=== PATIENT | female | born 1935 | race Caucasian/White ===

== ENCOUNTER 2020-01-25 10:12 | Outpatient (REF) | payer MEDICARE, SELFPAY ==
[2020-01-25 11:16] LABS: MANUAL DIFF FLAG NO
[2020-01-25 11:28] LABS: Basophils Absolute Auto 0.1 X10*3/uL (0.0-0.2); Basophils Percent Auto 0.7 % (0-2); Eosinophils Absolute Auto 0.4 X10*3/uL (0.0-0.4); Eosinophils Percent Auto 4.9 % (0-4); Hematocrit 41.4 % (37-47); Hemoglobin 12.9 g/dl (12.0-16.0); Imm Gran Abs Auto 0.02 X10*3/uL (0.00-0.03); Imm Gran Pct Auto 0.2 % (0.0-0.4); Lymphocytes Absolute Auto 1.8 X10*3/uL (1.2-4.9); Lymphocytes Percent Auto 21.5 % (20-40); Mean Corpuscular HGB Conc 31.2 g/dl (31.0-35.0); Mean Corpuscular Hemoglobin 28.5 pg (27.0-33.0); Mean Corpuscular Volume 91.6 fL (80-98); Mean Platelet Volume 9.8 fL (9.4-12.3); Monocytes Absolute Auto 0.8 X10*3/uL (0.1-1.2); Monocytes Percent Auto 9.1 % (2-11); Neutrophils Absolute Auto 5.4 X10*3/uL (2.0-8.3); Neutrophils Percent Auto 63.6 % (45-73); Platelet Count 420 X10*3/uL (160-400); Red Blood Count 4.52 X10*6/uL (4.20-5.50); Red Cell Distribution Width 14.2 % (11.0-16.0); White Blood Count 8.6 X10*3/uL (4.8-10.8)
[2020-01-25 11:54] LABS: Alanine Aminotransferase 11 U/L (0-31); Albumin Level 4.1 g/dL (3.5-5.0); Alkaline Phosphatase 125 U/L (39-117); Anion Gap 12 (12-20); Aspartate Amino Transferase 24 U/L (5-31); Bilirubin Total 0.8 mg/dL (0.0-1.0); Blood Urea Nitrogen 26 mg/dL (9-16); Calcium 9.5 mg/dL (8.4-10.2); Carbon Dioxide 35 mmol/L (22-29); Chloride 97 mmol/L (96-108); Cholesterol 129 mg/dL; Estimated Glomerular Filt Rate 40; Glucose Fasting 102 mg/dL (60-99); HDL Cholesterol 43 mg/dL; LDL Cholesterol Calculated 57 mg/dl; Potassium 3.8 mmol/l (3.3-5.1); Sodium 140 mmol/L (135-145); Total Protein 7.4 g/dL (6.5-8.0); Triglycerides 145 mg/dL; Uric Acid 3.7 mg/dL (2.4-5.7)
[2020-01-25 12:18] LABS: Thyroid Stimulating Hormone 3.45 mIU/mL (0.32-4.0); Vitamin D 25-OH Total 78.1 ng/mL (>30)
[2020-01-25 12:23] LABS: Folate 5.4 ng/mL (> or = 4.0); Vitamin B12 233 pg/mL (200-900)
[2020-01-25 12:47] LABS: T4 Thyroxine 11.2 ug/dL (4.5-12.0)
== END 2020-01-25 10:13 | disposition home or self-care (01) ==
LOC: HO.HMGCLDS 10:12
PROVIDERS: PCP Internal Medicine; Visit Provider Internal Medicine
DX: Z00.00 Encounter for general adult medical examination without abnormal findings (principal); E78.00 Pure hypercholesterolemia, unspecified; K21.9 Gastro-esophageal reflux disease without esophagitis; I10 Essential (primary) hypertension; M10.9 Gout, unspecified; E66.01 Morbid (severe) obesity due to excess calories; H81.09 Meniere's disease, unspecified ear; K59.00 Constipation, unspecified; Z85.51 Personal history of malignant neoplasm of bladder
CPT/HCPCS: 36415; 80053; 80061; 82306; 82607; 82746; 84436; 84443; 84550; 85025

== ENCOUNTER → 2020-04-25 14:41 | Outpatient (BNVA) | payer MEDICARE, SELFPAY | PROVIDERS: PCP Internal Medicine; Visit Provider Urology | DX: C67.9 Malignant neoplasm of bladder, unspecified (principal) | CPT/HCPCS: Q3014 ==

== ENCOUNTER 2020-05-20 10:32 | Outpatient (REF) | payer MEDICARE, SELFPAY ==
[2020-05-20 10:43] VITALS: BMI 92.0
[2020-05-20 10:45] VITALS: BP 131/64; PULSE 77; RESP 16; TEMP 36.3; O2SAT 95
== END 2020-05-20 10:33 | disposition home or self-care (01) ==
LOC: HO.MS 10:32
PROVIDERS: PCP Internal Medicine; Visit Provider Ophthalmology
PROC: (CPT 66821; principal; 2020-05-20 12:40)
DX: H26.491 Other secondary cataract, right eye (principal); Z96.1 Presence of intraocular lens; I12.9 Hypertensive chronic kidney disease with stage 1 through stage 4 chronic kidney disease, or unspecified chronic kidney disease; N18.30 Chronic kidney disease, stage 3 unspecified; Z85.51 Personal history of malignant neoplasm of bladder; Z87.891 Personal history of nicotine dependence; Z95.0 Presence of cardiac pacemaker; Z79.899 Other long term (current) drug therapy
CPT/HCPCS: 66821

== ENCOUNTER 2020-06-07 13:42 | Outpatient (REF) | payer MEDICARE, SELFPAY | END 2020-06-07 13:43 | disposition home or self-care (01) | LOC: CF 13:42 | PROVIDERS: PCP Internal Medicine; Visit Provider Urology | DX: C67.9 Malignant neoplasm of bladder, unspecified (principal) | CPT/HCPCS: Q3014 ==

== ENCOUNTER 2020-06-07 15:42 | Outpatient (REF) | payer MEDICARE, SELFPAY ==
--- NOTE | ~2020-06-07 | XR_ITS ---
EXAMINATION: XR WRIST, LEFT CLINICAL INFORMATION: Pain COMPARISON: None TECHNIQUE: Three views of the left wrist. FINDINGS: Bone alignment is normal. No fracture or dislocation is seen. There is severe arthritis at the first HALF-WAY joint with joint space narrowing and osteophyte formation and some periarticular soft tissue ossification. There is faint soft tissue calcification in the region of the triangular fibrocartilage complex. XR/XR wrist LT min 3V IMPRESSION: Severe arthritis at the first HALF-WAY joint.
== END 2020-06-07 15:43 | disposition home or self-care (01) ==
LOC: HO.HMGCX 15:42
PROVIDERS: PCP Internal Medicine; Visit Provider Hospitalist
DX: M25.532 Pain in left wrist (principal)
CPT/HCPCS: 73110

== ENCOUNTER 2020-06-11 06:11 | Day surgery (SDC) | payer MEDICARE, SELFPAY ==
--- NOTE | 2020-06-10 10:32 | P.CONAN_ITS ---
Documented by User: Sade Verena 06/10/20 12:05 HPI - Anesthesia Eval Consult details Narrative: 85yo F for TURBT Pt has cardiology appt 06/10/20 at 1500 Last TURBT 12/2019 with [facility] Active Problems Active Problems: All Active Problems (Updated 06/07/20 @ 15:31 by Chencho Ortiz DO) Left wrist pain (Acute) Vitamin B 12 deficiency (Acute) Impaired fasting blood sugar (Acute) Rosacea (Acute) Urinary bladder cancer (Acute) Obesity (Acute) Gout (Acute) Hypertension (Acute) GERD (gastroesophageal reflux disease) (Acute) Hypercholesterolemia (Acute) Past Medical History Medical History Arthritis GERD (gastroesophageal reflux disease) Gout Hypercholesterolemia Hypertension Menieres disease Obesity On beta jake at home MARIELA (obstructive sleep apnea) Peripheral vascular disease Sick sinus syndrome Urinary bladder cancer Vertigo Family History Family History Father Stroke Mother Heart disease Surgical History Surgical History History of appendectomy History of cataract surgery History of cholecystectomy History of cystoscopy History of knee replacement History of tonsillectomy Hx of colonoscopy S/P cardiac pacemaker procedure S/P MARION-BSO (total abdominal hysterectomy and bilateral salpingo-oophorectomy) Social History Social History Smoking Status: Former smoker Use of substances other than those prescribed or required for medical reasons: No Have you been hit, kicked, punched, or otherwise hurt by someone within the past year? If so, by whom?: No Advance Directives: No Advance Directives Information Provided: Yes Meds Allergies Allergy/AdvReac Type Severity Reaction Status Date / Time No Known Allergies Allergy Verified 06/07/20 15:23 [No Known Allergies*] Home Medications Medication Instructions Recorded Confirmed Last Taken Type amlodipine 5 mg tablet 5 mg PO DAILY 03/11/20 06/07/20 Unknown History aspirin 81 mg tablet,delayed 81 mg PO DAILY 03/11/20 06/07/20 Unknown History release cholecalciferol (vitamin D3) 25 25 mcg PO DAILY 03/11/20 06/07/20 Unknown History mcg (1,000 unit) capsule coenzyme Q10 100 mg capsule 100 mg PO DAILY 03/11/20 06/07/20 Unknown History hydrochlorothiazide 25 mg tablet 25 mg PO DAILY 03/11/20 06/07/20 Unknown History meclizine 25 mg tablet 25 mg PO DAILY 03/11/20 06/07/20 Unknown History metoprolol succinate 50 mg 50 mg PO DAILY 03/11/20 06/07/20 Unknown History tablet,extended release 24 hr polyethylene glycol 3350 17 gram 17 g PO DAILY 03/11/20 06/07/20 Unknown History oral powder packet simvastatin 1 tab PO BEDTIME 06/05/20 06/07/20 Unknown History bacitracin 500 unit/gram eye OPHTHALMIC (EYE) 06/07/20 06/07/20 Unknown History ointment Exam Exam Date and Time: June 10, 2020 1032 Pertinent Lab Results Pertinent Lab Results: Laboratory Tests 01/25/20 01/25/20 10:23 10:23 WBC 8.6 Hgb 12.9 Hct 41.4 Plt Count 420 H Sodium 140 Potassium 3.8 Chloride 97 Carbon Dioxide 35 H BUN 26 H Creatinine 1.27 Narrative Narrative: EKG 11/2019 A-sensed, V-paced @ 82 Pacer Interr 11/2019 DDR-60, battery life 4.5years, TUGGER OPERATOR 100% Documented by User: Emely Morales 06/11/20 07:30 HPI - Anesthesia Eval Consult details Narrative: Seen by cardiology yesterday. Stable from cardiac view point. Pacemaker working well. [facility] Past Medical History Medical History Arthritis GERD (gastroesophageal reflux disease) Gout Hypercholesterolemia Hypertension Menieres disease Obesity On beta jake at home MARIELA (obstructive sleep apnea) Peripheral vascular disease Sick sinus syndrome Urinary bladder cancer Vertigo Family History Family History Father Stroke Mother Heart disease Family history of problems with anesthesia: No Surgical History Surgical History History of appendectomy History of cataract surgery History of cholecystectomy History of cystoscopy History of knee replacement History of tonsillectomy Hx of colonoscopy S/P cardiac pacemaker procedure S/P MARION-BSO (total abdominal hysterectomy and bilateral salpingo-oophorectomy) History of Problems with Anesthesia: No Social History Social History Smoking Status: Former smoker Use of substances other than those prescribed or required for medical reasons: No Have you been hit, kicked, punched, or otherwise hurt by someone within the past year? If so, by whom?: No Advance Directives: No Advance Directives Information Provided: Yes Meds Allergies Allergy/AdvReac Type Severity Reaction Status Date / Time No Known Allergies Allergy Verified 06/07/20 15:23 [No Known Allergies*] Home Medications Medication Instructions Recorded Confirmed Last Taken Type amlodipine 5 mg tablet 5 mg PO DAILY 03/11/20 06/07/20 Unknown History aspirin 81 mg tablet,delayed 81 mg PO DAILY 03/11/20 06/07/20 Unknown History release cholecalciferol (vitamin D3) 25 25 mcg PO DAILY 03/11/20 06/07/20 Unknown History mcg (1,000 unit) capsule coenzyme Q10 100 mg capsule 100 mg PO DAILY 03/11/20 06/07/20 Unknown History hydrochlorothiazide 25 mg tablet 25 mg PO DAILY 03/11/20 06/07/20 Unknown History meclizine 25 mg tablet 25 mg PO DAILY 03/11/20 06/07/20 Unknown History metoprolol succinate 50 mg 50 mg PO DAILY 03/11/20 06/07/20 Unknown History tablet,extended release 24 hr polyethylene glycol 3350 17 gram 17 g PO DAILY 03/11/20 06/07/20 Unknown History oral powder packet simvastatin 1 tab PO BEDTIME 06/05/20 06/07/20 Unknown History bacitracin 500 unit/gram eye OPHTHALMIC (EYE) 06/07/20 06/07/20 Unknown History ointment Exam Height,Weight and Vital Signs: Vital Signs Temp Pulse Resp BP Pulse Ox 06/11/20 06:18 95.9 F L 74 18 151/75 H 96 Airway Mallampati Class: II TM Dist: >3cm Neck ROM: Full Denture: Upper and Lower Heart: RRR Lungs: CTAB Assessment and Plan Assessment Anesthesia Assessment: Anesthesia Plan Discussed and Chart Reviewed Final Anesthetic Review NPO: Yes ASA Class: III Final Preanesthetic Review: No Changes in Pt Med Stat, Meds/Allgs Chart Reviewed, Consent Obtained/Reviewed and Anes Risks/Benef Reviewed Patient Risk: Intermediate Procedure Risk: Intermediate Assessment/Block/Sedation in SS: Assess/Block/Sedation-SS Anesthetic Plan Anesthetic Plan: MAC: Disposition: Standard PACU
[2020-06-11 06:18] VITALS: BP 151/75; PULSE 74; RESP 18; TEMP 35.5; O2SAT 96; BMI 40.8
[2020-06-11] MEDS: Lactated Ringers 1,000 ML 50 ML IV (06:51)
--- NOTE | 2020-06-11 07:24 | MHC.SHP ---
Pre-Procedural Eval Section A The patient is an INPATIENT: No Changes since office visit: No Cold of Flu in the past 2 weeks, No New Medical Problems, No Changes in Medication and No Patient answered all questions The History & Physical has been completed within 30 days and I have reviewed it.: Yes Section B Chief Complaint: malignant of bladder Allergies: Allergies Allergy/AdvReac Type Severity Reaction Status Date / Time No Known Allergies Allergy Verified 06/07/20 15:23 [No Known Allergies*] Plan Diagnosis/Plan: Unchanged I have reviewed the history and physical and performed a pertinent physical examination on my patient. No changes have occurred unless specified. TURBT
[2020-06-11] MEDS: levoFLOXacin 500 MG TABLET PO (07:32)
--- NOTE | 2020-06-11 08:04 | PM.OP ---
Brief Operative Note Date of Service: 06/11/20 Pre-op diagnosis: Recurrent Bladder cancer Post-op diagnosis: same Procedure: TURBT multiple approximately 16. Ranging in size from 3 mm to 7 mm Surgeon: Francisco Dowell MD Anesthesia: GLMA Estimated blood loss (mL): 0 Pathology: other (Bladder cancer) Condition: stable Disposition: same day
--- NOTE | 2020-06-11 08:05 | W.PM.OPN ---
Operative Note Operative Note Date of Service: 06/11/20 Narrative: PreOperative Diagnosis: Recurrent bladder tumor Post Operative Diagnosis: Recurrent bladder cancer Procedure: TURBT-16 lesions, total surface area approximately 5 cm Surgeon: Dr Francisco Dowell Anesthesia: General Indications for procedure: This is a pleasant 85-year-old female. Prior history of bladder cancer. Typically had low-grade lesions in the past. Last TURBT in December 2019 did have high-grade noninvasive bladder cancer. She was due for 3 month review and this was delayed secondary to COVID. She is aware of the risks and benefits. Procedure: After informed consent was verified the patient was brought to the operating room and placed in a supine position. anesthesia was administered per protocol. The patient was placed in modified dorsal lithotomy position and prepped and draped in a sterile fashion. Safety pause time-out was performed. Antibiotics have been given. Resectoscope was placed. There were a large number of small between 3 mm and 7 mm lesions scattered throughout her bladder. These were removed with either cutting dissection or fulguration. Approximately 16 in nature. They came close to both ureteric orifices and at the bladder neck. Otherwise well mostly concentrated towards the dome of the bladder. Specimens were taken sent for pathology. Since most of the Christal resection was superficial decision was made not to leave Rivera catheter Completion of procedure above [facility] and opiate suppository was used for pain management She will require intravesical therapy after 2-4 week healing time frame. Pathology: Bladder cancer Drains: None
[2020-06-11 08:12] VITALS: BP 97/47; PULSE 70; RESP 20; TEMP 36.7; O2SAT 100
[2020-06-11 08:27] VITALS: BP 103/49; PULSE 60; RESP 20; O2SAT 93
[2020-06-11 08:42] VITALS: BP 105/56; PULSE 60; RESP 20; TEMP 36.7; O2SAT 94
== END 2020-06-11 09:29 | disposition home or self-care (01) ==
PROVIDERS: PCP Internal Medicine; Visit Provider Urology
PROC: 0TBB8ZZ Excision of Bladder, Via Natural or Artificial Opening Endoscopic (ICD-10-PCS; CPT 52235; principal; 2020-06-11 07:30)
DX: C67.8 Malignant neoplasm of overlapping sites of bladder (principal); Z85.51 Personal history of malignant neoplasm of bladder; I10 Essential (primary) hypertension; G47.33 Obstructive sleep apnea (adult) (pediatric); I73.9 Peripheral vascular disease, unspecified; H81.09 Meniere's disease, unspecified ear; I49.5 Sick sinus syndrome; Z79.899 Other long term (current) drug therapy
CPT/HCPCS: 52235; 88307; J1100; J2370; J2405; J3010

== ENCOUNTER → 2020-06-25 15:06 | Outpatient (BNVA) | payer MEDICARE, SELFPAY | PROVIDERS: PCP Internal Medicine; Visit Provider Urology | DX: Z13.89 Encounter for screening for other disorder (principal) | CPT/HCPCS: Q3014 ==

== ENCOUNTER 2020-07-29 14:19 | Outpatient (REF) | payer MEDICARE, SELFPAY ==
[2020-07-29 14:35] LABS: Glucose Urine UA NEG (NEG); Leukocyte Esterase Urine TRACE (NEG); Nitrite Urine NEG (NEG); Specific Gravity - Urine <= 1.005 (1.005-1.025); Urine Blood NEG (NEG); Urine Ketones NEG (NEG); Urine Protein NEG (NEG-TRACE)
[2020-07-29 14:47] LABS: Appearance Urine CLEAR; Color Urine YELLOW
[2020-07-29 15:07] LABS: Bacteria Urine TRACE /LPF; RBC Urine 0 /HPF (0); Squamous Epithelial Cell Urine TRACE /LPF
== END 2020-07-29 14:20 | disposition home or self-care (01) ==
LOC: HO.LNP 14:19
PROVIDERS: Visit Provider Urology
DX: C67.9 Malignant neoplasm of bladder, unspecified (principal)
CPT/HCPCS: 81001

== ENCOUNTER 2020-09-05 09:10 | Outpatient (REF) | payer MEDICARE, SELFPAY ==
[2020-09-05 13:54] LABS: MANUAL DIFF FLAG NO
[2020-09-05 14:03] LABS: Basophils Absolute Auto 0.1 X10*3/uL (0.0-0.2); Basophils Percent Auto 0.8 % (0-2); Eosinophils Absolute Auto 0.3 X10*3/uL (0.0-0.4); Eosinophils Percent Auto 3.1 % (0-4); Hematocrit 37.5 % (37-47); Hemoglobin 11.8 g/dl (12.0-16.0); Imm Gran Abs Auto 0.04 X10*3/uL (0.00-0.03); Imm Gran Pct Auto 0.4 % (0.0-0.4); Immature Retic Fraction 26.1 % (3.0-15.9); Lymphocytes Percent Auto 21.9 % (20-40); Mean Corpuscular HGB Conc 31.5 g/dl (31.0-35.0); Mean Corpuscular Hemoglobin 27.8 pg (27.0-33.0); Mean Corpuscular Volume 88.4 fL (80-98); Mean Platelet Volume 9.7 fL (9.4-12.3); Monocytes Percent Auto 10.5 % (2-11); Neutrophils Absolute Auto 5.8 X10*3/uL (2.0-8.3); Neutrophils Percent Auto 63.3 % (45-73); Platelet Count 467 X10*3/uL (160-400); Red Blood Count 4.24 X10*6/uL (4.20-5.50); Red Cell Distribution Width 18.5 % (11.0-16.0); Retic HGB Equivalent 30.2 pg (30.0-35.0); Reticulocyte Percent 1.6 % (0.5-1.8); Reticulocytes Absolute 0.067 X10*6/uL (0.026-0.095); White Blood Count 9.2 X10*3/uL (4.8-10.8)
[2020-09-05 14:07] LABS: Estimated Average Glucose 123 mg/dL; Hemoglobin A1c % 5.9 %
[2020-09-05 14:32] LABS: Alanine Aminotransferase 8 U/L (0-31); Albumin Level 3.9 g/dL (3.5-5.0); Alkaline Phosphatase 123 U/L (39-117); Anion Gap 16 (12-20); Aspartate Amino Transferase 23 U/L (5-31); Bilirubin Total 0.7 mg/dL (0.0-1.0); Blood Urea Nitrogen 19 mg/dL (9-16); Calcium 9.5 mg/dL (8.4-10.2); Carbon Dioxide 29 mmol/L (22-29); Chloride 97 mmol/L (96-108); Cholesterol 118 mg/dL; Estimated Glomerular Filt Rate 50; Glucose Random 96 mg/dL (60-115); HDL Cholesterol 44 mg/dL; Iron 44 mcg/dL (30-160); LDL Cholesterol Calculated 56 mg/dl; Percent Iron Saturation 10 % (15-50); Sodium 138 mmol/L (135-145); Total Iron Binding Capacity 438 mcg/dL (228-428); Total Protein 7.3 g/dL (6.5-8.0); Triglycerides 90 mg/dL; Unsaturated Iron Binding 394 ug/dL; Uric Acid 3.7 mg/dL (2.4-5.7)
[2020-09-05 14:55] LABS: Ferritin 24 ng/mL (10-250); Free T4 (Free Thyroxine) 1.28 ng/dL (0.71-1.85); Thyroid Stimulating Hormone 1.91 uIU/mL (0.32-4.0)
[2020-09-05 15:00] LABS: Folate 4.3 ng/mL (> or = 4.0); Vitamin B12 204 pg/mL (200-900)
== END 2020-09-05 09:11 | disposition home or self-care (01) ==
LOC: HO.HMGCLDS 09:10
PROVIDERS: PCP Internal Medicine; Visit Provider Urology
DX: C67.9 Malignant neoplasm of bladder, unspecified (principal); E78.00 Pure hypercholesterolemia, unspecified; E53.8 Deficiency of other specified B group vitamins; R73.01 Impaired fasting glucose; M1A.9XX0 Chronic gout, unspecified, without tophus (tophi)
CPT/HCPCS: 36415; 80053; 80061; 82306; 82607; 82728; 82746; 83036; 83540; 84439; 84443; 84550; 85025; 85045; 99212

== ENCOUNTER 2020-10-07 08:38 | Day surgery (SDC) | payer MEDICARE, SELFPAY ==
[2020-10-01 10:19] VITALS: BMI 40.8
[2020-10-07 09:05] VITALS: BP 143/61; PULSE 70; RESP 18; TEMP 37.1; O2SAT 94
[2020-10-07] MEDS: levoFLOXacin 500 MG TABLET PO (09:11)
--- NOTE | 2020-10-07 09:31 | P.CONAN_ITS ---
[facility] Active Problems Active Problems: All Active Problems (Updated 10/01/20 @ 10:22 by Sakina guadarrama) Vitamin B 12 deficiency (Acute) Impaired fasting blood sugar (Acute) Rosacea (Acute) Left wrist pain (Acute) Tinea corporis (Acute) Peripheral vascular disease (Acute) Urinary bladder cancer (Acute) Obesity (Acute) Gout (Acute) Hypertension (Acute) GERD (gastroesophageal reflux disease) (Acute) Hypercholesterolemia (Acute) Past Medical History Medical History Arthritis COVID-19 vaccine administered GERD (gastroesophageal reflux disease) Gout Hypercholesterolemia Hypertension Menieres disease Obesity On beta jake at home MARIELA (obstructive sleep apnea) Peripheral vascular disease Sick sinus syndrome Urinary bladder cancer Vertigo Family History Family History Father Stroke Mother Heart disease Family history of problems with anesthesia: No Surgical History Surgical History History of appendectomy History of cataract surgery History of cholecystectomy History of cystoscopy History of knee replacement History of tonsillectomy Hx of colonoscopy S/P cardiac pacemaker procedure S/P MARION-BSO (total abdominal hysterectomy and bilateral salpingo-oophorectomy) History of Problems with Anesthesia: No Social History Social History Alcohol intake: current Alcohol intake frequency: holidays/special occasions only Patient Tobacco Use Status: Tobacco use Unknown Use of substances other than those prescribed or required for medical reasons: No Advance Directives Information Provided: No Meds Allergies Allergy/AdvReac Type Severity Reaction Status Date / Time No Known Allergies Allergy Verified 09/05/20 09:23 [No Known Allergies*] Home Medications Medication Instructions Recorded Confirmed Last Taken Type amlodipine 5 mg tablet 5 mg PO DAILY 03/11/20 10/01/20 10/07/20 History aspirin 81 mg tablet,delayed 81 mg PO DAILY 03/11/20 10/01/20 10/01/20 History release cholecalciferol (vitamin D3) 25 25 mcg PO DAILY 03/11/20 10/01/20 Unknown History mcg (1,000 unit) capsule coenzyme Q10 100 mg capsule 100 mg PO DAILY 03/11/20 09/03/20 Unknown History hydrochlorothiazide 25 mg tablet 25 mg PO DAILY 03/11/20 10/01/20 Unknown History meclizine 25 mg tablet 25 mg PO DAILY 03/11/20 10/01/20 Unknown History metoprolol succinate 50 mg 50 mg PO DAILY 03/11/20 10/01/20 10/07/20 History tablet,extended release 24 hr polyethylene glycol 3350 17 gram 17 g PO DAILY 03/11/20 10/01/20 Unknown History oral powder packet peg 400-propylene glycol [Systane drp OPHTHALMIC (EYE) 07/09/20 09/03/20 Unknown History Liquid Gel] cyclosporine 0.05 % eye drops in a 1 drp OPHTHALMIC (EYE) BID 09/05/20 Unknown History dropperette lifitegrast 5 % eye drops in a 1 drp OPHTHALMIC (EYE) BID 09/05/20 Unknown History dropperette metronidazole 0.75 % topical cream 1 appl TOPICAL BID 09/05/20 Unknown History Exam Exam Date and Time: October 07, 2020 0931 Height,Weight and Vital Signs: Height 5 ft 1 in Weight 97.976 kg Last Vital Signs Temp 98.7 F 10/07/20 09:05 Pulse 70 10/07/20 09:05 Resp 18 10/07/20 09:05 BP 143/61 H 10/07/20 09:05 Pulse Ox 94 10/07/20 09:05 Airway Mallampati Class: II TM Dist: >3cm Neck ROM: Full Assessment and Plan Assessment Anesthesia Assessment: Anesthesia Plan Discussed and Chart Reviewed Final Anesthetic Review NPO: Yes ASA Class: III Final Preanesthetic Review: No Changes in Pt Med Stat, Meds/Allgs Chart Reviewed, Consent Obtained/Reviewed and Anes Risks/Benef Reviewed Patient Risk: Intermediate Procedure Risk: Low Assessment/Block/Sedation in SS: Assess/Block/Sedation-SS Anesthetic Plan Anesthetic Plan: MAC: Disposition: Standard PACU
--- NOTE | 2020-10-07 10:08 | MHC.SHP ---
Pre-Procedural Eval Section A Date of Service: 10/07/20 The patient is an INPATIENT: No Changes since office visit: No Cold of Flu in the past 2 weeks, No New Medical Problems, No Changes in Medication and No Patient answered all questions The History & Physical has been completed within 30 days and I have reviewed it.: Yes Section B Chief Complaint: malignant neoplasm of bladder Allergies: Allergies Allergy/AdvReac Type Severity Reaction Status Date / Time No Known Allergies Allergy Verified 09/05/20 09:23 [No Known Allergies*] Plan Diagnosis/Plan: Unchanged ( cystoscopy, bladder biopsy, fulguration) I have reviewed the history and physical and performed a pertinent physical examination on my patient. No changes have occurred unless specified.
[2020-10-07] MEDS: Lactated Ringers 500 ML 20 ML IVCONT (10:15)
[2020-10-07 10:35] VITALS: BP 118/41; PULSE 60; RESP 16; TEMP 36.4; O2SAT 99
--- NOTE | 2020-10-07 10:35 | W.PM.OPN ---
Operative Note Operative Note Date of Service: 10/07/20 Narrative: PreOperative Diagnosis: bladder cancer Post Operative Diagnosis: bladder cancer Procedure: TURBT Surgeon: Dr Francisco Dowell Anesthesia: general Indications for procedure: Joya is a pleasant 85-year-old female. Had bladder cancer diagnosed late last year. Has undergone TURBT x2. Had induction gemcitabine. She is here for her 3 month check cystoscopy and biopsy is needed. Procedure: After informed consent was verified the patient was brought to the operating room and placed in a supine position. anesthesia was administered per protocol. the patient was placed in a modified dorsal lithotomy position and prepped and draped in a sterile fashion. Safety pause time-out was performed. Antibiotics were confirmed. A 26 Malay continuous flow resectoscope was inserted per urethra. The visual obturator was used in order to minimize potential for urethral damage. The bladder was examined in its entirety. There were 4 x 8 mm lesions. These lesions were on the dome of the bladder and on the right lateral sidewall of the bladder near the urethra. They were all carefully resected and fulgurated. There was an area of atypical change which was also fulgurated. At completion pathology was collected And will be sent for examination. The patient Tolerated the procedure well. They were extubated in the operating room and transferred in stable condition to the recovery area. plan for 3 weeks boost gemcitabine Pathology: bladder cancer Drains: none
[2020-10-07] MEDS: Phenazopyridine HCL 100 MG TABLET PO (10:45)
[2020-10-07 10:50] VITALS: BP 120/42; PULSE 60; RESP 16; TEMP 36.4; O2SAT 95
== END 2020-10-07 11:13 ==
LOC: HO.SSS 08:44
PROVIDERS: PCP Internal Medicine; Visit Provider Urology
PROC: 0TBB8ZZ Excision of Bladder, Via Natural or Artificial Opening Endoscopic (ICD-10-PCS; CPT 52235; principal; 2020-10-07 10:30)
DX: C67.8 Malignant neoplasm of overlapping sites of bladder (principal); I10 Essential (primary) hypertension; I49.5 Sick sinus syndrome; I44.1 Atrioventricular block, second degree; G47.33 Obstructive sleep apnea (adult) (pediatric); Z90.49 Acquired absence of other specified parts of digestive tract; Z95.0 Presence of cardiac pacemaker; Z79.82 Long term (current) use of aspirin; Z79.899 Other long term (current) drug therapy; Z87.891 Personal history of nicotine dependence
CPT/HCPCS: 52235; 88307; J1100; J2250; J2405; J3010

== ENCOUNTER 2021-01-09 10:07 | Outpatient (REF) | payer MEDICARE, SELFPAY ==
[2021-01-09 14:36] LABS: Alanine Aminotransferase 11 U/L (0-31); Albumin Level 3.8 g/dL (3.5-5.0); Alkaline Phosphatase 176 U/L (39-117); Anion Gap 14 (12-20); Aspartate Amino Transferase 25 U/L (5-31); Bilirubin Total 0.8 mg/dL (0.0-1.0); Blood Urea Nitrogen 21 mg/dL (9-16); Calcium 9.2 mg/dL (8.4-10.2); Carbon Dioxide 29 mmol/L (22-29); Chloride 100 mmol/L (96-108); Estimated Glomerular Filt Rate 51; Glucose Fasting 91 mg/dL (60-99); Potassium 3.8 mmol/L (3.3-5.1); Sodium 139 mmol/L (135-145); Total Protein 7.1 g/dL (6.5-8.0)
== END 2021-01-09 10:08 | disposition home or self-care (01) ==
LOC: HO.10HDL 10:07
PROVIDERS: Visit Provider Nurse Practitioner Family
DX: Z13.1 Encounter for screening for diabetes mellitus (principal)
CPT/HCPCS: 36415; 80053

== ENCOUNTER 2021-01-13 08:32 | Day surgery (SDC) | payer MEDICARE, SELFPAY ==
[2021-01-08 08:45] VITALS: BMI 43.2
[2021-01-13 08:50] VITALS: BMI 42.5
[2021-01-13 09:05] VITALS: BP 148/72; PULSE 81; RESP 16; TEMP 36.3; O2SAT 93
[2021-01-13] MEDS: Lactated Ringers 1,000 ML 100 ML IVCONT (09:13)
[2021-01-13] MEDS: levoFLOXacin/D5W 500 MG/100 ML PIGGYBACK 100 MG IV (09:18)
--- NOTE | 2021-01-13 10:12 | MHC.SHP ---
Pre-Procedural Eval Section A Date of Service: 01/13/21 Section B Chief Complaint: malignant neoplasm of bladder Details of Present Illness: Bladder tumor Relevant Social History: Tobacco Use Present Medications: see Short Stay Collaborative assessment Medical History: No relevant PMH History of Previous Operations: Relevant previous surgery/procedure and date(s) Allergies: Allergies Allergy/AdvReac Type Severity Reaction Status Date / Time No Known Allergies Allergy Verified 01/06/21 16:15 [No Known Allergies*] Review of Systems Sugical H&P ROS: Negative: Constitution, Cardiovascular, Respiratory, Neurological, Psychiatric, Hem-Onc, Allergic/Immunologic, Gastrointestinal, Genitourinary, Musculoskeletal, Integumentary, Endocrine and Eyes/Ears/Nose/Throat Exam Surgical H&P Exam: Normal: HEENT, Normal: Heart, Normal: Lungs, Normal: Extremities, Normal: Abdomen, Normal: Skin and Normal: Neurological Plan Diagnosis/Plan: Unchanged (restaging TURBT bladder biopsy) I have reviewed the history and physical and performed a pertinent physical examination on my patient. No changes have occurred unless specified.
--- NOTE | 2021-01-13 10:53 | W.PM.OPN ---
Operative Note Operative Note Date of Service: 01/13/21 Narrative: PreOperative Diagnosis: bladder cancer Post Operative Diagnosis: bladder cancer Procedure: Cystoscopy, Biopsy of lesion and fulguration of other lesions - 7 lesions total managed with fulguration or biopsy Surgeon: Dr Francisco Dowell Anesthesia: general Indications for procedure: Follow-up cystoscopy with biopsy and fulguration of lesions. Initial diagnosis September 2020 with high-grade superficial bladder cancer. Procedure: After informed consent was verified the patient was brought to the operating room and placed in a supine position. Anesthesia was administered per protocol. The patient was placed in a modified dorsal lithotomy position and prepped and draped in a sterile fashion. Safety pause time-out was performed. Antibiotics were confirmed. Twenty-two Korean cystoscope inserted per urethra. Multiple small lesions was seen. There were 2 lesions that were large enough to be biopsied and removed. One on the back wall of on the lower left sidewall. Other lesions were fulgurated. These 2 lesions were fulgurated plus for other lesions were fulgurated including a 1 cm lesion on the anterior wall and a lesion near the trigone. They all appeared to be noninvasive. The patient Tolerated the procedure well. They were extubated in the operating room and transferred in stable condition to the recovery area. Plan will be for gemcitabine outpatient management Pathology: Bladder tumors Drains: None
[2021-01-13 11:09] VITALS: BP 110/32; PULSE 67; RESP 12; TEMP 36.2; O2SAT 97
[2021-01-13 11:14] VITALS: BP 99/47; PULSE 50; RESP 18; O2SAT 93
[2021-01-13 11:19] VITALS: BP 107/51; PULSE 54; RESP 18; O2SAT 93
[2021-01-13 11:23] VITALS: BP 110/41; PULSE 50; RESP 18; TEMP 36.2; O2SAT 93
== END 2021-01-13 12:20 | disposition home or self-care (01) ==
PROVIDERS: PCP Internal Medicine; Visit Provider Urology
PROC: 0TJB8ZZ Inspection of Bladder, Via Natural or Artificial Opening Endoscopic (ICD-10-PCS; CPT 52000; principal; 2021-01-13 10:00)
DX: C67.9 Malignant neoplasm of bladder, unspecified (principal); I10 Essential (primary) hypertension
CPT/HCPCS: 52234; 88305; J1956; J3010

== ENCOUNTER → 2021-01-22 08:22 | Outpatient (BNVA) | payer MEDICARE, SELFPAY | DX: C67.9 Malignant neoplasm of bladder, unspecified (principal) | CPT/HCPCS: Q3014 ==

== ENCOUNTER → 2021-02-17 11:58 | Outpatient (BNVA) | payer MEDICARE, SELFPAY | PROVIDERS: PCP Internal Medicine; Referring Provider Internal Medicine; Visit Provider Internal Medicine | DX: Z45.018 Encounter for adjustment and management of other part of cardiac pacemaker (principal); I10 Essential (primary) hypertension; E78.5 Hyperlipidemia, unspecified; R60.0 Localized edema | CPT/HCPCS: 93005; 99202 ==

== ENCOUNTER → 2021-03-17 13:50 | Outpatient (BNVA) | payer MEDICARE, SELFPAY | PROVIDERS: PCP Internal Medicine | DX: C67.9 Malignant neoplasm of bladder, unspecified (principal) | CPT/HCPCS: 99212 ==

== ENCOUNTER → 2021-03-26 09:20 | Outpatient (REF) | payer MEDICARE, SELFPAY ==
--- NOTE | 2021-03-26 09:23 | CA_ITS ---
Transthoracic Echocardiogram Patient (Last, First, Middle): Gricelda Fischer M Gender: Female Date of : 1935 Age: 85 Procedure Date: 03/26/2021 Procedure Type: Transthoracic Echocardiogram Location: OP Height: 154.94 cm Weight: 95.26 kg BSA: 1.93 m2 Heart Rate: bpm BP: 116 / 60 mmHg Senior Marketing Manager: Referring MD: Efren Cavanaugh MD Manager Of Application Development: Facundo Solis MD Symptoms: I10 - Essential hypertension, R60.0 LOCALIZED EDEMA Study Quality: Fair ECG Rhythm: Ventriculary paced rhythm Conclusions: - 1. Normal LV systolic function with impaired relaxation filling pattern 2. Mild mitral regurgitation 3. [id number] tricuspid regurgitation with normal RV systolic pressure 4. No pericardial effusion Findings Left Ventricle Normal left ventricular size, thickness, and systolic function. The visually estimated ejection fraction is between 60-65%. There is paradoxical septal motion consistent with a right ventricular pacemaker. Spectral Doppler is indicative of an impaired relaxation filling pattern. E/E prime ratio is between 8 and 15 consistent with indeterminate filling pressures. Right Ventricle Normal right ventricular cavity size and systolic function. There is a pacemaker wire seen in the right ventricle. Atria The left atrium is likely dilated. Interatrial shunt cannot be excluded. The right atrium is mildly dilated. A pacemaker wire is identified in the right atrium. Aortic Valve Normal aortic valve structure and function. There is no aortic valve stenosis. There is no aortic valve regurgitation. Mitral Valve There is mild anterior and posterior mitral leaflet thickening. There is mild mitral valve regurgitation. There is no mitral valve stenosis. Pulmonic Valve The pulmonic valve was not well visualized. Tricuspid Valve Normal tricuspid valve structure. There is mild to moderate tricuspid valve regurgitation. The right ventricular systolic pressure is normal. The right ventricular systolic pressure is 31 mmHg. There is no evidence of pulmonary hypertension. Great Vessels All visible segments of the aorta are normal in size. The pulmonary artery was not well visualized. Venous The inferior vena cava is normal in size and collapses greater than 50% with inspiration. Pericardium/Pleural There is no evidence of pericardial effusion. Prior Study Comparison no previous study in the last 5 years for comparison Measurements 2D Linear Measurements IVSd: 0.92 0.6-0.9/0.6-1.0 cm LVIDd: 4.63 3.9-5.3/4.2-5.9 cm LVIDd Index: 2.40 2.4-3.2/2.2-3.1 cm/m2 LVIDs: 2.97 2.0-3.6 cm LVPWd: 0.95 0.7-1.1 cm Ao Root: 2.80 2.1-3.5 cm LA Diam: 3.70 2.7-3.8/3.0-4.0 cm LAIDs Index: 1.92 1.5-2.3 cm/m2 LV Mass: 181.73 67-162/88-224 g LV Mass Index: 94.16 43-95/49-115 g/m2 LVOT Diam: 2.00 3.0+(-)1.3 cm 2D Systolic Function EF 4C: 63.80 >55% EF 2C: 58.90 >55% EF BiP: 60.20 >55% Mitral Valve MV Pk E: 0.99 MV PK A: 1.16 MV Decel Time: 261.00 E/A: 0.80 E'Lateral: 7.72 E'Medial: 5.33 E/E' Med: 18.50 E/E' Lat: 12.80 PHT: 76.00 MVA PHT: 2.89 Decel Graham: 3.78 Aortic Valve AoV Pk Jaguar: 1.38 AoV Mn Jaguar: 0.89 AoV VTI: 0.35 AoV Pk Grad: 8.00 Aov Mn Grad: 4.00 JEANNETTE Cont.VTI: 1.99 LVOT LVOT Pk Jaguar: 0.95 LVOT Mn Jaguar: 0.59 LVOT VTI: 0.22 LVOT Pk Grad: 4.00 LVOT Mn Grad: 2.00 LVOT Diam: 2.00 LVOT Area: 3.14 Diastolic Function MV Pk E: 0.99 MV Pk A: 1.16 E/A: 0.80 E'Medial: 5.33 E/E' Med: 18.50 E' Laterial: 7.72 E/E' Lat: 12.80 Right Ventricle TAPSE (mm): 20.00 Tricuspid Valve TR Pk Jaguar: 2.65 TR Pk Grad: 28.00 RA Press: 3.00 RVSP: 31.00 Great Vessels Aorta Ao Root-2D: 2.80 2.0-3.7 cm Ao Asc: 3.30 2.1-3.4 cm Pulmonary Valve PV Pk Jaguar: 1.37 Peak PV Grad: 8.00 Updated in Other Vendor System with Status of Final Facundo Solis MD electronically signed on 03/27/2021 3:59:54 PM with status of Final
== END ==
LOC: HO.CARD 09:20
PROVIDERS: PCP Internal Medicine; Visit Provider Internal Medicine
DX: I10 Essential (primary) hypertension (principal); R60.0 Localized edema
CPT/HCPCS: 93306

== ENCOUNTER 2021-05-29 13:21 | Outpatient (REF) | payer MEDICARE, SELFPAY ==
--- NOTE | ~2021-05-29 | MM_ITS ---
EXAMINATION: BONE DENSITOMETRY CLINICAL INDICATION: Menopause. COMPARISON: Baseline BD dated 08/01/2010. TECHNIQUE: Using a [employer] DXA System (software version: 13.1) manufactured by [employer], dual-energy x-ray absorptiometry was performed of the lumbar spine and left hip. The images are of good technical quality. Summary results are attached. FINDINGS: AP SPINE L1-L3 (excluding L4): The data of L1-L4 has been changed to exclude the L4 vertebral body, because degenerative changes at this level may cause overestimation of lumbar spine density. Current: BMD 1.355 g/cm2, Z-score 2.3, T-score 1.5, normal, 4.0% decrease from baseline (<5% change is not significant). Baseline: BMD 1.411 g/cm2. LEFT FEMUR, NECK: Current: BMD 0.857 g/cm2, Z-score 0.3, T-score -1.3, osteopenia. Baseline: BMD 0.956 g/cm2. LEFT FEMUR, TOTAL: Current: BMD 1.005 g/cm2, Z-score 1.4, T-score 0.0, normal, 11.0% decrease from baseline (<5% change is not significant). Baseline: BMD 1.129 g/cm2. IDENTIFIED RISK FACTORS: Height loss, low calcium intake, renal, thiazide, menopause, hysterectomy, bilateral oophorectomy. HISTORY OF FRACTURE: None listed. MEDICATIONS: Vitamin D. MM/XR DEXA axial skeleton IMPRESSION: 1. DIAGNOSIS: Osteopenia based on the lowest T-score value of -1.3 in the femoral neck applying World Health Organization criteria. 2. 10-YEAR FRACTURE RISK PREDICTION, FRAX: Major osteoporotic fracture (clinical spine, forearm, hip or shoulder) 11.2%. Hip fracture 2.6%. 3. Treatment Recommendations: NOF guidelines recommend consideration for treatment in postmenopausal women and men age 50 and older presenting with the following: -A hip or vertebral (clinical or morphometric) fracture. -T-score less than or equal to -2.5 at the femoral neck or spine after appropriate evaluation to exclude secondary causes. -Low bone mass at the hip or spine and a 10-year fracture probability by FRAX of greater than or equal to 3% for hip fracture or greater than or equal to 20% for major osteoporotic fracture based on the [place] adapted WHO algorithm. 4. Other Recommendations: All treatment decisions require clinical judgment and consideration of individual patient factors, including patient preferences, comorbidities, previous drug use, risk factors not captured in the FRAX model (e.g. frailty, falls, vitamin D deficiency, increased bone turnover, interval significant decline in bone density) and possible under or overestimation of fracture risk by FRAX. Additional medical evaluation for secondary cause of low bone mineral density may be appropriate. FUTURE SCAN RECOMMENDATION: People with diagnosed cases of osteoporosis or at high risk for fracture should have regular bone mineral density tests. For patients eligible for Medicare, routine testing is allowed once every 2 years. The testing frequency can be increased to one year for patients who have rapidly progressing disease, those who are receiving or discontinuing medical therapy to restore bone mass, or have additional risk factors.
== END 2021-05-29 13:22 | disposition home or self-care (01) ==
LOC: HO.MAMMO 13:21
PROVIDERS: PCP Internal Medicine; Visit Provider Nurse Practitioner Family
DX: Z13.820 Encounter for screening for osteoporosis (principal); Z78.0 Asymptomatic menopausal state; M85.80 Other specified disorders of bone density and structure, unspecified site; Z79.899 Other long term (current) drug therapy
CPT/HCPCS: 77080

== ENCOUNTER 2021-06-13 10:48 | Outpatient (REF) | payer MEDICARE, SELFPAY ==
[2021-06-13 12:06] LABS: MANUAL DIFF FLAG NO
[2021-06-13 12:08] LABS: Basophils Absolute Auto 0.1 X10*3/uL (0.0-0.2); Basophils Percent Auto 0.8 % (0-2); Eosinophils Absolute Auto 0.3 X10*3/uL (0.0-0.4); Eosinophils Percent Auto 3.8 % (0-4); Hematocrit 37.4 % (37.0-47.0); Hemoglobin 11.5 g/dl (12.0-16.0); Imm Gran Abs Auto 0.02 X10*3/uL (0.00-0.03); Imm Gran Pct Auto 0.3 % (0.0-0.4); Lymphocytes Absolute Auto 1.9 X10*3/uL (1.2-4.9); Mean Corpuscular HGB Conc 30.7 g/dl (31.0-35.0); Mean Corpuscular Hemoglobin 27.2 pg (27.0-33.0); Mean Corpuscular Volume 88.4 fL (80.0-98.0); Mean Platelet Volume 9.6 fL (9.4-12.3); Monocytes Absolute Auto 0.7 X10*3/uL (0.1-1.2); Monocytes Percent Auto 10.8 % (2-11); Neutrophils Absolute Auto 3.7 x10*3/uL (2.0-8.3); Neutrophils Percent Auto 55.3 % (45-73); Platelet Count 409 X10*3/uL (160-400); Red Blood Count 4.23 X10*6/uL (4.20-5.50); Red Cell Distribution Width 16.3 % (11.0-16.0); White Blood Count 6.7 X10*3/uL (4.8-10.8)
[2021-06-13 12:20] LABS: Estimated Average Glucose 126 mg/dL
[2021-06-13 12:39] LABS: Alanine Aminotransferase 7 U/L (0-31); Albumin Level 3.8 g/dL (3.5-5.0); Alkaline Phosphatase 162 U/L (39-117); Anion Gap 13 (12-20); Aspartate Amino Transferase 25 U/L (5-31); Bilirubin Total 0.6 mg/dL (0.0-1.0); Blood Urea Nitrogen 21 mg/dL (9-16); Calcium 9.6 mg/dL (8.4-10.2); Carbon Dioxide 32 mmol/L (22-29); Chloride 98 mmol/L (96-108); Cholesterol 111 mg/dL; Estimated Glomerular Filt Rate 47; Glucose Random 89 mg/dL (60-115); HDL Cholesterol 38 mg/dL; LDL Cholesterol Calculated 57 mg/dl; Potassium 3.8 mmol/L (3.3-5.1); Sodium 139 mmol/L (135-145); Total Protein 7.4 g/dL (6.5-8.0); Triglycerides 80 mg/dL; Uric Acid 4.1 mg/dL (2.4-5.7)
[2021-06-13 13:01] LABS: Free T4 (Free Thyroxine) 1.08 ng/dL (0.71-1.85); Thyroid Stimulating Hormone 2.83 uIU/mL (0.32-4.0); Vitamin D 25-OH Total 78.3 ng/mL (>30)
[2021-06-13 13:36] LABS: Folate 5.1 ng/mL (> or = 4.0); Vitamin B12 1913 pg/mL (200-900)
== END 2021-06-13 10:49 | disposition home or self-care (01) ==
LOC: HO.10HDL 10:48
PROVIDERS: Visit Provider Internal Medicine
DX: I10 Essential (primary) hypertension (principal); E78.00 Pure hypercholesterolemia, unspecified
CPT/HCPCS: 36415; 80053; 80061; 82306; 82607; 82746; 83036; 84439; 84443; 84550; 85025

== ENCOUNTER → 2021-07-22 13:16 | Outpatient (BNVA) | payer MEDICARE, SELFPAY | PROVIDERS: PCP Internal Medicine; Visit Provider Urology | DX: C67.9 Malignant neoplasm of bladder, unspecified (principal); Z87.891 Personal history of nicotine dependence | CPT/HCPCS: Q3014 ==

== ENCOUNTER → 2021-08-15 10:01 | Outpatient (BNVA) | payer MEDICARE, SELFPAY | PROVIDERS: PCP Internal Medicine; Visit Provider Urology | DX: C67.9 Malignant neoplasm of bladder, unspecified (principal) | CPT/HCPCS: 52000; 99212 ==

== ENCOUNTER → 2021-08-19 13:43 | Outpatient (BNVA) | payer MEDICARE, SELFPAY | PROVIDERS: PCP Internal Medicine; Referring Provider Internal Medicine; Visit Provider Internal Medicine Cardiovascular Disease | DX: I89.0 Lymphedema, not elsewhere classified (principal); I10 Essential (primary) hypertension; Z95.0 Presence of cardiac pacemaker | CPT/HCPCS: 93280; 99212 ==

== ENCOUNTER 2021-09-15 09:24 | Day surgery (SDC) | payer MEDICARE, SELFPAY ==
--- NOTE | 2021-09-12 10:02 | HO.ANESPROP2 ---
Documented by User: Sade Albarado NP 09/12/21 10:06 HPI - Anesthesia Eval Consult details Narrative: 86yo F for TUR Bladder Tumor with gemcitabine s/p cysto 01/2021 with MAC pacer in situ (sinus node dysfunction) - 06/2021 interrogation on chart [facility] Active Problems Active Problems: All Active Problems (Updated 09/09/21 @ 14:29 by Fidelia Terry, RN) Vitamin B 12 deficiency (Acute) Impaired fasting blood sugar (Acute) Rosacea (Acute) Left wrist pain (Acute) Tinea corporis (Acute) Screening for diabetes mellitus (Acute) Post-menopausal (Acute) Pacemaker (Acute) Adult general medical exam (Acute) Normally functioning cardiac pacemaker present (Acute) Essential hypertension (Acute) Other and unspecified hyperlipidemia (Acute) Numbness of left hand (Acute) Lymphedema of both lower extremities (Acute) AV block (Acute) Leg edema (Acute) Peripheral vascular disease (Acute) Urinary bladder cancer (Acute) Obesity (Acute) Gout (Acute) GERD (gastroesophageal reflux disease) (Acute) Hypercholesterolemia (Acute) Past Medical History Medical History (Updated 09/09/21 @ 14:29 by Fidelia Terry, RN) Arthritis AV block COVID-19 vaccine administered GERD (gastroesophageal reflux disease) Gout Hypercholesterolemia Leg edema Menieres disease Obesity On beta jake at home MARIELA (obstructive sleep apnea) Pacemaker Peripheral vascular disease Sick sinus syndrome Urinary bladder cancer Vertigo Family History Family History Father Stroke Mother Heart disease Family history of problems with anesthesia: No Surgical History Surgical History (Updated 09/09/21 @ 14:27 by Fidelia Terry RN) History of appendectomy History of cataract surgery History of cholecystectomy History of cystoscopy History of knee replacement History of tonsillectomy Hx of colonoscopy S/P cardiac pacemaker procedure S/P MARION-BSO (total abdominal hysterectomy and bilateral salpingo-oophorectomy) History of Problems with Anesthesia: No Social History Social History Housing: House Alcohol intake: current Alcohol intake frequency: does not drink Patient Tobacco Use Status: Former Tobacco user Tobacco use type: Cigarette e-Cigarette/Vaping Use: Never Used Second Hand Smoke Exposure: No Are you DNR?: No Advance Directives: No Advance Directives Information Provided: Yes Current occupational status: retired Cognitive needs: No Hearing needs: No Vision needs: Yes Meds Allergies Allergy/AdvReac Type Severity Reaction Status Date / Time No Known Allergies Allergy Verified 08/15/21 10:06 [No Known Allergies*] Home Medications Medication Instructions Recorded Confirmed Last Taken Type aspirin 81 mg tablet,delayed 81 mg PO DAILY 03/11/20 09/09/21 09/08/21 History release (Adult Low Dose Aspirin) cholecalciferol (vitamin D3) 25 25 mcg PO DAILY 03/11/20 09/09/21 Unknown History mcg (1,000 unit) capsule coenzyme Q10 100 mg capsule (Co 100 mg PO DAILY 03/11/20 09/09/21 Unknown History Q-10) meclizine 25 mg tablet 25 mg PO DAILY 03/11/20 09/09/21 Unknown History polyethylene glycol 3350 17 gram 17 g PO DAILY 03/11/20 09/09/21 Unknown History oral powder packet (Miralax) Exam Exam Date and Time: September 12, 2021 1002 Pertinent Lab Results Pertinent Lab Results: Laboratory Tests 06/13/21 06/13/21 10:55 10:55 WBC 6.7 Hgb 11.5 L Hct 37.4 Plt Count 409 H Sodium 139 Potassium 3.8 Chloride 98 Carbon Dioxide 32 H BUN 21 H Creatinine 1.10 Narrative Narrative: Cardiac Device Check 08/2021 Details: ?cardiac pacemaker in-situ.? Programmed in MVP mode with rate response at 50 beats per minute.? Atrial pacing 31% of the time.? Ventricular pacing 100% of the time.? Few brief episodes of high atrial rate consistent with atrial fibrillation noted.? One episode of nonsustained VT noted.? Atrial sensing at 1 mV.? Ventricular sensing could not be checked.? Atrial? pacing thresholds are excellent and reprogrammed to enhance battery life.? Ventricular pacing thresholds are adequate and reprogrammed to provide adequate safety.? Pacing lead impedance is stable.? Battery life is at about 3 years EKG 02/2021 AV dual paced rhythm with prolonged AV conduction. Rate 71/min. Echo 03/2021 Conclusions: - 1. Normal LV systolic function with impaired relaxation filling pattern? 2.? Mild mitral regurgitation? 3. [id number] tricuspid regurgitation with normal RV ? ? ? systolic pressure? 4.? No pericardial effusion? Findings Left Ventricle Normal left ventricular size, thickness, and systolic function. The visually estimated ejection fraction is between 60-65%.? There is paradoxical septal motion consistent with a right ventricular pacemaker.? Spectral Doppler is indicative of an impaired relaxation filling pattern.? E/E prime ratio is between 8 and 15 consistent with indeterminate filling pressures. Assessment and Plan Assessment Anesthesia Assessment: Chart Reviewed Final Anesthetic Review Family History of Problems with Anesthesia: No History of Problems with Anesthesia: No Documented by User: Ynes López MD 09/15/21 10:34 [facility] Past Medical History Medical History (Updated 09/09/21 @ 14:29 by Fidelia Terry, RN) Arthritis AV block COVID-19 vaccine administered GERD (gastroesophageal reflux disease) Gout Hypercholesterolemia Leg edema Menieres disease Obesity On beta jake at home MARIELA (obstructive sleep apnea) Pacemaker Peripheral vascular disease Sick sinus syndrome Urinary bladder cancer Vertigo Family History Family History Father Stroke Mother Heart disease Surgical History Surgical History (Updated 09/09/21 @ 14:27 by Fidelia Terry, RN) History of appendectomy History of cataract surgery History of cholecystectomy History of cystoscopy History of knee replacement History of tonsillectomy Hx of colonoscopy S/P cardiac pacemaker procedure S/P MARION-BSO (total abdominal hysterectomy and bilateral salpingo-oophorectomy) Social History Social History Housing: House Alcohol intake: current Alcohol intake frequency: does not drink Patient Tobacco Use Status: Former Tobacco user Tobacco use type: Cigarette e-Cigarette/Vaping Use: Never Used Second Hand Smoke Exposure: No Are you DNR?: No Advance Directives: No Advance Directives Information Provided: Yes Current occupational status: retired Cognitive needs: No Hearing needs: No Vision needs: Yes Meds Allergies Allergy/AdvReac Type Severity Reaction Status Date / Time No Known Allergies Allergy Verified 08/15/21 10:06 [No Known Allergies*] Home Medications Medication Instructions Recorded Confirmed Last Taken Type aspirin 81 mg tablet,delayed 81 mg PO DAILY 03/11/20 09/09/21 09/08/21 History release (Adult Low Dose Aspirin) cholecalciferol (vitamin D3) 25 25 mcg PO DAILY 03/11/20 09/09/21 Unknown History mcg (1,000 unit) capsule coenzyme Q10 100 mg capsule (Co 100 mg PO DAILY 03/11/20 09/09/21 Unknown History Q-10) meclizine 25 mg tablet 25 mg PO DAILY 03/11/20 09/09/21 Unknown History polyethylene glycol 3350 17 gram 17 g PO DAILY 03/11/20 09/09/21 Unknown History oral powder packet (Miralax) Exam Airway Mallampati Class: II TM Dist: >3cm Neck ROM: Full Denture: Upper and Lower Heart: rrr Lungs: cta Assessment and Plan Assessment Anesthesia Assessment: Anesthesia Plan Discussed and Chart Reviewed Final Anesthetic Review NPO: Yes ASA Class: III Final Preanesthetic Review: No Changes in Pt Med Stat, Meds/Allgs Chart Reviewed and Consent Obtained/Reviewed Patient Risk: Intermediate Procedure Risk: Intermediate Anesthetic Plan Anesthetic Plan: GA Disposition: Standard PACU
[2021-09-15] VITALS (12 sets, daily range): BP systolic 112–145; BP diastolic 41–81; PULSE 53–83; RESP 16–17; TEMP 35.7–36.6; O2SAT 93–97; BMI 40.2
[2021-09-15] MEDS: Lactated Ringers 1,000 ML 50 ML IVCONT (10:00)
--- NOTE | 2021-09-15 10:30 | P.HPSUR_ITS ---
Pre-Procedural Eval Section A Date of Service: 09/15/21 The patient is an INPATIENT: No Changes since office visit: No Cold of Flu in the past 2 weeks, No New Medical Problems, No Changes in Medication and No Patient answered all questions The History & Physical has been completed within 30 days and I have reviewed it.: No Section B Chief Complaint: Malignant neoplasm of bladder, unspecified Details of Present Illness: recurrent lesions seen on cystoscopy Relevant Family History (Specify if Yes): No Relevant Social History: None Present Medications: see Short Stay Collaborative assessment Medical History: Significant History History of Previous Operations: Relevant previous surgery/procedure and date(s) Allergies: Allergies Allergy/AdvReac Type Severity Reaction Status Date / Time No Known Allergies Allergy Verified 08/15/21 10:06 [No Known Allergies*] Review of Systems Sugical H&P ROS: Negative: Constitution, Cardiovascular, Respiratory, Shen rological, Psychiatric, Hem-Onc, Allergic/Immunologic, Gastrointestinal, Genitourinary, Musculoskeletal, Integumentary, Endocrine and Eyes/Ears/Nose/Throat Exam Surgical H&P Exam: Normal: HEENT, Normal: Heart, Normal: Lungs, Normal: Extremities, Normal: Abdomen, Normal: Skin and Normal: Neurological Plan Diagnosis/Plan: Unchanged ( TURBT of 3 lesions plus gemcitabine) I have reviewed the history and physical and performed a pertinent physical examination on my patient. No changes have occurred unless specified.
--- NOTE | 2021-09-15 10:30 | PC.NURSE ---
chronic leg edema noted
[2021-09-15] MEDS: levoFLOXacin 500 MG TABLET PO (10:38)
--- NOTE | 2021-09-15 12:02 | W.PM.OPN ---
Operative Note Operative Note Date of Service: 09/15/21 Narrative: PreOperative Diagnosis: bladder cancer Post Operative Diagnosis: bladder cancer Procedure: TURBT and Gemcitabine installation Surgeon: Dr Francisco Dowell Anesthesia: general Indications for procedure: Numerous small and superficial recurrences Procedure: After informed consent was verified the patient was brought to the operating room and placed in a supine position. anesthesia was administered per protocol. the patient was placed in a modified dorsal lithotomy position and prepped and draped in a sterile fashion. Safety pause time-out was performed. Antibiotics were confirmed. A 26 [place]raini continuous flow resectoscope was inserted per urethra. The visual obturator was used in order to minimize potential for urethral damage. Numerous small and superficial recurrences were either resected or fulgerated . Approximately 12 different locations in bladder ranging in size from 5mm to 10 mm At the completion of the procedure the bladder was irrigated. The cystoscope was removed. A [address] Rivera catheter was inserted into the bladder. 10 cc was placed in the balloon. 2 g of gemcitabine in 100 cc of normal saline was instilled into the bladder. the flow from the catheter was left clamped. The inflow to the catheter was attached to a 3 L normal saline bag. The patient Tolerated the procedure well. They were extubated in the operating room and transferred in stable condition to the recovery area. Gemcitabine will remain in the bladder for 1 hour. At the completion of 1 hour the clamp will be removed. The gemcitabine will be allowed to egress to the urine collection bag. The 3 L bag of normal saline will be run at maximum rate through the bladder in order to dilute any residual gemcitabine. The Rivera catheter will then be removed. Pathology: lesions Drains: catheter
== END 2021-09-15 14:49 | disposition home or self-care (01) ==
PROVIDERS: PCP Internal Medicine; Visit Provider Urology
PROC: 0TBB8ZZ Excision of Bladder, Via Natural or Artificial Opening Endoscopic (ICD-10-PCS; CPT 52234; principal; 2021-09-15 11:50)
DX: C67.8 Malignant neoplasm of overlapping sites of bladder (principal); I49.5 Sick sinus syndrome; Z95.0 Presence of cardiac pacemaker; G47.33 Obstructive sleep apnea (adult) (pediatric); I73.9 Peripheral vascular disease, unspecified; M10.9 Gout, unspecified; H81.09 Meniere's disease, unspecified ear; Z79.899 Other long term (current) drug therapy; Z96.653 Presence of artificial knee joint, bilateral; Z90.49 Acquired absence of other specified parts of digestive tract; Z87.891 Personal history of nicotine dependence
CPT/HCPCS: 52234; 51720; 88307; J1100; J2405; J3010; J9201

== ENCOUNTER → 2021-09-24 13:29 | Outpatient (BNVA) | payer MEDICARE, SELFPAY | PROVIDERS: PCP Internal Medicine; Visit Provider Urology | DX: C67.9 Malignant neoplasm of bladder, unspecified (principal) | CPT/HCPCS: 99212 ==

== ENCOUNTER 2021-12-30 15:08 | Outpatient (REF) | payer MEDICARE, SELFPAY ==
[2021-12-30 16:04] LABS: Urine Cytology See Pathology rpt
== END 2021-12-30 15:09 | disposition home or self-care (01) ==
LOC: HO.LAB 15:08
PROVIDERS: Visit Provider Urology
DX: C67.9 Malignant neoplasm of bladder, unspecified (principal)
CPT/HCPCS: 52000; 88112

== ENCOUNTER → 2022-02-19 11:01 | Outpatient (BNVA) | payer MEDICARE, SELFPAY | PROVIDERS: PCP Internal Medicine; Referring Provider Internal Medicine; Visit Provider Internal Medicine Cardiovascular Disease | DX: Z45.018 Encounter for adjustment and management of other part of cardiac pacemaker (principal); I10 Essential (primary) hypertension | CPT/HCPCS: 93280; 99212 ==

== ENCOUNTER 2022-04-15 13:53 | Outpatient (REF) | payer MEDICARE, SELFPAY ==
[2022-04-15 17:48] LABS: Urine Cytology See Pathology rpt
== END 2022-04-15 13:54 | disposition home or self-care (01) ==
LOC: HO.LAB 13:53
PROVIDERS: PCP Internal Medicine; Visit Provider Urology
DX: C67.9 Malignant neoplasm of bladder, unspecified (principal)
CPT/HCPCS: 52000; 88112; 99212; Q3014

== ENCOUNTER 2022-05-12 11:20 | Outpatient (REF) | payer MEDICARE, SELFPAY ==
[2022-05-12 14:17] LABS: Anion Gap 14 (12-20); Blood Urea Nitrogen 17 mg/dL (9-16); Calcium 8.9 mg/dL (8.4-10.2); Carbon Dioxide 32 mmol/L (22-29); Chloride 97 mmol/L (96-108); Estimated Glomerular Filt Rate 50; Glucose Fasting 84 mg/dL (60-99); Potassium 3.5 mmol/L (3.3-5.1); Sodium 139 mmol/L (135-145)
== END 2022-05-12 11:21 | disposition home or self-care (01) ==
LOC: HO.10HDL 11:20
PROVIDERS: Visit Provider Nurse Practitioner Family
DX: R73.01 Impaired fasting glucose (principal)
CPT/HCPCS: 36415; 80048

== ENCOUNTER → 2022-08-07 09:02 | Outpatient (BNVA) | payer MEDICARE, SELFPAY | PROVIDERS: PCP Internal Medicine; Visit Provider Urology | DX: C67.9 Malignant neoplasm of bladder, unspecified (principal) | CPT/HCPCS: 52000 ==

== ENCOUNTER 2022-08-18 14:30 | Outpatient (REF) | payer MEDICARE, SELFPAY ==
[2022-08-18 16:46] LABS: MANUAL DIFF FLAG NO
[2022-08-18 16:48] LABS: Basophils Absolute Auto 0.1 X10*3/uL (0.0-0.2); Basophils Percent Auto 0.7 % (0-2); Eosinophils Absolute Auto 0.4 X10*3/uL (0.0-0.4); Eosinophils Percent Auto 4.1 % (0-4); Hematocrit 39.4 % (37.0-47.0); Hemoglobin 12.5 g/dl (12.0-16.0); Imm Gran Abs Auto 0.03 X10*3/uL (0.00-0.03); Imm Gran Pct Auto 0.3 % (0.0-0.4); Lymphocytes Absolute Auto 2.4 X10*3/uL (1.2-4.9); Lymphocytes Percent Auto 27.9 % (20-40); Mean Corpuscular HGB Conc 31.7 g/dl (31.0-35.0); Mean Corpuscular Hemoglobin 28.2 pg (27.0-33.0); Mean Corpuscular Volume 88.7 fL (80.0-98.0); Monocytes Absolute Auto 0.8 X10*3/uL (0.1-1.2); Monocytes Percent Auto 8.9 % (2-11); Neutrophils Absolute Auto 5.1 x10*3/uL (2.0-8.3); Neutrophils Percent Auto 58.1 % (45-73); Platelet Count 394 X10*3/uL (160-400); Red Blood Count 4.44 X10*6/uL (4.20-5.50); Red Cell Distribution Width 16.7 % (11.0-16.0); White Blood Count 8.7 X10*3/uL (4.8-10.8)
[2022-08-18 17:53] LABS: Alanine Aminotransferase 8 U/L (0-31); Alkaline Phosphatase 115 U/L (39-117); Anion Gap 15 (12-20); Aspartate Amino Transferase 23 U/L (5-31); Blood Urea Nitrogen 24 mg/dL (9-16); Calcium 9.5 mg/dL (8.4-10.2); Carbon Dioxide 32 mmol/L (22-29); Chloride 98 mmol/L (96-108); Cholesterol 136 mg/dL; Estimated Glomerular Filt Rate 35; Glucose Random 99 mg/dL (60-115); HDL Cholesterol 44 mg/dL; LDL Cholesterol Calculated 68 mg/dl; Potassium 4.1 mmol/L (3.3-5.1); Sodium 141 mmol/L (135-145); Total Protein 7.8 g/dL (6.5-8.0); Triglycerides 121 mg/dL; Uric Acid 4.1 mg/dL (2.4-5.7)
[2022-08-18 18:42] LABS: Folate 5.6 ng/mL (> or = 4.0); Free T4 (Free Thyroxine) 1.13 ng/dL (0.71-1.85); Thyroid Stimulating Hormone 2.08 uIU/mL (0.32-4.0); Vitamin B12 > 2000 pg/mL (200-900); Vitamin D 25-OH Total 86.9 ng/mL (>30)
== END 2022-08-18 14:31 | disposition home or self-care (01) ==
LOC: HO.HMGCLDS 14:30
PROVIDERS: PCP Internal Medicine; Visit Provider Internal Medicine
DX: E78.00 Pure hypercholesterolemia, unspecified (principal); E55.9 Vitamin D deficiency, unspecified
CPT/HCPCS: 36415; 80053; 80061; 82306; 82607; 82746; 84439; 84443; 84550; 85025

== ENCOUNTER → 2022-10-05 15:29 | Outpatient (BNVA) | payer MEDICARE, SELFPAY | PROVIDERS: Visit Provider Internal Medicine Cardiovascular Disease | DX: I10 Essential (primary) hypertension (principal); Z45.018 Encounter for adjustment and management of other part of cardiac pacemaker | CPT/HCPCS: 93280; 99212 ==

== ENCOUNTER 2022-10-28 14:26 | Outpatient (AMB) | payer MEDICARE, SELFPAY ==
--- NOTE | 2022-10-28 15:11 | A.OFFVIS_ITS ---
Intake Intake Visit Reasons: 3m/cysto Intake Note: Patient is present for Cystoscopy Urology Med: None Antibiotic Allergy: None Blood Thinner:Aspirin Disposable Cystoscope LOT: [id number] LOT: 08/31/2024 Allergies No Known Allergies [No Known Allergies*] Allergy (Verified 10/28/22 15:13) HPI HPI Comments History of Present Illness Details Gricelda is a pleasant female. She is a patient of Dr. Naik. She seen for the following urologic conditions - bladder cancer high-grade superficial Cystoscopy appears clear today Three month follow-up cysto Three week boost gemcitabine, 3 month follow-up cystoscopy Bladder cancer initial diagnosis February 2019 - last TURBT September 2021 high-grade Bladder cancer diagnosed TURBT December 2019 - high-grade noninvasive Further follow-up was postponed secondary to COVID Bladder procedures - December 2019 TURBT - June 2020 TURBT high-grade noninvasive, January 2021 TURBT high-grade noninvasive, 10/01 TURBT high-grade noninvasive Cystoscopy - 08/02 Adjuvant therapy - June 2020 - induction gemcitabine, February 2021 repeat induction gemcitabine - Boost 01/01 gemcitabine, 05/04 gemcitabine Cytology - 01/01 NAD, 05/04 NAD PFSH Medical History Arthritis AV block Cardiac pacemaker in situ GERD (gastroesophageal reflux disease) Gout Hypercholesterolemia Leg edema Menieres disease Obesity On beta jake at home MARIELA (obstructive sleep apnea) Peripheral vascular disease Screening for diabetes mellitus Sick sinus syndrome Urinary bladder cancer Vertigo Surgical History History of appendectomy History of cataract surgery History of cholecystectomy History of cystoscopy History of knee replacement History of tonsillectomy Hx of colonoscopy S/P cardiac pacemaker procedure S/P MARION-BSO (total abdominal hysterectomy and bilateral salpingo-oophorectomy) Family History Father Stroke Mother Heart disease Social History Housing: House Alcohol intake: current Alcohol intake frequency: does not drink Patient Tobacco Use Status: Former Tobacco user Tobacco use type: Cigarette e-Cigarette/Vaping Use: Never Used Second Hand Smoke Exposure: No Current occupational status: retired Cognitive needs: No Hearing needs: Yes Vision needs: Yes Review of Systems Const Denies chills and Denies fever(s) Card Reports no additional complaints and Denies syncope Resp Denies cough GI Denies abdominal pain and Denies heartburn Reports as per HPI and Denies change in libido Neuro Denies syncope Psych Denies change in libido Endo Denies change in libido Physical Exam Const General: cooperative, healthy appearing, comfortable and no acute distress Orientation/consciousness: patient oriented x3 HEENT Face and sinus: Yes normal facial exam Mouth: moist mucous membranes Neck Neck: Yes normal visual inspection, Yes full ROM and Yes trachea midline Chest Chest palpation & inspection: normal inspection of the chest Resp Effort & Inspection: normal respiratory effort, able to speak in complete sentences and no respiratory distress GI Inspection: Yes normal to inspection Back/Spine/Pelvis Cervical Spine: normal cervical lordosis Thoracic/Lumbar Spine: thoracic and lumbar spine normal to inspection Skin General skin exam: no rashes or lesions noted Neuro General: patient oriented x3, gait normal, tone normal and moves all extremities Extrem General: Yes normal to inspection and Yes capillary refill normal Office Procedures Cystoscopy Consent Discussed risk and benefit or proposed procedure with the patient. Information consent for procedure given to the patient. Discussed technical aspects, risks, benefits and alternatives in full. Addressed all of the patient's questions and concerns regarding the procedure. The patient demonstrated knowledge and understanding. They wish to proceed with this procedure. Preparation The patient was prepped in the usual manner. A per diem was present and in the room. Genitalia was prepped with betadine solution in a sterile manner. Lidocaine Jelly 2% was placed into the urethra and 16Fr flexible Olympus cystoscope was inserted into the meatus after adequate lubrication. Procedure Meatus normal position Urethra normal Bladder examination with retroflexion of cystoscope Bladder Orifices normal shape and position Trigone metaplasia Bladder Capacity medium Trabeculations mild Cellule Formation Yes None Diverticulum Formation - Mucosal Erythema - Bladder Tumor - [id number] Procedure code (CPT) selection complete Office Meds lidocaine HCl Performing Provider: Francisco Dowell MD Administered by: APARNA Mai on 10/28/22 15:45 Dose Route Admin Location Lot Number Expiration Date NDC [employer] Mechan[employer] 10 mL intra-urethral nitrofurantoin monohyd/m-cryst 100 mg Performing Provider: Francisco Dowell MD Administered by: APARNA Mai on 10/28/22 15:45 Dose Route Admin Location Lot Number Expiration Date NDC [employer] Mechanic 100 mg PO Results AMB Urinalysis, Automated UA Leukoctes 125 Stephanie/uL Last Edit by Alvina Almonte A on 10/28/22 15:46 UA Nitrite Negative Last Edit by Alvina Almonte A on 10/28/22 15:46 UA Urobilinogen 0.2 mg/dL Last Edit by Alvina Almonte A on 10/28/22 15:4 6 UA Protein 30 mg/dL Last Edit by Alvina Almonte A on 10/28/22 15:46 UA pH 5.5 Last Edit by Alvina Almonte [facility] on 10/28/22 15:46 UA Blood 0 Dc/uL Last Edit by Alvina Almonte A on 10/28/22 15:46 UA Specific [place] 1.025 Last Edit by Alvina Almonte [facility] on 10/28/22 15: 46 UA Ketone Negative Last Edit by Alvina Almonte A on 10/28/22 15:46 UA Bilirubin 1 mg/dL Last Edit by Alvina Almonte A on 10/28/22 15:46 UA Glucose 0 mg/dL Last Edit by Alvina Almonte [facility] on 10/28/22 15:46 Results Reviewed Results Reviewed: Laboratory Last Values Urine pH (Auto) 5.5 10/28/22 15:14 Specific [place] (Auto) 1.025 10/28/22 15:14 Urine Protein (Auto) 30 mg/dL 10/28/22 15:14 Glucose (UA)(Auto) 0 mg/dL 10/28/22 15:14 Urine Ketones (Auto) Negative 10/28/22 15:14 Urine Blood (Auto) 0 Dc/uL 10/28/22 15:14 Urine Nitrite (Auto) Negative 10/28/22 15:14 Urine Bilirubin (Auto) 1 mg/dL 10/28/22 15:14 Urine Urobilinogen (Auto) 0.2 mg/dL 10/28/22 15:14 Leukocyte Esterase (Auto) 125 Stephanie/uL 10/28/22 15:14 Assessment & Plan Assessment & Plan (1) Urinary bladder cancer: Comment: TURBT superficial high-grade Dr. Meza TURBT Dr. 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, 06/30 HG Superficial September 2021 TURBT and gemcitabine installation Code(s): C67.9 - Malignant neoplasm of bladder, unspecified Qualifiers: Bladder location: unspecified site Qualified Code(s): C67.9 - Malignant neoplasm of bladder, unspecified Plan No cancer seen Three week follow-up gemcitabine installation Orders: Orders Urine Cytology Today C67.9 - Malignant neoplasm of bladder, unspecified AMB Cystoscopy Today C67.9 - Malignant neoplasm of bladder, unspecified AMB Urinalysis Automated Today Z13.9 - Encounter for screening, unspecified Patient Instructions: Imaging studies, laboratory and physical exam results were discussed and reviewed in detail. No major barriers to patient understanding were identified. An opportunity to ask questions regarding the treatment plan was provided. All questions were answered. The patient expressed understanding and agreement with the above treatment plan. The patient is aware they should contact our office by phone for worsening of their current condition or the appearance of new urologic symptoms. Compliance is encouraged with any medications and followup testing that is ordered. It is a privilege to participate in the urologic care of your patient. If you have any questions or concerns regarding treatment for the above conditions, or other urologic issues, please do not hesitate to contact me. The office telephone contact is [phone]. This note is constructed using voice recognition software. While every effort has been made to ensure accuracy residential framing carpenter errors may have been included. Yours sincerely, Dr Francisco Dowell MD, [facility] - Urology Providers of Expert, Compassionate Care for the Genitourinary System Coding Level of Care Code Est Pt Level 3 (02370) Diagnoses Urinary bladder cancer C67.9 Bladder location: unspecified site CPT Codes Cystoscopy - CPT: 35857-[id number] ([id number])
== END 2022-10-28 16:22 | disposition home or self-care (01) ==
PROVIDERS: Visit Provider Urology
DX: C67.0 Malignant neoplasm of trigone of bladder (principal)
CPT/HCPCS: 52000

== ENCOUNTER 2022-10-28 14:26 | Outpatient (REF) | payer MEDICARE, SELFPAY ==
[2022-10-28 16:56] LABS: Urine Cytology See Pathology rpt
== END 2022-10-28 14:27 | disposition home or self-care (01) ==
LOC: HO.LAB 14:26
PROVIDERS: Visit Provider Urology
DX: C67.9 Malignant neoplasm of bladder, unspecified (principal)
CPT/HCPCS: 52000; 88112

== ENCOUNTER 2022-11-03 14:39 | Outpatient (AMB) | payer MEDICARE, SELFPAY ==
[2022-11-03 14:48] VITALS: BP 130/78; PULSE 72; O2SAT 96; BMI 34.2
--- NOTE | 2022-11-03 14:48 | A.OFFPC_ITS ---
Vital Signs 11/03/22 14:48 Height 5 ft 1 in Weight 181 lb BMI 34.2 BP 130/78 Blood Pressure Location Lt brachial Position Sitting Pulse 72 Pulse Source Pulse Oximeter Pulse Oximetry (%) 96 Oxygen Delivery Method Room Air Intake Visit Reasons: Leg swelling, hypertension, esophageal dysmotility Allergies No Known Allergies [No Known Allergies*] Allergy (Verified 11/03/22 14:49) Tobacco use date assessed: 09/21/22 Fall risk assessment: No Falls in past year Last assessed Fall Risk: 11/03/22 Dental Screening Dental Screen Date: 11/03/22 Did you have a dental visit in the last 12 months?: No Did you have a dental problem in the last 6 months where you did not have access to dental care?: No Was dental information given to patient?: No HPI Leg swelling, hypertension, esophageal dysmotility HPI Details 87-year-old obese female with lymphedema of bilateral lower extremity hypertension, esophageal dysmotility , bladder cancer and renal insufficiency last seen in September 2022. Patient was referred to Gastroenterology and placed on hydrochlorothiazide. Patient is here for follow-up. Patient has been follow-up with Urology bladder cancer diagnosis 2019 patient had a cystoscopy October 2022 no cancer seen gemcitabine instillation patient follows up with Cardiology also pacemaker hypertension currently doing good goal of 130/84. Patient has been complain of lower extremity swelling and was on amlodipine before this was discontinued and placed back on the hydrochlorothiazide [facility] Medical History Arthritis AV block Cardiac pacemaker in situ GERD (gastroesophageal reflux disease) Gout Hypercholesterolemia Leg edema Menieres disease Obesity On beta jake at home MARIELA (obstructive sleep apnea) Peripheral vascular disease Screening for diabetes mellitus Sick sinus syndrome Urinary bladder cancer Vertigo Surgical History History of appendectomy History of cataract surgery History of cholecystectomy History of cystoscopy History of knee replacement History of tonsillectomy Hx of colonoscopy S/P cardiac pacemaker procedure S/P MARION-BSO (total abdominal hysterectomy and bilateral salpingo-oophorectomy) Family History (Updated 11/03/22 @ 14:51 by Keyla Palacios CMA) Father Stroke Mother Heart disease Social History (Reviewed 10/28/22 @ 15:13 by FORD Mai Housing: House Alcohol intake: current Alcohol intake frequency: does not drink Patient Tobacco Use Status: Former Tobacco user Tobacco use type: Cigarette e-Cigarette/Vaping Use: Never Used Second Hand Smoke Exposure: No Current occupational status: retired Cognitive needs: No Hearing needs: Yes Vision needs: Yes Questionnaire PHQ-9 Over the last 2 weeks, how often have you been bothered by any of the following problems? 1. Little interest or pleasure in doing things: not at all 2. Feeling down, depressed, or hopeless: not at all 3. Trouble falling or staying asleep, or sleeping too much: not at all 4. Feeling tired or having little energy: not at all 5. Poor appetite or overeating: not at all 6. Feeling bad about yourself - or that you are a failure or have let yourself or your family down: not at all 7. Trouble concentrating on things, such as reading the newspaper or watching television: not at all 8. Moving or speaking so slowly that other people could have noticed. Or the opposite - being so fidgety or restless that you have been moving around a lot more than usual: not at all 9. Thoughts that you would be better off or of hurting yourself in some way: not at all Total score: 0 Depression Screening Interpretation: Negative Source: Developed by Drs. Wilver Hightower, Thomas Valadez and colleagues, with an educational mike from [employer]. Thrive Questionnaire Date Thrive assessed: 05/20/22 AUDIT C Alcohol Use Questionnaire (AUDIT-C) 1. How often do you have a drink containing alcohol?: Never 3. How often do you have six or more drinks on one occasion?: Never Total Score: 0 DESI-7 AMB Questionnaire DESI-7 Date DESI - 7 assessed: 05/20/22 Source: Developed by Drs. Wilver Hightower, Thomas Valadez and colleagues, with an educational mike from [employer]. Physical exam (Primary Care) Vital Signs: Last Vital Signs Pulse 72 11/03/22 14:48 BP 130/78 11/03/22 14:48 Pulse Ox 96 11/03/22 14:48 Oxygen Delivery Method Room Air 11/03/22 14:48 BMI result Body Mass Index 34.2 Tobacco/Smoking Status: Tobacco use Status Tobacco use date assessed 09/21/22 11/03/22 14:55 Patient Tobacco Use Status Former Tobacco user 11/03/22 14:55 Tobacco use type Cigarette 11/03/22 14:55 e-Cigarette/Vaping Use Never Used 11/03/22 14:55 PHQ-9: PHQ-9 Score PHQ-9: Total score 0 11/03/22 14:55 Depression Screening Interpretation: Negative Thrive Assessment: Date of Thrive Assessment Date Thrive assessed 05/20/22 11/03/22 14:55 Const General: alert; No acute distress Eyes Conjunctivae: conjunctivae normal Resp Auscultation: clear to auscultation bilaterally Cardio Rate: regular rate Rhythm: regular rhythm GI Inspection: Yes normal to inspection Extrem General: Yes normal to inspection and No edema Assessment and Plan Assessment & Plan (1) Essential hypertension: Code(s): I10 - Essential (primary) hypertension Plan: Continue with blood pressure medication. Decrease salt intake and exercise patient on hydrochlorothiazide 25 mg once a day metoprolol 50 mg once a day (2) Urinary bladder cancer: Comment: TURBT superficial high-grade Dr. Meza TURBT Dr. 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, 06/30 HG Superficial September 2021 TURBT and gemcitabine installation Code(s): C67.9 - Malignant neoplasm of bladder, unspecified Qualifiers: Bladder location: unspecified site Qualified Code(s): C67.9 - Malignant neoplasm of bladder, unspecified Plan: Patient follows up with urology (3) Obesity: Code(s): E66.9 - Obesity, unspecified Qualifiers: Obesity type: due to excess calories Obesity classification: adult class 3 (BMI >= 40) Serious obesity comorbidity presence: with serious comorbidity Body mass index: BMI 40.0-44.9 Qualified Code(s): E66.01 - Morbid (severe) obesity due to excess calories; Z68.41 - Body mass index [BMI]40.0- 44.9, adult Plan: Diet and exercise (4) GERD (gastroesophageal reflux disease): Code(s): K21.9 - Gastro-esophageal reflux disease without esophagitis Qualifiers: Esophagitis presence: without esophagitis Qualified Code(s): K21.9 - Gastro-esophageal reflux disease without esophagitis Plan: Avoid the foods that causes that usually spicy foods, tomato products, juices, coffee, soda and foods that your sensitive to. After eating do not lie down, allow 3-4 hours before in lie down. And keep the head of bed above 30 degrees to avoid the acid from going up. (5) Hypercholesterolemia: Code(s): E78.00 - Pure hypercholesterolemia, unspecified Plan: Avoid fried foods, chicken skin, eggs, butter margarine, pastries and meat. Be it pork or beef they have a lot of cholesterol LDL goal of less than 100 and triglyceride of less than 150 Orders: Orders Comprehensive Met. Panel Today I10 - Essential (primary) hypertension Complete Blood Count Auto Diff Today I10 - Essential (primary) hypertension Medications: Refilled metoprolol succinate ER 50 mg PO DAILY 90 days 90 tabs 2RF I10 - Essential (primary) hypertension simvastatin 20 mg PO BEDTIME 90 tabs 3RF I10 - Essential (primary) hypertension Coding Level of Care Code Est Pt Level 4 (25042) Diagnoses Essential hypertension I10 Urinary bladder cancer C67.9 Bladder location: unspecified site Obesity E66.01; Z68.41 Obesity type: due to excess calories Obesity classification: adult class 3 (BMI >= 40) Serious obesity comorbidity presence: with serious comorbidity Body mass index: BMI 40.0-44.9 GERD (gastroesophageal reflux disease) K21.9 Esophagitis presence: without esophagitis Hypercholesterolemia E78.00 Additional Codes PHQ-9 - 87984 - PHQ-9 Billing: Y ([id number])
== END 2022-11-03 15:22 | disposition home or self-care (01) ==
PROVIDERS: PCP Internal Medicine; Visit Provider Internal Medicine
DX: I10 Essential (primary) hypertension (principal); C67.9 Malignant neoplasm of bladder, unspecified; E66.01 Morbid (severe) obesity due to excess calories; Z68.41 Body mass index [BMI] 40.0-44.9, adult; K21.9 Gastro-esophageal reflux disease without esophagitis; E78.00 Pure hypercholesterolemia, unspecified
CPT/HCPCS: 99214

== ENCOUNTER 2022-11-19 12:19 | Outpatient (REF) | payer MEDICARE, SELFPAY ==
[2022-11-19 13:04] LABS: MANUAL DIFF FLAG NO
[2022-11-19 14:02] LABS: Basophils Absolute Auto 0.1 X10*3/uL (0.0-0.2); Basophils Percent Auto 1.1 % (0-2); Eosinophils Absolute Auto 0.3 X10*3/uL (0.0-0.4); Hematocrit 41.9 % (37.0-47.0); Hemoglobin 13.2 g/dl (12.0-16.0); Imm Gran Abs Auto 0.03 X10*3/uL (0.00-0.03); Imm Gran Pct Auto 0.4 % (0.0-0.4); Lymphocytes Absolute Auto 2.4 X10*3/uL (1.2-4.9); Lymphocytes Percent Auto 28.4 % (20-40); Mean Corpuscular HGB Conc 31.5 g/dl (31.0-35.0); Mean Corpuscular Hemoglobin 27.7 pg (27.0-33.0); Mean Corpuscular Volume 87.8 fL (80.0-98.0); Mean Platelet Volume 10.3 fL (9.4-12.3); Monocytes Absolute Auto 0.8 X10*3/uL (0.1-1.2); Monocytes Percent Auto 9.2 % (2-11); Neutrophils Absolute Auto 4.9 x10*3/uL (2.0-8.3); Neutrophils Percent Auto 57.9 % (45-73); Platelet Count 411 X10*3/uL (160-400); Red Blood Count 4.77 X10*6/uL (4.20-5.50); Red Cell Distribution Width 15.4 % (11.0-16.0); White Blood Count 8.4 X10*3/uL (4.8-10.8)
[2022-11-19 14:50] LABS: Alanine Aminotransferase 9 U/L (0-31); Albumin Level 3.8 g/dL (3.5-5.0); Alkaline Phosphatase 114 U/L (39-117); Anion Gap 15 (12-20); Aspartate Amino Transferase 27 U/L (5-31); Bilirubin Total 0.8 mg/dL (0.0-1.0); Blood Urea Nitrogen 29 mg/dL (9-16); Calcium 9.9 mg/dL (8.4-10.2); Carbon Dioxide 30 mmol/L (22-29); Chloride 99 mmol/L (96-108); Estimated Glomerular Filt Rate 31; Glucose Random 97 mg/dL (60-115); Potassium 3.5 mmol/L (3.3-5.1); Sodium 140 mmol/L (135-145)
== END 2022-11-19 12:20 | disposition home or self-care (01) ==
LOC: HO.LAB 12:19
PROVIDERS: PCP Internal Medicine; Visit Provider Internal Medicine
DX: I10 Essential (primary) hypertension (principal)
CPT/HCPCS: 36415; 80053; 85025

== ENCOUNTER 2022-12-07 13:53 | Outpatient (AMB) | payer MEDICARE, SELFPAY ==
--- NOTE | 2022-12-07 14:03 | A.OFFVIS_ITS ---
Intake Vital Signs 12/07/22 14:21 Height 5 ft 1 in Weight 178 lb 9.191 oz BMI 33.7 Blood Pressure Location Lt brachial Position Sitting Intake Visit Reasons: Dyskinesa of esophigus Intake Note: Gricelda presents in the office as a new patient for dyskinesa of esophagus. CC: She states that she always has constipation and issues with her swallowing. There are nerves in her esophagus. Allergies No Known Allergies [No Known Allergies*] Allergy (Verified 12/07/22 14:24) HPI HPI Comments History of Present Illness Details This is an 87 y.o F with PMH of bladder ca on gemcitabine and TURBT (Dr Dowell), CHB s/p dual chamber pacemaker, HTN, known esophageal dysmotility who is here to establish care for dysphagia. Hx was obtained from the pt who states that around 2018 she started noticing difficulty swallowing food. Greg solid foods seems to get stuck in upper esophagus. Has frequent regurgi with liquids. Had a barium swallow at [facility] which showed severe dysmotility. However she never actually followed up with the gastroenterology. Has a remote hx of upper endoscopy which was likely done before this issue started. Most of the foods that bother her are broccoli, chicken, bread. Has had weight loss of almost 50 lbs in the past one year but unsure if due to bladder ca as does not have the appetite to eat. Last colonoscopy was almost 11 years ago in [place]. No fam hx of CRC. PFSH Medical History (Updated 12/07/22 @ 15:00 by Emani Clifton MD) Arthritis AV block Cardiac pacemaker in situ GERD (gastroesophageal reflux disease) Gout Hypercholesterolemia Leg edema Menieres disease Obesity On beta jake at home MARIELA (obstructive sleep apnea) Peripheral vascular disease Screening for diabetes mellitus Sick sinus syndrome Urinary bladder cancer Vertigo Surgical History (Updated 12/07/22 @ 14:24 by APARNA Christian) History of appendectomy History of cataract surgery History of cholecystectomy History of cystoscopy History of esophagogastroduodenoscopy (EGD) History of knee replacement History of tonsillectomy Hx of colonoscopy S/P cardiac pacemaker procedure S/P MARION-BSO (total abdominal hysterectomy and bilateral salpingo-oophorectomy) Family History Father Stroke Mother Heart disease Social History Housing: House Alcohol intake: current Alcohol intake frequency: does not drink Patient Tobacco Use Status: Former Tobacco user Tobacco use type: Cigarette e-Cigarette/Vaping Use: Never Used Second Hand Smoke Exposure: No Current occupational status: retired Cognitive needs: No Hearing needs: Yes Vision needs: Yes Review of Systems Const All systems reviewed & are unremarkable except as noted in HPI and below Physical Exam Vital Signs: BMI result Body Mass Index 33.7 Gen appear: NAD HEENT: nonicteric, no cervical lymphadenopathy Chest: CTA CVS: Regular S1/S2 Abd: soft, nontender, nondistended, bowel sounds + Ext: no peripheral edema Neuro: A/Ox3, noted to move all extremities spontaneously Psych: interacting appropriately Assessment & Plan Assessment & Plan (1) Esophageal dysmotility: Comment: 2018 Code(s): K22.4 - Dyskinesia of esophagus (2) Dysphagia: Code(s): R13.10 - Dysphagia, unspecified (3) Unintentional weight loss: Code(s): R63.4 - Abnormal weight loss Plan Ddx include esophageal dysmotility, oropharyngeal dysphagia, ring/stricture, mediastinal mass etc. Work up ordered. Will likely need an EGD as well with empiric dilation, will await results of imaging below to set it up. Orders: Orders [place] barium swallow modified Today K22.4 - Dyskinesia of esophagus CT chest w IV con Today C67.9 - Malignant neoplasm of bladder, unspecified, R13.10 - Dysphagia, unspecified Coding Level of Care Code New Pt Level 4 (43253) Diagnoses Esophageal dysmotility K22.4 Dysphagia R13.10 Unintentional weight loss R63.4
[2022-12-07 14:21] VITALS: BMI 33.7
== END 2022-12-07 15:12 | disposition home or self-care (01) ==
PROVIDERS: PCP Internal Medicine; Visit Provider Internal Medicine
DX: K22.4 Dyskinesia of esophagus (principal); R13.10 Dysphagia, unspecified; R63.4 Abnormal weight loss
CPT/HCPCS: 99204

== ENCOUNTER → 2022-12-07 13:53 | Outpatient (BNVA) | payer MEDICARE, SELFPAY | PROVIDERS: PCP Internal Medicine; Visit Provider Internal Medicine | DX: K22.4 Dyskinesia of esophagus (principal); R13.10 Dysphagia, unspecified; R63.4 Abnormal weight loss | CPT/HCPCS: 99202 ==

== ENCOUNTER 2023-01-05 11:43 | Outpatient (REF) | payer MEDICARE, SELFPAY ==
[2023-01-05 14:10] LABS: Alanine Aminotransferase 9 U/L (0-31); Albumin Level 3.8 g/dL (3.5-5.0); Alkaline Phosphatase 107 U/L (39-117); Anion Gap 14 (12-20); Aspartate Amino Transferase 27 U/L (5-31); Bilirubin Total 0.7 mg/dL (0.0-1.0); Blood Urea Nitrogen 33 mg/dL (9-16); Carbon Dioxide 31 mmol/L (22-29); Chloride 99 mmol/L (96-108); Estimated Glomerular Filt Rate 30; Glucose Random 86 mg/dL (60-115); Potassium 3.4 mmol/L (3.3-5.1); Sodium 141 mmol/L (135-145); Total Protein 7.4 g/dL (6.5-8.0)
== END 2023-01-05 11:44 | disposition home or self-care (01) ==
LOC: HO.LAB 11:43
PROVIDERS: PCP Internal Medicine; Visit Provider Internal Medicine
DX: N28.9 Disorder of kidney and ureter, unspecified (principal)
CPT/HCPCS: 36415; 80053

== ENCOUNTER 2023-01-08 15:00 | Outpatient (AMB) | payer MEDICARE, SELFPAY ==
[2023-01-08 15:03] VITALS: BP 122/70; PULSE 76; O2SAT 97; BMI 34.2
--- NOTE | 2023-01-08 15:03 | A.OFFVIS_ITS ---
Intake Vital Signs 01/08/23 15:03 Height 5 ft 1 in Weight 181 lb BMI 34.2 BP 122/70 Blood Pressure Location Lt brachial Position Sitting Pulse 76 Pulse Source Pulse Oximeter Temp Source Skin Pulse Oximetry (%) 97 Oxygen Delivery Method Room Air Intake Visit Reasons: SAWV Allergies No Known Allergies [No Known Allergies*] Allergy (Verified 01/08/23 15:20) Medication List - Last Reconciled 01/08/23 by CHRISTOPHER West allopurinol 300 mg PO DAILY amlodipine 5 mg PO DAILY aspirin (Adult Low Dose Aspirin) 81 mg PO DAILY cholecalciferol (vitamin D3) 25 mcg PO DAILY coenzyme Q10 (Co Q-10) 100 mg PO DAILY cyanocobalamin (vitamin B-12) 1,000 mcg PO DAILY gabapentin 300 mg PO DAILY meclizine 25 mg PO DAILY metoprolol succinate ER 50 mg PO DAILY 90 days metronidazole 0.75% (MetroCream) 1 appl topical BID 30 days nystatin 1 appl topical QID 90 days omeprazole 20 mg PO DAILY polyethylene glycol 3350 (Miralax) 17 grams PO DAILY simvastatin 20 mg PO BEDTIME HPI SAWV HPI Details Patient is an 87-year-old female who presents today for subsequent wellness visit. Patient of Dr. Naik. Today we discussed patient's need for mammogram and tetanus vaccine. Patient reports history of pneumonia vaccine after age 66. Patient did have bone density screen 05/2021 which showed osteopenia. [place] of care was reviewed with the patient and she was provided with a screening schedule. Patient has a healthcare proxy on file and she was provided with a MOLST form. [facility] Medical History Cardiac pacemaker in situ AV block Leg edema Screening for diabetes mellitus On beta jake at home Arthritis Vertigo MARIELA (obstructive sleep apnea) Sick sinus syndrome Peripheral vascular disease Menieres disease Urinary bladder cancer Obesity Gout GERD (gastroesophageal reflux disease) Hypercholesterolemia Surgical History History of esophagogastroduodenoscopy (EGD) S/P cardiac pacemaker procedure Hx of colonoscopy History of cystoscopy S/P MARION-BSO (total abdominal hysterectomy and bilateral salpingo-oophorectomy) History of cataract surgery History of knee replacement History of tonsillectomy History of appendectomy History of cholecystectomy Family History Father Stroke Mother Heart disease Social History Housing: House Alcohol intake: current Alcohol intake frequency: does not drink Patient Tobacco Use Status: Former Tobacco user Tobacco use type: Cigarette e-Cigarette/Vaping Use: Never Used Second Hand Smoke Exposure: No Current occupational status: retired Cognitive needs: No Hearing needs: Yes Vision needs: Yes Questionnaire Medicare Wellness Checkup What is your age?: 80 or older What gender do you identify with?: female During the past 4 weeks, how much have you been bothered by emotional problems such as feeling anxious, depressed, irritable, sad or downhearted, and blue?: not at all During the past 4 weeks, has your physical & emotional health limited your social activities with family, friends, neighbors, or groups?: not at all During the past 4 weeks, how much bodily pain have you generally had?: mild pain (legs ) During the past 4 weeks, was someone available to help you if you needed & wanted help?: yes, some During the past 4 weeks, what was the hardest physical activity you could do for at least 2 minutes?: light Can you get to places out of walking distance without help? (For eg., can you travel alone on buses, taxis or drive your car?): Yes Can you go shopping for groceries or clothes without someone's help?: Yes Can you prepare your own meals?: Yes Can you do your housework without help?: Yes Because of any health problems, do you need the help of another person with your personal care needs such as eating, bathing, dressing or getting around the house?: No Can you handle your own money without help?: Yes During the past 4 weeks, how would you rate your health in general?: very good During the past 4 weeks how have things been going for you?: pretty well Are you having difficulties driving your car?: no Do you always fasten your seat belt when you are in a car?: yes, usually During past 4 weeks, have you been bothered by the following: never: Falling or dizzy when standing up, Sexual problems?, Trouble eating well?, Teeth or denture problems?, Problems using the telephone? and Tiredness or fatigue? Have you fallen 2 or more times in the past year?: No Are you afraid of falling?: Yes Are you a smoker?: no During the past 4 weeks, how many drinks of wine, beer, or other alcoholic beverages did you have?: no alcohol at all Do you exercise for about 20 minutes 3 or more times a week?: no, I usually do not exercise this much Have you been given information to help with the following?: no: Hazards in your house that might hurt you? and no: Keeping track of your medications? How often do you have trouble taking medicines the way you have been told to take them?: I always take medicine as prescribed How confident are you that you can control & manage most of your health problems?: very confident What is your race?: White Mini Mental State Exam (MMSE) Orientation What is the (year) (season) (date) (day) (month)?: year, season, date, day and month Score Score: 5 Activity of Daily Living Bathing - sponge bath, tub bath or shower: receives no assistance (gets in/out by self, if usual bathing means Dressing - getting clothes from closets & drawers, including inner/outer garments & fasteners.: gets clothes & gets completely dressed without help Toileting - going to the 'toilet room' for urine/bowel elimination & cleaning self/arranging clothes: goes to toilet room, cleans self, arranges clothes without help Transfer: moves in & out of bed and chair without help (may use support object) Continence: controls urination/bowel movements completely by self Feeding: feeds self without help Total Score: 0 Information obtained from: patient Using telephone: independent Traveling: independent Shopping: independent Preparing meals: independent Housework: independent Taking medicine: independent Managing money: independent PHQ-9 Over the last 2 weeks, how often have you been bothered by any of the following problems? 1. Little interest or pleasure in doing things: not at all 2. Feeling down, depressed, or hopeless: not at all 3. Trouble falling or staying asleep, or sleeping too much: not at all 4. Feeling tired or having little energy: not at all 5. Poor appetite or overeating: not at all 6. Feeling bad about yourself - or that you are a failure or have let yourself or your family down: not at all 7. Trouble concentrating on things, such as reading the newspaper or watching te levision: not at all 8. Moving or speaking so slowly that other people could have noticed. Or the opposite - being so fidgety or restless that you have been moving around a lot more than usual: not at all 9. Thoughts that you would be better off or of hurting yourself in some way: not at all Total score: 0 Depression Screening Interpretation: Negative [id number] - PHQ-9 Billing: Yes Source: Developed by Drs. Wilver Hightower, Tanya Bardales, Thomas Perry and colleagues, with an educational mike from [employer]. Physical Exam Vital Signs: Last Vital Signs Pulse 76 01/08/23 15:03 BP 122/70 01/08/23 15:03 Pulse Ox 97 01/08/23 15:03 Oxygen Delivery Method Room Air 01/08/23 15:03 BMI result Body Mass Index 34.2 Const General: cooperative and no acute distress Orientation/consciousness: patient oriented x3 HEENT Other: Whisper test: pass Neuro Other: Balance: Normal - patient ambulates with a cane Get up and walk: unable to Romberg: negative Tandem gait: unable to General: patient oriented x3 Immunizations tetanus-diphtheria toxoids-Td 2 Lf unit-2 Lf unit/0.5 mL IM suspension Performing Provider: CHRISTOPHER West [facility] Administered by: APARNA Jones on 01/08/23 15:38 Dose Route Admin Location Dispensed Lot Number Expiration Date [facility] [employer] Maintenance 0.5 mL IM Left Deltoid 0.5 mL [id number] 08/16/23 [address]-6 [employer] VIS Given Date VIS Provided VIS Publication Date 01/08/23 Single Vaccine 20 Eligibility Eligibility Date Funding Source Not VFC Eligible 01/08/23 State funds Assessment & Plan Assessment & Plan (1) Adult general medical exam: Code(s): Z00.00 - Encounter for general adult medical examination without abnormal findings (2) Impaired fasting blood sugar: Code(s): R73.01 - Impaired fasting glucose Plan: Random glucose 86 12/2022 (3) Pacemaker: Code(s): Z95.0 - Presence of cardiac pacemaker Plan: Continue to follow-up with cardiology Dr. Solis (4) Urinary bladder cancer: Comment: TURBT superficial high-grade Dr. Meza TURBT Dr. 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 Dowell. (5) Obesity: Code(s): E66.9 - Obesity, unspecified Qualifiers: Body mass index: BMI 40.0-44.9 Obesity classification: adult class 3 (BMI >= 40) Obesity type: due to excess calories Serious obesity comorbidity presence: with serious comorbidity Qualified Code(s): E66.01 - Morbid (severe) obesity due to excess calories; Z68.41 - Body mass index [BMI]40.0-44.9, adult Plan: Encouraged healthy food choices and exercise as tolerated. (6) Gout: Code(s): M10.9 - Gout, unspecified Qualifiers: Chronicity: chronic Gout etiology: unspecified cause Gout site: unspecified site Presence of tophus: without tophus Qualified Code(s): M1A.9XX0 - Chronic gout, unspecified, without tophus (tophi) Plan: Stable. Continue current treatment. (7) Hypertension: Code(s): I10 - Essential (primary) hypertension Qualifiers: Hypertension type: essential hypertension Qualified Code(s): I10 - Essential (primary) hypertension Plan: Continue current treatment. Reinforced low-sodium diet. (8) GERD (gastroesophageal reflux disease): Code(s): K21.9 - Gastro-esophageal reflux disease without esophagitis Qualifiers: Esophagitis presence: without esophagitis Qualified Code(s): K21.9 - Gastro-esophageal reflux disease without esophagitis Plan: Continue current treatment. Encouraged to avoid GERD trigger foods. (9) Hypercholesterolemia: Code(s): E78.00 - Pure hypercholesterolemia, unspecified Plan: Continue current treatment. Encouraged low-cholesterol diet. (10) Esophageal dysmotility: Comment: 2017 Code(s): K22.4 - Dyskinesia of esophagus Plan: Continue to follow-up with GI Dr. Clifton (11) Screening for breast cancer: Code(s): Z12.39 - Encounter for other screening for malignant neoplasm of breast Orders: Orders Td State Immunization Today Z23 - Encounter for immunization MM tomosynthesis screening BI Today Z12.31 - Encounter for screening mammogram for malignant neoplasm of breast Quality Reporting (2019) Depression/Bipolar (159/160/161/177) PHQ-9: Total score: 0 Coding Level of Care Code Medicare Subsequent (G0439) Diagnoses Adult general medical exam Z00.00 Impaired fasting blood sugar R73.01 Pacemaker Z95.0 Malignant neoplasm of urinary bladder, unspecified site C67.9 Bladder location: unspecified site Class 3 severe obesity due to excess calories with serious comorbidity and body mass index (BMI) of 40.0 to 44.9 in adult E66.01; Z68.41 Body mass index: BMI 40.0-44.9 Obesity classification: adult class 3 (BMI >= 40) Obesity type: due to excess calories Serious obesity comorbidity presence: with serious comorbidity Chronic gout without tophus, unspecified cause, unspecified site M1A.9XX0 Chronicity: chronic Gout etiology: unspecified cause Gout site: unspecified site Presence of tophus: without tophus Essential hypertension I10 Hypertension type: essential hypertension Gastroesophageal reflux disease without esophagitis K21.9 Esophagitis presence: without esophagitis Hypercholesterolemia E78.00 Esophageal dysmotility K22.4 Screening for breast cancer Z12.39 CPT Codes Advance Care Planning - Advance Care Planning discussion: On file, no changes ([id number]) Advance Care Planning - Time spent: 1-15 minutes, on File ([id number]) Advance Care Planning Advance Care Planning discussion: On file, no changes Date of discussion: 01/08/23 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
== END 2023-01-08 15:41 | disposition home or self-care (01) ==
PROVIDERS: Visit Provider Nurse Practitioner Family
DX: Z23 Encounter for immunization (principal)
CPT/HCPCS: 1123F; 90471; 90714; G0439

== ENCOUNTER 2023-01-19 16:01 | Outpatient (REF) | payer MEDICARE, SELFPAY | END 2023-01-19 16:02 | disposition home or self-care (01) | LOC: HO.MAMMO 16:01 | PROVIDERS: PCP Internal Medicine; Visit Provider Nurse Practitioner Family | DX: Z12.31 Encounter for screening mammogram for malignant neoplasm of breast (principal) | CPT/HCPCS: 77063; 77067 ==

== ENCOUNTER → 2023-01-19 16:15 | Outpatient (BNV) | payer MEDICARE, SELFPAY | PROVIDERS: PCP Internal Medicine; Visit Provider Radiology Diagnostic Radiology | DX: Z12.31 Encounter for screening mammogram for malignant neoplasm of breast (principal) | CPT/HCPCS: 77063; 77067 ==

== ENCOUNTER 2023-02-01 11:09 | Outpatient (REF) | payer MEDICARE, SELFPAY ==
--- NOTE | ~2023-02-01 | US_ITS ---
EXAMINATION: MM DIAGNOSTIC DIGITAL BREAST TOMOSYNTHESIS, LEFT US BREAST LIMITED, LEFT MAMMOGRAPHY: CLINICAL INFORMATION: Patient presents for further evaluation of a focal asymmetry of the upper outer quadrant of the left breast noted on screening mammography from 01/19/2023. COMPARISON: Mammography: This study is compared with prior mammograms dating back to 2017. TECHNIQUE: Digital breast tomosynthesis is performed in both the craniocaudal and mediolateral oblique views along with computer-aided detection (CAD). Synthesized 2D images are generated from the tomosynthesis. A full lateral view of the left breast and CC and MLO spot-. FINDINGS: The breasts are almost entirely fatty (ACR BI-RADS breast composition Category a). There is an irregular focal asymmetry in the upper outer quadrant of the left breast which warrants further evaluation with ultrasound. This was performed on the same day as these mammographic images. ULTRASOUND: CLINICAL INFORMATION: Patient called back from screening mammography for focal asymmetry of the upper outer quadrant of the left breast. COMPARISON: The ultrasound is correlated with the mammogram from today. TECHNIQUE: Targeted sonographic evaluation of the upper outer quadrant of the left breast was performed using a high frequency linear transducer. Selected archived documentation. FINDINGS: LEFT BREAST: Targeted sonography of the upper outer quadrant of the left breast was performed. There is a 14 mm x 11 mm x 9 mm irregular hypoechoic mass in the 2:00 region of the left breast 7 cm from the nipple. This is highly suggestive of malignancy and biopsy is indicated. There is no left axillary adenopathy. US/US breast LT limited mamm only IMPRESSION: Suspicious 14 mm mammographic and sonographic mass in the 2:00 region, 7 cm from the nipple. Ultrasound-guided biopsy is advised. No left axillary adenopathy. OVERALL ASSESSMENT: Mammography: BI-RADS 5 - Highly suggestive of malignancy Ultrasound: BI-RADS 5 - Highly suggestive of malignancy RECOMMENDATION: Biopsy recommended Results were provided to the patient at time of visit by the technologist. This patient's information was entered into a reminder system with a target due date for their next mammogram.
== END 2023-02-01 11:10 | disposition home or self-care (01) ==
LOC: HO.MAMMO 11:09
PROVIDERS: PCP Internal Medicine; Visit Provider Nurse Practitioner Family
DX: N64.89 Other specified disorders of breast (principal)
CPT/HCPCS: 76642; 77061; 77065

== ENCOUNTER → 2023-02-01 11:30 | Outpatient (BNV) | payer MEDICARE, SELFPAY | PROVIDERS: PCP Internal Medicine; Visit Provider Radiology Diagnostic Radiology | DX: N63.21 Unspecified lump in the left breast, upper outer quadrant (principal) | CPT/HCPCS: 76642; 77061; 77065; G0279 ==

== ENCOUNTER 2023-02-02 08:13 | Outpatient (REF) | payer MEDICARE, SELFPAY ==
--- NOTE | ~2023-02-02 | CT_ITS ---
EXAMINATION: CT CHEST WITHOUT CONTRAST CLINICAL INFORMATION: Dysphasia COMPARISON: None available. TECHNIQUE: Multidetector volumetric CT imaging of the chest was done. Axial MIP volume rendering provided. Sagittal and coronal reformatted images were obtained. This CT examination was performed using dose optimization techniques as appropriate, variously including the following: *Automated exposure control *Adjustment of mA and/or kV according to patient size (this includes techniques or standardized protocols for targeted exams where dose is matched to indication/reason for exam; i.e. 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 LUNGS: There are no lung nodules. There is linear atelectasis or scarring in the right lower lobe parallel to the major fissure. Central airways are patent. MEDIASTINUM: Thyroid gland is nodular within nodularity more prominent in the right thyroid lobe, correlate with thyroid gland ultrasound. There is no mediastinal or hilar lymphadenopathy. Thoracic aorta and pulmonary arteries are not dilated. CORONARY ARTERY CALCIFICATION: Coronary artery calcifications present. PLEURA: There is trace of pleural effusion on the left. Follow-up pleural thickening AXILLA: No lymphadenopathy. UPPER ABDOMEN: Gallbladder is surgically absent. Calcifications seen in the spleen. OSSEOUS STRUCTURES: There are degenerative spondylosis changes in thoracic spine CT/CT chest wo IV con IMPRESSION: 1. No explanation for patient's symptoms. 2. Most likely thyroid goiter correlate with ultrasound. 3. Coronary artery calcifications. 4. Scarring in the right lower lobe and trace pleural effusion on the left. Fleischner guidelines were followed.
== END 2023-02-02 08:14 | disposition home or self-care (01) ==
LOC: HO.CT 08:13
PROVIDERS: PCP Internal Medicine; Visit Provider Internal Medicine
DX: R13.10 Dysphagia, unspecified (principal); C67.9 Malignant neoplasm of bladder, unspecified
CPT/HCPCS: 71250

== ENCOUNTER 2023-02-03 15:00 | Outpatient (REF) | payer MEDICARE, SELFPAY ==
--- NOTE | ~2023-02-03 | FL_ITS ---
EXAMINATION: FL BARIUM SWALLOW CLINICAL INFORMATION: Dyskinesis of the esophagus. COMPARISON: None available. TECHNIQUE: Modified barium swallow with speech pathology. FINDINGS: Patient swallowed multiple consistencies from thin liquid to barium-coated cookie. There is noted to be laryngeal penetration without tracheal aspiration with all consistencies. No cough reflex was elicited. With the barium-coated cookie there is a large amount of residua within the oropharynx and vallecula which cleared with drinking thin liquid. Limited evaluation of the thoracic esophagus did not demonstrate an obvious abnormality. FLUOROSCOPY TIME: 2 minutes and 29 seconds. DOSE AREA PRODUCT: 191.2 dGy-cm2. FL/FL barium swallow modified IMPRESSION: Modified barium swallow demonstrating laryngeal penetration without tracheal aspiration. Please refer to speech pathology report for details.
--- NOTE | 2023-02-05 16:38 | MHC.SL.IMP ---
Date of Plan of Treatment: 02/03/23 Onset of Symptoms/Illness: 02/03/18 Date Treatment Started: 02/03/23 Admitting Diagnosis: Dysphagia Primary Speech & Language Diagnosis: R13.12 Oropharyngeal Phase Dysphagia Reason for Today's Visit: 85574 Modified Barium Swallow Study Pre-evaluation Dietary Consistencies: Regular Pre-evaluation Liquid Consistency: Thin Pre-evaluation Medication Administration: Whole with Liquid Medical History: Modified Barium Swallow Study Fluoroscopic Evaluation of Swallowing Function CPT Code 86025 Evaluation Year: 2022 Reason for Study: Pt reporting difficulty swallowing. Referring Physician: Emani Clifton MD Evaluating Clinician: Cara Lo MA, CCC-SR. PAYROLL PROCESSOR Study Number: 1 Patient Name: Gricelda Fischer Status: Outpatient, Ambulatory/Assisted Age: 87 Gender: Female Medical History Medical History (Updated 12/07/22 @ 15:00 by Emani Clifton MD) Arthritis AV block Cardiac pacemaker in situ GERD (gastroesophageal reflux disease) Gout Hypercholesterolemia Leg edema Menieres disease Obesity On beta jake at home MARIELA (obstructive sleep apnea) Peripheral vascular disease Screening for diabetes mellitus Sick sinus syndrome Urinary bladder cancer Vertigo Surgical History (Updated 12/07/22 @ 14:24 by APARNA Christian) History of appendectomy History of cataract surgery History of cholecystectomy History of cystoscopy History of esophagogastroduodenoscopy (EGD) History of knee replacement History of tonsillectomy Hx of colonoscopy S/P cardiac pacemaker procedure S/P MARION-BSO (total abdominal hysterectomy and bilateral salpingo-oophorectomy) Current (pre-evaluation) Intake/Diet: Route: PO Diet Grade: Regular Liquid Consistencies: Thin Pre-Study Functional Oral Intake Scale (FOIS): 7- Total oral intake with no restrictions Pain: None reported at time of study SUBJECTIVE: Pt is an 87 year old female with history of AV block, cardiac pacemaker, GERD, Meniere?s disease, MARIELA, peripheral vascular disease, and bladder cancer. She is referred for a modified barium swallow study by Dr. Emani Clifton from Gastroenterology. She was seen at the [facility] office for dyskinesia. Pt has known history of esophageal dysmotility, with ? nerves in her esophagus,? per Dr. Clifton. She also complained of issues with her swallowing. Pt reported that in 2018, she started noticing having difficulty especially with solid foods. She reported that foods seem to get stuck in her upper esophagus, with frequent regurgitation as well. Pt reportedly had a barium swallow x-ray done at [facility] which showed severe dysmotility. However, pt had never previously followed up with [facility]. Pt reports the foods that bother her are broccoli, chicken, and bread. She endorses a 50lb weight loss in the past year. She is not sure if this is due to her bladder cancer as she does not have an appetite to eat. Food and Liquid Trials: Oral Impairment: Lip Closure: Did not test Oral Impairment: Tongue Control During Bolus Hold: Did not test Oral Impairment: Bolus Preparation/Mastication: 2=Disorganized chewing/mashing with solid pieces of bolus Oral Impairment: Bolus Transport/Lingual Motion: 2=Slowed tongue motion Oral Impairment: Oral Residue: 3=Majority of bolus remaining Oral Impairment:Initiation of Pharyngeal Swallow: 3=Bolus head in pyriforms Pharyngeal Impairment: Soft Palate Elevation: 0=No bolus between soft palate (SP)/pharyngeal wall (PW) Pharyngeal Impairment: Laryngeal Elevation: 1=Partial thyroid cartilage/arytenoids to epiglottic petiole movement Pharyngeal Impairment: Anterior Hyoid Excursion: 1=Partial anterior movement Pharyngeal Impairment: Epiglottic Movement: 1=Partial inversion Pharyngeal Impairment: Laryngeal Vestibular Closure:: 1=Incomplete: narrow column air/contrast in laryngeal vestibule Pharyngeal Impairment: Pharyngeal Stripping Wave: 1=Present: diminished Pharyngeal Impairment: Pharyngeal Contraction: Did not test Pharyngeal Impairment: Pharyngoesophageal Segment Openin=Partial distention/partial duration: partial obstruction of flow Pharyngeal Impairment: Tongue Base (TB) Retraction: 1=Trace column of contrast/air between TB and posterior PW Pharyngeal Impairment: Pharyngeal Residue: 3=Majority of contrast within or on pharyngeal structures Pharyngeal Impairment: Esophageal Clearance Upright Position: Did not test Impressions and Recommendations Clinical Observations: OBJECTIVE: Time-out: performed at 15:30 Evaluation Start: 15:00; Stop: 15:05 Patient Positioning: Standing Viewing Planes: LATERAL ONLY Contrast: MBSImP? Standardized Protocol using commercially prepared, standardized Barium viscosities, including: Varibar? THIN LIQUID (40% w/v, <15 cps) , 1/2 Shortbread Cookie (1 x1 x.25 ) MBSImP ID: [id number] MBSImP Results: Lip closure for intraoral bolus containment could not be assessed due to logistical reasons not related to physiologic impairment. Tongue control during bolus hold could not be assessed due to logistical reasons not related to physiologic impairment. Bolus preparation and mastication demonstrated disorganized chewing/mashing with solid pieces of the bolus unchewed. Bolus transport/lingual motion was with slowed tongue motion. Oral residue was the majority of the bolus. Initiation of the pharyngeal swallow occurred when the bolus head was in the pyriform sinuses. Soft palate elevation resulted in no bolus between the soft palate and the pharyngeal wall. Laryngeal elevation was decreased, with partial superior movement of the thyroid cartilage/partial approximation of the arytenoids to the epiglottic petiole. Anterior hyoid excursion demonstrated partial anterior movement. Epiglottic movement resulted in partial inversion. Laryngeal vestibular closure was incomplete, with a narrow column of air/contrast noted within the laryngeal vestibule at the height of the swallow. Pharyngeal stripping wave was present, but diminished. Pharyngeal contraction could not be determined due to logistical reasons not related to physiologic impairment. Pharyngoesophageal segment opening demonstrated partial distension/partial duration, with partial obstruction of bolus flow. Tongue base retraction allowed a trace column of contrast or air between the retracted tongue base and the posterior pharyngeal wall. Pharyngeal residue was the majority of contrast within or on pharyngeal structures. Esophageal clearance in the upright position could not be assessed due to logistical reasons not related to physiologic impairment. Oral Impairment Score: 10 (absence of score, component 1component 2) Pharyngeal Impairment Score: 9 (absence of score, component 13) Esophageal Impairment Score: --- (absence of score, component 17) Laryngeal Penetration and Aspiration: Penetration was observed in today's study. Thin Contrast entered the airway, remained above the vocal folds, and was ejected from the airway. ASSESSMENT: The patient's performance in today's study indicated impairment in swallowing as outlined below: -partial laryngeal elevation contributed to penetration, pharyngeal residue -incomplete epiglottic inversion contributed to penetration -incomplete laryngeal vestibular closure contributed to penetration. Clinician Assessment: This exam was conducted by a multidisciplinary team, which included a speech pathologist, radiologist, and perinatal technician. Pt was standing for lateral view only. Pt trialed the following liquid and solid consistencies: thin liquid barium (5 mL, individual cup sip), pureed solid (applesauce mixed with barium paste), and regular solid ([employer] cookie coated with barium paste). Unable to visualize labial seal with imaging. Clinically, pt did not appear to have any anterior loss of bolus. Posterior lingual motion was delayed and slow. Mastication pattern was slowed and disorganized, characterized by piece meal deglutition. There was significant residue coating on the tongue with trials of regular texture solid. Pt was able to reduce some residual with multiple dry swallows. After taking a sips of liquid, pt was able to clear most remaining residual. Pharyngeal swallow trigger was delayed, initiated as the bolus head reached the pyrifoms. There was no nasopharyngeal reflux. Incomplete laryngeal elevation. Incomplete epiglottic inversion and incomplete laryngeal vestibular closure with resultant flash penetration on thin liquids. Thin liquid entered the airway above the vocal folds and immediately and spontaneously ejected from the airway during the swallow. No evidence of aspiration with intake of liquids and solids. There was significant pharyngeal retention after the initial swallow with intake of regular texture solid. >50% of bolus collected on the tongue base, in the valleculae and on the posterior pharyngeal wall. At this point, pt indicated that she was experiencing globus pharyngeus and pointed to her throat when localizing the sensation. Pt was cued for a dry swallow, which reduced some residuals. Sips of liquid effectively cleared most residuals in the pharynx. Liquid Intake Recommendation: Thin Liquid Intake Strategies: Small Sips, No Straws Dietary Recommendations: Chopped/Advanced (NDD3) Medication Administration: Crushed with Puree Please contact the pharmacy regarding appropriate crushable or liquid drug formulations that are available whenever modified delivery is recommended. Compensatory Strategies Recommended: Double Swallow No Straw Small Bites and Sips Alternate Liquids/Solids Rate of Ingestion Change Avoid Specific Foods Supervision during eating and or drinking: None Needed Recommendation for Speech Therapy: Text Comment: PLAN: Intake Recommendations: Route: PO Diet Grade: Chopped- National Dysphagia Diet Level 3 (NDD3) Liquid Consistencies: Thin Post-Study Functional Oral Intake Scale (FOIS): 5- Total oral intake of multiple consistencies requiring special preparation This exam revealed flash penetration with thin liquid. No evidence of aspiration on intake of liquids and solids. There was notable retention in the oral cavity and in the pharynx, with pt experiencing globus pharyngeus. Pt was able to clear most residuals with multiple dry swallows and sips of liquid. Pt is recommended a CHOPPED/ADVANCED (NDD3) diet for ease of mastication. She is recommended the following strategies to minimize the risk of aspiration and to promote oral and pharyngeal clearance: -Food to be soft/tender and chopped into small, bite size pieces -Moisten food with sauces/gravies as needed -Take small bites of food, chew food well -Clear oral cavity before taking more bites -Follow each bite with 1-2 dry swallows and sips of liquid to promote pharyngeal clearance -Maintain upright 90 degree position while eating and drinking and for at least 60 minutes afterwards -Liquid by spoon or cup -Avoid the use of straws -Take small, individual sips of liquid -Avoid chain sipping -Avoid tough to chew solids; dry or overly sticky foods; and mixed textures These strategies were discussed with the pt after the exam. Pt verbalized understanding of recommended strategies. She says she ?cuts her food into fine little pieces? and cuts up her pills. At this point, further ST intervention is not warranted. Recommend pt to continue monitoring her dysphagia. If there are any changes or worsening of symptoms, consult with MD, at which point a re-evaluation may be indicated. Suggested Referrals: The patient might benefit from a referral to: Gastroenterology Indication for Referral: Continue workup Therapy Recommendations: Therapy will be discontinued The following compensatory strategies and/or therapeutic exercises will be part of the upcoming therapy/management plan: Liquid Wash Additional Swallow(s) per Bolus Clinician - Supplemental, Miscellaneous Communication: It is important to note MBSS objective studies are snapshots in time and Patient function might vary with factors such as time of day or concomitant medical conditions. For this reason, the final treatment plan for this patient should rest with their medical care team. Additional recommendations should be considered with the totality of the Patient in mind. Thank for the opportunity to participate in the care of this patient. If you have any questions about the content of this report, please contact the [facility] at [facility]. Education: Education regarding findings from today's study and plans for therapy were provided to Patient only through Verbal Instruction. Understanding was expressed by the Patient only. Electrical Contractor Clinician/Clinical Fellow: No Supervisory Statement: N/A Speech Language Pathologist: Cara Lo M.A., CCC-SR. PAYROLL PROCESSOR
== END 2023-02-03 15:01 | disposition home or self-care (01) ==
LOC: HO.XRAY 15:00
PROVIDERS: PCP Internal Medicine; Visit Provider Internal Medicine
DX: K22.4 Dyskinesia of esophagus (principal)
CPT/HCPCS: 74230; 92611

== ENCOUNTER → 2023-02-03 15:03 | Outpatient (BNV) | payer MEDICARE, SELFPAY | PROVIDERS: PCP Internal Medicine; Visit Provider Radiology Diagnostic Radiology | DX: K22.4 Dyskinesia of esophagus (principal) | CPT/HCPCS: 74230 ==

== ENCOUNTER 2023-02-10 14:41 | Outpatient (AMB) | payer MEDICARE, SELFPAY ==
--- NOTE | 2023-02-10 14:50 | A.OFFVIS_ITS ---
Intake Intake Visit Reasons: 3m/cysto(Bladder Ca) Intake Note: Patient is Present for Cystoscopy Urology Med: None Antibiotic Allergy: None Blood Thinner: Aspirin Pharmacy: [facility] Disposable Cystoscope lot: [id number] exp:08/23/2024 Allergies No Known Allergies [No Known Allergies*] Allergy (Verified 03/25/23 03:24) HPI HPI Comments History of Present Illness Details Gricelda is a pleasant female. She is a patient of Dr. Naik. She seen for the following urologic conditions - bladder cancer high-grade superficial Cystoscopy today Clear Continue surveillance Bladder cancer initial diagnosis February 2019 - last TURBT September 2021 high-grade Bladder cancer diagnosed TURBT December 2019 - high-grade noninvasive Further follow-up was postponed secondary to COVID Bladder procedures - December 2019 TURBT - June 2020 TURBT high-grade noninvasive, January 2021 TURBT high-grade noninvasive, 10/01 TURBT high-grade noninvasive Cystoscopy - 08/02 Adjuvant therapy - June 2020 - induction gemcitabine, February 2021 repeat induction gemcitabine - Boost 01/01 gemcitabine, 05/04 gemcitabi ne, 10/02 gemcitabine Cytology - 01/01 NAD, 05/04 NAD PFSH Medical History Chronic renal insufficiency HTN (hypertension) Cardiac pacemaker in situ AV block Leg edema Screening for diabetes mellitus On beta jake at home Arthritis Vertigo MARIELA (obstructive sleep apnea) Sick sinus syndrome Peripheral vascular disease Menieres disease Urinary bladder cancer Obesity Gout GERD (gastroesophageal reflux disease) Hypercholesterolemia Surgical History History of lumpectomy of left breast (03/10/23) History of esophagogastroduodenoscopy (EGD) S/P cardiac pacemaker procedure Hx of colonoscopy History of cystoscopy S/P MARION-BSO (total abdominal hysterectomy and bilateral salpingo-oophorectomy) History of cataract surgery History of knee replacement History of tonsillectomy History of appendectomy History of cholecystectomy Family History Father Stroke Mother Heart disease Social History Household Members: None Housing: Apartment Are you a primary acute care nursing assistant to a significant other at home: No Do you presently have visiting nurse or other home services: No Alcohol intake: current Alcohol intake frequency: does not drink Patient Tobacco Use Status: Former Tobacco user Quit Date: age 57 Tobacco use type: Cigarette e-Cigarette/Vaping Use: Never Used Second Hand Smoke Exposure: No service: No Current occupational status: retired Cognitive needs: No Hearing needs: Yes Vision needs: Yes Review of Systems Const Denies chills and Denies fever(s) Card Reports no additional complaints and Denies syncope Resp Denies cough GI Denies abdominal pain and Denies heartburn Reports as per HPI and Denies change in libido Neuro Denies syncope Psych Denies change in libido Endo Denies change in libido Physical Exam Const General: cooperative, healthy appearing, comfortable and no acute distress Orientation/consciousness: patient oriented x3 HEENT Face and sinus: Yes normal facial exam Mouth: moist mucous membranes Neck Neck: Yes normal visual inspection, Yes full ROM and Yes trachea midline Chest Chest palpation & inspection: normal inspection of the chest Resp Effort & Inspection: normal respiratory effort, able to speak in complete sentences and no respiratory distress GI Inspection: Yes normal to inspection Back/Spine/Pelvis Cervical Spine: normal cervical lordosis Thoracic/Lumbar Spine: thoracic and lumbar spine normal to inspection Skin General skin exam: no rashes or lesions noted Neuro General: patient oriented x3, gait normal, tone normal and moves all extremities Extrem General: Yes normal to inspection and Yes capillary refill normal Office Procedures Cystoscopy Consent Discussed risk and benefit or proposed procedure with the patient. Information consent for procedure given to the patient. Discussed technical aspects, risks, benefits and alternatives in full. Addressed all of the patient's questions and concerns regarding the procedure. The patient demonstrated knowledge and understanding. They wish to proceed with this procedure. Preparation The patient was prepped in the usual manner. A payroll and benefits manager was present and in the room. Genitalia was prepped with betadine solution in a sterile manner. Lidocaine Jelly 2% was placed into the urethra and 16Fr flexible Olympus cystoscope was inserted into the meatus after adequate lubrication. Procedure Meatus normal position Urethra normal Bladder examination with retroflexion of cystoscope Bladder Orifices normal shape and position Trigone normal Bladder Capacity medium Trabeculations - Cellule Formation - Diverticulum Formation - Mucosal Erythema - Bladder Tumor - [id number] DISPOSABLE SCOPE URO-G FLEXIBLE SCOPE Procedure code (CPT) selection complete Office Meds lidocaine HCl 2 % mucosal jelly in applicator Performing Provider: Francisco Dowell MD Performing Location: [facility] Administered by: Korey Pedro LPN on 02/10/23 15:12 Dose Route Admin Location Dispensed Lot Number Expiration Date ND Tanning Wheel Filler 10 mL intra-urethral 10 mL nitrofurantoin monohydrate/macrocrystals 100 mg capsule Performing Provider: Francisco Dowell MD Performing Location: [facility] Administered by: Korey Pedro LPN on 02/10/23 15:12 Dose Route Admin Location Dispensed Lot Number Expiration Date ND Tanning Wheel Filler 100 mg PO 1 cap naproxen 500 mg tablet Performing Provider: Frnacisco Dowell MD Performing Location: [facility] Administered by: Korey Pedro LPN on 02/10/23 15:12 Dose Route Admin Location Dispensed Lot Number Expiration Date ND Tanning Wheel Filler 500 mg PO 1 tab Results AMB Urinalysis, Automated UA Leukoctes 0 Stephanie/uL Last Edit by Alvina Almonte [facility] on 02/10/23 14:56 UA Nitrite Negative Last Edit by Alvina Almonte [facility] on 02/10/23 14:56 UA Urobilinogen 1 mg/dL Last Edit by Alvina Almonte [facility] on 02/10/23 14:56 UA Protein 30 mg/dL Last Edit by Alvina Almonte [facility] on 02/10/23 14:56 UA pH 6.0 Last Edit by Alvina Almonte [facility] on 02/10/23 14:56 UA Blood 0 Dc/uL Last Edit by Alvina Almonte [facility] on 02/10/23 14:56 UA Specific Rebuck 1.015 Last Edit by Alvina Almonte [facility] on 02/10/23 14: 56 UA Ketone Negative Last Edit by Alvina Almonte [facility] on 02/10/23 14:56 UA Bilirubin 0 mg/dL Last Edit by Alvina Almonte [facility] on 02/10/23 14:56 UA Glucose 0 mg/dL Last Edit by Alvina Almonte [facility] on 02/10/23 14:56 Results Reviewed Results Reviewed: Laboratory Last Values Urine pH (Auto) 6.0 02/10/23 14:54 Specific Rebuck (Auto) 1.015 02/10/23 14:54 Urine Protein (Auto) 30 mg/dL 02/10/23 14:54 Glucose (UA)(Auto) 0 mg/dL 02/10/23 14:54 Urine Ketones (Auto) Negative 02/10/23 14:54 Urine Blood (Auto) 0 Dc/uL 02/10/23 14:54 Urine Nitrite (Auto) Negative 02/10/23 14:54 Urine Bilirubin (Auto) 0 mg/dL 02/10/23 14:54 Urine Urobilinogen (Auto) 1 mg/dL 02/10/23 14:54 Leukocyte Esterase (Auto) 0 Stephanie/uL 02/10/23 14:54 Assessment & Plan Assessment & Plan (1) Urinary bladder cancer: Comment: TURBT superficial high-grade Dr. Meza TURBT Dr. 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, 06/30 HG Superficial September 2021 TURBT and gemcitabine installation Code(s): C67.9 - Malignant neoplasm of bladder, unspecified Qualifiers: Bladder location: unspecified site Qualified Code(s): C67.9 - Malignant neoplasm of bladder, unspecified Plan Continue follow-up Cytology examination Orders: Orders AMB Urinalysis Automated 02/10/23 Z13.9 - Encounter for screening, unspecified AMB Cystoscopy 02/10/23 C67.9 - Malignant neoplasm of bladder, unspecified FISH Bladder Cancer 02/10/23 C67.9 - Malignant neoplasm of bladder, unspecified Patient Instructions: Imaging studies, laboratory and physical exam results were discussed and reviewed in detail. No major barriers to patient understanding were identified. An opportunity to ask questions regarding the treatment plan was provided. All questions were answered. The patient expressed understanding and agreement with the above treatment plan. The patient is aware they should contact our office by phone for worsening of their current condition or the appearance of new urologic symptoms. Compliance is encouraged with any medications and followup testing that is ordered. It is a privilege to participate in the urologic care of your patient. If you have any questions or concerns regarding treatment for the above conditions, or other urologic issues, please do not hesitate to contact me. The office telephone contact is [phone]. This note is constructed using voice recognition software. While every effort has been made to ensure accuracy customs collector errors may have been included. Yours sincerely, Dr Francisco Dowell MD, [facility] - Urology Providers of Expert, Compassionate Care for the Genitourinary System Coding Level of Care Code Procedure Only Diagnoses Malignant neoplasm of urinary bladder, unspecified site C67.9 Bladder location: unspecified site CPT Codes Cystoscopy - CPT: 07980-[id number] ([id number])
== END 2023-02-10 15:29 | disposition home or self-care (01) ==
PROVIDERS: PCP Internal Medicine; Visit Provider Urology
DX: C67.9 Malignant neoplasm of bladder, unspecified (principal)
CPT/HCPCS: 52000

== ENCOUNTER 2023-02-10 14:41 | Outpatient (REF) | payer MEDICARE, SELFPAY | END 2023-02-10 14:42 | disposition home or self-care (01) | LOC: HO.LAB 14:41 | PROVIDERS: PCP Internal Medicine; Visit Provider Urology | DX: C67.9 Malignant neoplasm of bladder, unspecified (principal) | CPT/HCPCS: 52000; 81003; 88121 ==

== ENCOUNTER 2023-02-11 08:32 | Outpatient (AMB) | payer MEDICARE, SELFPAY ==
--- NOTE | 2023-02-11 08:34 | A.OFFVIS_ITS ---
Intake Vital Signs 3 02/11/23 08:44 Height 5 ft 1 in Weight 182 lb BMI 34.4 BP 135/62 Blood Pressure Location Lt brachial Position Sitting Pulse 87 Intake Visit Reasons: left brst u/s bx for mass 2 o'clock Intake Note: Patient is seen in office for biopsy consult, following left breast 2 o'clock mass. Patient c/o: denies any concerns regarding the breast, no prior surgeries, lumps or infections Fashion Photographer Required: No Accompanied by: Self / Same As Patient Allergies No Known Allergies [No Known Allergies*] Allergy (Verified 02/11/23 08:40) Medication List - Last Reconciled 02/11/23 by Lalo Correia MD allopurinol 300 mg PO DAILY amlodipine 5 mg PO DAILY aspirin (Adult Low Dose Aspirin) 81 mg PO DAILY cholecalciferol (vitamin D3) 25 mcg PO DAILY coenzyme Q10 (Co Q-10) 100 mg PO DAILY cyanocobalamin (vitamin B-12) 1,000 mcg PO DAILY gabapentin 300 mg PO DAILY meclizine 25 mg PO DAILY metoprolol succinate ER 50 mg PO DAILY 90 days nystatin 1 appl topical QID 90 days omeprazole 20 mg PO DAILY polyethylene glycol 3350 (Miralax) 17 grams PO DAILY simvastatin 20 mg PO BEDTIME HPI HPI Comments 2 History of Present Illness0 Details 87-year-old female patient presenting wi th a recent mammogram dated 01/19/2023 with follow-up images obtained 02/01/2023 which revealed a suspicious density in the left breast at the upper outer quadrant. Subsequent workup with ultrasound at the upper outer quadrant of left breast revealed a 14 x 11 x 9 mm irregular hypoechoic mass in the 02:00 o'clock region of the left breast, 7 cm from the nipple. This was highly suggestive of malignancy and ultrasound-guided biopsy recommended (BI-RADS 5). She denies a prior history of breast problems or breast surgery. She denies any ongoing breast symptoms at this time. Her family history is negative for breast cancer. She is G0. She is scheduled for an ultrasound-guided core biopsy on 10/12/2022 at the [facility]. [facility] Medical History Cardiac pacemaker in situ AV block Leg edema Screening for diabetes mellitus On beta jake at home Arthritis Vertigo MARIELA (obstructive sleep apnea) Sick sinus syndrome Peripheral vascular disease Menieres disease Urinary bladder cancer Obesity Gout GERD (gastroesophageal reflux disease) Hypercholesterolemia Surgical History History of abdominal hysterectomy History of esophagogastroduodenoscopy (EGD) S/P cardiac pacemaker procedure Hx of colonoscopy History of cystoscopy S/P MARION-BSO (total abdominal hysterectomy and bilateral salpingo-oophorectomy) History of cataract surgery History of knee replacement History of tonsillectomy History of appendectomy History of cholecystectomy Family History Father Stroke Mother Heart disease Social History Housing: House Alcohol intake: current Alcohol intake frequency: does not drink Patient Tobacco Use Status: Former Tobacco user Tobacco use type: Cigarette e-Cigarette/Vaping Use: Never Used Second Hand Smoke Exposure: No Current occupational status: retired Cognitive needs: No Hearing needs: Yes Vision needs: Yes Female Reproductive History Menstrual Total pregnancies: 0 Review of Systems Const All systems reviewed & are unremarkable except as noted in HPI and below Denies chills, Denies fever(s), Denies headache(s), Denies poor appetite and Denies weakness ENT Denies headache(s) Card Denies chest pain, Denies irregular heart rhythm, Denies palpitations and Denies dyspnea Resp Denies cough, Denies excessive phlegm production and Denies dyspnea GI Denies abdominal pain, Denies bloating, Denies change in bowel habits, Denies constipation, Denies heartburn, Denies diarrhea, Denies nausea and Denies vomiting Details: History of bladder CA Denies urinary frequency and Denies nipple discharge Musc Denies back pain, Denies muscle weakness and Denies numbness Skin/Breast Denies breast swelling, Denies breast skin changes, Denies breast pain, Denies breast mass, Denies changing lesions, Denies nipple discharge and Denies unusual bruising Neuro Denies headache(s), Denies numbness, Denies paresthesias and Denies weakness Psych Denies anxiety and Denies depression Endo Denies palpitations Arsenio/Lymph Denies lymphadenopathy Physical Exam Vital Signs: Last Vital Signs Pulse 87 02/11/23 08:44 BP 135/62 02/11/23 08:44 BMI result Body Mass Index 34.4 Const General: cooperative and no acute distress Nutritional Appearance: well nourished Orientation/consciousness: patient oriented x3 Limitations: no limitations and ambulation with walker HEENT Head: Yes normocephalic and Yes atraumatic Ears: hearing grossly normal bilaterally Chest Other: Left breast: Palpable mass approximately 1.5 cm in diameter min noted within the breast tissue, 2 o'clock position, 7 cm from the nipple with no overlying skin change fixation to chest wall, corresponding to mammogram findings. No other palpable mass, skin change, nipple discharge or palpable lymphadenopathy. Right breast: No skin change, nipple discharge, nipple retraction, palpable mass or enlarged lymph nodes appreciated. Chest/axillae images: 2 1. Left breast: 1.5 cm mass, 7 cm from the nipple, 2 o'clock position Resp Effort & Inspection: normal respiratory effort, no audible wheezes, no cough and no respiratory distress Cardio Jugular venous distension: no JVD GI Inspection: Yes normal to inspection Skin Other: Warm, dry, no rash Neuro General: patient oriented x3 Extrem General: Yes no clubbing, cyanosis or edema Assessment & Plan Assessment & Plan (1) Abnormal mammogram of left breast: Code(s): R92.8 - Other abnormal and inconclusive findings on diagnostic imaging of breast (2) Abnormal ultrasound of breast: Code(s): R92.8 - Other abnormal and inconclusive findings on diagnostic imaging of breast Plan 87-year-old female patient presenting with a recent mammogram and ultrasound which revealed a suspicious mass in the left breast 2 o'clock position 7 cm from the nipple 1.4 cm maximal diameter (BI-RADS 5). On examination there is indeed a palpable mass located in this location measuring approximately 1.5 cm with no fixation to skin or chest wall. No enlarged lymph nodes are appreciated (clinical [id number]). She is scheduled for an ultrasound-guided core biopsy at the [facility] on 02/12/2023. I reviewed the procedure and images in detail with the patient and she expressed understanding. She will return approximately 1 week review the pathology results and discuss treatment options as necessary. She is welcome to call sooner for any new concerns. Orders: Orders 2 US breast ndl core biopsy LT Today R92.8 - Other abnormal and inconclusive findings on diagnostic imaging of breast Coding Level of Care Code New Pt Level 4 (03506) Diagnoses Abnormal mammogram of left breast R92.8 Abnormal ultrasound of breast R92.8
[2023-02-11 08:44] VITALS: BP 135/62; PULSE 87; BMI 34.4
== END 2023-02-11 09:06 | disposition home or self-care (01) ==
PROVIDERS: PCP Internal Medicine; Visit Provider Surgery
DX: R92.8 Other abnormal and inconclusive findings on diagnostic imaging of breast (principal)
CPT/HCPCS: 99204

== ENCOUNTER → 2023-02-11 08:32 | Outpatient (BNVA) | payer MEDICARE, SELFPAY | PROVIDERS: PCP Internal Medicine; Visit Provider Surgery | DX: R92.8 Other abnormal and inconclusive findings on diagnostic imaging of breast (principal) | CPT/HCPCS: 99202 ==

== ENCOUNTER 2023-02-12 07:50 | Outpatient (REF) | payer MEDICARE, SELFPAY ==
--- NOTE | ~2023-02-12 | MM_ITS ---
PROCEDURE: US GUIDED BREAST BIOPSY, LEFT CLINICAL INFORMATION: Irregular mass upper outer quadrant left breast seen on screening mammography and ultrasound 02/01/2023, recommended for biopsy. COMPARISON: 02/01/2023 ultrasound and mammography, 01/19/2023 mammography, 06/26/2019, and dating back to 2011. PROCEDURAL DETAILS: The details of the procedure, as well as the risks, benefits, and alternatives to the procedure were explained to the patient in detail and all of her questions were answered, after which written informed consent was obtained. Site and side were confirmed. Prior to the procedure, sonography revealed a left breast irregular mass at the 2:00 axis, 7 cm from the nipple, hypoechoic, measuring 0.9 x 1.4 x 1.1 cm. A time-out was performed, the lesion intended for biopsy was targeted, and the skin of the overlying left breast was then prepped and draped in the usual sterile fashion. Using sonographic guidance, sterile technique, and 1% lidocaine without epinephrine for local anesthesia, 3 adequate core biopsies were obtained through the targeted area with a 14G spring loaded Achieve core biopsy device. There was real-time confirmation of appropriate needle passage. Sampling was documented. At the completion of tissue sampling, a single open coil-shaped metallic clip was deposited at the biopsy site. There was no evidence of immediate complication. SPECIMEN: An appropriate sample was obtained. DIGITAL POST-PROCEDURE MAMMOGRAPHY: Breast density: The tissue is almost entirely fatty. BI-RADS version 5, category a. There are no new mammographic findings demonstrated. The postprocedure 2-view direct digital mammogram reveals satisfactory and accurate positioning of the biopsy clip. No evidence of hematoma or complication. The patient tolerated the procedure well and, after assuring adequate hemostasis, was discharged in good condition after reviewing postbiopsy breast care instructions. Final pathology results are pending. MM/MM diagnostic mammo unilat LT IMPRESSION: 1. No immediate complication from ultrasound-guided percutaneous biopsy left breast. 2. Ultrasound was used to localize and guide marker clip placement. 3. The 2-view direct digital postprocedure mammogram reveals satisfactory and accurate positioning of the biopsy clip. 4. Final pathology results are pending. A separate report with final recommendations will be issued once these results are made available.
[2023-02-12] MEDS: Lidocaine HCl 1 % 20 ML VIAL 9 ML SUBCUT (09:19)
[2023-02-12] MEDS: Sodium Bicarbonate 8.4% 50 MEQ/50 ML VIAL SUBCUT (09:21)
== END 2023-02-12 07:51 | disposition home or self-care (01) ==
LOC: HO.MAMMO 07:50
PROVIDERS: PCP Internal Medicine; Visit Provider Surgery
DX: R92.8 Other abnormal and inconclusive findings on diagnostic imaging of breast (principal)
CPT/HCPCS: 19083; 77062; 77065; 88305; 88341; 88342; 88360; A4648

== ENCOUNTER → 2023-02-12 08:00 | Outpatient (BNV) | payer MEDICARE, SELFPAY | PROVIDERS: PCP Internal Medicine; Visit Provider Radiology Diagnostic Radiology | DX: R92.8 Other abnormal and inconclusive findings on diagnostic imaging of breast (principal) | CPT/HCPCS: 19083; 77065 ==

== ENCOUNTER 2023-02-15 13:23 | Outpatient (AMB) | payer MEDICARE, SELFPAY ==
[2023-02-15 13:28] VITALS: BP 120/62; PULSE 83; O2SAT 96; BMI 35.0
--- NOTE | 2023-02-15 13:28 | MHC.PC.OV ---
Vital Signs 02/15/23 13:28 Height 5 ft 1 in Weight 185 lb BMI 35.0 BP 120/62 Blood Pressure Location Lt brachial Position Sitting Pulse 83 Pulse Source Pulse Oximeter Pulse Oximetry (%) 96 Oxygen Delivery Method Room Air Intake Visit Reasons: Hypertension Allergies No Known Allergies [No Known Allergies*] Allergy (Verified 02/15/23 13:28) Tobacco use date assessed: 09/21/22 Fall risk assessment: No Falls in past year Last assessed Fall Risk: 02/15/23 Dental Screening Dental Screen Date: 02/15/23 Did you have a dental visit in the last 12 months?: No Did you have a dental problem in the last 6 months where you did not have access to dental care?: No Was dental information given to patient?: No HPI Hypertension HPI Details 87-year-old obese female with hypertension urinary bladder cancer GERD hypercholesterolemia last seen in October 2022 patient is here for follow-up patient has a left breast mass at o'clock patient had a an ultrasound-guided biopsy done 02/12/2023 results pending. Patient also has a history of bladder cancer February 2019 had TURBT September 2021 had gemcitabine injection. Patient was sent by Gastroenterology for barium swallow demonstrating laryngeal penetration without tracheal aspiration patient has been referred to speech pathology. Patient was seen by the nurse practitioner for annual well visit in December 2022. HCTZ taken out before due to dehydration but now complaining of Leg swelling- wants the HCTZ in. [facility] Medical History Cardiac pacemaker in situ AV block Leg edema Screening for diabetes mellitus On beta jake at home Arthritis Vertigo MARIELA (obstructive sleep apnea) Sick sinus syndrome Peripheral vascular disease Menieres disease Urinary bladder cancer Obesity Gout GERD (gastroesophageal reflux disease) Hypercholesterolemia Surgical History History of abdominal hysterectomy History of esophagogastroduodenoscopy (EGD) S/P cardiac pacemaker procedure Hx of colonoscopy History of cystoscopy S/P MARION-BSO (total abdominal hysterectomy and bilateral salpingo-oophorectomy) History of cataract surgery History of knee replacement History of tonsillectomy History of appendectomy History of cholecystectomy Family History Father Stroke Mother Heart disease Social History Housing: House Alcohol intake: current Alcohol intake frequency: does not drink Patient Tobacco Use Status: Former Tobacco user Tobacco use type: Cigarette e-Cigarette/Vaping Use: Never Used Second Hand Smoke Exposure: No Current occupational status: retired Cognitive needs: No Hearing needs: Yes Vision needs: Yes Questionnaire PHQ-9 Over the last 2 weeks, how often have you been bothered by any of the following problems? 1. Little interest or pleasure in doing things: not at all 2. Feeling down, depressed, or hopeless: not at all 3. Trouble falling or staying asleep, or sleeping too much: not at all 4. Feeling tired or having little energy: not at all 5. Poor appetite or overeating: not at all 6. Feeling bad about yourself - or that you are a failure or have let yourself or your family down: not at all 7. Trouble concentrating on things, such as reading the newspaper or watching television: not at all 8. Moving or speaking so slowly that other people could have noticed. Or the opposite - being so fidgety or restless that you have been moving around a lot more than usual: not at all 9. Thoughts that you would be better off or of hurting yourself in some way: not at all Total score: 0 Depression Screening Interpretation: Negative Depression Screening Done: Yes 77632 - PHQ-9 Billing: Yes Source: Developed by Drs. Wilver Hightower, Tanya Bardales, Thomas Perry and colleagues, with an educational mike from [employer]. Thrive Questionnaire Date Thrive assessed: 05/20/22 AUDIT C Alcohol Use Questionnaire (AUDIT-C) 1. How often do you have a drink containing alcohol?: Never 3. How often do you have six or more drinks on one occasion?: Never Total Score: 0 DESI-7 AMB Questionnaire DESI-7 Date DESI - 7 assessed: 05/20/22 Source: Developed by Drs. Wilver Hightower, Tanya Bardales, Thomas Perry and colleagues, with an educational mike from [employer]. Physical exam (Primary Care) Vital Signs: Last Vital Signs Pulse 83 02/15/23 13:28 BP 120/62 02/15/23 13:28 Pulse Ox 96 02/15/23 13:28 Oxygen Delivery Method Room Air 02/15/23 13:28 BMI result Body Mass Index 35.0 Tobacco/Smoking Status: Tobacco use Status Tobacco use date assessed 09/21/22 02/15/23 13:34 Patient Tobacco Use Status Former Tobacco user 02/15/23 13:34 Tobacco use type Cigarette 02/15/23 13:34 e-Cigarette/Vaping Use Never Used 02/15/23 13:34 PHQ-9: PHQ-9 Score PHQ-9: Total score 0 02/15/23 13:34 Depression Screening Interpretation: Negative Thrive Assessment: Date of Thrive Assessment Date Thrive assessed 05/20/22 02/15/23 13:34 Const General: alert; No acute distress Eyes Conjunctivae: conjunctivae normal Resp Auscultation: clear to auscultation bilaterally Cardio Rate: regular rate Rhythm: regular rhythm GI Inspection: Yes normal to inspection Extrem General: Yes normal to inspection and No edema Assessment and Plan Assessment & Plan (1) Dysphagia: Code(s): R13.10 - Dysphagia, unspecified Plan: Patient has been referred to speech pathology for swallow evaluation (2) Urinary bladder cancer: Comment: TURBT superficial high-grade Dr. Meza TURBT Dr. 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, 06/30 HG Superficial September 2021 TURBT and gemcitabine installation Code(s): C67.9 - Malignant neoplasm of bladder, unspecified Qualifiers: Bladder location: unspecified site Qualified Code(s): C67.9 - Malignant neoplasm of bladder, unspecified Plan: Continue to follow-up with urology and hematology oncology (3) Abnormal mammogram of left breast: Code(s): R92.8 - Other abnormal and inconclusive findings on diagnostic imaging of breast Plan: Breast biopsy is pending results done 02/12/2023 (4) Essential hypertension: Code(s): I10 - Essential (primary) hypertension Plan: Continue with blood pressure medication. Decrease salt intake and exercise on amlodipine 5 mg once a day metoprolol 50 mg once a day. Hydrochlorothiazide was taken off because of dehydration but now patient's legs swelling started and would like that hydrochlorothiazide back. Advised to make sure patient is well hydrated (5) GERD (gastroesophageal reflux disease): Code(s): K21.9 - Gastro-esophageal reflux disease without esophagitis Qualifiers: Esophagitis presence: without esophagitis Qualified Code(s): K21.9 - Gastro-esophageal reflux disease without esophagitis Plan: Avoid the foods that causes that usually spicy foods, tomato products, juices, coffee, soda and foods that your sensitive to. After eating do not lie down, allow 3-4 hours before in lie down. And keep the head of bed above 30 degrees to avoid the acid from going up. Medications: Refilled hydrochlorothiazide 25 mg PO DAILY 90 tabs 3RF Coding Level of Care Code Est Pt Level 4 (88625) Diagnoses Dysphagia R13.10 Malignant neoplasm of urinary bladder, unspecified site C67.9 Bladder location: unspecified site Abnormal mammogram of left breast R92.8 Essential hypertension I10 Gastroesophageal reflux disease without esophagitis K21.9 Esophagitis presence: without esophagitis
== END 2023-02-15 14:08 | disposition home or self-care (01) ==
PROVIDERS: PCP Internal Medicine; Visit Provider Internal Medicine
DX: R13.10 Dysphagia, unspecified (principal); C67.9 Malignant neoplasm of bladder, unspecified; R92.8 Other abnormal and inconclusive findings on diagnostic imaging of breast; I10 Essential (primary) hypertension; K21.9 Gastro-esophageal reflux disease without esophagitis; Z23 Encounter for immunization
CPT/HCPCS: 90471; 90677; 99214

== ENCOUNTER 2023-02-18 15:16 | Outpatient (AMB) | payer MEDICARE, SELFPAY ==
--- NOTE | 2023-02-18 15:18 | MHC.OFFVIS ---
Intake Vital Signs 02/18/23 15:24 Height 5 ft 1 in Weight 182 lb 15.739 oz BMI 34.6 BP 130/82 Blood Pressure Location Lt brachial Position Sitting Intake Visit Reasons: S/P left brst u/s bx for mass 2 o'clock Intake Note: Patient is seen in office for biopsy results, following left breast 2 o'clock mass. Patient c/o: denies any concerns after biopsy area healing well, here for results Relief Charge Nurse Required: No Accompanied by: Sister Allergies No Known Allergies [No Known Allergies*] Allergy (Verified 02/18/23 15:25) Medication List - Last Reconciled 02/18/23 by Lalo Correia MD allopurinol 300 mg PO DAILY amlodipine 5 mg PO DAILY aspirin (Adult Low Dose Aspirin) 81 mg PO DAILY cholecalciferol (vitamin D3) 25 mcg PO DAILY coenzyme Q10 (Co Q-10) 100 mg PO DAILY cyanocobalamin (vitamin B-12) 1,000 mcg PO DAILY gabapentin 300 mg PO DAILY hydrochlorothiazide 25 mg PO DAILY meclizine 25 mg PO DAILY metoprolol succinate ER 50 mg PO DAILY 90 days nystatin 1 appl topical QID 90 days omeprazole 20 mg PO DAILY polyethylene glycol 3350 (Miralax) 17 grams PO DAILY simvastatin 20 mg PO BEDTIME HPI HPI Comments History of Present Illness Details 87-year-old female patient presenting with a recent mammogram dated 01/19/2023 with follow-up images obtained 02/01/2023 which revealed a suspicious density in the left breast at the upper outer quadrant. Subsequent workup with ultrasound at the upper outer quadrant of left breast revealed a 14 x 11 x 9 mm irregular hypoechoic mass in the 02:00 o'clock region of the left breast, 7 cm from the nipple. This was highly suggestive of malignancy and ultrasound-guided biopsy recommended (BI-RADS 5). She denies a prior history of breast problems or breast surgery. She denies any ongoing breast symptoms at this time. Her family history is positive for a sister having breast cancer. She is G0. She underwent an ultrasound-guided core biopsy at the [facility] on 10/12/2022. She returns today to review the pathology results. Pathology did reveal an invasive ductal carcinoma with lobular features. Hormone receptor status is pending at the time of this dictation. A copy of the report was provided to the patient. She tolerated the procedure well and denies any ongoing breast symptoms. [facility] Medical History Cardiac pacemaker in situ AV block Leg edema Screening for diabetes mellitus On beta jake at home Arthritis Vertigo MARIELA (obstructive sleep apnea) Sick sinus syndrome Peripheral vascular disease Menieres disease Urinary bladder cancer Obesity Gout GERD (gastroesophageal reflux disease) Hypercholesterolemia Surgical History History of abdominal hysterectomy History of esophagogastroduodenoscopy (EGD) S/P cardiac pacemaker procedure Hx of colonoscopy History of cystoscopy S/P MARION-BSO (total abdominal hysterectomy and bilateral salpingo-oophorectomy) History of cataract surgery History of knee replacement History of tonsillectomy History of appendectomy History of cholecystectomy Family History Father Stroke Mother Heart disease Social History Housing: House Alcohol intake: current Alcohol intake frequency: does not drink Patient Tobacco Use Status: Former Tobacco user Tobacco use type: Cigarette e-Cigarette/Vaping Use: Never Used Second Hand Smoke Exposure: No Current occupational status: retired Cognitive needs: No Hearing needs: Yes Vision needs: Yes Female Reproductive History Menstrual Total pregnancies: 0 Review of Systems Const All systems reviewed & are unremarkable except as noted in HPI and below Denies chills, Denies fever(s), Denies headache(s), Denies poor appetite and Denies weakness ENT Denies headache(s) Card Denies chest pain, Denies irregular heart rhythm, Denies palpitations and Denies dyspnea Resp Denies cough, Denies excessive phlegm production and Denies dyspnea GI Denies abdominal pain, Denies bloating, Denies change in bowel habits, Denies constipation, Denies heartburn, Denies diarrhea, Denies nausea and Denies vomiting Details: History of bladder CA Denies urinary frequency and Denies nipple discharge Musc Denies back pain, Denies muscle weakness and Denies numbness Skin/Breast Denies breast swelling, Denies breast skin changes, Denies breast pain, Denies breast mass, Denies changing lesions, Denies nipple discharge and Denies unusual bruising Neuro Denies headache(s), Denies numbness, Denies paresthesias and Denies weakness Psych Denies anxiety and Denies depression Endo Denies palpitations Arsenio/Lymph Denies lymphadenopathy Physical Exam Vital Signs: Last Vital Signs BP 130/82 02/18/23 15:24 BMI result Body Mass Index 34.6 Const General: cooperative and no acute distress Nutritional Appearance: well nourished Orientation/consciousness: patient oriented x3 Limitations: no limitations and ambulation with walker HEENT Head: Yes normocephalic and Yes atraumatic Ears: hearing grossly normal bilaterally Chest Other: Left breast: Palpable mass approximately 1.5 cm in diameter min noted within the breast tissue, 2 o'clock position, 7 cm from the nipple with no overlying skin change fixation to chest wall, corresponding to mammogram findings. No other palpable mass, skin change, nipple discharge or palpable lymphadenopathy. Right breast: No skin change, nipple discharge, nipple retraction, palpable mass or enlarged lymph nodes appreciated. Resp Effort & Inspection: normal respiratory effort, no audible wheezes, no cough and no respiratory distress Cardio Jugular venous distension: no JVD GI Inspection: Yes normal to inspection Skin Other: Warm, dry, no rash Neuro General: patient oriented x3 Extrem General: Yes no clubbing, cyanosis or edema Assessment & Plan Assessment & Plan (1) Breast cancer, left: Comment: 02/2023 Invasive with lobular and ductal features Code(s): C50.912 - Malignant neoplasm of unspecified site of left female breast Qualifiers: Breast location: upper outer quadrant of breast Estrogen receptor status: unspecified Patient sex: female Qualified Code(s): C50.412 - Malignant neoplasm of upper-outer quadrant of left female breast Plan 87-year-old female patient presenting with a 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 I reviewed the preliminary pathology results with the patient and discussed treatment options including left breast lumpectomy with localizer, and left axillary sentinel node biopsy. After a discussion of the procedure, risks, and alternatives, she consents to the surgery. This will be scheduled at her earliest convenience. Coding Level of Care Code Est Pt Level 4 (45391) Diagnoses Malignant neoplasm of upper-outer quadrant of left female breast, unspecified estrogen receptor status C50.412 Breast location: upper outer quadrant of breast Estrogen receptor status: unspecified Patient sex: female
[2023-02-18 15:24] VITALS: BP 130/82; BMI 34.6
== END 2023-02-18 15:38 | disposition home or self-care (01) ==
PROVIDERS: PCP Internal Medicine; Visit Provider Surgery
DX: C50.412 Malignant neoplasm of upper-outer quadrant of left female breast (principal)
CPT/HCPCS: 99214

== ENCOUNTER → 2023-02-18 15:16 | Outpatient (BNVA) | payer MEDICARE, SELFPAY | PROVIDERS: PCP Internal Medicine; Visit Provider Surgery | DX: C50.412 Malignant neoplasm of upper-outer quadrant of left female breast (principal) | CPT/HCPCS: 99212 ==

== ENCOUNTER 2023-02-24 13:25 | Outpatient (AMB) | payer MEDICARE, SELFPAY ==
[2023-02-24 13:43] VITALS: BP 121/68; PULSE 75; BMI 34.4
--- NOTE | 2023-02-24 13:43 | A.OFFVIS_ITS ---
Intake Vital Signs 02/24/23 13:43 Height 5 ft 1 in Weight 182 lb BMI 34.4 BP 121/68 Blood Pressure Location Lt brachial Position Sitting Pulse 75 Intake Visit Reasons: Discuss test results Intake Note: Gricelda presents in the office as a follow up for test results. CC: She states that she is not having any concerns at this time. Allergies No Known Allergies [No Known Allergies*] Allergy (Verified 02/18/23 15:25) HPI HPI Comments History of Present Illness Details This is an 87 y.o F with PMH of bladder ca on gemcitabine and TURBT (Dr Dowell), CHB s/p dual chamber pacemaker, HTN, known esophageal dysmotility who is here for dysphagia. 12/07/22: Hx was obtained from the pt who states that around 2018 she started noticing difficulty swallowing food. Greg solid foods seems to get stuck in upper esophagus. Has frequent regurgi with liquids. Had a barium swallow at [facility] which showed severe dysmotility. However she never actually followed up with the gastroenterology. Has a remote hx of upper endoscopy which was likely done before this issue started. Most of the foods that bother her are broccoli, chicken, bread. Has had weight loss of almost 50 lbs in the past one year but unsure if due to bladder ca as does not have the appetite to eat. Last colonoscopy was almost 11 years ago in [place]. No fam hx of CRC. 02/24/23: Patient is here for follow-up after completing modified barium swallow as well as a CT chest. Possible goiter noted on CT chest but otherwise no abnormal findings to explain dysphagia. She was noted to have laryngeal penetration on modified barium swallow and speech therapy recommended dysphagia level 3 diet. Of note patient has recently been diagnosed with left-sided breast cancer and scheduled to under lumpectomy later this month. Otherwise, does not report any changes in her swallowing since the last time. Previously had reported remarkable weight loss when she was initially seen, however compared to November, weight curve has remained stable. FORMERLY [facility], [facility]1983 Medical History Cardiac pacemaker in situ AV block Leg edema Screening for diabetes mellitus On beta jake at home Arthritis Vertigo MARIELA (obstructive sleep apnea) Sick sinus syndrome Peripheral vascular disease Menieres disease Urinary bladder cancer Obesity Gout GERD (gastroesophageal reflux disease) Hypercholesterolemia Surgical History History of abdominal hysterectomy History of esophagogastroduodenoscopy (EGD) S/P cardiac pacemaker procedure Hx of colonoscopy History of cystoscopy S/P MARION-BSO (total abdominal hysterectomy and bilateral salpingo-oophorectomy) History of cataract surgery History of knee replacement History of tonsillectomy History of appendectomy History of cholecystectomy Family History Father Stroke Mother Heart disease Social History Housing: House Alcohol intake: current Alcohol intake frequency: does not drink Patient Tobacco Use Status: Former Tobacco user Tobacco use type: Cigarette e-Cigarette/Vaping Use: Never Used Second Hand Smoke Exposure: No Current occupational status: retired Cognitive needs: No Hearing needs: Yes Vision needs: Yes Review of Systems Const All systems reviewed & are unremarkable except as noted in HPI and below Physical Exam Vital Signs: Last Vital Signs Pulse 75 02/24/23 13:43 BP 121/68 02/24/23 13:43 BMI result Body Mass Index 34.4 Gen appear: NAD HEENT: nonicteric, no cervical lymphadenopathy Chest: CTA CVS: Regular S1/S2 Abd: soft, nontender, nondistended, bowel sounds + Ext: no peripheral edema Neuro: A/Ox3, noted to move all extremities spontaneously Psych: interacting appropriately Assessment & Plan Assessment & Plan (1) Esophageal dysmotility: Comment: 2018 Code(s): K22.4 - Dyskinesia of esophagus (2) Dysphagia: Code(s): R13.10 - Dysphagia, unspecified Plan Based on workup so far, dysphagia appears to be pharyngoesphageal dysphagia with some degree of incoordination noted on ST eval as well and recommendation was made to do multiple swallows with liquid wash to avoid the globus sensation pt complains of. Likely also has presbyesophagus or dysmotiltiy as previously documented in barium swallow done at [facility] in 2018. Will book her for an EGD for luminal evaluation to r/o web/ring/stricture, diverticulum, esophagitis. Pt requests this to be booked after her breast surgery which is reasonable. Will be going for cardiac clearance for her breast surgery. Cont omeprazole in the meantime. Coding Level of Care Code Est Pt Level 4 (28849) Diagnoses Esophageal dysmotility K22.4 Dysphagia R13.10
== END 2023-02-24 16:36 | disposition home or self-care (01) ==
PROVIDERS: PCP Internal Medicine; Visit Provider Internal Medicine
DX: K22.4 Dyskinesia of esophagus (principal); R13.10 Dysphagia, unspecified
CPT/HCPCS: 99214

== ENCOUNTER → 2023-02-24 13:25 | Outpatient (BNVA) | payer MEDICARE, SELFPAY | PROVIDERS: PCP Internal Medicine; Visit Provider Internal Medicine | DX: K22.4 Dyskinesia of esophagus (principal); R13.10 Dysphagia, unspecified | CPT/HCPCS: 99212 ==

== ENCOUNTER 2023-02-25 08:59 | Outpatient (AMB) | payer MEDICARE, SELFPAY ==
[2023-02-25 09:02] VITALS: BP 120/64; PULSE 70; BMI 34.3
--- NOTE | 2023-02-25 09:02 | A.OFFVIS_ITS ---
Intake Vital Signs 02/25/23 09:02 Height 5 ft 1 in Weight 181 lb 10.574 oz BMI 34.3 BP 120/64 Blood Pressure Location Rt brachial Position Sitting Pulse 70 Intake Visit Reasons: Pre-op visit (general surgery) Allergies No Known Allergies [No Known Allergies*] Allergy (Verified 02/25/23 09:06) Medication List - Last Reconciled 02/25/23 by Anel Aburto, [employer] allopurinol 300 mg PO DAILY aspirin (Adult Low Dose Aspirin) 81 mg PO DAILY cholecalciferol (vitamin D3) 25 mcg PO DAILY coenzyme Q10 (Co Q-10) 100 mg PO DAILY cyanocobalamin (vitamin B-12) 1,000 mcg PO DAILY gabapentin 300 mg PO DAILY hydrochlorothiazide 25 mg PO DAILY meclizine 25 mg PO DAILY metoprolol succinate ER 50 mg PO DAILY 90 days nystatin 1 appl topical QID 90 days omeprazole 20 mg PO DAILY polyethylene glycol 3350 (Miralax) 17 grams PO DAILY PRN propylene glycol 0.6% (Systane Balance) 1 drp ophthalmic (eye) DAILY PRN simvastatin 20 mg PO BEDTIME HPI Pre-op visit (general surgery) HPI Details Gricelda is an 87-year-old female past medical history of hypertension, hyperlipidemia, obstructive sleep apnea, dual-chamber pacemaker who presents for preop evaluation. Today she reports that she has a new diagnosis of breast cancer and will need to have a lumpectomy. She feels well overall. No chest discomfort at rest or with activity. No shortness of breath, palpitations, PND, orthopnea or edema. No lightheadedness, presyncope, syncope, falls. She uses a wheeling walker with ambulation. Takes all her meds as directed. Does not have a monitor at her bedside for her pacemaker. [facility] Medical History Cardiac pacemaker in situ AV block Leg edema Screening for diabetes mellitus On beta jake at home Arthritis Vertigo MARIELA (obstructive sleep apnea) Sick sinus syndrome Peripheral vascular disease Menieres disease Urinary bladder cancer Obesity Gout GERD (gastroesophageal reflux disease) Hypercholesterolemia Surgical History History of abdominal hysterectomy History of esophagogastroduodenoscopy (EGD) S/P cardiac pacemaker procedure Hx of colonoscopy History of cystoscopy S/P MARION-BSO (total abdominal hysterectomy and bilateral salpingo-oophorectomy) History of cataract surgery History of knee replacement History of tonsillectomy History of appendectomy History of cholecystectomy Family History Father Stroke Mother Heart disease Social History Housing: House Alcohol intake: current Alcohol intake frequency: does not drink Patient Tobacco Use Status: Former Tobacco user Tobacco use type: Cigarette e-Cigarette/Vaping Use: Never Used Second Hand Smoke Exposure: No Current occupational status: retired Cognitive needs: No Hearing needs: Yes Vision needs: Yes Review of Systems Const All systems reviewed & are unremarkable except as noted in HPI and below ENT Reports dizziness Card Denies chest pain, Denies chest pain at rest, Denies chest pain with activity, Denies rapid heart rate, Denies pedal edema, Denies edema, Denies leg edema, Denies lightheadedness, Denies palpitations, Denies dyspnea, Denies dyspnea on exertion and Denies orthopnea Resp Denies cough, Denies dyspnea and Denies dyspnea on exertion GI Denies hematochezia and Denies change in stool character Musc Details: ambulates with wheeling walker Denies abnormal gait, Denies limited range of motion, Denies muscle cramps, Denies muscle weakness, Denies numbness, Denies radiating pain into limb, Denies stiffness and Denies tingling Neuro Denies abnormal gait, Reports dizziness, Denies numbness and Denies tingling Endo Denies palpitations Physical Exam Vital Signs: Last Vital Signs Pulse 70 02/25/23 09:02 BP 120/64 02/25/23 09:02 BMI result Body Mass Index 34.3 Const General: cooperative, healthy appearing, comfortable and no acute distress Orientation/consciousness: patient oriented x3 Neck Neck: Yes normal visual inspection Resp Effort & Inspection: normal respiratory effort Auscultation: clear to auscultation bilaterally, no crackles, no rales, no rhonchi and no wheezes Cardio Jugular venous distension: no JVD Rate: regular rate Rhythm: regular rhythm Heart sounds: S1 normal heart sound present, S2 normal heart sound present, no murmurs and no rubs Neuro General: patient oriented x3 Extrem General: Yes normal to inspection, No no pedal edema and No calf tenderness Psych Appearance: grossly normal Mental Status: mental status grossly normal Speech and movement: Normal speech and movement present Office Procedures EKG Details: Today, read by me, A/ V paced rhythm, prolonged AV conduction which is not new, rate 70 [id number], Complete Assessment & Plan Assessment & Plan (1) Preop cardiovascular exam: Code(s): Z01.810 - Encounter for preprocedural cardiovascular examination Plan: Preop for lumpectomy with Dr. Correia on 03/10/2023. No known history of coronary artery disease. No reports of anginal sounding symptoms. Ambulates with a walker, unclear if she can achieve [address] Will check with Dr. Correia regarding type of anesthesia being used. If it is general anesthesia the nuclear stress test will be warranted. Last echocardiogram 03/26/2021 showed EF 60-65%, mild MR, [id number] TR. No signs of heart failure on examination. She does have a pacemaker. Last interrogation in September showed device is functioning normally, battery 2 years. Will do addendum to this note once anesthesia information is known. Aspirin can be held as needed for her surgery. Cardiology follow-up in April with pacemaker interrogation as previously planned (2) Cardiac pacemaker in situ: Comment: Medtronic dual-chamber pacemaker in place Code(s): Z95.0 - Presence of cardiac pacemaker Plan: Dual-chamber Medtronic pacemaker in place. Interrogation done in September. Next office interrogation scheduled for April. She tells me she does not have remote monitoring in use. Will have a new home monitor sent to her home through the [employer] system. (3) Essential hypertension: Code(s): I10 - Essential (primary) hypertension Plan: Well controlled at this time. No medication changes made. Recent labs reviewed noted to have elevation in creatinine. Will enter orders for an updated BMP. (4) Other and unspecified hyperlipidemia: Code(s): E78.5 - Hyperlipidemia, unspecified Plan: [place] LDL goal less than 100. Labs done 08/18/2022 showed LDL 68. Continue simvastatin. Orders: Orders Basic Metabolic Panel Today I10 - Essential (primary) hypertension Coding Level of Care Code Est Pt Level 3 (71221) Diagnoses Preop cardiovascular exam Z01.810 Cardiac pacemaker in situ Z95.0 Essential hypertension I10 Other and unspecified hyperlipidemia E78.5 CPT Codes EKG - CPT: [id number], Complete ([id number]) Time Spent (min) 24
== END 2023-02-25 09:44 | disposition home or self-care (01) ==
PROVIDERS: PCP Internal Medicine; Visit Provider Nurse Practitioner Family
DX: Z01.810 Encounter for preprocedural cardiovascular examination (principal); Z95.0 Presence of cardiac pacemaker; I10 Essential (primary) hypertension; E78.5 Hyperlipidemia, unspecified
CPT/HCPCS: 93010; 99213

== ENCOUNTER → 2023-02-25 08:59 | Outpatient (BNVA) | payer MEDICARE, SELFPAY | PROVIDERS: PCP Internal Medicine; Visit Provider Nurse Practitioner Family | DX: Z01.810 Encounter for preprocedural cardiovascular examination (principal); I10 Essential (primary) hypertension; E78.5 Hyperlipidemia, unspecified; Z95.0 Presence of cardiac pacemaker | CPT/HCPCS: 93005; 99212 ==

== ENCOUNTER 2023-02-26 07:58 | Outpatient (REF) | payer MEDICARE, SELFPAY ==
--- NOTE | ~2023-02-26 | MM_ITS ---
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 COMPARISON: 02/12/2023, 02/01/2023, 01/19/2023. TECHNIQUE NEEDLE LOC: Proper informed consent is obtained from the patient after discussion of the procedure, potential risks and complications, and alternatives including declining the procedure today. Patient was given an opportunity for questions. The patient appeared to understand. The patient consented to the procedure and signed the consent form. GUIDANCE: Digital mammography. APPROACH: Cranio-caudal. TARGET: Open coil clip/mass. ANESTHESIA: carbonated lidocaine 1%: 5 mL. LOCALIZATION SYSTEM: -Live[employer] Tax LOCallizer Wire-Free Guidance System with 12g needle applicator. -Length: 10 cm. -RADIOFREQUENCY TAG: ID # [id number] DERMATOTOMY: Not needed. RF Tag ID confirmed with LOCalizer Guidance System prior to placement. The skin is prepped and local anesthesia administered. The needle is positioned and RFID tag deployed. Final images demonstrate the LOCalizer RF tag to reside immediately superior to the biopsied mass, and immediately abutting the lateral margin. The open coil clip is noted to reside 3 mm superior to the RF ID clip. Please refer to the tagged and labeled images for confirmation. The patient tolerated the procedure well and had no immediate complications. Dressing placed and home instructions reviewed. MM/MM needle loc LT IMPRESSION: -Status post left breast RFID localization.
[2023-02-26] MEDS: Lidocaine HCl 1 % 20 ML VIAL 5 ML SUBCUT (09:17)
[2023-02-26] MEDS: Sodium Bicarbonate 8.4% 50 MEQ/50 ML VIAL SUBCUT (09:18)
== END 2023-02-26 07:59 | disposition home or self-care (01) ==
LOC: HO.MAMMO 07:58
PROVIDERS: PCP Internal Medicine; Visit Provider Surgery
DX: C50.412 Malignant neoplasm of upper-outer quadrant of left female breast (principal)
CPT/HCPCS: 19281; C1819

== ENCOUNTER → 2023-03-01 08:25 | Outpatient (REF) | payer MEDICARE, SELFPAY ==
--- NOTE | ~2023-03-01 | NM_ITS ---
Lexiscan Myocardial perfusion study Indication: Preoperative cardiac evaluation Technique: The patient was brought in for a Lexiscan perfusion study on 03/01/2023 and was injected 0.4 mg of Lexiscan intravenously. Within a minute of this injection 30 mCi of sestamibi was given intravenously. Images were obtained using the SPECT gamma camera interlaced with the gating device. Images were obtained in supine position. Resting perfusion study was performed on 03/03/2023. Patient was administered 30 mCi of sestamibi intravenously at rest. Images were then obtained in supine position. Images were processed with the software and compared side to side in short axis, horizontal long axis and vertical long axis views. Total DLP 83mGy-cm. Findings: Raw acquisition reviewed. The stress perfusion study showed no significant perfusion defects. Images were reprocessed multiple times due to scaling artifact from a bright spot from subdiaphragmatic uptake.. The gated study shows normal LV systolic function with calculated LVEF of 71%. LV cavity is normal in size. The gated study shows normal wall thickening and contraction of segments. Resting study shows no significant perfusion defects. Gating at rest reveals normal wall motion with ejection fraction at 74%. The findings are consistent with no clear reversible or fixed perfusion defects. NM/NM cardiolite stress test Impression: 1. Myocardial perfusion imaging study shows probably normal myocardial perfusion. 2. Gated LVEF is 74% rest at 71% during stress and 74% during rest. 3. Transient ischemic dilatation not present. EKG component of the test reported separately.
--- NOTE | 2023-03-01 08:31 | CA_ITS ---
Acquisition Time: 2023-03-01 08:46:04 Total Exercise Time: 00:02:00 Test Indications: Pre-Op Evaluation Medications: SEE H Protocol: LEXISCAN Max HR: 063 BPM 47% of Pred: 134 BPM Max BP: 120/058 mmHG Max Work Load: 1.0 METS Pharmacological stress test with Lexiscan injection while sitting, without anginal symptoms, without arrhythmias, with normotensive response to injection, with nondiagnsoitic EKGs. Nuclear images pending. Test reviewed with Dr. Youssef Referred By: Anel Aburto Overread By: Tran Wick
== END ==
LOC: HO.CARD 08:25
PROVIDERS: PCP Internal Medicine; Visit Provider Nurse Practitioner Family
DX: Z01.810 Encounter for preprocedural cardiovascular examination (principal); R68.89 Other general symptoms and signs
CPT/HCPCS: 78452; 93017; A9500; J0280; J2785

== ENCOUNTER → 2023-03-01 08:31 | Outpatient (BNV) | payer MEDICARE, SELFPAY | PROVIDERS: PCP Internal Medicine; Visit Provider Nurse Practitioner | DX: Z01.810 Encounter for preprocedural cardiovascular examination (principal); R68.89 Other general symptoms and signs | CPT/HCPCS: 78452; 93016; 93018 ==

== ENCOUNTER 2023-03-10 06:51 | Day surgery (SDC) | payer MEDICARE, SELFPAY ==
[2023-03-08 12:03] VITALS: BMI 33.6
--- NOTE | 2023-03-09 09:11 | P.CONAN_ITS ---
Documented by User: Sade Albarado NP 03/09/23 09:14 HPI - Anesthesia Eval Consult details Narrative: 87yo F for Left Breast Lumpectomy w/LOCalizer with [place] Node Biopsy Pacer in situ. Medtronic rep scheduled. Cardiac cleared [facility] Active Problems Active Problems: All Active Problems (Updated 03/08/23 @ 12:01 by Sakina Gann RN) Preop cardiovascular exam (Acute) Breast cancer, left (Acute) Abnormal mammogram of left breast (Acute) Abnormal ultrasound of breast (Acute) Screening for breast cancer (Acute) Unintentional weight loss (Acute) Dysphagia (Acute) Esophageal dysmotility (Acute) Renal insufficiency (Acute) Complicated urinary tract infection (Acute) Eczema (Acute) Constipation (Acute) Lymphedema of both lower extremities (Acute) Numbness of left hand (Acute) Other and unspecified hyperlipidemia (Acute) Essential hypertension (Acute) Normally functioning cardiac pacemaker present (Acute) Adult general medical exam (Acute) Post-menopausal (Acute) Tinea corporis (Acute) Left wrist pain (Acute) Rosacea (Acute) Impaired fasting blood sugar (Acute) Vitamin B 12 deficiency (Acute) Cardiac pacemaker in situ (Acute) AV block (Acute) Peripheral vascular disease (Acute) Urinary bladder cancer (Acute) Obesity (Acute) Gout (Acute) GERD (gastroesophageal reflux disease) (Acute) Hypercholesterolemia (Acute) Past Medical History Medical History Chronic renal insufficiency HTN (hypertension) Cardiac pacemaker in situ AV block Leg edema Screening for diabetes mellitus On beta jake at home Arthritis Vertigo MARIELA (obstructive sleep apnea) Sick sinus syndrome Peripheral vascular disease Menieres disease Urinary bladder cancer Obesity Gout GERD (gastroesophageal reflux disease) Hypercholesterolemia Family History Family History Father Stroke Mother Heart disease Family history of problems with anesthesia: No Surgical History Surgical History History of esophagogastroduodenoscopy (EGD) S/P cardiac pacemaker procedure Hx of colonoscopy History of cystoscopy S/P MARION-BSO (total abdominal hysterectomy and bilateral salpingo-oophorectomy) History of cataract surgery History of knee replacement History of tonsillectomy History of appendectomy History of cholecystectomy History of Problems with Anesthesia: No Social History Social History Housing: House Are you a primary intensive care medicine specialist to a significant other at home: No Do you presently have visiting nurse or other home services: No Alcohol intake: current Alcohol intake frequency: does not drink Patient Tobacco Use Status: Former Tobacco user Quit Date: age 57 Tobacco use type: Cigarette e-Cigarette/Vaping Use: Never Used Second Hand Smoke Exposure: No Use of substances other than those prescribed or required for medical reasons: No Have you been hit, kicked, punched, or otherwise hurt by someone within the past year? If so, by whom?: No Are you DNR?: Yes Advance Directives Information Provided: Yes (as above noted) Recently lost weight without trying: No Eating poorly because of decreased appetite: No Nutrition Risks: Surgical patient >75years Poor oral hygiene: No (upper & lower full denture) Current occupational status: retired Cognitive needs: No Hearing needs: Yes Vision needs: Yes Meds Allergies Allergy/AdvReac Type Severity Reaction Status Date / Time No Known Allergies Allergy Verified 03/10/23 07:27 [No Known Allergies*] Home Medications Medication Instructions Recorded Confirmed Last Taken Type aspirin 81 mg tablet,delayed 81 mg PO DAILY 03/11/20 03/10/23 03/09/23 History release (Adult Low Dose Aspirin) cholecalciferol (vitamin D3) 25 25 mcg PO DAILY 03/11/20 03/08/23 Unknown History mcg (1,000 unit) capsule coenzyme Q10 100 mg capsule (Co 100 mg PO DAILY 03/11/20 03/08/23 Unknown History Q-10) meclizine 25 mg tablet 25 mg PO DAILY 03/11/20 03/08/23 Unknown History polyethylene glycol 3350 17 gram 17 g PO DAILY PRN Constipation 02/24/23 03/08/23 Unknown History oral powder packet (Miralax) propylene glycol 0.6 % eye drops 1 drp ophthalmic (eye) DAILY PRN 02/24/23 03/08/23 Unknown History (Systane Balance) Dry Eyes amlodipine 5 mg tablet 5 mg PO DAILY 03/08/23 03/10/23 03/10/23 History gabapentin 300 mg capsule 300 mg PO BEDTIME 03/08/23 03/08/23 Unknown History Exam Height,Weight and Vital Signs: Height 5 ft 1 in Weight 80.739 kg Pertinent Lab Results Pertinent Lab Results: Laboratory Tests 11/19/22 01/05/23 12:35 12:03 WBC 8.4 Hgb 13.2 Hct 41.9 Plt Count 411 H Sodium 141 Potassium 3.4 Chloride 99 Carbon Dioxide 31 H BUN 33 H Creatinine 1.63 H Narrative Narrative: EKG 02/2023 A/ V paced rhythm, prolonged AV conduction which is not new, rate 70 NM cardiolite stress test 02/2023 Impression: 1. Myocardial perfusion imaging study shows probably normal myocardial perfusion. 2. Gated LVEF is 74% rest at 71% during stress and 74% during rest. 3. Transient ischemic dilatation not present. EKG component of the test reported separately. Assessment and Plan Assessment Anesthesia Assessment: Chart Reviewed Final Anesthetic Review Family History of Problems with Anesthesia: No History of Problems with Anesthesia: No Documented by User: Candice Denis MD 03/10/23 07:50 [facility] Past Medical History Medical History Chronic renal insufficiency HTN (hypertension) Cardiac pacemaker in situ AV block Leg edema Screening for diabetes mellitus On beta jake at home Arthritis Vertigo MARIELA (obstructive sleep apnea) Sick sinus syndrome Peripheral vascular disease Menieres disease Urinary bladder cancer Obesity Gout GERD (gastroesophageal reflux disease) Hypercholesterolemia Family History Family History Father Stroke Mother Heart disease Surgical History Surgical History History of esophagogastroduodenoscopy (EGD) S/P cardiac pacemaker procedure Hx of colonoscopy History of cystoscopy S/P MARION-BSO (total abdominal hysterectomy and bilateral salpingo-oophorectomy) History of cataract surgery History of knee replacement History of tonsillectomy History of appendectomy History of cholecystectomy Social History Social History Housing: House Are you a primary intensive care medicine specialist to a significant other at home: No Do you presently have visiting nurse or other home services: No Alcohol intake: current Alcohol intake frequency: does not drink Patient Tobacco Use Status: Former Tobacco user Quit Date: age 57 Tobacco use type: Cigarette e-Cigarette/Vaping Use: Never Used Second Hand Smoke Exposure: No Use of substances other than those prescribed or required for medical reasons: No Have you been hit, kicked, punched, or otherwise hurt by someone within the past year? If so, by whom?: No Are you DNR?: Yes Advance Directives Information Provided: Yes (as above noted) Recently lost weight without trying: No Eating poorly because of decreased appetite: No Nutrition Risks: Surgical patient >75years Poor oral hygiene: No (upper & lower full denture) Current occupational status: retired Cognitive needs: No Hearing needs: Yes Vision needs: Yes Meds Allergies Allergy/AdvReac Type Severity Reaction Status Date / Time No Known Allergies Allergy Verified 03/10/23 07:27 [No Known Allergies*] Home Medications Medication Instructions Recorded Confirmed Last Taken Type aspirin 81 mg tablet,delayed 81 mg PO DAILY 03/11/20 03/10/23 03/09/23 History release (Adult Low Dose Aspirin) cholecalciferol (vitamin D3) 25 25 mcg PO DAILY 03/11/20 03/08/23 Unknown History mcg (1,000 unit) capsule coenzyme Q10 100 mg capsule (Co 100 mg PO DAILY 03/11/20 03/08/23 Unknown History Q-10) meclizine 25 mg tablet 25 mg PO DAILY 03/11/20 03/08/23 Unknown History polyethylene glycol 3350 17 gram 17 g PO DAILY PRN Constipation 02/24/23 03/08/23 Unknown History oral powder packet (Miralax) propylene glycol 0.6 % eye drops 1 drp ophthalmic (eye) DAILY PRN 02/24/23 1 05/08/22 Unknown History (Systane Balance) Dry Eyes amlodipine 5 mg tablet 5 mg PO DAILY 03/08/23 03/10/23 03/10/23 History gabapentin 300 mg capsule 300 mg PO BEDTIME 03/08/23 03/08/23 Unknown History Exam Airway Mallampati Class: II TM Dist: >3cm Neck ROM: Limited Denture: Upper and Lower Loose/Missing/Broken Teeth: Yes, Upper and Lower Heart: RRR Lungs: CTA Assessment and Plan Assessment Anesthesia Assessment: Anesthesia Plan Discussed and Chart Reviewed Final Anesthetic Review NPO: Yes ASA Class: III Final Preanesthetic Review: Meds/Allgs Chart Reviewed, Consent Obtained/Reviewed and Anes Risks/Benef Reviewed Patient Risk: Intermediate Procedure Risk: Low Anesthetic Plan Anesthetic Plan: GA Disposition: Standard PACU
[2023-03-10] VITALS (9 sets, daily range): BP systolic 97–140; BP diastolic 42–65; PULSE 50–76; RESP 14–18; TEMP 36.1–36.2; O2SAT 94–100
--- NOTE | ~2023-03-10 | MM_ITS ---
EXAMINATION: NEEDLE LOCALIZATION SPECIMEN FROM THE LEFT BREAST CLINICAL INFORMATION: Left breast invasive carcinoma grade 3 COMPARISON: RFID placement 02/26/2023 TECHNIQUE: Single view of the surgical specimen was obtained. FINDINGS: Solitary radiograph of the surgical specimen demonstrates the presence of the RF ID clip, open coil biopsy clip, and irregular mass contained within the left aspect of the specimen. MM/MM surgical specimen IMPRESSION: Satisfactory excision of the RFID clip, biopsy clip, and mass lesion. These findings were communicated to the surgeon in the OR at the time of specimen radiography.
[2023-03-10] MEDS: Lactated Ringers 1,000 ML 100 ML IVCONT (07:27)
--- NOTE | 2023-03-10 09:04 | MHC.SHP ---
Pre-Procedural Eval Section A Date of Service: 03/10/23 The patient is an INPATIENT: No Changes since office visit: Yes Patient answered all questions; No Cold of Flu in the past 2 weeks, No New Medical Problems and No Changes in Medication The History & Physical has been completed within 30 days and I have reviewed it.: Yes Section B Chief Complaint: Malignant neoplasm of upper-outer quadrant of left Allergies: Allergies Allergy/AdvReac Type Severity Reaction Status Date / Time No Known Allergies Allergy Verified 03/10/23 07:27 [No Known Allergies*] Plan Diagnosis/Plan: Unchanged I have reviewed the history and physical and performed a pertinent physical examination on my patient. No changes have occurred unless specified. Time Spent With Patient Time: Total time managing care of this patient today ____ minutes.
--- NOTE | 2023-03-10 10:47 | P.OP_ITS ---
Operative Note Operative Note Date of Service: 03/10/23 Narrative: Preoperative diagnosis: Invasive ductal carcinoma left breast Postoperative diagnosis:same Procedure: Left breast lumpectomy with LOCalizer, left axillary sentinel node biopsy Surgeon: Lalo Correia MD Steam Roller Operator: Pratima Carpio PA-C Anesthesia:general LMA Indications for procedure: 87-year-old female patient presenting with a palpable mass in the left breast at the upper outer quadrant measuring approximately 2 cm in diameter. Subsequent needle core biopsy revealed invasive ductal carcinoma with lobular features, ER / KY positive, HER2 Shen negative, Ki-67 high. She presents today for left breast lumpectomy with sentinel node biopsy. She previously underwent radiofrequency tag placement at the [facility]. Operative findings: Specimen x-ray confirmed the marking clip and RF tag within the specimen. Gross pathology confirmed tumor within the specimen with negative margins. [place] node revealed 2 areas of magnetic activity using the Mag trace marker. Specimen: Left breast lumpectomy, sentinel node 1, sentinel node 2. Estimated blood loss: 10 mL Complications: none Procedure details: patient was brought to the OR placed in a supine position. . 2 mL of Mag trace was infiltrated below the nipple areola and the left breast massaged for approximately 5 minutes. After administering general anesthesia patient's left breast was prepped with ChloraPrep and draped in a sterile fashion. A surgical time-out was called the consent confirmed. Patient received preoperative antibiotics and Venodyne boots were in place . Local anesthesia was then infiltrated in the upper outer quadrant over the palpable mass. The [employer] RF reader was then used to identify the site of the clip. Curvilinear incision was made in the upper outer quadrant carried out through subcutaneous tissue. Superior and inferior skin flaps were then created with electrocautery. A core of tissue around the palpable mass and RF tag was then created extending down to chest wall. Lesion was then dissected off the chest wall. Specimen was marked with a long suture in the left lateral margin. Short suture was placed in the superior margin and a loop suture placed in the deep margin. A specimen x-ray was performed in the OR and confirmed the marking clip and RF tag within the specimen. This was then sent to pathology for gross pathology. Attention was then directed to the axilla. The Mag reader was then used to examine the axilla. Area of activity was noted in the low axilla. This was then dissected and a small node determined to be the site of activity. This was grasped with a plastic Allis clamp. Electrocautery was then used to dissect the specimen. Magnetic activity was determined to be within the specimen. This was sent as sentinel node 1. Additional activity was also noted in the low axilla and once again this was grasped with an Allis clamp. This was then dissected free and once again checked for Magnetic activity. Once this was confirmed this was sent as sentinel node 2. No further activity could be identified in the axilla. No palpable nodes were appreciated within the axilla. No dark color nodes could be identified within the axilla. Wounds were checked for hemostasis. Free ties of 3-0 Polysorb was used for hemostasis. Wounds were then thoroughly irrigated with saline solution and suctioned dry. The clavipectoral fascia was closed using interrupted 3-0 Polysorb sutures. deep breast tissue was then reapproximated using interrupted 3-0 Polysorb sutures. Dermis was reapproximated using interrupted 3-0 Polysorb sutures. Skin was closed using 4-0 Polysorb suture. Wounds were dressed with Steri-Strips, 2 x 2 gauze and Tegaderm. Patient tolerated the procedure well was transferred to PACU in stable condition. Sponge, instrument, needle counts reported as correct. Breast [place] Node Biopsy Substrate(s) used for sentinel node biopsy in the non-neoadjuvant setting: Dye Substrate(s) used for sentinel node biopsy in the neoadjuvant setting: N/A All colored nodes or non-colored nodes present at the end of a dye filled lymphatic channel were removed, if dye was used as the substrate for localization: Yes All significantly radioactive nodes were removed, if radionuclide was used as the substrate for localization: N/A All palpably suspicious nodes were removed, if present: Yes If clips were placed in pathology-involved nodes, those nodes were identified and removed: N/A General Surg. - Synoptic Notes Breast [place] Node Biopsy Substrate(s) used for sentinel node biopsy in the non-neoadjuvant setting: Dye Substrate(s) used for sentinel node biopsy in the neoadjuvant setting: N/A All colored nodes or non-colored nodes present at the end of a dye filled lymphatic channel were removed, if dye was used as the substrate for localization: Yes All significantly radioactive nodes were removed, if radionuclide was used as the substrate for localization: N/A All palpably suspicious nodes were removed, if present: Yes If clips were placed in pathology-involved nodes, those nodes were identified and removed: N/A
== END 2023-03-10 12:30 | disposition home or self-care (01) ==
PROVIDERS: PCP Internal Medicine; Visit Provider Surgery
PROC: (CPT 19301; principal; 2023-03-10 08:40)
DX: C50.412 Malignant neoplasm of upper-outer quadrant of left female breast (principal); Z17.0 Estrogen receptor positive status [ER+]; Z80.3 Family history of malignant neoplasm of breast; Z85.51 Personal history of malignant neoplasm of bladder; I49.5 Sick sinus syndrome; I44.30 Unspecified atrioventricular block; Z95.0 Presence of cardiac pacemaker; E78.00 Pure hypercholesterolemia, unspecified; I73.9 Peripheral vascular disease, unspecified; G47.33 Obstructive sleep apnea (adult) (pediatric); Z79.82 Long term (current) use of aspirin; Z79.899 Other long term (current) drug therapy; Z98.890 Other specified postprocedural states; Z87.891 Personal history of nicotine dependence
CPT/HCPCS: 19301; 38525; 38900; 88305; 88307; 88329; 88342; J0131; J0690; J1100; J2371; J2405; J2704; J2795; J3010

== ENCOUNTER → 2023-03-10 06:51 | Outpatient (BNV) | payer MEDICARE, SELFPAY | PROVIDERS: PCP Internal Medicine; Visit Provider Surgery | DX: C50.412 Malignant neoplasm of upper-outer quadrant of left female breast (principal) | CPT/HCPCS: 19301; 38525; 38900 ==

== ENCOUNTER 2023-03-18 10:28 | Outpatient (AMB) | payer MEDICARE, SELFPAY ==
--- NOTE | 2023-03-18 10:30 | MHC.OFFVIS ---
Intake Vital Signs 03/18/23 10:42 Height 5 ft 1 in Weight 177 lb 11.081 oz BMI 33.6 BP 112/62 Blood Pressure Location Lt brachial Position Sitting Intake Visit Reasons: S/P Lt breast lumpectomy w/seed and SN bx Intake Note: Patient is seen in office for post op assessment post left breast lumpectomy. Pt c/o: denies any concerns post surgery Medical Coding Instructor Required: No Accompanied by: Other Relationship Allergies No Known Allergies [No Known Allergies*] Allergy (Verified 03/18/23 10:42) Medication List - Last Reconciled 03/18/23 by Lalo Correia MD amlodipine 5 mg PO DAILY aspirin (Adult Low Dose Aspirin) 81 mg PO DAILY cholecalciferol (vitamin D3) 25 mcg PO DAILY coenzyme Q10 (Co Q-10) 100 mg PO DAILY cyanocobalamin (vitamin B-12) 1,000 mcg PO DAILY gabapentin 300 mg PO BEDTIME hydrochlorothiazide 25 mg PO DAILY meclizine 25 mg PO DAILY metoprolol succinate ER 50 mg PO DAILY 90 days nystatin 1 appl topical QID 90 days omeprazole 20 mg PO DAILY oxycodone 5 mg PO Q6H PRN polyethylene glycol 3350 (Miralax) 17 grams PO DAILY PRN propylene glycol 0.6% (Systane Balance) 1 drp ophthalmic (eye) DAILY PRN simvastatin 20 mg PO BEDTIME HPI HPI Comments History of Present Illness Details 87-year-old female patient presenting with a recent mammogram dated 01/19/2023 with follow-up images obtained 02/01/2023 which revealed a suspicious density in the left breast at the upper outer quadrant. Subsequent workup with ultrasound at the upper outer quadrant of left breast revealed a 14 x 11 x 9 mm irregular hypoechoic mass in the 02:00 o'clock region of the left breast, 7 cm from the nipple. This was highly suggestive of malignancy and ultrasound-guided biopsy recommended (BI-RADS 5). She denies a prior history of breast problems or breast surgery. She denies any ongoing breast symptoms at this time. Her family history is positive for a sister having breast cancer. She is G0. She underwent an ultrasound-guided core biopsy at the [facility] on 10/12/2022. 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 she returns today 1 week following left breast lumpectomy with localizer, sentinel node biopsy using Magtrace. She tolerated the procedure well and denies any ongoing breast symptoms. [facility] Medical History Chronic renal insufficiency HTN (hypertension) Cardiac pacemaker in situ AV block Leg edema Screening for diabetes mellitus On beta jake at home Arthritis Vertigo MARIELA (obstructive sleep apnea) Sick sinus syndrome Peripheral vascular disease Menieres disease Urinary bladder cancer Obesity Gout GERD (gastroesophageal reflux disease) Hypercholesterolemia Surgical History History of lumpectomy of left breast (03/10/23) History of esophagogastroduodenoscopy (EGD) S/P cardiac pacemaker procedure Hx of colonoscopy History of cystoscopy S/P MARION-BSO (total abdominal hysterectomy and bilateral salpingo-oophorectomy) History of cataract surgery History of knee replacement History of tonsillectomy History of appendectomy History of cholecystectomy Family History Father Stroke Mother Heart disease Social History Housing: House Are you a primary housekeeper caregiver to a significant other at home: No Do you presently have visiting nurse or other home services: No Alcohol intake: current Alcohol intake frequency: does not drink Patient Tobacco Use Status: Former Tobacco user Quit Date: age 57 Tobacco use type: Cigarette e-Cigarette/Vaping Use: Never Used Second Hand Smoke Exposure: No Current occupational status: retired Cognitive needs: No Hearing needs: Yes Vision needs: Yes Physical Exam Vital Signs: Last Vital Signs BP 112/62 03/18/23 10:42 BMI result Body Mass Index 33.6 Const General: no acute distress Nutritional Appearance: well nourished Orientation/consciousness: patient oriented x3 Chest Other: Left breast with a well-healed incision in the upper outer quadrant with intact Steri-Strips. No hematoma or seroma identified. Resp Effort & Inspection: normal respiratory effort, no audible wheezes, no cough and no respiratory distress Neuro General: patient oriented x3 Extrem General: No edema Assessment & Plan Assessment & Plan (1) Breast cancer, left: Comment: 02/2023 Invasive with lobular and ductal features, 03/10/2023 L breast lumpectomy Code(s): C50.912 - Malignant neoplasm of unspecified site of left female breast Qualifiers: Breast location: upper outer quadrant of breast Estrogen receptor status: unspecified Patient sex: female Qualified Code(s): C50.412 - Malignant neoplasm of upper-outer quadrant of left female breast Plan 87-year-old female patient returning 1 week after left breast lumpectomy with sentinel node biopsy. Pathology confirmed invasive ductal carcinoma with lobular features, ER IA positive, HER2 Shen negative. One sentinel node was negative for breast cancer. I recommended further evaluation by Oncology. She will return in 1 month follow-up examination. She should call sooner for any new concerns. Orders: Referrals Hematology & Oncology Referral C50.912 - Malignant neoplasm of unspecified site of left female breast Coding Level of Care Code Global (98523) Diagnoses Malignant neoplasm of upper-outer quadrant of left female breast, unspecified estrogen receptor status C50.412 Breast location: upper outer quadrant of breast Estrogen receptor status: unspecified Patient sex: female
[2023-03-18 10:42] VITALS: BP 112/62; BMI 33.6
== END 2023-03-18 10:54 | disposition home or self-care (01) ==
PROVIDERS: PCP Internal Medicine; Visit Provider Surgery
DX: C50.412 Malignant neoplasm of upper-outer quadrant of left female breast (principal)
CPT/HCPCS: 99024

== ENCOUNTER → 2023-03-18 10:28 | Outpatient (BNVA) | payer MEDICARE, SELFPAY | PROVIDERS: PCP Internal Medicine; Visit Provider Surgery | DX: C50.412 Malignant neoplasm of upper-outer quadrant of left female breast (principal) | CPT/HCPCS: 99212 ==

== ENCOUNTER 2023-03-25 03:13 | Inpatient (IN) | payer MEDICARE, SELFPAY ==
[2023-03-25] VITALS (8 sets, daily range): BP systolic 108–128; BP diastolic 44–72; PULSE 60–82; RESP 12–18; TEMP 36.3–37.2; O2SAT 95–98; BMI 34.7; BMI 33.4
--- NOTE | 2023-03-25 | ECG_ITS ---
Test Reason : FALL Blood Pressure : / mmHG Vent. Rate : 063 BPM Atrial Rate : 063 BPM P-R Int : 400 ms QRS Dur : 168 ms QT Int : 472 ms P-R-T Axes : 000 214 030 degrees QTc Int : 483 ms Atrial-sensed ventricular-paced rhythm with prolonged AV conduction Abnormal ECG When compared with ECG of 11-DEC-2015 15:27, No significant changes seen Referred By: Generic ED Physician Electronically Signed By:Jamil Youssef
--- NOTE | ~2023-03-25 | XR_ITS ---
EXAMINATION: XR CHEST CLINICAL INFORMATION: Fall. Weakness. COMPARISON: CT chest dated 02/02/2023 TECHNIQUE: Frontal view of the chest was obtained. FINDINGS: Stably positioned dual-lead pacemaker. Normal symmetric lung volumes. No parenchymal consolidation. No pleural effusion. No pneumothorax. Cardiomediastinal silhouette and pulmonary vascularity are within normal limits. No acute osseous abnormalities. XR/XR chest 1V IMPRESSION: No acute findings.
--- NOTE | ~2023-03-25 | CT_ITS ---
EXAMINATION: CT HEAD WITHOUT CONTRAST CLINICAL INFORMATION: Fall. Head injury. COMPARISON: None available. TECHNIQUE: Contiguous axial imaging was performed from the skull base to vertex without intravenous administration of contrast. This CT examination was performed using dose optimization techniques as appropriate, variously including the following: *Automated exposure control *Adjustment of mA and/or kV according to patient size (this includes techniques or standardized protocols for targeted exams where dose is matched to indication/reason for exam; i.e. extremities or head) *Use of iterative reconstruction technique DLP: 626 mGy-cm FINDINGS: There is no evidence of acute intracranial hemorrhage or territorial infarction. No abnormal mass effect or midline shift is seen. [place] to white matter differentiation is well preserved. No extra-axial fluid collections are identified. No hydrocephalus. Proportional prominence of the ventricles and sulcal spaces is consistent with mild volume loss. Small chronic right cerebellar infarct. No acute osseous or soft tissue abnormality. Scattered secretions throughout the paranasal sinuses. Mastoid air cells are clear. CT/CT head/brain wo IV con IMPRESSION: No acute intracranial pathology.
--- NOTE | ~2023-03-25 | XR_ITS ---
EXAMINATION: XR BILATERAL HIPS WITH AP PELVIS CLINICAL INFORMATION: Fall with left hip pain COMPARISON: None available. TECHNIQUE: AP view of the pelvis and single views of each hip were obtained. FINDINGS: No fracture. Hip joint spaces are maintained. Alignment is anatomic. Sacroiliac joints and pubic symphysis are normal. No abnormal soft tissue calcifications. A staple is noted projecting over the left pelvis. Degenerative changes are noted in the lower lumbosacral spine. XR/XR hip BI w PEL1V IMPRESSION: No evidence of acute traumatic injury to the pelvis or hips.
--- NOTE | ~2023-03-25 | XR_ITS ---
EXAMINATION: XR FEMUR, LEFT CLINICAL INFORMATION: Fall. Concern for fracture. COMPARISON: None available. TECHNIQUE: AP and lateral views of the left femur were obtained. FINDINGS: The bone mineralization is within normal limits. 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 There is no acute fracture. Arteriovascular calcification is noted. The soft tissues are otherwise grossly unremarkable. XR/XR femur LT 2V IMPRESSION: No acute osseous abnormality.
--- NOTE | 2023-03-25 03:36 | PC.NURSE ---
pt biba from home reporting 2 falls yesterday. pt reports falling out of bed and then tripping and falling after that. pt denies head strike and LOC. pt reports today she ambulated to bathroom with unsteady weak gait and reports being stuck on toilet for one hour before calling for help. pt reporting bilateral 6/10 lower extremity pain. pt reports hx of breast surgery recently, steri strips in place on left breast. when changing pt over pt noted to have bruise to left hip and large scratch to the left side abdomen that pt reports is from previous fall.
--- NOTE | 2023-03-25 04:10 | MHC.EDTECH ---
Patient was biba by ems from home ,vitals taken ,Patient was hooked up to awake overnight monitor ,pt was change into hospital gown ,ekg taken and was read by Provider ,blood drawn and sent to lab ,Call arita within Pt reach .
[2023-03-25 04:11] LABS: MANUAL DIFF FLAG NO
[2023-03-25 04:13] LABS: Basophils Absolute Auto 0.1 X10*3/uL (0.0-0.2); Basophils Percent Auto 0.8 % (0-2); Eosinophils Absolute Auto 0.2 X10*3/uL (0.0-0.4); Eosinophils Percent Auto 1.7 % (0-4); Hematocrit 37.5 % (37.0-47.0); Hemoglobin 12.4 g/dl (12.0-16.0); Imm Gran Abs Auto 0.03 X10*3/uL (0.00-0.03); Imm Gran Pct Auto 0.3 % (0.0-0.4); Lymphocytes Absolute Auto 0.8 X10*3/uL (1.2-4.9); Lymphocytes Percent Auto 9.3 % (20-40); Mean Corpuscular HGB Conc 33.1 g/dl (31.0-35.0); Mean Corpuscular Hemoglobin 28.8 pg (27.0-33.0); Mean Platelet Volume 9.2 fL (9.4-12.3); Monocytes Absolute Auto 1.2 X10*3/uL (0.1-1.2); Neutrophils Absolute Auto 6.5 x10*3/uL (2.0-8.3); Neutrophils Percent Auto 73.9 % (45-73); Platelet Count 289 X10*3/uL (160-400); Red Blood Count 4.31 X10*6/uL (4.20-5.50); Red Cell Distribution Width 13.5 % (11.0-16.0); White Blood Count 8.8 X10*3/uL (4.8-10.8)
[2023-03-25 04:27] LABS: Alanine Aminotransferase 27 U/L (0-31); Albumin Level 3.5 g/dL (3.5-5.0); Alkaline Phosphatase 116 U/L (39-117); Anion Gap 14 (12-20); Aspartate Amino Transferase 127 U/L (5-31); Bilirubin Total 0.4 mg/dL (0.0-1.0); Blood Urea Nitrogen 31 mg/dL (9-16); Calcium 8.7 mg/dL (8.4-10.2); Carbon Dioxide 28 mmol/L (22-29); Chloride 95 mmol/L (96-108); Estimated Glomerular Filt Rate 29; Glucose Random 119 mg/dL (60-115); Potassium 3.1 mmol/L (3.3-5.1); Sodium 134 mmol/L (135-145); Total Protein 7.1 g/dL (6.5-8.0)
[2023-03-25 04:34] LABS: Troponin-I High Sensitivity 22.4 ng/L (<3.5-17.0)
--- NOTE | 2023-03-25 05:18 | ED_ITS ---
HPI - Fall General Chief Complaint: Fall Stated Complaint: difficulty ambulating Time Seen by Provider: 03/25/23 05:04 Source: patient Mode of arrival: EMS Limitations: no limitations History of Present Illness HPI Narrative: 87-year-old female history of chronic renal insufficiency, hypertension, pacemaker, leg edema, vertigo, MARIELA, peripheral vascular disease, bladder cancer, obesity, GERD, hypercholesterolemia who presents emergency department for evaluation of weakness and multiple falls over the past 2 days. Patient states that yesterday morning she got up at 02:00 hours to go to the bathroom. She states that when she stood up from the bed her legs felt wobbly and she fell in the bedroom. She did hit her head but does not believe that she lost consciousness. She was able to activate her lifeline and EMS responded. She states that they were able to help her up, her legs felt wobbly but she did not want to be transported to the hospital. She states that yesterday morning she may was walking into her living room to get to her recliner when again she felt weak and fell. Again she called EMS and refuse transport. This morning, prior to coming to the emergency department the patient got up to go to the bathroom. She states that she was sitting on the toilet and was unable to get up secondary to weakness. She activated her lifeline was brought to emergency department for evaluation. The patient states since the fall she has been having pain in her lower back and legs. She states she has also been very weak. She denied fever, chills, sore throat, cough, chest pain, shortness of breath, nausea, vomiting, diarrhea. She has not noticed any black stools or tarry stools. She denied frequency, urgency, dysuria abdominal pain. Related Data Home Medications Medication Instructions Recorded Confirmed aspirin 81 mg tablet,delayed 81 mg PO DAILY 03/11/20 03/18/23 release (Adult Low Dose Aspirin) cholecalciferol (vitamin D3) 25 25 mcg PO DAILY 03/11/20 03/18/23 mcg (1,000 unit) capsule coenzyme Q10 100 mg capsule (Co 100 mg PO DAILY 03/11/20 03/18/23 Q-10) meclizine 25 mg tablet 25 mg PO DAILY 03/11/20 03/18/23 polyethylene glycol 3350 17 gram 17 g PO DAILY PRN Constipation 02/24/23 03/18/23 oral powder packet (Miralax) propylene glycol 0.6 % eye drops 1 drp ophthalmic (eye) DAILY PRN 02/24/23 03/18/23 (Systane Balance) Dry Eyes amlodipine 5 mg tablet 5 mg PO DAILY 03/08/23 03/18/23 gabapentin 300 mg capsule 300 mg PO BEDTIME 03/08/23 03/18/23 Previous Rx's Medication Instructions Recorded omeprazole 20 mg capsule,delayed 20 mg PO DAILY #90 caps 06/01/22 release metoprolol succinate 50 mg 50 mg PO DAILY 90 days #90 tabs 11/03/22 tablet,extended release 24 hr simvastatin 20 mg tablet 20 mg PO BEDTIME #90 tabs 11/03/22 cyanocobalamin (vitamin B-12) 1,000 mcg PO DAILY #90 caps 01/27/23 1,000 mcg capsule nystatin 100,000 unit/gram topical 1 appl topical QID 90 days #3 grams 01/27/23 powder hydrochlorothiazide 25 mg tablet 25 mg PO DAILY #90 tabs 02/15/23 oxycodone 5 mg tablet 5 mg PO Q6H PRN pain (scale score 03/10/23 7-10) #15 tabs Allergies Allergy/AdvReac Type Severity Reaction Status Date / Time No Known Allergies Allergy Verified 03/25/23 03:24 [No Known Allergies*] Review of Systems 2 Review of Systems: Yes all other systems are reviewed and are negative [facility] Past Medical History [facility] Narrative: Social history: The patient lives alone. She denies tobacco, alcohol and drug use. Medical History Chronic renal insufficiency HTN (hypertension) Cardiac pacemaker in situ AV block Leg edema Screening for diabetes mellitus On beta jake at home Arthritis Vertigo MARIELA (obstructive sleep apnea) Sick sinus syndrome Peripheral vascular disease Menieres disease Urinary bladder cancer Obesity Gout GERD (gastroesophageal reflux disease) Hypercholesterolemia Surgical History History of lumpectomy of left breast (03/10/23) History of esophagogastroduodenoscopy (EGD) S/P cardiac pacemaker procedure Hx of colonoscopy History of cystoscopy S/P MARION-BSO (total abdominal hysterectomy and bilateral salpingo-oophorectomy) History of cataract surgery History of knee replacement History of tonsillectomy History of appendectomy History of cholecystectomy Family History Family History Father Stroke Mother Heart disease Social History Social History Housing: House Are you a primary resident care spec to a significant other at home: No Do you presently have visiting nurse or other home services: No Alcohol intake: current Alcohol intake frequency: does not drink Patient Tobacco Use Status: Former Tobacco user Quit Date: age 57 Tobacco use type: Cigarette Smoked in Last 30 Days: No e-Cigarette/Vaping Use: Never Used Second Hand Smoke Exposure: No Use of substances other than those prescribed or required for medical reasons: No Advance Directives: No Advance Directives Information Provided: No Current occupational status: retired Cognitive needs: No Hearing needs: Yes Vision needs: Yes Physical Exam 2 Vital Signs: Vital Signs: Last Vital Signs Temp 97.6 F 03/25/23 07:17 Pulse 70 03/25/23 07:17 Resp 12 03/25/23 07:17 BP 119/44 L 03/25/23 07:17 Pulse Ox 96 03/25/23 07:17 O2 Del Method Room Air 03/25/23 07:17 BMI result Body Mass Index 34.7 Vital signs were normal Exam: General: Awake, alert in no distress, answers questions appropriate Head: Normocephalic, atraumatic EENT: PERRL, Lids normal, sclera normal, conjunctiva normal, nose normal , ears normal, throat without erythema or exudates Neck: Supple, no adenopathy, no trachea midline or C-spine tenderness Lung: breath sounds symmetric, no wheezing, rales or rhonchi Chest: symmetric movement, nontender Heart: regular rate and rhythm, normal S1, S2 no murmurs or rubs Abdomen: soft, non-tender, nondistended, normal bowel sounds Back: no vertebral tenderness, no CVAT Extremities: no deformities, moves all extremities symmetrically, bilateral knee replacements, Neuro: Awake, alert, oriented in place, answers all questions appropriately Normal l speech cranial nerves intact Extremities: Patient is only minimally able to lift her lower extremities up against gravity, she is able to lift her upper extremities against gravity with normal strength Psych: Pleasant, cooperative Medications Administered Generic Name Dose Route Start Last Admin Trade Name Dale PRN Reason Stop Dose Admin Sodium Chloride 1,000 mls @ 125 mls/hr 03/25/23 05:30 03/25/23 07:17 Ns IVCONT 0 mls/hr .Q8H ABEBE Infusion Lactated Ringer's 1,000 mls @ 999 mls/hr 03/25/23 07:15 03/25/23 07:17 Lr IV 03/25/23 08:15 999 mls/hr .Q1H1M ABEBE Administration Medical Decision Making Medical Decision Making [facility] Narrative: 87-year-old female history of chronic renal insufficiency, hypertension, pacemaker, leg edema, vertigo, MARIELA, peripheral vascular disease, bladder cancer, obesity, GERD, hypercholesterolemia who presents emergency department for evaluation of weakness with 2 fall past 2 days and unable to get off the toilet this morning secondary to weakness. Patient is complaining of weakness and states that her legs feel wobbly whenever she stands up. Review of systems was negative. Following evaluation was ordered: CBC, CMP, troponin, CK, urinalysis, COVID-19, flu, RSV, EKG, CT scan of the head, chest x-ray one view Patient was treated with normal saline 125 cc/hours 06:54 Patient's laboratory evaluation was significant for an elevated CK of 4640. This is consistent with the patient's recent falls and this may explain her weakness. Patient will be given normal saline as a bolus. Patient also has elevated troponin of 22.4 which will need to be repeated at 07:00 hours. I will discuss admission with the covering hospitalist. 08:15 I did discuss the patient's presentation over tiger text with the covering hospitalist, Dr. Otero and the patient will be admitted to the hospital service for further treatment Differential Diagnosis Differential Diagnoses: The differential diagnosis associated with the presentation includes Differential diagnosis includes was not limited to skull fracture, cerebral bleed, stroke, electrolyte abnormality, anemia, urinary tract infection, pneumonia, viral infection, COVID-19, influenza, RSV Admission/Observation Consideration of admission/observation: Escalation of care including admission/observation considered Lab Data [facility] Lab Attestation statement: I reviewed the patient's lab results. My interpretation patient's laboratory evaluation is as follows: CBC was normal. Sodium, potassium chloride were low 134, 3.1 and 95. BUN and creatinine are elevated 311.65-t this is secondary to her chronic kidney disease. Urinalysis revealed 2+ blood the. Microscopic revealed 0-2 RBCs, 0 of 5 WBCs, no bacteria-no evidence for infection. CK was elevated 4640. Troponin was elevated 22.4 with repeat due at 07:00 hours. 03/25/23 04:06 03/25/23 04:06 Labs: Lab Results 03/25/23 03/25/23 03/25/23 Range/Units 04:06 05:57 07:27 WBC 8.8 (4.8-10.8) X10*3/uL RBC 4.31 (4.20-5.50) X10*6/uL Hgb 12.4 (12.0-16.0) g/dl Hct 37.5 (37.0-47.0) % MCV 87.0 (80.0-98.0) fL MCH 28.8 (27.0-33.0) pg MCHC 33.1 (31.0-35.0) g/dl RDW 13.5 (11.0-16.0) % Plt Count 289 D (160-400) X10*3/uL MPV 9.2 L (9.4-12.3) fL Immature Gran % (Auto) 0.3 (0.0-0.4) % Neut % (Auto) 73.9 H (45-73) % Lymph % (Auto) 9.3 L (20-40) % [place] % (Auto) 14.0 H (2-11) % Eos % (Auto) 1.7 (0-4) % Baso % (Auto) 0.8 (0-2) % Lymph # (Auto) 0.8 L (1.2-4.9) X10*3/uL [place] # (Auto) 1.2 (0.1-1.2) X10*3/uL Eos # (Auto) 0.2 (0.0-0.4) X10*3/uL Baso # (Auto) 0.1 (0.0-0.2) X10*3/uL Abs Immat Gran (auto) 0.03 (0.00-0.03) X10*3/uL Absolute Neuts (auto) 6.5 (2.0-8.3) x10*3/uL Absolute Nucleated RBC 0.000 (0.0-0.012) X10*3/uL Nucleated RBC % (auto) 0.0 (0.0-0.2) /100WBC Sodium 134 L (135-145) mmol/L Potassium 3.1 L (3.3-5.1) mmol/L Chloride 95 L (96-108) mmol/L Carbon Dioxide 28 (22-29) mmol/L Anion Gap 14 (12-20) BUN 31 H (9-16) mg/dL Creatinine 1.65 H (0.5-1.4) mg/dL Estim Creat Clear Calc 24.0 Estimated GFR 29 Random Glucose 119 H (60-115) mg/dL Calcium 8.7 (8.4-10.2) mg/dL Total Bilirubin 0.4 (0.0-1.0) mg/dL AST 127 H (5-31) U/L ALT 27 (0-31) U/L Alkaline Phosphatase 116 (39-117) U/L Total Creatine Kinase 4640 H (26-140) U/L Troponin I High Sens 22.4 H 19.3 H (<3.5-17.0) ng/L Total Protein 7.1 (6.5-8.0) g/dL Albumin 3.5 (3.5-5.0) g/dL Urine Color Yellow Urine Appearance Clear Urine pH 5.5 (5.0-9.0) Ur Specific [place] 1.010 (1.005-1.025) Urine Protein Trace (Neg-Trace) mg/dL Urine Glucose (UA) Negative (Negative) mg/dL Urine Ketones Negative (Negative) mg/dL Urine Blood Moderate (2+) H (Negative) Urine Nitrite Negative (Negative) Ur Leukocyte Esterase Negative (Negative) Urine RBC 0-2 (0-2) /HPF Urine WBC 0-5 (0-5) /HPF Ur Squamous Epith Cells 0-2 (0-2) /HPF Urine Bacteria None Seen (None Seen) Hyaline Casts 0-2 (0-2) /LPF Influenza Type A (PCR) NEGATIVE (Negative) Influenza Type B (PCR) NEGATIVE (Negative) RSV RNA Qual (PCR) NEGATIVE (Negative) SARS-CoV-2 RNA (RT-PCR) POSITIVE A (Negative) Independent Interpretation I performed an independent interpretation of an: EKG and Plain X-Ray Interpretation: My interpretation patient's chest x-ray is as follows: No acute disease My independent interpretation patient's 12 EKG is as follows: Paced rhythm with a rate of 63 Radiology Impression Discussion of test interpretation with radiology: I have reviewed the radiologist's reading. Radiologist Impression: CT head/brain wo IV con IMPRESSION: No acute intracranial pathology. Dictated By: Gagan Somers MD XR chest 1V IMPRESSION: No acute findings. Dictated By: Gagan Somers MD Discharge Plan Discharge Clinical Impression: Weakness, Multiple falls, Elevated troponin I level Rhabdomyolysis Qualifiers: Rhabdomyolysis type: traumatic Encounter type: initial encounter Qualified Code(s): T79.6XXA - Traumatic ischemia of muscle, initial encounter Patient Disposition: Admitted As Inpatient
[2023-03-25] MEDS: 0.9 % Sodium Chloride 1,000 ML 125 ML IVCONT ×2 (05:41→16:59)
--- NOTE | 2023-03-25 06:04 | PC.NURSE ---
this rn and aristeo daly straight cath pt. pt voided 200ml of yellow urine. pt tolerated well.
[2023-03-25 06:05] LABS: Appearance Urine Clear; Color Urine Yellow; Glucose Urine UA Negative (Negative); Leukocyte Esterase Urine Negative (Negative); Nitrite Urine Negative (Negative); PH 5.5 (5.0-9.0); UMIC TRIGGER UACC YES; Urine Blood Moderate (2+) (Negative); Urine Ketones Negative (Negative); Urine Protein Trace mg/dL (Neg-Trace)
[2023-03-25 06:13] LABS: Bacteria Urine None Seen (None Seen); Hyaline Casts Urine 0-2 /LPF (0-2); RBC Urine 0-2 /HPF (0-2); Squamous Epithelial Cell Urine 0-2 /HPF (0-2); WBC Urine 0-5 /HPF (0-5)
--- NOTE | 2023-03-25 06:47 | MHC.EDTECH ---
Rounding done ,vitals taken ,pt was reposition and boosted up in bed ,Patient call arita within Pt reach .
--- NOTE | 2023-03-25 06:58 | PC.NURSE ---
pt repositioned in bed at this time.
[2023-03-25 07:14] LABS: Influenza A PCR NEGATIVE (Negative); Influenza B PCR NEGATIVE (Negative); Resp Syncy Virus RNA Qual PCR NEGATIVE (Negative); SARS COV2 PCR INHOUSE POSITIVE (Negative)
[2023-03-25] MEDS: Lactated Ringers 1,000 ML 999 ML IV (07:17)
--- NOTE | 2023-03-25 07:18 | PC.NURSE ---
patient resting quietly in bed, arousable to verbal stimuli. patient repsirations equal and unlabored, fluids switched from maintenance NS to bolus of LR ordered by MD, given as indicated in MAR. patient skin PWD, VSS.
[2023-03-25 07:54] LABS: Troponin-I High Sensitivity 19.3 ng/L (<3.5-17.0)
--- NOTE | 2023-03-25 09:02 | MHC.EDTECH ---
Pt assisted onto bedpan. Able to turn positions on own. Pt washed up and resting in bed watching tv. Call arita within reach.
--- NOTE | 2023-03-25 10:11 | PHA.MEDREC ---
Pharmacy Consult ? Medication Reconciliation Pharmacy has completed the medication reconciliation. Spoke to patient and confirmed medication list.
[2023-03-25] MEDS: Enoxaparin Sodium 30 MG/0.3 ML SYRINGE SUBCUT (10:17)
--- NOTE | 2023-03-25 12:48 | PC.NURSE ---
PER PT'S NEICE PT S/P FALL X 2 YESTERDAY. HITTING HEAD WHEN PT S/P FALL ON THE 2ND FALL. PT IS A/O X 4 NO SOB/THUAN NOTED SPEAKS IN FULL SENTENCES. PT IS COVID +. PT IS C/O L HIP/LEG PAIN 12/20. AWARE.
--- NOTE | 2023-03-25 13:02 | P.HPHOSP_ITS ---
History of Present Illness Date of Service: 03/25/23 Chief Complaint: fall, weakness An 87 year old lady with PMH of CKD4, HTN, MARIELA, PAD, on PPM among others who presents after having multiple falls. She reports waking up in morning to go to the bathroom but when she stood up felt weak in her legs and fell to the floor without hitting her head or losing her consciousness. she activated the Lifeline after failing to stand up on her own. EMS helped her back to recliner but she felt weak again and fell next to recliner. refused to come to ED with EMS twice. this morning similar incident when she fell happened and she was transferred to hospital. reporting left hip pain. denies No chest pain, palpitations, SOB, nausea, vomiting, diarrhea or urinary symptoms. admitted for further evaluation and management. Review of Systems 2 Review of Systems: No fever, chills but reports weakness No chest pain, palpitation No shortness of breath or coughing No abdominal pain, nausea or vomiting left hip pain No any rash or wounds PMFSH Medical History Chronic renal insufficiency HTN (hypertension) Cardiac pacemaker in situ AV block Leg edema Screening for diabetes mellitus On beta jake at home Arthritis Vertigo MARIELA (obstructive sleep apnea) Sick sinus syndrome Peripheral vascular disease Menieres disease Urinary bladder cancer Obesity Gout GERD (gastroesophageal reflux disease) Hypercholesterolemia Family History Father Stroke Mother Heart disease Surgical History History of lumpectomy of left breast (03/10/23) History of esophagogastroduodenoscopy (EGD) S/P cardiac pacemaker procedure Hx of colonoscopy History of cystoscopy S/P MARION-BSO (total abdominal hysterectomy and bilateral salpingo-oophorectomy) History of cataract surgery History of knee replacement History of tonsillectomy History of appendectomy History of cholecystectomy Social History Housing: House Are you a primary nursing care attendant to a significant other at home: No Do you presently have visiting nurse or other home services: No Alcohol intake: current Alcohol intake frequency: does not drink Patient Tobacco Use Status: Former Tobacco user Quit Date: age 57 Tobacco use type: Cigarette Smoked in Last 30 Days: No e-Cigarette/Vaping Use: Never Used Second Hand Smoke Exposure: No Use of substances other than those prescribed or required for medical reasons: No Advance Directives: No Advance Directives Information Provided: No Current occupational status: retired Cognitive needs: No Hearing needs: Yes Vision needs: Yes Meds Allergies Allergy/AdvReac Type Severity Reaction Status Date / Time No Known Allergies Allergy Verified 03/25/23 03:24 [No Known Allergies*] Active Medications: Current Medications Acetaminophen (Acetaminophen 325 Mg Tablet) 650 mg PO Q6H PRN PRN Reason: Pain, Mild (Pain Scale 1-3) Enoxaparin Sodium (Enoxaparin Sodium 30 Mg/0.3 Ml Syringe) 30 mg SUBCUT Q24H [facility] Last Admin: 03/25/23 10:17 Dose: 30 mg Sodium Chloride (Ns) 1,000 mls @ 125 mls/hr IVCONT .Q8H [facility] Last Infusion: 03/25/23 08:20 Dose: 125 mls/hr Ondansetron HCl (Ondansetron Hcl 4 Mg/2 Ml Vial) 4 mg IVPUSH Q8H PRN PRN Reason: Nausea and Vomiting Sodium Chloride (0.9 % Sodium Chloride Flush 3 Ml Syringe) 3 ml IVFLUSH QSHIFT [facility] Home Medications Medication Instructions Recorded Confirmed Last Taken Type aspirin 81 mg tablet,delayed 81 mg PO DAILY 03/11/20 03/25/23 03/24/23 History release (Adult Low Dose Aspirin) cholecalciferol (vitamin D3) 25 25 mcg PO DAILY 03/11/20 03/25/23 03/24/23 History mcg (1,000 unit) capsule coenzyme Q10 100 mg capsule (Co 100 mg PO DAILY 03/11/20 03/25/23 03/24/23 History Q-10) meclizine 25 mg tablet 25 mg PO DAILY 03/11/20 03/25/23 03/24/23 History polyethylene glycol 3350 17 gram 17 g PO DAILY PRN Constipation 02/24/23 03/25/23 Unknown History oral powder packet (Miralax) propylene glycol 0.6 % eye drops 1 drp ophthalmic (eye) DAILY PRN 02/24/23 03/25/23 Unknown History (Systane Balance) Dry Eyes amlodipine 5 mg tablet 5 mg PO DAILY 03/08/23 03/25/23 03/24/23 History gabapentin 300 mg capsule 300 mg PO BEDTIME 03/08/23 03/25/23 03/24/23 History nystatin 100,000 unit/gram topical 1 appl topical QID PRN Rash 03/25/23 03/25/23 Unknown History powder Physical Exam 2 Vital Signs and Narrative: Vital Signs: Last Vital Signs Temp 97.4 F 03/25/23 11:45 Pulse 61 03/25/23 11:45 Resp 18 03/25/23 11:45 BP 119/71 03/25/23 11:45 Pulse Ox 95 03/25/23 11:45 O2 Del Method Room Air 03/25/23 11:45 BMI result Body Mass Index 34.7 Const: Other: Constitutional : Awake, interactive, not in distress Neck : Normal inspection, Supple Cardiovascular : RRR, no JVP, no lower extremity edema Respiratory : good bilateral air entry, no crackles, wheezes or rhonchi Gastrointestinal: soft, lax, Normal bowel sounds, Non tender Skin : Warm, Dry Neurological : Alert & oriented x3, No focal deficit Results Labs 03/25/23 04:06 03/25/23 04:06 Labs: Laboratory Results - last 24 hr 03/25/23 03/25/23 04:06 05:57 MCV 87.0 MCH 28.8 MCHC 33.1 RDW 13.5 Plt Count 289 D MPV 9.2 L Immature Gran % (Auto) 0.3 Neut % (Auto) 73.9 H Lymph % (Auto) 9.3 L [place] % (Auto) 14.0 H Eos % (Auto) 1.7 Baso % (Auto) 0.8 Lymph # (Auto) 0.8 L [place] # (Auto) 1.2 Eos # (Auto) 0.2 Baso # (Auto) 0.1 Abs Immat Gran (auto) 0.03 Absolute Neuts (auto) 6.5 Absolute Nucleated RBC 0.000 Nucleated RBC % (auto) 0.0 Anion Gap 14 Estim Creat Clear Calc 24.0 Estimated GFR 29 Random Glucose 119 H Calcium 8.7 Total Bilirubin 0.4 AST 127 H ALT 27 Alkaline Phosphatase 116 Total Creatine Kinase 4640 H Total Protein 7.1 Albumin 3.5 Urine Color Yellow Urine Appearance Clear Urine pH 5.5 Ur Specific [place] 1.010 Urine Protein Trace Urine Glucose (UA) Negative Urine Ketones Negative Urine Blood Moderate (2+) H Urine Nitrite Negative Ur Leukocyte Esterase Negative Urine RBC 0-2 Urine WBC 0-5 Ur Squamous Epith Cells 0-2 Urine Bacteria None Seen Hyaline Casts 0-2 Influenza Type A (PCR) NEGATIVE Influenza Type B (PCR) NEGATIVE RSV RNA Qual (PCR) NEGATIVE SARS-CoV-2 RNA (RT-PCR) POSITIVE A Imaging Radiologist's Impressions: Impressions Chest X-Ray 03/25/23 05:30 IMPRESSION: No acute findings. Head CT 03/25/23 05:30 IMPRESSION: No acute intracranial pathology. Assessment and Plan (1) Rhabdomyolysis: Qualifiers: Encounter type: initial encounter Rhabdomyolysis type: traumatic Qualified Code(s): T79.6XXA - Traumatic ischemia of muscle, initial encounter Status: Acute (2) Multiple falls: Status: Acute (3) Acute hypokalemia: Status: Acute (4) Physical deconditioning: Status: Acute Plan An 87 year old lady with PMH of CKD4, HTN, MARIELA, PAD, on PPM among others who presents after having multiple falls. Falls 2/[address] head negative for any acute findings PT evaluation might need placement Acute Hypokalemia K of 3.1, to give replacement Rhabdomyolysis Elevated CK start IVF monitor response and repeat CK Left hip pain check XR HTN Amlodipine, HCT, Metoprolol GERD Omeprazole DVT PPx Lovenox The patient will need 2 overnight hospital stay for rhabdomyolysis requiring IV fluids and repeat labs pending PT eval and safe discharge plan Quality Stroke Does the patient have a stroke diagnosis?: No VTE Prior VTE?: No VTE Risk Level:: Medical - moderate - high VTE Device Contraindication: Treatment Not Indicated VTE Drug Contraindication: N/A - Med Ordered
--- NOTE | 2023-03-25 14:04 | PC.NURSE ---
PT'S PHUONG HAS LEFT THE BEDSIDE, BUT HER SISTER REMAINS AT BEDSIDE. PT AWARE OF PLAN OF CARE.
--- NOTE | 2023-03-25 14:49 | PC.NURSE ---
PT WENT TO X-RAY VIA BED.
--- NOTE | 2023-03-25 15:05 | PC.NURSE ---
PT RETURNED FROM XRAY VIA STRETCHER.
[2023-03-25] MEDS: 0.9 % Sodium Chloride Flush 3 ML SYRINGE IVFLUSH (15:26)
--- NOTE | 2023-03-25 15:28 | PC.NURSE ---
PT laying in bed, resp even and unlabored, in no apparent distress. Requested and given warm blanket for comfort. Sister at bedside. Plan of care ongoing.
--- NOTE | 2023-03-25 16:37 | MHC.EDTECH ---
THIS PCT ASSUMED CARE OF PT AT 1500 ,VITALS TAKEN ,PT COMFORTABLE RESTING IN BED .
--- NOTE | 2023-03-25 17:16 | PC.NURSE ---
PT sitting up in bed eating dinner. Ambulated with assistance to commode and urinated large amount. PT reporting 8/10 L hip pain while ambulating, acetaminophen given with effect pending. Call arita within reach.
[2023-03-25] MEDS: Acetaminophen 325 MG TABLET 650 MG PO (17:31)
[2023-03-25] MEDS: Gabapentin 300 MG CAPSULE PO (19:58)
[2023-03-25] MEDS: Atorvastatin Calcium 10 MG TABLET PO (19:58)
[2023-03-26 03:43] VITALS: BP 120/58; PULSE 59; RESP 15; TEMP 36.9; O2SAT 98
[2023-03-26] MEDS: 0.9 % Sodium Chloride 1,000 ML 125 ML IVCONT ×2 (06:13→14:26)
[2023-03-26] MEDS: Omeprazole 20 MG CAPSULE.DR PO (06:14)
[2023-03-26 07:17] LABS: MANUAL DIFF FLAG NO
[2023-03-26 07:25] LABS: Basophils Percent Auto 0.6 % (0-2); Eosinophils Absolute Auto 0.4 X10*3/uL (0.0-0.4); Eosinophils Percent Auto 5.4 % (0-4); Hematocrit 34.9 % (37.0-47.0); Hemoglobin 11.4 g/dl (12.0-16.0); Imm Gran Abs Auto 0.03 X10*3/uL (0.00-0.03); Imm Gran Pct Auto 0.5 % (0.0-0.4); Lymphocytes Absolute Auto 1.1 X10*3/uL (1.2-4.9); Lymphocytes Percent Auto 17.5 % (20-40); Mean Corpuscular HGB Conc 32.7 g/dl (31.0-35.0); Mean Corpuscular Hemoglobin 28.9 pg (27.0-33.0); Mean Corpuscular Volume 88.4 fL (80.0-98.0); Mean Platelet Volume 9.6 fL (9.4-12.3); Monocytes Absolute Auto 0.7 X10*3/uL (0.1-1.2); Monocytes Percent Auto 10.3 % (2-11); Neutrophils Absolute Auto 4.3 x10*3/uL (2.0-8.3); Neutrophils Percent Auto 65.7 % (45-73); Platelet Count 250 X10*3/uL (160-400); Red Blood Count 3.95 X10*6/uL (4.20-5.50); Red Cell Distribution Width 13.8 % (11.0-16.0); White Blood Count 6.5 X10*3/uL (4.8-10.8)
[2023-03-26 07:27] VITALS: BP 139/76; PULSE 70; RESP 18; TEMP 36.4; O2SAT 94
[2023-03-26 07:46] LABS: Anion Gap 11 (12-20); Blood Urea Nitrogen 20 mg/dL (9-16); Calcium 8.1 mg/dL (8.4-10.2); Carbon Dioxide 29 mmol/L (22-29); Chloride 102 mmol/L (96-108); Creatinine Clr Calc Pharmacy 35.5; Estimated Glomerular Filt Rate 48; Glucose Random 82 mg/dL (60-115); Potassium 2.9 mmol/L (3.3-5.1); Sodium 139 mmol/L (135-145)
[2023-03-26] MEDS: Aspirin Enteric Coated 81 MG TABLET.DR PO (09:34)
[2023-03-26] MEDS: Metoprolol Succinate ER 50 MG TAB.ER.24H PO (09:34)
[2023-03-26] MEDS: Cyanocobalamin (Vitamin B-12) 1,000 MCG TABLET 1000 MCG PO (09:34)
[2023-03-26] MEDS: Enoxaparin Sodium 30 MG/0.3 ML SYRINGE SUBCUT (09:34)
[2023-03-26] MEDS: Meclizine HCl 25 MG TABLET PO (09:34)
[2023-03-26] MEDS: Cholecalciferol (Vitamin D3) 25 MCG TABLET PO (09:34)
[2023-03-26] MEDS: amLODIPine Besylate 5 MG TABLET PO (09:34)
[2023-03-26] MEDS: hydroCHLOROthiazide 25 MG TABLET PO (09:34)
[2023-03-26] MEDS: Potassium Chloride Packet 20 MEQ PACKET 40 MEQ PO ×2 (09:34→11:55)
--- NOTE | 2023-03-26 10:19 | MHC.CM.PN ---
IMM 03/26/23 pt lives alone and does not have home health services, nor has she used [facility] or been to STR. HCP is on file and confirmed, it is Yadi Irwin. PT has rec STR. PCP confirmed, Anival Shirley CM to follow and assist with DC planning.
--- NOTE | 2023-03-26 12:29 | P.PNIM_ITS ---
Subjective Subjective Date of Service: 03/26/23 Interval History: Seen and evaluated this morning feels weak overall denies any fever or chills reporting left femur pain No reported overnight events Review of Systems Review of Systems: Yes all other systems are reviewed and are negative Physical Exam 2 Vital Signs: Vital Signs: Last Vital Signs Temp 97.5 F 03/26/23 07:27 Pulse 70 03/26/23 07:27 Resp 18 03/26/23 07:27 BP 139/76 03/26/23 07:27 Pulse Ox 94 03/26/23 07:27 O2 Del Method Room Air 03/26/23 07:27 BMI result Body Mass Index 33.4 Const: Other: Constitutional : Awake, interactive, not in distress Neck : Normal inspection, Supple Cardiovascular : RRR, no JVP, no lower extremity edema Respiratory : good bilateral air entry, no crackles, wheezes or rhonchi Gastrointestinal: soft, lax, Normal bowel sounds, Non tender Skin : Warm, Dry Skeletal: mild tenderness mid left femur Neurological : Alert & oriented x3, No focal deficit Objective Data Active Medications Acetaminophen (Acetaminophen 325 Mg Tablet) 650 mg PO Q6H PRN PRN Reason: Pain, Mild (Pain Scale 1-3) Last Admin: 03/25/23 17:31 Dose: 650 mg Documented By: JADE Amlodipine Besylate (Amlodipine Besylate 5 Mg Tablet) 5 mg PO DAILY [facility]; Protocol Last Admin: 03/26/23 09:34 Dose: 5 mg Documented By: SHIKHA Artificial Tears (Artificial Tears 15 Ml Drops) 1 drop EYE-BOTH DAILY PRN PRN Reason: Dry Eyes Aspirin (Aspirin Enteric Coated 81 Mg Mallika.) 81 mg PO DAILY [facility] Last Admin: 03/26/23 09:34 Dose: 81 mg Documented By: SHIKHA Atorvastatin Calcium (Atorvastatin Calcium 10 Mg Tablet) 10 mg PO BEDTIME [facility] Last Admin: 03/25/23 19:58 Dose: 10 mg Documented By: JENNY Cyanocobalamin (Cyanocobalamin (Vitamin B-12) 1,000 Mcg Tablet) 1,000 mcg PO DAILY [facility] Last Admin: 03/26/23 09:34 Dose: 1,000 mcg Documented By: SHIKHA Enoxaparin Sodium (Enoxaparin Sodium 40 Mg/0.4 Ml Syringe) 40 mg SUBCUT Q24H [facility] Gabapentin (Gabapentin 300 Mg Capsule) 300 mg PO BEDTIME [facility] Last Admin: 03/25/23 19:58 Dose: 300 mg Documented By: JENNY Hydrochlorothiazide (Hydrochlorothiazide 25 Mg Tablet) 25 mg PO DAILY [facility]; Protocol Last Admin: 03/26/23 09:34 Dose: 25 mg Documented By: SHIKHA Sodium Chloride (Ns) 1,000 mls @ 125 mls/hr IVCONT .Q8H [facility] Last Admin: 03/26/23 06:13 Dose: 125 mls/hr Documented By: JENNY Meclizine HCl (Meclizine Hcl 25 Mg Tablet) 25 mg PO DAILY [facility] Last Admin: 03/26/23 09:34 Dose: 25 mg Documented By: SHIKHA Metoprolol Succinate (Metoprolol Succinate Er 50 Mg Tab.Er.24h) 50 mg PO DAILY [facility]; Protocol Last Admin: 03/26/23 09:34 Dose: 50 mg Documented By: SHIKHA Nystatin (Nystatin Powder 15 Gm Bottle) 1 appl TOPICAL QID PRN; Protocol PRN Reason: Rash Omeprazole (Omeprazole 20 Mg Capsule.Dr) 20 mg PO DAILY@0630 [facility] Last Admin: 03/26/23 06:14 Dose: 20 mg Documented By: JENNY Ondansetron HCl (Ondansetron Hcl 4 Mg/2 Ml Vial) 4 mg IVPUSH Q8H PRN PRN Reason: Nausea and Vomiting Polyethylene Glycol (Polyethylene Glycol 3350 17 Gm Powd.Pack) 17 gm PO DAILY PRN PRN Reason: Constipation Sodium Chloride (0.9 % Sodium Chloride Flush 3 Ml Syringe) 3 ml IVFLUSH QSHIFT [facility] Last Admin: 03/26/23 09:35 Dose: Not Given Documented By: SHIKHA Non-Admin Reason: IV Running Vitamin D (Cholecalciferol (Vitamin D3) 25 Mcg Tablet) 25 mcg PO DAILY [facility] Last Admin: 03/26/23 09:34 Dose: 25 mcg Documented By: SHIKHA Labs 03/26/23 06:54 03/26/23 06:54 Labs: Laboratory Results - last 24 hr 03/26/23 06:54 MCV 88.4 MCH 28.9 MCHC 32.7 RDW 13.8 Plt Count 250 MPV 9.6 Immature Gran % (Auto) 0.5 H Neut % (Auto) 65.7 Lymph % (Auto) 17.5 L Perry % (Auto) 10.3 Eos % (Auto) 5.4 H Baso % (Auto) 0.6 Lymph # (Auto) 1.1 L Perry # (Auto) 0.7 Eos # (Auto) 0.4 Baso # (Auto) 0.0 Abs Immat Gran (auto) 0.03 Absolute Neuts (auto) 4.3 Absolute Nucleated RBC 0.000 Nucleated RBC % (auto) 0.0 Anion Gap 11 L Estim Creat Clear Calc 35.5 Estimated GFR 48 Random Glucose 82 Calcium 8.1 L D Total Creatine Kinase 1891 H Assessment and Plan (1) Physical deconditioning: Status: Acute (2) Acute hypokalemia: Status: Acute (3) Rhabdomyolysis: Status: Acute (4) Multiple falls: Status: Acute (5) COVID-19 virus infection: Status: Acute Plan An 87 year old lady with PMH of CKD4, HTN, MARIELA, PAD, on PPM among others who presents after having multiple falls. # Covid 19 infection # Falls 2/2 physical deconditioning related to Covid19 [address] head negative for any acute findings PT evaluation might need placement # Acute Hypokalemia K to 2.9 to give replacement follow BMP # Rhabdomyolysis Trending down CK xontinue IVF monitor response and repeat CK # Left hip pain Negative XR for any fracture # CKD3 Cr improved to 1.1 monitor BMP HTN Amlodipine, HCT, Metoprolol GERD Omeprazole DVT PPx Lovenox The patient will need overnight hospital stay for rhabdomyolysis requiring IV fluids and repeat labs pending PT eval and safe discharge plan Quality Stroke Does the patient have a stroke diagnosis?: No VTE Prior VTE?: No VTE Risk Level:: Medical - moderate - high VTE Device Contraindication: Treatment Not Indicated VTE Drug Contraindication: N/A - Med Ordered
--- NOTE | 2023-03-26 14:34 | MHC.CM.PN ---
ROSY met with pt to discuss her STR choices, she lives in [facility] and wants to be near there. She said she does not want to go to STR because she has things to do, ROSY discussed with her that she was very weak and will benefit from the rehab so that when goes home, she will stay well. She agreed.
[2023-03-26 15:44] VITALS: BP 130/59; PULSE 60; RESP 18; TEMP 36.6; O2SAT 95
[2023-03-26 19:11] VITALS: BP 110/60; PULSE 58; RESP 20; TEMP 36.1; O2SAT 93
[2023-03-26] MEDS: Atorvastatin Calcium 10 MG TABLET PO (21:48)
[2023-03-26] MEDS: Gabapentin 300 MG CAPSULE PO (21:48)
[2023-03-26 23:52] VITALS: BP 110/54; PULSE 63; RESP 18; TEMP 36.8; O2SAT 96
[2023-03-27 03:40] VITALS: BP 118/58; PULSE 73; RESP 18; TEMP 36.2; O2SAT 95
[2023-03-27] MEDS: 0.9 % Sodium Chloride 1,000 ML 125 ML IVCONT ×3 (05:55→19:58)
[2023-03-27] MEDS: Omeprazole 20 MG CAPSULE.DR PO (05:55)
[2023-03-27 07:38] VITALS: BP 119/63; PULSE 55; RESP 20; TEMP 36.8; O2SAT 95
[2023-03-27 07:53] LABS: Anion Gap 11 (12-20); Blood Urea Nitrogen 16 mg/dL (9-16); Calcium 7.8 mg/dL (8.4-10.2); Carbon Dioxide 28 mmol/L (22-29); Chloride 105 mmol/L (96-108); Creatinine Clr Calc Pharmacy 41.7; Estimated Glomerular Filt Rate 57; Glucose Random 84 mg/dL (60-115); Potassium 3.1 mmol/L (3.3-5.1); Sodium 141 mmol/L (135-145)
[2023-03-27] MEDS: hydroCHLOROthiazide 25 MG TABLET PO (09:20)
[2023-03-27] MEDS: Enoxaparin Sodium 40 MG/0.4 ML SYRINGE SUBCUT (09:20)
[2023-03-27] MEDS: Meclizine HCl 25 MG TABLET PO (09:20)
[2023-03-27] MEDS: Cyanocobalamin (Vitamin B-12) 1,000 MCG TABLET 1000 MCG PO (09:20)
[2023-03-27] MEDS: amLODIPine Besylate 5 MG TABLET PO (09:20)
[2023-03-27] MEDS: Aspirin Enteric Coated 81 MG TABLET.DR PO (09:20)
[2023-03-27] MEDS: Cholecalciferol (Vitamin D3) 25 MCG TABLET PO (09:20)
[2023-03-27] MEDS: 0.9 % Sodium Chloride Flush 3 ML SYRINGE IVFLUSH (09:21)
[2023-03-27] MEDS: Potassium Chloride Packet 20 MEQ PACKET 40 MEQ PO ×2 (09:21→12:38)
--- NOTE | 2023-03-27 09:21 | P.PNIM_ITS ---
Subjective Subjective Date of Service: 03/27/23 Interval History: Seen and evaluated this morning feels weak overall Improved left femur pain No reported overnight events Review of Systems Review of Systems: Yes all other systems are reviewed and are negative Physical Exam 2 Vital Signs: Vital Signs: Last Vital Signs Temp 98.2 F 03/27/23 07:38 Pulse 55 03/27/23 07:38 Resp 20 03/27/23 07:38 BP 119/63 03/27/23 07:38 Pulse Ox 95 03/27/23 07:38 O2 Del Method Room Air 03/27/23 07:38 BMI result Body Mass Index 33.4 Const: Other: Constitutional : Awake, interactive, not in distress Neck : Normal inspection, Supple Cardiovascular : RRR, no JVP, no lower extremity edema Respiratory : good bilateral air entry, no crackles, wheezes or rhonchi Gastrointestinal: soft, lax, Normal bowel sounds, Non tender Skin : Warm, Dry Skeletal: mild tenderness mid left femur Neurological : Alert & oriented x3, No focal deficit Objective Data Active Medications Acetaminophen (Acetaminophen 325 Mg Tablet) 650 mg PO Q6H PRN PRN Reason: Pain, Mild (Pain Scale 1-3) Last Admin: 03/25/23 17:31 Dose: 650 mg Documented By: JADE Amlodipine Besylate (Amlodipine Besylate 5 Mg Tablet) 5 mg PO DAILY [facility]; Protocol Last Admin: 03/26/23 09:34 Dose: 5 mg Documented By: SHIKHA Artificial Tears (Artificial Tears 15 Ml Drops) 1 drop EYE-BOTH DAILY PRN PRN Reason: Dry Eyes Aspirin (Aspirin Enteric Coated 81 Mg Mallika.) 81 mg PO DAILY [facility] Last Admin: 03/26/23 09:34 Dose: 81 mg Documented By: SHIKHA Atorvastatin Calcium (Atorvastatin Calcium 10 Mg Tablet) 10 mg PO BEDTIME [facility] Last Admin: 03/26/23 21:48 Dose: 10 mg Documented By: JUDSON Cyanocobalamin (Cyanocobalamin (Vitamin B-12) 1,000 Mcg Tablet) 1,000 mcg PO DAILY [facility] Last Admin: 03/26/23 09:34 Dose: 1,000 mcg Documented By: SHIKHA Enoxaparin Sodium (Enoxaparin Sodium 40 Mg/0.4 Ml Syringe) 40 mg SUBCUT Q24H [facility] Gabapentin (Gabapentin 300 Mg Capsule) 300 mg PO BEDTIME [facility] Last Admin: 03/26/23 21:48 Dose: 300 mg Documented By: JUDSON Hydrochlorothiazide (Hydrochlorothiazide 25 Mg Tablet) 25 mg PO DAILY [facility]; Protocol Last Admin: 03/26/23 09:34 Dose: 25 mg Documented By: SHIKHA Sodium Chloride (Ns) 1,000 mls @ 125 mls/hr IVCONT .Q8H [facility] Last Admin: 03/27/23 06:35 Dose: Not Given Documented By: JUDSON Non-Admin Reason: IV Running Meclizine HCl (Meclizine Hcl 25 Mg Tablet) 25 mg PO DAILY [facility] Last Admin: 03/26/23 09:34 Dose: 25 mg Documented By: SHIKHA Metoprolol Succinate (Metoprolol Succinate Er 50 Mg Tab.Er.24h) 50 mg PO DAILY [facility]; Protocol Last Admin: 03/26/23 09:34 Dose: 50 mg Documented By: SHIKHA Nystatin (Nystatin Powder 15 Gm Bottle) 1 appl TOPICAL QID PRN; Protocol PRN Reason: Rash Omeprazole (Omeprazole 20 Mg Capsule.Dr) 20 mg PO DAILY@0630 [facility] Last Admin: 03/27/23 05:55 Dose: 20 mg Documented By: JUDSON Ondansetron HCl (Ondansetron Hcl 4 Mg/2 Ml Vial) 4 mg IVPUSH Q8H PRN PRN Reason: Nausea and Vomiting Polyethylene Glycol (Polyethylene Glycol 3350 17 Gm Powd.Pack) 17 gm PO DAILY PRN PRN Reason: Constipation Potassium Chloride (Potassium Chloride Packet 20 Meq Packet) 40 meq PO Q2H [facility] Stop: 03/27/23 10:01 Sodium Chloride (0.9 % Sodium Chloride Flush 3 Ml Syringe) 3 ml IVFLUSH QSHIFT [facility] Last Admin: 03/27/23 01:30 Dose: Not Given Documented By: JUDSON Non-Admin Reason: IV Running Vitamin D (Cholecalciferol (Vitamin D3) 25 Mcg Tablet) 25 mcg PO DAILY [facility] Last Admin: 03/26/23 09:34 Dose: 25 mcg Documented By: SHIKHA Labs 03/26/23 06:54 03/27/23 07:05 Labs: Laboratory Results - last 24 hr 12/16/23 07:05 Hold Purple Top SEE NOTE Anion Gap 11 L Estim Creat Clear Calc 41.7 Estimated GFR 57 Random Glucose 84 Calcium 7.8 L Total Creatine Kinase 1147 H Assessment and Plan (1) COVID-19 virus infection: Status: Acute (2) Physical deconditioning: Status: Acute (3) Acute hypokalemia: Status: Acute (4) Rhabdomyolysis: Status: Acute Plan An 87 year old lady with PMH of CKD4, HTN, MARIELA, PAD, on PPM among others who presents after having multiple falls. # Covid 19 infection # Falls 2/2 physical deconditioning related to Covid[address] head negative for any acute findings PT rec STR Supportive therapy # Acute Hypokalemia K to 3.1 to give replacement follow BMP # Rhabdomyolysis Trending down CK to 1100 continue IVF monitor response and repeat CK # Left hip pain Negative XR for any fracture # CKD3 Cr improved to 1.1 monitor BMP HTN Amlodipine, HCT, Metoprolol GERD Omeprazole DVT PPx Lovenox The patient will need overnight hospital stay for rhabdomyolysis requiring IV fluids and repeat labs pending PT eval and safe discharge plan Quality Stroke Does the patient have a stroke diagnosis?: No VTE Prior VTE?: No VTE Risk Level:: Medical - moderate - high VTE Device Contraindication: Treatment Not Indicated VTE Drug Contraindication: N/A - Med Ordered
[2023-03-27 16:00] VITALS: BP 114/60; PULSE 56; RESP 16; TEMP 36; O2SAT 95
[2023-03-27 19:06] VITALS: BP 119/49; PULSE 55; RESP 16; TEMP 36.1; O2SAT 96
[2023-03-27] MEDS: Atorvastatin Calcium 10 MG TABLET PO (20:06)
[2023-03-27] MEDS: Gabapentin 300 MG CAPSULE PO (20:06)
[2023-03-28 03:30] VITALS: BP 116/54; PULSE 55; RESP 18; TEMP 37.1; O2SAT 97
[2023-03-28] MEDS: Omeprazole 20 MG CAPSULE.DR PO (05:47)
[2023-03-28] MEDS: 0.9 % Sodium Chloride 1,000 ML 125 ML IVCONT ×3 (05:47→21:41)
[2023-03-28 07:44] VITALS: BP 144/76; PULSE 62; RESP 20; TEMP 36.3; O2SAT 95
[2023-03-28 07:53] LABS: Anion Gap 12 (12-20); Blood Urea Nitrogen 13 mg/dL (9-16); Calcium 7.6 mg/dL (8.4-10.2); Carbon Dioxide 26 mmol/L (22-29); Chloride 108 mmol/L (96-108); Creatinine Clr Calc Pharmacy 43.9; Estimated Glomerular Filt Rate > 60; Glucose Random 83 mg/dL (60-115); Potassium 3.5 mmol/L (3.3-5.1); Sodium 142 mmol/L (135-145)
[2023-03-28] MEDS: Aspirin Enteric Coated 81 MG TABLET.DR PO (10:02)
[2023-03-28] MEDS: Metoprolol Succinate ER 50 MG TAB.ER.24H PO (10:02)
[2023-03-28] MEDS: Cyanocobalamin (Vitamin B-12) 1,000 MCG TABLET 1000 MCG PO (10:03)
[2023-03-28] MEDS: Cholecalciferol (Vitamin D3) 25 MCG TABLET PO (10:03)
[2023-03-28] MEDS: Meclizine HCl 25 MG TABLET PO (10:03)
[2023-03-28] MEDS: 0.9 % Sodium Chloride Flush 3 ML SYRINGE IVFLUSH (10:03)
[2023-03-28] MEDS: amLODIPine Besylate 5 MG TABLET PO (10:03)
[2023-03-28] MEDS: Enoxaparin Sodium 40 MG/0.4 ML SYRINGE SUBCUT (10:03)
[2023-03-28] MEDS: hydroCHLOROthiazide 25 MG TABLET PO (10:03)
--- NOTE | 2023-03-28 10:13 | HO.PM.IMPN ---
Subjective Subjective Date of Service: 03/28/23 Interval History: Seen and evaluated this morning feels better and little stronger overall Improved left femur pain No reported overnight events Review of Systems Review of Systems: Yes all other systems are reviewed and are negative Physical Exam Vital Signs: Vital Signs: Last Vital Signs Temp 97.3 F 03/28/23 07:44 Pulse 62 03/28/23 07:44 Resp 20 03/28/23 07:44 BP 144/76 H 03/28/23 07:44 Pulse Ox 95 03/28/23 07:44 O2 Del Method Room Air 03/28/23 07:44 BMI result Body Mass Index 33.4 Const: Other: Constitutional : Awake, interactive, not in distress Neck : Normal inspection, Supple Cardiovascular : RRR, no JVP, no lower extremity edema Respiratory : good bilateral air entry, no crackles, wheezes or rhonchi Gastrointestinal: soft, lax, Normal bowel sounds, Non tender Skin : Warm, Dry Skeletal: mild tenderness mid left femur Neurological : Alert & oriented x3, No focal deficit Objective Data Active Medications Acetaminophen (Acetaminophen 325 Mg Tablet) 650 mg PO Q6H PRN PRN Reason: Pain, Mild (Pain Scale 1-3) Last Admin: 03/25/23 17:31 Dose: 650 mg Documented By: JADE Amlodipine Besylate (Amlodipine Besylate 5 Mg Tablet) 5 mg PO DAILY [facility]; Protocol Last Admin: 03/28/23 10:03 Dose: 5 mg Documented By: KATHI Artificial Tears (Artificial Tears 15 Ml Drops) 1 drop EYE-BOTH DAILY PRN PRN Reason: Dry Eyes Aspirin (Aspirin Enteric Coated 81 Mg Mallika.) 81 mg PO DAILY [facility] Last Admin: 03/28/23 10:02 Dose: 81 mg Documented By: KATHI Atorvastatin Calcium (Atorvastatin Calcium 10 Mg Tablet) 10 mg PO BEDTIME [facility] Last Admin: 03/27/23 20:06 Dose: 10 mg Documented By: MAXIMILIANO Cyanocobalamin (Cyanocobalamin (Vitamin B-12) 1,000 Mcg Tablet) 1,000 mcg PO DAILY [facility] Last Admin: 03/28/23 10:03 Dose: 1,000 mcg Documented By: KATHI Enoxaparin Sodium (Enoxaparin Sodium 40 Mg/0.4 Ml Syringe) 40 mg SUBCUT Q24H [facility] Last Admin: 03/28/23 10:03 Dose: 40 mg Documented By: KATHI Gabapentin (Gabapentin 300 Mg Capsule) 300 mg PO BEDTIME [facility] Last Admin: 03/27/23 20:06 Dose: 300 mg Documented By: MAXIMILIANO Hydrochlorothiazide (Hydrochlorothiazide 25 Mg Tablet) 25 mg PO DAILY [facility]; Protocol Last Admin: 03/28/23 10:03 Dose: 25 mg Documented By: KATHI Sodium Chloride (Ns) 1,000 mls @ 125 mls/hr IVCONT .Q8H [facility] Last Admin: 03/28/23 05:47 Dose: 125 mls/hr Documented By: GARY Meclizine HCl (Meclizine Hcl 25 Mg Tablet) 25 mg PO DAILY [facility] Last Admin: 03/28/23 10:03 Dose: 25 mg Documented By: KATHI Metoprolol Succinate (Metoprolol Succinate Er 50 Mg Tab.Er.24h) 50 mg PO DAILY [facility]; Protocol Last Admin: 03/28/23 10:02 Dose: 50 mg Documented By: KATHI Nystatin (Nystatin Powder 15 Gm Bottle) 1 appl TOPICAL QID PRN; Protocol PRN Reason: Rash Omeprazole (Omeprazole 20 Mg Capsule.Dr) 20 mg PO DAILY@0630 [facility] Last Admin: 03/28/23 05:47 Dose: 20 mg Documented By: GARY Ondansetron HCl (Ondansetron Hcl 4 Mg/2 Ml Vial) 4 mg IVPUSH Q8H PRN PRN Reason: Nausea and Vomiting Polyethylene Glycol (Polyethylene Glycol 3350 17 Gm Powd.Pack) 17 gm PO DAILY PRN PRN Reason: Constipation Sodium Chloride (0.9 % Sodium Chloride Flush 3 Ml Syringe) 3 ml IVFLUSH QSHIFT [facility] Last Admin: 03/28/23 10:03 Dose: 3 ml Documented By: KATHI Vitamin D (Cholecalciferol (Vitamin D3) 25 Mcg Tablet) 25 mcg PO DAILY [facility] Last Admin: 03/28/23 10:03 Dose: 25 mcg Documented By: KATHI Labs 03/26/23 06:54 03/28/23 07:03 Labs: Laboratory Results - last 24 hr 03/28/23 07:03 Hold Purple Top SEE NOTE Anion Gap 12 Estim Creat Clear Calc 43.9 Estimated GFR > 60 Random Glucose 83 Calcium 7.6 L Total Creatine Kinase 718 H Assessment and Plan (1) COVID-19 virus infection: Status: Acute (2) Physical deconditioning: Status: Acute (3) Acute hypokalemia: Status: Acute Plan An 87 year old lady with PMH of CKD4, HTN, MARIELA, PAD, on PPM among others who presents after having multiple falls. # Covid 19 infection # Falls 2/2 physical deconditioning related to Covid19 [address] head negative for any acute findings PT rec STR , to reeval tomorrow Supportive therapy # Acute Hypokalemia resolved post replacement follow BMP # Rhabdomyolysis Trending down CK to 700 continue IVF monitor response and repeat CK # Left hip pain Negative XR for any fracture # CKD3 Cr improved to 1.1 monitor BMP HTN Amlodipine, HCT, Metoprolol GERD Omeprazole DVT PPx Lovenox The patient will need overnight hospital stay for rhabdomyolysis requiring IV fluids and repeat labs pending PT eval and safe discharge plan Quality Stroke Does the patient have a stroke diagnosis?: No VTE Prior VTE?: No VTE Risk Level:: Medical - moderate - high VTE Device Contraindication: Treatment Not Indicated VTE Drug Contraindication: N/A - Med Ordered
[2023-03-28 15:34] VITALS: BP 124/59; PULSE 68; RESP 20; TEMP 36.3; O2SAT 99
[2023-03-28 19:27] VITALS: BP 144/65; PULSE 55; RESP 20; TEMP 36.3; O2SAT 96
[2023-03-28] MEDS: Atorvastatin Calcium 10 MG TABLET PO (20:40)
[2023-03-28] MEDS: Gabapentin 300 MG CAPSULE PO (20:40)
[2023-03-29 03:59] VITALS: BP 119/56; PULSE 59; RESP 18; TEMP 37.2; O2SAT 94
[2023-03-29] MEDS: Omeprazole 20 MG CAPSULE.DR PO (06:17)
[2023-03-29] MEDS: 0.9 % Sodium Chloride 1,000 ML 125 ML IVCONT (06:17)
[2023-03-29 08:00] VITALS: BP 133/86; PULSE 80; RESP 18; TEMP 36.9; O2SAT 94
[2023-03-29 08:41] LABS: COVID-19 Test Positive (Negative); IDNOW Serial# BCCEAD1C
[2023-03-29 09:00] VITALS: BP 132/69; PULSE 72
[2023-03-29] MEDS: hydroCHLOROthiazide 25 MG TABLET PO (09:04)
[2023-03-29] MEDS: Metoprolol Succinate ER 50 MG TAB.ER.24H PO (09:04)
[2023-03-29] MEDS: Cholecalciferol (Vitamin D3) 25 MCG TABLET PO (09:04)
[2023-03-29] MEDS: Enoxaparin Sodium 40 MG/0.4 ML SYRINGE SUBCUT (09:04)
[2023-03-29] MEDS: amLODIPine Besylate 5 MG TABLET PO (09:04)
[2023-03-29] MEDS: Aspirin Enteric Coated 81 MG TABLET.DR PO (09:04)
[2023-03-29] MEDS: Cyanocobalamin (Vitamin B-12) 1,000 MCG TABLET 1000 MCG PO (09:04)
[2023-03-29] MEDS: Meclizine HCl 25 MG TABLET PO (09:04)
[2023-03-29] MEDS: 0.9 % Sodium Chloride Flush 3 ML SYRINGE IVFLUSH (09:04)
--- NOTE | 2023-03-29 12:37 | P.DS_ITS ---
DS: Providers Provider Date of Service: 03/29/23 Date of admission: 03/25/23 09:23 Primary care physician: Román Naik MD DS: Diagnosis Discharge Diagnosis (1) COVID-19 virus infection: Status: Acute (2) Physical deconditioning: Status: Acute (3) Acute hypokalemia: Status: Acute DS: Summary Hospital Course Hospital Course: Admission note HPI An 87 year old lady with PMH of CKD4, HTN, MAREILA, PAD, on PPM among others who presents after having multiple falls. She reports waking up in morning to go to the bathroom but when she stood up felt weak in her legs and fell to the floor without hitting her head or losing her consciousness. she activated the [facility] after failing to stand up on her own. EMS helped her back to recliner but she felt weak again and fell next to recliner. refused to come to ED with EMS twice. this morning similar incident when she fell happened and she was transferred to hospital. reporting left hip pain. denies No chest pain, palpitations, SOB, nausea, vomiting, diarrhea or urinary symptoms. admitted for further evaluation and management. Hospital course Admitted for evidence of Covid 19 infection and Falls at home secondary to physical deconditioning related to Covid19 infection. [address] head negative for any acute findings. PT rec STR. she was treated with Supportive therapy. Found to have Acute Hypokalemia which resolved post replacement. Acute Rhabdomyolysis with CK level of 4600 on admission. responded well to IV fluids as CK Trended down with no kidney injury. Left hip and femur pain likely from fall. Negative XR for any fracture. Time Attestation Discharge coordination time: Greater than 30 minutes Quality: Safe Use of Opioids Does Pt have an Active Cancer Diagnosis on the Problem List?: No Quality: Stroke Does the patient have a stroke diagnosis?: No Physical Exam Vital Signs: Vital Signs: Last Vital Signs Temp 98.4 F 03/29/23 08:00 Pulse 72 03/29/23 09:00 Resp 18 03/29/23 08:00 BP 132/69 03/29/23 09:00 Pulse Ox 94 03/29/23 08:00 O2 Del Method Room Air 03/29/23 08:00 BMI result Body Mass Index 33.4 Const: Other: Constitutional : Awake, interactive, not in distress Neck : Normal inspection, Supple Cardiovascular : RRR, no JVP, no lower extremity edema Respiratory : good bilateral air entry, no crackles, wheezes or rhonchi Gastrointestinal: soft, lax, Normal bowel sounds, Non tender Skin : Warm, Dry Skeletal: mild tenderness mid left femur Neurological : Alert & oriented x3, No focal deficit DS: Data Data Completed and Pending Labs on day of discharge: Laboratory Results - last 24 hr 03/29/23 08:20 COVID-19 ([facility]) Positive A COVID-19 Clin Com See Note Imaging Chest x-ray: Radiologist's impression: ITS Impressions Chest X-Ray 03/25/23 05:30 IMPRESSION: No acute findings. Head CT 03/25/23 05:30 IMPRESSION: No acute intracranial pathology. Hip/Pelvis X-Ray 03/25/23 14:50 IMPRESSION: No evidence of acute traumatic injury to the pelvis or hips. Femur X-Ray 03/26/23 14:59 IMPRESSION: No acute osseous abnormality. Discharge Plan Discharge Anticipated Discharge Date/Time: 03/29/23 12:19 Patient Disposition: [facility] Discharge Diagnosis: Covid 19 infection physical deconditioning Referrals: Po,Román Leslie MD [Primary Care Provider] - 1 Week Discharge Medications: Continued omeprazole 20 mg capsule,delayed release(DR/EC) 20 mg PO DAILY Qty: 90 3RF cyanocobalamin (vitamin B-12) 1,000 mcg capsule 1,000 mcg PO DAILY Qty: 90 3RF amlodipine 5 mg tablet 5 mg PO DAILY gabapentin 300 mg capsule 300 mg PO BEDTIME nystatin 100,000 unit/gram powder 1 appl topical QID PRN (Reason: Rash) meclizine 25 mg tablet 25 mg PO DAILY aspirin [Adult Low Dose Aspirin] 81 mg tablet,delayed release (DR/EC) 81 mg PO DAILY cholecalciferol (vitamin D3) 25 mcg (1,000 unit) capsule 25 mcg PO DAILY coenzyme Q10 [Co Q-10] 100 mg capsule 100 mg PO DAILY metoprolol succinate 50 mg tablet extended release 24 hr 50 mg PO DAILY 90 Days Qty: 90 2RF simvastatin 20 mg tablet 20 mg PO BEDTIME Qty: 90 3RF hydrochlorothiazide 25 mg tablet 25 mg PO DAILY Qty: 90 3RF polyethylene glycol 3350 [Miralax] 17 gram powder in packet 17 g PO DAILY PRN (Reason: Constipation) Systane Balance 0.6 % drops 1 drp ophthalmic (eye) DAILY PRN (Reason: Dry Eyes) Discharge Orders: Discharge Order (Routine); Ordered 03/29/23 Ordered By: Justina Calle Diet: Advance to usual diet Activity on Discharge: As tolerated Stand Alone Forms: Patient Portal Discharge page Care Plan Goals: Read below Health Concerns: Read below Plan of Treatment: Read below Assessment: You were admitted for evaluation of fall at home. found to have Covid19 infection and muscle break down treated with IV fluids with good response.
--- NOTE | 2023-03-29 13:14 | MHC.CM.PN ---
Second IMM 03/29/23, pt has been medically cleared for DC, she will transfer via ambulance to [facility], with the eventual goal of returning to her home.
== END 2023-03-29 14:05 | disposition skilled nursing facility (03) | DRG 564 ==
LOC: HO.ED 07:03 → HO.EDOVER 09:23 → HO.S3 13:58 → HO.EDOVER 14:32 → HO.IMC 18:00
PROVIDERS: Admitting Provider Student in an Organized Health Care Education/Training Program; Emergency Provider Emergency Medicine Emergency Medical Services; PCP Internal Medicine; Visit Provider Student in an Organized Health Care Education/Training Program
DX: T79.6XXA Traumatic ischemia of muscle, initial encounter (principal); U07.1 COVID-19; W19.XXXA Unspecified fall, initial encounter; M25.552 Pain in left hip; E87.6 Hypokalemia; K21.9 Gastro-esophageal reflux disease without esophagitis; I49.5 Sick sinus syndrome; I12.9 Hypertensive chronic kidney disease with stage 1 through stage 4 chronic kidney disease, or unspecified chronic kidney disease; G47.33 Obstructive sleep apnea (adult) (pediatric); Z95.0 Presence of cardiac pacemaker; Z87.891 Personal history of nicotine dependence; Z79.82 Long term (current) use of aspirin; Z79.899 Other long term (current) drug therapy
CPT/HCPCS: 0241U; 36415; 70450; 71045; 73521; 73552; 80048; 80053; 81001; 82550; 84484; 85025; 87635; 93005; 97162; 99285; J1650; J7120

== ENCOUNTER → 2023-03-25 03:38 | Outpatient (BNV) | payer MEDICARE, SELFPAY | PROVIDERS: Admitting Provider Student in an Organized Health Care Education/Training Program; Emergency Provider Emergency Medicine Emergency Medical Services; PCP Internal Medicine; Visit Provider Internal Medicine Cardiovascular Disease | DX: R94.31 Abnormal electrocardiogram [ECG] [EKG] (principal) | CPT/HCPCS: 93010 ==

== ENCOUNTER → 2023-03-25 09:23 | Outpatient (BNV) | payer MEDICARE, SELFPAY | PROVIDERS: Admitting Provider Student in an Organized Health Care Education/Training Program; Emergency Provider Emergency Medicine Emergency Medical Services; PCP Internal Medicine; Visit Provider Student in an Organized Health Care Education/Training Program | DX: U07.1 COVID-19 (principal); R53.81 Other malaise; E87.6 Hypokalemia | CPT/HCPCS: 99223; 99232; 99233; 99239 ==

== ENCOUNTER → 2023-04-13 13:40 | Outpatient (BNV) | payer MEDICARE, SELFPAY | PROVIDERS: Visit Provider Internal Medicine | DX: C50.412 Malignant neoplasm of upper-outer quadrant of left female breast (principal); Z85.51 Personal history of malignant neoplasm of bladder; Z92.21 Personal history of antineoplastic chemotherapy | CPT/HCPCS: 99205; 99213; 99214 ==

== ENCOUNTER 2023-04-14 15:10 | Outpatient (AMB) | payer MEDICARE, SELFPAY ==
[2023-04-14 15:14] VITALS: BP 122/61; PULSE 73; O2SAT 97; BMI 34.0
--- NOTE | 2023-04-14 15:14 | MHC.PC.OV ---
Vital Signs 04/14/23 15:14 Height 5 ft 1 in Weight 180 lb BMI 34.0 BP 122/61 Blood Pressure Location Lt brachial Position Sitting Pulse 73 Pulse Source Pulse Oximeter Pulse Oximetry (%) 97 Oxygen Delivery Method Room Air Intake Visit Reasons: had 2 falls/ COVID Allergies No Known Allergies [No Known Allergies*] Allergy (Verified 04/14/23 15:19) Medication List - Last Reconciled 04/14/23 by Román Naik MD amlodipine 5 mg PO DAILY aspirin (Adult Low Dose Aspirin) 81 mg PO DAILY cholecalciferol (vitamin D3) 25 mcg PO DAILY coenzyme Q10 (Co Q-10) 100 mg PO DAILY cyanocobalamin (vitamin B-12) 1,000 mcg PO DAILY gabapentin 300 mg PO BEDTIME hydrochlorothiazide 25 mg PO DAILY meclizine 25 mg PO DAILY metoprolol succinate ER 50 mg PO DAILY 90 days nystatin 1 appl topical QID PRN omeprazole 20 mg PO DAILY polyethylene glycol 3350 (Miralax) 17 grams PO DAILY PRN propylene glycol 0.6% (Systane Balance) 1 drp ophthalmic (eye) DAILY PRN simvastatin 20 mg PO BEDTIME Tobacco use date assessed: 04/14/23 Fall risk assessment: 2 + Falls in past year Last assessed Fall Risk: 04/14/23 Dental Screening Dental Screen Date: 04/14/23 HPI had 2 falls/ COVID HPI Details 87-year-old obese female with a history of urinary bladder cancer hypertension GERD last seen in February 2023. Patient is here for follow-up. 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 Patient also was in the hospital March 29 due to multiple falls COVID-19 infection had hypokalemia and rhabdomyolysis IV fluids given and responded. Negative x-ray for fracture. Patient was seen by Gastroenterology also due to dysphagia pharyngo esophageal dysphagia with some degree of incoordination patient was advised EGD [facility] Medical History Chronic renal insufficiency HTN (hypertension) Cardiac pacemaker in situ AV block Leg edema Screening for diabetes mellitus On beta jake at home Arthritis Vertigo MARIELA (obstructive sleep apnea) Sick sinus syndrome Peripheral vascular disease Menieres disease Urinary bladder cancer Obesity Gout GERD (gastroesophageal reflux disease) Hypercholesterolemia Surgical History History of lumpectomy of left breast (03/10/23) History of esophagogastroduodenoscopy (EGD) S/P cardiac pacemaker procedure Hx of colonoscopy History of cystoscopy S/P MARION-BSO (total abdominal hysterectomy and bilateral salpingo-oophorectomy) History of cataract surgery History of knee replacement History of tonsillectomy History of appendectomy History of cholecystectomy Family History Father Stroke Mother Heart disease Social History (Updated 04/13/23 @ 13:47 by Breanna Love) Household Members: None Housing: Apartment Are you a primary rn patient care to a significant other at home: No Do you presently have visiting nurse or other home services: No Alcohol intake: current Alcohol intake frequency: does not drink Patient Tobacco Use Status: Former Tobacco user Quit Date: age 57 Tobacco use type: Cigarette e-Cigarette/Vaping Use: Never Used Second Hand Smoke Exposure: No service: No Current occupational status: retired Cognitive needs: No Hearing needs: Yes Vision needs: Yes Questionnaire Thrive Questionnaire Date Thrive assessed: 03/26/23 AUDIT C Alcohol Use Questionnaire (AUDIT-C) 1. How often do you have a drink containing alcohol?: Never 3. How often do you have six or more drinks on one occasion?: Never Total Score: 0 DESI-7 AMB Questionnaire DESI-7 Date DESI - 7 assessed: 05/20/22 Source: Developed by Drs. Wilver Hightower, Tanya Bardales, Thomas Perry and colleagues, with an educational mike from [employer]. Physical exam (Primary Care) Vital Signs: Last Vital Signs Pulse 73 04/14/23 15:14 BP 122/61 04/14/23 15:14 Pulse Ox 97 04/14/23 15:14 Oxygen Delivery Method Room Air 04/14/23 15:14 BMI result Body Mass Index 34.0 Tobacco/Smoking Status: Tobacco use Status Tobacco use date assessed 04/14/23 04/14/23 15:15 Patient Tobacco Use Status Former Tobacco user 04/14/23 15:15 Tobacco use type Cigarette 04/14/23 15:15 e-Cigarette/Vaping Use Never Used 04/14/23 15:15 Thrive Assessment: Date of Thrive Assessment Date Thrive assessed 03/26/23 04/14/23 15:15 Const General: alert; No acute distress Eyes Conjunctivae: conjunctivae normal Resp Auscultation: clear to auscultation bilaterally Cardio Rate: regular rate Rhythm: regular rhythm GI Inspection: Yes normal to inspection Extrem General: Yes normal to inspection and No edema Assessment and Plan Assessment & Plan (1) Breast cancer, left: Comment: 02/2023 Invasive with lobular and ductal features, 03/10/2023 L breast lumpectomy Code(s): C50.912 - Malignant neoplasm of unspecified site of left female breast Qualifiers: Breast location: upper outer quadrant of breast Estrogen receptor status: unspecified Patient sex: female Qualified Code(s): C50.412 - Malignant neoplasm of upper-outer quadrant of left female breast Plan: Patient has been follow-up with hematology oncology and planned hormonal therapy (2) COVID-19 virus infection: Comment: March 2023 Code(s): U07.1 - COVID-19 Plan: Resolved (3) Esophageal dysmotility: Comment: 2017 Code(s): K22.4 - Dyskinesia of esophagus Plan: Planned EGD by Gastroenterology (4) Essential hypertension: Code(s): I10 - Essential (primary) hypertension Plan: Continue with blood pressure medication. Decrease salt intake and exercise on amlodipine 5 mg once a day hydrochlorothiazide 25 mg once a day metoprolol 50 mg once a day (5) Obesity: Code(s): E66.9 - Obesity, unspecified Qualifiers: Obesity type: due to excess calories Obesity classification: adult class 3 (BMI >= 40) Serious obesity comorbidity presence: with serious comorbidity Body mass index: BMI 40.0-44.9 Qualified Code(s): E66.01 - Morbid (severe) obesity due to excess calories; Z68.41 - Body mass index [BMI]40.0-44.9, adult Plan: Keep well hydrated (6) Cardiac pacemaker in situ: Comment: Medtronic dual-chamber pacemaker in place Code(s): Z95.0 - Presence of cardiac pacemaker Plan: Stable (7) GERD (gastroesophageal reflux disease): Code(s): K21.9 - Gastro-esophageal reflux disease without esophagitis Qualifiers: Esophagitis presence: without esophagitis Qualified Code(s): K21.9 - Gastro-esophageal reflux disease without esophagitis Plan: Avoid the foods that causes that usually spicy foods, tomato products, juices, coffee, soda and foods that your sensitive to. After eating do not lie down, allow 3-4 hours before in lie down. And keep the head of bed above 30 degrees to avoid the acid from going up. (8) Hypercholesterolemia: Code(s): E78.00 - Pure hypercholesterolemia, unspecified Plan: Avoid fried foods, chicken skin, eggs, butter margarine, pastries and meat. Be it pork or beef they have a lot of cholesterol on simvastatin 20 mg once a day Medications: New amlodipine 5 mg PO DAILY 90 tabs 0RF gabapentin 300 mg PO BEDTIME 90 caps 0RF Refilled simvastatin 20 mg PO BEDTIME 90 tabs 3RF I10 - Essential (primary) hypertension omeprazole 20 mg PO DAILY 90 caps 3RF metoprolol succinate ER 50 mg PO DAILY 90 days 90 tabs 2RF I10 - Essential (primary) hypertension hydrochlorothiazide 25 mg PO DAILY 90 tabs 3RF Coding Level of Care Code Est Pt Level 4 (58206) Diagnoses Malignant neoplasm of upper-outer quadrant of left female breast, unspecified estrogen receptor status C50.412 Breast location: upper outer quadrant of breast Estrogen receptor status: unspecified Patient sex: female COVID-19 virus infection U07.1 Esophageal dysmotility K22.4 Essential hypertension I10 Class 3 severe obesity due to excess calories with serious comorbidity and body mass index (BMI) of 40.0 to 44.9 in adult E66.01; Z68.41 Obesity type: due to excess calories Obesity classification: adult class 3 (BMI >= 40) Serious obesity comorbidity presence: with serious comorbidity Body mass index: BMI 40.0-44.9 Cardiac pacemaker in situ Z95.0 Gastroesophageal reflux disease without esophagitis K21.9 Esophagitis presence: without esophagitis Hypercholesterolemia E78.00
== END 2023-04-14 16:05 | disposition home or self-care (01) ==
PROVIDERS: PCP Internal Medicine; Visit Provider Internal Medicine
DX: C50.412 Malignant neoplasm of upper-outer quadrant of left female breast (principal); E66.01 Morbid (severe) obesity due to excess calories; Z68.41 Body mass index [BMI] 40.0-44.9, adult; C67.9 Malignant neoplasm of bladder, unspecified; U07.1 COVID-19; K22.4 Dyskinesia of esophagus; Z95.0 Presence of cardiac pacemaker; I10 Essential (primary) hypertension; K21.9 Gastro-esophageal reflux disease without esophagitis; E78.00 Pure hypercholesterolemia, unspecified
CPT/HCPCS: 99214

== ENCOUNTER 2023-04-20 15:00 | Outpatient (AMB) | payer MEDICARE, SELFPAY ==
--- NOTE | 2023-04-20 15:17 | MHC.OFFVIS ---
Intake Vital Signs 04/20/23 15:21 Height 5 ft 1 in Weight 176 lb 5.917 oz BMI 33.3 BP 134/72 Blood Pressure Location Rt brachial Position Sitting Pulse 66 Intake Visit Reasons: 6 months followup w/medtronic check Intake Note: 6 month follow-up wtih Medtronic check hearts feeling good Electrician Radio Required: No Allergies No Known Allergies [No Known Allergies*] Allergy (Verified 04/14/23 15:19) Medication List - Last Reconciled 04/20/23 by Facundo Solis MD amlodipine 5 mg PO DAILY aspirin (Adult Low Dose Aspirin) 81 mg PO DAILY cholecalciferol (vitamin D3) 25 mcg PO DAILY coenzyme Q10 (Co Q-10) 100 mg PO DAILY cyanocobalamin (vitamin B-12) 1,000 mcg PO DAILY gabapentin 300 mg PO BEDTIME hydrochlorothiazide 25 mg PO DAILY meclizine 25 mg PO DAILY metoprolol succinate ER 50 mg PO DAILY 90 days nystatin 1 appl topical QID PRN omeprazole 20 mg PO DAILY polyethylene glycol 3350 (Miralax) 17 grams PO DAILY PRN propylene glycol 0.6% (Systane Balance) 1 drp ophthalmic (eye) DAILY PRN simvastatin 20 mg PO BEDTIME HPI HPI Comments History of Present Illness Details September comes for follow-up. She underwent breast cancer surgery recently and is doing well. No cardiac symptoms to report. Denies any significant chest pain. No shortness of breath, orthopnea, PND. No lightheadedness, syncope. Comes for pacemaker evaluation. Takes all her medications regularly. ON LICENSE OF [facility] Medical History (Updated 04/20/23 @ 17:48 by Facundo Solis MD) Chronic renal insufficiency HTN (hypertension) Cardiac pacemaker in situ AV block Leg edema Screening for diabetes mellitus On beta jake at home Arthritis Vertigo MARIELA (obstructive sleep apnea) Sick sinus syndrome Peripheral vascular disease Menieres disease Urinary bladder cancer Obesity Gout GERD (gastroesophageal reflux disease) Hypercholesterolemia Surgical History History of lumpectomy of left breast (03/10/23) History of esophagogastroduodenoscopy (EGD) S/P cardiac pacemaker procedure Hx of colonoscopy History of cystoscopy S/P MARION-BSO (total abdominal hysterectomy and bilateral salpingo-oophorectomy) History of cataract surgery History of knee replacement History of tonsillectomy History of appendectomy History of cholecystectomy Family History Father Stroke Mother Heart disease Social History Household Members: None Housing: Apartment Are you a primary primary care nurse practitioner to a significant other at home: No Do you presently have visiting nurse or other home services: No Alcohol intake: current Alcohol intake frequency: does not drink Patient Tobacco Use Status: Former Tobacco user Quit Date: age 57 Tobacco use type: Cigarette e-Cigarette/Vaping Use: Never Used Second Hand Smoke Exposure: No service: No Current occupational status: retired Cognitive needs: No Hearing needs: Yes Vision needs: Yes Review of Systems Const Denies chills, Denies fatigue, Denies fever(s), Denies frequent falls, Denies weakness, Denies weight gain and Denies weight loss ENT Denies dizziness Card Denies chest pain, Denies leg edema, Denies lightheadedness, Denies palpitations, Denies dyspnea, Denies dyspnea on exertion, Denies orthopnea and Denies other (loss of consciousness) Resp Denies cough, Denies dyspnea and Denies dyspnea on exertion GI Denies hematochezia and Denies change in stool character Musc Denies abnormal gait, Denies muscle weakness, Denies numbness, Denies radiating pain into limb and Denies tingling Neuro Denies Abnormal speech present, Denies abnormal gait, Denies dizziness, Denies frequent falls, Denies numbness, Denies tingling and Denies weakness Endo Denies fatigue and Denies palpitations Physical Exam Vital Signs: Last Vital Signs Pulse 66 04/20/23 15:21 BP 134/72 04/20/23 15:21 BMI result Body Mass Index 33.3 Const General: cooperative and no acute distress HEENT Other: Unremarkable Neck Neck: Yes normal visual inspection Chest Chest palpation & inspection: normal inspection of the chest Resp Auscultation: clear to auscultation bilaterally, no crackles and no wheezes Cardio Jugular venous distension: no JVD Palpation: normal PMI Heart sounds: S1 normal heart sound present, S2 normal heart sound present, no gallops, no murmurs and no rubs GI Palpation (GI): Soft to palpation Back/Spine/Pelvis Other: unremarkable Skin General skin exam: no rashes or lesions noted Neuro Cranial nerves: Yes Other cranial nerve findings present Speech: No Abnormal speech present Extrem General: No clubbing, No cyanosis and Yes edema ( Bilateral lymphedema, right greater than left) Psych Mental Status: other Office Procedures Cardiac Device Check Cardiac Device Check Details: Dual-chamber Medtronic pacemaker in place. Programmed in MVP mode with rate response at 50 beats per minute. Ventricular pacing 100% of the time. Atrial pacing 37% of time. No significant episodes of atrial fibrillation noted. Atrial pacing thresholds excellent and reprogrammed to enhance battery life. Ventricular pacing thresholds are stable. Atrial ventricular pacing lead impedance is stable. Ventricular sensing could not be checked. Battery life is at about 1 and half years [id number] Cardiac Device Check, pacemaker dual lead Procedure code (CPT) selection complete Assessment & Plan Assessment & Plan (1) Cardiac pacemaker in situ: Comment: Medtronic dual-chamber pacemaker in place Code(s): Z95.0 - Presence of cardiac pacemaker Plan: Cardiac pacemaker in-situ for complete heart block. Pacemaker is working well. Reprogrammed for adequate function. Will follow remotely every 3 months and follow up in the clinic in 6 months. Patient's pacer dependent in the ventricle. (2) Essential hypertension: Code(s): I10 - Essential (primary) hypertension Plan: Hypertension which is currently well controlled. Continue current therapy. Importance of good blood pressure control was discussed. Low-salt diet was discussed advised to monitor blood pressure at home maintain a log. Goal blood pressure less than 130/84. Follow up in the clinic in 6 months. Thank you for allowing me to partake in the care Coding Level of Care Code Est Pt Level 4 (84096) Diagnoses Cardiac pacemaker in situ Z95.0 Essential hypertension I10 CPT Codes Cardiac Device Check - Cardiac Device 2: [id number] Cardiac Device Check, pacemaker dual lead ([id number])
[2023-04-20 15:21] VITALS: BP 134/72; PULSE 66; BMI 33.3
== END 2023-04-20 15:45 | disposition home or self-care (01) ==
PROVIDERS: PCP Internal Medicine; Visit Provider Internal Medicine Cardiovascular Disease
DX: I10 Essential (primary) hypertension (principal); I44.30 Unspecified atrioventricular block; Z95.0 Presence of cardiac pacemaker
CPT/HCPCS: 93280; 99213

== ENCOUNTER → 2023-04-20 15:00 | Outpatient (BNVA) | payer MEDICARE, SELFPAY | PROVIDERS: PCP Internal Medicine; Visit Provider Internal Medicine Cardiovascular Disease | DX: Z45.018 Encounter for adjustment and management of other part of cardiac pacemaker (principal); I10 Essential (primary) hypertension | CPT/HCPCS: 93280; 99212 ==

== ENCOUNTER 2023-04-22 13:58 | Outpatient (AMB) | payer MEDICARE, SELFPAY ==
[2023-04-22 14:16] VITALS: BP 133/63; PULSE 87; BMI 33.3
--- NOTE | 2023-04-22 14:16 | MHC.OFFVIS ---
Intake Vital Signs 04/22/23 14:16 Height 5 ft 1 in Weight 176 lb 8 oz BMI 33.3 BP 133/63 Blood Pressure Location Lt brachial Position Sitting Pulse 87 Intake Visit Reasons: 1 mth follow up Lt breast lumpectomy w/seed,SN bx Intake Note: Patient is seen in office for one month follow up visit, post left breast lumpectomy. Pt c/o: area still feels sore, denies any other concerns Senior Qc Technician Required: No Product Development Technician: Product Development Technician Present Accompanied by: Self / Same As Patient Allergies No Known Allergies [No Known Allergies*] Allergy (Verified 04/14/23 15:19) HPI HPI Comments History of Present Illness Details 87-year-old female patient presenting with a recent mammogram dated 01/19/2023 with follow-up images obtained 02/01/2023 which revealed a suspicious density in the left breast at the upper outer quadrant. Subsequent workup with ultrasound at the upper outer quadrant of left breast revealed a 14 x 11 x 9 mm irregular hypoechoic mass in the 02:00 o'clock region of the left breast, 7 cm from the nipple. This was highly suggestive of malignancy and ultrasound-guided biopsy recommended (BI-RADS 5). She denies a prior history of breast problems or breast surgery. She denies any ongoing breast symptoms at this time. Her family history is positive for a sister having breast cancer. She is G0. She underwent an ultrasound-guided core biopsy at the [facility] on 10/12/2022. 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 she returns today 1 week following left breast lumpectomy with localizer, sentinel node biopsy using Magtrace. She tolerated the procedure well and denies any ongoing breast symptoms. Oncotype DX recurrence score is 14 with a 4% 9 year distant recurrence risk and absolute benefit of chemotherapy at less than 1%. She is due to follow up with Dr. Smith later this month to discuss treatment options. She does know swelling in the left breast which feels much heavier than the right side. [facility] Medical History Chronic renal insufficiency HTN (hypertension) Cardiac pacemaker in situ AV block Leg edema Screening for diabetes mellitus On beta jake at home Arthritis Vertigo MARIELA (obstructive sleep apnea) Sick sinus syndrome Peripheral vascular disease Menieres disease Urinary bladder cancer Obesity Gout GERD (gastroesophageal reflux disease) Hypercholesterolemia Surgical History History of lumpectomy of left breast (03/10/23) History of esophagogastroduodenoscopy (EGD) S/P cardiac pacemaker procedure Hx of colonoscopy History of cystoscopy S/P MARION-BSO (total abdominal hysterectomy and bilateral salpingo-oophorectomy) History of cataract surgery History of knee replacement History of tonsillectomy History of appendectomy History of cholecystectomy Family History Father Stroke Mother Heart disease Social History Household Members: None Housing: Apartment Are you a primary acute care clinical nurse specialist to a significant other at home: No Do you presently have visiting nurse or other home services: No Alcohol intake: current Alcohol intake frequency: does not drink Patient Tobacco Use Status: Former Tobacco user Quit Date: age 57 Tobacco use type: Cigarette e-Cigarette/Vaping Use: Never Used Second Hand Smoke Exposure: No service: No Current occupational status: retired Cognitive needs: No Hearing needs: Yes Vision needs: Yes Physical Exam Vital Signs: Last Vital Signs Pulse 87 04/22/23 14:16 BP 133/63 04/22/23 14:16 BMI result Body Mass Index 33.3 Const General: comfortable Nutritional Appearance: well nourished Orientation/consciousness: patient oriented x3 Chest Other: Left breast incisions are clean, dry, and intact. There is a large seroma located in the left breast. Needle aspiration was performed with a proximally 240 mL of clear serous fluid. She tolerated the aspiration well. Chest/axillae images: 1. Seroma left breast Resp Effort & Inspection: normal respiratory effort Skin General skin exam: no rashes or lesions noted Neuro General: patient oriented x3 Assessment & Plan Assessment & Plan (1) Invasive ductal carcinoma of left breast: Code(s): C50.912 - Malignant neoplasm of unspecified site of left female breast Plan 87-year-old female patient presenting with a large seroma of the left breast. Aspiration today produced 240 mL of clear serous fluid. She will return in 1 week for follow-up examination and possible repeat aspiration. Coding Level of Care Code Global (36410) Diagnoses Invasive ductal carcinoma of left breast C50.912
== END 2023-04-22 14:36 | disposition home or self-care (01) ==
PROVIDERS: PCP Internal Medicine; Visit Provider Surgery
DX: C50.912 Malignant neoplasm of unspecified site of left female breast (principal)
CPT/HCPCS: 99024

== ENCOUNTER → 2023-04-22 13:58 | Outpatient (BNVA) | payer MEDICARE, SELFPAY | PROVIDERS: PCP Internal Medicine; Visit Provider Surgery | DX: C50.912 Malignant neoplasm of unspecified site of left female breast (principal) | CPT/HCPCS: 99212 ==

== ENCOUNTER 2023-04-29 14:25 | Outpatient (AMB) | payer MEDICARE, SELFPAY ==
--- NOTE | 2023-04-29 14:27 | MHC.OFFVIS ---
Intake Vital Signs 04/29/23 14:38 Height 5 ft 1 in Weight 175 lb BMI 33.1 BP 120/80 Blood Pressure Location Lt brachial Position Sitting Intake Visit Reasons: one week post Lt breast lumpectomy Intake Note: Patient is seen in office for one week follow up visit, following needle aspiration post left breast lumpectomy. 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 Required: No Accompanied by: Self / Same As Patient Allergies No Known Allergies [No Known Allergies*] Allergy (Verified 04/29/23 14:37) Medication List - Last Reconciled 04/29/23 by Lalo Correia MD amlodipine 5 mg PO DAILY aspirin (Adult Low Dose Aspirin) 81 mg PO DAILY cholecalciferol (vitamin D3) 25 mcg PO DAILY coenzyme Q10 (Co Q-10) 100 mg PO DAILY cyanocobalamin (vitamin B-12) 1,000 mcg PO DAILY gabapentin 300 mg PO BEDTIME hydrochlorothiazide 25 mg PO DAILY meclizine 25 mg PO DAILY metoprolol succinate ER 50 mg PO DAILY 90 days nystatin 1 appl topical QID PRN omeprazole 20 mg PO DAILY polyethylene glycol 3350 (Miralax) 17 grams PO DAILY PRN propylene glycol 0.6% (Systane Balance) 1 drp ophthalmic (eye) DAILY PRN simvastatin 20 mg PO BEDTIME HPI HPI Comments History of Present Illness Details 87-year-old female patient presenting with a mammogram dated 01/19/2023 with follow-up images obtained 02/01/2023 which revealed a suspicious density in the left breast at the upper outer quadrant. Subsequent workup with ultrasound at the upper outer quadrant of left breast revealed a 14 x 11 x 9 mm irregular hypoechoic mass in the 02:00 o'clock region of the left breast, 7 cm from the nipple. This was highly suggestive of malignancy and ultrasound-guided biopsy recommended (BI-RADS 5). She denies a prior history of breast problems or breast surgery. She denies any ongoing breast symptoms at this time. Her family history is positive for a sister having breast cancer. She is G0. She underwent an ultrasound-guided core biopsy at the [facility] on 10/12/2022. 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 She underwent a left breast lumpectomy with localizer, sentinel node biopsy using Magtrace on 03/10/2023. Pathology revealed: Invasive ductal carcinoma, MSBR grade 3, 2.5 cm in size; negative margins (1.5 mm to anterior). - Biopsy site changes. - pT2 N0(sn)(i-) AJCC Stage 8th ed. B. Soft tissue, axillary contents: Fibrovascular and adipose tissue within normal limits; no lymph nodes identified. C. Lymph node, sentinel #1, excision: One lymph node negative for metastatic carcinoma. D. Lymph node, sentinel #2, excision: Fibrovascular and adipose tissue within normal limits; no lymph nodes identified. Ancillary studies: ER positive, IA positive, HER2 negative, high proliferation Oncotype DX recurrence score is 14 with a 4% 9 year distant recurrence risk and absolute benefit of chemotherapy at less than 1%. She is due to follow up with Dr. Smith later this month to discuss treatment options. She underwent a needle aspiration of a seroma last week but reports feeling improved this week. She denies any new breast symptoms. [facility] Medical History Chronic renal insufficiency HTN (hypertension) Cardiac pacemaker in situ AV block Leg edema Screening for diabetes mellitus On beta jake at home Arthritis Vertigo MARIELA (obstructive sleep apnea) Sick sinus syndrome Peripheral vascular disease Menieres disease Urinary bladder cancer Obesity Gout GERD (gastroesophageal reflux disease) Hypercholesterolemia Surgical History History of lumpectomy of left breast (03/10/23) History of esophagogastroduodenoscopy (EGD) S/P cardiac pacemaker procedure Hx of colonoscopy History of cystoscopy S/P MARION-BSO (total abdominal hysterectomy and bilateral salpingo-oophorectomy) History of cataract surgery History of knee replacement History of tonsillectomy History of appendectomy History of cholecystectomy Family History Father Stroke Mother Heart disease Social History Household Members: None Housing: Apartment Are you a primary congregational care pastor to a significant other at home: No Do you presently have visiting nurse or other home services: No Alcohol intake: current Alcohol intake frequency: does not drink Patient Tobacco Use Status: Former Tobacco user Quit Date: age 57 Tobacco use type: Cigarette e-Cigarette/Vaping Use: Never Used Second Hand Smoke Exposure: No service: No Current occupational status: retired Cognitive needs: No Hearing needs: Yes Vision needs: Yes Physical Exam Vital Signs: Last Vital Signs BP 120/80 04/29/23 14:38 BMI result Body Mass Index 33.1 Const General: comfortable Nutritional Appearance: well nourished Orientation/consciousness: patient oriented x3 Chest Other: Left breast incisions are clean, dry, and intact. A small residual seroma is noted in both the breast and axilla but no skin redness or discharge appreciated. No aspiration was performed today. Resp Effort & Inspection: normal respiratory effort Skin General skin exam: no rashes or lesions noted Neuro General: patient oriented x3 Assessment & Plan Assessment & Plan (1) Invasive ductal carcinoma of left breast: Code(s): C50.912 - Malignant neoplasm of unspecified site of left female breast Plan 87-year-old female presenting with a left breast carcinoma status post lumpectomy LOCalizer and sentinel node biopsy. She is being evaluated by Medical Oncology (Luis) for possible adjuvant antiestrogen therapy. Her wounds are clean and intact today with a small seroma which will be observed. I have asked her to return approximately 3 months, sooner p.r.n.. Coding Level of Care Code Global (15816) Diagnoses Invasive ductal carcinoma of left breast C50.912
[2023-04-29 14:38] VITALS: BP 120/80; BMI 33.1
== END 2023-04-29 14:46 | disposition home or self-care (01) ==
PROVIDERS: PCP Internal Medicine; Visit Provider Surgery
DX: C50.912 Malignant neoplasm of unspecified site of left female breast (principal)
CPT/HCPCS: 99024

== ENCOUNTER → 2023-04-29 14:25 | Outpatient (BNVA) | payer MEDICARE, SELFPAY | PROVIDERS: PCP Internal Medicine; Visit Provider Surgery | DX: C50.412 Malignant neoplasm of upper-outer quadrant of left female breast (principal) | CPT/HCPCS: 99212 ==

== ENCOUNTER 2023-05-06 08:09 | Day surgery (SDC) | payer MEDICARE, SELFPAY ==
--- NOTE | 2023-05-05 12:12 | HO.ANESPROP2 ---
Documented by User: Sade Albarado NP 05/05/23 12:16 HPI - Anesthesia Eval Consult details Narrative: 87yo F for Upper Endoscopy with dialation s/p L breast 02/2023 with GA-LMA 4 Follows [facility] cardiology. Cleared prior to breast surgery. Last office visit 04/2023. Stable and ok for 6 month f/u. Pacer in situ. Interrogation below. [facility] Active Problems Active Problems: All Active Problems (Updated 04/22/23 @ 14:34 by Lalo Correia MD) Invasive ductal carcinoma of left breast (Acute) COVID-19 virus infection (Acute) Physical deconditioning (Acute) Multiple falls (Acute) Breast cancer, left (Acute) Abnormal mammogram of left breast (Acute) Abnormal ultrasound of breast (Acute) Screening for breast cancer (Acute) Unintentional weight loss (Acute) Dysphagia (Acute) Esophageal dysmotility (Acute) Renal insufficiency (Acute) Complicated urinary tract infection (Acute) Eczema (Acute) Constipation (Acute) Lymphedema of both lower extremities (Acute) Numbness of left hand (Acute) Other and unspecified hyperlipidemia (Acute) Essential hypertension (Acute) Normally functioning cardiac pacemaker present (Acute) Adult general medical exam (Acute) Post-menopausal (Acute) Tinea corporis (Acute) Left wrist pain (Acute) Rosacea (Acute) Impaired fasting blood sugar (Acute) Vitamin B 12 deficiency (Acute) Cardiac pacemaker in situ (Acute) AV block (Acute) Peripheral vascular disease (Acute) Urinary bladder cancer (Acute) Obesity (Acute) Gout (Acute) GERD (gastroesophageal reflux disease) (Acute) Hypercholesterolemia (Acute) Past Medical History Medical History Chronic renal insufficiency HTN (hypertension) Cardiac pacemaker in situ AV block Leg edema Screening for diabetes mellitus On beta jake at home Arthritis Vertigo MARIELA (obstructive sleep apnea) Sick sinus syndrome Peripheral vascular disease Menieres disease Urinary bladder cancer Obesity Gout GERD (gastroesophageal reflux disease) Hypercholesterolemia Family History Family History Father Stroke Mother Heart disease Family history of problems with anesthesia: No Surgical History Surgical History History of lumpectomy of left breast (03/10/23) History of esophagogastroduodenoscopy (EGD) S/P cardiac pacemaker procedure Hx of colonoscopy History of cystoscopy S/P MARION-BSO (total abdominal hysterectomy and bilateral salpingo-oophorectomy) History of cataract surgery History of knee replacement History of tonsillectomy History of appendectomy History of cholecystectomy History of Problems with Anesthesia: No Social History Social History Household Members: None Housing: Apartment Are you a primary lawn caretaker to a significant other at home: No Do you presently have visiting nurse or other home services: No Alcohol intake: current Alcohol intake frequency: does not drink Patient Tobacco Use Status: Former Tobacco user Quit Date: age 57 Tobacco use type: Cigarette e-Cigarette/Vaping Use: Never Used Second Hand Smoke Exposure: No Advance Directives: No Advance Directives Information Provided: Yes service: No Current occupational status: retired Cognitive needs: No Hearing needs: Yes Vision needs: Yes Meds Allergies Allergy/AdvReac Type Severity Reaction Status Date / Time No Known Allergies Allergy Verified 05/06/23 08:20 [No Known Allergies*] Home Medications Medication Instructions Recorded Confirmed Last Taken Type aspirin 81 mg tablet,delayed 81 mg PO DAILY 03/11/20 05/06/23 05/05/23 History release (Adult Low Dose Aspirin) cholecalciferol (vitamin D3) 25 25 mcg PO DAILY 03/11/20 05/06/23 03/24/23 History mcg (1,000 unit) capsule coenzyme Q10 100 mg capsule (Co 100 mg PO DAILY 03/11/20 05/06/23 03/24/23 History Q-10) polyethylene glycol 3350 17 gram 17 g PO DAILY PRN Constipation 02/24/23 05/06/23 Unknown History oral powder packet (Miralax) propylene glycol 0.6 % eye drops 1 drp ophthalmic (eye) DAILY PRN 02/24/23 05/06/23 Unknown History (Systane Balance) Dry Eyes nystatin 100,000 unit/gram topical 1 appl topical QID PRN Rash 03/25/23 05/06/23 Unknown History powder Exam Pertinent Lab Results Pertinent Lab Results: Laboratory Tests 04/13/23 14:29 WBC 8.2 Hgb 12.7 Hct 38.6 Plt Count 438 H D Sodium 141 Potassium 3.7 Chloride 100 Carbon Dioxide 31 H BUN 21 H Creatinine 1.21 Narrative Narrative: Cardiac Device Check 04/2023 Details: Dual-chamber Medtronic pacemaker in place. Programmed in MVP mode with rate response at 50 beats per minute. Ventricular pacing 100% of the time. Atrial pacing 37% of time. No significant episodes of atrial fibrillation noted. Atrial pacing thresholds excellent and reprogrammed to enhance battery life. Ventricular pacing thresholds are stable. Atrial ventricular pacing lead impedance is stable. Ventricular sensing could not be checked. Battery life is at about 1 and half years EKG 03/2023 Vent. Rate : 063 BPM Atrial Rate : 063 BPM P-R Int : 400 ms QRS Dur : 168 ms QT Int : 472 ms P-R-T Axes : 000 214 030 degrees QTc Int : 483 ms Atrial-sensed ventricular-paced rhythm with prolonged AV conduction Abnormal ECG When compared with ECG of 11-DEC-2015 15:27, No significant changes seen NM cardiolite stress test 02/2023 Impression: 1. Myocardial perfusion imaging study shows probably normal myocardial perfusion. 2. Gated LVEF is 74% rest at 71% during stress and 74% during rest. 3. Transient ischemic dilatation not present. EKG component of the test reported separately. Assessment and Plan Assessment Anesthesia Assessment: Chart Reviewed Final Anesthetic Review Family History of Problems with Anesthesia: No History of Problems with Anesthesia: No Documented by User: Rafaela Morrison MD 05/06/23 08:30 [facility] Past Medical History Medical History Chronic renal insufficiency HTN (hypertension) Cardiac pacemaker in situ AV block Leg edema Screening for diabetes mellitus On beta jake at home Arthritis Vertigo MARIELA (obstructive sleep apnea) Sick sinus syndrome Peripheral vascular disease Menieres disease Urinary bladder cancer Obesity Gout GERD (gastroesophageal reflux disease) Hypercholesterolemia Family History Family History Father Stroke Mother Heart disease Surgical History Surgical History History of lumpectomy of left breast (03/10/23) History of esophagogastroduodenoscopy (EGD) S/P cardiac pacemaker procedure Hx of colonoscopy History of cystoscopy S/P MARION-BSO (total abdominal hysterectomy and bilateral salpingo-oophorectomy) History of cataract surgery History of knee replacement History of tonsillectomy History of appendectomy History of cholecystectomy Social History Social History Household Members: None Housing: Apartment Are you a primary lawn caretaker to a significant other at home: No Do you presently have visiting nurse or other home services: No Alcohol intake: current Alcohol intake frequency: does not drink Patient Tobacco Use Status: Former Tobacco user Quit Date: age 57 Tobacco use type: Cigarette e-Cigarette/Vaping Use: Never Used Second Hand Smoke Exposure: No Advance Directives: No Advance Directives Information Provided: Yes service: No Current occupational status: retired Cognitive needs: No Hearing needs: Yes Vision needs: Yes Meds Allergies Allergy/AdvReac Type Severity Reaction Status Date / Time No Known Allergies Allergy Verified 05/06/23 08:20 [No Known Allergies*] Home Medications Medication Instructions Recorded Confirmed Last Taken Type aspirin 81 mg tablet,delayed 81 mg PO DAILY 03/11/20 05/06/23 05/05/23 History release (Adult Low Dose Aspirin) cholecalciferol (vitamin D3) 25 25 mcg PO DAILY 03/11/20 05/06/23 03/24/23 History mcg (1,000 unit) capsule coenzyme Q10 100 mg capsule (Co 100 mg PO DAILY 03/11/20 05/06/23 03/24/23 History Q-10) polyethylene glycol 3350 17 gram 17 g PO DAILY PRN Constipation 02/24/23 05/06/23 Unknown History oral powder packet (Miralax) propylene glycol 0.6 % eye drops 1 drp ophthalmic (eye) DAILY PRN 02/24/23 05/06/23 Unknown History (Systane Balance) Dry Eyes nystatin 100,000 unit/gram topical 1 appl topical QID PRN Rash 12/14/23 01/25/24 Unknown History powder Exam Airway Mallampati Class: II TM Dist: >3cm Neck ROM: Limited Denture: Upper and Lower Heart: paced rythm Lungs: cta Assessment and Plan Assessment Anesthesia Assessment: Anesthesia Plan Discussed Final Anesthetic Review NPO: Yes ASA Class: III Final Preanesthetic Review: No Changes in Pt Med Stat, Meds/Allgs Chart Reviewed, Consent Obtained/Reviewed and Anes Risks/Benef Reviewed Patient Risk: High Procedure Risk: Low Anesthetic Plan Anesthetic Plan: MAC: Disposition: Standard PACU
[2023-05-06 08:24] VITALS: BMI 32.8
--- NOTE | 2023-05-06 08:30 | MHC.SHP ---
Pre-Procedural Eval Section A Date of Service: 05/06/23 Section B Chief Complaint: Dysphagia, unspecified Relevant Family History (Specify if Yes): No Relevant Social History: None Present Medications: see Short Stay Collaborative assessment Medical History: Significant History ( Chronic renal insufficiency HTN (hypertension) Cardiac pacemaker in situ AV block Leg edema Screening for diabetes mellitus On beta jake at home Arthritis Vertigo MARIELA (obstructive sleep apnea) Sick sinus syndrome Peripheral vascular disease Menieres disease Urinary bladder cancer Obesity Gout GE) History of Previous Operations: Relevant previous surgery/procedure and date(s) (History of lumpectomy of left breast (03/10/23) History of esophagogastroduodenoscopy (EGD) S/P cardiac pacemaker procedure Hx of colonoscopy History of cystoscopy S/P MARION-BSO (total abdominal hysterectomy and bilateral salpingo-oophorectomy) History of cataract surgery History of knee replacement H) Allergies: Allergies Allergy/AdvReac Type Severity Reaction Status Date / Time No Known Allergies Allergy Verified 05/06/23 08:20 [No Known Allergies*] Review of Systems Sugical H&P ROS: Negative: Constitution, Cardiovascular, Respiratory, Neurological, Psychiatric, Hem-Onc, Allergic/Immunologic, Gastrointestinal, Genitourinary, Musculoskeletal, Integumentary, Endocrine and Eyes/Ears/Nose/Throat Exam Surgical H&P Exam: Normal: HEENT, Normal: Heart, Normal: Lungs, Normal: Extremities, Normal: Abdomen, Normal: Skin and Normal: Neurological Exam Comment: pacemaker noted, frail, uses komal frame Plan Diagnosis/Plan: Unchanged I have reviewed the history and physical and performed a pertinent physical examination on my patient. No changes have occurred unless specified. Time Spent With Patient Time: Total time managing care of this patient today ____ minutes.
[2023-05-06 08:33] VITALS: RESP 16
[2023-05-06] MEDS: Lactated Ringers 1,000 ML 100 ML IVCONT (08:45)
--- NOTE | 2023-05-06 09:14 | W.PM.OPN ---
Operative Note Operative Note Date of Service: 05/06/23 Narrative: Procedure Description: EGD Indication: dysphagia Anesthesia: MAC FLEXIBLE TRANSORAL UPPER GASTROINTESTINAL ENDOSCOPY UPPER ENDOSCOPY Consent: Indications for the procedure and potential complications of bleeding, perforation, reaction to medications and missed diagnosis were discussed with the patient and informed consent was obtained. Instrument: Olympus GIF H 190 J mid size upper endoscope Monitoring: Vital signs and clinical assessment, continuous EKG monitoring, Pulse oximetry, Carbon Dioxide monitoring and blood pressure monitoring were done throughout the procedure. Procedure: The patient was placed in the left lateral decubitis position and pre-procedure medications were administered and a bite block was placed. The endoscope was inserted into the mouth and advanced under direct vision to the third part of duodenum. A careful inspection was made as the upper endoscope was withdrawn including a retroflexed examination of the proximal stomach; Findings and interventions are described below. 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 Grade 2 flap valve on retroflexed examination of the cardia. random stomach bx taken as well Duodenum: Normal bulb and descending duodenum, Intervention: Biopsies as noted above, cold snare polypectomy, balloon dilation Impression/Findings: gastric polyps GAVE - gastric antral vascualr ectasia PLAN: await bx, can bring back for further dilation depending on response
[2023-05-06 09:29] VITALS: BP 105/48; PULSE 56; RESP 16; TEMP 36.1; O2SAT 100
[2023-05-06 09:44] VITALS: BP 98/43; PULSE 58; RESP 16; TEMP 36.6; O2SAT 96
== END 2023-05-06 10:25 | disposition home or self-care (01) ==
PROVIDERS: PCP Internal Medicine; Visit Provider Internal Medicine Gastroenterology
PROC: 0DJ08ZZ Inspection of Upper Intestinal Tract, Via Natural or Artificial Opening Endoscopic (ICD-10-PCS; CPT 43235; principal; 2023-05-06 10:20)
DX: R13.10 Dysphagia, unspecified (principal); K31.819 Angiodysplasia of stomach and duodenum without bleeding; K31.7 Polyp of stomach and duodenum; K44.9 Diaphragmatic hernia without obstruction or gangrene; I12.9 Hypertensive chronic kidney disease with stage 1 through stage 4 chronic kidney disease, or unspecified chronic kidney disease; N18.9 Chronic kidney disease, unspecified; C67.9 Malignant neoplasm of bladder, unspecified; I44.30 Unspecified atrioventricular block; I49.5 Sick sinus syndrome; Z95.0 Presence of cardiac pacemaker; I73.9 Peripheral vascular disease, unspecified; G47.33 Obstructive sleep apnea (adult) (pediatric); Z79.630 Long term (current) use of alkylating agent; Z79.899 Other long term (current) drug therapy; Z87.891 Personal history of nicotine dependence; Z98.890 Other specified postprocedural states; Z66 Do not resuscitate
CPT/HCPCS: 43249; 43251; 43239; 88305; 88313; 88342; C1726; J1596; J2704

== ENCOUNTER → 2023-05-06 08:09 | Outpatient (BNV) | payer MEDICARE, SELFPAY | PROVIDERS: PCP Internal Medicine; Visit Provider Internal Medicine Gastroenterology | DX: R13.10 Dysphagia, unspecified (principal); K31.7 Polyp of stomach and duodenum; K31.819 Angiodysplasia of stomach and duodenum without bleeding | CPT/HCPCS: 43239; 43249; 43251 ==

== ENCOUNTER 2023-05-12 13:08 | Outpatient (AMB) | payer MEDICARE, SELFPAY ==
[2023-05-12 13:09] VITALS: BP 98/66; PULSE 57; O2SAT 98; BMI 32.7
--- NOTE | 2023-05-12 13:09 | MHC.PC.OV ---
Vital Signs 05/12/23 13:09 05/12/23 13:53 Height 5 ft 1 in Weight 173 lb 0.4 oz BMI 32.7 BP 98/66 120/80 Blood Pressure Location Lt brachial Lt brachial Position Sitting Sitting Pulse 57 Pulse Source Pulse Oximeter Pulse Oximetry (%) 98 Oxygen Delivery Method Room Air Intake Visit Reasons: f/u for recent Upper Endoscopy procedure Intake Note: Patient is here to follow up on recent upper endoscopy procedure. Weight Caller Required: No Allergies No Known Allergies [No Known Allergies*] Allergy (Verified 05/12/23 13:18) Tobacco use date assessed: 05/12/23 Fall risk assessment: No Falls in past year Last assessed Fall Risk: 05/12/23 Dental Screening Dental Screen Date: 05/12/23 Did you have a dental visit in the last 12 months?: No Did you have a dental problem in the last 6 months where you did not have access to dental care?: No HPI f/u for recent Upper Endoscopy procedure HPI Details 87-year-old obese female with left breast cancer, esophageal dysmotility hypertension GERD hypercholesterolemia coming in for follow-up. Last seen in 04/14/2023. 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 February 2023 underwent left breast lumpectomy with sentinel node biopsy revealing invasive ductal carcinoma declined adjuvant radiation therapy advised letrozole 2.5 mg once a day for 5 years. Patient had some dysphagia and was referred to Gastroenterology EGD done showing gastric polyps balloon dilatation done biopsy results showing mild chronic inactive inflammation no H pylori. Patient also follows up with Cardiology [facility] Medical History Chronic renal insufficiency HTN (hypertension) Cardiac pacemaker in situ AV block Leg edema Screening for diabetes mellitus On beta jake at home Arthritis Vertigo MARIELA (obstructive sleep apnea) Sick sinus syndrome Peripheral vascular disease Menieres disease Urinary bladder cancer Obesity Gout GERD (gastroesophageal reflux disease) Hypercholesterolemia Surgical History History of lumpectomy of left breast (03/10/23) History of esophagogastroduodenoscopy (EGD) S/P cardiac pacemaker procedure Hx of colonoscopy History of cystoscopy S/P MARION-BSO (total abdominal hysterectomy and bilateral salpingo-oophorectomy) History of cataract surgery History of knee replacement History of tonsillectomy History of appendectomy History of cholecystectomy Family History Father Stroke Mother Heart disease Social History Household Members: None Housing: Apartment Are you a primary coronary care unit nurse to a significant other at home: No Do you presently have visiting nurse or other home services: No Alcohol intake: current Alcohol intake frequency: does not drink Patient Tobacco Use Status: Former Tobacco user Quit Date: 50 yrs ago Tobacco use type: Cigarette e-Cigarette/Vaping Use: Never Used Second Hand Smoke Exposure: No service: No Current occupational status: retired Cognitive needs: No Hearing needs: Yes Vision needs: Yes Questionnaire Thrive Questionnaire Date Thrive assessed: 05/12/23 AUDIT C Alcohol Use Questionnaire (AUDIT-C) 1. How often do you have a drink containing alcohol?: Never 3. How often do you have six or more drinks on one occasion?: Never Total Score: 0 DESI-7 AMB Questionnaire DESI-7 Date DESI - 7 assessed: 05/12/23 Source: Developed by Drs. Wilver Hightower, Tanya Bardales, Thomas Perry and colleagues, with an educational mike from [employer]. Physical exam (Primary Care) Vital Signs: Last Vital Signs Pulse 57 05/12/23 13:09 BP 98/66 05/12/23 13:09 Pulse Ox 98 05/12/23 13:09 Oxygen Delivery Method Room Air 05/12/23 13:09 BMI result Body Mass Index 32.7 Tobacco/Smoking Status: Tobacco use Status Tobacco use date assessed 05/12/23 05/12/23 13:11 Patient Tobacco Use Status Former Tobacco user 05/12/23 13:11 Tobacco use type Cigarette 05/12/23 13:11 e-Cigarette/Vaping Use Never Used 05/12/23 13:11 Thrive Assessment: Date of Thrive Assessment Date Thrive assessed 05/12/23 05/12/23 13:11 Const General: alert; No acute distress Eyes Conjunctivae: conjunctivae normal Resp Auscultation: clear to auscultation bilaterally Cardio Rate: regular rate Rhythm: regular rhythm GI Inspection: Yes normal to inspection Extrem General: Yes normal to inspection and No edema Assessment and Plan Assessment & Plan (1) Invasive ductal carcinoma of left breast: Comment: Left breast lumpectomy February 2023 Code(s): C50.912 - Malignant neoplasm of unspecified site of left female breast Plan: Patient follows up with Hematology-Oncology and the surgeon placed on letrozole (2) Dysphagia: Code(s): R13.10 - Dysphagia, unspecified Plan: Omeprazole and had EGD done with dilatation. Chronic inactive gastritis (3) GERD (gastroesophageal reflux disease): Code(s): K21.9 - Gastro-esophageal reflux disease without esophagitis Qualifiers: Esophagitis presence: without esophagitis Qualified Code(s): K21.9 - Gastro-esophageal reflux disease without esophagitis Plan: Avoid the foods that causes that usually spicy foods, tomato products, juices, coffee, soda and foods that your sensitive to. After eating do not lie down, allow 3-4 hours before in lie down. And keep the head of bed above 30 degrees to avoid the acid from going up. On omeprazole (4) Hypercholesterolemia: Code(s): E78.00 - Pure hypercholesterolemia, unspecified Plan: Avoid fried foods, chicken skin, eggs, butter margarine, pastries and meat. Be it pork or beef they have a lot of cholesterol LDL goal of less than 70 and triglyceride of less than 150 on simvastatin 20 mg once a day (5) Essential hypertension: Code(s): I10 - Essential (primary) hypertension Plan: conc bradley on Blood pressure - advised to monitor for now and record and if getting low BP will decreased Medications: Refilled cyanocobalamin (vitamin B-12) 1,000 mcg PO DAILY 90 caps 3RF E53.8 - Deficiency of other specified B group vitamins, [id number] - Chronic gout, unspecified, without tophus (tophi) Coding Level of Care Code Est Pt Level 4 (09790) Diagnoses Invasive ductal carcinoma of left breast C50.912 Dysphagia R13.10 Gastroesophageal reflux disease without esophagitis K21.9 Esophagitis presence: without esophagitis Hypercholesterolemia E78.00 Essential hypertension I10
[2023-05-12 13:53] VITALS: BP 120/80
== END 2023-05-12 14:06 | disposition home or self-care (01) ==
PROVIDERS: PCP Internal Medicine; Visit Provider Internal Medicine
DX: C50.912 Malignant neoplasm of unspecified site of left female breast (principal); R13.10 Dysphagia, unspecified; K21.9 Gastro-esophageal reflux disease without esophagitis; E78.00 Pure hypercholesterolemia, unspecified; I10 Essential (primary) hypertension
CPT/HCPCS: 99214

== ENCOUNTER 2023-05-19 14:07 | Outpatient (AMB) | payer MEDICARE, SELFPAY ==
--- NOTE | 2023-05-19 14:09 | A.OFFVIS_ITS ---
Intake Vital Signs 05/19/23 14:12 Height 5 ft 1 in Weight 173 lb 11.588 oz BMI 32.8 BP 119/69 Blood Pressure Location Lt brachial Position Sitting Pulse 86 Intake Visit Reasons: S/P [place]; Dr. Jack Intake Note: Patient here s/p Upper endoscopy with Dr. Jack on 05-06-23. Patient reports no problems after procedure. Train Director Required: No Accompanied by: Self / Same As Patient Allergies No Known Allergies [No Known Allergies*] Allergy (Verified 05/19/23 14:15) HPI HPI Comments History of Present Illness Details This is an 87 y.o F with PMH of bladder ca on gemcitabine and TURBT (Dr Dowell), CHB s/p dual chamber pacemaker, HTN, known esophageal dysmotility who is here for dysphagia. 12/07/22: Hx was obtained from the pt who states that around 2018 she started noticing difficulty swallowing food. Greg solid foods seems to get stuck in upper esophagus. Has frequent regurgi with liquids. Had a barium swallow at [facility] which showed severe dysmotility. However she never actually followed up with the gastroenterology. Has a remote hx of upper endoscopy which was likely done before this issue started. Most of the foods that bother her are broccoli, chicken, bread. Has had weight loss of almost 50 lbs in the past one year but unsure if due to bladder ca as does not have the appetite to eat. Last colonoscopy was almost 11 years ago in [place]. No fam hx of CRC. 02/24/23: Patient is here for follow-up after completing modified barium swallow as well as a CT chest. Possible goiter noted on CT chest but otherwise no abnormal findings to explain dysphagia. She was noted to have laryngeal penetration on modified barium swallow and speech therapy recommended dysphagia level 3 diet. Of note patient has recently been diagnosed with left-sided breast cancer and scheduled to under lumpectomy later this month. Otherwise, does not report any changes in her swallowing since the last time. Previously had reported remarkable weight loss when she was initially seen, however compared to November, weight curve has remained stable. 05/06/23: EGD with balloon dilation (Dr. Jack): No EoE on biopsies. Lower and upper esophagus dilated to 16 mm, no tears. GAVE. Hyperplastic polyps. 05/19/23: Seen in office for follow-up today. Also established with Dr. Correia and Dr. Smith for breast cancer. Does not report any significant difference since endoscopy with dilation. However, continues to modulate her diet on her own. Avoids any hard vegetables. Likes broccoli, but makes sure to remove all stems and consumes small floor it is only. Weight down by 3 lb since January. [facility] Medical History Chronic renal insufficiency HTN (hypertension) Cardiac pacemaker in situ AV block Leg edema Screening for diabetes mellitus On beta jake at home Arthritis Vertigo MARIELA (obstructive sleep apnea) Sick sinus syndrome Peripheral vascular disease Menieres disease Urinary bladder cancer Obesity Gout GERD (gastroesophageal reflux disease) Hypercholesterolemia Surgical History History of lumpectomy of left breast (03/10/23) History of esophagogastroduodenoscopy (EGD) S/P cardiac pacemaker procedure Hx of colonoscopy History of cystoscopy S/P MARION-BSO (total abdominal hysterectomy and bilateral salpingo-oophorectomy) History of cataract surgery History of knee replacement History of tonsillectomy History of appendectomy History of cholecystectomy Family History Father Stroke Mother Heart disease Social History Household Members: None Housing: Apartment Are you a primary director of healthcare systems to a significant other at home: No Do you presently have visiting nurse or other home services: No Alcohol intake: current Alcohol intake frequency: does not drink Patient Tobacco Use Status: Former Tobacco user Quit Date: 50 yrs ago Tobacco use type: Cigarette e-Cigarette/Vaping Use: Never Used Second Hand Smoke Exposure: No service: No Current occupational status: retired Cognitive needs: No Hearing needs: Yes Vision needs: Yes Review of Systems Const All systems reviewed & are unremarkable except as noted in HPI and below Physical Exam Vital Signs: Last Vital Signs Pulse 86 05/19/23 14:12 BP 119/69 05/19/23 14:12 BMI result Body Mass Index 32.8 Elderly, well-appearing Speaking in full sentences Normal respiratory effort Ambulates with the assistance Assessment & Plan Assessment & Plan (1) Esophageal dysmotility: Comment: 2018 Code(s): K22.4 - Dyskinesia of esophagus (2) Dysphagia: Code(s): R13.10 - Dysphagia, unspecified Plan Based on workup so far, dysphagia appears to be pharyngoesphageal dysphagia with some degree of incoordination noted on ST eval as well and recommendation was made to do multiple swallows with liquid wash to avoid the globus sensation pt complains of. Likely also has presbyesophagus or dysmotiltiy as previously documented in barium swallow done at [facility] in 2018. Empiric dilation during EGD did not help her much, however was only able to go to 16 mm. Offered patient repeat endoscopy with goal dilation to 19-20 mm, however patient prefers to defer for now. She will continue to cut up her food very small and chew thoroughly. We also discussed the possibility of alternative feeding methods, especially as most of her dysphagia is driven by dysmotility, which she declines. She was advised to increase her caloric intake by taking calorie dense food. Protein shakes also be prescribed. Follow-up in 3 months to review repeat EGD with dilation if symptoms worsen over time. Medications: New food supplemt, lactose-reduced (Boost High Protein) 1 ea PO BID 30 days 14,220 mL 2RF Coding Level of Care Code Est Pt Level 4 (07512) Diagnoses Esophageal dysmotility K22.4 Dysphagia R13.10
[2023-05-19 14:12] VITALS: BP 119/69; PULSE 86; BMI 32.8
== END 2023-05-19 14:35 | disposition home or self-care (01) ==
PROVIDERS: PCP Internal Medicine; Visit Provider Internal Medicine
DX: K22.4 Dyskinesia of esophagus (principal); R13.10 Dysphagia, unspecified
CPT/HCPCS: 99214

== ENCOUNTER → 2023-05-19 14:07 | Outpatient (BNVA) | payer MEDICARE, SELFPAY | PROVIDERS: PCP Internal Medicine; Visit Provider Internal Medicine | DX: K22.4 Dyskinesia of esophagus (principal); R13.10 Dysphagia, unspecified | CPT/HCPCS: 99212 ==

== ENCOUNTER 2023-06-04 08:46 | Outpatient (AMB) | payer MEDICARE, SELFPAY ==
--- NOTE | 2023-06-04 09:03 | MHC.OFFVIS ---
Intake Intake Visit Reasons: cysto(Bladder CA) Intake Note: Patient is Present for Cystoscopy Urology Med:none Antibiotic Allergy: None Blood Thinner: Aspirin Confirmed [facility] Cystoscope lot:[id number] exp: 08/23/2024 Allergies No Known Allergies [No Known Allergies*] Allergy (Verified 06/04/23 09:04) HPI HPI Comments History of Present Illness Details Gricelda is a pleasant female. She is a patient of Dr. Naik. She seen for the following urologic conditions - bladder cancer high-grade superficial Cystoscopy today Right upper sidewall lesion Less than 2 cm Plan TURBT with mitomycin-C and cytarabine Bladder cancer initial diagnosis February 2019 - last TURBT September 2021 high-grade Bladder cancer diagnosed TURBT December 2019 - high-grade noninvasive Further follow-up was postponed secondary to COVID Bladder procedures - December 2019 TURBT - June 2020 TURBT high-grade noninvasive, January 2021 TURBT high-grade noninvasive, 10/01 TURBT high-grade noninvasive Cystoscopy - 08/02 NAD, 03/04 NAD Adjuvant therapy - June 2020 - induction gemcitabine, February 2021 repeat induction gemcitabine - Boost 01/01 gemcitabine, 05/04 gemcitabine, 10/02 gemcitabine Cytology - 01/01 NAD, 05/04 NAD PFSH Medical History Chronic renal insufficiency HTN (hypertension) Cardiac pacemaker in situ AV block Leg edema Screening for diabetes mellitus On beta jake at home Arthritis Vertigo MARIELA (obstructive sleep apnea) Sick sinus syndrome Peripheral vascular disease Menieres disease Urinary bladder cancer Obesity Gout GERD (gastroesophageal reflux disease) Hypercholesterolemia Surgical History History of lumpectomy of left breast (03/10/23) History of esophagogastroduodenoscopy (EGD) S/P cardiac pacemaker procedure Hx of colonoscopy History of cystoscopy S/P MARION-BSO (total abdominal hysterectomy and bilateral salpingo-oophorectomy) History of cataract surgery History of knee replacement History of tonsillectomy History of appendectomy History of cholecystectomy Family History Father Stroke Mother Heart disease Social History Household Members: None Housing: Apartment Are you a primary pet care attendant to a significant other at home: No Do you presently have visiting nurse or other home services: No Alcohol intake: current Alcohol intake frequency: does not drink Patient Tobacco Use Status: Former Tobacco user Quit Date: 50 yrs ago Tobacco use type: Cigarette e-Cigarette/Vaping Use: Never Used Second Hand Smoke Exposure: No service: No Current occupational status: retired Cognitive needs: No Hearing needs: Yes Vision needs: Yes Review of Systems Const Denies chills and Denies fever(s) Card Reports no additional complaints and Denies syncope Resp Denies cough GI Denies abdominal pain and Denies heartburn Reports as per HPI and Denies change in libido Neuro Denies syncope Psych Denies change in libido Endo Denies change in libido Physical Exam Const General: cooperative, healthy appearing, comfortable and no acute distress Orientation/consciousness: patient oriented x3 HEENT Face and sinus: Yes normal facial exam Mouth: moist mucous membranes Neck Neck: Yes normal visual inspection, Yes full ROM and Yes trachea midline Chest Chest palpation & inspection: normal inspection of the chest Resp Effort & Inspection: normal respiratory effort, able to speak in complete sentences and no respiratory distress GI Inspection: Yes normal to inspection Back/Spine/Pelvis Cervical Spine: normal cervical lordosis Thoracic/Lumbar Spine: thoracic and lumbar spine normal to inspection Skin General skin exam: no rashes or lesions noted Neuro General: patient oriented x3, gait normal, tone normal and moves all extremities Extrem General: Yes normal to inspection and Yes capillary refill normal Office Procedures Cystoscopy Consent Discussed risk and benefit or proposed procedure with the patient. Information consent for procedure given to the patient. Discussed technical aspects, risks, benefits and alternatives in full. Addressed all of the patient's questions and concerns regarding the procedure. The patient demonstrated knowledge and understanding. They wish to proceed with this procedure. Preparation The patient was prepped in the usual manner. A sample supervisor was present and in the room. Genitalia was prepped with betadine solution in a sterile manner. Lidocaine Jelly 2% was placed into the urethra and 16Fr flexible Olympus cystoscope was inserted into the meatus after adequate lubrication. Procedure Meatus normal position Urethra normal Bladder examination with retroflexion of cystoscope Bladder Orifices normal shape and position Trigone normal Bladder Capacity medium Trabeculations grade 2 Cellule Formation ES Diverticulum Formation - Mucosal Erythema - Bladder Tumor scarring throughout bladder, right sidewall upper 2 cm lesion [id number] DISPOSABLE SCOPE URO-G FLEXIBLE SCOPE Procedure code (CPT) selection complete Office Meds lidocaine HCl 2 % mucosal jelly in applicator Performing Provider: Francisco Dowell MD Performing Location: [facility] Administered by: Korey Pedro LPN on 06/04/23 09:14 Dose Route Admin Location Dispensed Lot Number Expiration Date [facility] [place] 10 mL intra-urethral 10 mL nitrofurantoin monohydrate/macrocrystals 100 mg capsule Performing Provider: Francisco Dowell MD Performing Location: [facility] Administered by: Korey Pedro LPN on 06/04/23 09:14 Dose Route Admin Location Dispensed Lot Number Expiration Date [place] 100 mg PO 1 cap naproxen 500 mg tablet Performing Provider: Francisco Dowell MD Performing Location: [facility] Administered by: Korey Pedro LPN on 06/04/23 09:14 Dose Route Admin Location Dispensed Lot Number Expiration Date [place] 500 mg PO 1 tab Results AMB Urinalysis, Automated UA Leukoctes 70 Stephanie/uL Last Edit by APARNA Mai on 06/04/23 09:13 UA Nitrite Negative Last Edit by APARNA Mai on 06/04/23 09:13 UA Urobilinogen 1 mg/dL Last Edit by APARNA aMi on 06/04/23 09:13 UA Protein 30 mg/dL Last Edit by APARNA Mai on 06/04/23 09:13 UA pH 6.0 Last Edit by APARNA Mai on 06/04/23 09:13 UA Blood 25 Dc/uL Last Edit by APARNA Mai on 06/04/23 09:13 UA Specific [place] 1.020 Last Edit by APARNA Mai on 06/04/23 09:13 UA Ketone Negative Last Edit by APARNA Mai on 06/04/23 09:13 UA Bilirubin 1 mg/dL Last Edit by APARNA Mai on 06/04/23 09:13 UA Glucose 0 mg/dL Last Edit by APARNA Mai on 06/04/23 09:13 Results Reviewed Results Reviewed: Laboratory Last Values Urine pH (Auto) 6.0 06/04/23 09:04 Specific [place] (Auto) 1.020 06/04/23 09:04 Urine Protein (Auto) 30 mg/dL 06/04/23 09:04 Glucose (UA)(Auto) 0 mg/dL 06/04/23 09:04 Urine Ketones (Auto) Negative 06/04/23 09:04 Urine Blood (Auto) 25 Dc/uL 06/04/23 09:04 Urine Nitrite (Auto) Negative 06/04/23 09:04 Urine Bilirubin (Auto) 1 mg/dL 06/04/23 09:04 Urine Urobilinogen (Auto) 1 mg/dL 06/04/23 09:04 Leukocyte Esterase (Auto) 70 Stephanie/uL 06/04/23 09:04 Assessment & Plan Assessment & Plan (1) Urinary bladder cancer: Comment: TURBT superficial high-grade Dr. Meza TURBT Dr. 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, 06/30 HG Superficial September 2021 TURBT and gemcitabine installation Code(s): C67.9 - Malignant neoplasm of bladder, unspecified Qualifiers: Bladder location: unspecified site Qualified Code(s): C67.9 - Malignant neoplasm of bladder, unspecified Plan Risks, benefits and alternatives to therapy were discussed. These include but are not limited to infection, bleeding, damage to local organs and tissues, need for further interventions. Anesthetic risks regarding cardiac arrhythmia, blood clots, and potential mortality were discussed. The patient understands the typical recovery time and the outpatient nature of the procedure. After consideration of these risks the patient gives full informed consent and they wish to move ahead with the procedure. TURBT with immunotherapy installation Orders: Orders AMB Cystoscopy Today C67.9 - Malignant neoplasm of bladder, unspecified AMB Urinalysis Automated Today Z13.9 - Encounter for screening, unspecified Patient Instructions: Imaging studies, laboratory and physical exam results were discussed and reviewed in detail. No major barriers to patient understanding were identified. An opportunity to ask questions regarding the treatment plan was provided. All questions were answered. The patient expressed understanding and agreement with the above treatment plan. The patient is aware they should contact our office by phone for worsening of their current condition or the appearance of new urologic symptoms. Compliance is encouraged with any medications and followup testing that is ordered. It is a privilege to participate in the urologic care of your patient. If you have any questions or concerns regarding treatment for the above conditions, or other urologic issues, please do not hesitate to contact me. The office telephone contact is [phone]. This note is constructed using voice recognition software. While every effort has been made to ensure accuracy director of product development errors may have been included. Yours sincerely, Dr Francisco Dowell MD, [facility] - Urology Providers of Expert, Compassionate Care for the Genitourinary System Coding Level of Care Code Est Pt Level 4 (47972) Diagnoses Malignant neoplasm of urinary bladder, unspecified site C67.9 Bladder location: unspecified site CPT Codes Cystoscopy - CPT: 40572-[id number] ([id number])
== END 2023-06-04 09:39 | disposition home or self-care (01) ==
PROVIDERS: PCP Internal Medicine; Visit Provider Urology
DX: C67.2 Malignant neoplasm of lateral wall of bladder (principal); Z13.9 Encounter for screening, unspecified
CPT/HCPCS: 52000; 99214

== ENCOUNTER → 2023-06-04 08:46 | Outpatient (BNVA) | payer MEDICARE, SELFPAY | PROVIDERS: PCP Internal Medicine; Visit Provider Urology | DX: C67.9 Malignant neoplasm of bladder, unspecified (principal) | CPT/HCPCS: 52000; 81003; 99212 ==

== ENCOUNTER 2023-07-12 12:01 | Day surgery (SDC) | payer MEDICARE, SELFPAY ==
[2023-07-08 10:49] VITALS: BMI 32.7
--- NOTE | 2023-07-09 10:07 | HO.ANESPROP2 ---
Documented by User: Sade Albarado NP 07/09/23 10:08 HPI - Anesthesia Eval Consult details Narrative: 88yo F for TUR Bladder Tumor mytomyicin,and Cytarabine s/p EGD 04/2023 with MAC s/p L breast 02/2023 with GA-LMA [address] [facility] cardiology. Cleared prior to breast surgery. Last office visit 04/2023. Stable and ok for 6 month f/u. Pacer in situ. Interrogation below. PMFSH Active Problems Active Problems: All Active Problems (Updated 07/08/23 @ 10:51 by Sakina Gann RN) Invasive ductal carcinoma of left breast (Acute) COVID-19 virus infection (Acute) Physical deconditioning (Acute) Multiple falls (Acute) Breast cancer, left (Acute) Abnormal mammogram of left breast (Acute) Abnormal ultrasound of breast (Acute) Screening for breast cancer (Acute) Unintentional weight loss (Acute) Dysphagia (Acute) Esophageal dysmotility (Acute) Renal insufficiency (Acute) Complicated urinary tract infection (Acute) Eczema (Acute) Constipation (Acute) Lymphedema of both lower extremities (Acute) Numbness of left hand (Acute) Other and unspecified hyperlipidemia (Acute) Essential hypertension (Acute) Normally functioning cardiac pacemaker present (Acute) Adult general medical exam (Acute) Post-menopausal (Acute) Tinea corporis (Acute) Left wrist pain (Acute) Rosacea (Acute) Impaired fasting blood sugar (Acute) Vitamin B 12 deficiency (Acute) Cardiac pacemaker in situ (Acute) AV block (Acute) Peripheral vascular disease (Acute) Urinary bladder cancer (Acute) Obesity (Acute) Gout (Acute) GERD (gastroesophageal reflux disease) (Acute) Hypercholesterolemia (Acute) Past Medical History Medical History Breast cancer Chronic renal insufficiency HTN (hypertension) Cardiac pacemaker in situ AV block Leg edema Screening for diabetes mellitus On beta jake at home Arthritis Vertigo MARIELA (obstructive sleep apnea) Sick sinus syndrome Peripheral vascular disease Menieres disease Urinary bladder cancer Obesity Gout GERD (gastroesophageal reflux disease) Hypercholesterolemia Family History Family History Father Stroke Mother Heart disease Family history of problems with anesthesia: No Surgical History Surgical History History of lumpectomy of left breast (03/10/23) History of esophagogastroduodenoscopy (EGD) S/P cardiac pacemaker procedure Hx of colonoscopy History of cystoscopy S/P MARION-BSO (total abdominal hysterectomy and bilateral salpingo-oophorectomy) History of cataract surgery History of knee replacement History of tonsillectomy History of appendectomy History of cholecystectomy History of Problems with Anesthesia: No Social History Social History Household Members: None Housing: Apartment Are you a primary landcare facilitator to a significant other at home: No Do you presently have visiting nurse or other home services: No Alcohol intake: current Alcohol intake frequency: does not drink Patient Tobacco Use Status: Former Tobacco user Quit Date: 50 yrs ago Tobacco use type: Cigarette e-Cigarette/Vaping Use: Never Used Second Hand Smoke Exposure: No Are you DNR?: No Advance Directives: No Advance Directives Information Provided: Yes Nutrition Risks: No Nutritional Risk service: No Current occupational status: retired Cognitive needs: No Hearing needs: Yes Vision needs: Yes Meds Allergies Allergy/AdvReac Type Severity Reaction Status Date / Time No Known Allergies Allergy Verified 07/12/23 12:16 [No Known Allergies*] Home Medications Medication Instructions Recorded Confirmed Last Taken Type aspirin 81 mg tablet,delayed 81 mg PO DAILY 03/11/20 07/08/23 07/02/23 History release (Adult Low Dose Aspirin) cholecalciferol (vitamin D3) 25 25 mcg PO DAILY 03/11/20 07/08/23 03/24/23 History mcg (1,000 unit) capsule coenzyme Q10 100 mg capsule (Co 100 mg PO DAILY 03/11/20 07/08/23 03/24/23 History Q-10) polyethylene glycol 3350 17 gram 17 g PO DAILY PRN Constipation 02/24/23 07/08/23 Unknown History oral powder packet (Miralax) propylene glycol 0.6 % eye drops 1 drp ophthalmic (eye) DAILY PRN 02/24/23 07/08/23 Unknown History (Systane Balance) Dry Eyes nystatin 100,000 unit/gram topical 1 appl topical QID PRN Rash 03/25/23 07/08/23 Unknown History powder Exam Height,Weight and Vital Signs: Height 5 ft 1 in Weight 78.471 kg Pertinent Lab Results Pertinent Lab Results: Laboratory Tests 04/13/23 14:29 WBC 8.2 Hgb 12.7 Hct 38.6 Plt Count 438 H D Sodium 141 Potassium 3.7 Chloride 100 Carbon Dioxide 31 H BUN 21 H Creatinine 1.21 Narrative Narrative: Cardiac Device Check 04/2023 Details: Dual-chamber Medtronic pacemaker in place. Programmed in MVP mode with rate response at 50 beats per minute. Ventricular pacing 100% of the time. Atrial pacing 37% of time. No significant episodes of atrial fibrillation noted. Atrial pacing thresholds excellent and reprogrammed to enhance battery life. Ventricular pacing thresholds are stable. Atrial ventricular pacing lead impedance is stable. Ventricular sensing could not be checked. Battery life is at about 1 and half years EKG 03/2023 Vent. Rate : 063 BPM Atrial Rate : 063 BPM P-R Int : 400 ms QRS Dur : 168 ms QT Int : 472 ms P-R-T Axes : 000 214 030 degrees QTc Int : 483 ms Atrial-sensed ventricular-paced rhythm with prolonged AV conduction Abnormal ECG When compared with ECG of 11-DEC-2015 15:27, No significant changes seen NM cardiolite stress test 02/2023 Impression: 1. Myocardial perfusion imaging study shows probably normal myocardial perfusion. 2. Gated LVEF is 74% rest at 71% during stress and 74% during rest. 3. Transient ischemic dilatation not present. EKG component of the test reported separately. Assessment and Plan Assessment Anesthesia Assessment: Chart Reviewed Final Anesthetic Review Family History of Problems with Anesthesia: No History of Problems with Anesthesia: No Documented by User: Joshua Allison MD 07/12/23 12:50 [facility] Past Medical History Medical History Breast cancer Chronic renal insufficiency HTN (hypertension) Cardiac pacemaker in situ AV block Leg edema Screening for diabetes mellitus On beta jake at home Arthritis Vertigo MARIELA (obstructive sleep apnea) Sick sinus syndrome Peripheral vascular disease Menieres disease Urinary bladder cancer Obesity Gout GERD (gastroesophageal reflux disease) Hypercholesterolemia Family History Family History Father Stroke Mother Heart disease Surgical History Surgical History History of lumpectomy of left breast (03/10/23) History of esophagogastroduodenoscopy (EGD) S/P cardiac pacemaker procedure Hx of colonoscopy History of cystoscopy S/P MARION-BSO (total abdominal hysterectomy and bilateral salpingo-oophorectomy) History of cataract surgery History of knee replacement History of tonsillectomy History of appendectomy History of cholecystectomy Social History Social History Household Members: None Housing: Apartment Are you a primary landcare facilitator to a significant other at home: No Do you presently have visiting nurse or other home services: No Alcohol intake: current Alcohol intake frequency: does not drink Patient Tobacco Use Status: Former Tobacco user Quit Date: 50 yrs ago Tobacco use type: Cigarette e-Cigarette/Vaping Use: Never Used Second Hand Smoke Exposure: No Are you DNR?: No Advance Directives: No Advance Directives Information Provided: Yes Nutrition Risks: No Nutritional Risk service: No Current occupational status: retired Cognitive needs: No Hearing needs: Yes Vision needs: Yes Meds Allergies Allergy/AdvReac Type Severity Reaction Status Date / Time No Known Allergies Allergy Verified 07/12/23 12:16 [No Known Allergies*] Home Medications Medication Instructions Recorded Confirmed Last Taken Type aspirin 81 mg tablet,delayed 81 mg PO DAILY 03/11/20 07/08/23 07/02/23 History release (Adult Low Dose Aspirin) cholecalciferol (vitamin D3) 25 25 mcg PO DAILY 03/11/20 07/08/23 03/24/23 History mcg (1,000 unit) capsule coenzyme Q10 100 mg capsule (Co 100 mg PO DAILY 03/11/20 07/08/23 03/24/23 History Q-10) polyethylene glycol 3350 17 gram 17 g PO DAILY PRN Constipation 02/24/23 07/08/23 Unknown History oral powder packet (Miralax) propylene glycol 0.6 % eye drops 1 drp ophthalmic (eye) DAILY PRN 02/24/23 07/08/23 Unknown History (Systane Balance) Dry Eyes nystatin 100,000 unit/gram topical 1 appl topical QID PRN Rash 03/25/23 07/08/23 Unknown History powder Exam Airway Mallampati Class: II TM Dist: >3cm Neck ROM: Full Denture: Upper and Lower Heart: ok Lungs: ok Assessment and Plan Assessment Anesthesia Assessment: Anesthesia Plan Discussed Final Anesthetic Review NPO: Yes ASA Class: III Final Preanesthetic Review: No Changes in Pt Med Stat, Meds/Allgs Chart Reviewed, Consent Obtained/Reviewed and Anes Risks/Benef Reviewed Patient Risk: High Procedure Risk: Low Anesthetic Plan Anesthetic Plan: GA and Agree w/ Assess. and Plan Disposition: Standard PACU
[2023-07-12] VITALS (12 sets, daily range): BP systolic 95–140; BP diastolic 44–69; PULSE 49–72; RESP 16–18; TEMP 36.2–36.6; O2SAT 96–99; BMI 31.9
--- NOTE | 2023-07-12 10:54 | MHC.SHP ---
Pre-Procedural Eval Section A - 24 Hr Update-Section A only Date of Service: 07/12/23 The patient is an INPATIENT: No Changes since office visit: No Cold of Flu in the past 2 weeks, No New Medical Problems, No Changes in Medication and No Patient answered all questions The patient has been examined within 24 hours of the surgical procedure. The History & Physical has been completed within 30 days and I have reviewed it.: Yes Section B - Complete if H&P > 30 days Chief Complaint: Malignant neoplasm of bladder, unspecified Allergies: Allergies Allergy/AdvReac Type Severity Reaction Status Date / Time No Known Allergies Allergy Verified 06/04/23 09:04 [No Known Allergies*] Review of Systems Sugical H&P ROS: Negative: Constitution, Cardiovascular, Respiratory, Neurological, Psychiatric, Hem-Onc, Allergic/Immunologic, Gastrointestinal, Genitourinary, Musculoskeletal, Integumentary, Endocrine and Eyes/Ears/Nose/Throat Exam Surgical H&P Exam: Normal: HEENT, Normal: Heart, Normal: Lungs, Normal: Extremities, Normal: Abdomen, Normal: Skin and Normal: Neurological Plan Diagnosis/Plan: Unchanged (TURBT with [facility] and cytarabine) I have reviewed the history and physical and performed a pertinent physical examination on my patient. No changes have occurred unless specified. Time Spent With Patient Time: Total time managing care of this patient today ____ minutes.
[2023-07-12] MEDS: Lactated Ringers 1,000 ML 50 ML IVCONT (12:25)
--- NOTE | 2023-07-16 16:38 | P.OP_ITS ---
Operative Note Operative Note Date of Service: 07/12/23 Narrative: PreOperative Diagnosis: bladder cancer Post Operative Diagnosis: bladder cancer - multiple lesions. Four lesions seen. Each lesion 2 cm flat Procedure: TURBT and mitomycin-C with cytarabine Surgeon: Dr Francisco Dowell Anesthesia: general Indications for procedure: Recurrent superficial bladder cancer Procedure: After informed consent was verified the patient was brought to the operating room and placed in a supine position. Anesthesia was administered per protocol. The patient was placed in a modified dorsal lithotomy position and prepped and draped in a sterile fashion. Safety pause time-out was performed. Antibiotics were confirmed. A 26 Micronesian continuous flow resectoscope was inserted per urethra. The visual obturator was used in order to minimize potential for urethral damage. 4 lesions found within bladder. Posterior wall and dome of bladder. These were resected and cauterized as necessary. At the completion of the procedure the bladder was irrigated. The cystoscope was removed. A [address] Rivera catheter was inserted into the bladder. 10 cc was placed in the balloon. Mitomycin-C with cytarabine was instilled into the bladder. The flow from the catheter was left clamped. The inflow to the catheter was attached to a 3 L normal saline bag. The patient tolerated the procedure well. They were extubated in the operating room and transferred in stable condition to the recovery area. Mitomycin-C will remain in the bladder for 1 hour. At the completion of 1 hour the clamp will be removed. The mitomycin-C will be allowed to egress to the urine collection bag. The 3 L bag of normal saline will be run at maximum rate through the bladder in order to dilute any residual mitomycin-C. The Rivera catheter will then be removed. Pathology: Fragments of bladder tumor Drains: Rivera catheter
== END 2023-07-12 16:18 | disposition home or self-care (01) ==
PROVIDERS: PCP Internal Medicine; Visit Provider Urology
PROC: 0TBB8ZZ Excision of Bladder, Via Natural or Artificial Opening Endoscopic (ICD-10-PCS; CPT 52240; principal; 2023-07-12 15:50)
DX: C67.9 Malignant neoplasm of bladder, unspecified (principal); C50.912 Malignant neoplasm of unspecified site of left female breast; Z79.811 Long term (current) use of aromatase inhibitors; E78.00 Pure hypercholesterolemia, unspecified; I12.9 Hypertensive chronic kidney disease with stage 1 through stage 4 chronic kidney disease, or unspecified chronic kidney disease; N18.30 Chronic kidney disease, stage 3 unspecified; R73.01 Impaired fasting glucose; M10.9 Gout, unspecified; I73.9 Peripheral vascular disease, unspecified; I44.30 Unspecified atrioventricular block; Z95.0 Presence of cardiac pacemaker; G47.33 Obstructive sleep apnea (adult) (pediatric); Z79.82 Long term (current) use of aspirin; Z79.899 Other long term (current) drug therapy; Z98.890 Other specified postprocedural states; Z87.891 Personal history of nicotine dependence
CPT/HCPCS: 52240; 51720; J1956; J2704; J3010; J9100; J9280

== ENCOUNTER → 2023-07-12 12:01 | Outpatient (BNV) | payer MEDICARE, SELFPAY | PROVIDERS: PCP Internal Medicine; Visit Provider Urology | DX: C67.8 Malignant neoplasm of overlapping sites of bladder (principal) | CPT/HCPCS: 52235 ==

== ENCOUNTER 2023-07-23 10:38 | Outpatient (AMB) | payer MEDICARE, SELFPAY ==
[2023-07-23 10:39] VITALS: BP 108/62; PULSE 77; O2SAT 94; BMI 31.6
--- NOTE | 2023-07-23 10:39 | MHC.PC.OV ---
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 Required: No Allergies No Known Allergies [No Known Allergies*] Allergy (Verified 07/23/23 10:40) Medication List - Last Reconciled 07/23/23 by Román Naik MD amlodipine 5 mg PO DAILY aspirin (Adult Low Dose Aspirin) 81 mg PO DAILY cholecalciferol (vitamin D3) 25 mcg PO DAILY coenzyme Q10 (Co Q-10) 100 mg PO DAILY cyanocobalamin (vitamin B-12) 1,000 mcg PO DAILY gabapentin 300 mg PO BEDTIME hydrochlorothiazide 25 mg PO DAILY letrozole 2.5 mg PO DAILY meclizine 25 mg PO DAILY metoprolol succinate ER 50 mg PO DAILY 90 days nystatin 1 appl topical QID PRN omeprazole 20 mg PO DAILY polyethylene glycol 3350 (Miralax) 17 grams PO DAILY PRN propylene glycol 0.6% (Systane Balance) 1 drp ophthalmic (eye) DAILY PRN simvastatin 20 mg PO BEDTIME Tobacco use date assessed: 07/23/23 Fall risk assessment: No Falls in past year Last assessed Fall Risk: 07/23/23 Dental Screening Dental Screen Date: 07/23/23 Did you have a dental visit in the last 12 months?: No Did you have a dental problem in the last 6 months where you did not have access to dental care?: No Was dental information given to patient?: Patient has dentist HPI L breast cancer HPI Details 88-year-old female with a history of left breast cancer February 2023 , chronic inactive gastritis GERD hypercholesterolemia hypertension last seen in April 2023 and concerns about the blood pressure. Review of the notes has followed up with the Hematology Oncology. Patient also has a urinary bladder cancer patient underwent left breast lumpectomy with sentinel node biopsy revealing the Intensive ductal carcinoma negative margins , declined adjuvant radiation therapy patient declined any other treatment next mammography is February 2024. Patient also underwent cystoscopy July 2023 under urology had a TURBT and mitomycin C and cytarabine. As for GI patient had an EGD with balloon dilatation in April 2023 the lower and upper esophagus done [facility] Medical History (Updated 07/23/23 @ 11:09 by Román Naik MD) Complicated urinary tract infection Dysphagia Screening for breast cancer Abnormal ultrasound of breast Abnormal mammogram of left breast Multiple falls Physical deconditioning Breast cancer, left Breast cancer Chronic renal insufficiency HTN (hypertension) Cardiac pacemaker in situ AV block Leg edema Screening for diabetes mellitus On beta jake at home Arthritis Vertigo MARIELA (obstructive sleep apnea) Sick sinus syndrome Peripheral vascular disease Menieres disease Urinary bladder cancer Obesity Gout GERD (gastroesophageal reflux disease) Hypercholesterolemia Surgical History History of lumpectomy of left breast (03/10/23) History of esophagogastroduodenoscopy (EGD) S/P cardiac pacemaker procedure Hx of colonoscopy History of cystoscopy S/P MARION-BSO (total abdominal hysterectomy and bilateral salpingo-oophorectomy) History of cataract surgery History of knee replacement History of tonsillectomy History of appendectomy History of cholecystectomy Family History Father Stroke Mother Heart disease Social History Household Members: None Housing: Apartment Are you a primary child care attendant school to a significant other at home: No Do you presently have visiting nurse or other home services: No Alcohol intake: current Alcohol intake frequency: does not drink Patient Tobacco Use Status: Former Tobacco user Quit Date: 50 yrs ago Tobacco use type: Cigarette e-Cigarette/Vaping Use: Never Used Second Hand Smoke Exposure: No service: No Current occupational status: retired Cognitive needs: No Hearing needs: Yes Vision needs: Yes Questionnaire Thrive Questionnaire Date Thrive assessed: 07/23/23 I am a: Patient What is your living situation today?: I have a steady place to live Within the past 12 months, did the food you bought not last and you didn't have the money to get more?: Never true Within the past 12 months, did you worry whether your food would run out before you got money to buy more?: Never true Do you have trouble paying for medicines?: No Do you have trouble getting transportation to medical appointments?: No Do you have trouble paying your heating and electricity bill?: No Do you have trouble taking care of your child, family member or friend?: No Do you have trouble with day-to-day activities such as bathing, preparing meals, shopping, managing finances, etc.?: No Are you currently unemployed and looking for a job?: No Are you interested in more education?: No Please select the resources that you would like help with: None Currently or been in a relationship where the following occur: no concerns reported THRIVE Score: 0 AUDIT C Alcohol Use Questionnaire (AUDIT-C) 1. How often do you have a drink containing alcohol?: Never 3. How often do you have six or more drinks on one occasion?: Never Total Score: 0 DESI-7 AMB Questionnaire DESI-7 Date DESI - 7 assessed: 05/12/23 Source: Developed by Drs. Wilver Hightower, Tanya Bardales, Thomas Perry and colleagues, with an educational mike from [employer]. Physical exam (Primary Care) Vital Signs: Last Vital Signs Pulse 77 07/23/23 10:39 BP 108/62 07/23/23 10:39 Pulse Ox 94 07/23/23 10:39 Oxygen Delivery Method Room Air 07/23/23 10:39 BMI result Body Mass Index 31.6 Tobacco/Smoking Status: Tobacco use Status Tobacco use date assessed 07/23/23 07/23/23 10:42 Patient Tobacco Use Status Former Tobacco user 07/23/23 10:42 Tobacco use type Cigarette 07/23/23 10:42 e-Cigarette/Vaping Use Never Used 07/23/23 10:42 Thrive Assessment: Date of Thrive Assessment Date Thrive assessed 07/23/23 07/23/23 10:42 Currently or been in a relationship where the following occur: no concerns reported Const General: alert; No acute distress Eyes Conjunctivae: conjunctivae normal Resp Auscultation: clear to auscultation bilaterally Cardio Rate: regular rate Rhythm: regular rhythm GI Inspection: Yes normal to inspection Extrem General: Yes normal to inspection and No edema Assessment and Plan Assessment & Plan (1) Invasive ductal carcinoma of left breast: Comment: Left breast lumpectomy February 2023 Code(s): C50.912 - Malignant neoplasm of unspecified site of left female breast Plan: Continue to follow-up date psychology, patient on the notes declined chemotherapy and radiation therapy (2) Esophageal dysmotility: Comment: 2017 Code(s): K22.4 - Dyskinesia of esophagus Plan: Patient follows up with Gastroenterology and slow chewing and eating (3) Essential hypertension: Code(s): I10 - Essential (primary) hypertension Plan: Continue with blood pressure medication. Decrease salt intake and exercise presently on amlodipine 5 mg once a day hydrochlorothiazide 25 mg once a day metoprolol 50 mg once a day blood pressure is better (4) Urinary bladder cancer: Comment: TURBT superficial high-grade Dr. Meza TURBT Dr. 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, 06/30 HG Superficial September 2021 TURBT and gemcitabine installation Code(s): C67.9 - Malignant neoplasm of bladder, unspecified Qualifiers: Bladder location: unspecified site Qualified Code(s): C67.9 - Malignant neoplasm of bladder, unspecified Plan: Patient continue to follow-up with urology status post TURBT (5) Hypercholesterolemia: Code(s): E78.00 - Pure hypercholesterolemia, unspecified Plan: Avoid fried foods, chicken skin, eggs, butter margarine, pastries and meat. Be it pork or beef they have a lot of cholesterol on simvastatin 20 mg once a day (6) Weakness of both shoulders: Code(s): R29.898 - Other symptoms and signs involving the musculoskeletal system Orders: Orders Complete Blood Count Auto Diff Today E78.00 - Pure hypercholesterolemia, unspecified Comprehensive Met. Panel Today E78.00 - Pure hypercholesterolemia, unspecified Thyroid Stimulating Hormone Today E78.00 - Pure hypercholesterolemia, unspecified Vitamin B12 and Folate Today E78.00 - Pure hypercholesterolemia, unspecified Lipid Panel Today E78.00 - Pure hypercholesterolemia, unspecified Free T4 (Free Thyroxine) Today E78.00 - Pure hypercholesterolemia, unspecified Hemoglobin A1c Today R73.01 - Impaired fasting glucose PT Evaluation and Treatment Today R29.898 - Other symptoms and signs involving the musculoskeletal system Medications: Refilled amlodipine 5 mg PO DAILY 90 tabs 0RF Coding Level of Care Code Est Pt Level 4 (32195) Diagnoses Invasive ductal carcinoma of left breast C50.912 Esophageal dysmotility K22.4 Essential hypertension I10 Malignant neoplasm of urinary bladder, unspecified site C67.9 Bladder location: unspecified site Hypercholesterolemia E78.00 Weakness of both shoulders R29.898
[2023-07-23 11:01] VITALS: BP 120/68
== END 2023-07-23 11:22 | disposition home or self-care (01) ==
PROVIDERS: PCP Internal Medicine; Visit Provider Internal Medicine
DX: C50.912 Malignant neoplasm of unspecified site of left female breast (principal); K22.4 Dyskinesia of esophagus; I10 Essential (primary) hypertension; C67.9 Malignant neoplasm of bladder, unspecified; E78.00 Pure hypercholesterolemia, unspecified; R29.898 Other symptoms and signs involving the musculoskeletal system
CPT/HCPCS: 99214

== ENCOUNTER 2023-07-28 13:15 | Outpatient (AMB) | payer MEDICARE, SELFPAY ==
--- NOTE | 2023-07-28 13:18 | MHC.OFFVIS ---
Intake Intake Visit Reasons: TURBT follow up(Confirmed) Intake Note: Patient is Present for TURBT follow up Urology Med:none Antibiotic Allergy: None Blood Thinner: Aspirin Confirmed [facility]: [facility] Allergies No Known Allergies [No Known Allergies*] Allergy (Verified 07/28/23 13:36) Medication List - Last Reconciled 07/28/23 by Francisco Dowell MD amlodipine 5 mg PO DAILY aspirin (Adult Low Dose Aspirin) 81 mg PO DAILY cholecalciferol (vitamin D3) 25 mcg PO DAILY coenzyme Q10 (Co Q-10) 100 mg PO DAILY cyanocobalamin (vitamin B-12) 1,000 mcg PO DAILY gabapentin 300 mg PO BEDTIME hydrochlorothiazide 25 mg PO DAILY letrozole 2.5 mg PO DAILY meclizine 25 mg PO DAILY metoprolol succinate ER 50 mg PO DAILY 90 days nystatin 1 appl topical QID PRN nystatin 1 appl topical BID omeprazole 20 mg PO DAILY polyethylene glycol 3350 (Miralax) 17 grams PO DAILY PRN propylene glycol 0.6% (Systane Balance) 1 drp ophthalmic (eye) DAILY PRN simvastatin 20 mg PO BEDTIME HPI HPI Comments History of Present Illness Details Gricelda is a pleasant female. She is a patient of Dr. Naik. She seen for the following urologic conditions - bladder cancer high-grade superficial Completed TURBT low-grade multifocal Would complete 2 more mitomycin-C with cytarabine immunotherapy dosages Office cystoscopy 3 months Bladder cancer initial diagnosis February 2019 - last TURBT September 2021 high-grade Bladder cancer diagnosed TURBT December 2019 - high-grade noninvasive Further follow-up was postponed secondary to COVID Bladder procedures - December 2019 TURBT - June 2020 TURBT high-grade noninvasive - January 2021 TURBT high-grade noninvasive - 10/01 TURBT high-grade noninvasive - 08/03 TURBT low-grade multifocal Cystoscopy - 08/02 NAD, 03/04 NAD Adjuvant therapy - June 2020 - induction gemcitabine, February 2021 repeat induction gemcitabine - Boost 01/01 gemcitabine, 05/04 gemcitabine, 10/02 gemcitabine Cytology - 01/01 NAD, 05/04 NAD PFSH Medical History (Updated 07/28/23 @ 13:51 by Francisco Dowell MD) Complicated urinary tract infection Dysphagia Screening for breast cancer Abnormal ultrasound of breast Abnormal mammogram of left breast Multiple falls Physical deconditioning Breast cancer, left Breast cancer Chronic renal insufficiency HTN (hypertension) Cardiac pacemaker in situ AV block Leg edema Screening for diabetes mellitus On beta jake at home Arthritis Vertigo MARIELA (obstructive sleep apnea) Sick sinus syndrome Peripheral vascular disease Menieres disease Urinary bladder cancer Obesity Gout GERD (gastroesophageal reflux disease) Hypercholesterolemia Surgical History History of lumpectomy of left breast (03/10/23) History of esophagogastroduodenoscopy (EGD) S/P cardiac pacemaker procedure Hx of colonoscopy History of cystoscopy S/P MARION-BSO (total abdominal hysterectomy and bilateral salpingo-oophorectomy) History of cataract surgery History of knee replacement History of tonsillectomy History of appendectomy History of cholecystectomy Family History Father Stroke Mother Heart disease Social History Household Members: None Housing: Apartment Are you a primary child care cook to a significant other at home: No Do you presently have visiting nurse or other home services: No Alcohol intake: current Alcohol intake frequency: does not drink Patient Tobacco Use Status: Former Tobacco user Quit Date: 50 yrs ago Tobacco use type: Cigarette e-Cigarette/Vaping Use: Never Used Second Hand Smoke Exposure: No service: No Current occupational status: retired Cognitive needs: No Hearing needs: Yes Vision needs: Yes Review of Systems Const Denies chills and Denies fever(s) Card Reports no additional complaints and Denies syncope Resp Denies cough GI Denies abdominal pain and Denies heartburn Reports as per HPI and Denies change in libido Neuro Denies syncope Psych Denies change in libido Endo Denies change in libido Physical Exam Const General: cooperative, healthy appearing, comfortable and no acute distress Orientation/consciousness: patient oriented x3 HEENT Face and sinus: Yes normal facial exam Mouth: moist mucous membranes Neck Neck: Yes normal visual inspection, Yes full ROM and Yes trachea midline Chest Chest palpation & inspection: normal inspection of the chest Resp Effort & Inspection: normal respiratory effort, able to speak in complete sentences and no respiratory distress GI Inspection: Yes normal to inspection Back/Spine/Pelvis Cervical Spine: normal cervical lordosis Thoracic/Lumbar Spine: thoracic and lumbar spine normal to inspection Skin General skin exam: no rashes or lesions noted Neuro General: patient oriented x3, gait normal, tone normal and moves all extremities Extrem General: Yes normal to inspection and Yes capillary refill normal Assessment & Plan Assessment & Plan (1) Urinary bladder cancer: Comment: TURBT superficial high-grade Dr. Meza TURBT Dr. 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, 06/30 HG Superficial September 2021 TURBT and gemcitabine installation Code(s): C67.9 - Malignant neoplasm of bladder, unspecified Qualifiers: Bladder location: unspecified site Qualified Code(s): C67.9 - Malignant neoplasm of bladder, unspecified (2) Fungal infection: Code(s): B49 - Unspecified mycosis Plan Plan to immunotherapy 2 sessions mitomycin-C with cytarabine Three-month follow-up cysto office Nystatin powder for superficial fungal infection Orders: Orders AMB Post Void Residual by ultrasound Today N39.8 - Other specified disorders of urinary system Medications: New nystatin Apply 2 times per day thin coat of topical powder to affected area 1 appl topical BID 30 grams 0RF B49 - Unspecified mycosis Patient Instructions: Imaging studies, laboratory and physical exam results were discussed and reviewed in detail. No major barriers to patient understanding were identified. An opportunity to ask questions regarding the treatment plan was provided. All questions were answered. The patient expressed understanding and agreement with the above treatment plan. The patient is aware they should contact our office by phone for worsening of their current condition or the appearance of new urologic symptoms. Compliance is encouraged with any medications and followup testing that is ordered. It is a privilege to participate in the urologic care of your patient. If you have any questions or concerns regarding treatment for the above conditions, or other urologic issues, please do not hesitate to contact me. The office telephone contact is [phone]. This note is constructed using voice recognition software. While every effort has been made to ensure accuracy cooker casing errors may have been included. Yours sincerely, Dr Francisco Dowell MD, [facility] - Urology Providers of Expert, Compassionate Care for the Genitourinary System Coding Level of Care Code Est Pt Level 3 (14358) Diagnoses Malignant neoplasm of urinary bladder, unspecified site C67.9 Bladder location: unspecified site Fungal infection B49
== END 2023-07-28 13:52 | disposition home or self-care (01) ==
PROVIDERS: PCP Internal Medicine; Visit Provider Urology
DX: C67.9 Malignant neoplasm of bladder, unspecified (principal); B49 Unspecified mycosis
CPT/HCPCS: 99213

== ENCOUNTER → 2023-07-28 13:15 | Outpatient (BNVA) | payer MEDICARE, SELFPAY | PROVIDERS: PCP Internal Medicine; Visit Provider Urology | DX: C67.9 Malignant neoplasm of bladder, unspecified (principal); B49 Unspecified mycosis | CPT/HCPCS: 99212 ==

== ENCOUNTER 2023-08-10 11:20 | Outpatient (AMB) | payer MEDICARE, SELFPAY ==
--- NOTE | 2023-08-10 11:25 | MHC.OFFVIS ---
Vital Signs 08/10/23 11:34 Height 5 ft 1 in Weight 165 lb 5.547 oz BMI 31.2 BP 137/63 Blood Pressure Location Lt brachial Position Sitting Pulse 84 Intake Visit Reasons: 3 month breast exam Intake Note: Patient is seen in office for 3 month follow up visit, breast exam. Pt c/o: denies any concerns at the time, was given meds by oncologist but pt declined to take them Spreader Operator Automatic Required: No It Trainer: It Trainer Present Accompanied by: Self / Same As Patient Allergies No Known Allergies [No Known Allergies*] Allergy (Verified 08/10/23 11:33) HPI Comments Details: 88-year-old female patient returning for follow-up breast examination. She was found to have a suspicious density in the left breast at the upper outer quadrant subsequently underwent ultrasound-guided biopsy at the [facility] on 10/12/2022. Pathology revealed an invasive ductal carcinoma with lobular features, ER/TN positive, HER2 Shen negative. She underwent a left breast lumpectomy with localizer, sentinel node biopsy using Mag trace on 03/10/2023. Pathology revealed: Invasive ductal carcinoma, MSBR grade 3, 2.5 cm in size; negative margins (1.5 mm to anterior). - Biopsy site changes. - pT2 N0(sn)(i-) AJCC Stage 8th ed. B. Soft tissue, axillary contents: Fibrovascular and adipose tissue within normal limits; no lymph nodes identified. C. Lymph node, sentinel #1, excision: One lymph node negative for metastatic carcinoma. D. Lymph node, sentinel #2, excision: Fibrovascular and adipose tissue within normal limits; no lymph nodes identified. Ancillary studies: ER positive, TN positive, HER2 negative, high proliferation Oncotype DX recurrence score is 14 with a 4% 9 year distant recurrence risk and absolute benefit of chemotherapy at less than 1%. She denies a prior history of breast problems or breast surgery. She denies any ongoing breast symptoms at this time. Her family history is positive for a sister having breast cancer. She is G0. She was evaluated by Medical Oncology and letrozole offered but declined by the patient. In addition radiation therapy was declined. She continues to be followed by Dr. Smith. [facility] Medical History Complicated urinary tract infection Dysphagia Screening for breast cancer Abnormal ultrasound of breast Abnormal mammogram of left breast Multiple falls Physical deconditioning Breast cancer, left Breast cancer Chronic renal insufficiency HTN (hypertension) Cardiac pacemaker in situ AV block Leg edema Screening for diabetes mellitus On beta jake at home Arthritis Vertigo MARIELA (obstructive sleep apnea) Sick sinus syndrome Peripheral vascular disease Menieres disease Urinary bladder cancer Obesity Gout GERD (gastroesophageal reflux disease) Hypercholesterolemia Surgical History History of lumpectomy of left breast (03/10/23) History of esophagogastroduodenoscopy (EGD) S/P cardiac pacemaker procedure Hx of colonoscopy History of cystoscopy S/P MARION-BSO (total abdominal hysterectomy and bilateral salpingo-oophorectomy) History of cataract surgery History of knee replacement History of tonsillectomy History of appendectomy History of cholecystectomy Family History Father Stroke Mother Heart disease Social History Household Members: None Housing: Apartment Are you a primary restorative care technician to a significant other at home: No Do you presently have visiting nurse or other home services: No Alcohol intake: current Alcohol intake frequency: does not drink Patient Tobacco Use Status: Former Tobacco user Quit Date: 50 yrs ago Tobacco use type: Cigarette e-Cigarette/Vaping Use: Never Used Second Hand Smoke Exposure: No service: No Current occupational status: retired Cognitive needs: No Hearing needs: Yes Vision needs: Yes Review of Systems Const All systems reviewed & are unremarkable except as noted in HPI and below Denies chills, Denies fever(s), Denies headache(s), Denies poor appetite and Denies weakness ENT Denies headache(s) Card Denies chest pain, Denies irregular heart rhythm, Denies palpitations and Denies dyspnea Resp Denies cough, Denies excessive phlegm production and Denies dyspnea GI Denies abdominal pain, Denies bloating, Denies change in bowel habits, Denies constipation, Denies heartburn, Denies diarrhea, Denies nausea and Denies vomiting Details: History of bladder CA Denies urinary frequency and Denies nipple discharge Musc Denies back pain, Denies muscle weakness and Denies numbness Skin/Breast Denies breast swelling, Denies breast skin changes, Denies breast pain, Denies breast mass, Denies changing lesions, Denies nipple discharge and Denies unusual bruising Neuro Denies headache(s), Denies numbness, Denies paresthesias and Denies weakness Psych Denies anxiety and Denies depression Endo Denies palpitations Arsenio/Lymph Denies lymphadenopathy Physical Exam Vital Signs: Last Vital Signs Pulse 84 08/10/23 11:34 BP 137/63 08/10/23 11:34 BMI result Body Mass Index 31.2 Const General: comfortable Nutritional Appearance: well nourished Orientation/consciousness: patient oriented x3 Chest Other: Well-healed incision in the left axilla and left breast. There is residual seroma in the left axilla which has not changed significantly since last examination and in fact may be slightly smaller. No other new palpable masses appreciated in the left breast. Right breast reveals no new skin change, nipple discharge, palpable mass or enlarged lymph nodes. Chest/axillae images: 1. Seroma left axilla. Resp Effort & Inspection: normal respiratory effort Skin General skin exam: no rashes or lesions noted Neuro General: patient oriented x3 Assessment & Plan Assessment & Plan (1) Invasive ductal carcinoma of left breast: Comment: Left breast lumpectomy February 2023 Code(s): C50.912 - Malignant neoplasm of unspecified site of left female breast Category: Medical Plan 88-year-old female presenting with a left breast carcinoma status post lumpectomy LOCalizer and sentinel node biopsy. She is being evaluated by Medical Oncology (Luis) for possible adjuvant antiestrogen therapy but has subsequently declined any further therapy including ready to be. She continues to have a small seroma but I have elected to observe it as this will probably. Her wounds are clean, dry and intact. There is a small seroma residual in the left axilla. This will be observed with no further aspiration. She will follow-up in 6 months for follow-up examination. Coding Level of Care Code Est Pt Level 3 (83415) Diagnoses Invasive ductal carcinoma of left breast C50.912
[2023-08-10 11:34] VITALS: BP 137/63; PULSE 84; BMI 31.2
== END 2023-08-10 11:45 | disposition home or self-care (01) ==
PROVIDERS: PCP Internal Medicine; Visit Provider Surgery
DX: C50.912 Malignant neoplasm of unspecified site of left female breast (principal)
CPT/HCPCS: 99213

== ENCOUNTER → 2023-08-10 11:20 | Outpatient (BNVA) | payer MEDICARE, SELFPAY | PROVIDERS: PCP Internal Medicine; Visit Provider Surgery | DX: C50.912 Malignant neoplasm of unspecified site of left female breast (principal) | CPT/HCPCS: 99212 ==

== ENCOUNTER 2023-08-18 13:44 | Outpatient (AMB) | payer MEDICARE, SELFPAY ==
--- NOTE | 2023-08-18 13:49 | A.OFFVIS_ITS ---
Vital Signs 08/18/23 13:55 Height 5 ft 1 in Weight 165 lb BMI 31.2 BP 132/66 Blood Pressure Location Lt brachial Position Sitting Pulse 81 Intake Visit Reasons: 3 month follow up Intake Note: Gricelda presents in the office as a 3 month follow up. CC: She states that she is feeling okay - just here for a follow up. Fractionation Plant Supervisor Required: No Allergies No Known Allergies [No Known Allergies*] Allergy (Verified 08/18/23 13:58) HPI Comments Details: This is an 87 y.o F with PMH of bladder ca on gemcitabine and TURBT (Dr Dowell), CHB s/p dual chamber pacemaker, HTN, known esophageal dysmotility who is here for dysphagia. 12/07/22: Hx was obtained from the pt who states that around 2018 she started noticing difficulty swallowing food. Greg solid foods seems to get stuck in upper esophagus. Has frequent regurgi with liquids. Had a barium swallow at [facility] which showed severe dysmotility. However she never actually followed up with the gastroenterology. Has a remote hx of upper endoscopy which was likely done before this issue started. Most of the foods that bother her are broccoli, chicken, bread. Has had weight loss of almost 50 lbs in the past one year but unsure if due to bladder ca as does not have the appetite to eat. Last colonoscopy was almost 11 years ago in [place]. No fam hx of CRC. 02/24/23: Patient is here for follow-up after completing modified barium swallow as well as a CT chest. Possible goiter noted on CT chest but otherwise no abnormal findings to explain dysphagia. She was noted to have laryngeal penetration on modified barium swallow and speech therapy recommended dysphagia level 3 diet. Of note patient has recently been diagnosed with left-sided breast cancer and scheduled to under lumpectomy later this month. Otherwise, does not report any changes in her swallowing since the last time. Previously had reported remarkable weight loss when she was initially seen, however compared to November, weight curve has remained stable. 05/06/23: EGD with balloon dilation (Dr. Jack): No EoE on biopsies. Lower and upper esophagus dilated to 16 mm, no tears. GAVE. Hyperplastic polyps. 05/19/23: Seen in office for follow-up today. Also established with Dr. Correia and Dr. Smith for breast cancer. Does not report any significant difference since endoscopy with dilation. However, continues to modulate her diet on her own. Avoids any hard vegetables. Likes broccoli, but makes sure to remove all stems and consumes small floor it is only. Weight down by 3 lb since January. 08/18/23: Seen in follow up. s/p lumpectomy. Oncotype Dx with low score so not on chemo. Declined radiation and hormonal therapy. Currently from GI standpoint, maintaining a status quo. Some foods feel like they are going down slowly but no issues with foods getting stuck. She is used to cutting them into very small pieces before eating. [facility] Medical History Complicated urinary tract infection Dysphagia Screening for breast cancer Abnormal ultrasound of breast Abnormal mammogram of left breast Multiple falls Physical deconditioning Breast cancer, left Breast cancer Chronic renal insufficiency HTN (hypertension) Cardiac pacemaker in situ AV block Leg edema Screening for diabetes mellitus On beta jake at home Arthritis Vertigo MARIELA (obstructive sleep apnea) Sick sinus syndrome Peripheral vascular disease Menieres disease Urinary bladder cancer Obesity Gout GERD (gastroesophageal reflux disease) Hypercholesterolemia Surgical History History of lumpectomy of left breast (03/10/23) History of esophagogastroduodenoscopy (EGD) S/P cardiac pacemaker procedure Hx of colonoscopy History of cystoscopy S/P MARION-BSO (total abdominal hysterectomy and bilateral salpingo-oophorectomy) History of cataract surgery History of knee replacement History of tonsillectomy History of appendectomy History of cholecystectomy Family History Father Stroke Mother Heart disease Social History Household Members: None Housing: Apartment Are you a primary career coordinator to a significant other at home: No Do you presently have visiting nurse or other home services: No Alcohol intake: current Alcohol intake frequency: does not drink Patient Tobacco Use Status: Former Tobacco user Quit Date: 50 yrs ago Tobacco use type: Cigarette e-Cigarette/Vaping Use: Never Used Second Hand Smoke Exposure: No service: No Current occupational status: retired Cognitive needs: No Hearing needs: Yes Vision needs: Yes Review of Systems Const All systems reviewed & are unremarkable except as noted in HPI and below Physical Exam Vital Signs: Last Vital Signs Pulse 81 08/18/23 13:55 BP 132/66 08/18/23 13:55 BMI result Body Mass Index 31.2 NAD Nonicteric abd soft nondistended A/OX3, normal gait Assessment & Plan Assessment & Plan (1) Esophageal dysmotility: Comment: 2018 Code(s): K22.4 - Dyskinesia of esophagus Category: Medical (2) Dysphagia: Code(s): R13.10 - Dysphagia, unspecified Category: Medical Plan Pt would like to maintain the status quo with feeding and would like to hold off a repeat EGD at this time. We did review that dysphagia is also being contributed by abnormal motility and will likely not resolve fully even if dilation repeated. Will call us if swallowing gets worse, otherwise follow up in 6 months Coding Level of Care Code Est Pt Level 3 (91699) Diagnoses Esophageal dysmotility K22.4 Dysphagia R13.10
[2023-08-18 13:55] VITALS: BP 132/66; PULSE 81; BMI 31.2
== END 2023-08-18 14:20 | disposition home or self-care (01) ==
PROVIDERS: PCP Internal Medicine; Visit Provider Internal Medicine
DX: K22.4 Dyskinesia of esophagus (principal); R13.10 Dysphagia, unspecified
CPT/HCPCS: 99213

== ENCOUNTER → 2023-08-18 13:44 | Outpatient (BNVA) | payer MEDICARE, SELFPAY | PROVIDERS: PCP Internal Medicine; Visit Provider Internal Medicine | DX: K22.4 Dyskinesia of esophagus (principal); R13.10 Dysphagia, unspecified | CPT/HCPCS: 99212 ==

== ENCOUNTER 2023-10-21 14:02 | Outpatient (AMB) | payer MEDICARE, SELFPAY ==
[2023-10-21 14:15] VITALS: BP 110/70; PULSE 70; BMI 30.4
--- NOTE | 2023-10-21 14:15 | A.OFFVIS_ITS ---
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 Required: No Parts Back Counter Man: Parts Back Counter Man Present Accompanied by: Friend Allergies No Known Allergies [No Known Allergies*] Allergy (Verified 08/18/23 13:58) Medication List - Last Reconciled 10/21/23 by Facundo Solis MD amlodipine 5 mg PO DAILY aspirin (Adult Low Dose Aspirin) 81 mg PO DAILY cholecalciferol (vitamin D3) 25 mcg PO DAILY coenzyme Q10 (Co Q-10) 100 mg PO DAILY cyanocobalamin (vitamin B-12) 1,000 mcg PO DAILY gabapentin 300 mg PO BEDTIME hydrochlorothiazide 25 mg PO DAILY meclizine 25 mg PO DAILY metoprolol succinate ER 50 mg PO DAILY 90 days nystatin 1 appl topical QID PRN nystatin 1 appl topical BID omeprazole 20 mg PO DAILY polyethylene glycol 3350 (Miralax) 17 grams PO DAILY PRN propylene glycol 0.6% (Systane Balance) 1 drp ophthalmic (eye) DAILY PRN simvastatin 20 mg PO BEDTIME HPI Comments Details: Gricelda comes for follow-up. She recently has declined chemotherapy for breast cancer due to perceived side effects. She denies any cardiac symptoms. No lightheadedness, syncope. Takes all her medications. Denies any heart failure symptoms. Denies any prolonged irregular heartbeat or palpitations. No exertional chest pain. [facility] Medical History Complicated urinary tract infection Dysphagia Screening for breast cancer Abnormal ultrasound of breast Abnormal mammogram of left breast Multiple falls Physical deconditioning Breast cancer, left Breast cancer Chronic renal insufficiency HTN (hypertension) Cardiac pacemaker in situ AV block Leg edema Screening for diabetes mellitus On beta jake at home Arthritis Vertigo MARIELA (obstructive sleep apnea) Sick sinus syndrome Peripheral vascular disease Menieres disease Urinary bladder cancer Obesity Gout GERD (gastroesophageal reflux disease) Hypercholesterolemia Surgical History History of lumpectomy of left breast (03/10/23) History of esophagogastroduodenoscopy (EGD) S/P cardiac pacemaker procedure Hx of colonoscopy History of cystoscopy S/P MARION-BSO (total abdominal hysterectomy and bilateral salpingo-oophorectomy) History of cataract surgery History of knee replacement History of tonsillectomy History of appendectomy History of cholecystectomy Family History Father Stroke Mother Heart disease Social History Household Members: None Housing: Apartment Are you a primary home care liaison to a significant other at home: No Do you presently have visiting nurse or other home services: No Alcohol intake: current Alcohol intake frequency: does not drink Patient Tobacco Use Status: Former Tobacco user Tobacco use type: Cigarette e-Cigarette/Vaping Use: Never Used Second Hand Smoke Exposure: No service: No Current occupational status: retired Cognitive needs: No Hearing needs: Yes Vision needs: Yes Review of Systems Const Denies chills, Denies fatigue, Denies fever(s), Denies frequent falls, Denies weakness, Denies weight gain and Denies weight loss ENT Denies dizziness Card Denies chest pain, Denies leg edema, Denies lightheadedness, Denies palpitations, Denies dyspnea, Denies dyspnea on exertion, Denies orthopnea and Denies other (loss of consciousness) Resp Denies cough, Denies dyspnea and Denies dyspnea on exertion GI Denies hematochezia and Denies change in stool character Musc Denies abnormal gait, Denies muscle weakness, Denies numbness, Denies radiating pain into limb and Denies tingling Neuro Denies Abnormal speech present, Denies abnormal gait, Denies dizziness, Denies frequent falls, Denies numbness, Denies tingling and Denies weakness Endo Denies fatigue and Denies palpitations Physical Exam Vital Signs: Last Vital Signs Pulse 70 10/21/23 14:15 BP 110/70 10/21/23 14:15 BMI result Body Mass Index 30.4 Const General: cooperative and no acute distress HEENT Other: Unremarkable Neck Neck: Yes normal visual inspection Chest Chest palpation & inspection: normal inspection of the chest Resp Auscultation: clear to auscultation bilaterally, no crackles and no wheezes Cardio Jugular venous distension: no JVD Palpation: normal PMI Heart sounds: S1 normal heart sound present, S2 normal heart sound present, no gallops, no murmurs and no rubs GI Palpation (GI): Soft to palpation Back/Spine/Pelvis Other: unremarkable Skin General skin exam: no rashes or lesions noted Neuro Cranial nerves: Yes Other cranial nerve findings present Speech: No Abnormal speech present Extrem General: No clubbing, No cyanosis and Yes edema ( Bilateral lymphedema, right greater than left) Psych Mental Status: other Office Procedures Cardiac Device Check Cardiac Device Check Details: Dual-chamber Medtronic pacemaker in place. Programmed in MVP mode with rate response at 60 beats per minute. Ventricularly pacer dependent. Few episodes of atrial fibrillation noted overall burden less than 10 minutes. Atrial sensing is adequate. Atrial ventricular pacing thresholds adequate and reprogrammed to enhance safety. Pacing lead impedance is stable. Battery life is about 14 months [id number] Cardiac Device Check, pacemaker dual lead Procedure code (CPT) selection complete Assessment & Plan Assessment & Plan (1) Cardiac pacemaker in situ: Comment: Medtronic dual-chamber pacemaker in place Code(s): Z95.0 - Presence of cardiac pacemaker Category: Medical Plan: Cardiac pacemaker in-situ for heart block with patient ventricularly pacer dependent. Pacemaker is working well. She wants to continue follow in the clinic every 6 months rather than remote monitoring. Will provide with the same. (2) Essential hypertension: Code(s): I10 - Essential (primary) hypertension Category: Medical Plan: Hypertension which is currently well optimized advised to monitor blood pressure at home maintain a log. Goal blood pressure less than 130/84. Advised to continue current therapy. Importance of low-salt diet was discussed. (3) Paroxysmal atrial fibrillation: Code(s): I48.0 - Paroxysmal atrial fibrillation Category: Medical Plan: Paroxysmal atrial fibrillation noted incidentally on pacer telemetry. She has no symptoms related to it. No further therapy required. Overall burden is small and does not require long-term oral anticoagulation therapy at this time. Will follow up in the clinic in 6 months' time on her request Coding Level of Care Code Est Pt Level 4 (91776) Diagnoses Cardiac pacemaker in situ Z95.0 Essential hypertension I10 Paroxysmal atrial fibrillation I48.0 CPT Codes Cardiac Device Check - Cardiac Device 2: [id number] Cardiac Device Check, pacemaker dual lead ([id number])
== END 2023-10-21 14:44 | disposition home or self-care (01) ==
PROVIDERS: PCP Internal Medicine; Visit Provider Internal Medicine Cardiovascular Disease
DX: I10 Essential (primary) hypertension (principal); I48.0 Paroxysmal atrial fibrillation; Z95.0 Presence of cardiac pacemaker
CPT/HCPCS: 93280; 99214

== ENCOUNTER → 2023-10-21 14:02 | Outpatient (BNVA) | payer MEDICARE, SELFPAY | PROVIDERS: PCP Internal Medicine; Visit Provider Internal Medicine Cardiovascular Disease | DX: Z45.018 Encounter for adjustment and management of other part of cardiac pacemaker (principal); I10 Essential (primary) hypertension; I48.0 Paroxysmal atrial fibrillation | CPT/HCPCS: 93280; 99212 ==

== ENCOUNTER 2023-10-27 12:38 | Outpatient (AMB) | payer MEDICARE, SELFPAY ==
--- NOTE | 2023-10-27 13:05 | MHC.OFFVIS ---
Intake Visit Reasons: 4M Cysto(Bladder Ca) Intake Note: Patient is Present for Cystoscopy Urology Med: None Antibiotic Allergy: None Blood Thinner: Aspirin URO- G Disposable Cystoscope lot:[id number] exp: 05/27/2026 Allergies No Known Allergies [No Known Allergies*] Allergy (Verified 10/27/23 13:20) HPI Comments Details: 10/27/23--here for surveillance office cystoscopy, patient of Dr Dowell followed for - bladder cancer high-grade superficial She states she is doing well. No complaints. Office cystoscopy- mild inflammatory changes, no suspicious lesions, voided urine not sufficient to send for cytology. Review of chart: 07/28/23--Completed TURBT low-grade multifocal Would complete 2 more mitomycin-C with cytarabine immunotherapy dosages Office cystoscopy 3 months Bladder cancer initial diagnosis February 2019 - last TURBT September 2021 high-grade Bladder cancer diagnosed TURBT December 2019 - high-grade noninvasive Further follow-up was postponed secondary to COVID Bladder procedures - December 2019 TURBT - June 2020 TURBT high-grade noninvasive - January 2021 TURBT high-grade noninvasive - 10/01 TURBT high-grade noninvasive - 08/03 TURBT low-grade multifocal Cystoscopy - 08/02 NAD, 03/04 NAD Adjuvant therapy - June 2020 - induction gemcitabine, February 2021 repeat induction gemcitabine - Boost 01/01 gemcitabine, 05/04 gemcitabine, 10/02 gemcitabine Cytology - 01/01 NAD, 05/04 NAD PFSH Medical History Complicated urinary tract infection Dysphagia Screening for breast cancer Abnormal ultrasound of breast Abnormal mammogram of left breast Multiple falls Physical deconditioning Breast cancer, left Breast cancer Chronic renal insufficiency HTN (hypertension) Cardiac pacemaker in situ AV block Leg edema Screening for diabetes mellitus On beta jake at home Arthritis Vertigo MARIELA (obstructive sleep apnea) Sick sinus syndrome Peripheral vascular disease Menieres disease Urinary bladder cancer Obesity Gout GERD (gastroesophageal reflux disease) Hypercholesterolemia Surgical History History of lumpectomy of left breast (03/10/23) History of esophagogastroduodenoscopy (EGD) S/P cardiac pacemaker procedure Hx of colonoscopy History of cystoscopy S/P MARION-BSO (total abdominal hysterectomy and bilateral salpingo-oophorectomy) History of cataract surgery History of knee replacement History of tonsillectomy History of appendectomy History of cholecystectomy Family History Father Stroke Mother Heart disease Social History Household Members: None Housing: Apartment Are you a primary plant care worker to a significant other at home: No Do you presently have visiting nurse or other home services: No Alcohol intake: current Alcohol intake frequency: does not drink Patient Tobacco Use Status: Former Tobacco user Tobacco use type: Cigarette e-Cigarette/Vaping Use: Never Used Second Hand Smoke Exposure: No service: No Current occupational status: retired Cognitive needs: No Hearing needs: Yes Vision needs: Yes Review of Systems Const All systems reviewed & are unremarkable except as noted in HPI and below Reports no additional complaints Eyes Reports no additional complaints ENT Reports no additional complaints Card Reports no additional complaints Resp Reports no additional complaints GI Reports no additional complaints Reports as per HPI Musc Reports no additional complaints Skin/Breast Reports system reviewed and no additional complaints, except as documented Neuro Reports no additional complaints Psych Reports no additional complaints Endo Reports no additional complaints Arsenio/Lymph Reports no additional complaints Aller/Immun Reports no additional complaints Office Procedures Cystoscopy Consent Discussed risk and benefit or proposed procedure with the patient. Information consent for procedure given to the patient. Discussed technical aspects, risks, benefits and alternatives in full. Addressed all of the patient's questions and concerns regarding the procedure. The patient demonstrated knowledge and understanding. They wish to proceed with this procedure. Preparation The patient was prepped in the usual manner. A collection analyst was present and in the room. Genitalia was prepped with betadine solution in a sterile manner. Lidocaine Jelly 2% was placed into the urethra and 16Fr flexible Olympus cystoscope was inserted into the meatus after adequate lubrication. Time out per protocol performed. Bladder Inspection Bladder Inspection: The bladder was inspected in its entirety with utilization retroflexion displaying: Tumor(s): no suspicious lesions visualized Trabeculation: mild-mod Mucosal Erthema: mild Orifices: normal shape and position Urethra: normal Cystoscopy findings: no suspicious bladder lesions visualized [id number] DISPOSABLE SCOPE URO-G FLEXIBLE SCOPE Procedure code (CPT) selection complete Office Meds lidocaine HCl 2 % mucosal jelly in applicator Performing Provider: Francisco Dowell MD [place] [facility] Administered by: Korey Pedro LPN on 10/27/23 13:33 Dose Route Admin Location Dispensed Lot Number Expiration Date ND Storage Management Consultant 10 mL intra-urethral 10 mL nitrofurantoin monohydrate/macrocrystals 100 mg capsule Performing Provider: Francisco Dowell MD [place] [facility] Administered by: Korey Pedro LPN on 10/27/23 13:33 Dose Route Admin Location Dispensed Lot Number Expiration Date NDC Storage Management Consultant 100 mg PO 1 cap naproxen 500 mg tablet Performing Provider: Francisco Dowell MD [place] [facility] Administered by: Korey Pedro LPN on 10/27/23 13:33 Dose Route Admin Location Dispensed Lot Number Expiration Date NDC Storage Management Consultant 500 mg PO 1 tab Results AMB Urinalysis, Automated UA Leukoctes 70 Stephanie/uL Last Edit by APARNA Mai on 10/27/23 13:35 UA Nitrite Negative Last Edit by Alvina Almonte [facility] on 10/27/23 13:35 UA Urobilinogen 0.2 mg/dL Last Edit by Alvina Almonte Keyla on 10/27/23 13:35 UA Protein 30 mg/dL Last Edit by Alvina Almonte [facility] on 10/27/23 13:35 UA pH 5.0 Last Edit by Alvina Almonte [facility] on 10/27/23 13:35 UA Blood 0 Dc/uL Last Edit by Alvina Almonte [facility] on 10/27/23 13:35 UA Specific [place] 1.020 Last Edit by Alvina Almonte [facility] on 10/27/23 13:35 UA Ketone Positive Last Edit by Alvina Almonte Keyla on 10/27/23 13:35 UA Bilirubin 2 mg/dL Last Edit by Alvina Almonte [facility] on 10/27/23 13:35 UA Glucose 0 mg/dL Last Edit by Alvnia Almonte [facility] on 10/27/23 13:35 Results Reviewed Results Reviewed: Laboratory Last Values Urine pH (Auto) 5.0 10/27/23 13:21 Specific [place] (Auto) 1.020 10/27/23 13:21 Urine Protein (Auto) 30 mg/dL 10/27/23 13:21 Glucose (UA)(Auto) 0 mg/dL 10/27/23 13:21 Urine Ketones (Auto) Positive 10/27/23 13:21 Urine Blood (Auto) 0 Dc/uL 10/27/23 13:21 Urine Nitrite (Auto) Negative 10/27/23 13:21 Urine Bilirubin (Auto) 2 mg/dL 10/27/23 13:21 Urine Urobilinogen (Auto) 0.2 mg/dL 10/27/23 13:21 Leukocyte Esterase (Auto) 70 Stephanie/uL 10/27/23 13:21 Assessment & Plan Assessment & Plan (1) Urinary bladder cancer: Comment: TURBT superficial high-grade Dr. Meza TURBT Dr. 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, 06/30 HG Superficial September 2021 TURBT and gemcitabine installation Code(s): C67.9 - Malignant neoplasm of bladder, unspecified Category: Medical Qualifiers: Bladder location: unspecified site Qualified Code(s): C67.9 - Malignant neoplasm of bladder, unspecified Plan Fu cystoscopy surveillance in 3 months Orders: Orders AMB Cystoscopy Today C67.9 - Malignant neoplasm of bladder, unspecified AMB Urinalysis Automated Today Z13.9 - Encounter for screening, unspecified Patient Instructions: The patient had an opportunity to ask questions regarding treatment plan. The patient expressed understanding and agreement with the above treatment plan. The patient is aware they should contact our office by phone for worsening of their current condition or the appearance of new symptoms. Compliance is encouraged with any medications and followup testing that is ordered. It is a privilege to be allowed the opportunity to participate in the urologic care of your patient. If you have any questions or concerns regarding treatment for the above conditions please do not hesitate to contact me. The office telephone contact is [phone]. This note is constructed in part using voice recognition software. While every effort has been made to ensure accuracy lump roller errors may have been included. Yours sincerely, Josephine Sheehan MD Coding Level of Care Code Procedure Only Diagnoses Malignant neoplasm of urinary bladder, unspecified site C67.9 Bladder location: unspecified site CPT Codes Cystoscopy - CPT: 96972-Ignezqpitr ([id number])
== END 2023-10-27 14:10 | disposition home or self-care (01) ==
PROVIDERS: PCP Internal Medicine; Visit Provider Urology
DX: C67.9 Malignant neoplasm of bladder, unspecified (principal); Z13.9 Encounter for screening, unspecified
CPT/HCPCS: 52000

== ENCOUNTER → 2023-10-27 12:38 | Outpatient (BNVA) | payer MEDICARE, SELFPAY | PROVIDERS: PCP Internal Medicine; Visit Provider Urology | DX: C67.9 Malignant neoplasm of bladder, unspecified (principal) | CPT/HCPCS: 52000; 81003 ==

== ENCOUNTER 2023-12-02 14:40 | Outpatient (AMB) | payer MEDICARE, SELFPAY ==
[2023-12-02 14:44] VITALS: BP 122/78; PULSE 77; O2SAT 95; BMI 31.4
--- NOTE | 2023-12-02 14:44 | A.OFFPC_ITS ---
Vital Signs 12/02/23 14:44 Height 5 ft 1 in Weight 166 lb BMI 31.4 BP 122/78 Blood Pressure Location Lt brachial Position Sitting Pulse 77 Pulse Source Pulse Oximeter Pulse Oximetry (%) 95 Oxygen Delivery Method Room Air Intake Visit Reasons: cholesterol, L breast cancer Allergies No Known Allergies [No Known Allergies*] Allergy (Verified 12/02/23 14:48) Tobacco use date assessed: 07/23/23 Fall risk assessment: No Falls in past year Last assessed Fall Risk: 12/02/23 Dental Screening Dental Screen Date: 07/23/23 HPI cholesterol, L breast cancer HPI Details 88-year-old obese female with left breas t cancer hypertension urinary bladder cancer hypercholesterolemia coming in for follow-up. Last seen in 07/31/2023. Review of the notes has seen Urology for the bladder cancer surveillance had a cystoscopy with no suspicious lesions receiving mitomycin and gemcitabine. Patient also follows up with Cardiology has declined chemotherapy for breast cancer patient is pacemaker dependent blood pressure is good as for the atrial fibrillation continue to monitor. Patient has also met with the accounting instructor in August esophageal dysmotility continuing to monitor [facility] Medical History Complicated urinary tract infection Dysphagia Screening for breast cancer Abnormal ultrasound of breast Abnormal mammogram of left breast Multiple falls Physical deconditioning Breast cancer, left Breast cancer Chronic renal insufficiency HTN (hypertension) Cardiac pacemaker in situ AV block Leg edema Screening for diabetes mellitus On beta jake at home Arthritis Vertigo MARIELA (obstructive sleep apnea) Sick sinus syndrome Peripheral vascular disease Menieres disease Urinary bladder cancer Obesity Gout GERD (gastroesophageal reflux disease) Hypercholesterolemia Surgical History History of lumpectomy of left breast (03/10/23) History of esophagogastroduodenoscopy (EGD) S/P cardiac pacemaker procedure Hx of colonoscopy History of cystoscopy S/P MARION-BSO (total abdominal hysterectomy and bilateral salpingo-oophorectomy) History of cataract surgery History of knee replacement History of tonsillectomy History of appendectomy History of cholecystectomy Family History Father Stroke Mother Heart disease Social History Household Members: None Housing: Apartment Are you a primary healthcare or medical to a significant other at home: No Do you presently have visiting nurse or other home services: No Alcohol intake: current Alcohol intake frequency: does not drink Patient Tobacco Use Status: Former Tobacco user Tobacco use type: Cigarette e-Cigarette/Vaping Use: Never Used Second Hand Smoke Exposure: No service: No Current occupational status: retired Cognitive needs: No Hearing needs: Yes Vision needs: Yes Questionnaire PHQ-9 Over the last 2 weeks, how often have you been bothered by any of the following problems? 1. Little interest or pleasure in doing things: not at all 2. Feeling down, depressed, or hopeless: not at all 3. Trouble falling or staying asleep, or sleeping too much: not at all 4. Feeling tired or having little energy: not at all 5. Poor appetite or overeating: not at all 6. Feeling bad about yourself - or that you are a failure or have let yourself or your family down: not at all 7. Trouble concentrating on things, such as reading the newspaper or watching television: not at all 8. Moving or speaking so slowly that other people could have noticed. Or the opposite - being so fidgety or restless that you have been moving around a lot more than usual: not at all 9. Thoughts that you would be better off or of hurting yourself in some way: not at all Total score: 0 Depression Screening Interpretation: Negative Depression Screening Done: Yes 26195 - PHQ-9 Billing: Yes Source: Developed by Drs. Wilver Hightower, Tanya Bardales, Thomas Perry and colleagues, with an educational mike from [employer]. Thrive Questionnaire Date Thrive assessed: 07/23/23 AUDIT C Alcohol Use Questionnaire (AUDIT-C) 1. How often do you have a drink containing alcohol?: Never 3. How often do you have six or more drinks on one occasion?: Never Total Score: 0 DESI-7 AMB Questionnaire DESI-7 Date DESI - 7 assessed: 05/12/23 Source: Developed by Drs. Wilver Hightower, Tanya Bardales, Thomas Perry and colleagues, with an educational mike from [employer]. Physical exam (Primary Care) Vital Signs: Last Vital Signs Pulse 77 12/02/23 14:44 BP 122/78 12/02/23 14:44 Pulse Ox 95 12/02/23 14:44 Oxygen Delivery Method Room Air 12/02/23 14:44 BMI result Body Mass Index 31.4 Tobacco/Smoking Status: Tobacco use Status Tobacco use date assessed 07/23/23 12/02/23 14:51 Patient Tobacco Use Status Former Tobacco user 12/02/23 14:51 Tobacco use type Cigarette 12/02/23 14:51 e-Cigarette/Vaping Use Never Used 12/02/23 14:51 PHQ-9: PHQ-9 Score PHQ-9: Total score 0 12/02/23 14:51 Depression Screening Interpretation: Negative Thrive Assessment: Date of Thrive Assessment Date Thrive assessed 07/23/23 12/02/23 14:51 Const General: alert; No acute distress Eyes Conjunctivae: conjunctivae normal Resp Auscultation: clear to auscultation bilaterally Cardio Rate: regular rate Rhythm: regular rhythm GI Inspection: Yes normal to inspection Extrem General: Yes normal to inspection and No edema Assessment and Plan Assessment & Plan (1) Paroxysmal atrial fibrillation: Code(s): I48.0 - Paroxysmal atrial fibrillation Plan: Continuing to be followed up by Cardiology (2) Invasive ductal carcinoma of left breast: Comment: Left breast lumpectomy February 2023 Code(s): C50.912 - Malignant neoplasm of unspecified site of left female breast Plan: seeing Hematolology and oncology (3) Esophageal dysmotility: Comment: 2017 Code(s): K22.4 - Dyskinesia of esophagus Plan: Follows up with GI and doing good. (4) Urinary bladder cancer: Comment: TURBT superficial high-grade Dr. Meaz TURBT Dr. 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, 06/30 HG Superficial September 2021 TURBT and gemcitabine installation Code(s): C67.9 - Malignant neoplasm of bladder, unspecified Qualifiers: Bladder location: unspecified site Qualified Code(s): C67.9 - Malignant neoplasm of bladder, unspecified Plan: continue to ff up with Urology (5) GERD (gastroesophageal reflux disease): Code(s): K21.9 - Gastro-esophageal reflux disease without esophagitis Qualifiers: Esophagitis presence: without esophagitis Qualified Code(s): K21.9 - Gastro-esophageal reflux disease without esophagitis Plan: Avoid the foods that causes that usually spicy foods, tomato products, juices, coffee, soda and foods that your sensitive to. After eating do not lie down, allow 3-4 hours before in lie down. And keep the head of bed above 30 degrees to avoid the acid from going up. (6) Leg swelling: Code(s): M79.89 - Other specified soft tissue disorders Plan: elevate legs and keep active , support stockings (7) Nasal congestion: Code(s): R09.81 - Nasal congestion Plan: allergy med (8) Cognitive change: Code(s): R41.89 - Other symptoms and signs involving cognitive functions and awareness Plan: work up advised Orders: Orders UA and rflx microscopic Today C67.9 - Malignant neoplasm of bladder, unspecified CT head/brain wo IV con Today R41.89 - Other symptoms and signs involving cognitive functions and awareness Coding Level of Care Code Est Pt Level 4 (24808) Diagnoses Paroxysmal atrial fibrillation I48.0 Invasive ductal carcinoma of left breast C50.912 Esophageal dysmotility K22.4 Malignant neoplasm of urinary bladder, unspecified site C67.9 Bladder location: unspecified site Gastroesophageal reflux disease without esophagitis K21.9 Esophagitis presence: without esophagitis Leg swelling M79.89 Nasal congestion R09.81 Cognitive change R41.89
== END 2023-12-02 15:52 | disposition home or self-care (01) ==
PROVIDERS: PCP Internal Medicine; Visit Provider Internal Medicine
DX: I48.0 Paroxysmal atrial fibrillation (principal); C50.912 Malignant neoplasm of unspecified site of left female breast; K22.4 Dyskinesia of esophagus; C67.9 Malignant neoplasm of bladder, unspecified; K21.9 Gastro-esophageal reflux disease without esophagitis; M79.89 Other specified soft tissue disorders; R09.81 Nasal congestion; R41.89 Other symptoms and signs involving cognitive functions and awareness
CPT/HCPCS: 99214

== ENCOUNTER 2023-12-21 10:18 | Outpatient (REF) | payer MEDICARE, SELFPAY ==
[2023-12-21 10:41] LABS: MANUAL DIFF FLAG NO
[2023-12-21 10:54] LABS: Basophils Absolute Auto 0.1 X10*3/uL (0.0-0.2); Basophils Percent Auto 1.1 % (0-2); Eosinophils Absolute Auto 0.2 X10*3/uL (0.0-0.4); Eosinophils Percent Auto 3.2 % (0-4); Hemoglobin 12.5 g/dl (12.0-16.0); Imm Gran Abs Auto 0.02 X10*3/uL (0.00-0.03); Imm Gran Pct Auto 0.3 % (0.0-0.4); Lymphocytes Absolute Auto 1.6 X10*3/uL (1.2-4.9); Lymphocytes Percent Auto 24.3 % (20-40); Mean Corpuscular HGB Conc 32.9 g/dl (31.0-35.0); Mean Corpuscular Hemoglobin 29.8 pg (27.0-33.0); Mean Corpuscular Volume 90.5 fL (80.0-98.0); Mean Platelet Volume 9.7 fL (9.4-12.3); Monocytes Absolute Auto 0.8 X10*3/uL (0.1-1.2); Monocytes Percent Auto 12.2 % (2-11); Neutrophils Absolute Auto 3.8 x10*3/uL (2.0-8.3); Neutrophils Percent Auto 58.9 % (45-73); Platelet Count 369 X10*3/uL (160-400); Red Cell Distribution Width 13.7 % (11.0-16.0); White Blood Count 6.5 X10*3/uL (4.8-10.8)
[2023-12-21 11:26] LABS: Estimated Average Glucose 108 mg/dL; Hemoglobin A1c % 5.4 % (<6.0)
[2023-12-21 12:01] LABS: Alanine Aminotransferase 8 U/L (0-31); Albumin Level 3.7 g/dL (3.5-5.0); Alkaline Phosphatase 112 U/L (39-117); Anion Gap 12 (12-20); Aspartate Amino Transferase 22 U/L (5-31); Bilirubin Total 0.5 mg/dL (0.0-1.0); Blood Urea Nitrogen 33 mg/dL (9-16); Calcium 9.4 mg/dL (8.4-10.2); Carbon Dioxide 29 mmol/L (22-29); Chloride 102 mmol/L (96-108); Cholesterol 121 mg/dL (<200); Estimated Glomerular Filt Rate 45; Glucose Random 93 mg/dL (60-115); HDL Cholesterol 49 mg/dL (>40); LDL Cholesterol Calculated 60 mg/dL (<100); Potassium 3.4 mmol/L (3.3-5.1); Sodium 140 mmol/L (135-145); Total Protein 7.3 g/dL (6.5-8.0); Triglycerides 64 mg/dL (<150)
[2023-12-21 12:15] LABS: Folate 7.4 ng/mL (> or = 4.0); Vitamin B12 > 2000 pg/mL (200-900)
[2023-12-21 12:17] LABS: Free T4 (Free Thyroxine) 1.02 ng/dL (0.71-1.85); Thyroid Stimulating Hormone 2.28 uIU/mL (0.32-4.0)
== END 2023-12-21 10:19 | disposition home or self-care (01) ==
LOC: HO.LAB 10:18
PROVIDERS: PCP Internal Medicine; Visit Provider Internal Medicine
DX: E78.00 Pure hypercholesterolemia, unspecified (principal); R73.01 Impaired fasting glucose
CPT/HCPCS: 36415; 80053; 80061; 82607; 82746; 83036; 84439; 84443; 85025

== ENCOUNTER 2023-12-24 16:50 | Outpatient (REF) | payer MEDICARE, SELFPAY ==
--- NOTE | ~2023-12-24 | CT_ITS ---
EXAMINATION CT HEAD WITHOUT CONTRAST CLINICAL INFORMATION: Cognitive changes COMPARISON: CT head March 25, 2023 TECHNIQUE: CT of the head was performed without intravenous contrast. Reformatted axial, coronal, and sagittal images were reviewed. This CT examination was performed using dose optimization techniques as appropriate, variously including the following: *Automated exposure control *Adjustment of mA and/or kV according to patient size (this includes techniques or standardized protocols for targeted exams where dose is matched to indication/reason for exam; i.e. extremities or head) *Use of iterative reconstruction technique DLP: 664 mGy-cm FINDINGS: No intracranial hemorrhage, extra-axial fluid collection, or midline shift is identified. Kwon-white matter differentiation is preserved. Prominence of the cerebral sulci with commensurate ventricular megaly consistent with age-related cerebral volume loss. Periventricular white matter hypoattenuation consistent with chronic small vessel ischemic disease. Chronic right cerebellar infarct. Basal cisterns are within normal limits. Paranasal sinuses are clear. Mastoid air cells and middle ear cavities are clear. No acute calvarial fractures. CT/CT head/brain wo IV con IMPRESSION: 1. No acute intracranial abnormality. 2. Chronic small vessels disease and age-related cerebral volume loss. Electronically signed by: Jose Gibson DO 01/02/2024 11:15 AM EDT
== END 2023-12-24 16:51 | disposition home or self-care (01) ==
LOC: HO.CT 16:50
PROVIDERS: PCP Internal Medicine; Visit Provider Internal Medicine
DX: R41.89 Other symptoms and signs involving cognitive functions and awareness (principal)
CPT/HCPCS: 70450

== ENCOUNTER 2024-01-11 10:01 | Outpatient (AMB) | payer MEDICARE, SELFPAY ==
--- NOTE | 2024-01-11 10:09 | AM.OFFVISMDC ---
Intake Vital Signs 01/11/24 10:10 Height 5 ft 1 in Weight 163 lb 0.8 oz BMI 30.8 BP 112/64 Blood Pressure Location Lt brachial Position Sitting Pulse 77 Pulse Source Pulse Oximeter Pulse Oximetry (%) 95 Oxygen Delivery Method Room Air Intake Visit Reasons: SAWV Intake Note: Patient is here for an Annual Wellness Visit. 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: No Allergies No Known Allergies [No Known Allergies*] Allergy (Verified 01/11/24 10:10) Medication List - Last Reconciled 01/11/24 by Román Naik MD amlodipine 5 mg PO DAILY aspirin (Adult Low Dose Aspirin) 81 mg PO DAILY cholecalciferol (vitamin D3) 25 mcg PO DAILY coenzyme Q10 (Co Q-10) 100 mg PO DAILY cyanocobalamin (vitamin B-12) 1,000 mcg PO DAILY gabapentin 300 mg PO BEDTIME meclizine 25 mg PO DAILY metoprolol succinate ER 50 mg PO DAILY 90 days nystatin 1 appl topical BID omeprazole 20 mg PO DAILY polyethylene glycol 3350 (Miralax) 17 grams PO DAILY PRN propylene glycol 0.6% (Systane Balance) 1 drp ophthalmic (eye) DAILY PRN simvastatin 20 mg PO BEDTIME HPI SAWV HPI Details 88-year-old obese female with atrial fibrillation left breast cancer urinary bladder cancer GERD last seen in 11/30/2023. Patient had some confusion and a CT scan of the head was done in January 01 showing no acute abnormality does show some chronic small-vessel disease and age related so labral volume loss.. BP low so d/c HCTZ PFSH Medical History Complicated urinary tract infection Dysphagia Screening for breast cancer Abnormal ultrasound of breast Abnormal mammogram of left breast Multiple falls Physical deconditioning Breast cancer, left Breast cancer Chronic renal insufficiency HTN (hypertension) Cardiac pacemaker in situ AV block Leg edema Screening for diabetes mellitus On beta jake at home Arthritis Vertigo MARIELA (obstructive sleep apnea) Sick sinus syndrome Peripheral vascular disease Menieres disease Urinary bladder cancer Obesity Gout GERD (gastroesophageal reflux disease) Hypercholesterolemia Surgical History History of lumpectomy of left breast (03/10/23) History of esophagogastroduodenoscopy (EGD) S/P cardiac pacemaker procedure Hx of colonoscopy History of cystoscopy S/P MARION-BSO (total abdominal hysterectomy and bilateral salpingo-oophorectomy) History of cataract surgery History of knee replacement History of tonsillectomy History of appendectomy History of cholecystectomy Family History Father Stroke Mother Heart disease Social History Household Members: None Housing: Apartment Are you a primary hearing care professional to a significant other at home: No Do you presently have visiting nurse or other home services: No Alcohol intake: current Alcohol intake frequency: does not drink Patient Tobacco Use Status: Former Tobacco user Tobacco use type: Cigarette e-Cigarette/Vaping Use: Never Used Second Hand Smoke Exposure: No service: No Current occupational status: retired Cognitive needs: No Hearing needs: Yes Vision needs: Yes Questionnaire Medicare Wellness Checkup What is your age?: 80 or older What gender do you identify with?: female During the past 4 weeks, how much have you been bothered by emotional problems such as feeling anxious, depressed, irritable, sad or downhearted, and blue?: slightly During the past 4 weeks, has your physical & emotional health limited your social activities with family, friends, neighbors, or groups?: not at all During the past 4 weeks, how much bodily pain have you generally had?: no pain (legs ) During the past 4 weeks, was someone available to help you if you needed & wanted help?: yes, some During the past 4 weeks, what was the hardest physical activity you could do for at least 2 minutes?: heavy Can you get to places out of walking distance without help? (For eg., can you travel alone on buses, taxis or drive your car?): Yes Can you go shopping for groceries or clothes without someone's help?: Yes Can you prepare your own meals?: Yes Can you do your housework without help?: Yes Because of any health problems, do you need the help of another person with your personal care needs such as eating, bathing, dressing or getting around the house?: No Can you handle your own money without help?: Yes During the past 4 weeks, how would you rate your health in general?: excellent During the past 4 weeks how have things been going for you?: pretty well Are you having difficulties driving your car?: no Do you always fasten your seat belt when you are in a car?: yes, usually During past 4 weeks, have you been bothered by the following: never: Sexual problems?, Trouble eating well?, Teeth or denture problems?, Problems using the telephone? and Tiredness or fatigue? and sometimes: Falling or dizzy when standing up Have you fallen 2 or more times in the past year?: No Are you afraid of falling?: Yes Are you a smoker?: no During the past 4 weeks, how many drinks of wine, beer, or other alcoholic beverages did you have?: no alcohol at all Do you exercise for about 20 minutes 3 or more times a week?: no, I usually do not exercise this much Have you been given information to help with the following?: no: Hazards in your house that might hurt you? and no: Keeping track of your medications? How often do you have trouble taking medicines the way you have been told to take them?: I always take medicine as prescribed How confident are you that you can control & manage most of your health problems?: very confident What is your race?: White PHQ-9 Over the last 2 weeks, how often have you been bothered by any of the following problems? 1. Little interest or pleasure in doing things: not at all 2. Feeling down, depressed, or hopeless: not at all 3. Trouble falling or staying asleep, or sleeping too much: not at all 4. Feeling tired or having little energy: several days 5. Poor appetite or overeating: not at all 6. Feeling bad about yourself - or that you are a failure or have let yourself or your family down: not at all 7. Trouble concentrating on things, such as reading the newspaper or watching television: not at all 8. Moving or speaking so slowly that other people could have noticed. Or the opposite - being so fidgety or restless that you have been moving around a lot more than usual: not at all 9. Thoughts that you would be better off or of hurting yourself in some way: not at all Total score: 1 Depression Screening Interpretation: Negative Depression Screening Done: Yes 91979 - PHQ-9 Billing: Yes Source: Developed by Drs. Wilver Hightower, Tanya Bardales, Thomas Perry and colleagues, with an educational mike from [employer]. Review of Systems Const Denies poor appetite and Denies weakness Eyes Denies no additional complaints ENT Reports Normal hearing present, Denies dizziness, Denies nasal congestion, Denies tinnitus and Denies sore throat Card Denies chest pain, Denies syncope, Denies rapid heart rate and Denies dyspnea Resp Denies cough and Denies dyspnea GI Denies change in stool character, Reports constipation, Denies diarrhea, Denies nausea and Denies vomiting Denies urinary frequency, Denies difficulty voiding and Denies dysuria Neuro Reports Normal hearing present, Denies confusion, Denies dizziness, Denies syncope and Denies weakness Psych Denies confusion Physical Exam Vital Signs: Last Vital Signs Pulse 77 01/11/24 10:10 BP 112/64 01/11/24 10:10 Pulse Ox 95 01/11/24 10:10 Oxygen Delivery Method Room Air 01/11/24 10:10 BMI result Body Mass Index 30.8 Const General: No confusion Orientation/consciousness: No confusion HEENT Other: impacted cerument bilateral but L ear cannot hear, has the hearing aid on the R ear Head: Yes normocephalic Ears: external ears normal Face and sinus: Yes normal facial exam Mouth: moist mucous membranes Throat: Yes tonsils normal Eyes Conjunctivae: conjunctivae normal Pupils: Equal, round and reactive pupils present and Pupil accommodation reflex normal Direct Ophthalmoscopy: normal light reflex Neck Neck: No lymphadenopathy Thyroid: Thyroid normal Chest Chest palpation & inspection: normal inspection of the chest Resp Effort & Inspection: normal respiratory effort and no audible wheezes Auscultation: clear to auscultation bilaterally, no crackles, no wheezes and lung sounds not diminished Cardio Rate: regular rate Rhythm: regular rhythm Peripheral pulses: radial pulses present and dorsalis pedis present GI Palpation (GI): no masses Auscultation: normal bowel sounds and normoactive bowel sounds Rectal Exam - Female: deferred Skin General skin exam: no rashes or lesions noted Rashes: no rashes Neuro General: No confusion Cranial nerves: Yes Equal, round and reactive pupils present and Yes Normal hearing present Cognition (Neuro): normal cognition Gait exam (Neuro): Normal gait present Motor exam (neuro): 5/5 motor strength present throughout Deep tendon reflexes (DTR's): Right brachioradialis reflex intensity grade: 2+, Left brachioradialis reflex intensity grade: 2+, Right patellar reflex intensity grade: 2+ and Left patellar reflex intensity grade: 2+ Extrem General: No edema Office Procedures Cerumen Removal From which ear canal was the cerumen removed: right Removal: otoscope w/curette and cerumen loop/spoon Notes: patient tolerated procedure well, no complications and ear canal clear [id number] Wax Removal by Spoon/Curette Assessment & Plan Assessment & Plan (1) Medicare annual wellness visit, subsequent: Code(s): Z00.00 - Encounter for general adult medical examination without abnormal findings Plan: Patient is advised to eat healthy, keep well hydrated, keep active and have adequate sleep. (2) Paroxysmal atrial fibrillation: Comment: Incidentally found on pacer therapy no treatment(patient has seen Cardiology) Code(s): I48.0 - Paroxysmal atrial fibrillation Plan: Continue with monitoring. (3) Invasive ductal carcinoma of left breast: Comment: Left breast lumpectomy February 2023 Code(s): C50.912 - Malignant neoplasm of unspecified site of left female breast Plan: Patient has declined treatment. Continuing to monitor (4) Essential hypertension: Code(s): I10 - Essential (primary) hypertension Plan: Continue with blood pressure medication. Decrease salt intake and exercise patient on amlodipine 5 mg once a day hydrochlorothiazide 25 mg once a day metoprolol 50 mg once a day. noted BP low will d/c hctz (5) Urinary bladder cancer: Comment: TURBT superficial high-grade Dr. Meza TURBT Dr. 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, 06/30 HG Superficial September 2021 TURBT and gemcitabine installation Code(s): C67.9 - Malignant neoplasm of bladder, unspecified Qualifiers: Bladder location: unspecified site Qualified Code(s): C67.9 - Malignant neoplasm of bladder, unspecified Plan: Continue to follow-up with urology (6) Obesity: Code(s): E66.9 - Obesity, unspecified Qualifiers: Obesity type: due to excess calories Obesity classification: adult class 3 (BMI >= 40) Serious obesity comorbidity presence: with serious comorbidity Body mass index: BMI 40.0-44.9 Qualified Code(s): E66.01 - Morbid (severe) obesity due to excess calories; Z68.41 - Body mass index [BMI]40.0-44.9, adult Plan: Diet and exercise (7) GERD (gastroesophageal reflux disease): Code(s): K21.9 - Gastro-esophageal reflux disease without esophagitis Qualifiers: Esophagitis presence: without esophagitis Qualified Code(s): K21.9 - Gastro-esophageal reflux disease without esophagitis Plan: Avoid the foods that causes that usually spicy foods, tomato products, juices, coffee, soda and foods that your sensitive to. After eating do not lie down, allow 3-4 hours before in lie down. And keep the head of bed above 30 degrees to avoid the acid from going up. (8) Hypercholesterolemia: Code(s): E78.00 - Pure hypercholesterolemia, unspecified Plan: Avoid fried foods, chicken skin, eggs, butter margarine, pastries and meat. Be it pork or beef they have a lot of cholesterol on simvastatin 20 mg at bedtime. LDL goal of less than 100 and triglyceride of less than 150. (9) Impacted cerumen of right ear: Code(s): H61.21 - Impacted cerumen, right ear Plan: scoop used TM intact , no irrigation Quality Reporting (2019) Depression/Bipolar (159/160/161/177) PHQ-9: Total score: 1 Coding Level of Care Code Medicare Subsequent (G0439) Diagnoses Medicare annual wellness visit, subsequent Z00.00 Paroxysmal atrial fibrillation I48.0 Invasive ductal carcinoma of left breast C50.912 Essential hypertension I10 Malignant neoplasm of urinary bladder, unspecified site C67.9 Bladder location: unspecified site Class 3 severe obesity due to excess calories with serious comorbidity and body mass index (BMI) of 40.0 to 44.9 in adult E66.01; Z68.41 Obesity type: due to excess calories Obesity classification: adult class 3 (BMI >= 40) Serious obesity comorbidity presence: with serious comorbidity Body mass index: BMI 40.0-44.9 Gastroesophageal reflux disease without esophagitis K21.9 Esophagitis presence: without esophagitis Hypercholesterolemia E78.00 Impacted cerumen of right ear H61.21 CPT Codes Office Procedure - CPT: 09187-Std Wax Removal by Spoon/Curette ([id number])
[2024-01-11 10:10] VITALS: BP 112/64; PULSE 77; O2SAT 95; BMI 30.8
== END 2024-01-11 11:29 | disposition home or self-care (01) ==
PROVIDERS: PCP Internal Medicine; Visit Provider Internal Medicine
DX: Z00.00 Encounter for general adult medical examination without abnormal findings (principal); I48.0 Paroxysmal atrial fibrillation; C50.912 Malignant neoplasm of unspecified site of left female breast; C67.9 Malignant neoplasm of bladder, unspecified; E66.01 Morbid (severe) obesity due to excess calories; Z68.41 Body mass index [BMI] 40.0-44.9, adult; H61.21 Impacted cerumen, right ear; I10 Essential (primary) hypertension; K21.9 Gastro-esophageal reflux disease without esophagitis; E78.00 Pure hypercholesterolemia, unspecified

== ENCOUNTER → 2024-01-11 10:01 | Outpatient (BNVA) | payer MEDICARE, SELFPAY | PROVIDERS: PCP Internal Medicine; Visit Provider Internal Medicine | DX: Z00.01 Encounter for general adult medical examination with abnormal findings (principal); H61.21 Impacted cerumen, right ear; I48.0 Paroxysmal atrial fibrillation; I10 Essential (primary) hypertension; C67.9 Malignant neoplasm of bladder, unspecified; E66.01 Morbid (severe) obesity due to excess calories; Z68.41 Body mass index [BMI] 40.0-44.9, adult; K21.9 Gastro-esophageal reflux disease without esophagitis; E78.00 Pure hypercholesterolemia, unspecified | CPT/HCPCS: 69210 ==

== ENCOUNTER 2024-01-26 12:51 | Outpatient (AMB) | payer MEDICARE, SELFPAY ==
--- NOTE | 2024-01-26 12:55 | A.OFFVIS_ITS ---
Intake Visit Reasons: Cystoscopy(Bladder Ca) Intake Note: Patient is Present for Cystoscopy Urology Med: None Antibiotic Allergy: None Blood Thinner: Aspirin Last Urine Cytology 10/2022 Unable to provide urine sample today patient denies any burning upon urination URO- G Disposable Cystoscope lot: [id number] exp:07/21/2026 Brazing Machine Tender Required: No Facilities Specialist: Facilities Specialist Present (Beth) Accompanied by: Sister Allergies No Known Allergies [No Known Allergies*] Allergy (Verified 01/26/24 13:01) HPI Comments Details: Gricelda is a pleasant female. She is a patient of Dr. Naik. She seen for the following urologic conditions - bladder cancer high-grade superficial Six-month cystoscopy from treatment Accompanied by sister for cystoscopy today Treatment effect No new lesions Interval surveillance Bladder cancer initial diagnosis February 2019 - last TURBT September 2021 high-grade Bladder cancer diagnosed TURBT December 2019 - high-grade noninvasive Further follow-up was postponed secondary to COVID Bladder procedures - December 2019 TURBT - June 2020 TURBT high-grade noninvasive - January 2021 TURBT high-grade noninvasive - 10/01 TURBT high-grade noninvasive - 08/03 TURBT low-grade multifocal Cystoscopy - 08/02 NAD, 03/04 NAD Adjuvant therapy - June 2020 - induction gemcitabine, February 2021 repeat induction gemcitabine - Boost 01/01 gemcitabine, 05/04 gemcitabine, 10/02 gemcitabine , 08/03 induction with mitomycin-C and cytarabine Cytology - 01/01 NAD, 05/04 NAD PFSH Medical History Complicated urinary tract infection Dysphagia Screening for breast cancer Abnormal ultrasound of breast Abnormal mammogram of left breast Multiple falls Physical deconditioning Breast cancer, left Breast cancer Chronic renal insufficiency HTN (hypertension) Cardiac pacemaker in situ AV block Leg edema Screening for diabetes mellitus On beta jake at home Arthritis Vertigo MARIELA (obstructive sleep apnea) Sick sinus syndrome Peripheral vascular disease Menieres disease Urinary bladder cancer Obesity Gout GERD (gastroesophageal reflux disease) Hypercholesterolemia Surgical History History of lumpectomy of left breast (03/10/23) History of esophagogastroduodenoscopy (EGD) S/P cardiac pacemaker procedure Hx of colonoscopy History of cystoscopy S/P MARION-BSO (total abdominal hysterectomy and bilateral salpingo-oophorectomy) History of cataract surgery History of knee replacement History of tonsillectomy History of appendectomy History of cholecystectomy Family History Father Stroke Mother Heart disease Social History Household Members: None Housing: Apartment Are you a primary career development counselor to a significant other at home: No Do you presently have visiting nurse or other home services: No Alcohol intake: current Alcohol intake frequency: does not drink Patient Tobacco Use Status: Former Tobacco user Tobacco use type: Cigarette e-Cigarette/Vaping Use: Never Used Second Hand Smoke Exposure: No service: No Current occupational status: retired Cognitive needs: No Hearing needs: Yes Vision needs: Yes Review of Systems Const Denies chills and Denies fever(s) Card Reports no additional complaints and Denies syncope Resp Denies cough GI Denies abdominal pain and Denies heartburn Reports as per HPI and Denies change in libido Neuro Denies syncope Psych Denies change in libido Endo Denies change in libido Physical Exam Const General: cooperative, healthy appearing, comfortable and no acute distress Orientation/consciousness: patient oriented x3 HEENT Face and sinus: Yes normal facial exam Mouth: moist mucous membranes Neck Neck: Yes normal visual inspection, Yes full ROM and Yes trachea midline Chest Chest palpation & inspection: normal inspection of the chest Resp Effort & Inspection: normal respiratory effort, able to speak in complete sentences and no respiratory distress GI Inspection: Yes normal to inspection Back/Spine/Pelvis Cervical Spine: normal cervical lordosis Thoracic/Lumbar Spine: thoracic and lumbar spine normal to inspection Skin General skin exam: no rashes or lesions noted Neuro General: patient oriented x3, gait normal, tone normal and moves all extremities Extrem General: Yes normal to inspection and Yes capillary refill normal Office Procedures Cystoscopy Consent Discussed risk and benefit or proposed procedure with the patient. Information consent for procedure given to the patient. Discussed technical aspects, risks, benefits and alternatives in full. Addressed all of the patient's questions and concerns regarding the procedure. The patient demonstrated knowledge and understanding. They wish to proceed with this procedure. Preparation The patient was prepped in the usual manner. A senior graphic designer was present and in the room. Genitalia was prepped with betadine solution in a sterile manner. Lidocaine Jelly 2% was placed into the urethra and 16Fr flexible Olympus cystoscope was inserted into the meatus after adequate lubrication. Procedure Meatus normal position Urethra normal Bladder examination with retroflexion of cystoscope Bladder Orifices normal shape and position Trigone normal Bladder Capacity normal Trabeculations grade 1 Cellule Formation none Diverticulum Formation none Mucosal Erythema treatment effect with prior tumor scarring Bladder Tumor none [id number] DISPOSABLE SCOPE URO-G FLEXIBLE SCOPE Procedure code (CPT) selection complete Office Meds lidocaine HCl 2 % mucosal jelly in applicator Performing Provider: Francisco Dowell MD Performing Location: [facility] [place] [facility] Administered by: Francisco Dowell MD on 01/26/24 13:29 Dose Route Admin Location Dispensed Lot Number Expiration Date NDC Field Machinist 10 mL intra-urethral 10 mL nitrofurantoin monohydrate/macrocrystals 100 mg capsule Performing Provider: Francisco Dowell MD Performing Location: [facility] [place] [facility] Administered by: Francisco Dowell MD on 01/26/24 13:29 Dose Route Admin Location Dispensed Lot Number Expiration Date NDC Field Machinist 100 mg PO 1 cap naproxen 500 mg tablet Performing Provider: Francisco Dowell MD Performing Location: [facility] [place] [facility] Administered by: Francisco Dowell MD on 01/26/24 13:29 Dose Route Admin Location Dispensed Lot Number Expiration Date NDC Field Machinist 500 mg PO 1 tab Assessment & Plan Assessment & Plan (1) Urinary bladder cancer: Comment: TURBT superficial high-grade Dr. Meza TURBT Dr. 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, 06/30 HG Superficial September 2021 TURBT and gemcitabine installation Code(s): C67.9 - Malignant neoplasm of bladder, unspecified Category: Medical Qualifiers: Bladder location: unspecified site Qualified Code(s): C67.9 - Malignant neoplasm of bladder, unspecified Plan Three-month follow-up check cystoscopy Orders: Orders AMB Cystoscopy Today C67.9 - Malignant neoplasm of bladder, unspecified AMB Urinalysis Automated Today Z13.9 - Encounter for screening, unspecified Patient Instructions: Imaging studies, laboratory and physical exam results were discussed and reviewed in detail. No major barriers to patient understanding were identified. An opportunity to ask questions regarding the treatment plan was provided. All questions were answered. The patient expressed understanding and agreement with the above treatment plan. The patient is aware they should contact our office by phone for worsening of their current condition or the appearance of new urologic symptoms. Compliance is encouraged with any medications and followup testing that is ordered. It is a privilege to participate in the urologic care of your patient. If you h ave any questions or concerns regarding treatment for the above conditions, or other urologic issues, please do not hesitate to contact me. The office telephone contact is [phone]. This note is constructed using voice recognition software. While every effort has been made to ensure accuracy manager activities errors may have been included. Yours sincerely, Dr Francisco Dowell MD, [facility] - Urology Providers of Expert, Compassionate Care for the Genitourinary System Coding Level of Care Code Est Pt Level 3 (61692) Diagnoses Malignant neoplasm of urinary bladder, unspecified site C67.9 Bladder location: unspecified site CPT Codes Cystoscopy - CPT: 85186-[id number] ([id number])
== END 2024-01-26 14:10 | disposition home or self-care (01) ==
LOC: HO.HUSH 12:51
PROVIDERS: PCP Internal Medicine; Visit Provider Urology
DX: C67.9 Malignant neoplasm of bladder, unspecified (principal)
CPT/HCPCS: 52000; 99213

== ENCOUNTER → 2024-01-26 12:51 | Outpatient (BNVA) | payer MEDICARE, SELFPAY | PROVIDERS: PCP Internal Medicine; Visit Provider Urology | DX: C67.9 Malignant neoplasm of bladder, unspecified (principal) | CPT/HCPCS: 52000; 99212 ==

== ENCOUNTER 2024-02-08 12:52 | Outpatient (AMB) | payer MEDICARE, SELFPAY ==
--- NOTE | 2024-02-08 13:15 | MHC.OFFVIS ---
Vital Signs 02/08/24 13:16 Height 5 ft 1 in Weight 164 lb 6 oz BMI 31.1 BP 135/69 Blood Pressure Location Lt brachial Position Sitting Pulse 86 Intake Visit Reasons: 6 month breast exam Intake Note: Patient is seen in office for 6 month follow up visit, breast exam. Pt c/o: left side aches, denies any other concerns or changes, has upcoming mm sched for 03/16/24 mm: 02/13/24 DUE Underwriting Technician Required: No Distributor Sales Manager: Distributor Sales Manager Present Accompanied by: Family/Other Allergies No Known Allergies [No Known Allergies*] Allergy (Verified 02/08/24 13:17) Medication List - Last Reconciled 02/08/24 by Lalo Correia MD amlodipine 5 mg PO DAILY aspirin (Adult Low Dose Aspirin) 81 mg PO DAILY cholecalciferol (vitamin D3) 25 mcg PO DAILY coenzyme Q10 (Co Q-10) 100 mg PO DAILY cyanocobalamin (vitamin B-12) 1,000 mcg PO DAILY gabapentin 300 mg PO BEDTIME meclizine 25 mg PO DAILY metoprolol succinate ER 50 mg PO DAILY 90 days nystatin 1 appl topical BID omeprazole 20 mg PO DAILY polyethylene glycol 3350 (Miralax) 17 grams PO DAILY PRN propylene glycol 0.6% (Systane Balance) 1 drp ophthalmic (eye) DAILY PRN simvastatin 20 mg PO BEDTIME HPI Comments Details: 88-year-old female patient returning for follow-up breast examination. She was found to have a suspicious density in the left breast at the upper outer quadrant subsequently underwent ultrasound-guided biopsy at the [facility] on 10/12/2022. 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 She underwent a left breast lumpectomy with localizer, sentinel node biopsy using Mag trace on 03/10/2023. Pathology revealed: Invasive ductal carcinoma, MSBR grade 3, 2.5 cm in size; negative margins (1.5 mm to anterior). - Biopsy site changes. - pT2 N0(sn)(i-) AJCC Stage 8th ed. B. Soft tissue, axillary contents: Fibrovascular and adipose tissue within normal limits; no lymph nodes identified. C. Lymph node, sentinel #1, excision: One lymph node negative for metastatic carcinoma. D. Lymph node, sentinel #2, excision: Fibrovascular and adipose tissue within normal limits; no lymph nodes identified. Ancillary studies: ER positive, OR positive, HER2 negative, high proliferation Oncotype DX recurrence score is 14 with a 4% 9 year distant recurrence risk and absolute benefit of chemotherapy at less than 1%. She denies a prior history of breast problems or breast surgery. She denies any ongoing breast symptoms at this time. Her family history is positive for a sister having breast cancer. She is G0. She was evaluated by Medical Oncology and letrozole offered but declined by the patient. In addition radiation therapy was declined. She continues to be followed by Dr. Smith. [facility] Medical History Complicated urinary tract infection Dysphagia Screening for breast cancer Abnormal ultrasound of breast Abnormal mammogram of left breast Multiple falls Physical deconditioning Breast cancer, left Breast cancer Chronic renal insufficiency HTN (hypertension) Cardiac pacemaker in situ AV block Leg edema Screening for diabetes mellitus On beta jake at home Arthritis Vertigo MARIELA (obstructive sleep apnea) Sick sinus syndrome Peripheral vascular disease Menieres disease Urinary bladder cancer Obesity Gout GERD (gastroesophageal reflux disease) Hypercholesterolemia Surgical History History of lumpectomy of left breast (03/10/23) History of esophagogastroduodenoscopy (EGD) S/P cardiac pacemaker procedure Hx of colonoscopy History of cystoscopy S/P MARION-BSO (total abdominal hysterectomy and bilateral salpingo-oophorectomy) History of cataract surgery History of knee replacement History of tonsillectomy History of appendectomy History of cholecystectomy Family History Father Stroke Mother Heart disease Social History Household Members: None Housing: Apartment Are you a primary health care recruiter to a significant other at home: No Do you presently have visiting nurse or other home services: No Alcohol intake: current Alcohol intake frequency: does not drink Patient Tobacco Use Status: Former Tobacco user Tobacco use type: Cigarette e-Cigarette/Vaping Use: Never Used Second Hand Smoke Exposure: No service: No Current occupational status: retired Cognitive needs: No Hearing needs: Yes Vision needs: Yes Review of Systems Const All systems reviewed & are unremarkable except as noted in HPI and below Denies chills, Denies fever(s), Denies headache(s), Denies poor appetite and Denies weakness ENT Denies headache(s) Card Denies chest pain, Denies irregular heart rhythm, Denies palpitations and Denies dyspnea Resp Denies cough, Denies excessive phlegm production and Denies dyspnea GI Denies abdominal pain, Denies bloating, Denies change in bowel habits, Denies constipation, Denies heartburn, Denies diarrhea, Denies nausea and Denies vomiting Details: History of bladder CA Denies urinary frequency and Denies nipple discharge Musc Denies back pain, Denies muscle weakness and Denies numbness Skin/Breast Denies breast swelling, Denies breast skin changes, Denies breast pain, Denies breast mass, Denies changing lesions, Denies nipple discharge and Denies unusual bruising Neuro Denies headache(s), Denies numbness, Denies paresthesias and Denies weakness Psych Denies anxiety and Denies depression Endo Denies palpitations Arsenio/Lymph Denies lymphadenopathy Physical Exam Const General: comfortable Nutritional Appearance: well nourished Orientation/consciousness: patient oriented x3 Chest Other: Well-healed incision in the left axilla and left breast. There is residual seroma in the left axilla which has not changed significantly since last examination and in fact may be slightly smaller. No other new palpable masses appreciated in the left breast. Right breast reveals no new skin change, nipple discharge, palpable mass or enlarged lymph nodes. Resp Effort & Inspection: normal respiratory effort Skin General skin exam: no rashes or lesions noted Neuro Other: Mobility Assessment: 1. 3 meter assessment time (seconds) 8 2. Gait observations: slow tentative pace General: patient oriented x3 Assessment & Plan Assessment & Plan (1) Invasive ductal carcinoma of left breast: Comment: Left breast lumpectomy February 2023 Code(s): C50.912 - Malignant neoplasm of unspecified site of left female breast Category: Medical Plan 88-year-old female presenting with a left breast carcinoma status post lumpectomy LOCalizer and sentinel node biopsy. She is being evaluated by Medical Oncology (Luis) for possible adjuvant antiestrogen therapy but has subsequently declined any further therapy including ready to be. She continues to have a small seroma but I have elected to observe it as this will probably. Her wounds are clean, dry and intact. There is a small seroma residual in the left axilla. This will continue to be observed with no further aspiration. She will follow-up in 6 months for follow-up examination. She is now due for a follow-up yearly mammogram which has been scheduled for March 2024. Orders: Orders MM diagnostic mammo BI 02/15/24 C50.912 - Malignant neoplasm of unspecified site of left female breast Coding Level of Care Code Est Pt Level 3 (40295) Complex EM visit Add On G2211 Diagnoses Invasive ductal carcinoma of left breast C50.912
[2024-02-08 13:16] VITALS: BP 135/69; PULSE 86; BMI 31.1
== END 2024-02-08 13:18 | disposition home or self-care (01) ==
LOC: HO.HGS 12:52
PROVIDERS: PCP Internal Medicine; Visit Provider Surgery
DX: C50.912 Malignant neoplasm of unspecified site of left female breast (principal)
CPT/HCPCS: 99213; G2211

== ENCOUNTER → 2024-02-08 12:52 | Outpatient (BNVA) | payer MEDICARE, SELFPAY | PROVIDERS: PCP Internal Medicine; Visit Provider Surgery | DX: C50.912 Malignant neoplasm of unspecified site of left female breast (principal) | CPT/HCPCS: 99212 ==

== ENCOUNTER 2024-03-06 13:40 | Outpatient (REF) | payer MEDICARE, SELFPAY ==
--- NOTE | ~2024-03-06 | MM_ITS ---
EXAMINATION: MM DIAGNOSTIC DIGITAL BREAST TOMOSYNTHESIS, BILATERAL US BREAST LIMITED, LEFT MAMMOGRAPHY: CLINICAL INFORMATION: -Postop year 1 left breast upper outer lumpectomy for grade 3 IDC 03/10/2023. Due for yearly. COMPARISON: Surgical specimen 03/10/2023. Ultrasound-guided core biopsy left breast 02/12/2023. 02/01/2023 ultrasound and mammography, 01/19/2023 mammography, 06/26/2019, and dating back to 2011. TECHNIQUE: Digital breast tomosynthesis is performed in both the craniocaudal and mediolateral oblique views along with computer-aided detection (CAD). Synthesized 2D images are generated from the tomosynthesis. FINDINGS: There are scattered areas of fibroglandular density (ACR BI-RADS breast composition Category b). In the left breast, immediately subjacent to the pacemaker generator, there is a large oval dense circumscribed mass in the left axillary region measuring an estimated 4.8 x 3.4 cm. This will be evaluated with ultrasound. Otherwise, there are expected post therapeutic changes in the left breast upper outer quadrant, with generalized trabecular skin thickening from radiation as well as postoperative scarring in the upper outer quadrant. There is no clear evidence of recurrent disease at the operative site. There are no suspicious abnormalities in the right breast. ULTRASOUND: CLINICAL INFORMATION: As above. COMPARISON: None relevant. TECHNIQUE: Targeted sonographic evaluation left axilla was performed using a high frequency linear transducer. Selected archived documentation. FINDINGS: LEFT AXILLA: There are 2 prominent seromas in the left axillary region, the larger is closer to the nipple, 1-2 o'clock axis, 10 cm from the nipple, measuring approximately 4.5 x 2.7 x 2.9 cm . The second is slightly more posterior, away from the nipple, measuring approximately 3.3 x 2.4 x 3.1 cm. These findings are benign and represent postoperative seromas. There are no suspicious findings. MM/MM tomosynthesis diagnostic BI IMPRESSION: 1. No findings suspicious for malignancy in either breast. 2. Expected post treatment-related changes left breast. 3. 2 oval circumscribed fluid collections in the left axilla, consistent with seromas, the larger measuring up to 4.5 cm. These are benign. Clinical management follow-up recommended. 4. Otherwise recommend continued one-year follow-up postop protocol for year 2. OVERALL ASSESSMENT: Mammography: BI-RADS 2 - Benign Findings Ultrasound: BI-RADS 2 - Benign Findings RECOMMENDATION: 1 year F/U This patient's information was entered into a reminder system with a target due date for their next mammogram. Electronically signed by: Allan Wick MD 03/06/2024 03:41 PM KENY PURI Workstation: [id number]
== END 2024-03-06 13:41 | disposition home or self-care (01) ==
LOC: HO.MAMMO 13:40
PROVIDERS: PCP Internal Medicine; Visit Provider Surgery
DX: N63.21 Unspecified lump in the left breast, upper outer quadrant (principal); Z85.3 Personal history of malignant neoplasm of breast
CPT/HCPCS: 76642; 77062; 77066

== ENCOUNTER → 2024-03-06 14:00 | Outpatient (BNV) | payer MEDICARE, SELFPAY | PROVIDERS: PCP Internal Medicine; Visit Provider Radiology Diagnostic Radiology | DX: R92.8 Other abnormal and inconclusive findings on diagnostic imaging of breast (principal) | CPT/HCPCS: 76642; 77066; G0279 ==

== ENCOUNTER 2024-03-17 15:45 | Emergency (ER) | payer MEDICARE, SELFPAY ==
--- NOTE | ~2024-03-17 | CT_ITS ---
EXAMINATION: HEAD CT WITHOUT CONTRAST MAXILLOFACIAL CT WITHOUT CONTRAST CERVICAL SPINE CT WITHOUT CONTRAST CLINICAL INFORMATION: Fall, head strike COMPARISON: CT head 12/24/2023 TECHNIQUE: Contiguous axial imaging of the head was performed without the administration of IV contrast. Axial multidetector volumetric images were also performed through the facial bones without contrast from the frontal sinuses through the mandible. Multiplanar reconstructed images in coronal and sagittal orientations were submitted. DOSE: 1099 mGy-cm FINDINGS: HEAD: There is no evidence of acute intracranial hemorrhage or edematous large vessel territorial infarction. No abnormal mass effect or midline shift is seen. Kwon to white matter differentiation is well preserved. No abnormal extra-axial fluid collections are identified. Commensurate prominence of the ventricles and sulci is compatible with generalized parenchymal volume loss. There is patchy periventricular and subcortical white matter hypoattenuation, most likely representing microangiopathic disease. Soft tissue swelling and scalp hematoma in the frontal region. No acute calvarial fracture.. Paranasal sinuses and mastoid air cells are well-aerated. MAXILLOFACIAL: The mandible, maxilla, pterygoid plates, nasal bones, zygomatic arches, paranasal sinus holder, and bony orbits are intact. No acute osseous abnormality within the maxillofacial region. The paranasal sinuses and mastoid air cells remain well-aerated. Cervical Spine: The atlantooccipital and atlantoaxial articulations are maintained. No evidence of acute fracture or acute subluxation. Vertebral body heights are maintained. Mild anterolisthesis of C4 on C5 and C7 on T1. Multilevel moderate-severe cervical spondylosis. Multilevel facet degeneration. Posterior osteophytes at C5-6 protruding into the central canal. No prevertebral soft tissue swelling. 3 cm hypodense lesion in the right thyroid lobe. Lung apices are clear. CT/CT head/brain wo IV con IMPRESSION: 1. No CT evidence of acute intracranial hemorrhage or edematous territorial infarction.. 2. No CT evidence of acute maxillofacial fracture. 3. No CT evidence of acute cervical spine fracture or malalignment. 4. Moderate-severe cervical spondylosis. 5. Hypodense right thyroid lesion measuring 3 cm. Clinically correlate, correlate with prior imaging. If this has not been previously evaluated, recommend ultrasound evaluation. Electronically signed by: Roberto Ponce MD 03/17/2024 06:36 PM EST [facility]
--- NOTE | 2024-03-17 15:54 | ED_ITS ---
HPI - Fall General Chief Complaint: Skin/Abscess/Foreign Body Stated Complaint: FALL W/LACERATIONS, SWOLLEN EYE PER EMS Time Seen by Provider: 03/17/24 15:53 Source: patient and EMS Mode of arrival: EMS Limitations: no limitations History of Present Illness ED Provider: PRIYA WHITE PA-C HPI Narrative: 88-year-old female with pmhx significant for chronic renal insufficiency, hypertension, paroxysmal atrial fibrillation, pacemaker, leg edema, vertigo, MARIELA, peripheral vascular disease, bladder cancer, obesity, GERD, hypercholesterolemia, GOUT presents to the ED today via EMS from home for evaluation following a 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 She states that she was walking along the side of her house when her foot stepped onto an uneven surface of the walkway, causing her to fall forward and strike her head on an outdoor gas meter. She denies LOC. She is not anticoagulated however does take an 81 mg aspirin daily. She states she was unable to stand after the fall due to bilateral artificial knees. Her sister and nephew were both home who then called EMS. She states she was not on the ground long before they arrived. At present she endorses a slight headache. She has two scalp lacerations that were dressed by EMS 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 She denies any symptoms preceding the fall (headache, dizziness, chest pain, palpitations). She is unsure of her last tetanus vaccination however states she thinks her PCP recently updated this. Related Data Home Medications ?Medication ?Instructions ?Recorded ?Confirmed aspirin 81 mg tablet,delayed 81 mg PO DAILY 03/11/20 02/08/24 release (Adult Low Dose Aspirin) cholecalciferol (vitamin D3) 25 25 mcg PO DAILY 03/11/20 02/08/24 mcg (1,000 unit) capsule coenzyme Q10 100 mg capsule (Co 100 mg PO DAILY 03/11/20 02/08/24 Q-10) polyethylene glycol 3350 17 gram 17 g PO DAILY PRN Constipation 02/24/23 02/08/24 oral powder packet (Miralax) propylene glycol 0.6 % eye drops 1 drp ophthalmic (eye) DAILY PRN 02/24/23 02/08/24 (Systane Balance) Dry Eyes Previous Rx's ?Medication ?Instructions ?Recorded gabapentin 300 mg capsule 300 mg PO BEDTIME #90 caps 04/14/23 meclizine 25 mg tablet 25 mg PO DAILY #30 tabs 05/05/23 cyanocobalamin (vitamin B-12) 1,000 mcg PO DAILY #90 caps 05/12/23 1,000 mcg capsule omeprazole 20 mg capsule,delayed 20 mg PO DAILY #90 caps 07/22/23 release amlodipine 5 mg tablet 5 mg PO DAILY #90 tabs 07/23/23 nystatin 100,000 unit/gram topical 1 appl topical BID #30 grams 07/28/23 powder metoprolol succinate 50 mg 50 mg PO DAILY 90 days #90 tabs 10/06/23 tablet,extended release 24 hr simvastatin 20 mg tablet 20 mg PO BEDTIME #90 tabs 10/15/23 Allergies Allergy/AdvReac Type Severity Reaction Status Date / Time No Known Allergies Allergy Verified 03/17/24 15:58 [No Known Allergies*] Review of Systems Review of Systems: Constitutional: No fever, chills, fatigue, night sweats, weight changes ENT/Mouth: No ear pain, hearing loss, nasal congestion, sinus pain, rhinorrhea, sore throat Eyes: No eye pain, swelling, redness, vision changes, discharge Cardio: No chest pain, palpitations, ROB, orthopnea, peripheral edema Pulm: No SOB, cough, sputum, wheezing, dyspnea, hemoptysis GI: No nausea, vomiting, hematemesis, abdominal pain, diarrhea, constipation, hematochezia, melena : No irregular bleeding, dysuria, frequency, urgency, hesitancy, hematuria, flank pain, urinary flow changes, urinary incontinence or retention MSK: No back pain, neck pain, joint pain, myalgias Skin: No lesions, rashes, +scalp lacerations Neuro: No weakness, numbness, paresthesias, LOC, dizziness, +headache Psych: No anxiety/panic, depression, SI/HI, AH/VH All other systems reviewed and are negative. [facility] Past Medical History Attestation statement: The following information was validated with the patient. Source: old records reviewed and nursing notes reviewed Medical History Complicated urinary tract infection Dysphagia Screening for breast cancer Abnormal ultrasound of breast Abnormal mammogram of left breast Multiple falls Physical deconditioning Breast cancer, left Breast cancer Chronic renal insufficiency HTN (hypertension) Cardiac pacemaker in situ AV block Leg edema Screening for diabetes mellitus On beta jake at home Arthritis Vertigo MARIELA (obstructive sleep apnea) Sick sinus syndrome Peripheral vascular disease Menieres disease Urinary bladder cancer Obesity Gout GERD (gastroesophageal reflux disease) Hypercholesterolemia Surgical History History of lumpectomy of left breast (03/10/23) History of esophagogastroduodenoscopy (EGD) S/P cardiac pacemaker procedure Hx of colonoscopy History of cystoscopy S/P MARION-BSO (total abdominal hysterectomy and bilateral salpingo-oophorectomy) History of cataract surgery History of knee replacement History of tonsillectomy History of appendectomy History of cholecystectomy Family History Family History Father Stroke Mother Heart disease Social History Social History Household Members: None Housing: Apartment Are you a primary progressive care unit registered nurse to a significant other at home: No Do you presently have visiting nurse or other home services: No Alcohol intake: current Alcohol intake frequency: does not drink Patient Tobacco Use Status: Former Tobacco user Tobacco use type: Cigarette e-Cigarette/Vaping Use: Never Used Second Hand Smoke Exposure: No Use of substances other than those prescribed or required for medical reasons: No Advance Directives: Yes Advance Directives on File: Yes Advance Directives Date on File: 09/15/21 service: No Current occupational status: retired Cognitive needs: No Hearing needs: Yes Vision needs: Yes Physical Exam Vital Signs: Vital Signs: Last Vital Signs Temp 97.4 F 03/17/24 17:57 Pulse 61 03/17/24 17:57 Resp 4 L 03/17/24 17:57 BP 122/52 L 03/17/24 17:57 Pulse Ox 95 03/17/24 17:57 O2 Del Method Room Air 03/17/24 17:57 BMI result Body Mass Index 30.4 vital signs stable General: Well appearing, in no acute distress. Skin: Warm, dry, intact. No rashes or lesions. Head: +small scalp hematoma noted to left forehead with overlying 1 cm linear superficial laceration. Bleeding controlled. No palpable skull fracture. There is also a 2cm linear scalp laceration noted to left parietal region just behind her left ear. Bleeding controlled. No palpable skull fracture or hematoma. EENT: Hearing is intact b/l. Conjunctiva clear. PERRLA. Left periorbital ecchymoses noted. EOMs intact without entrapment or pain. Moist mucous membranes.? Neck: Full ROM intact to C-spine Cardiac: Chest wall symmetric. RRR Lungs: Normal respiratory effort without accessory muscle use. CTA bilaterally? Abdomen: Soft, non-tender, non-distended. No rebound tenderness or guarding. Positive BS x4. Back: No midline spinous or paraspinal tenderness. No step off deformity. Ext: Upper and lower extremities atraumatic, without tenderness, deformity, swelling or erythema Neuro: AOx3. Normal speech. NIH 0. Strength 5/5 intact throughout. Normal [id number], [id number].Ambulating with steady gait. Psych: Appropriate mood and affect. Responds appropriately to questions. NIH Stroke Scale Internal: Initial- Upon Arrival Time: 16:05 Level of Consciousness: Alert Level of Consciousness Questions: Answers both questions correctly Level of Consciousness Commands: Performs both tasks correctly Best Gaze: Normal Visual: No visual loss Facial Palsy: Normal Motor Arm (Right): No drift Motor Arm (Left): No drift Motor Leg (Right): No drift Motor Leg (Left): No drift Limb Ataxia: Absent Sensory: Normal Best Language: No aphasia Dysarthia: Normal Extinction and Inattention: No abnormality Score: 0 Course Course Course Narrative: 1605 -- NIH 0. > imaging ordered of head/ c spine/ facial bones. patient does not have midline cervical spinous tenderness, denies neck pain, and continues to decline c collar. > tylenol ordered for mild headache. will continue to monitor. > on chart review, tdap updated by PCP in august -- forehead laceration and scalp lacerations repaired, see procedure note. patient tolerated procedure well. pressure dressing placed to forehead hematoma. > CT scans pending. anticipate discharge home. 1846 -- CT head/ brain/ c spine/ facial bones without acute fracture or bleed. There is a small frontal hematoma consistent with exam findings. there is also an incidental finding of lesion to right thyroid lobe. > I discussed all work up results with patient. will discharge her home with concussion precautions. advised to return to ED or PCP in 3-5 days for suture and staple removal. advised that she follow up with pcp for dedicated thyroid ultrasound. Patient has remained stable throughout ED visit today. Discussed worrisome signs and symptoms and when to return to the ED. All questions answered at this time. Patient is agreeable with disposition and stable for discharge. Her nephew and sister will be driving her home. Medications Administered Discontinued Medications Generic Name Dose Route Start Last Admin Trade Name Dale PRN Reason Stop Dose Admin Acetaminophen 650 mg 03/17/24 16:07 03/17/24 16:20 Acetaminophen 325 Mg Tablet PO 03/17/24 16:08 650 mg ONCE ONE Administration Lidocaine HCl 5 ml 03/17/24 16:10 03/17/24 16:21 Lidocaine Hcl 1 % Mpf 5 Ml Vial INFILTRATI 03/17/24 16:11 5 ml ONCE ONE Administration Lidocaine HCl 5 ml 03/17/24 16:11 03/17/24 16:21 Lidocaine Hcl 1 % Mpf 5 Ml Vial INFILTRATI 03/17/24 16:12 5 ml ONCE ONE Administration Procedures Laceration Laceration 1: Site: face Side (If applicable): left Size (cm): 1 Description: linear Depth: simple, single layer Local Anesthetic: lidocaine 1% Amount of anesthesia used (mL): 5 Pre-repair: wound explored and irrigated extensively Skin layer closed with: nylon Size (cm): 5-0 Number of sutures: 3 Technique: simple, interrupted Laceration 2: Site: scalp Side (If applicable): left Size (cm): 1 Description: linear Depth: simple, single layer Local Anesthetic: lidocaine 1% Amount of anesthesia used (mL): 5 Pre-repair: wound explored and irrigated extensively Skin layer closed with: other (lucie) Number of sutures: 2 Medical Decision Making Medical Decision Making MDM Narrative: 88-year-old female with past medical history significant for chronic renal insufficiency, hypertension, paroxysmal atrial fibrillation, pacemaker, leg edema, vertigo, MARIELA, peripheral vascular disease, bladder cancer, obesity, GERD, hypercholesterolemia, GOUT presents to the ED today via EMS from home for evaluation following a 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 NIH 0. Exam nonfocal. Cerebellum intact. there is a small scalp hematoma noted to left forehead with overlying 1 cm linear superficial laceration. Bleeding controlled. There is also a 2cm linear scalp laceration noted to left parietal region just behind her left ear. Bleeding controlled. No palpable skull fracture. eom's intact. Differential diagnosis includes scalp hematoma, superficial laceration, abrasion, skull fracture, ICH, CVA/TIA Plan for imaging, pain control, laceration repair, re-evaluation. Differential Diagnosis Differential Diagnoses: The differential diagnosis associated with the presentation includes as above. Admission/Observation Consideration of admission/observation: Escalation of care including admission/observation considered Admission considered on presentation Independent Interpretation I performed an independent interpretation of an: CT Scan Interpretation: CT head/ brain without brain bleed or skull fracture CT cervical spine without fracture or subluxation CT facial bones without fracture Radiology Impression Discussion of test interpretation with radiology: I have reviewed the radiologist's reading. Radiologist Impression: EXAMINATION: HEAD CT WITHOUT CONTRAST MAXILLOFACIAL CT WITHOUT CONTRAST CERVICAL SPINE CT WITHOUT CONTRAST CLINICAL INFORMATION: Fall, head strike COMPARISON: CT head 12/24/2023 TECHNIQUE: Contiguous axial imaging of the head was performed without the administration of IV contrast. Axial multidetector volumetric images were also performed through the facial bones without contrast from the frontal sinuses through the mandible. Multiplanar reconstructed images in coronal and sagittal orientations were submitted. DOSE: 1099 mGy-cm FINDINGS: HEAD: There is no evidence of acute intracranial hemorrhage or edematous large vessel territorial infarction. No abnormal mass effect or midline shift is seen. Kwon to white matter differentiation is well preserved. No abnormal extra-axial fluid collections are identified. Commensurate prominence of the ventricles and sulci is compatible with generalized parenchymal volume loss. There is patchy periventricular and subcortical white matter hypoattenuation, most likely representing microangiopathic disease. Soft tissue swelling and scalp hematoma in the frontal region. No acute calvarial fracture.. Paranasal sinuses and mastoid air cells are well-aerated. MAXILLOFACIAL: The mandible, maxilla, pterygoid plates, nasal bones, zygomatic arches, paranasal sinus holder, and bony orbits are intact. No acute osseous abnormality within the maxillofacial region. The paranasal sinuses and mastoid air cells remain well-aerated. Cervical Spine: The atlantooccipital and atlantoaxial articulations are maintained. No evidence of acute fracture or acute subluxation. Vertebral body heights are maintained. Mild anterolisthesis of C4 on C5 and C7 on T1. Multilevel moderate-severe cervical spondylosis. Multilevel facet degeneration. Posterior osteophytes at C5-6 protruding into the central canal. No prevertebral soft tissue swelling. 3 cm hypodense lesion in the right thyroid lobe. Lung apices are clear. CT/CT cervical spine wo IV con IMPRESSION: 1. No CT evidence of acute intracranial hemorrhage or edematous territorial infarction.. 2. No CT evidence of acute maxillofacial fracture. 3. No CT evidence of acute cervical spine fracture or malalignment. 4. Moderate-severe cervical spondylosis. 5. Hypodense right thyroid lesion measuring 3 cm. Clinically correlate, correlate with prior imaging. If this has not been previously evaluated, recommend ultrasound evaluation. Electronically signed by: Roberto Ponce MD 03/17/2024 06:36 PM [facility] [place] Independent Historian Clinical information obtained from an independent historian. History obtained from or confirmed by: EMS and Other (sister, nephew) External Record Review External record reviewed: Inpatient record, Office record, Outpatient record, Prior outpatient labs, Prior outpatient radiology, Primary care record and Outside ED record Prescription Management I considered prescription management with: Pain Medication Social Determinants Patient?s care significantly limited by Social Determinants of Health including: Other Social Determinant of Health Critical Care Time Critical Care Time Critical Care Time: No Discharge Plan Discharge Clinical Impression: Hematoma of frontal scalp Qualifiers: Encounter type: initial encounter Qualified Code(s): S00.03XA - Contusion of scalp, initial encounter Laceration of forehead Qualifiers: Encounter type: initial encounter Qualified Code(s): S01.81XA - Laceration without foreign body of other part of head, initial encounter Laceration of scalp Qualifiers: Encounter type: initial encounter Qualified Code(s): S01.01XA - Laceration without foreign body of scalp, initial encounter Patient Disposition: Home, Self-Care Instructions: Laceration (ED) Additional Instructions: You have been evaluated in the Emergency Department today for a laceration to your forehead and left scalp. Your forehead laceration was repaired with 3 stitches today. The laceration to the left side of your head was repaired with 2 lucie.? Please keep the area surrounding the laceration clean and dry. Please keep the area out of the sunlight for the next 6 months to help prevent scarring.? If you develop redness or swelling at the site of your laceration please come back to the ER for a wound check. The CT scans of your head/ brain/ neck/ and facial bones do not show fracture or bleed. There is an incidental finding of lesion to your right thyroid. We recommend following up with your PCP for this outpatient for dedicated thyroid ultrasound. I recommend you take 600mg ibuprofen every 6 hours or Tylenol 650mg every 6 hours as needed for pain. If needed, you can alternate these medications so that you take one medication every 3 hours. For example, at noon take ibuprofen, then at 3pm take Tylenol, then at 6pm take ibuprofen. Please follow up with your primary care physician in 3-5 days for suture/ staple removal. You can also return to the ER or another urgent care facility for this service. You may have a concussion. Treatment for this is brain rest. Please limit screen time (i.e phone, tv, etc.) Make sure you are staying hydrated. Lay down to relax in a dark quiet room. Return to the ED if you feel you are more confused, lethargic or have intractable vomiting. Return to the Emergency Department if you experience discharge from your laceration, redness around your laceration, warmth around your laceration, fever, vomiting, numbness, tingling, or any other concerning symptoms. In the case of an emergency call 911. Prescriptions: No Action meclizine 25 mg tablet 25 mg PO DAILY Qty: 30 0RF omeprazole 20 mg capsule,delayed release(DR/EC) 20 mg PO DAILY Qty: 90 3RF metoprolol succinate 50 mg tablet extended release 24 hr 50 mg PO DAILY 90 Days Qty: 90 2RF simvastatin 20 mg tablet 20 mg PO BEDTIME Qty: 90 3RF aspirin [Adult Low Dose Aspirin] 81 mg tablet,delayed release (DR/EC) 81 mg PO DAILY cholecalciferol (vitamin D3) 25 mcg (1,000 unit) capsule 25 mcg PO DAILY coenzyme Q10 [Co Q-10] 100 mg capsule 100 mg PO DAILY gabapentin 300 mg capsule 300 mg PO BEDTIME Qty: 90 0RF cyanocobalamin (vitamin B-12) 1,000 mcg capsule 1,000 mcg PO DAILY Qty: 90 3RF amlodipine 5 mg tablet 5 mg PO DAILY Qty: 90 0RF nystatin 100,000 unit/gram powder 1 appl topical BID Qty: 30 0RF Rx Instructions: Apply 2 times per day thin coat of topical powder to affected area polyethylene glycol 3350 [Miralax] 17 gram powder in packet 17 g PO DAILY PRN (Reason: Constipation) Systane Balance 0.6 % drops 1 drp ophthalmic (eye) DAILY PRN (Reason: Dry Eyes) Print Language: Belarusian
[2024-03-17 15:56] VITALS: BP 134/82; BP 136/85; PULSE 68; PULSE 77; RESP 20; TEMP 36.2; O2SAT 97; O2SAT 98; BMI 30.4
[2024-03-17] MEDS: Acetaminophen 325 MG TABLET 650 MG PO (16:20)
[2024-03-17] MEDS: Lidocaine HCl 1 % MPF 5 ML VIAL INFILTRATI ×2 (16:21)
[2024-03-17 17:57] VITALS: BP 122/52; PULSE 61; RESP 4; TEMP 36.3; O2SAT 95
[2024-03-17 18:56] VITALS: BP 122/52; PULSE 61; RESP 16; TEMP 36.3; O2SAT 95
--- OUTSIDE RECORDS SUMMARY | 2024-03-22 11:22 | XMS_ITS | Clinical Summary ---
Author Organization Unknown Care Team Providers Care Master Pilot Name Role Phone PO INTERSTATE, LORENVER Unavailable Unavaila thao AGUILAR RN, AZUL Unavailable Unavailable PENDRISS STONECUTTER ASSISTANT, MG Unavailable Unavailable MARTINEZ PT, TERESA Unavailable Unavailable MARJ COSTUMING SUPERVISOR, RUTH ANN Unavailable Unavailable AMENA OT, KENN Unavailable Unavailandrei KHAN RN, MILLY Unavailable Unavailable Payers Payer Name Policy Type Policy Number Effective Date Expira tion Date MEDICARE.NGS.PDGM [id number] Problems Condition Name Condition Details Condition Category Status Onset Date Resolution Date Last Treatment Date Treating Clinician Comments COVID-19 Active 2022-04 00:00: 00 HYPERTENSIVE CHRONIC KIDNEY DISEASE W STG 1-4/UNSP CHR KDNY Active 2022-04 00:00: 00 CHRONIC KIDNEY DISEASE, STAGE 4 (SEVERE) Active 2022-04 00:00: 00 PERIPHERAL VASCULAR DISEASE, UNSPECIFIED Active 2022-04 00:00: 00 OBSTRUCTIVE SLEEP APNEA (ADULT) (PEDIATRIC) Active 2022-04 00:00: 00 SICK SINUS SYNDROME Active 2022-04 00:00: 00 REPEATED FALLS Active 2022-04 00:00: 00 RHABDOMYOLYS IS Active 2022-04 00:00: 00 TRAUMATIC ISCHEMIA OF MUSCLE, SUBSEQUENT ENCOUNTER Active 2022-04 00:00: 00 HYPOKALEMIA Active 2022-04 00:00: 00 MENIERE'S DISEASE, UNSPECIFIED EAR Active 2022-04 00:00: 00 MALIGNANT NEOPLASM OF BLADDER, UNSPECIFIED Active 04-12 00:00: 00 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 Active 04-12 00:00: 00 GASTRO-ESOPH AGEAL REFLUX DISEASE WITHOUT ESOPHAGITIS Active 04-12 00:00: 00 HYPERLIPIDEM IA, UNSPECIFIED Active 04-12 00:00: 00 DRY EYE SYNDROME OF BILATERAL LACRIMAL GLANDS Active 2022-04 00:00: 00 [facility] (CURRENT) USE OF ASPIRIN Active 2022-04 00:00: 00 PERSONAL HISTORY OF NICOTINE DEPENDENCE Active 04-12 00:00: 00 PRESENCE OF CARDIAC PACEMAKER Active 04-12 00:00: 00 Allergies, Adverse Reactions, Alerts Allergy Name Allergy Type Status Severity Reaction(s) Onset Date Inactive Date Treating Clinician Comments NO KNOWN ALLERGIES Propensity to adverse reactions Active 2022-04 09:28: 18 Medications Ordered Medication Name Filled Medication Name Start Date Stop Date Current Medication? Ordering Clinician Indication Dosage Frequency Signature (SIG) Comments Components omeprazole 20 mg capsule,del ayed release 2022-04 00:00: 00 Yes [id number] GERD 1 capsule DAILY 1 capsule DAILY (route: oral) Med Classific ation: Gastroint estinal Therapy Agents oxycodone 5 mg tablet 2022-04 00:00: 00 04-02 23:59 :00 No [id number] PAIN 1 tablet DAILY 1 tablet DAILY (route: oral) Med Classific ation: Analgesic , Anti-infl ammatory or Antipyret ic acetaminoph en 500 mg tablet 2022-04 00:00: 00 Yes [id number] PAIN 2 tablet 3 TIMES DAILY 2 tablet 3 TIMES DAILY (route: oral) Med Classific ation: Analgesic , Anti-infl ammatory or Antipyret ic amlodipine 5 mg tablet 2022-04 00:00: 00 Yes [id number] HTN 1 tablet DAILY 1 tablet DAILY (route: oral) Med Classific ation: Cardiovas cular Therapy Agents aspirin 81 mg tablet,etelvina yed release 2022-04 00:00: 00 Yes [id number] HEART HEALTH 1 tablet DAILY 1 tablet DAILY (route: oral) Med Classific ation: Hematolog ical Agents coenzyme Q10 10 mg capsule 2022-04 00:00: 00 Yes [id number] SUPPLEMENT 1 capsule DAILY 1 capsule DAILY (route: oral) Med Classific ation: Alternati ve Therapy gabapentin 300 mg capsule 2022-04 00:00: 00 Yes [id number] NERVE PAIN 1 capsule DAILY 1 capsule DAILY (route: oral) Med Classific ation: Central Nervous System Agents hydrochloro thiazide 25 mg tablet 2022-04 00:00: 00 Yes [id number] DIURETIC 1 tablet DAILY 1 tablet DAILY (route: oral) Med Classific ation: Cardiovas cular Therapy Agents meclizine 12.5 mg tablet 2022-04 00:00: 00 Yes [id number] VERTIGO 1 tablet 2 TIMES DAILY 1 tablet 2 TIMES DAILY (route: oral) Med Classific ation: Gastroint estinal Therapy Agents metoprolol succinate ER 50 mg tablet,exte nded release 24 hr 2022-04 00:00: 00 Yes [id number] HTH 1 tablet DAILY 1 tablet DAILY (route: oral) Med Classific ation: Cardiovas cular Therapy Agents Polytrim 10,000 unit-1 mg/mL eye drops 2022-04 00:00: 00 Yes [id number] INFECTION 1 drops 4 TIMES DAILY 1 drops 4 TIMES DAILY (route: ophthalmic (eye)) Med Classific ation: Ophthalmi c Agents simvastatin 20 mg tablet 2022-04 00:00: 00 Yes [id number] CHOLESTEROL 1 tablet DAILY 1 tablet DAILY (route: oral) Med Classific ation: Cardiovas cular Therapy Agents Vitamin B-12 1,000 mcg tablet 2022-04 00:00: 00 Yes [id number] SUPPLEMENT 1 tablet DAILY 1 tablet DAILY (route: oral) Med Classific ation: Electroly te Balance-N utritiona l Products Vitamin D3 25 mcg (1,000 unit) capsule 2022-04 00:00: 00 Yes [id number] SUPPLEMENT 1 capsule DAILY 1 capsule DAILY (route: oral) Med Classific ation: Electroly te Balance-N utritiona l Products Vital Signs Vital Name Observation Time Observation Value Commen ts Temperature 2023-05-28 11:54:00.000 97.9 [degF] Temperature 2023-05-12 09:17:00.000 97.7 [degF] Temperature 2023-04-28 09:45:00.000 97.2 [degF] Temperature 2023-04-21 10:42:00.000 98.2 [degF] Temperature 2023-04-20 13:39:00.000 97.1 [degF] Temperature 2023-04-15 14:40:00.000 98.8 [degF] Temperature 2023-04-13 10:37:00.000 97.5 [degF] Temperature 2023-04-07 12:30:00.000 97.6 [degF] Temperature 2023-04-03 10:35:00.000 97.5 [degF] BMI (%) 2023-04-03 11:19:55.000 34 kg/m2 Height 2023-04-03 11:19:41.000 61 [in_us] Pulse 2023-05-28 11:54:00.000 72 /min Pulse 2023-05-12 09:17:00.000 83 /min Pulse 2023-04-28 09:45:00.000 68 /min Pulse 2023-04-21 10:42:00.000 63 /min Pulse 2023-04-20 13:39:00.000 72 /min Pulse 2023-04-15 14:40:00.000 71 /min Pulse 2023-04-13 10:37:00.000 60 /min Pulse 2023-04-07 12:30:00.000 68 /min Pulse 2023-04-03 10:35:00.000 64 /min O2 Saturation (%) 2023-05-12 09:17:00.000 94 % O2 Saturation (%) 2023-04-28 09:45:00.000 98 % O2 Saturation (%) 2023-04-21 10:42:00.000 96 % O2 Saturation (%) 2023-04-20 13:39:00.000 98 % O2 Saturation (%) 2023-04-15 14:40:00.000 96 % O2 Saturation (%) 2023-04-07 12:30:00.000 96 % Respirations 2023-05-28 11:54:00.000 18 /min Respirations 2023-05-12 09:17:00.000 18 /min Respirations 2023-04-28 09:45:00.000 18 /min Respirations 2023-04-21 10:42:00.000 18 /min Respirations 2023-04-20 13:39:00.000 18 /min Respirations 2023-04-15 14:40:00.000 18 /min Respirations 2023-04-13 10:37:00.000 18 /min Respirations 2023-04-07 12:30:00.000 17 /min Respirations 2023-04-03 10:35:00.000 18 /min Weight (lbs) 2023-04-03 11:19:55.000 181 [lb_av] Systolic Blood Pressure 2023-05-28 11:54:00.000 126 mm [Hg] Systolic Blood Pressure 2023-05-12 09:17:00.000 110 mm [Hg] Systolic Blood Pressure 2023-04-28 09:45:00.000 122 mm [Hg] Systolic Blood Pressure 2023-04-21 10:42:00.000 130 mm [Hg] Systolic Blood Pressure 2023-04-20 13:39:00.000 132 mm [Hg] Systolic Blood Pressure 2023-04-15 14:40:00.000 130 mm [Hg] Systolic Blood Pressure 2023-04-13 10:37:00.000 118 mm [Hg] Systolic Blood Pressure 2023-04-07 12:30:00.000 124 mm [Hg] Systolic Blood Pressure 2023-04-03 10:35:00.000 118 mm [Hg] Diastolic Blood Pressure 2023-05-28 11:54:00.000 70 mm [Hg] Diastolic Blood Pressure 2023-05-12 09:17:00.000 60 mm [Hg] Diastolic Blood Pressure 2023-04-28 09:45:00.000 68 mm [Hg] Diastolic Blood Pressure 2023-04-21 10:42:00.000 70 mm [Hg] Diastolic Blood Pressure 2023-04-20 13:39:00.000 72 mm [Hg] Diastolic Blood Pressure 2023-04-15 14:40:00.000 70 mm [Hg] Diastolic Blood Pressure 2023-04-13 10:37:00.000 64 mm [Hg] Diastolic Blood Pressure 2023-04-07 12:30:00.000 76 mm [Hg] Diastolic Blood Pressure 2023-04-03 10:35:00.000 64 mm [Hg] Plan of Treatment Planned Activity Planned Date Details Comments Future Scheduled Test RN TO OBSE RVE, ASSESS, EVALUATE, AND DEVELOP AN INDIVIDUALIZED PLAN OF CARE. AGENCY MAY ACCEPT ORDERS FROM CONSULTING PHYSICIANS REGISTERED NURSETO OBSERVE AND ASSESS/LICENSED PRACTICAL NURSE TO OBSERVE FOR RISK FOR FALLS AND INSTRUCT IN FALL PREVENTION, HOME SAFETY, MEDICATION MANAGEMENT, INFECTION PREVENTION, AND NUTRITION MANAGEMENT. REGISTERED NURSE/LICENSED PRACTICAL NURSE MAY PERFORM O2 SATURATION LEVEL ON ADMISSION AND PRN FOR RESP STATUS CHANGES TO ASSESS PATIENT, WITH NOTIFICATION TO THE PHYSICIAN IF SATURATION IS 90% IN THE ABSENCE OF MORE SPECIFIC PARAMETERS FROM THE PHYSICIAN. AGENCY MAY PERFORM A RESUMPTION OF CARE VISIT FOLLOWING ANY HOSPITAL ADMISSION. REGISTERED NURSE/LICENSED PRACTICAL NURSE TO MONITOR CO-MORBID CONDITIONS LISTED ON THE PLAN OF CARE AND ANY NEW CONDITIONS THAT PRESENT THEMSELVES DURING THIS EPISODE TO IDENTIFY CHANGES AND INTERVENE TO MINIMIZE COMPLICATIONS. [code = RN TO OBSERVE, ASSESS, EVALUATE, AND DEVELOP AN INDIVIDUALIZED PLAN OF CARE. AGENCY MAY ACCEPT ORDERS FROM CONSULTING PHYSICIANS REGISTERED NURSETO OBSERVE AND ASSESS/LICENSED PRACTICAL NURSE TO OBSERVE FOR RISK FOR FALLS AND INSTRUCT IN FALL PREVENTION, HOME SAFETY, MEDICATION MANAGEMENT, INFECTION PREVENTION, AND NUTRITION MANAGEMENT. REGISTERED NURSE/LICENSED PRACTICAL NURSE MAY PERFORM O2 SATURATION LEVEL ON ADMISSION AND PRN FOR RESP STATUS CHANGES TO ASSESS PATIENT, WITH NOTIFICATION TO THE PHYSICIAN IF SATURATION IS 90% IN THE ABSENCE OF MORE SPECIFIC PARAMETERS FROM THE PHYSICIAN. AGENCY MAY PERFORM A RESUMPTION OF CARE VISIT FOLLOWING ANY HOSPITAL ADMISSION. REGISTERED NURSE/LICENSED PRACTICAL NURSE TO MONITOR CO-MORBID CONDITIONS LISTED ON THE PLAN OF CARE AND ANY NEW CONDITIONS THAT PRESENT THEMSELVES DURING THIS EPISODE TO IDENTIFY CHANGES AND INTERVENE TO MINIMIZE COMPLICATIONS.] Future Scheduled Test MEDICATION MANAGEMENT; REGISTERED NURSE/LICENSED PRACTICAL NURSE TO REVIEW MEDICATIONS FOR INTERACTIONS, EFFECTIVENESS OF DRUG THERAPY, AND SIGNS/SYMPTOMS OF ADVERSE REACTIONS. MAY INSTRUCT AND REINFORCE MEDICATION TEACHING RELATED TO THE USE OF MEDICATIONS, DOSAGE, FREQUENCY, PURPOSE, SIDE EFFECTS, AND TO REPORT COMPLICATIONS. [code = MEDICATION MANAGEMENT; REGISTERED NURSE/LICENSED PRACTICAL NURSE TO REVIEW MEDICATIONS FOR INTERACTIONS, EFFECTIVENESS OF DRUG THERAPY, AND SIGNS/SYMPTOMS OF ADVERSE REACTIONS. MAY INSTRUCT AND REINFORCE MEDICATION TEACHING RELATED TO THE USE OF MEDICATIONS, DOSAGE, FREQUENCY, PURPOSE, SIDE EFFECTS, AND TO REPORT COMPLICATIONS.] Future Scheduled Test RISK FOR H OSPITALIZATION; REGISTERED NURSE TO ASSESS /TEACH, LICENSED PRACTICAL NURSE TO OBSERVE/TEACH PATIENT/CAREGIVER ON RISK FOR HOSPITALIZATION/EMERGENCY ROOM VISITS, TEACH SIGNS AND SYMPTOMS THAT PUT PATIENT AT RISK, WHEN TO NOTIFY NURSE/PHYSICIAN OF COMPLICATIONS/DECLINE, AND WHEN TO CALL 911. [code = RISK FOR HOSPITALIZATION; REGISTERED NURSE TO ASSESS /TEACH, LICENSED PRACTICAL NURSE TO OBSERVE/TEACH PATIENT/CAREGIVER ON RISK FOR HOSPITALIZATION/EMERGENCY ROOM VISITS, TEACH SIGNS AND SYMPTOMS THAT PUT PATIENT AT RISK, WHEN TO NOTIFY NURSE/PHYSICIAN OF COMPLICATIONS/DECLINE, AND WHEN TO CALL 911.] Future Scheduled Test PAIN MANAG EMENT; REGISTERED NURSE TO ASSESS AND TEACH/LICENSED PRACTICAL NURSE TO OBSERVE AND TEACH AND PROVIDE EDUCATION ON PAIN MANAGEMENT TECHNIQUES. [code = PAIN MANAGEMENT; REGISTERED NURSE TO ASSESS AND TEACH/LICENSED PRACTICAL NURSE TO OBSERVE AND TEACH AND PROVIDE EDUCATION ON PAIN MANAGEMENT TECHNIQUES.] Future Scheduled Test FALL REDUC TION MANAGEMENT; REGISTERED NURSE TO ASSESS AND TEACH/LICENSED PRACTICAL NURSE TO OBSERVE AND TEACH ON EDUCATION AND INTERVENTION TO IDENTIFY FALL RISK FACTORS SUCH MEDICATIONS THAT MAY CAUSE DIZZINESS, CHRONIC DISEASES, PSYCHOLOGICAL FACTORS, AND EMPOWER/EDUCATE PATIENT/CAREGIVER TO MINIMIZE FALL RISK. [code = FALL REDUCTION MANAGEMENT; REGISTERED NURSE TO ASSESS AND TEACH/LICENSED PRACTICAL NURSE TO OBSERVE AND TEACH ON EDUCATION AND INTERVENTION TO IDENTIFY FALL RISK FACTORS SUCH MEDICATIONS THAT MAY CAUSE DIZZINESS, CHRONIC DISEASES, PSYCHOLOGICAL FACTORS, AND EMPOWER/EDUCATE PATIENT/CAREGIVER TO MINIMIZE FALL RISK.] Future Scheduled Test RESPIRATOR Y SYSTEM MANAGEMENT; REGISTERED NURSE TO ASSESS AND TEACH/LICENSED PRACTICAL NURSE TO OBSERVE AND TEACH RELATED TO ALTERED RESPIRATORY STATUS TO MINIMIZE COMPLICATIONS AND REDUCE HOSPITALIZATION. [code = RESPIRATORY SYSTEM MANAGEMENT; REGISTERED NURSE TO ASSESS AND TEACH/LICENSED PRACTICAL NURSE TO OBSERVE AND TEACH RELATED TO ALTERED RESPIRATORY STATUS TO MINIMIZE COMPLICATIONS AND REDUCE HOSPITALIZATION.] Future Scheduled Test PNEUMONIA MANAGEMENT; REGISTERED NURSE TO ASSESS AND TEACH/LICENSED PRACTICAL NURSE TO OBSERVE AND TEACH SIGNS OF PNEUMONIA EXACERBATION AND PROVIDE EARLY INTERVENTIONS TO MINIMIZE RISK OF HOSPITALIZATION. [code = PNEUMONIA MANAGEMENT; REGISTERED NURSE TO ASSESS AND TEACH/LICENSED PRACTICAL NURSE TO OBSERVE AND TEACH SIGNS OF PNEUMONIA EXACERBATION AND PROVIDE EARLY INTERVENTIONS TO MINIMIZE RISK OF HOSPITALIZATION.] Goal 2023-05-28 Patient Goal - TO GET STRONG ER Goal Provider Goal - A PLAN OF CARE WILL BE ESTABLISHED THAT MEETS THE PATIENTS NEEDS. PATIENT WILL DEMONSTRATE OXYGEN SATURATION WITHIN NORMAL LIMITS OR PATIENTS OPTIMAL LEVEL ESTABLISHED BY THE PHYSICIAN THROUGHOUT CARE. CHANGES TO CO-MORBID CONDITIONS AND ANY NEW CONDITIONS WILL BE IDENTIFIED AND REPORTED TO THE PHYSICIAN. Goal Provider Goal - PATIENT/CAREGIVER TO VERBALIZE, AND CONSISTENTLY DEMONSTRATE EFFECTIVE, SAFE MANAGEMENT OF MEDICATION INCLUDING KNOWLEDGE OF EFFECTIVENESS, POTENTIAL SIDE EFFECTS AND DRUG REACTIONS AND WHEN TO CONTACT THE APPROPRIATE CARE PROVIDER. PATIENT/CAREGIVER WILL BE ABLE TO VERBALIZE UNDERSTANDING OF MEDICATION REGIMEN AND ACCURATELY TAKE MEDICATIONS PRESCRIBED WITHOUT ADVERSE EFFECTS BY 06/01/23 Goal Provider Goal - PATIENT/CAREGIVER WILL VERBALIZE UNDERSTANDING OF SIGNS AND SYMPTOMS THAT PUT THE PATIENT AT RISK FOR HOSPITALIZATION /EMERGENCY ROOM VISITS, WHEN TO NOTIFY NURSE/PHYSICIAN OF COMPLICATIONS/DECLINE AND WHEN TO CALL 911. Goal Provider Goal - PATIENT / CAREGIVER WILL VERBALIZE / DEMONSTRATE UNDERSTANDING OF PAIN CONTROL MEASURES BY 06/01/23 Goal Provider Goal - PATIENT/CAREGIVER ABLE TO IDENTIFY FALL RISK FACTORS AND IMPLEMENT STRATEGIES TO MINIMIZE FALL RISK. PATIENT/CAREGIVER WILL VERBALIZE/DEMONSTRATE AN ABILITY TO ADHERE TO FALL REDUCTION SELF MANAGEMENT AND LIFE-STYLE CHANGES AT DISCHARGE. PERSONAL GOAL(S) STATED BY PATIENT/CAREGIVER WILL BE MET BY 06/01/23 Goal Provider Goal - PATIENT / CAREGIVER WILL VERBALIZE/DEMONSTRATE UNDERSTANDING OF MEASURES TO MANAGE ALTERED RESPIRATORY STATUS BY END OF EPISODE. Goal Provider Goal - PATIENT / CAREGIVER WILL VERBALIZE/DEMONSTRATE AN ABILITY TO ADHERE TO PNEUMONIA SELF-MANAGEMENT TO MINIMIZE COMPLICATIONS AND AVOID HOSPITALIZATION BY END OF EPISODE. Reason for Visit INDEPENDENT IN THE HOME Encounters Start Date/Time End Date/Time Encounter Type Admission Type Attending [facility] Department Encounter ID Discharge Date Discharge Status Discharge Condition Discharge Reason Percent Goals Met 2023-04-03 00:00:00 2023-05-28 00:00:00 Outpatient NEW ADMISSION M[facility]Y [facility] [id number] 2023-05-28 00:00:00 DISCHARGE TO HOME OR SELF CARE INDEPENDEN T IN THE HOME HH OR PAL- GOALS MET 100.00
== END 2024-03-17 18:56 | disposition home or self-care (01) ==
PROVIDERS: Emergency Provider Emergency Medicine; PCP Internal Medicine
DX: S00.03XA Contusion of scalp, initial encounter (principal); S01.81XA Laceration without foreign body of other part of head, initial encounter; S01.01XA Laceration without foreign body of scalp, initial encounter; W01.198A Fall on same level from slipping, tripping and stumbling with subsequent striking against other object, initial encounter; R29.700 NIHSS score 0; Z91.81 History of falling; Y93.01 Activity, walking, marching and hiking; Y92.038 Other place in apartment as the place of occurrence of the external cause; Y99.9 Unspecified external cause status
CPT/HCPCS: 12001; 12011; 70450; 70486; 72125; 99284; J2003

== ENCOUNTER 2024-03-23 14:31 | Outpatient (AMB) | payer MEDICARE, SELFPAY ==
--- OUTSIDE RECORDS SUMMARY | 2024-03-23 14:32 | XMS_ITS | Clinical Summary ---
Author Organization Unknown Care Team Providers Care Outsole Scheduler Name Role Phone PO INTERSTATE, LORENVER Unavailable Unavaila thao AGUILAR RN, AZUL Unavailable Unavailable PENDRISS PLANT SAFETY ENGINEER, MG Unavailable Unavailable MARTINEZ PT, TERESA Unavailable Unavailable MARJ NIGHT CLERK AUDITOR, RUTH ANN Unavailable Unavailable AMENA OT, KENN Unavailable Unavailandrei KHAN RN, MILLY Unavailable Unavailable Payers Payer Name Policy Type Policy Number Effective Date Expira tion Date MEDICARE.NGS.PDGM [id number] Problems Condition Name Condition Details Condition Category [...] BILATERAL LACRIMAL GLANDS Active 2022-04 00:00: 00 [facility] (CURRENT) USE OF ASPIRIN Active 2022-04 00:00: [...] capsule,del ayed release 2022-04 00:00: 00 Yes [id number] GERD 1 capsule DAILY 1 capsule DAILY (route: oral) Med Classific ation: Gastroint estinal Therapy Agents oxycodone 5 mg tablet 2022-04 00:00: 00 04-02 23:59 :00 No [id number] PAIN 1 tablet DAILY 1 tablet DAILY (route: oral) Med Classific ation: Analgesic , Anti-infl ammatory or Antipyret ic acetaminoph en 500 mg tablet 2022-04 00:00: 00 Yes [id number] PAIN 2 tablet 3 TIMES DAILY 2 tablet 3 TIMES DAILY (route: oral) Med Classific ation: Analgesic , Anti-infl ammatory or Antipyret ic amlodipine 5 mg tablet 2022-04 00:00: 00 Yes [id number] HTN 1 tablet DAILY 1 tablet DAILY (route: oral) Med Classific ation: Cardiovas cular Therapy Agents aspirin 81 mg tablet,etelvina yed release 2022-04 00:00: 00 Yes [id number] HEART HEALTH 1 tablet DAILY 1 tablet DAILY (route: oral) Med Classific ation: Hematolog ical Agents coenzyme Q10 10 mg capsule 2022-04 00:00: 00 Yes [id number] SUPPLEMENT 1 capsule DAILY 1 capsule DAILY (route: oral) Med Classific ation: Alternati ve Therapy gabapentin 300 mg capsule 2022-04 00:00: 00 Yes [id number] NERVE PAIN 1 capsule DAILY 1 capsule DAILY (route: oral) Med Classific ation: Central Nervous System Agents hydrochloro thiazide 25 mg tablet 2022-04 00:00: 00 Yes [id number] DIURETIC 1 tablet DAILY 1 tablet DAILY (route: oral) Med Classific ation: Cardiovas cular Therapy Agents meclizine 12.5 mg tablet 2022-04 00:00: 00 Yes [id number] VERTIGO 1 tablet 2 TIMES DAILY 1 tablet 2 TIMES DAILY (route: oral) Med Classific ation: Gastroint estinal Therapy Agents metoprolol succinate ER 50 mg tablet,exte nded release 24 hr 2022-04 00:00: 00 Yes [id number] HTH 1 tablet DAILY 1 tablet DAILY (route: oral) Med Classific ation: Cardiovas cular Therapy Agents Polytrim 10,000 unit-1 mg/mL eye drops 2022-04 00:00: 00 Yes [id number] INFECTION 1 drops 4 TIMES DAILY 1 drops 4 TIMES DAILY (route: ophthalmic (eye)) Med Classific ation: Ophthalmi c Agents simvastatin 20 mg tablet 2022-04 00:00: 00 Yes [id number] CHOLESTEROL 1 tablet DAILY 1 tablet DAILY (route: oral) Med Classific ation: Cardiovas cular Therapy Agents Vitamin B-12 1,000 mcg tablet 2022-04 00:00: 00 Yes [id number] SUPPLEMENT 1 tablet DAILY 1 tablet DAILY (route: oral) Med Classific ation: Electroly te Balance-N utritiona l Products Vitamin D3 25 mcg (1,000 unit) capsule 2022-04 00:00: 00 Yes [id number] SUPPLEMENT 1 capsule DAILY 1 capsule DAILY [...] End Date/Time Encounter Type Admission Type Attending [facility] Department Encounter ID Discharge Date Discharge Status Discharge Condition Discharge Reason Percent Goals Met 2023-04-03 00:00:00 2023-05-28 00:00:00 Outpatient NEW ADMISSION MILLY KHAN [facility] [id number] 2023-05-28 00:00:00 DISCHARGE TO HOME OR SELF CARE INDEPENDEN T IN THE HOME HH OR PAL- GOALS MET 100.00
--- OUTSIDE RECORDS SUMMARY | 2024-03-23 14:32 | XMS_ITS | Clinical Summary ---
Author Organization Unknown Care Team Providers Care Abrasive Wheel Molder Name Role Phone PO INTERSTATE, LORENVER Unavailable Unavaila thao AGUILAR RN, AZUL Unavailable Unavailable PENDRISS DEPUTY DIRECTOR, MG Unavailable Unavailable MARTINEZ PT, TERESA Unavailable Unavailable MARJ LAWN SERVICE SUPERVISOR, RUTH ANN Unavailable Unavailable AMENA OT, KENN Unavailable Unavailandrei KHAN RN, MILLY Unavailable Unavailable Payers Payer Name Policy Type Policy Number Effective Date Expira tion Date MEDICARE.NGS.PDGM [id number] Problems Condition Name Condition Details Condition Category [...] BILATERAL LACRIMAL GLANDS Active 2022-04 00:00: 00 [facility] (CURRENT) USE OF ASPIRIN Active 2022-04 00:00: [...] capsule,del ayed release 2022-04 00:00: 00 Yes [id number] GERD 1 capsule DAILY 1 capsule DAILY (route: oral) Med Classific ation: Gastroint estinal Therapy Agents oxycodone 5 mg tablet 2022-04 00:00: 00 04-02 23:59 :00 No [id number] PAIN 1 tablet DAILY 1 tablet DAILY (route: oral) Med Classific ation: Analgesic , Anti-infl ammatory or Antipyret ic acetaminoph en 500 mg tablet 2022-04 00:00: 00 Yes [id number] PAIN 2 tablet 3 TIMES DAILY 2 tablet 3 TIMES DAILY (route: oral) Med Classific ation: Analgesic , Anti-infl ammatory or Antipyret ic amlodipine 5 mg tablet 2022-04 00:00: 00 Yes [id number] HTN 1 tablet DAILY 1 tablet DAILY (route: oral) Med Classific ation: Cardiovas cular Therapy Agents aspirin 81 mg tablet,etelvina yed release 2022-04 00:00: 00 Yes [id number] HEART HEALTH 1 tablet DAILY 1 tablet DAILY (route: oral) Med Classific ation: Hematolog ical Agents coenzyme Q10 10 mg capsule 2022-04 00:00: 00 Yes [id number] SUPPLEMENT 1 capsule DAILY 1 capsule DAILY (route: oral) Med Classific ation: Alternati ve Therapy gabapentin 300 mg capsule 2022-04 00:00: 00 Yes [id number] NERVE PAIN 1 capsule DAILY 1 capsule DAILY (route: oral) Med Classific ation: Central Nervous System Agents hydrochloro thiazide 25 mg tablet 2022-04 00:00: 00 Yes [id number] DIURETIC 1 tablet DAILY 1 tablet DAILY (route: oral) Med Classific ation: Cardiovas cular Therapy Agents meclizine 12.5 mg tablet 2022-04 00:00: 00 Yes [id number] VERTIGO 1 tablet 2 TIMES DAILY 1 tablet 2 TIMES DAILY (route: oral) Med Classific ation: Gastroint estinal Therapy Agents metoprolol succinate ER 50 mg tablet,exte nded release 24 hr 2022-04 00:00: 00 Yes [id number] HTH 1 tablet DAILY 1 tablet DAILY (route: oral) Med Classific ation: Cardiovas cular Therapy Agents Polytrim 10,000 unit-1 mg/mL eye drops 2022-04 00:00: 00 Yes [id number] INFECTION 1 drops 4 TIMES DAILY 1 drops 4 TIMES DAILY (route: ophthalmic (eye)) Med Classific ation: Ophthalmi c Agents simvastatin 20 mg tablet 2022-04 00:00: 00 Yes [id number] CHOLESTEROL 1 tablet DAILY 1 tablet DAILY (route: oral) Med Classific ation: Cardiovas cular Therapy Agents Vitamin B-12 1,000 mcg tablet 2022-04 00:00: 00 Yes [id number] SUPPLEMENT 1 tablet DAILY 1 tablet DAILY (route: oral) Med Classific ation: Electroly te Balance-N utritiona l Products Vitamin D3 25 mcg (1,000 unit) capsule 2022-04 00:00: 00 Yes [id number] SUPPLEMENT 1 capsule DAILY 1 capsule DAILY [...] End Date/Time Encounter Type Admission Type Attending [facility] Department Encounter ID Discharge Date Discharge Status Discharge Condition Discharge Reason Percent Goals Met 2023-04-03 00:00:00 2023-05-28 00:00:00 Outpatient NEW ADMISSION [facility] [id number] 2023-05-28 00:00:00 DISCHARGE TO HOME OR SELF CARE INDEPENDEN T IN THE HOME HH OR PAL- GOALS MET 100.00
--- NOTE | 2024-03-23 14:43 | A.OFFPC_ITS ---
Vital Signs 03/23/24 14:44 Height 5 ft 1 in Weight 168 lb 2 oz BMI 31.8 BP 120/68 Blood Pressure Location Lt brachial Position Sitting Pulse 72 Pulse Source Pulse Oximeter Pulse Oximetry (%) 94 Oxygen Delivery Method Room Air Intake Visit Reasons: [facility] [place] 03/17 3 stich 2 lucie lt side head removal Intake Note: Patient is here to follow-up after a visit the emergency department at [facility] [place] on 03/17/24 Party Plan Demonstrator Required: No Bargain Table Clerk: Present Accompanied by: Sister Allergies No Known Allergies [No Known Allergies*] Allergy (Verified 03/23/24 15:06) Medication List - Last Reconciled 03/23/24 by Teagan Kitchen PA-C amlodipine 5 mg PO DAILY aspirin (Adult Low Dose Aspirin) 81 mg PO DAILY cholecalciferol (vitamin D3) 25 mcg PO DAILY coenzyme Q10 (Co Q-10) 100 mg PO DAILY cyanocobalamin (vitamin B-12) 1,000 mcg PO DAILY gabapentin 300 mg PO BEDTIME meclizine 25 mg PO DAILY metoprolol succinate ER 50 mg PO DAILY 90 days nystatin 1 appl topical BID omeprazole 20 mg PO DAILY polyethylene glycol 3350 (Miralax) 17 grams PO DAILY PRN propylene glycol 0.6% (Systane Balance) 1 drp ophthalmic (eye) DAILY PRN simvastatin 20 mg PO BEDTIME Tobacco use date assessed: 03/23/24 Fall risk assessment: 1 Fall in past year Last assessed Fall Risk: 03/23/24 Dental Screening Dental Screen Date: 07/23/23 HPI HPI Comments History of Present Illness Details 88-year-old female with a past medical h istory of hypertension presenting to the clinic for stitches and staple removal to her face and scalp. She had these placed in the ER on 03/17/2024. She had a fall and had imaging of her head which were negative for any acute processes. She reports she has mild pain to the wounds although improving. She denies any continue his headaches, dizziness, change in vision, fevers, purulent drainage, spreading erythema to the wounds. Patient also would like to discuss her blood pressure medication hydrochlorothiazide. She reports Dr. Naik discontinued her hydrochlorothiazide 25 mg at her last visit due to hypotension. She is unsure what her blood pressure was at that time. Although over the past 2-3 weeks she has had significant leg swelling and is requesting to be restarted on hydrochlorothiazide. She denies any chest pain, shortness of breath, dyspnea on exertion orthopnea at this time She denies any other symptoms complaints or concerns at this time. [facility] Medical History (Updated 03/23/24 @ 15:14 by Teagan Kitchen PA-C) Pedal edema Removal of staple Visit for suture removal Complicated urinary tract infection Dysphagia Screening for breast cancer Abnormal ultrasound of breast Abnormal mammogram of left breast Multiple falls Physical deconditioning Breast cancer, left Breast cancer Chronic renal insufficiency HTN (hypertension) Cardiac pacemaker in situ AV block Leg edema Screening for diabetes mellitus On beta jake at home Arthritis Vertigo MARIELA (obstructive sleep apnea) Sick sinus syndrome Peripheral vascular disease Menieres disease Urinary bladder cancer Obesity Gout GERD (gastroesophageal reflux disease) Hypercholesterolemia Surgical History History of lumpectomy of left breast (03/10/23) History of esophagogastroduodenoscopy (EGD) S/P cardiac pacemaker procedure Hx of colonoscopy History of cystoscopy S/P MARION-BSO (total abdominal hysterectomy and bilateral salpingo-oophorectomy) History of cataract surgery History of knee replacement History of tonsillectomy History of appendectomy History of cholecystectomy Family History Father Stroke Mother Heart disease Social History Household Members: None Housing: Apartment Are you a primary cattle care worker to a significant other at home: No Do you presently have visiting nurse or other home services: No Alcohol intake: current Alcohol intake frequency: does not drink Patient Tobacco Use Status: Former Tobacco user Tobacco use type: Cigarette e-Cigarette/Vaping Use: Never Used Second Hand Smoke Exposure: No Advance Directives Date on File: 09/15/21 service: No Current occupational status: retired Cognitive needs: No Hearing needs: Yes Vision needs: Yes Questionnaire Thrive Questionnaire Date Thrive assessed: 07/23/23 Are you currently unemployed and looking for a job?: No DESI-7 AMB Questionnaire DESI-7 Date DESI - 7 assessed: 05/12/23 Source: Developed by Drs. Wilver L. KatjaTanya logan, Thomas Perry and colleagues, with an educational mike from [employer]. Review of Systems Const All systems reviewed & are unremarkable except as noted in HPI and below Physical exam (Primary Care) Vital Signs: Last Vital Signs Pulse 72 03/23/24 14:44 BP 120/68 03/23/24 14:44 Pulse Ox 94 03/23/24 14:44 Oxygen Delivery Method Room Air 03/23/24 14:44 BMI result Body Mass Index 31.8 Tobacco/Smoking Status: Tobacco use Status Tobacco use date assessed 03/23/24 03/23/24 14:51 Patient Tobacco Use Status Former Tobacco user 03/23/24 14:51 Tobacco use type Cigarette 03/23/24 14:51 e-Cigarette/Vaping Use Never Used 03/23/24 14:51 Thrive Assessment: Date of Thrive Assessment Date Thrive assessed 07/23/23 03/23/24 14:51 Const Other: Appearance: Alert. Oriented. No acute distress. ? Head: To the left parietal scalp there are [address] with well healing scab. There is no advancing erythema, streaking, induration, fluctuance, purulent drainage or signs of active infection. To the left side of the patient's forehead patient has [address] with well-healing scab. There is no advancing erythema, streaking, induration, fluctuance, purulent drainage or signs of active infection at this time. old Ecchymosis noted to the left periorbital and left forehead area. Eyes: PERRLA. EOMI. Conjunctiva and sclera normal. Eyelids normal. ? ENT: Pharynx normal. Uvula midline. Neck: Normal inspection. Neck supple. FROM. CVS: Normal heart rate and rhythm. Heart sound normal. No murmurs noted. Pulses normal throughout. Respiratory: No respiratory distress. Painless inspiration. Breath sounds normal. No wheezes/rales/rhonchi noted. Chest nontender. ? No accessory muscle usage noted or decreased air movement noted. Back: Full range of motion noted. Skin: Skin warm and dry.? Normal skin color.? Normal skin turgor. No rashes/lesions/lacerations noted. Extremities: + 3 pitting lower extremity edema. ?No calf tenderness is noted. Extremities exhibit normal range of motion.? Neuro: Oriented X 3.? No motor deficit.? No sensory deficit.? Reflexes normal. Coding Level of Care Code Est Pt Level 4 (11392) Complex EM visit Add On G2211 Diagnoses Visit for suture removal Z48.02 Removal of staple Z48.02 HTN (hypertension) I10 Pedal edema R60.0 Assessment & Plan Assessment & Plan (1) Visit for suture removal: Code(s): Z48.02 - Encounter for removal of sutures Category: Medical Plan: Three sutures removed from left forehead. No signs of infection. No complications. Patient tolerated procedure well. (2) Removal of staple: Code(s): Z48.02 - Encounter for removal of sutures Category: Medical Plan: 2 lucie removed from left parietal scalp. No signs of infection. No complications. Patient tolerated procedure well (3) HTN (hypertension): Code(s): I10 - Essential (primary) hypertension Category: Medical Plan: Patient will be restarted on 12.5 mg HCTZ. (4) Pedal edema: Code(s): R60.0 - Localized edema Category: Medical Plan: will restart on HCTZ 12.5mg Plan [place] and sutures removed without any complications. Patient will restarted on hydrochlorothiazide although at reduced dose at 12.5 mg. Patient to follow- up with PCP within the next month.
[2024-03-23 14:44] VITALS: BP 120/68; PULSE 72; O2SAT 94; BMI 31.8
== END 2024-03-23 15:08 | disposition home or self-care (01) ==
PROVIDERS: PCP Internal Medicine; Visit Provider Physician Assistant Medical
DX: Z48.02 Encounter for removal of sutures (principal); I10 Essential (primary) hypertension; R60.0 Localized edema

== ENCOUNTER → 2024-03-23 14:31 | Outpatient (BNVA) | payer MEDICARE, SELFPAY | PROVIDERS: PCP Internal Medicine; Visit Provider Physician Assistant Medical | DX: Z48.02 Encounter for removal of sutures (principal); R60.0 Localized edema; I10 Essential (primary) hypertension | CPT/HCPCS: 99212 ==

== ENCOUNTER 2024-04-19 14:26 | Outpatient (REF) | payer MEDICARE, SELFPAY ==
[2024-04-19 15:42] LABS: Hematocrit 38.8 % (37.0-47.0); Hemoglobin 12.4 g/dl (12.0-16.0); Mean Corpuscular Volume 90.7 fL (80.0-98.0); Mean Platelet Volume 9.2 fL (9.4-12.3); Platelet Count 342 X10*3/uL (160-400); Red Blood Count 4.28 X10*6/uL (4.20-5.50); White Blood Count 6.4 X10*3/uL (4.8-10.8)
[2024-04-19 16:05] LABS: Anion Gap 9 (12-20); Blood Urea Nitrogen 24 mg/dL (9-16); Calcium 9.3 mg/dL (8.4-10.2); Carbon Dioxide 31 mmol/L (22-29); Chloride 105 mmol/L (96-108); Estimated Glomerular Filt Rate 46; Glucose Random 118 mg/dL (60-115); Potassium 4.2 mmol/L (3.3-5.1); Sodium 141 mmol/L (135-145)
== END 2024-04-19 14:27 | disposition home or self-care (01) ==
LOC: HO.LAB 14:26
PROVIDERS: PCP Internal Medicine; Visit Provider Internal Medicine Cardiovascular Disease
DX: Z45.018 Encounter for adjustment and management of other part of cardiac pacemaker (principal); I48.19 Other persistent atrial fibrillation; I10 Essential (primary) hypertension
CPT/HCPCS: 36415; 80048; 85027; 93280; 99212

== ENCOUNTER 2024-04-19 14:26 | Outpatient (AMB) | payer MEDICARE, SELFPAY ==
--- NOTE | 2024-04-19 14:27 | A.OFFVIS_ITS ---
Vital Signs 04/19/24 14:28 Height 5 ft 1 in Weight 163 lb 2.273 oz BMI 30.8 BP 128/82 Blood Pressure Location Lt brachial Position Sitting Pulse 65 Intake Visit Reasons: 6m pacer ck Intake Note: 6 month follow-up with [employer] check feeling good Legal Secretary Required: No Clinical Admissions Manager: Clinical Admissions Manager Present Accompanied by: Sister Allergies No Known Allergies [No Known Allergies*] Allergy (Verified 03/23/24 15:06) Medication List - Last Reconciled 04/19/24 by Facundo Solis MD amlodipine 5 mg PO DAILY aspirin (Adult Low Dose Aspirin) 81 mg PO DAILY cholecalciferol (vitamin D3) 25 mcg PO DAILY coenzyme Q10 (Co Q-10) 100 mg PO DAILY cyanocobalamin (vitamin B-12) 1,000 mcg PO DAILY gabapentin 300 mg PO BEDTIME hydrochlorothiazide 6.25 mg PO DAILY meclizine 25 mg PO DAILY metoprolol succinate ER 50 mg PO DAILY 90 days nystatin 1 appl topical BID omeprazole 20 mg PO DAILY polyethylene glycol 3350 (Miralax) 17 grams PO DAILY PRN propylene glycol 0.6% (Systane Balance) 1 drp ophthalmic (eye) DAILY PRN simvastatin 20 mg PO BEDTIME HPI Comments Details: Gricelda comes for follow-up. Noted on pacer telemetry to be in atrial fibrillation for last 28 days. She denies any significant symptoms of palpitations. Denies any worsening functional capacity. Denies any worsening shortness of breath, fatigue. No orthopnea, PND, leg edema. Denies any chest pain. No lightheadedness, syncope. No new bleeding issues or neurologic events. [facility] Medical History Paroxysmal atrial fibrillation Pedal edema Removal of staple Visit for suture removal Complicated urinary tract infection Dysphagia Screening for breast cancer Abnormal ultrasound of breast Abnormal mammogram of left breast Multiple falls Physical deconditioning Breast cancer, left Breast cancer Chronic renal insufficiency HTN (hypertension) Cardiac pacemaker in situ AV block Leg edema Screening for diabetes mellitus On beta jake at home Arthritis Vertigo MARIELA (obstructive sleep apnea) Sick sinus syndrome Peripheral vascular disease Menieres disease Urinary bladder cancer Obesity Gout GERD (gastroesophageal reflux disease) Hypercholesterolemia Surgical History History of lumpectomy of left breast (03/10/23) History of esophagogastroduodenoscopy (EGD) S/P cardiac pacemaker procedure Hx of colonoscopy History of cystoscopy S/P MARION-BSO (total abdominal hysterectomy and bilateral salpingo-oophorectomy) History of cataract surgery History of knee replacement History of tonsillectomy History of appendectomy History of cholecystectomy Family History Father Stroke Mother Heart disease Social History Household Members: None Housing: Apartment Are you a primary skin care instructor to a significant other at home: No Do you presently have visiting nurse or other home services: No Alcohol intake: current Alcohol intake frequency: does not drink Patient Tobacco Use Status: Former Tobacco user Tobacco use type: Cigarette e-Cigarette/Vaping Use: Never Used Second Hand Smoke Exposure: No Advance Directives Date on File: 09/15/21 service: No Current occupational status: retired Cognitive needs: No Hearing needs: Yes Vision needs: Yes Review of Systems Const Denies chills, Denies fatigue, Denies fever(s), Denies frequent falls, Denies weakness, Denies weight gain and Denies weight loss ENT Denies dizziness Card Denies chest pain, Denies leg edema, Denies lightheadedness, Denies palpitations, Denies dyspnea, Denies dyspnea on exertion, Denies orthopnea and Denies other (loss of consciousness) Resp Denies cough, Denies dyspnea and Denies dyspnea on exertion GI Denies hematochezia and Denies change in stool character Musc Denies abnormal gait, Denies muscle weakness, Denies numbness, Denies radiating pain into limb and Denies tingling Neuro Denies Abnormal speech present, Denies abnormal gait, Denies dizziness, Denies frequent falls, Denies numbness, Denies tingling and Denies weakness Endo Denies fatigue and Denies palpitations Physical Exam Vital Signs: Last Vital Signs Pulse 65 04/19/24 14:28 BP 128/82 04/19/24 14:28 BMI result Body Mass Index 30.8 Const General: cooperative and no acute distress HEENT Other: Unremarkable Neck Neck: Yes normal visual inspection Chest Chest palpation & inspection: normal inspection of the chest Resp Auscultation: clear to auscultation bilaterally, no crackles and no wheezes Cardio Jugular venous distension: no JVD Palpation: normal PMI Rate: regular rate Rhythm: regular rhythm Heart sounds: S1 normal heart sound present, S2 normal heart sound present, no gallops, no murmurs and no rubs GI Palpation (GI): Soft to palpation Back/Spine/Pelvis Other: unremarkable Skin General skin exam: no rashes or lesions noted Neuro Cranial nerves: Yes Other cranial nerve findings present Speech: No Abnormal speech present Extrem General: No clubbing, No cyanosis and Yes edema ( Bilateral lymphedema, right greater than left) Psych Mental Status: other Office Procedures Cardiac Device Check Cardiac Device Check Details: Dual-chamber Medtronic pacemaker which is programmed in MVP mode was reprogrammed to VVIR due to persistent atrial fibrillation since 03/24/2024. Ventricular pacing thresholds are adequate. Ventricular lead impedance is stable. Battery life is 7 months 08390-HL Cardiac Device Check, pacemaker dual lead Procedure code (CPT) selection complete Assessment & Plan Assessment & Plan (1) Persistent atrial fibrillation: Code(s): I48.19 - Other persistent atrial fibrillation Category: Medical Plan: Persistent atrial fibrillation this elderly woman without any obvious symptoms at this point time. Will pursue rate control approach at this point time given lack of symptoms. We discussed potential symptoms associated with persistent atrial fibrillation. Will check renal function and CBC. If creatinine is below 1.5, will start Eliquis 5 mg b.i.d.. This was discussed with her. Stop aspirin therapy. This was discussed with her as well. She understands agrees. (2) Cardiac pacemaker in situ: Comment: Medtronic dual-chamber pacemaker in place Code(s): Z95.0 - Presence of cardiac pacemaker Category: Medical Plan: Cardiac pacemaker in-situ, working well. Patient pacer dependent in the ventricle. No other changes need to be made. Follow remotely in 3 months time. (3) HTN (hypertension): Code(s): I10 - Essential (primary) hypertension Category: Medical Plan: Hypertension which is currently well optimized advised to monitor blood pressure at home maintain a log. Goal blood pressure less than 130/84. Low-salt diet was discussed. Continue current therapy. Follow up in the clinic in 6 months time, sooner p.r.n.. Thank you for allowing me to partake in her care Orders: Orders Basic Metabolic Panel Today Facundo Will, MD I48.19 - Other persistent atrial fibrillation Complete Blood Count no Diff Today Facundo Solis MD I48.19 - Other persistent atrial fibrillation Medications: Changed From hydrochlorothiazide 12.5 mg PO DAILY 90 tabs 1RF To hydrochlorothiazide 6.25 mg PO DAILY Teagan Kitchen PA-C Coding Level of Care Code Est Pt Level 4 (60747) Complex EM visit Add On G2211 Diagnoses Persistent atrial fibrillation I48.19 Cardiac pacemaker in situ Z95.0 HTN (hypertension) I10 CPT Codes Cardiac Device Check - Cardiac Device 2: [id number] Cardiac Device Check, pacemaker dual lead ([id number])
[2024-04-19 14:28] VITALS: BP 128/82; PULSE 65; BMI 30.8
--- OUTSIDE RECORDS SUMMARY | 2024-04-19 14:29 | XMS_ITS | Clinical Summary ---
Author Organization Unknown Care Team Providers Care Taproom Attendant Name Role Phone PO INTERSTATE, LORENVER Unavailable Unavaila thao AGUILAR RN, AZUL Unavailable Unavailable PENDRISS HISTOPATH TECH, MG Unavailable Unavailable MARTINEZ PT, TERESA Unavailable Unavailable MARJ DIRECTOR OF CUSTOMER ACQUISITION, RUTH ANN Unavailable Unavailable AMENA OT, KENN Unavailable Unavailandrei KHAN RN, MILLY Unavailable Unavailable Payers Payer Name Policy Type Policy Number Effective Date Expira tion Date MEDICARE.NGS.PDGM [id number] Problems Condition Name Condition Details Condition Category [...] BILATERAL LACRIMAL GLANDS Active 2022-04 00:00: 00 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 Active 2022-04 00:00: [...] capsule,del ayed release 2022-04 00:00: 00 Yes [id number] GERD 1 capsule DAILY 1 capsule DAILY (route: oral) Med Classific ation: Gastroint estinal Therapy Agents oxycodone 5 mg tablet 2022-04 00:00: 00 04-02 23:59 :00 No [id number] PAIN 1 tablet DAILY 1 tablet DAILY (route: oral) Med Classific ation: Analgesic , Anti-infl ammatory or Antipyret ic acetaminoph en 500 mg tablet 2022-04 00:00: 00 Yes [id number] PAIN 2 tablet 3 TIMES DAILY 2 tablet 3 TIMES DAILY (route: oral) Med Classific ation: Analgesic , Anti-infl ammatory or Antipyret ic amlodipine 5 mg tablet 2022-04 00:00: 00 Yes [id number] HTN 1 tablet DAILY 1 tablet DAILY (route: oral) Med Classific ation: Cardiovas cular Therapy Agents aspirin 81 mg tablet,etelvina yed release 2022-04 00:00: 00 Yes [id number] HEART HEALTH 1 tablet DAILY 1 tablet DAILY (route: oral) Med Classific ation: Hematolog ical Agents coenzyme Q10 10 mg capsule 2022-04 00:00: 00 Yes [id number] SUPPLEMENT 1 capsule DAILY 1 capsule DAILY (route: oral) Med Classific ation: Alternati ve Therapy gabapentin 300 mg capsule 2022-04 00:00: 00 Yes [id number] NERVE PAIN 1 capsule DAILY 1 capsule DAILY (route: oral) Med Classific ation: Central Nervous System Agents hydrochloro thiazide 25 mg tablet 2022-04 00:00: 00 Yes [id number] DIURETIC 1 tablet DAILY 1 tablet DAILY (route: oral) Med Classific ation: Cardiovas cular Therapy Agents meclizine 12.5 mg tablet 2022-04 00:00: 00 Yes [id number] VERTIGO 1 tablet 2 TIMES DAILY 1 tablet 2 TIMES DAILY (route: oral) Med Classific ation: Gastroint estinal Therapy Agents metoprolol succinate ER 50 mg tablet,exte nded release 24 hr 2022-04 00:00: 00 Yes [id number] HTH 1 tablet DAILY 1 tablet DAILY (route: oral) Med Classific ation: Cardiovas cular Therapy Agents Polytrim 10,000 unit-1 mg/mL eye drops 2022-04 00:00: 00 Yes [id number] INFECTION 1 drops 4 TIMES DAILY 1 drops 4 TIMES DAILY (route: ophthalmic (eye)) Med Classific ation: Ophthalmi c Agents simvastatin 20 mg tablet 2022-04 00:00: 00 Yes [id number] CHOLESTEROL 1 tablet DAILY 1 tablet DAILY (route: oral) Med Classific ation: Cardiovas cular Therapy Agents Vitamin B-12 1,000 mcg tablet 2022-04 00:00: 00 Yes [id number] SUPPLEMENT 1 tablet DAILY 1 tablet DAILY (route: oral) Med Classific ation: Electroly te Balance-N utritiona l Products Vitamin D3 25 mcg (1,000 unit) capsule 2022-04 00:00: 00 Yes [id number] SUPPLEMENT 1 capsule DAILY 1 capsule DAILY [...] End Date/Time Encounter Type Admission Type Attending [facility] Department Encounter ID Discharge Date Discharge Status Discharge Condition Discharge Reason Percent Goals Met 2023-04-03 00:00:00 2023-05-28 00:00:00 Outpatient NEW ADMISSION MILLY KHAN [facility] [id number] 2023-05-28 00:00:00 DISCHARGE TO HOME OR SELF CARE INDEPENDEN T IN THE HOME HH OR PAL- GOALS MET 100.00
--- OUTSIDE RECORDS SUMMARY | 2024-04-19 14:29 | XMS_ITS | Clinical Summary ---
Author Organization Unknown Care Team Providers Care Cena Name Role Phone PO INTERSTATE, LORENVER Unavailable Unavaila thao AGUILAR RN, AZUL Unavailable Unavailable PENDRISS ANALYSIS ENGINEER, MG Unavailable Unavailable MARTINEZ PT, TERESA Unavailable Unavailable MARJ MORTGAGE FUNDER, RUTH ANN Unavailable Unavailable AMENA OT, KENN Unavailable Unavailandrei KHAN RN, MILLY Unavailable Unavailable Payers Payer Name Policy Type Policy Number Effective Date Expira tion Date MEDICARE.NGS.PDGM [id number] Problems Condition Name Condition Details Condition Category [...] BILATERAL LACRIMAL GLANDS Active 2022-04 00:00: 00 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 Active 2022-04 00:00: [...] capsule,del ayed release 2022-04 00:00: 00 Yes [id number] GERD 1 capsule DAILY 1 capsule DAILY (route: oral) Med Classific ation: Gastroint estinal Therapy Agents oxycodone 5 mg tablet 2022-04 00:00: 00 04-02 23:59 :00 No [id number] PAIN 1 tablet DAILY 1 tablet DAILY (route: oral) Med Classific ation: Analgesic , Anti-infl ammatory or Antipyret ic acetaminoph en 500 mg tablet 2022-04 00:00: 00 Yes [id number] PAIN 2 tablet 3 TIMES DAILY 2 tablet 3 TIMES DAILY (route: oral) Med Classific ation: Analgesic , Anti-infl ammatory or Antipyret ic amlodipine 5 mg tablet 2022-04 00:00: 00 Yes [id number] HTN 1 tablet DAILY 1 tablet DAILY (route: oral) Med Classific ation: Cardiovas cular Therapy Agents aspirin 81 mg tablet,etelvina yed release 2022-04 00:00: 00 Yes [id number] HEART HEALTH 1 tablet DAILY 1 tablet DAILY (route: oral) Med Classific ation: Hematolog ical Agents coenzyme Q10 10 mg capsule 2022-04 00:00: 00 Yes [id number] SUPPLEMENT 1 capsule DAILY 1 capsule DAILY (route: oral) Med Classific ation: Alternati ve Therapy gabapentin 300 mg capsule 2022-04 00:00: 00 Yes [id number] NERVE PAIN 1 capsule DAILY 1 capsule DAILY (route: oral) Med Classific ation: Central Nervous System Agents hydrochloro thiazide 25 mg tablet 2022-04 00:00: 00 Yes [id number] DIURETIC 1 tablet DAILY 1 tablet DAILY (route: oral) Med Classific ation: Cardiovas cular Therapy Agents meclizine 12.5 mg tablet 2022-04 00:00: 00 Yes [id number] VERTIGO 1 tablet 2 TIMES DAILY 1 tablet 2 TIMES DAILY (route: oral) Med Classific ation: Gastroint estinal Therapy Agents metoprolol succinate ER 50 mg tablet,exte nded release 24 hr 2022-04 00:00: 00 Yes [id number] HTH 1 tablet DAILY 1 tablet DAILY (route: oral) Med Classific ation: Cardiovas cular Therapy Agents Polytrim 10,000 unit-1 mg/mL eye drops 2022-04 00:00: 00 Yes [id number] INFECTION 1 drops 4 TIMES DAILY 1 drops 4 TIMES DAILY (route: ophthalmic (eye)) Med Classific ation: Ophthalmi c Agents simvastatin 20 mg tablet 2022-04 00:00: 00 Yes [id number] CHOLESTEROL 1 tablet DAILY 1 tablet DAILY (route: oral) Med Classific ation: Cardiovas cular Therapy Agents Vitamin B-12 1,000 mcg tablet 2022-04 00:00: 00 Yes [id number] SUPPLEMENT 1 tablet DAILY 1 tablet DAILY (route: oral) Med Classific ation: Electroly te Balance-N utritiona l Products Vitamin D3 25 mcg (1,000 unit) capsule 2022-04 00:00: 00 Yes [id number] SUPPLEMENT 1 capsule DAILY 1 capsule DAILY [...] 2023-05-28 00:00:00 Outpatient NEW ADMISSION MILLY KHAN [facility] [id number] 2023-05-28 00:00:00 DISCHARGE TO HOME OR SELF CARE INDEPENDEN T IN THE HOME HH OR PAL- GOALS MET 100.00
== END 2024-04-19 14:51 | disposition home or self-care (01) ==
PROVIDERS: PCP Internal Medicine; Visit Provider Internal Medicine Cardiovascular Disease
DX: I48.19 Other persistent atrial fibrillation (principal); Z95.0 Presence of cardiac pacemaker; I10 Essential (primary) hypertension
CPT/HCPCS: 93280; 99214; G2211

== ENCOUNTER 2024-05-02 12:50 | Outpatient (REF) | payer MEDICARE, SELFPAY ==
[2024-05-02 17:48] LABS: Urine Cytology See Pathology rpt
== END 2024-05-02 12:51 | disposition home or self-care (01) ==
LOC: HO.LAB 12:50
PROVIDERS: PCP Internal Medicine; Visit Provider Urology
DX: N39.0 Urinary tract infection, site not specified (principal); Z13.9 Encounter for screening, unspecified
CPT/HCPCS: 88112

== ENCOUNTER 2024-05-02 12:50 | Outpatient (AMB) | payer MEDICARE, SELFPAY ==
--- NOTE | 2024-05-02 13:02 | A.OFFVIS_ITS ---
Intake Visit Reasons: cysto(Bladder Ca) Intake Note: Patient is present for Cystoscopy Urology Medication:VITAMIN B12 Antibiotic Allergy:NONE Blood Thinner:APIXABAN Lot:[id number] Exp:02/13/27 Order Manager Required: No Allergies No Known Allergies [No Known Allergies*] Allergy (Verified 05/04/24 14:26) HPI Comments Details: Gricelda is a pleasant female. She is a patient of Dr. Naik. She seen for the following urologic conditions - bladder cancer high-grade superficial Here for interval surveillance Bladder appears stable Last upper tract imaging 2019 Will consider Bladder cancer initial diagnosis February 2019 - last TURBT September 2021 high-grade Bladder cancer diagnosed TURBT December 2019 - high-grade noninvasive Further follow-up was postponed secondary to COVID Bladder procedures - December 2019 TURBT - June 2020 TURBT high-grade noninvasive - January 2021 TURBT high-grade noninvasive - 10/01 TURBT high-grade noninvasive - 08/03 TURBT low-grade multifocal Cystoscopy - 08/02 NAD, 03/04 NAD Adjuvant therapy - June 2020 - induction gemcitabine, February 2021 repeat induction gemcitabine - Boost 01/01 gemcitabine, 05/04 gemcitabine, 10/02 gemcitabine , 08/03 induction with mitomycin-C and cytarabine Cytology - 01/01 NAD, 05/04 NAD PFSH Medical History Paroxysmal atrial fibrillation Pedal edema Removal of staple Visit for suture removal Complicated urinary tract infection Dysphagia Screening for breast cancer Abnormal ultrasound of breast Abnormal mammogram of left breast Multiple falls Physical deconditioning Breast cancer, left Breast cancer Chronic renal insufficiency HTN (hypertension) Cardiac pacemaker in situ AV block Leg edema Screening for diabetes mellitus On beta jake at home Arthritis Vertigo MARIELA (obstructive sleep apnea) Sick sinus syndrome Peripheral vascular disease Menieres disease Urinary bladder cancer Obesity Gout GERD (gastroesophageal reflux disease) Hypercholesterolemia Surgical History History of lumpectomy of left breast (03/10/23) History of esophagogastroduodenoscopy (EGD) S/P cardiac pacemaker procedure Hx of colonoscopy History of cystoscopy S/P MARION-BSO (total abdominal hysterectomy and bilateral salpingo-oophorectomy) History of cataract surgery History of knee replacement History of tonsillectomy History of appendectomy History of cholecystectomy Family History Father Stroke Mother Heart disease Social History Household Members: None Housing: Apartment Are you a primary children's zoo caretaker to a significant other at home: No Do you presently have visiting nurse or other home services: No Alcohol intake: current Alcohol intake frequency: does not drink Patient Tobacco Use Status: Former Tobacco user Tobacco use type: Cigarette e-Cigarette/Vaping Use: Never Used Second Hand Smoke Exposure: No Advance Directives Date on File: 09/15/21 service: No Current occupational status: retired Cognitive needs: No Hearing needs: Yes Vision needs: Yes Office Procedures Cystoscopy Consent Discussed risk and benefit or proposed procedure with the patient. Information consent for procedure given to the patient. Discussed technical aspects, risks, benefits and alternatives in full. Addressed all of the patient's questions and concerns regarding the procedure. The patient demonstrated knowledge and understanding. They wish to proceed with this procedure. Preparation The patient was prepped in the usual manner. A paste up copy camera operator was present and in the room. Genitalia was prepped with betadine solution in a sterile manner. Lidocaine Jelly 2% was placed into the urethra and 16Fr flexible Olympus cystoscope was inserted into the meatus after adequate lubrication. Procedure Meatus normal position Urethra normal Bladder examination with retroflexion of cystoscope Bladder Orifices normal shape and position Trigone normal Bladder Capacity normal Trabeculations mild Cellule Formation - Diverticulum Formation - Mucosal Erythema - Bladder Tumor - [id number] DISPOSABLE SCOPE URO-G FLEXIBLE SCOPE Procedure code (CPT) selection complete Office Meds lidocaine HCl 2 % mucosal jelly in applicator Performing Provider: Francisco Dowell MD Performing Location: [facility] Administered by: Korey Pedro LPN on 05/02/24 13:20 Dose Route Admin Location Dispensed Lot Number Expiration Date [facility] [employer] Manager 10 mL intra-urethral 10 mL nitrofurantoin monohydrate/macrocrystals 100 mg capsule Performing Provider: Francisco Dowell MD Performing Location: [facility] Administered by: Korey Pedro LPN on 05/02/24 13:20 Dose Route Admin Location Dispensed Lot Number Expiration Date [facility] [employer] Manager 100 mg PO 1 cap Results AMB Urinalysis, Automated UA Leukoctes 125 Stephanie/uL Last Edit by KIKI Carias on 05/02/24 13:18 UA Nitrite Negative Last Edit by Morro Callahan [facility] on 05/02/24 13:18 UA Urobilinogen 0.2 mg/dL Last Edit by Morro Callahan [facility] on 05/02/24 13:1 8 UA Protein 30 mg/dL Last Edit by Morro Callahan [facility] on 05/02/24 13:18 UA pH 5.5 Last Edit by Morro Callahan [facility] on 05/02/24 13:18 UA Blood 200 Dc/uL Last Edit by Morro Callahan [facility] on 05/02/24 13:18 UA Specific [place] 1.025 Last Edit by Morro Callahan [facility] on 05/02/24 13: 18 UA Ketone Negative Last Edit by Morro Callahan [facility] on 05/02/24 13:18 UA Bilirubin 1 mg/dL Last Edit by Morro Callahan [facility] on 05/02/24 13:18 UA Glucose 0 mg/dL Last Edit by Morro Callahan [facility] on 05/02/24 13:18 Results Reviewed Results Reviewed: Laboratory Last Values Urine pH (Auto) 5.5 05/02/24 13:18 Specific [place] (Auto) 1.025 05/02/24 13:18 Urine Protein (Auto) 30 mg/dL 05/02/24 13:18 Glucose (UA)(Auto) 0 mg/dL 05/02/24 13:18 Urine Ketones (Auto) Negative 05/02/24 13:18 Urine Blood (Auto) 200 Dc/uL 05/02/24 13:18 Urine Nitrite (Auto) Negative 05/02/24 13:18 Urine Bilirubin (Auto) 1 mg/dL 05/02/24 13:18 Urine Urobilinogen (Auto) 0.2 mg/dL 05/02/24 13:18 Leukocyte Esterase (Auto) 125 Stephanie/uL 05/02/24 13:18 Assessment & Plan Assessment & Plan (1) Urinary bladder cancer: Comment: TURBT superficial high-grade Dr. Mzea TURBT Dr. 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, 06/30 HG Superficial September 2021 TURBT and gemcitabine installation Code(s): C67.9 - Malignant neoplasm of bladder, unspecified Category: Medical Qualifiers: Bladder location: unspecified site Qualified Code(s): C67.9 - Malignant neoplasm of bladder, unspecified Plan Bladder stable Orders: Orders AMB Urinalysis Automated 05/02/24 Z13.9 - Encounter for screening, unspecified AMB Cystoscopy 05/02/24 C67.9 - Malignant neoplasm of bladder, unspecified Urine Cytology 05/02/24 N39.0 - Urinary tract infection, site not specified Medications: New methenamine hippurate 1 g PO DAILY 90 tabs 1RF inflammed bladder 90 days C67.9 - Malignant neoplasm of bladder, unspecified Patient Instructions: This note is constructed using voice recognition software. While every effort has been made to ensure accuracy core filer errors may have been included. Imaging studies, laboratory and physical exam results were discussed and reviewed in detail. No major barriers to patient understanding were identified. An opportunity to ask questions regarding the treatment plan was provided. All questions were answered. The patient expressed understanding and agreement with the above treatment plan. The patient is aware they should contact our office by phone for worsening of their current condition or the appearance of new urologic symptoms. Compliance is encouraged with any medications and followup testing that is ordered. It is a privilege to participate in the urologic care of your patient. If you have any questions or concerns regarding treatment for the above conditions, or other urologic issues, please do not hesitate to contact me. The office telephone contact is [phone]. Sincerely, Dr Francisco Dowell MD, [facility] - Urology Compassionate Specialist Care for the Genitourinary System Coding Level of Care Code Est Pt Level 3 (88995) Diagnoses Malignant neoplasm of urinary bladder, unspecified site C67.9 Bladder location: unspecified site CPT Codes Cystoscopy - CPT: 59517-[id number] ([id number])
--- OUTSIDE RECORDS SUMMARY | 2024-05-02 14:27 | XMS_ITS ---
Author Organization [facility] Address Unknown Problems Problem Status Start Date End Date MUSCLE WASTING AND ATROPHY, NOT ELSEWHERE CLASSIFIED, MULTIPLE SITES (Primary) (M62.59 - ICD-10-CM) ACTIVE 03/29/2023 TRAUMATIC ISCHEMIA OF MUSCLE , SUBSEQUENT ENCOUNTER (T79.6XXD - ICD-10-CM) ACTIVE 03/29/2023 COVID-19 (U07.1 - ICD-10-CM) ACTIVE 03/31/2023 RHABDOMYOLYSIS (M62.82 - ICD-10-CM) ACTIVE 03/29 CHRONIC KIDNEY DISEASE, STAG E 4 (SEVERE) (N18.4 - ICD-10-CM) ACTIVE 03/29/2023 ESSENTIAL (PRIMARY) HYPERTENSION (I10 - ICD-10-CM) ACT ANNY 03/29/2023 HYPOKALEMIA (E87.6 - ICD-10-CM) ACTIVE 3 UNSPECIFIED ABNORMALITIES OF GAIT AND MOBILITY (R26.9 - ICD-10-CM) ACTIVE 03/29/2023 OTHER LACK OF COORDINATION (R27.8 - ICD-10-CM) ACTIVE 03/29/2023 UNSPECIFIED LACK OF COORDINATION (R27.9 - ICD-10-CM) A CTIVE 03/29/2023 UNSPECIFIED FALL, SUBSEQUENT ENCOUNTER (W19.XXXD - ICD-10-CM) ACTIVE 03/29/2023 REPEATED FALLS (R29.6 - ICD-10-CM) ACTIVE 2022 OBSTRUCTIVE SLEEP APNEA (LINDSEY LT) (PEDIATRIC) (G47.33 - ICD-10-CM) ACTIVE 03/29/2023 PERIPHERAL VASCULAR DISEASE, UNSPECIFIED (I73.9 - ICD-10-CM) ACTIVE 03/29/2023 PRESENCE OF CARDIAC PACEMAKER (Z95.0 - ICD-10-CM) ACTI VE 03/29/2023 VERTIGO OF CENTRAL ORIGIN (H81.4 - ICD-10-CM) ACTIVE 03/29/2023 SICK SINUS SYNDROME (I49.5 - ICD-10-CM) ACTIVE 1 05/30/2022 MENIERE'S DISEASE, UNSPECIFIED EAR (H81.09 - ICD-10-CM ) ACTIVE 03/29/2023 GASTRO-ESOPHAGEAL REFLUX DIS EASE WITHOUT ESOPHAGITIS (K21.9 - ICD-10-CM) ACTIVE 03/29/2023 Encounters Encounter Performer Performer Role Encounter Diagnoses Location Date Discharge - Discharged / Transferred to home under care of organized home health service organization - [facility] - Private home/apt. with home health services [facility] 3 03:10 pm EST - 3 11:26 am EST Immunizations Vaccine Date Influenza 01/12/2023 12:00 am EDT (COVID-19) Pfizer Original Primary Dose Vaccine 2 of 2 05/22/2020 12:00 am EST (COVID-19) Pfizer Original Primary Dose Vaccine 1 of 2 05/01/2020 12:00 am EST (COVID-19) Pfizer Original Booster Vacci ne 07/30/2021 12:00 am EDT (COVID-19) Pfizer Original Booster Vacci ne 02/04/2021 12:00 am EDT (COVID-19) Pfizer Bivalent Vaccine 09/25 12:00 am EDT (Tetanus, Diphtheria, and Acellular Pert ussis) Tdap 01/08/2023 12:00 am EDT (Pneumococcal) PCV20- Conjugate 20-melida t Vaccine 02/15/2023 12:00 am EST Social History
== END 2024-05-02 13:41 | disposition home or self-care (01) ==
PROVIDERS: PCP Internal Medicine; Visit Provider Urology
DX: C67.9 Malignant neoplasm of bladder, unspecified (principal); Z13.9 Encounter for screening, unspecified
CPT/HCPCS: 52000; 99213

== ENCOUNTER 2024-05-04 14:17 | Outpatient (AMB) | payer MEDICARE, SELFPAY ==
--- NOTE | 2024-05-04 14:19 | A.OFFPC_ITS ---
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 Required: No Accompanied by: Friend-Beth Allergies No Known Allergies [No Known Allergies*] Allergy (Verified 05/04/24 14:26) Tobacco use date assessed: 05/04/24 Fall risk assessment: No Falls in past year Last assessed Fall Risk: 05/04/24 Dental Screening Dental Screen Date: 05/04/24 Did you have a dental visit in the last 12 months?: Yes Did you have a dental problem in the last 6 months where you did not have access to dental care?: No Was dental information given to patient?: Patient has dentist HPI 3 Month F/U HPI Details The patient is an 88-year-old female presenting with a request for medication management and a discussion regarding the use of blood thinners in the context of recent atrial fibrillation. The patient has been in atrial fibrillation for approximately one month, diagnosed by her provider network mgr following a pacemaker reading, and was subsequently started on Eliquis. She has a pacemaker in situ. The use of Eliquis has been complicated by blood in the urine and episodes of epistaxis following initiation of the medication, which thins the blood and predisposes to bleeding easily from minor trauma. The patient has a history of a head laceration resulting from a fall. During the fall, there was substantial bleeding at the time when she was not on Eliquis. The patient reports using a walker due to unsteadiness, and she notes a concern about the increased risk of severe bleeding upon falls while on blood thinners versus the risk of stroke from atrial fibrillation. She has noted swelling in the feet, which may be a side effect of her amlodipine as suggested during the visit. She does not regularly check her blood pressure but reports a previous good reading taken by a caregiver. She is on diuretics but experiences swelling despite medication. The patient mentioned a sore toe causing discomfort while wearing shoes, and she noted she wears open shoes at home to mitigate this. Recently, a thyroid nodule was identified incidentally on imaging; she has a thyroid ultrasound pending to evaluate this. The patient has a history of spinal spondylosis contributing to her negligence of neck posture, leading to neck cracking and occasional pain. [facility] Medical History Paroxysmal atrial fibrillation Pedal edema Removal of staple Visit for suture removal Complicated urinary tract infection Dysphagia Screening for breast cancer Abnormal ultrasound of breast Abnormal mammogram of left breast Multiple falls Physical deconditioning Breast cancer, left Breast cancer Chronic renal insufficiency HTN (hypertension) Cardiac pacemaker in situ AV block Leg edema Screening for diabetes mellitus On beta jake at home Arthritis Vertigo MARIELA (obstructive sleep apnea) Sick sinus syndrome Peripheral vascular disease Menieres disease Urinary bladder cancer Obesity Gout GERD (gastroesophageal reflux disease) Hypercholesterolemia Surgical History History of lumpectomy of left breast (03/10/23) History of esophagogastroduodenoscopy (EGD) S/P cardiac pacemaker procedure Hx of colonoscopy History of cystoscopy S/P MARION-BSO (total abdominal hysterectomy and bilateral salpingo-oophorectomy) History of cataract surgery History of knee replacement History of tonsillectomy History of appendectomy History of cholecystectomy Family History Father Stroke Mother Heart disease Social History Household Members: None Housing: Apartment Are you a primary healthcare social worker to a significant other at home: No Do you presently have visiting nurse or other home services: No Alcohol intake: current Alcohol intake frequency: does not drink Patient Tobacco Use Status: Former Tobacco user Tobacco use type: Cigarette e-Cigarette/Vaping Use: Never Used Second Hand Smoke Exposure: No Advance Directives Date on File: 09/15/21 service: No Current occupational status: retired Cognitive needs: No Hearing needs: Yes Vision needs: Yes Questionnaire PHQ-9 Over the last 2 weeks, how often have you been bothered by any of the following problems? 1. Little interest or pleasure in doing things: not at all 2. Feeling down, depressed, or hopeless: not at all 3. Trouble falling or staying asleep, or sleeping too much: not at all 4. Feeling tired or having little energy: not at all 5. Poor appetite or overeating: not at all 6. Feeling bad about yourself - or that you are a failure or have let yourself or your family down: not at all 7. Trouble concentrating on things, such as reading the newspaper or watching television: not at all 8. Moving or speaking so slowly that other people could have noticed. Or the opposite - being so fidgety or restless that you have been moving around a lot more than usual: not at all 9. Thoughts that you would be better off or of hurting yourself in some way: not at all Total score: 0 Depression Screening Interpretation: Negative Depression Screening Done: Yes 63292 - PHQ-9 Billing: Yes Source: Developed by Drs. Wilver Hightower, Tanya Bardales, Thomas Perry and colleagues, with an educational mike from [employer] Thrive Questionnaire Date Thrive assessed: 05/04/24 I am a: Patient What is your living situation today?: I have a steady place to live Within the past 12 months, did the food you bought not last and you didn't have the money to get more?: Never true Within the past 12 months, did you worry whether your food would run out before you got money to buy more?: Never true Do you have trouble paying for medicines?: No Do you have trouble getting transportation to medical appointments?: No Do you have trouble paying your heating and electricity bill?: No Do you have trouble taking care of your child, family member or friend?: No Do you have trouble with day-to-day activities such as bathing, preparing meals, shopping, managing finances, etc.?: No Are you currently unemployed and looking for a job?: No Are you interested in more education?: No Please select the resources that you would like help with: None Currently or been in a relationship where the following occur: No concerns reported THRIVE Score: 0 AUDIT C Alcohol Use Questionnaire (AUDIT-C) 1. How often do you have a drink containing alcohol?: Monthly or less 2. How many drinks containing alcohol do you have on a typical day when you are drinking?: 1 or 2 3. How often do you have six or more drinks on one occasion?: Never Total Score: 1 DESI-7 AMB Questionnaire DESI-7 Date DESI - 7 assessed: 05/04/24 Feeling nervous, anxious, or on edge: 0 = Not at all Not being able to stop or control worryin = Not at all Worrying too much about different things: 0 = Not at all Trouble relaxin = Not at all Being so restless that it is hard to sit still: 0 = Not at all Becoming easily annoyed or irritable: 0 = Not at all Feeling afraid as if something awful might happen: 0 = Not at all Total DESI-7 score (0-4 normal; 5-9 mild; 10-14 moderate; 15-21 severe): 0 Source: Developed by Drs. Wilver Hightower, Tanya Bardales, Thomas Perry and colleagues, with an educational mike from [employer] DESI-7 Assessment Billing DESI-7 Assessment Tool: DESI-7 Assessment 02889 Physical exam (Primary Care) Vital Signs: Last Vital Signs Temp 97.1 F 05/04/24 14:20 Pulse 89 05/04/24 14:20 BP 130/60 05/04/24 14:20 Pulse Ox 98 05/04/24 14:20 Oxygen Delivery Method Room Air 05/04/24 14:20 BMI result Body Mass Index 31.3 Tobacco/Smoking Status: Tobacco use Status Tobacco use date assessed 05/04/24 05/04/24 14:27 Patient Tobacco Use Status Former Tobacco user 05/04/24 14:27 Tobacco use type Cigarette 05/04/24 14:27 e-Cigarette/Vaping Use Never Used 05/04/24 14:27 PHQ-9: PHQ-9 Score PHQ-9: Total score 0 05/04/24 14:45 Depression Screening Interpretation: Negative Thrive Assessment: Date of Thrive Assessment Date Thrive assessed 05/04/24 05/04/24 14:27 Currently or been in a relationship where the following occur: No concerns reported Const General: alert; No acute distress Eyes Conjunctivae: conjunctivae normal Resp Auscultation: clear to auscultation bilaterally Cardio Rate: regular rate Rhythm: regular rhythm GI Inspection: Yes normal to inspection Extrem General: Yes normal to inspection and No edema Coding Level of Care Code Est Pt Level 4 (88583) Complex EM visit Add On G2211 Diagnoses Persistent atrial fibrillation I48.19 HTN (hypertension) I10 Invasive ductal carcinoma of left breast C50.912 Essential hypertension I10 Gastroesophageal reflux disease without esophagitis K21.9 Esophagitis presence: without esophagitis Hypercholesterolemia E78.00 Malignant neoplasm of urinary bladder, unspecified site C67.9 Bladder location: unspecified site Thyroid nodule E04.1 Additional Codes DESI-7 Assessment Billing - DESI-7 Assessment Tool: DESI-7 Assessment 88612 ([id number]) PHQ-9 - 70390 - PHQ-9 Billing: Yes ([id number]) Assessment & Plan Assessment & Plan (1) Persistent atrial fibrillation: Code(s): I48.19 - Other persistent atrial fibrillation Category: Medical (2) HTN (hypertension): Code(s): I10 - Essential (primary) hypertension Category: Medical (3) Invasive ductal carcinoma of left breast: Comment: Left breast lumpectomy February 2023 Code(s): C50.912 - Malignant neoplasm of unspecified site of left female breast Category: Medical (4) Essential hypertension: Code(s): I10 - Essential (primary) hypertension Category: Medical (5) GERD (gastroesophageal reflux disease): Code(s): K21.9 - Gastro-esophageal reflux disease without esophagitis Category: Medical Qualifiers: Esophagitis presence: without esophagitis Qualified Code(s): K21.9 - Gastro-esophageal reflux disease without esophagitis (6) Hypercholesterolemia: Code(s): E78.00 - Pure hypercholesterolemia, unspecified Category: Medical (7) Urinary bladder cancer: Comment: TURBT superficial high-grade Dr. Meza TURBT Dr. 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, 06/30 HG Superficial September 2021 TURBT and gemcitabine installation Code(s): C67.9 - Malignant neoplasm of bladder, unspecified Category: Medical Qualifiers: Bladder location: unspecified site Qualified Code(s): C67.9 - Malignant neoplasm of bladder, unspecified (8) Thyroid nodule: Code(s): E04.1 - Nontoxic single thyroid nodule Category: Medical Plan - Continue monitoring for adverse effects of Eliquis, especially in terms of bleeding risk. Consider balance of benefit versus risk, discussing long-term management with cardiology. - Manage atrial fibrillation under anticoagulation, given the risk of stroke. - Advise wearing compression stockings daily to manage edema and prevent exacerbation. - Recommend elevating legs during rest to reduce edema. - Discontinue hydrochlorothiazide due to minimal effect and current dose. - Suggest patient increases oral hydration to counteract potential dehydration effects from diuretics. - Soreness and swelling of toes assessed; continue to wear open footwear at home and avoid trauma. - Evaluate further on long-term management for hypertension with regular blood pressure monitoring if pressures are consistently low. - Discuss the need for removal or diminution of amlodipine if edema worsens or blood pressure remains low. - Thyroid nodule: Proceed with planned thyroid ultrasound and follow up on the need for further investigations based on results. - Elementary Principal on safe practices to minimize risk of falls and remind on seasonal infection control. - Coordination with cardiology and among primary care providers to ensure the continued appropriateness of current medication regimen. Orders: Orders US thyroid Today E04.1 - Nontoxic single thyroid nodule Medications: Refilled gabapentin 300 mg PO BEDTIME 90 caps 3RF amlodipine 5 mg PO DAILY 90 tabs 3RF nystatin Apply 2 times per day thin coat of topical powder to affected area 1 appl topical BID 60 grams 0RF B49 - Unspecified mycosis metoprolol succinate ER 50 mg PO DAILY 90 tabs 2RF 90 days I10 - Essential (primary) hypertension
[2024-05-04 14:20] VITALS: BP 130/60; PULSE 89; TEMP 36.2; O2SAT 98; BMI 31.3
== END 2024-05-04 15:09 | disposition home or self-care (01) ==
PROVIDERS: PCP Internal Medicine; Visit Provider Internal Medicine
DX: I48.19 Other persistent atrial fibrillation (principal); C50.912 Malignant neoplasm of unspecified site of left female breast; C67.9 Malignant neoplasm of bladder, unspecified; I10 Essential (primary) hypertension; K21.9 Gastro-esophageal reflux disease without esophagitis; E78.00 Pure hypercholesterolemia, unspecified; E04.1 Nontoxic single thyroid nodule

== ENCOUNTER → 2024-05-04 14:17 | Outpatient (BNVA) | payer MEDICARE, SELFPAY | PROVIDERS: PCP Internal Medicine; Visit Provider Internal Medicine | DX: I48.19 Other persistent atrial fibrillation (principal); I10 Essential (primary) hypertension; C50.912 Malignant neoplasm of unspecified site of left female breast; K21.9 Gastro-esophageal reflux disease without esophagitis; E78.00 Pure hypercholesterolemia, unspecified; C67.9 Malignant neoplasm of bladder, unspecified; E04.1 Nontoxic single thyroid nodule | CPT/HCPCS: 96127; 99212 ==

== ENCOUNTER 2024-05-22 13:55 | Outpatient (REF) | payer MEDICARE, SELFPAY | END 2024-05-22 13:56 | disposition home or self-care (01) | LOC: HO.US 13:55 | PROVIDERS: PCP Internal Medicine; Visit Provider Internal Medicine | DX: E04.1 Nontoxic single thyroid nodule (principal) | CPT/HCPCS: 76536 ==

== ENCOUNTER → 2024-05-22 13:57 | Outpatient (BNV) | payer MEDICARE, SELFPAY | PROVIDERS: PCP Internal Medicine; Visit Provider Radiology Diagnostic Radiology | DX: E04.1 Nontoxic single thyroid nodule (principal) | CPT/HCPCS: 76536 ==

== ENCOUNTER 2024-06-26 04:00 | Emergency (ER) | payer MEDICARE, SELFPAY ==
--- NOTE | ~2024-06-26 | CT_ITS ---
CLINICAL HISTORY: fall on Eliquis CT cervical spine without contrast Comparison: CT/SR - CT CERVICAL SPINE WO IV CON - 03/17/24 16:52 EST Findings: Normal vertebral body alignment. Multilevel disc height loss with reactive endplate changes and osteophyte formation multilevel facet hypertrophy. No acute fractures or dislocations. Visualized intracranial contents are unremarkable. Unchanged 3.3 cm right thyroid nodule. No consolidation or effusion at the lung apices. IMPRESSION: Multilevel degenerative change without evidence acute fracture or alignment abnormality. Unchanged large right thyroid nodule. Thyroid ultrasound on a nonemergent basis is recommended. This document has been electronically signed by: Teressa Tsai MD on 06/26/2024 05:31:58
--- NOTE | ~2024-06-26 | CT_ITS ---
CLINICAL HISTORY: fall on ROKT CT head without contrast Comparison: CT/SR - CT HEAD/BRAIN WO IV CON - 03/17/24 16:[address]/SR - CT HEAD/BRAIN WO IV CON - 12/24/23 17:07 EDT Findings: No intra-axial mass, midline shift, hydrocephalus, or acute hemorrhage. Mild global volume loss. There is no sinus or mastoid fluid. The orbits are unremarkable. No skull fracture. IMPRESSION: 1. No acute intracranial hemorrhage or skull fracture. 2. Mild global volume loss. This document has been electronically signed by: Teressa Tsai MD on 06/26/2024 05:31:34
[2024-06-26 04:06] VITALS: BP 115/60; PULSE 80; O2SAT 97
[2024-06-26 04:11] VITALS: BP 106/52; PULSE 69; RESP 16; TEMP 36.6; O2SAT 96; BMI 33.4
--- NOTE | 2024-06-26 04:19 | PC.NURSE ---
MD Holly made aware of fall +HS and thinners. labs ordered per verbal order. states will order ct scan of head and neck.
--- NOTE | 2024-06-26 05:02 | ED_ITS ---
HPI - Fall General Chief Complaint: Fall Stated Complaint: FALL Time Seen by Provider: 06/26/24 05:10 Source: patient and EMS Mode of arrival: EMS Limitations: no limitations History of Present Illness ED Provider: DR. Holly HPI Narrative: 89-year-old female came in by ambulance for evaluation after had a mechanical fall. 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 Patient is on Eliquis for paroxysmal AFib. Related Data Home Medications ?Medication ?Instructions ?Recorded ?Confirmed cholecalciferol (vitamin D3) 25 25 mcg PO DAILY 03/11/20 04/19/24 mcg (1,000 unit) capsule coenzyme Q10 100 mg capsule (Co 100 mg PO DAILY 03/11/20 04/19/24 Q-10) polyethylene glycol 3350 17 gram 17 g PO DAILY PRN Constipation 02/24/23 04/19/24 oral powder packet (Miralax) propylene glycol 0.6 % eye drops 1 drp ophthalmic (eye) DAILY PRN 02/24/23 04/19/24 (Systane Balance) Dry Eyes Previous Rx's ?Medication ?Instructions ?Recorded meclizine 25 mg tablet 25 mg PO DAILY #30 tabs 05/05/23 omeprazole 20 mg capsule,delayed 20 mg PO DAILY #90 caps 07/22/23 release simvastatin 20 mg tablet 20 mg PO BEDTIME #90 tabs 10/15/23 apixaban 5 mg tablet (Eliquis) 5 mg PO BID #60 tabs 04/19/24 cyanocobalamin (vitamin B-12) 1,000 mcg PO DAILY #90 caps 04/19/24 1,000 mcg capsule methenamine hippurate 1 gram tablet 1 g PO DAILY inflammed bladder 90 05/02/24 days #90 tabs amlodipine 5 mg tablet 5 mg PO DAILY #90 tabs 05/04/24 gabapentin 300 mg capsule 300 mg PO BEDTIME #90 caps 05/04/24 metoprolol succinate 50 mg 50 mg PO DAILY 90 days #90 tabs 05/04/24 tablet,extended release 24 hr nystatin 100,000 unit/gram topical 1 appl topical BID #60 grams 05/04/24 powder Allergies Allergy/AdvReac Type Severity Reaction Status Date / Time No Known Allergies Allergy Verified 06/26/24 04:13 [No Known Allergies*] Review of Systems 2 Review of Systems: All other systems are reviewed and are negative Constitutional: Reports as per HPI and Reports no additional constitutional complaints Eyes: Reports as per HPI and Reports no additional eye complaints Reports system reviewed and no additional complaints, except as documented Cardiovascular: Reports as per HPI and Reports no additional cardiovascular complaints Respiratory: Reports as per HPI and Reports no additional respiratory complaints Gastrointestinal: Reports as per HPI and Reports no additional gastrointestinal complaints Genitourinary: Reports no additional female genitourinary complaints Musculoskeletal: Reports no additional musculoskeletal complaints Skin/Breast: Reports system reviewed and no additional complaints, except as docu Psychiatric: Reports no additional psychiatric complaints Endocrine: Reports no additional endocrine complaints Hematologic/Lymphatic: Reports no additional hematologic/lymphatic complaints Allergic/Immunologic: Reports no additional allergic/immunologic complaints Reports system reviewed and no additional complaints, except as documented and Reports Abnormal speech present [facility] Past Medical History Medical History Paroxysmal atrial fibrillation Pedal edema Removal of staple Visit for suture removal Complicated urinary tract infection Dysphagia Screening for breast cancer Abnormal ultrasound of breast Abnormal mammogram of left breast Multiple falls Physical deconditioning Breast cancer, left Breast cancer Chronic renal insufficiency HTN (hypertension) Cardiac pacemaker in situ AV block Leg edema Screening for diabetes mellitus On beta jake at home Arthritis Vertigo MARIELA (obstructive sleep apnea) Sick sinus syndrome Peripheral vascular disease Menieres disease Urinary bladder cancer Obesity Gout GERD (gastroesophageal reflux disease) Hypercholesterolemia Surgical History History of lumpectomy of left breast (03/10/23) History of esophagogastroduodenoscopy (EGD) S/P cardiac pacemaker procedure Hx of colonoscopy History of cystoscopy S/P MARION-BSO (total abdominal hysterectomy and bilateral salpingo-oophorectomy) History of cataract surgery History of knee replacement History of tonsillectomy History of appendectomy History of cholecystectomy Family History Family History Father Stroke Mother Heart disease Social History Social History Household Members: None Housing: Apartment Are you a primary point of care specialist to a significant other at home: No Do you presently have visiting nurse or other home services: No Alcohol intake: never Patient Tobacco Use Status: Former Tobacco user Tobacco use type: Cigarette Smoked in Last 30 Days: No e-Cigarette/Vaping Use: Never Used Second Hand Smoke Exposure: No Use of substances other than those prescribed or required for medical reasons: No Advance Directives: Yes Advance Directives on File: Yes Advance Directives Date on File: 09/15/21 service: No Current occupational status: retired Cognitive needs: No Hearing needs: Yes Vision needs: Yes Physical Exam 2 Vital Signs: Vital Signs: Last Vital Signs Temp 97.8 F 06/26/24 04:11 Pulse 69 06/26/24 04:11 Resp 16 06/26/24 04:11 BP 106/52 L 06/26/24 04:11 Pulse Ox 96 06/26/24 04:11 O2 Del Method Room Air 06/26/24 04:11 BMI result Body Mass Index 33.4 Vital signs have been reviewed and appear to be correct. Blood pressure elevated. Heart rate normal. Respiratory rate normal. Temperature normal. Oxygen saturation normal. Appearance: Alert. GCS 15,Oriented X3. No acute distress. Head: Normal external exam. Normocephalic. Atraumatic. No Zazueta signs noted. No raccoon eyes noted Eyes: PERRLA. EOMI. Conjunctiva and sclera normal. Eyelids normal. ENT: TM's Normal. Pharynx normal. Uvula midline. Moist mucous membranes. No trismus noted. No drooling noted. No muffled voice noted. Neck: Normal inspection. Neck supple. FROM. No adenopathy. Thyroid Normal. No meningeal signs. No neck mass noted. CVS: Normal heart rate and rhythm. Heart sound normal. No murmurs noted. Pulses normal throughout. Respiratory: No respiratory distress. Painless inspiration. Breath sounds normal. No wheezes/rales/rhonchi noted. Chest nontender. No accessory muscle usage noted or decreased air movement noted. Abdomen: Soft and nontender. Bowel sounds normal in all 4 quadrants. No distention noted. No organomegaly noted. No visible injury noted. Back: No CVA tenderness. Full range of motion noted. Skin: Skin warm and dry. Normal skin color. Normal skin turgor. No rashes/lesions/lacerations noted. Extremities: No lower extremity edema. Extremities exhibit normal range of motion. Extremities nontender. Neuro: Mental status: Normal attention, orientation, memory, and affect. Cranial nerves: Pupils are equal, round and reactive to light, EOMI, visual palumbo are fall, face is symmetric, facial sensations are normal. Motor examination normal muscle tone, strength to 4 extremities. DTR are +2, planter's are flexor. Sensory exam; normal coordination, no ataxia, gait stable. Cerebellar exam: [id number] and xpsw-[id number] is normal. Extrapyramidal system: No tremors, no rigidity with normal facial expressions. Pronator drift not present Course Reevaluation(s) Reevaluation #1: s/p mechanical fall, unremarkable labs, CT head / cervical spine is unremarkable, patient is able to ambulate in the emergency department will discharge. unable to get hold of her sister to pick her up, will arrange for ambulance transportation. Incidental right thyroid nodule discussed with the patient, patient already had ultrasound and was evaluated by air hammer operator as an outpatient. Time: 07:00 Medical Decision Making Differential Diagnosis Differential Diagnoses: The differential diagnosis associated with the presentation includes ( Syncopal fall, mechanical fall, intracranial bleed, electrolyte derangement severe anemia,) Admission/Observation Consideration of admission/observation: Escalation of care including admission/observation considered Lab Data MDM Lab Attestation statement: I reviewed the patient's lab results. 06/26/24 05:07 06/26/24 05:07 Labs: Lab Results 06/26/24 Range/Units 05:07 WBC 6.3 (4.8-10.8) X10*3/uL RBC 3.96 L (4.20-5.50) X10*6/uL Hgb 11.2 L (12.0-16.0) g/dl Hct 34.0 L (37.0-47.0) % MCV 85.9 (80.0-98.0) fL MCH 28.3 (27.0-33.0) pg MCHC 32.9 (31.0-35.0) g/dl RDW 14.4 (11.0-16.0) % Plt Count 310 (160-400) X10*3/uL MPV 9.6 (9.4-12.3) fL Immature Gran % (Auto) 0.3 (0.0-0.4) % Neut % (Auto) 55.2 (45-73) % Lymph % (Auto) 27.3 (20-40) % Gillespie % (Auto) 13.1 H (2-11) % Eos % (Auto) 3.3 (0-4) % Baso % (Auto) 0.8 (0-2) % Lymph # (Auto) 1.7 (1.2-4.9) X10*3/uL Gillespie # (Auto) 0.8 (0.1-1.2) X10*3/uL Eos # (Auto) 0.2 (0.0-0.4) X10*3/uL Baso # (Auto) 0.1 (0.0-0.2) X10*3/uL Abs Immat Gran (auto) 0.02 (0.00-0.03) X10*3/uL Absolute Neuts (auto) 3.5 (2.0-8.3) x10*3/uL Absolute Nucleated RBC 0.000 (0.0-0.012) X10*3/uL Nucleated RBC % (auto) 0.0 (0.0-0.2) /100WBC PT 29.0 H (10.9-12.4) SEC INR 2.5 H (0.9-1.1) Sodium 139 (135-145) mmol/L Potassium 3.4 (3.3-5.1) mmol/L Chloride 103 (96-108) mmol/L Carbon Dioxide 28 (22-29) mmol/L Anion Gap 11 L (12-20) BUN 43 H (9-16) mg/dL Creatinine 1.76 H (0.5-1.4) mg/dL Estim Creat Clear Calc 21.2 Estimated GFR 27 Random Glucose 93 (60-115) mg/dL Calcium 8.5 D (8.4-10.2) mg/dL Total Bilirubin 0.6 (0.0-1.0) mg/dL AST 33 H (5-31) U/L ALT 12 (0-31) U/L Alkaline Phosphatase 131 H (39-117) U/L Total Protein 6.8 (6.5-8.0) g/dL Albumin 3.2 L (3.5-5.0) g/dL Independent Interpretation I performed an independent interpretation of an: CT Scan ( head/cervical spine: No acute intracranial pathology,Multilevel degenerative change without evidence acute fracture or alignment abnormality. Unchanged large right thyroid nodule. Thyroid ultrasound on a nonemergent basis is recommended.) Radiology Impression Discussion of test interpretation with radiology: I have reviewed the radiologist's reading. Discharge Plan Discharge Clinical Impression: Closed head injury, Accident due to mechanical fall without injury, Right thyroid nodule Patient Disposition: Home, Self-Care Instructions: Head Injury (ED) Additional Instructions: on the CT scan there was incidental finding of right thyroid mass that you need to follow-up with the primary doctor to get an outpatient ultrasound of the thyroid. Prescriptions: No Action meclizine 25 mg tablet 25 mg PO DAILY Qty: 30 0RF omeprazole 20 mg capsule,delayed release(DR/EC) 20 mg PO DAILY Qty: 90 3RF simvastatin 20 mg tablet 20 mg PO BEDTIME Qty: 90 3RF cyanocobalamin (vitamin B-12) 1,000 mcg capsule 1,000 mcg PO DAILY Qty: 90 3RF Eliquis 5 mg tablet 5 mg PO BID Qty: 60 5RF cholecalciferol (vitamin D3) 25 mcg (1,000 unit) capsule 25 mcg PO DAILY coenzyme Q10 [Co Q-10] 100 mg capsule 100 mg PO DAILY amlodipine 5 mg tablet 5 mg PO DAILY Qty: 90 3RF nystatin 100,000 unit/gram powder 1 appl topical BID Qty: 60 0RF Rx Instructions: Apply 2 times per day thin coat of topical powder to affected area gabapentin 300 mg capsule 300 mg PO BEDTIME Qty: 90 3RF metoprolol succinate 50 mg tablet extended release 24 hr 50 mg PO DAILY 90 Days Qty: 90 2RF methenamine hippurate 1 gram tablet 1 g PO DAILY 90 Days Qty: 90 1RF polyethylene glycol 3350 [Miralax] 17 gram powder in packet 17 g PO DAILY PRN (Reason: Constipation) Systane Balance 0.6 % drops 1 drp ophthalmic (eye) DAILY PRN (Reason: Dry Eyes) Referrals: Po,Román Leslie MD [Primary Care Provider] - Print Language: Faroese
[2024-06-26 05:11] LABS: Basophils Absolute Auto 0.1 X10*3/uL (0.0-0.2); Basophils Percent Auto 0.8 % (0-2); Eosinophils Absolute Auto 0.2 X10*3/uL (0.0-0.4); Eosinophils Percent Auto 3.3 % (0-4); Hemoglobin 11.2 g/dl (12.0-16.0); Imm Gran Abs Auto 0.02 X10*3/uL (0.00-0.03); Imm Gran Pct Auto 0.3 % (0.0-0.4); Lymphocytes Absolute Auto 1.7 X10*3/uL (1.2-4.9); Lymphocytes Percent Auto 27.3 % (20-40); MANUAL DIFF FLAG NO; Mean Corpuscular HGB Conc 32.9 g/dl (31.0-35.0); Mean Corpuscular Hemoglobin 28.3 pg (27.0-33.0); Mean Corpuscular Volume 85.9 fL (80.0-98.0); Mean Platelet Volume 9.6 fL (9.4-12.3); Monocytes Absolute Auto 0.8 X10*3/uL (0.1-1.2); Monocytes Percent Auto 13.1 % (2-11); Neutrophils Absolute Auto 3.5 x10*3/uL (2.0-8.3); Neutrophils Percent Auto 55.2 % (45-73); Platelet Count 310 X10*3/uL (160-400); Red Blood Count 3.96 X10*6/uL (4.20-5.50); Red Cell Distribution Width 14.4 % (11.0-16.0); White Blood Count 6.3 X10*3/uL (4.8-10.8)
--- NOTE | 2024-06-26 05:12 | PC.NURSE ---
c-collar cleared by . labs obtained.
[2024-06-26 05:18] LABS: INTERNATIONAL NORM RATIO 2.5 (0.9-1.1)
[2024-06-26 05:25] LABS: Alanine Aminotransferase 12 U/L (0-31); Albumin Level 3.2 g/dL (3.5-5.0); Alkaline Phosphatase 131 U/L (39-117); Anion Gap 11 (12-20); Aspartate Amino Transferase 33 U/L (5-31); Bilirubin Total 0.6 mg/dL (0.0-1.0); Blood Urea Nitrogen 43 mg/dL (9-16); Calcium 8.5 mg/dL (8.4-10.2); Carbon Dioxide 28 mmol/L (22-29); Chloride 103 mmol/L (96-108); Creatinine Clr Calc Pharmacy 21.2; Estimated Glomerular Filt Rate 27; Glucose Random 93 mg/dL (60-115); Potassium 3.4 mmol/L (3.3-5.1); Sodium 139 mmol/L (135-145); Total Protein 6.8 g/dL (6.5-8.0)
--- NOTE | 2024-06-26 06:25 | PC.NURSE ---
pt states uses walker at home. ambulation trial here with walker pt had steady gait. pt states does not have transportation home, antisqueak worker aware for ems transport on discharge.
[2024-06-26 09:03] VITALS: BP 106/52; PULSE 69; RESP 16; TEMP 36.6; O2SAT 96
== END 2024-06-26 09:04 | disposition home or self-care (01) ==
PROVIDERS: Emergency Provider Emergency Medicine; PCP Internal Medicine
DX: S09.90XA Unspecified injury of head, initial encounter (principal); R10.2 Pelvic and perineal pain; I48.0 Paroxysmal atrial fibrillation; R51.9 Headache, unspecified; M54.2 Cervicalgia; W01.0XXA Fall on same level from slipping, tripping and stumbling without subsequent striking against object, initial encounter; Y93.9 Activity, unspecified; Y92.9 Unspecified place or not applicable; Y99.8 Other external cause status; Z79.01 Long term (current) use of anticoagulants; Z79.899 Other long term (current) drug therapy; Z87.891 Personal history of nicotine dependence
CPT/HCPCS: 36415; 70450; 72125; 80053; 85025; 85610; 99284

== ENCOUNTER → 2024-06-26 04:19 | Outpatient (BNV) | payer MEDICARE, SELFPAY | PROVIDERS: Emergency Provider Emergency Medicine; PCP Internal Medicine; Visit Provider Radiology Diagnostic Radiology | DX: M50.30 Other cervical disc degeneration, unspecified cervical region (principal); E04.1 Nontoxic single thyroid nodule; Z79.01 Long term (current) use of anticoagulants; W19.XXXA Unspecified fall, initial encounter | CPT/HCPCS: 70450; 72125 ==

== ENCOUNTER 2024-07-11 14:29 | Outpatient (REF) | payer MEDICARE, SELFPAY | END 2024-07-11 14:30 | disposition home or self-care (01) | LOC: HO.LAB 14:29 | PROVIDERS: PCP Internal Medicine; Visit Provider Student in an Organized Health Care Education/Training Program | DX: E04.1 Nontoxic single thyroid nodule (principal) | CPT/HCPCS: 36415; 84443; 99202 ==

== ENCOUNTER 2024-07-11 14:29 | Outpatient (AMB) | payer MEDICARE, SELFPAY ==
[2024-07-11 14:33] VITALS: BP 104/60; PULSE 76; O2SAT 96; BMI 34.2
--- NOTE | 2024-07-11 14:33 | A.OFFVIS_ITS ---
Vital Signs 07/11/24 14:33 Height 5 ft 1 in Weight 180 lb 12.465 oz BMI 34.2 BP 104/60 Blood Pressure Location Rt brachial Position Sitting Pulse 76 Pulse Source Pulse Oximeter Pulse Oximetry (%) 96 Oxygen Delivery Method Room Air Intake Visit Reasons: Nontoxic single thyroid nodule Intake Note: New patient present today for Nontoxic single thyroid nodule. Glaze Carrier Required: No Accompanied by: Sister Beth Allergies No Known Allergies [No Known Allergies*] Allergy (Verified 07/11/24 14:36) Medication List - Last Reconciled 07/11/24 by Ilaina Schneider MD amlodipine 5 mg PO DAILY apixaban (Eliquis) 5 mg PO BID cholecalciferol (vitamin D3) 25 mcg PO DAILY coenzyme Q10 (Co Q-10) 100 mg PO DAILY cyanocobalamin (vitamin B-12) 1,000 mcg PO DAILY gabapentin 300 mg PO BEDTIME meclizine 25 mg PO DAILY methenamine hippurate 1 g PO DAILY 90 days metoprolol succinate ER 50 mg PO DAILY 90 days nystatin 1 appl topical BID omeprazole 20 mg PO DAILY polyethylene glycol 3350 (Miralax) 17 grams PO DAILY PRN propylene glycol 0.6% (Systane Balance) 1 drp ophthalmic (eye) DAILY PRN simvastatin 20 mg PO BEDTIME HPI Comments Details: 89-year-old female here today for 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 Here with sister Beth Otherwise history significant for left breast cancer s/p lumpectomy 2022 and bladder cancer diagnosed 2019, s/P TURBT 2020 and then chemotherapy over the past 3-4 years . Patient had a cervical spine CT in March 2024 for a fall which showed a hypodense 3 cm lesion in the right thyroid lobe. Ultrasound thyroid from 05/22/2024, I reviewed the images myself which showed a right superior 1 cm, solid hyperechoic taller than wide TR 4 category nodule, a right midpole 0.8 cm TR 3 category nodule, and a right inferior dominant 2.7 cm solid, hypoechoic nodule with microcalcifications, TR 4/TR 5 category. This meets criteria for FNA. Never been on any thyroid medicine. Patient currently denies heat or cold intolerance, diarrhea or constipation, hair loss, , anxiety, mood changes, low energy, changes in appearance of eyes or vision changes, tremors, increased diaphoresis or dry skin. ? No palpitations, has Afib Gained 15 lbs over the past 3-4 months, has initally lost over 30 lbs over the past 3-4 years while she was having chemo Endorses dysphagia with dry foods. Patient denies, pain on swallowing or voice changes or difficulty breathing. Patient denies any history of childhood neck radiation. Denies having ever used lithium, amiodarone or biotin supplements. Patient denies any family history of thyroid cancer or thyroid disease. Physical exam General: sitting comfortably in no acute distress HEENT: normocephalic/atraumatic, moist oral mucosa Neck: supple, symmetrical Cardiac: normal heart sounds Pulm: normal breath sounds B/L, no added breath sounds Abd: not distended, no tenderness Extremities: no edema, no signs of myxedema Laboratory Tests 12/21/23 10:39 TSH 2.28 Free T4 1.02 US THYROID 05/22/24 CLINICAL INFORMATION: Nontoxic single thyroid nodule. COMPARISON: None available. TECHNIQUE: Linear transducer grayscale and color Doppler examination with attention to the region of the thyroid. FINDINGS: SIZE: Measurements of the thyroid lobes and nodules are given in sagittal, anteroposterior and transverse dimensions respectively. Right Thyroid Lobe: 4.5 x 2.1 x 1.7 cm, volume 9.0 mL. Parenchyma: The gland echotexture is homogeneous. Thyroid vascularity is normal. Left Thyroid Lobe: 3.5 x 1.3 x 1.1 cm, volume 3.0 mL. Parenchyma: The gland echotexture is homogeneous. Thyroid vascularity is normal. Isthmus: 0.4 cm in maximum AP dimension. Estimated total number of nodules greater than or equal to 1 cm: 2. Toolmaker Helper nodules are described as follows: 1. Location: Right upper pole. Size: 0.9 x 1.0 x 0.9 cm, volume 0.4 mL. Nodule characteristics: Composition: Solid (2). Echogenicity: Hyperechoic (1). Shape: Taller than wide (3). Margins: Smooth (0). Echogenic Foci: None (0). ACR TI-RADS total points: 6 ACR TI-RADS category: 4 2. Location: Right mid pole. Size: 0.6 x 0.7 x 0.8 cm, volume 0.2 mL. Nodule characteristics: Composition: Solid (2). Echogenicity: Hyperechoic (1). Shape: Not taller than wide (0). Margins: Smooth (0). Echogenic Foci: None (0). ACR TI-RADS total points: 3 ACR TI-RADS category: 3 3. Location: Right lower pole. Size: 2.7 x 2.4 x 2.6 cm, volume 8.9 mL. Nodule characteristics: Composition: Solid/almost completely solid (2). Echogenicity: Cannot be determined (1). Shape: Not taller than wide (0). Margins: Smooth (0). Echogenic Foci: None (0). ACR TI-RADS total points: 3 ACR TI-RADS category: 3 NODES: No lymphadenopathy is seen in the tissue surrounding the thyroid gland. US/US thyroid IMPRESSION: 1. There is a right lower pole 2.7 cm TR category 3 nodule. FNA advised. 2. There is a right upper pole 1.0 cm TR category 4 nodule. Recommend follow-up as per below. 3. There is a 0.8 cm right mid pole TR category 3 nodule. No follow-up recommended. 4. The surrounding thyroid parenchyma is normal. [facility] Medical History (Updated 07/11/24 @ 15:47 by Iliana Schneider MD) Multinodular goiter (nontoxic) Paroxysmal atrial fibrillation Pedal edema Removal of staple Visit for suture removal Complicated urinary tract infection Dysphagia Screening for breast cancer Abnormal ultrasound of breast Abnormal mammogram of left breast Multiple falls Physical deconditioning Breast cancer, left Breast cancer Chronic renal insufficiency HTN (hypertension) Cardiac pacemaker in situ AV block Leg edema Screening for diabetes mellitus On beta jake at home Arthritis Vertigo MARIELA (obstructive sleep apnea) Sick sinus syndrome Peripheral vascular disease Menieres disease Urinary bladder cancer Obesity Gout GERD (gastroesophageal reflux disease) Hypercholesterolemia Surgical History History of lumpectomy of left breast (03/10/23) History of esophagogastroduodenoscopy (EGD) S/P cardiac pacemaker procedure Hx of colonoscopy History of cystoscopy S/P MARION-BSO (total abdominal hysterectomy and bilateral salpingo-oophorectomy) History of cataract surgery History of knee replacement History of tonsillectomy History of appendectomy History of cholecystectomy Family History Father Stroke Mother Heart disease Social History Household Members: None Housing: Apartment Are you a primary customer care associate to a significant other at home: No Do you presently have visiting nurse or other home services: No Alcohol intake: never Patient Tobacco Use Status: Former Tobacco user Tobacco use type: Cigarette e-Cigarette/Vaping Use: Never Used Second Hand Smoke Exposure: No Advance Directives Date on File: 09/15/21 service: No Current occupational status: retired Cognitive needs: No Hearing needs: Yes Vision needs: Yes Physical Exam Vital Signs: Last Vital Signs Pulse 76 07/11/24 14:33 BP 104/60 07/11/24 14:33 Pulse Ox 96 07/11/24 14:33 Oxygen Delivery Method Room Air 07/11/24 14:33 BMI result Body Mass Index 34.2 Assessment & Plan Assessment & Plan (1) Multinodular goiter (nontoxic): Code(s): E04.2 - Nontoxic multinodular goiter Category: Medical Plan: 89-year-old female with no family history of thyroid cancer, with no personal history of head or neck radiation coming in today for 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 Ultrasound thyroid from 05/22/2024, I reviewed the images myself which showed a right superior 1 cm, solid hyperechoic taller than wide TR 4 category nodule, a right midpole 0.8 cm TR 3 category nodule, and a right inferior dominant 2.7 cm solid, hypoechoic nodule with microcalcifications, TR 4/TR 5 category. This meets criteria for FNA. She has mild intermittent dysphagia, nothing significant. I explained that it is common to have thyroid nodules. About 95% of the time these nodules are benign. However if the nodule is > 1 cm in size or suspicious on ultrasound then a fine need aspiration biopsy is recommended. We discussed that a FNAB involves 4-5 passes with a small gauge needle and material obtained is sent off for cytology.If the cytopathology is benign then the nodule will be followed annually with repeat ultrasounds. However if it is suspicious or malignant, we will need to discuss further management. Indeterminate cytology can be further investigated with repeat FNA, genetic testing or empiric lobectomy. Malignant cytology is managed with either lobectomy or total thyroidectomy. We discussed briefly that thyroid cancer is, in most patients, an indolent disease that does not affect mortality. We will arrange for FNA of the right inferior 2.7 cm thyroid nodule at next available opening and patient will follow up with me in clinic thereafter for results and further decision making. Last TSH normal from December 2023, we will repeat. Plan: -scheduled for right inferior 2.7 cm thyroid nodule FNA and a follow up 2 weeks after to discuss results -ordered TSH with reflex free T4 to be done now Plan I spent 45 minutes in reviewing the record, seeing the patient and documenting in the medical record. Orders: Orders US biopsy thyroid Today E04.1 - Nontoxic single thyroid nodule TSH reflex Free T4 Today E04.1 - Nontoxic single thyroid nodule Patient Instructions: please do blood work We will book you for a right sided thyroid nodule biopsy and a follow up 2 weeks after to discuss results in office Coding Level of Care Code New Pt Level 4 (03072) Diagnoses Multinodular goiter (nontoxic) E04.2 Time Spent (min) 45
== END 2024-07-11 15:22 | disposition home or self-care (01) ==
LOC: HO.ENCR 14:30
PROVIDERS: PCP Internal Medicine; Visit Provider Student in an Organized Health Care Education/Training Program
DX: E04.2 Nontoxic multinodular goiter (principal)
CPT/HCPCS: 99204

== ENCOUNTER 2024-07-15 11:25 | Inpatient (IN) | payer MEDICARE, SELFPAY ==
--- NOTE | ~2024-07-15 | XR_ITS ---
CLINICAL HISTORY: elevated bnp, LE swelling ?pulm edema Chest Radiographs, 2 views Comparison: 03/25/23 Findings: Cardiomegaly. Left chest wall dual lead cardiac pacemaker. Normal mediastinal contours. No pneumothorax. Interstitial prominence. Trace right and small left pleural effusions. Normal upper abdomen. No acute fracture. Impression: Mild pulmonary edema. This document has been electronically signed by: Natacha Hernandez MD on 07/15/2024 14:09:30
--- NOTE | ~2024-07-15 | US_ITS ---
CLINICAL HISTORY: increased swelling, redness r o DVT Right lower extremity venous duplex ultrasound Comparison: None Findings: The visualized deep veins are fully compressible with normal flow. Peripheral increased echogenicity material is seen in the right proximal to mid femoral artery which could be the sequela of chronic deep vein thrombosis. No popliteal cyst. In the right groin there is a prominent sized lymph node measuring 1.0 x 0.7 x 0.9 cm. It appears to be increased in echogenicity which could be secondary to an enlarged fatty hilum. There is calcification with shadowing seen in proximal thigh at the medial aspect. There is an adjacent echogenic lesion measuring 3.8 x 1.0 x 3.3 cm which could be edematous fat or a lipoma. Impression: No acute deep vein thrombosis. This document has been electronically signed by: Natacha Hernandez MD on 07/15/2024 14:41:43
--- NOTE | ~2024-07-15 | XR_ITS ---
CLINICAL HISTORY: overlying redness swelling Radiographs of the right tibia/fibula, 2 views, 3 images Comparison: None Findings: No cortical destruction or periostitis to indicate osteomyelitis. No fracture or dislocation. [id number] degenerative change. Intact visualized total knee arthroplasty. Bone mineralization is decreased. Soft tissue calcifications. Soft tissue swelling. Impression: No radiographic evidence of osteomyelitis. Follow up if symptoms persist or worsen. This document has been electronically signed by: Natacha Hernandez MD on 07/15/2024 14:08:35
[2024-07-15 11:59] VITALS: BP 109/53; PULSE 80; RESP 16; TEMP 36.4; O2SAT 97; BMI 35.1
--- NOTE | 2024-07-15 12:00 | ED_ITS ---
HPI - General Adult General Chief complaint: Extremity Problem Stated complaint: bi lateral leg swelling, R leg is red Time Seen by Provider: 07/15/24 11:59 Source: patient, family (sister), RN notes reviewed and old records reviewed Mode of arrival: ambulatory Limitations: no limitations History of Present Illness ED Provider: BETSEY CARBONE PA-C HPI narrative: 89 year old female with pmhx significant for stage 3 CKD, hypertension, paroxysmal atrial fibrillation, pacemaker, leg edema, vertigo, MARIELA, peripheral vascular disease, bladder cancer, obesity, GERD, hypercholesterolemia, and gout presents to the ED today for evaluation of increased swelling to bilateral lower extremities x few days. Reports her HCTZ was continued some time ago . She was recently restarted on a lower dose. Cannot recall how long she has been taking this. She states that yesterday she began to noticed redness to her right lower leg. She is currently anticoagulated on eliquis. Denies fever, chills. She ambulates with walker at baseline. She reports difficulty ambulating due to LE swelling. Denies chest pain, SOB. Her sister, Beth, is at bedside to assist with history. Related Data Home Medications ?Medication ?Instructions ?Recorded ?Confirmed cholecalciferol (vitamin D3) 25 25 mcg PO DAILY 03/11/20 07/11/24 mcg (1,000 unit) capsule coenzyme Q10 100 mg capsule (Co 100 mg PO DAILY 03/11/20 07/11/24 Q-10) polyethylene glycol 3350 17 gram 17 g PO DAILY PRN Constipation 02/24/23 07/11/24 oral powder packet (Miralax) propylene glycol 0.6 % eye drops 1 drp ophthalmic (eye) DAILY PRN 02/24/23 04/19/24 (Systane Balance) Dry Eyes cyclosporine 0.05 % eye drops in a 1 drp ophthalmic (eye) BID 07/15/24 dropperette (Restasis) hydrochlorothiazide 12.5 mg tablet 12.5 mg PO DAILY 07/15/24 Previous Rx's ?Medication ?Instructions ?Recorded meclizine 25 mg tablet 25 mg PO DAILY #30 tabs 05/05/23 omeprazole 20 mg capsule,delayed 20 mg PO DAILY #90 caps 07/22/23 release simvastatin 20 mg tablet 20 mg PO BEDTIME #90 tabs 10/15/23 apixaban 5 mg tablet (Eliquis) 5 mg PO BID #60 tabs 04/19/24 cyanocobalamin (vitamin B-12) 1,000 mcg PO DAILY #90 caps 04/19/24 1,000 mcg capsule methenamine hippurate 1 gram tablet 1 g PO DAILY inflammed bladder 90 05/02/24 days #90 tabs amlodipine 5 mg tablet 5 mg PO DAILY #90 tabs 05/04/24 gabapentin 300 mg capsule 300 mg PO BEDTIME #90 caps 05/04/24 metoprolol succinate 50 mg 50 mg PO DAILY 90 days #90 tabs 05/04/24 tablet,extended release 24 hr nystatin 100,000 unit/gram topical 1 appl topical BID #60 grams 05/04/24 powder Allergies Allergy/AdvReac Type Severity Reaction Status Date / Time No Known Allergies Allergy Verified 07/15/24 12:00 [No Known Allergies*] Review of Systems 2 Review of Systems: Yes all other systems are reviewed and are negative PMFSH Past Medical History Attestation statement: The following information was validated with the patient. Source: old records reviewed and nursing notes reviewed Medical History Multinodular goiter (nontoxic) Paroxysmal atrial fibrillation Pedal edema Removal of staple Visit for suture removal Complicated urinary tract infection Dysphagia Screening for breast cancer Abnormal ultrasound of breast Abnormal mammogram of left breast Multiple falls Physical deconditioning Breast cancer, left Breast cancer Chronic renal insufficiency HTN (hypertension) Cardiac pacemaker in situ AV block Leg edema Screening for diabetes mellitus On beta jake at home Arthritis Vertigo MARIELA (obstructive sleep apnea) Sick sinus syndrome Peripheral vascular disease Menieres disease Urinary bladder cancer Obesity Gout GERD (gastroesophageal reflux disease) Hypercholesterolemia Surgical History History of lumpectomy of left breast (03/10/23) History of esophagogastroduodenoscopy (EGD) S/P cardiac pacemaker procedure Hx of colonoscopy History of cystoscopy S/P MARION-BSO (total abdominal hysterectomy and bilateral salpingo-oophorectomy) History of cataract surgery History of knee replacement History of tonsillectomy History of appendectomy History of cholecystectomy Family History Family History Father Stroke Mother Heart disease Social History Social History Household Members: None Housing: Apartment Are you a primary career technology teacher to a significant other at home: No Do you presently have visiting nurse or other home services: No Alcohol intake: never Patient Tobacco Use Status: Former Tobacco user Tobacco use type: Cigarette Smoked in Last 30 Days: No e-Cigarette/Vaping Use: Never Used Second Hand Smoke Exposure: No Use of substances other than those prescribed or required for medical reasons: No Advance Directives: Yes Advance Directives on File: Yes Advance Directives Date on File: 09/15/21 Do you have a plan to hurt others: No Plan service: No Current occupational status: retired Cognitive needs: No Hearing needs: Yes Vision needs: Yes Physical Exam ED Vital Signs: Vital Signs - 24 hr 07/15/24 11:59 07/15/24 15:04 Temperature 97.6 F Pulse Rate 80 Respiratory Rate 16 Blood Pressure 109/53 L 101/45 L Pulse Oximetry 97 Oxygen Delivery Method Room Air BMI result Body Mass Index 35.1 General: Well appearing, in no acute distress. Skin: +see below. no warmth. no sloughing. 2+ dp/pt pulse. no calf tenderness. Head: Normocephalic, atraumatic. EENT: Hearing is intact b/l. Conjunctiva clear. PERRLA. EOM intact. Moist mucous membranes.? Cardiac: Chest wall symmetric. RRR. No JVD. Lungs: Normal respiratory effort without accessory muscle use. CTA bilaterally. Abdomen: Soft, non-tender, non-distended. No rebound tenderness or guarding Back: No midline spinous or paraspinal tenderness. No step off deformity. Ext: see above Neuro: AOx3. Normal speech. Ambulating with steady gait assisted by walker. Medications Administered Discontinued Medications Generic Name Dose Route Start Last Admin Trade Name Freq PRN Reason Stop Dose Admin Furosemide 40 mg 07/15/24 14:50 07/15/24 15:04 Furosemide 40 Mg/4 Ml Vial IVPUSH 07/15/24 14:51 40 mg ONCE ONE Administration Protocol Magnesium Sulfate 2 gm in 50 mls @ 150 mls/hr 07/15/24 13:29 07/15/24 15:01 Magnesium Sulfate/H2o IV 07/15/24 13:48 Infused ONCE ONE Infusion Medical Decision Making Medical Decision Making [facility] Narrative: 89 year old female with pmhx significant for stage 3 CKD, hypertension, paroxysmal atrial fibrillation, pacemaker, leg edema, vertigo, MARIELA, peripheral vascular disease, bladder cancer, obesity, GERD, hypercholesterolemia, and gout presents to the ED today for evaluation of increased swelling to bilateral lower extremities x few days. vital signs are stable. refer to physical exam portion for findings. Differential diagnosis includes anemia, electrolyte abnormality, CHF, dependent edema, cellulitis, venous stasis dermatitis, DVT Plan for blood work, imaging, ekg, re-evaluation. Differential Diagnosis Differential Diagnoses: The differential diagnosis associated with the presentation includes as above. Admission/Observation Consideration of admission/observation: Escalation of care including admission/observation considered patient admitted to medicine for CHF Consult Healthcare Provider Management of the patient was discussed with: Hospitalist dr. lam Lab Data [facility] Lab Attestation statement: I reviewed the patient's lab results. as above. 07/15/24 12:23 07/15/24 12:23 Labs: Lab Results 07/15/24 Range/Units 12:23 WBC 7.9 (4.8-10.8) X10*3/uL RBC 4.35 (4.20-5.50) X10*6/uL Hgb 12.1 (12.0-16.0) g/dl Hct 37.1 (37.0-47.0) % MCV 85.3 (80.0-98.0) fL MCH 27.8 (27.0-33.0) pg MCHC 32.6 (31.0-35.0) g/dl RDW 15.1 (11.0-16.0) % Plt Count 355 (160-400) X10*3/uL MPV 9.6 (9.4-12.3) fL Immature Gran % (Auto) 0.4 (0.0-0.4) % Neut % (Auto) 75.2 H (45-73) % Lymph % (Auto) 12.7 L (20-40) % [place] % (Auto) 9.5 (2-11) % Eos % (Auto) 1.6 (0-4) % Baso % (Auto) 0.6 (0-2) % Lymph # (Auto) 1.0 L (1.2-4.9) X10*3/uL [place] # (Auto) 0.8 (0.1-1.2) X10*3/uL Eos # (Auto) 0.1 (0.0-0.4) X10*3/uL Baso # (Auto) 0.1 (0.0-0.2) X10*3/uL Abs Immat Gran (auto) 0.03 (0.00-0.03) X10*3/uL Absolute Neuts (auto) 5.9 (2.0-8.3) x10*3/uL Absolute Nucleated RBC 0.000 (0.0-0.012) X10*3/uL Nucleated RBC % (auto) 0.0 (0.0-0.2) /100WBC Sodium 138 (135-145) mmol/L Potassium 3.3 (3.3-5.1) mmol/L Chloride 103 (96-108) mmol/L Carbon Dioxide 24 (22-29) mmol/L Anion Gap 14 (12-20) BUN 37 H (9-16) mg/dL Creatinine 1.66 H (0.5-1.4) mg/dL Estim Creat Clear Calc 23.0 Estimated GFR 29 Random Glucose 108 (60-115) mg/dL Calcium 9.0 (8.4-10.2) mg/dL Magnesium 1.4 L* (1.6-2.6) mg/dL Total Bilirubin 0.8 (0.0-1.0) mg/dL AST 31 (5-31) U/L ALT 8 (0-31) U/L Alkaline Phosphatase 128 H (39-117) U/L C-Reactive Protein 0.60 H (< or = 0.50) mg/dL B-Natriuretic Peptide 2304 H (<100) pg/mL Total Protein 7.6 (6.5-8.0) g/dL Albumin 3.8 (3.5-5.0) g/dL Independent Interpretation I performed an independent interpretation of an: EKG, Plain X-Ray and Ultrasound Interpretation: xr right tib/fib without osseous abnormality chest xray with pulmonary edema venous duplex without clot EKG showing ventricular paced rhythm with a rate of 54 beats per minute, QT 546, QTC 517 Radiology Impression Discussion of test interpretation with radiology: I have reviewed the radiologist's reading. Radiologist Impression: Procedure(s): XR chest 2V Accession Number(s): [id number] cc: Román Naik MD; Betsey Carbone~ CLINICAL HISTORY: elevated bnp, LE swelling ?pulm edema Chest Radiographs, 2 views Comparison: 03/25/23 Findings: Cardiomegaly. Left chest wall dual lead cardiac pacemaker. Normal mediastinal contours. No pneumothorax. Interstitial prominence. Trace right and small left pleural effusions. Normal upper abdomen. No acute fracture. Impression: Mild pulmonary edema. This document has been electronically signed by: Natacha Hernandez MD on 07/15/2024 14:09:30 Procedure(s): US venous duplex LE RT Accession Number(s): [id number] cc: Román Naik MD; Betsey Carbone~ CLINICAL HISTORY: increased swelling, redness r o DVT Right lower extremity venous duplex ultrasound Comparison: None Findings: The visualized deep veins are fully compressible with normal flow. Peripheral increased echogenicity material is seen in the right proximal to mid femoral artery which could be the sequela of chronic deep vein thrombosis. No popliteal cyst. In the right groin there is a prominent sized lymph node measuring 1.0 x 0.7 x 0.9 cm. It appears to be increased in echogenicity which could be secondary to an enlarged fatty hilum. There is calcification with shadowing seen in proximal thigh at the medial aspect. There is an adjacent echogenic lesion measuring 3.8 x 1.0 x 3.3 cm which could be edematous fat or a lipoma. Impression: No acute deep vein thrombosis. This document has been electronically signed by: Natacha Hernandez MD on 07/15/2024 14:41:43 Procedure(s): XR tibia fibula RT 2V Accession Number(s): [id number] cc: Román Naik MD; Betsey Carbone~ CLINICAL HISTORY: overlying redness swelling Radiographs of the right tibia/fibula, 2 views, 3 images Comparison: None Findings: No cortical destruction or periostitis to indicate osteomyelitis. No fracture or dislocation. [id number] degenerative change. Intact visualized total knee arthroplasty. Bone mineralization is decreased. Soft tissue calcifications. Soft tissue swelling. Impression: No radiographic evidence of osteomyelitis. Follow up if symptoms persist or worsen. This document has been electronically signed by: Natacha Hernandez MD on 07/15/2024 14:08:35 Independent Historian Clinical information obtained from an independent historian. History obtained from or confirmed by: Other (sister) External Record Review External record reviewed: Inpatient record Social Determinants Patient?s care significantly limited by Social Determinants of Health including: Other Social Determinant of Health Critical Care Time Critical Care Time Critical Care Time: Yes Total Critical Care Time: 31 Attestation: Critical care time in the amount of 31 minutes has been provided to the patient in terms of direct patient care, frequent reevaluation, consultation with hospitalist, review and interpretation of medical data and results, and management of potentially life-threatening conditions. This is all outside of any medical procedures. Discharge Plan Discharge Clinical Impression: Acute exacerbation of CHF (congestive heart failure) Patient Disposition: Admitted As Inpatient
[2024-07-15 12:28] LABS: Basophils Absolute Auto 0.1 X10*3/uL (0.0-0.2); Basophils Percent Auto 0.6 % (0-2); Eosinophils Absolute Auto 0.1 X10*3/uL (0.0-0.4); Eosinophils Percent Auto 1.6 % (0-4); Hematocrit 37.1 % (37.0-47.0); Hemoglobin 12.1 g/dl (12.0-16.0); Imm Gran Abs Auto 0.03 X10*3/uL (0.00-0.03); Imm Gran Pct Auto 0.4 % (0.0-0.4); Lymphocytes Percent Auto 12.7 % (20-40); MANUAL DIFF FLAG NO; Mean Corpuscular HGB Conc 32.6 g/dl (31.0-35.0); Mean Corpuscular Hemoglobin 27.8 pg (27.0-33.0); Mean Corpuscular Volume 85.3 fL (80.0-98.0); Mean Platelet Volume 9.6 fL (9.4-12.3); Monocytes Absolute Auto 0.8 X10*3/uL (0.1-1.2); Monocytes Percent Auto 9.5 % (2-11); Neutrophils Absolute Auto 5.9 x10*3/uL (2.0-8.3); Neutrophils Percent Auto 75.2 % (45-73); Platelet Count 355 X10*3/uL (160-400); Red Blood Count 4.35 X10*6/uL (4.20-5.50); Red Cell Distribution Width 15.1 % (11.0-16.0); White Blood Count 7.9 X10*3/uL (4.8-10.8)
[2024-07-15 12:46] LABS: Alanine Aminotransferase 8 U/L (0-31); Albumin Level 3.8 g/dL (3.5-5.0); Alkaline Phosphatase 128 U/L (39-117); Anion Gap 14 (12-20); Aspartate Amino Transferase 31 U/L (5-31); Bilirubin Total 0.8 mg/dL (0.0-1.0); Blood Urea Nitrogen 37 mg/dL (9-16); Carbon Dioxide 24 mmol/L (22-29); Chloride 103 mmol/L (96-108); Estimated Glomerular Filt Rate 29; Glucose Random 108 mg/dL (60-115); Potassium 3.3 mmol/L (3.3-5.1); Sodium 138 mmol/L (135-145); Total Protein 7.6 g/dL (6.5-8.0)
[2024-07-15 12:47] LABS: Magnesium 1.4 mg/dL (1.6-2.6)
[2024-07-15 12:51] LABS: B Type Natriuretic Peptide 2304 pg/mL (<100)
[2024-07-15] MEDS: Magnesium Sulfate/H2O 2 GM/50 ML PIGGYBACK IV (13:44)
--- NOTE | 2024-07-15 14:16 | ECG_ITS ---
Test Reason : LEG SWELLING Blood Pressure : */* mmHG Vent. Rate : 54 BPM Atrial Rate : 49 BPM P-R Int : * ms QRS Dur : 168 ms QT Int : 546 ms P-R-T Axes : * 241 56 degrees QTcB Int : 517 ms Ventricular-paced rhythm Abnormal ECG When compared with ECG of 25-Mar-2023 03:38, No significant changes seen Referred By: Betsey Carbone Electronically Signed By: AUDREY ROCHE
[2024-07-15 15:04] VITALS: BP 101/45
[2024-07-15] MEDS: Furosemide 40 MG/4 ML VIAL IVPUSH (15:04)
[2024-07-15 15:59] VITALS: BP 102/43; PULSE 50; RESP 14; O2SAT 94
[2024-07-15 16:00] VITALS: BP 102/43; PULSE 50; RESP 14; O2SAT 94
--- NOTE | 2024-07-15 16:01 | P.HPHOSP_ITS ---
History of Present Illness Date of Service: 07/15/24 Chief Complaint: leg swelling 89 year-old woman with HTN, paroxysmal AF and SSS s/p PPM and on apixaban, MARIELA not on CPAP, PVD, breast CA s/p lumpectomy, bladder CA, GERD, HLD, and gout who lives alone and ambulates with a 3-wheel walker. She presents today with 3-4 days of worsening bilateral leg swelling with some redness of the right more than the left cobb. She estimates she has gained 12 lb as well. She denies any fever, chills, chest pain, cough, dyspnea, orthopnea, or paroxysmal nocturnal dyspnea. In the ED, she was noted to have mild pulmonary edema and cardiomegaly on CXR. EKG showed V-paced rhythm. Venous duplex was negative for DVTs. BNP was 2304, Mg 1.4, BUN 37, Cr 1.66. She was given 2g of IV magnesium sulfate and 40 mg of IV furosemide. Review of Systems 2 Review of Systems: Yes all other systems are reviewed and are negative [facility] Medical History Multinodular goiter (nontoxic) Paroxysmal atrial fibrillation Pedal edema Removal of staple Visit for suture removal Complicated urinary tract infection Dysphagia Screening for breast cancer Abnormal ultrasound of breast Abnormal mammogram of left breast Multiple falls Physical deconditioning Breast cancer, left Breast cancer Chronic renal insufficiency HTN (hypertension) Cardiac pacemaker in situ AV block Leg edema Screening for diabetes mellitus On beta jake at home Arthritis Vertigo MARIELA (obstructive sleep apnea) Sick sinus syndrome Peripheral vascular disease Menieres disease Urinary bladder cancer Obesity Gout GERD (gastroesophageal reflux disease) Hypercholesterolemia Family History Father Stroke Mother Heart disease Surgical History History of lumpectomy of left breast (03/10/23) History of esophagogastroduodenoscopy (EGD) S/P cardiac pacemaker procedure Hx of colonoscopy History of cystoscopy S/P MARION-BSO (total abdominal hysterectomy and bilateral salpingo-oophorectomy) History of cataract surgery History of knee replacement History of tonsillectomy History of appendectomy History of cholecystectomy Social History Household Members: None Housing: Apartment Are you a primary vp care management to a significant other at home: No Do you presently have visiting nurse or other home services: No Alcohol intake: never Patient Tobacco Use Status: Former Tobacco user Tobacco use type: Cigarette Smoked in Last 30 Days: No e-Cigarette/Vaping Use: Never Used Second Hand Smoke Exposure: No Use of substances other than those prescribed or required for medical reasons: No Advance Directives: Yes Advance Directives on File: Yes Advance Directives Date on File: 09/15/21 Do you have a plan to hurt others: No Plan service: No Current occupational status: retired Cognitive needs: No Hearing needs: Yes Vision needs: Yes Meds Allergies Allergy/AdvReac Type Severity Reaction Status Date / Time No Known Allergies Allergy Verified 07/15/24 12:00 [No Known Allergies*] Active Medications: Current Medications Acetaminophen (Acetaminophen 325 Mg Tablet) 650 mg PO Q6H PRN PRN Reason: Pain, Mild 1-3,fever,headache Calcium Carbonate (Calcium Carbonate 750 Mg Tab.Chew) 750 mg PO Q4H PRN PRN Reason: Heartburn Furosemide (Furosemide 40 Mg/4 Ml Vial) 40 mg IVPUSH DAILY ABEBE; Protocol Magnesium Hydroxide (Milk Of Magnesia 30 Ml Oral.Susp) 30 ml PO DAILY PRN PRN Reason: Constipation Melatonin (Melatonin 3 Mg Tablet) 6 mg PO BEDTIME PRN PRN Reason: Insomnia Ondansetron HCl (Ondansetron Hcl 4 Mg/2 Ml Vial) 4 mg IVPUSH Q4H PRN PRN Reason: Nausea and Vomiting Sodium Chloride (0.9 % Sodium Chloride Flush 3 Ml Syringe) 3 ml IVFLUSH QSHIFT [facility] Home Medications ?Medication ?Instructions ?Recorded ?Confirmed ?Last Taken ?Type cholecalciferol (vitamin D3) 25 25 mcg PO DAILY 03/11/20 07/11/24 03/24/23 History mcg (1,000 unit) capsule coenzyme Q10 100 mg capsule (Co 100 mg PO DAILY 03/11/20 07/11/24 03/24/23 History Q-10) polyethylene glycol 3350 17 gram 17 g PO DAILY PRN Constipation 02/24/23 07/11/24 Unknown History oral powder packet (Miralax) propylene glycol 0.6 % eye drops 1 drp ophthalmic (eye) DAILY PRN 02/24/23 04/19/24 Unknown History (Systane Balance) Dry Eyes cyclosporine 0.05 % eye drops in a 1 drp ophthalmic (eye) BID 07/15/24 Unknown History dropperette (Restasis) hydrochlorothiazide 12.5 mg tablet 12.5 mg PO DAILY 07/15/24 Unknown History Physical Exam 2 Vital Signs and Narrative: Vital Signs: Last Vital Signs Temp 97.6 F 07/15/24 11:59 Pulse 50 07/15/24 15:59 Resp 14 07/15/24 15:59 BP 102/43 L 07/15/24 15:59 Pulse Ox 94 07/15/24 15:59 O2 Del Method Room Air 07/15/24 15:59 BMI result Body Mass Index 35.1 Gen: in no acute distress HEENT: sclera anicteric, moist mucus membranes Neck: supple, JVD present Lungs: clear to auscultation bilaterally Heart: regular rate and rhythm, no murmurs Abd: soft, non-tender, non-distended Ext: 2+ pitting bilateral leg edema with some R cobb redness without warmth Skin: warm/well-perfused Neuro: alert and oriented x3, no focal findings Psych: appropriate affect Results Labs 07/15/24 12:23 07/15/24 12:23 Labs: Laboratory Results - last 24 hr 07/15/24 12:23 MCV 85.3 MCH 27.8 MCHC 32.6 RDW 15.1 Plt Count 355 MPV 9.6 Immature Gran % (Auto) 0.4 Neut % (Auto) 75.2 H Lymph % (Auto) 12.7 L [place] % (Auto) 9.5 Eos % (Auto) 1.6 Baso % (Auto) 0.6 Lymph # (Auto) 1.0 L [place] # (Auto) 0.8 Eos # (Auto) 0.1 Baso # (Auto) 0.1 Abs Immat Gran (auto) 0.03 Absolute Neuts (auto) 5.9 Absolute Nucleated RBC 0.000 Nucleated RBC % (auto) 0.0 Anion Gap 14 Estim Creat Clear Calc 23.0 Estimated GFR 29 Random Glucose 108 Calcium 9.0 Magnesium 1.4 L* Total Bilirubin 0.8 AST 31 ALT 8 Alkaline Phosphatase 128 H C-Reactive Protein 0.60 H B-Natriuretic Peptide 2304 H Total Protein 7.6 Albumin 3.8 Assessment and Plan (1) CHF exacerbation: Status: Acute Plan 89 year-old woman with HTN, paroxysmal AF and SSS s/p PPM and on apixaban, MARIELA not on CPAP, PVD, breast CA s/p lumpectomy, bladder CA, GERD, HLD, and gout presenting with leg edema and weight gain, found to have pulmonary edema likely due to CHF. new-onset CHF, unknown EF - admit to telemetry, diurese with IV furosemide 40 mg daily, monitor I/O + lytes/BNP + weights, TTE, Cardiology consult - she had a normal MPS on 03/03/23 CKD3 - unclear baseline, monitor SCr with diuresis paroxysmal AF - continue apixaban, metoprolol succinate HTN - continue amlodipine, metoprolol succinate chronic vertigo - continue meclizine GERD - continue PPI HLD - continue statin VTE prophylaxis - apixaban dispo - TBD code status - full I anticipate that the patient will stay at least 2 midnights as an inpatient in the hospital due to the above reasons. It is neither reasonable nor safe to care for them in a less acute setting. Quality Stroke Does the patient have a stroke diagnosis?: No VTE Prior VTE?: No VTE Risk Level:: Medical - moderate - high VTE Device Contraindication: N/A - Device Ordered VTE Drug Contraindication: N/A - Med Ordered
[2024-07-15] MEDS: 0.9 % Sodium Chloride Flush 3 ML SYRINGE IVFLUSH (16:52)
--- NOTE | 2024-07-15 16:52 | PHA.MEDREC ---
Addendum entered by Sandy Borrego RP 07/15/24 17:09: [facility] reviewed Original Note: Pharmacy Consult ? Medication Reconciliation Pharmacy has completed the medication reconciliation. Spoke to pt to confirm meds. Pt has list with most meds as well. (handwritten)
[2024-07-15 17:49] LABS: Appearance Urine Clear; Color Urine Yellow; Glucose Urine UA Negative (Negative); Leukocyte Esterase Urine Small (1+) (Negative); Nitrite Urine Positive (Negative); UMIC TRIGGER UACC YES; Urine Blood Trace (Negative); Urine Ketones Negative (Negative); Urine Protein Trace mg/dL (Neg-Trace)
[2024-07-15 17:54] LABS: Bacteria Urine 4+ (None Seen); Hyaline Casts Urine 0-2 /LPF (0-2); RBC Urine 0-2 /HPF (0-2); Squamous Epithelial Cell Urine 0-2 /HPF (0-2); UACC Culture Trigger YES
[2024-07-15 19:20] VITALS: BP 101/53; PULSE 50; RESP 15
[2024-07-15] MEDS: Gabapentin 300 MG CAPSULE PO (20:32)
[2024-07-15] MEDS: Atorvastatin Calcium 10 MG TABLET PO (20:32)
[2024-07-15] MEDS: Apixaban 5 MG TABLET PO (20:32)
[2024-07-15 22:14] VITALS: BP 121/59; PULSE 53; RESP 18; TEMP 36.4; O2SAT 93
[2024-07-16] VITALS (14 sets, daily range): BP systolic 93–128; BP diastolic 41–71; PULSE 50–69; RESP 14–20; TEMP 36.3–36.6; O2SAT 90–97
[2024-07-16] MEDS: Omeprazole 20 MG CAPSULE.DR PO (06:02)
[2024-07-16 06:41] LABS: Anion Gap 13 (12-20); Blood Urea Nitrogen 35 mg/dL (9-16); Calcium 8.7 mg/dL (8.4-10.2); Carbon Dioxide 27 mmol/L (22-29); Chloride 102 mmol/L (96-108); Creatinine Clr Calc Pharmacy 23.3; Estimated Glomerular Filt Rate 30; Glucose Random 82 mg/dL (60-115); Magnesium 1.5 mg/dL (1.6-2.6); Potassium 3.3 mmol/L (3.3-5.1); Sodium 139 mmol/L (135-145)
[2024-07-16 06:47] LABS: B Type Natriuretic Peptide 1992 pg/mL (<100)
[2024-07-16] MEDS: Cholecalciferol (Vitamin D3) 25 MCG TABLET PO (08:52)
[2024-07-16] MEDS: Apixaban 5 MG TABLET PO ×2 (08:52→19:52)
[2024-07-16] MEDS: Magnesium Oxide 400 MG TABLET PO ×2 (08:52→18:10)
[2024-07-16] MEDS: Meclizine HCl 25 MG TABLET PO (08:52)
[2024-07-16] MEDS: Cyanocobalamin (Vitamin B-12) 1,000 MCG TABLET 1000 MCG PO (08:52)
--- NOTE | 2024-07-16 09:05 | PC.NURSE ---
Pt with decreased BP (93/50) and HR (50) this AM for morning med pass. Metoprolol and lasix held at this time and attending made aware via [place] connect. No new orders received at this time. Pt noted to be sating at 89% on room air. Pt placed on 2L supplemental O2 via [place]--attending made aware. Cardiology at bedside for consult.
[2024-07-16] MEDS: 0.9 % Sodium Chloride Flush 3 ML SYRINGE IVFLUSH ×3 (09:19→19:52)
--- NOTE | 2024-07-16 10:04 | MHC.CM.PN ---
IMM 07/16. Pt self-care, lives alone at home, uses a walker. Pts sister to transport her home at discharge. HCP on file and verified. PCP: Dr. France Po
--- NOTE | 2024-07-16 10:39 | PM.CNCAR ---
History of Present Illness History of Present Illness Date of Service: 07/16/24 Chief complaint: CHF Narrative: This is a cardiology consultation regarding congestive heart failure. It seems that for the last few days, she has been having leg swelling bilaterally. Right side more than the left side and there is also some redness on the right side. She also gets some weight. No clear-cut anginal-type symptoms or shortness of breath or other concerns. Then seen in the ER and thought to have some pulmonary edema and leg ultrasound was negative for DVT. Elevated cardiac BNP. Then she was given IV diuretics and admitted for further care. She states that she was on hydrochlorothiazide but her PCP had stopped it for unclear reasons. There is evidence of elevated creatinine and wonder if that is the reason. Any case, she was apparently then put back on a smaller dose. She is followed up by Dr. Solis in clinic. Last seen April. According to that note, persistent atrial fibrillation appetite and she had and she also has a pacemaker in place. Review of Systems Review of Systems: Yes all other systems are reviewed and are negative Constitutional: Constitutional: Reports as per HPI and Reports no additional constitutional complaints Eyes: Eyes: Reports as per HPI and Denies no additional eye complaints ENT: Denies system reviewed and no additional complaints, except as documented and Reports as per HPI Cardiovascular: Cardiovascular: Reports as per HPI, Reports no additional cardiovascular complaints, Denies acrocyanosis, Denies cool extremities, Denies chest pain, Reports leg edema, Denies lightheadedness, Denies palpitations and Denies dyspnea Respiratory: Respiratory: Reports as per HPI, Denies no additional respiratory complaints and Denies dyspnea Gastrointestinal: Gastrointestinal: Reports as per HPI and Denies no additional gastrointestinal complaints Genitourinary: Genitourinary: Reports as per HPI Musculoskeletal: Musculoskeletal: Reports no additional musculoskeletal complaints and Reports as per HPI Integumentary/Breasts: Skin/Breast: Reports system reviewed and no additional complaints, except as docu Neurologic: Reports system reviewed and no additional complaints, except as documented and Reports as per HPI Psychiatric: Psychiatric: Reports no additional psychiatric complaints and Reports as per HPI Endocrine: Endocrine: Reports no additional endocrine complaints, Reports as per HPI and Denies palpitations Hematologic/Lymphatic: Hematologic/Lymphatic: Reports no additional hematologic/lymphatic complaints and Reports as per HPI Allergic/Immunologic: Allergic/Immunologic: Reports no additional allergic/immunologic complaints and Reports as per HPI [facility] Past Medical History Medical History Multinodular goiter (nontoxic) Paroxysmal atrial fibrillation Pedal edema Removal of staple Visit for suture removal Complicated urinary tract infection Dysphagia Screening for breast cancer Abnormal ultrasound of breast Abnormal mammogram of left breast Multiple falls Physical deconditioning Breast cancer, left Breast cancer Chronic renal insufficiency HTN (hypertension) Cardiac pacemaker in situ AV block Leg edema Screening for diabetes mellitus On beta jake at home Arthritis Vertigo MARIELA (obstructive sleep apnea) Sick sinus syndrome Peripheral vascular disease Menieres disease Urinary bladder cancer Obesity Gout GERD (gastroesophageal reflux disease) Hypercholesterolemia Family History Family History Father Stroke Mother Heart disease Surgical History Surgical History History of lumpectomy of left breast (03/10/23) History of esophagogastroduodenoscopy (EGD) S/P cardiac pacemaker procedure Hx of colonoscopy History of cystoscopy S/P MARION-BSO (total abdominal hysterectomy and bilateral salpingo-oophorectomy) History of cataract surgery History of knee replacement History of tonsillectomy History of appendectomy History of cholecystectomy Social History Social History Household Members: None Housing: Apartment Are you a primary hearing care professional to a significant other at home: No Do you presently have visiting nurse or other home services: No Alcohol intake: never Patient Tobacco Use Status: Former Tobacco user Tobacco use type: Cigarette Smoked in Last 30 Days: No e-Cigarette/Vaping Use: Never Used Second Hand Smoke Exposure: No Use of substances other than those prescribed or required for medical reasons: No Advance Directives: Yes Advance Directives on File: Yes Advance Directives Date on File: 09/15/21 Do you have a plan to hurt others: No Plan Nutrition Risks: No Nutritional Risk service: No Current occupational status: retired Cognitive needs: No Hearing needs: Yes Vision needs: Yes Meds Allergies Allergy/AdvReac Type Severity Reaction Status Date / Time No Known Allergies Allergy Verified 07/15/24 12:00 [No Known Allergies*] Active Medications: Current Medications Acetaminophen (Acetaminophen 325 Mg Tablet) 650 mg PO Q6H PRN PRN Reason: Pain, Mild 1-3,fever,headache Apixaban (Apixaban 5 Mg Tablet) 5 mg PO BID [facility] Last Admin: 07/16/24 08:52 Dose: 5 mg Atorvastatin Calcium (Atorvastatin Calcium 10 Mg Tablet) 10 mg PO BEDTIME [facility] Last Admin: 07/15/24 20:32 Dose: 10 mg Calcium Carbonate (Calcium Carbonate 750 Mg Tab.Chew) 750 mg PO Q4H PRN PRN Reason: Heartburn Cyanocobalamin (Cyanocobalamin (Vitamin B-12) 1,000 Mcg Tablet) 1,000 mcg PO DAILY [facility] Last Admin: 07/16/24 08:52 Dose: 1,000 mcg Doxycycline Monohydrate (Doxycycline Monohydrate 100 Mg Capsule) 100 mg PO BID [facility] Furosemide (Furosemide 40 Mg/4 Ml Vial) 40 mg IVPUSH BID@0900,1800 [facility]; Protocol Last Admin: 07/16/24 08:54 Dose: Not Given Gabapentin (Gabapentin 300 Mg Capsule) 300 mg PO BEDTIME [facility] Last Admin: 07/15/24 20:32 Dose: 300 mg Magnesium Hydroxide (Milk Of Magnesia 30 Ml Oral.Susp) 30 ml PO DAILY PRN PRN Reason: Constipation Magn[facility] Oxide ([facility] 400 Mg [facility]t) [facility] Stop: 07/17/24 08:31 Last Admin: 07/16/24 08:52 Dose: 400 mg Meclizine HCl (Meclizine Hcl 25 Mg Tablet) 25 mg PO DAILY [facility] Last Admin: 07/16/24 08:52 Dose: 25 mg Melatonin (Melatonin 3 Mg Tablet) 6 mg PO BEDTIME PRN PRN Reason: Insomnia Metoprolol Succinate (Metoprolol Succinate Er 50 Mg Tab.Er.24h) 50 mg PO DAILY [facility]; Protocol Last Admin: 07/16/24 08:55 Dose: Not Given Omeprazole (Omeprazole 20 Mg Capsule.Dr) 20 mg PO DAILY@0630 [facility] Last Admin: 07/16/24 06:02 Dose: 20 mg Ondansetron HCl (Ondansetron Hcl 4 Mg/2 Ml Vial) 4 mg IVPUSH Q4H PRN PRN Reason: Nausea and Vomiting Polyethylene Glycol (Polyethylene Glycol 3350 17 Gm Powd.Pack) 17 gm PO DAILY PRN PRN Reason: Constipation Sodium Chloride (0.9 % Sodium Chloride Flush 3 Ml Syringe) 3 ml IVFLUSH QSHIFT [facility] Last Admin: 07/16/24 09:19 Dose: 3 ml Vitamin D (Cholecalciferol (Vitamin D3) 25 Mcg Tablet) 25 mcg PO DAILY [facility] Last Admin: 07/16/24 08:52 Dose: 25 mcg Home Medications ?Medication ?Instructions ?Recorded ?Confirmed ?Last Taken ?Type cholecalciferol (vitamin D3) 25 25 mcg PO DAILY 03/11/20 07/15/24 07/15/24 09:00 History mcg (1,000 unit) capsule coenzyme Q10 100 mg capsule (Co 100 mg PO DAILY 03/11/20 07/15/24 07/15/24 09:00 History Q-10) polyethylene glycol 3350 17 gram 17 g PO DAILY PRN Constipation 02/24/23 07/15/24 Unknown History oral powder packet (Miralax) cyclosporine 0.05 % eye drops in a 1 drp ophthalmic (eye) BID 07/15/24 07/15/24 07/15/24 09:00 History dropperette (Restasis) hydrochlorothiazide 12.5 mg tablet 12.5 mg PO DAILY 07/15/24 07/15/24 07/15/24 09:00 History nystatin 100,000 unit/gram topical 1 appl topical DAILY 07/15/24 07/15/24 07/15/24 09:00 History powder omeprazole 20 mg capsule,delayed 20 mg PO DAILY@0630 07/15/24 07/15/24 07/15/24 07:00 History release Physical Exam Vital Signs: Vital Signs: Last Vital Signs Temp 97.6 F 07/16/24 05:59 Pulse 50 07/16/24 08:55 Resp 16 07/16/24 08:45 BP 93/50 L 07/16/24 08:55 Pulse Ox 95 07/16/24 08:52 O2 Del Method Nasal Cannula 07/16/24 08:52 O2 Flow Rate 2 07/16/24 08:52 BMI result Body Mass Index 35.1 Const: General: comfortable and no acute distress Orientation/consciousness: patient oriented x3 HEENT: Other: Unremarkable Head: Yes normal to inspection Neck: Neck: Yes normal visual inspection Chest: Chest palpation & inspection: normal inspection of the chest Resp: Auscultation: clear to auscultation bilaterally Cardio: Palpation: normal PMI Heart sounds: S1 normal heart sound present, S2 normal heart sound present, no gallops, no murmurs and no rubs GI: Palpation (GI): Soft to palpation Back/Spine/Pelvis: Other: unremarkable Skin: General skin exam: no rashes or lesions noted Neuro: General: patient oriented x3 Extrem: Other: swelling LE+; R>L. General: Yes normal to inspection Psych: Mental Status: mental status grossly normal Objective Labs and Meds 07/15/24 12:23 07/16/24 06:10 Lab results: Laboratory Results - last 24 hr 07/15/24 07/15/24 07/16/24 12:23 17:40 06:10 WBC 7.9 RBC 4.35 Hgb 12.1 Hct 37.1 MCV 85.3 MCH 27.8 MCHC 32.6 RDW 15.1 Plt Count 355 MPV 9.6 Immature Gran % (Auto) 0.4 Neut % (Auto) 75.2 H Lymph % (Auto) 12.7 L Banks % (Auto) 9.5 Eos % (Auto) 1.6 Baso % (Auto) 0.6 Lymph # (Auto) 1.0 L [place] # (Auto) 0.8 Eos # (Auto) 0.1 Baso # (Auto) 0.1 Abs Immat Gran (auto) 0.03 Absolute Neuts (auto) 5.9 Absolute Nucleated RBC 0.000 Nucleated RBC % (auto) 0.0 Sodium 138 139 Potassium 3.3 3.3 Chloride 103 102 Carbon Dioxide 24 27 Anion Gap 14 13 BUN 37 H 35 H Creatinine 1.66 H 1.64 H Estim Creat Clear Calc 23.0 23.3 Estimated GFR 29 30 Random Glucose 108 82 Calcium 9.0 8.7 Magnesium 1.4 L* 1.5 L Total Bilirubin 0.8 AST 31 ALT 8 Alkaline Phosphatase 128 H C-Reactive Protein 0.60 H B-Natriuretic Peptide 2304 H 1992 H Total Protein 7.6 Albumin 3.8 Urine Color Yellow Urine Appearance Clear Urine pH 5.0 Ur Specific Roxie 1.010 Urine Protein Trace Urine Glucose (UA) Negative Urine Ketones Negative Urine Blood Trace H Urine Nitrite Positive H Ur Leukocyte Esterase Small (1+) H Urine RBC 0-2 Urine WBC 11-20 H Ur Squamous Epith Cells 0-2 Urine Bacteria 4+ Hyaline Casts 0-2 ECG Interpretation: EKG shows ventricular paced rhythm at 54/Min. Atrial rhythm not clear. Possible atrial fibrillation. Assessment and Plan (1) Acute diastolic (congestive) heart failure: Status: Acute (2) Persistent atrial fibrillation: Status: Acute Plan Echocardiogram from 2020 shows LVEF of 60-65%, mild mitral regurgitation and [id number] tricuspid regurgitation. Chest x-ray with interstitial prominence, trace right/left pleural effusions. Mild pulmonary edema. Her cardiac BNP is significantly elevated. Overall, possible atrial fibrillation triggering diastolic heart failure but not clear. Also not clear if coming off hydrochlorothiazide played a role. Agree with IV diuretics with close monitoring of renal function. Echocardiogram. We will follow up with you. Procedures Date of Service Date of Service: 07/16/24
[2024-07-16] MEDS: Doxycycline Monohydrate 100 MG CAPSULE PO ×2 (11:20→19:52)
--- NOTE | 2024-07-16 12:17 | P.PNIM_ITS ---
Subjective Subjective Date of Service: 07/16/24 Interval History: edema slightly improved but RLE redness worse placed on O2 for hypoxia Review of Systems Review of Systems: Yes all other systems are reviewed and are negative Physical Exam 2 Vital Signs: Vital Signs: Last Vital Signs Temp 97.6 F 07/16/24 05:59 Pulse 52 07/16/24 12:07 Resp 18 07/16/24 12:07 BP 101/41 L 07/16/24 12:07 Pulse Ox 96 07/16/24 12:07 O2 Del Method Nasal Cannula 07/16/24 12:07 O2 Flow Rate 2 07/16/24 12:07 BMI result Body Mass Index 35.1 Gen: in no acute distress HEENT: sclera anicteric, moist mucus membranes Neck: supple, JVD present Lungs: diminished bilateral bases Heart: regular rate and rhythm, no murmurs Abd: soft, non-tender, non-distended Ext: 2+ pitting bilateral leg edema, R cobb with erythema + warmth Skin: warm/well-perfused Neuro: alert and oriented x3, no focal findings Psych: appropriate affect Objective Data Active Medications Acetaminophen (Acetaminophen 325 Mg Tablet) 650 mg PO Q6H PRN PRN Reason: Pain, Mild 1-3,fever,headache Apixaban (Apixaban 5 Mg Tablet) 5 mg PO BID [facility] Last Admin: 07/16/24 08:52 Dose: 5 mg Documented By: MARIA DEL CARMEN Atorvastatin Calcium (Atorvastatin Calcium 10 Mg Tablet) 10 mg PO BEDTIME [facility] Last Admin: 07/15/24 20:32 Dose: 10 mg Documented By: SUZETTE Calcium Carbonate (Calcium Carbonate 750 Mg Tab.Chew) 750 mg PO Q4H PRN PRN Reason: Heartburn Cyanocobalamin (Cyanocobalamin (Vitamin B-12) 1,000 Mcg Tablet) 1,000 mcg PO DAILY [facility] Last Admin: 07/16/24 08:52 Dose: 1,000 mcg Documented By: MARIA DEL CARMEN Doxycycline Monohydrate (Doxycycline Monohydrate 100 Mg Capsule) 100 mg PO BID [facility] Last Admin: 07/16/24 11:20 Dose: 100 mg Documented By: MARIA DEL CARMEN Furosemide (Furosemide 40 Mg/4 Ml Vial) 40 mg IVPUSH BID@0900,1800 [facility]; Protocol Last Admin: 07/16/24 08:54 Dose: Not Given Documented By: MARIA DEL CARMEN Non-Admin Reason: Decreased Blood Pressure Gabapentin (Gabapentin 300 Mg Capsule) 300 mg PO BEDTIME [facility] Last Admin: 07/15/24 20:32 Dose: 300 mg Documented By: SUZETTE Magnesium Hydroxide (Milk Of Magnesia 30 Ml Oral.Susp) 30 ml PO DAILY PRN PRN Reason: Constipation Magnesium Oxide (Magnesium Oxide 400 Mg Tablet) 400 mg PO BIDPC [facility] Stop: 07/17/24 08:31 Last Admin: 07/16/24 08:52 Dose: 400 mg Documented By: MARIA DEL CARMEN Meclizine HCl (Meclizine Hcl 25 Mg Tablet) 25 mg PO DAILY [facility] Last Admin: 07/16/24 08:52 Dose: 25 mg Documented By: MARIA DEL CARMEN Melatonin (Melatonin 3 Mg Tablet) 6 mg PO BEDTIME PRN PRN Reason: Insomnia Metoprolol Succinate (Metoprolol Succinate Er 50 Mg Tab.Er.24h) 50 mg PO DAILY [facility]; Protocol Last Admin: 07/16/24 08:55 Dose: Not Given Documented By: MARIA DEL CARMEN Non-Admin Reason: Decreased Heart Rate Omeprazole (Omeprazole 20 Mg Capsule.Dr) 20 mg PO DAILY@0630 [facility] Last Admin: 07/16/24 06:02 Dose: 20 mg Documented By: SUZETTE Ondansetron HCl (Ondansetron Hcl 4 Mg/2 Ml Vial) 4 mg IVPUSH Q4H PRN PRN Reason: Nausea and Vomiting Polyethylene Glycol (Polyethylene Glycol 3350 17 Gm Powd.Pack) 17 gm PO DAILY PRN PRN Reason: Constipation Sodium Chloride (0.9 % Sodium Chloride Flush 3 Ml Syringe) 3 ml IVFLUSH QSHIFT [facility] Last Admin: 07/16/24 09:19 Dose: 3 ml Documented By: MARIA DEL CARMEN Vitamin D (Cholecalciferol (Vitamin D3) 25 Mcg Tablet) 25 mcg PO DAILY [facility] Last Admin: 07/16/24 08:52 Dose: 25 mcg Documented By: MARIA DEL CARMEN Labs 07/15/24 12:23 07/16/24 06:10 Labs: Laboratory Results - last 24 hr 07/15/24 07/15/24 07/16/24 12:23 17:40 06:10 MCV 85.3 MCH 27.8 MCHC 32.6 RDW 15.1 Plt Count 355 MPV 9.6 Immature Gran % (Auto) 0.4 Neut % (Auto) 75.2 H Lymph % (Auto) 12.7 L [place] % (Auto) 9.5 Eos % (Auto) 1.6 Baso % (Auto) 0.6 Lymph # (Auto) 1.0 L [place] # (Auto) 0.8 Eos # (Auto) 0.1 Baso # (Auto) 0.1 Abs Immat Gran (auto) 0.03 Absolute Neuts (auto) 5.9 Absolute Nucleated RBC 0.000 Nucleated RBC % (auto) 0.0 Anion Gap 14 13 Estim Creat Clear Calc 23.0 23.3 Estimated GFR 29 30 Random Glucose 108 82 Calcium 9.0 8.7 Magnesium 1.4 L* 1.5 L Total Bilirubin 0.8 AST 31 ALT 8 Alkaline Phosphatase 128 H C-Reactive Protein 0.60 H B-Natriuretic Peptide 2304 H 1992 H Total Protein 7.6 Albumin 3.8 Urine Color Yellow Urine Appearance Clear Urine pH 5.0 Ur Specific [place] 1.010 Urine Protein Trace Urine Glucose (UA) Negative Urine Ketones Negative Urine Blood Trace H Urine Nitrite Positive H Ur Leukocyte Esterase Small (1+) H Urine RBC 0-2 Urine WBC 11-20 H Ur Squamous Epith Cells 0-2 Urine Bacteria 4+ Hyaline Casts 0-2 Microbiology Microbiology Results: Microbiology 07/15/24 17:40 Urine Culture - Preliminary Urine clean catch - Clean Catch Midstream Gram negative john Assessment and Plan (1) Acute exacerbation of CHF (congestive heart failure): Status: Acute Plan d2 for 89 year-old woman with HTN, paroxysmal AF and SSS s/p PPM and on apixaban, MARIELA not on CPAP, PVD, breast CA s/p lumpectomy, bladder CA, GERD, HLD, and gout presenting with leg edema and weight gain, found to have pulmonary edema likely due to CHF new-onset CHF, unknown EF - continue to diurese with IV furosemide 40 mg bid, monitor I/O [negative 250 mL thus far]+ lytes/BNP + weights, TTE, Cardiology consulted + following - she had a normal MPS on 03/03/23 acute hypoxic respiratory failure - supplemental O2, wean as tolerated CKD3 - unclear baseline, monitor SCr with diuresis [stable since yesterday] paroxysmal AF - continue apixaban, metoprolol succinate HTN - continue amlodipine, metoprolol succinate chronic vertigo - continue meclizine GERD - continue PPI HLD - continue statin VTE prophylaxis - apixaban dispo - TBD In my clinical judgment, the patient requires continued inpatient hospitalization for the following reasons: IV diures,s hypoxia Total time managing care of this patient today: 35 minutes. Quality Stroke Does the patient have a stroke diagnosis?: No VTE Prior VTE?: No VTE Risk Level:: Medical - moderate - high VTE Device Contraindication: N/A - Device Ordered VTE Drug Contraindication: N/A - Med Ordered
[2024-07-16] MEDS: Furosemide 40 MG/4 ML VIAL IVPUSH (18:14)
[2024-07-16] MEDS: Gabapentin 300 MG CAPSULE PO (19:52)
[2024-07-16] MEDS: Atorvastatin Calcium 10 MG TABLET PO (19:52)
[2024-07-17] VITALS (7 sets, daily range): BP systolic 98–124; BP diastolic 50–62; PULSE 50–84; RESP 18–22; TEMP 36.2–36.8; O2SAT 92–97
[2024-07-17] MEDS: Omeprazole 20 MG CAPSULE.DR PO (05:16)
[2024-07-17 06:17] LABS: B Type Natriuretic Peptide 1924 pg/mL (<100)
[2024-07-17 06:23] LABS: Anion Gap 12 (12-20); Blood Urea Nitrogen 35 mg/dL (9-16); Calcium 8.5 mg/dL (8.4-10.2); Carbon Dioxide 30 mmol/L (22-29); Chloride 99 mmol/L (96-108); Creatinine Clr Calc Pharmacy 23.5; Estimated Glomerular Filt Rate 30; Glucose Random 98 mg/dL (60-115); Magnesium 1.4 mg/dL (1.6-2.6); Potassium 3.3 mmol/L (3.3-5.1); Sodium 138 mmol/L (135-145)
--- NOTE | 2024-07-17 07:00 | CA_ITS ---
Transthoracic Echocardiogram Patient (Last, First, Middle): Gricelda Fischer M Gender: Female Date of : 1935 Age: 89 Procedure Date: 07/17/2024 Procedure Type: Transthoracic Echocardiogram [place] [facility] [place] Height: 154.94 cm Weight: 83.92 kg BSA: 1.83 m2 Heart Rate: bpm BP: 188 / 57 mmHg Customer Engineer: CHERY Referring MD: Malgorzata Nieto MD Symptoms: chf, new Study Quality: Fair, contrast Conclusions: - Normal left ventricular size, thickness, and systolic function. The visually estimated ejection fraction is between 60-65%. There is no evidence of regional wall motion abnormalities. There is a flattened septum in systole and diastole consistent with right ventricular pressure and volume overload. - Mildly increased right ventricular cavity size. There is normal right ventricular systolic function. There is a pacemaker wire seen in the right ventricle. - Significantly elevated right atrial pressure. - Mild pulmonary hypertension is present. Findings Procedure Information Contrast agent, definity, is being given per protocol without apparent complications. Left Ventricle Normal left ventricular size, thickness, and systolic function. The visually estimated ejection fraction is between 60-65%. There is no evidence of regional wall motion abnormalities. There is a flattened septum in systole and diastole consistent with right ventricular pressure and volume overload. Diastolic function is indeterminate on the basis of available data. Right Ventricle Mildly increased right ventricular cavity size. There is normal right ventricular systolic function. There is a pacemaker wire seen in the right ventricle. Atria The left atrium is likely dilated. The right atrium is mildly dilated. Aortic Valve There is a normal trileaflet aortic valve. There is no aortic valve stenosis. There is trace (trivial) aortic valve regurgitation. Mitral Valve There is mild mitral annular calcification. There is mild to moderate mitral valve regurgitation. There is no mitral valve stenosis. Pulmonic Valve The pulmonic valve is likely normal. There is no pulmonic valve regurgitation. Tricuspid Valve Normal tricuspid valve structure. There is moderate to severe tricuspid valve regurgitation. The right ventricular systolic pressure is 35 mmHg. Significantly elevated right atrial pressure. Mild pulmonary hypertension is present. Great Vessels All visible segments of the aorta are normal in size. The visualized portions of the pulmonary artery and branches are normal. Venous The inferior vena cava is dilated and collapses less than 50% with inspiration. Pericardium/Pleural There is no evidence of pericardial effusion. Prior Study Comparison Changes noted compared to prior study dated: 03/26/2021. RV mildly dilated, D shaped LV cavity, significantly elevated RA pressure. Measurements 2D Linear Measurements IVSd: 0.77 0.6-0.9/0.6-1.0 cm LVIDd: 4.49 3.9-5.3/4.2-5.9 cm LVIDd Index: 2.45 2.4-3.2/2.2-3.1 cm/m2 LVIDs: 2.21 2.0-3.6 cm LVPWd: 0.86 0.7-1.1 cm LA Diam: 4.20 2.7-3.8/3.0-4.0 cm LAIDs Index: 2.30 1.5-2.3 cm/m2 LV Mass: 144.37 67-162/88-224 g LV Mass Index: 78.89 43-95/49-115 g/m2 LVOT Diam: 2.10 3.0+(-)1.3 cm 2D Systolic Function EF 4C: 65.60 >55% EF 2C: 68.70 >55% EF BiP: 67.40 >55% Mitral Valve MV VTI: 0.47 MV Pk Jaguar: 1.12 MV Mn Jaguar: 0.73 MV Pk Grad: 5.00 MV Mn Grad: 2.00 MV Pk E: 1.19 MV PK A: 1.29 MV Decel Time: 300.00 E/A: 0.90 E'Lateral: 7.50 E'Medial: 6.67 E/E' Med: 17.80 E/E' Lat: 15.90 PHT: 88.00 MVA PHT: 2.50 MVA Continuity: 1.72 Decel [place]: 4.02 Aortic Valve AoV Pk Jaguar: 1.34 AoV Mn Jaguar: 1.00 AoV VTI: 0.33 AoV Pk Grad: 7.00 Aov Mn Grad: 4.00 JEANNETTE Cont.VTI: 2.43 LVOT LVOT Pk Jaguar: 0.99 LVOT Mn Jaguar: 0.63 LVOT VTI: 0.23 LVOT Pk Grad: 4.00 LVOT Mn Grad: 2.00 LVOT Diam: 2.10 LVOT Area: 3.46 Diastolic Function MV Pk E: 1.19 MV Pk A: 1.29 E/A: 0.90 E'Medial: 6.67 E/E' Med: 17.80 E' Laterial: 7.50 E/E' Lat: 15.90 Right Ventricle TAPSE (mm): 16.50 TVS' Jaguar: 9.57 Tricuspid Valve TR Pk Jaguar: 2.24 TR Pk Grad: 20.00 RA Press: 15.00 RVSP: 35.00 Great Vessels Aorta Sinus of Valsalva: 3.00 2.0-3.5 cm Ao Asc: 3.70 2.1-3.4 cm Pulmonary Valve PV Pk Jaguar: 1.30 Peak PV Grad: 7.00 Updated in Other Vendor System with Status of Final Jamil Youssef MD electronically signed on 07/17/2024 6:58:49 PM with status of Final
[2024-07-17] MEDS: Apixaban 5 MG TABLET PO (08:55)
[2024-07-17] MEDS: Magnesium Sulfate/H2O 2 GM/50 ML PIGGYBACK IV (08:55)
[2024-07-17] MEDS: Metoprolol Succinate ER 50 MG TAB.ER.24H PO (08:55)
[2024-07-17] MEDS: Cyanocobalamin (Vitamin B-12) 1,000 MCG TABLET 1000 MCG PO (08:55)
[2024-07-17] MEDS: 0.9 % Sodium Chloride Flush 3 ML SYRINGE IVFLUSH ×3 (08:55→20:33)
[2024-07-17] MEDS: Magnesium Oxide 400 MG TABLET PO (08:55)
[2024-07-17] MEDS: Meclizine HCl 25 MG TABLET PO (08:55)
[2024-07-17] MEDS: Furosemide 40 MG/4 ML VIAL IVPUSH ×2 (08:55→18:12)
[2024-07-17] MEDS: Doxycycline Monohydrate 100 MG CAPSULE PO ×2 (08:55→20:31)
[2024-07-17] MEDS: Cholecalciferol (Vitamin D3) 25 MCG TABLET PO (08:55)
--- NOTE | 2024-07-17 12:12 | P.PNIM_ITS ---
Subjective Subjective Date of Service: 07/17/24 Interval History: negative 500 mL thus far leg swelling improved Review of Systems Review of Systems: Yes all other systems are reviewed and are negative Physical Exam 2 Vital Signs: Vital Signs: Last Vital Signs Temp 97.2 F 07/17/24 11:50 Pulse 50 07/17/24 11:50 Resp 18 07/17/24 11:50 BP 98/52 L 07/17/24 11:50 Pulse Ox 97 07/17/24 11:50 O2 Del Method Nasal Cannula 07/17/24 11:50 O2 Flow Rate 2 07/17/24 11:50 BMI result Body Mass Index 35.1 Gen: in no acute distress HEENT: sclera anicteric, moist mucus membranes Neck: supple, JVD present Lungs: diminished bilateral bases Heart: regular rate and rhythm, no murmurs Abd: soft, non-tender, non-distended Ext: 2+ pitting bilateral leg edema, R cobb with erythema + warmth improved from yesterday Skin: warm/well-perfused Neuro: alert and oriented x3, no focal findings Psych: appropriate affect Objective Data Active Medications Acetaminophen (Acetaminophen 325 Mg Tablet) 650 mg PO Q6H PRN PRN Reason: Pain, Mild 1-3,fever,headache Apixaban (Apixaban 2.5 Mg Tablet) 2.5 mg PO BID [facility] Atorvastatin Calcium (Atorvastatin Calcium 10 Mg Tablet) 10 mg PO BEDTIME [facility] Last Admin: 07/16/24 19:52 Dose: 10 mg Documented By: ELIA Calcium Carbonate (Calcium Carbonate 750 Mg Tab.Chew) 750 mg PO Q4H PRN PRN Reason: Heartburn Cyanocobalamin (Cyanocobalamin (Vitamin B-12) 1,000 Mcg Tablet) 1,000 mcg PO DAILY [facility] Last Admin: 07/17/24 08:55 Dose: 1,000 mcg Documented By: NICHELLE Doxycycline Monohydrate (Doxycycline Monohydrate 100 Mg Capsule) 100 mg PO BID [facility] Last Admin: 07/17/24 08:55 Dose: 100 mg Documented By: NICHELLE Furosemide (Furosemide 40 Mg/4 Ml Vial) 40 mg IVPUSH BID@0900,1800 [facility]; Protocol Last Admin: 07/17/24 08:55 Dose: 40 mg Documented By: NICHELLE Gabapentin (Gabapentin 300 Mg Capsule) 300 mg PO BEDTIME [facility] Last Admin: 07/16/24 19:52 Dose: 300 mg Documented By: ELIA Magnesium Hydroxide (Milk Of Magnesia 30 Ml Oral.Susp) 30 ml PO DAILY PRN PRN Reason: Constipation Meclizine HCl (Meclizine Hcl 25 Mg Tablet) 25 mg PO DAILY [facility] Last Admin: 07/17/24 08:55 Dose: 25 mg Documented By: NICHELLE Melatonin (Melatonin 3 Mg Tablet) 6 mg PO BEDTIME PRN PRN Reason: Insomnia Metoprolol Succinate (Metoprolol Succinate Er 50 Mg Tab.Er.24h) 50 mg PO DAILY [facility]; Protocol Last Admin: 07/17/24 08:55 Dose: 50 mg Documented By: NICHELLE Omeprazole (Omeprazole 20 Mg Capsule.Dr) 20 mg PO DAILY@0630 [facility] Last Admin: 07/17/24 05:16 Dose: 20 mg Documented By: ELIA Ondansetron HCl (Ondansetron Hcl 4 Mg/2 Ml Vial) 4 mg IVPUSH Q4H PRN PRN Reason: Nausea and Vomiting Polyethylene Glycol (Polyethylene Glycol 3350 17 Gm Powd.Pack) 17 gm PO DAILY PRN PRN Reason: Constipation Sodium Chloride (0.9 % Sodium Chloride Flush 3 Ml Syringe) 3 ml IVFLUSH QSHIFT [facility] Last Admin: 07/17/24 08:55 Dose: 3 ml Documented By: NICHELLE Vitamin D (Cholecalciferol (Vitamin D3) 25 Mcg Tablet) 25 mcg PO DAILY [facility] Last Admin: 07/17/24 08:55 Dose: 25 mcg Documented By: NICHELLE Labs 07/15/24 12:23 07/17/24 05:37 Labs: Laboratory Results - last 24 hr 07/17/24 05:37 Anion Gap 12 Estim Creat Clear Calc 23.5 Estimated GFR 30 Random Glucose 98 Calcium 8.5 Magnesium 1.4 L* B-Natriuretic Peptide 1924 H Microbiology Microbiology Results: Microbiology 07/15/24 17:40 Urine Culture - Final Urine clean catch - Clean Catch Midstream Escherichia coli Assessment and Plan (1) Acute exacerbation of CHF (congestive heart failure): Status: Acute Plan d3 for 89 year-old woman with HTN, paroxysmal AF and SSS s/p PPM and on apixaban, MARIELA not on CPAP, PVD, breast CA s/p lumpectomy, bladder CA, GERD, HLD, and gout presenting with leg edema and weight gain, found to have pulmonary edema likely due to CHF new-onset CHF, unknown EF - continue to diurese with IV furosemide 40 mg bid, monitor I/O [negative 500 mL thus far]+ lytes/BNP + weights, TTE pending, Cardiology consulted + following - she had a normal MPS on 03/03/23 acute hypoxic respiratory failure - supplemental O2, wean as tolerated cellulitis - PO doxycycline 07/16- CKD3 - unclear baseline, monitor SCr with diuresis [stable since admission] paroxysmal AF - continue apixaban, metoprolol succinate HTN - continue amlodipine, metoprolol succinate chronic vertigo - continue meclizine GERD - continue PPI HLD - continue statin VTE prophylaxis - apixaban dispo - eventual home with VNA In my clinical judgment, the patient requires continued inpatient hospitalization for the following reasons: IV diuresis, hypoxia Total time managing care of this patient today: 35 minutes. Quality Stroke Does the patient have a stroke diagnosis?: No VTE Prior VTE?: No VTE Risk Level:: Medical - moderate - high VTE Device Contraindication: N/A - Device Ordered VTE Drug Contraindication: N/A - Med Ordered
--- NOTE | 2024-07-17 12:34 | PM.PNCARD ---
Subjective Subjective Date of Service: 07/17/24 Interval history: Seen examined at bedside. Feeling better. Physical Exam Vital Signs: Last Vital Signs Temp 97.2 F 07/17/24 11:50 Pulse 50 07/17/24 11:50 Resp 18 07/17/24 11:50 BP 98/52 L 07/17/24 11:50 Pulse Ox 97 07/17/24 11:50 O2 Del Method Nasal Cannula 07/17/24 11:50 O2 Flow Rate 2 07/17/24 11:50 BMI result Body Mass Index 35.1 GENERAL APPEARANCE: in no acute distress, on supplemental oxygen. NECK: no carotid bruit, + jugular venous distention. SKIN: no suspicious lesions, warm and dry. HEART: no murmurs, regular rate and rhythm. LUNGS: clear to auscultation bilaterally. ABDOMEN: soft, nontender. EXTREMITIES: 1 to 2+ edema. PERIPHERAL PULSES: equal. NEUROLOGIC: No gross deficits, AAO X 3 Objective Labs and Meds 07/15/24 12:23 07/17/24 05:37 Lab results: Laboratory Results - last 24 hr 07/17/24 05:37 Sodium 138 Potassium 3.3 Chloride 99 Carbon Dioxide 30 H Anion Gap 12 BUN 35 H Creatinine 1.63 H Estim Creat Clear Calc 23.5 Estimated GFR 30 Random Glucose 98 Calcium 8.5 Magnesium 1.4 L* B-Natriuretic Peptide 1924 H Progress Note: A&P Assessment and plan (1) Acute diastolic (congestive) heart failure: Status: Acute Plan Pleasant 89 year female with acute diastolic heart failure. Continues to be clinically volume overloaded. On Toprol-XL 50 mg daily. She is bradycardic. I think we should decrease the Toprol to 25 mg daily. Would favor continuing diuretics for now. We will have echocardiography done today. We will give further recommendations after echocardiography has been performed. Thank you for allowing me to participate in the care of your patient. Please feel free to contact me if you have any questions. Time Spent With Patient Time: Total time managing care of this patient today ____ minutes. Progress Note: Quality Stroke Does the patient have a stroke diagnosis?: No Procedures Date of Service Date of Service: 07/17/24
--- NOTE | 2024-07-17 15:55 | MHC.CM.PN ---
PER MD ROUNDS, PT NOT MEDICALLY READY TO DC, STILL REQUIRING IV IV DIURESIS. DCP: HOME VIA FAMILY TRANSPORT
[2024-07-17] MEDS: Atorvastatin Calcium 10 MG TABLET PO (20:31)
[2024-07-17] MEDS: Gabapentin 300 MG CAPSULE PO (20:31)
[2024-07-17] MEDS: Apixaban 2.5 MG TABLET PO (20:32)
[2024-07-18 03:02] VITALS: BP 115/58; PULSE 50; RESP 20; TEMP 36.5; O2SAT 92
[2024-07-18] MEDS: Omeprazole 20 MG CAPSULE.DR PO (05:41)
[2024-07-18 05:45] VITALS: BMI 35.0
[2024-07-18 07:31] VITALS: BP 96/52; PULSE 53; RESP 20; TEMP 36.9; O2SAT 91
[2024-07-18 07:36] LABS: B Type Natriuretic Peptide 1836 pg/mL (<100)
[2024-07-18 09:05] LABS: Anion Gap 13 (12-20); Blood Urea Nitrogen 34 mg/dL (9-16); Calcium 8.3 mg/dL (8.4-10.2); Carbon Dioxide 30 mmol/L (22-29); Chloride 98 mmol/L (96-108); Creatinine Clr Calc Pharmacy 27.3; Estimated Glomerular Filt Rate 35; Glucose Random 86 mg/dL (60-115); Magnesium 1.4 mg/dL (1.6-2.6); Potassium 2.8 mmol/L (3.3-5.1); Sodium 138 mmol/L (135-145)
[2024-07-18] MEDS: Cyanocobalamin (Vitamin B-12) 1,000 MCG TABLET 1000 MCG PO (09:07)
[2024-07-18] MEDS: Apixaban 2.5 MG TABLET PO ×2 (09:07→21:09)
[2024-07-18] MEDS: Furosemide 40 MG/4 ML VIAL IVPUSH (09:07)
[2024-07-18] MEDS: Doxycycline Monohydrate 100 MG CAPSULE PO ×2 (09:07→21:09)
[2024-07-18] MEDS: Metoprolol Succinate ER 50 MG TAB.ER.24H PO (09:07)
[2024-07-18] MEDS: 0.9 % Sodium Chloride Flush 3 ML SYRINGE IVFLUSH ×2 (09:07→21:10)
[2024-07-18] MEDS: Cholecalciferol (Vitamin D3) 25 MCG TABLET PO (09:07)
[2024-07-18] MEDS: Meclizine HCl 25 MG TABLET PO (09:07)
--- NOTE | 2024-07-18 10:24 | P.PNIM_ITS ---
Subjective Subjective Date of Service: 07/18/24 Interval History: Feeling good, no sob, low k, low mag Physical Exam 2 Vital Signs: Vital Signs: Last Vital Signs Temp 98.4 F 07/18/24 07:31 Pulse 53 07/18/24 07:31 Resp 20 07/18/24 07:31 BP 96/52 L 07/18/24 07:31 Pulse Ox 91 L 07/18/24 07:31 O2 Del Method Room Air 07/18/24 07:31 O2 Flow Rate 2 07/17/24 11:50 BMI result Body Mass Index 35.0 GENERAL APPEARANCE: in no acute distress, on supplemental oxygen. NECK: no carotid bruit, + jugular venous distention. SKIN: no suspicious lesions, warm and dry. HEART: no murmurs, regular rate and rhythm. LUNGS: clear to auscultation bilaterally. ABDOMEN: soft, nontender. EXTREMITIES: 2+ edema. PERIPHERAL PULSES: equal. NEUROLOGIC: No gross deficits, AAO X 3 Objective Data Active Medications Acetaminophen (Acetaminophen 325 Mg Tablet) 650 mg PO Q6H PRN PRN Reason: Pain, Mild 1-3,fever,headache Apixaban (Apixaban 2.5 Mg Tablet) 2.5 mg PO BID [facility] Last Admin: 07/18/24 09:07 Dose: 2.5 mg Documented By: NICHLELE Atorvastatin Calcium (Atorvastatin Calcium 10 Mg Tablet) 10 mg PO BEDTIME [facility] Last Admin: 07/17/24 20:31 Dose: 10 mg Documented By: GOVIND Calcium Carbonate (Calcium Carbonate 750 Mg Tab.Chew) 750 mg PO Q4H PRN PRN Reason: Heartburn Cyanocobalamin (Cyanocobalamin (Vitamin B-12) 1,000 Mcg Tablet) 1,000 mcg PO DAILY [facility] Last Admin: 07/18/24 09:07 Dose: 1,000 mcg Documented By: NICHELLE Doxycycline Monohydrate (Doxycycline Monohydrate 100 Mg Capsule) 100 mg PO BID [facility] Last Admin: 07/18/24 09:07 Dose: 100 mg Documented By: NICHELLE Furosemide (Furosemide 40 Mg/4 Ml Vial) 40 mg IVPUSH BID@0900,1800 [facility]; Protocol Last Admin: 07/18/24 09:07 Dose: 40 mg Documented By: NICHELLE Gabapentin (Gabapentin 300 Mg Capsule) 300 mg PO BEDTIME [facility] Last Admin: 07/17/24 20:31 Dose: 300 mg Documented By: GOVIND Magnesium Sulfate (Magnesium Sulfate/H2o) 2 gm in 50 mls @ 25 mls/hr IV ONCE ONE Stop: 07/18/24 11:18 Magnesium Hydroxide (Milk Of Magnesia 30 Ml Oral.Susp) 30 ml PO DAILY PRN PRN Reason: Constipation Meclizine HCl (Meclizine Hcl 25 Mg Tablet) 25 mg PO DAILY [facility] Last Admin: 07/18/24 09:07 Dose: 25 mg Documented By: NICHELLE Melatonin (Melatonin 3 Mg Tablet) 6 mg PO BEDTIME PRN PRN Reason: Insomnia Metoprolol Succinate (Metoprolol Succinate Er 50 Mg Tab.Er.24h) 50 mg PO DAILY [facility]; Protocol Last Admin: 07/18/24 09:07 Dose: 50 mg Documented By: NICHELLE Omeprazole (Omeprazole 20 Mg Capsule.Dr) 20 mg PO DAILY@0630 [facility] Last Admin: 07/18/24 05:41 Dose: 20 mg Documented By: GOVIND Ondansetron HCl (Ondansetron Hcl 4 Mg/2 Ml Vial) 4 mg IVPUSH Q4H PRN PRN Reason: Nausea and Vomiting Polyethylene Glycol (Polyethylene Glycol 3350 17 Gm Powd.Pack) 17 gm PO DAILY PRN PRN Reason: Constipation Sodium Chloride (0.9 % Sodium Chloride Flush 3 Ml Syringe) 3 ml IVFLUSH QSHIFT [facility] Last Admin: 07/18/24 09:07 Dose: 3 ml Documented By: NICHELLE Vitamin D (Cholecalciferol (Vitamin D3) 25 Mcg Tablet) 25 mcg PO DAILY [facility] Last Admin: 07/18/24 09:07 Dose: 25 mcg Documented By: NICHELLE Labs 07/15/24 12:23 07/18/24 06:34 Labs: Laboratory Results - last 24 hr 07/18/24 06:34 Anion Gap 13 Estim Creat Clear Calc 27.3 Estimated GFR 35 Random Glucose 86 Calcium 8.3 L Magnesium 1.4 L* B-Natriuretic Peptide 1836 H Microbiology Microbiology Results: Microbiology 07/15/24 17:40 Urine Culture - Final Urine clean catch - Clean Catch Midstream Escherichia coli Assessment and Plan (1) Acute exacerbation of CHF (congestive heart failure): Status: Acute Plan f for 89 year-old woman with HTN, paroxysmal AF and SSS s/p PPM and on apixaban, MARIELA not on CPAP, PVD, breast CA s/p lumpectomy, bladder CA, GERD, HLD, and gout presenting with leg edema and weight gain, found to have pulmonary edema likely due to CHF new-onset CHF, unknown EF - continue to diurese with IV furosemide 40 mg bid, monitor I/O [negative 500 mL thus far]+ lytes/BNP + weights, TTE pending, Cardiology consulted + following - she had a normal MPS on 03/03/23. Replace mag and K. Monitor BP as trending down acute hypoxic respiratory failure - supplemental O2, wean as tolerated cellulitis - PO doxycycline 07/16- CKD3 - unclear baseline, monitor SCr with diuresis [stable since admission] paroxysmal AF - continue apixaban, metoprolol succinate HTN - continue amlodipine, metoprolol succinate chronic vertigo - continue meclizine GERD - continue PPI HLD - continue statin VTE prophylaxis - apixaban dispo - eventual home with VNA In my clinical judgment, the patient requires continued inpatient hospitalization for the following reasons: IV diuresis, hypoxia Total time managing care of this patient today: 35 minutes. Quality Stroke Does the patient have a stroke diagnosis?: No VTE Prior VTE?: No VTE Risk Level:: Medical - moderate - high VTE Device Contraindication: N/A - Device Ordered VTE Drug Contraindication: N/A - Med Ordered
[2024-07-18] MEDS: Potassium Chloride ER 20 MEQ TAB.ER.PRT 40 MEQ PO (10:58)
[2024-07-18] MEDS: Magnesium Sulfate/H2O 2 GM/50 ML PIGGYBACK IV (10:59)
[2024-07-18 11:19] VITALS: BP 98/50; PULSE 53; RESP 18; TEMP 36.8; O2SAT 93
--- NOTE | 2024-07-18 12:08 | P.PNCA_ITS ---
Subjective Subjective Date of Service: 07/18/24 Interval history: Seen examined at bedside. Feeling fine. She is hypokalemic and hypomagnesemic. Echo results discussed with the patient. Physical Exam Vital Signs: Last Vital Signs Temp 98.2 F 07/18/24 11:19 Pulse 53 07/18/24 11:19 Resp 18 07/18/24 11:19 BP 98/50 L 07/18/24 11:19 Pulse Ox 93 07/18/24 11:19 O2 Del Method Room Air 07/18/24 11:19 O2 Flow Rate 2 07/17/24 11:50 BMI result Body Mass Index 35.0 GENERAL APPEARANCE: in no acute distress. NECK: no carotid bruit, + jugular venous distention. SKIN: no suspicious lesions, warm and dry. HEART: no murmurs, regular rate and rhythm. LUNGS: clear to auscultation bilaterally. ABDOMEN: soft, nontender. EXTREMITIES: 1 +edema. She also has lymphedema. PERIPHERAL PULSES: equal. NEUROLOGIC: No gross deficits, AAO X 3 Objective Labs and Meds 07/15/24 12:23 07/18/24 06:34 Lab results: Laboratory Results - last 24 hr 07/18/24 06:34 Sodium 138 Potassium 2.8 L* Chloride 98 Carbon Dioxide 30 H Anion Gap 13 BUN 34 H Creatinine 1.40 Estim Creat Clear Calc 27.3 Estimated GFR 35 Random Glucose 86 Calcium 8.3 L Magnesium 1.4 L* B-Natriuretic Peptide 1836 H Progress Note: A&P Assessment and plan (1) Acute diastolic (congestive) heart failure: Status: Acute Plan Pleasant 89 year female with acute diastolic heart failure. Continues to be clinically volume overloaded. We will hold further Lasix because she has low potassium and magnesium. These should be repleted. Toprol- XL decreased to 25 mg daily. I think she would benefit from spironolactone 25 mg daily but currently blood pressure is low and I would avoid it. Hold IV diuretics for now. Monitor electrolytes closely. Thank you for allowing me to participate in the care of your patient. Please feel free to contact me if you have any questions. Time Spent With Patient Time: Total time managing care of this patient today ____ minutes. Progress Note: Quality Stroke Does the patient have a stroke diagnosis?: No Procedures Date of Service Date of Service: 07/18/24
[2024-07-18] MEDS: Potassium Chloride/H20 10 MEQ/100 ML PIGGYBACK 100 MEQ IV ×2 (13:18→15:17)
[2024-07-18 15:38] VITALS: BP 102/63; PULSE 72; RESP 18; TEMP 37.2; O2SAT 96
[2024-07-18 20:00] VITALS: BP 111/57; PULSE 50; RESP 16; TEMP 36.2; O2SAT 92
--- NOTE | 2024-07-18 20:21 | HO.WOUND ---
Wound Consult: Initial 89yr old?female [place] [facility] - See progress notes and H&P for detailed history.? Wound consult placed for Intergluteal Fold.? Patient agreeable to assessment and photo documentation.? Patient denies incontinence and chart review confirms this, however the patient body habitus creates a large fold that appears to be trapping moisture. Intergluteal Etiology: ? MASD Present on Admission Wound Bed: red pink moist blanchable tissue Drainage / Odor: none noted Edges: ? mirrored and attached Lolis wound: intact ? No Induration, Fluctuance or Warmth noted Pain: tenderness reported when cleansed Goals of Treatment: ? Triad to allow for wound healing and protect from friction and moisture Recommendations: 1. Turn and Reposition every 2 hours and as needed for patient comfort.? Use pillows or wedges to support off loading positions. 2. Off Load all bony prominences with use of pillows and heel boots if needed.? Apply Preventative foams where needed.? 3. Monitor for incontinence and moisture control, use barrier creams when needed for prevention and treatment. 4. Provide adequate and supplemental nutrition.? 5. Order or Continue low air loss mattress. 6. When applicable maintain blood glucose levels per Providers order. 7.?Intergluteal - Off Load Pressure with Q2 hr turns and use of pillows - Cleanse with PH balance spray or wipes, pat dry. ?Apply thin layer of Triad to wound bed - only pat and dab no scrub and rub when soiling occurs. Reapply twice daily and PRN. Waffle cushion when up to chair. Re-consult wound care Nurse for wound deterioration or wound changes.
[2024-07-18] MEDS: Gabapentin 300 MG CAPSULE PO (21:09)
[2024-07-18] MEDS: Atorvastatin Calcium 10 MG TABLET PO (21:09)
[2024-07-19] VITALS (8 sets, daily range): BP systolic 103–125; BP diastolic 51–64; PULSE 50–66; RESP 12–20; TEMP 36.6–37.3; O2SAT 91–97; BMI 35.4
[2024-07-19] MEDS: Doxycycline Monohydrate 100 MG CAPSULE PO ×2 (08:50→20:00)
[2024-07-19] MEDS: Apixaban 2.5 MG TABLET PO ×2 (08:50→20:00)
[2024-07-19] MEDS: Cyanocobalamin (Vitamin B-12) 1,000 MCG TABLET 1000 MCG PO (08:50)
[2024-07-19] MEDS: Cholecalciferol (Vitamin D3) 25 MCG TABLET PO (08:50)
[2024-07-19] MEDS: Meclizine HCl 25 MG TABLET PO (08:50)
[2024-07-19] MEDS: Spironolactone 25 MG TABLET PO (08:50)
[2024-07-19] MEDS: 0.9 % Sodium Chloride Flush 3 ML SYRINGE IVFLUSH ×3 (08:51→20:01)
[2024-07-19] MEDS: Furosemide 40 MG/4 ML VIAL IVPUSH ×2 (09:21→17:04)
--- NOTE | 2024-07-19 10:38 | MHC.CM.PN ---
Per ROUNDS discussion, Patient is not yet medically cleared for dc (IV Lasix); home with services is the goal and CM will continue to follow.
[2024-07-19 10:52] LABS: Anion Gap 15 (12-20); Blood Urea Nitrogen 33 mg/dL (9-16); Calcium 9.1 mg/dL (8.4-10.2); Carbon Dioxide 30 mmol/L (22-29); Chloride 96 mmol/L (96-108); Creatinine Clr Calc Pharmacy 28.1; Estimated Glomerular Filt Rate 36; Glucose Random 108 mg/dL (60-115); Magnesium 1.7 mg/dL (1.6-2.6); Potassium 3.3 mmol/L (3.3-5.1); Sodium 138 mmol/L (135-145)
--- NOTE | 2024-07-19 12:12 | PM.PNCARD ---
Subjective Subjective Date of Service: 07/19/24 Interval history: Short of breath and wheezing. Physical Exam Vital Signs: Last Vital Signs Temp 97.8 F 07/19/24 11:42 Pulse 50 07/19/24 11:42 Resp 18 07/19/24 11:42 BP 104/59 L 07/19/24 11:42 Pulse Ox 94 07/19/24 11:42 O2 Del Method Room Air 07/19/24 11:42 O2 Flow Rate 2 07/19/24 07:23 BMI result Body Mass Index 35.4 GENERAL APPEARANCE: in no acute distress. NECK: no carotid bruit, + jugular venous distention to angle of jaw. SKIN: no suspicious lesions, warm and dry. HEART: no murmurs, regular rate and rhythm. LUNGS: Bilateral crackles to mid lungs. ABDOMEN: soft, nontender. EXTREMITIES: 1 +edema. She also has lymphedema. PERIPHERAL PULSES: equal. NEUROLOGIC: No gross deficits, AAO X 3 Objective Labs and Meds 07/15/24 12:23 07/19/24 10:00 Lab results: Laboratory Results - last 24 hr 07/19/24 10:00 Sodium 138 Potassium 3.3 Chloride 96 Carbon Dioxide 30 H Anion Gap 15 BUN 33 H Creatinine 1.37 Estim Creat Clear Calc 28.1 Estimated GFR 36 Random Glucose 108 Calcium 9.1 D Magnesium 1.7 Progress Note: A&P Assessment and plan (1) Acute diastolic (congestive) heart failure: Status: Acute Plan Pleasant 89 year female with acute diastolic heart failure. Due to hypokalemia and hypomagnesemia her diuretics were held yesterday. Today she is more short of breath and wheezing. Significantly volume overloaded and has bilateral crackles. Resume the diuretics. Added spironolactone 25 mg daily. This will be titrated to hopefully improve the potassium. Stop the omeprazole as it can cause magnesium absorption issues. We will follow along with you. Currently not ready for discharge. Hopefully with spironolactone and diuretics combination she can tolerate diuresis without significant electrolyte issues. Thank you for allowing me to participate in the care of your patient. Please feel free to contact me if you have any questions. Time Spent With Patient Time: Total time managing care of this patient today ____ minutes. Progress Note: Quality Stroke Does the patient have a stroke diagnosis?: No Procedures Date of Service Date of Service: 07/19/24
--- NOTE | 2024-07-19 15:38 | P.PNIM_ITS ---
Subjective Subjective Date of Service: 07/19/24 Interval History: Remains fluid overloaded but feels better, potassium is better Physical Exam 2 Vital Signs: Vital Signs: Last Vital Signs Temp 99.2 F 07/19/24 15:35 Pulse 50 07/19/24 15:35 Resp 20 07/19/24 15:35 BP 108/55 L 07/19/24 15:35 Pulse Ox 93 07/19/24 15:35 O2 Del Method Nasal Cannula 07/19/24 15:35 O2 Flow Rate 2 07/19/24 15:35 BMI result Body Mass Index 35.4 GENERAL APPEARANCE: in no acute distress. NECK: no carotid bruit, + jugular venous distention to angle of jaw. SKIN: no suspicious lesions, warm and dry. HEART: no murmurs, regular rate and rhythm. LUNGS: Bilateral crackles to mid lungs. ABDOMEN: soft, nontender. EXTREMITIES: 1 +edema. She also has lymphedema. PERIPHERAL PULSES: equal. NEUROLOGIC: No gross deficits, AAO X 3 Objective Data Active Medications Acetaminophen (Acetaminophen 325 Mg Tablet) 650 mg PO Q6H PRN PRN Reason: Pain, Mild 1-3,fever,headache Apixaban (Apixaban 2.5 Mg Tablet) 2.5 mg PO BID [facility] Last Admin: 07/19/24 08:50 Dose: 2.5 mg Documented By: MICHAEL Atorvastatin Calcium (Atorvastatin Calcium 10 Mg Tablet) 10 mg PO BEDTIME [facility] Last Admin: 07/18/24 21:09 Dose: 10 mg Documented By: SUAD Calcium Carbonate (Calcium Carbonate 750 Mg Tab.Chew) 750 mg PO Q4H PRN PRN Reason: Heartburn Cyanocobalamin (Cyanocobalamin (Vitamin B-12) 1,000 Mcg Tablet) 1,000 mcg PO DAILY [facility] Last Admin: 07/19/24 08:50 Dose: 1,000 mcg Documented By: MICHAEL Doxycycline Monohydrate (Doxycycline Monohydrate 100 Mg Capsule) 100 mg PO BID [facility] Last Admin: 07/19/24 08:50 Dose: 100 mg Documented By: MICHAEL Furosemide (Furosemide 40 Mg/4 Ml Vial) 40 mg IVPUSH BID@0900,1800 [facility]; Protocol Last Admin: 07/19/24 09:21 Dose: 40 mg Documented By: MICHAEL Gabapentin (Gabapentin 300 Mg Capsule) 300 mg PO BEDTIME [facility] Last Admin: 07/18/24 21:09 Dose: 300 mg Documented By: SUAD Magnesium Hydroxide (Milk Of Magnesia 30 Ml Oral.Susp) 30 ml PO DAILY PRN PRN Reason: Constipation Meclizine HCl (Meclizine Hcl 25 Mg Tablet) 25 mg PO DAILY [facility] Last Admin: 07/19/24 08:50 Dose: 25 mg Documented By: MICHAEL Melatonin (Melatonin 3 Mg Tablet) 6 mg PO BEDTIME PRN PRN Reason: Insomnia Metoprolol Succinate (Metoprolol Succinate Er 25 Mg Tab.Er.24h) 25 mg PO DAILY [facility]; Protocol Last Admin: 07/19/24 08:23 Dose: Not Given Documented By: MICHAEL Non-Admin Reason: Physician Held Med Omeprazole (Omeprazole 20 Mg Capsule.Dr) 20 mg PO DAILY@0630 [facility] Last Admin: 07/19/24 06:08 Dose: Not Given Documented By: SUAD Non-Admin Reason: Patient Refused Ondansetron HCl (Ondansetron Hcl 4 Mg/2 Ml Vial) 4 mg IVPUSH Q4H PRN PRN Reason: Nausea and Vomiting Polyethylene Glycol (Polyethylene Glycol 3350 17 Gm Powd.Pack) 17 gm PO DAILY PRN PRN Reason: Constipation Sodium Chloride (0.9 % Sodium Chloride Flush 3 Ml Syringe) 3 ml IVFLUSH QSHIFT [facility] Last Admin: 07/19/24 08:51 Dose: 3 ml Documented By: MICHAEL Spironolactone (Spironolactone 25 Mg Tablet) 25 mg PO DAILY [facility]; Protocol Last Admin: 07/19/24 08:50 Dose: 25 mg Documented By: MICHAEL Vitamin D (Cholecalciferol (Vitamin D3) 25 Mcg Tablet) 25 mcg PO DAILY [facility] Last Admin: 07/19/24 08:50 Dose: 25 mcg Documented By: MICHAEL Labs 07/15/24 12:23 07/19/24 10:00 Labs: Laboratory Results - last 24 hr 07/19/24 10:00 Anion Gap 15 Estim Creat Clear Calc 28.1 Estimated GFR 36 Random Glucose 108 Calcium 9.1 D Magnesium 1.7 Assessment and Plan (1) Acute exacerbation of CHF (congestive heart failure): Status: Acute Plan 89 year-old woman with HTN, paroxysmal AF and SSS s/p PPM and on apixaban, MARIELA not on CPAP, PVD, breast CA s/p lumpectomy, bladder CA, GERD, HLD, and gout presenting with leg edema and weight gain, found to have pulmonary edema likely due to CHF new-onset CHF, EF 60 to 65 continue IV Lasix 40 bid and monitor I/O, thus far negative 1400 monitor lytes/BNP + weights, cardiology following - she had a normal MPS on 03/03/23. Replace mag and K as needed. acute hypoxic respiratory failure - supplemental O2, wean as tolerated cellulitis - PO doxycycline 07/16- CKD3 - unclear baseline, monitor SCr with diuresis [stable since admission] paroxysmal AF - continue apixaban, metoprolol succinate HTN - continue amlodipine, metoprolol succinate chronic vertigo - continue meclizine GERD - continue PPI HLD - continue statin VTE prophylaxis - apixaban dispo - eventual home with VNA In my clinical judgment, the patient requires continued inpatient hospitalization for the following reasons: IV diuresis, hypoxia Total time managing care of this patient today: 35 minutes. Quality Stroke Does the patient have a stroke diagnosis?: No VTE Prior VTE?: No VTE Risk Level:: Medical - moderate - high VTE Device Contraindication: N/A - Device Ordered VTE Drug Contraindication: N/A - Med Ordered
--- NOTE | 2024-07-19 19:14 | P.CDIM_ITS ---
PROVIDER RESPONSE TEXT: To clarify, the appropriate diagnosis supported by the clinical indicators: Cellulitis bilateral lower extremities QUERY TEXT: PHYSICIAN'S DOCUMENTATION REQUEST Date of Query: 07/19/2024 10:38 AM EDT Patient Name: Gricelda Fischer Admit Date: 07/15/2024 Dear Abelino Garza MD, A review of the medical record indicates additional documentation may be needed. Please review below and update the documentation accordingly. Clinical Indicators: patient with PMH: PVD presented with leg edema, CHF note states Cellulitis treat with oral doxycycline The following diagnoses or signs and symptoms were noted in the patient record: worsening bilateral leg swelling with some redness of the right more than the left cobb Based on the above, could you clarify the appropriate diagnosis, if significant, that supports the ab ove abnormalities and additional evaluation, monitoring, and/or treatment rendered: Cellulitis bilateral lower extremities Cellulitis right lower extremity Cellulitis left lower extremity Other (explain) Clinically unable to determine (explain) Thank you, Cherise Werner RN Use of terms such as suspected, likely, concern for, or probable (associated with a specific diagnosi s that is being evaluated, monitored, or treated as if it exists) are acceptable and can be coded in the inpatient se tting, when documented at the time of discharge. Please use your independent medical judgment in providing your response. THIS QUERY IS PART OF THE PERMANENT MEDICAL RECORD
[2024-07-19] MEDS: Gabapentin 300 MG CAPSULE PO (20:00)
[2024-07-19] MEDS: Atorvastatin Calcium 10 MG TABLET PO (20:00)
[2024-07-20] VITALS (7 sets, daily range): BP systolic 92–118; BP diastolic 45–68; PULSE 50–60; RESP 16–20; TEMP 36.3–37.2; O2SAT 90–97; BMI 35.7
[2024-07-20] MEDS: 0.9 % Sodium Chloride Flush 3 ML SYRINGE IVFLUSH ×2 (08:09→20:23)
[2024-07-20] MEDS: Spironolactone 25 MG TABLET PO ×2 (08:09→20:23)
[2024-07-20] MEDS: Doxycycline Monohydrate 100 MG CAPSULE PO ×2 (08:09→20:23)
[2024-07-20] MEDS: Cyanocobalamin (Vitamin B-12) 1,000 MCG TABLET 1000 MCG PO (08:09)
[2024-07-20] MEDS: Furosemide 40 MG/4 ML VIAL IVPUSH (08:09)
[2024-07-20] MEDS: Apixaban 2.5 MG TABLET PO ×2 (08:10→20:23)
[2024-07-20] MEDS: Meclizine HCl 25 MG TABLET PO (08:10)
[2024-07-20] MEDS: Cholecalciferol (Vitamin D3) 25 MCG TABLET PO (08:10)
[2024-07-20] MEDS: Metoprolol Succinate ER 25 MG TAB.ER.24H PO (08:10)
--- NOTE | 2024-07-20 09:17 | HO.PM.IMPN ---
Subjective Subjective Date of Service: 07/20/24 Interval History: Remains fluid overloaded but overall better, 2600 cc fluid negative Physical Exam Vital Signs: Vital Signs: Last Vital Signs Temp 97.9 F 07/20/24 07:29 Pulse 52 07/20/24 07:29 Resp 18 07/20/24 07:29 BP 118/45 L 07/20/24 07:29 Pulse Ox 95 07/20/24 07:29 O2 Del Method Nasal Cannula 07/20/24 07:29 O2 Flow Rate 2 07/20/24 07:29 BMI result Body Mass Index 35.7 GENERAL APPEARANCE: in no acute distress. NECK: no carotid bruit, + jugular venous distention to angle of jaw. SKIN: no suspicious lesions, warm and dry. HEART: no murmurs, regular rate and rhythm. LUNGS: Bilateral crackles to mid lungs. ABDOMEN: soft, nontender. EXTREMITIES: 1 +edema. She also has lymphedema. PERIPHERAL PULSES: equal. NEUROLOGIC: No gross deficits, AAO X 3 Objective Data Active Medications Acetaminophen (Acetaminophen 325 Mg Tablet) 650 mg PO Q6H PRN PRN Reason: Pain, Mild 1-3,fever,headache Apixaban (Apixaban 2.5 Mg Tablet) 2.5 mg PO BID [facility] Last Admin: 07/20/24 08:10 Dose: 2.5 mg Documented By: ARIANNA Atorvastatin Calcium (Atorvastatin Calcium 10 Mg Tablet) 10 mg PO BEDTIME [facility] Last Admin: 07/19/24 20:00 Dose: 10 mg Documented By: SUAD Calcium Carbonate (Calcium Carbonate 750 Mg Tab.Chew) 750 mg PO Q4H PRN PRN Reason: Heartburn Cyanocobalamin (Cyanocobalamin (Vitamin B-12) 1,000 Mcg Tablet) 1,000 mcg PO DAILY [facility] Last Admin: 07/20/24 08:09 Dose: 1,000 mcg Documented By: ARIANNA Doxycycline Monohydrate (Doxycycline Monohydrate 100 Mg Capsule) 100 mg PO BID [facility] Last Admin: 07/20/24 08:09 Dose: 100 mg Documented By: ARIANNA Furosemide (Furosemide 40 Mg/4 Ml Vial) 40 mg IVPUSH BID@0900,1800 [facility]; Protocol Last Admin: 07/20/24 08:09 Dose: 40 mg Documented By: ARIANNA Gabapentin (Gabapentin 300 Mg Capsule) 300 mg PO BEDTIME [facility] Last Admin: 07/19/24 20:00 Dose: 300 mg Documented By: SUAD Magnesium Hydroxide (Milk Of Magnesia 30 Ml Oral.Susp) 30 ml PO DAILY PRN PRN Reason: Constipation Meclizine HCl (Meclizine Hcl 25 Mg Tablet) 25 mg PO DAILY [facility] Last Admin: 07/20/24 08:10 Dose: 25 mg Documented By: ARIANNA Melatonin (Melatonin 3 Mg Tablet) 6 mg PO BEDTIME PRN PRN Reason: Insomnia Metoprolol Succinate (Metoprolol Succinate Er 25 Mg Tab.Er.24h) 25 mg PO DAILY [facility]; Protocol Last Admin: 07/20/24 08:10 Dose: 25 mg Documented By: ARIANNA Omeprazole (Omeprazole 20 Mg Capsule.Dr) 20 mg PO DAILY@0630 [facility] Last Admin: 07/20/24 05:30 Dose: Not Given Documented By: SUAD Non-Admin Reason: Patient Refused Ondansetron HCl (Ondansetron Hcl 4 Mg/2 Ml Vial) 4 mg IVPUSH Q4H PRN PRN Reason: Nausea and Vomiting Polyethylene Glycol (Polyethylene Glycol 3350 17 Gm Powd.Pack) 17 gm PO DAILY PRN PRN Reason: Constipation Sodium Chloride (0.9 % Sodium Chloride Flush 3 Ml Syringe) 3 ml IVFLUSH QSHIFT [facility] Last Admin: 07/20/24 08:09 Dose: 3 ml Documented By: ARIANNA Spironolactone (Spironolactone 25 Mg Tablet) 25 mg PO DAILY [facility]; Protocol Last Admin: 07/20/24 08:09 Dose: 25 mg Documented By: ARIANNA Vitamin D (Cholecalciferol (Vitamin D3) 25 Mcg Tablet) 25 mcg PO DAILY [facility] Last Admin: 07/20/24 08:10 Dose: 25 mcg Documented By: ARIANNA Labs 07/15/24 12:23 07/19/24 10:00 Labs: Laboratory Results - last 24 hr 07/19/24 10:00 Anion Gap 15 Estim Creat Clear Calc 28.1 Estimated GFR 36 Random Glucose 108 Calcium 9.1 D Magnesium 1.7 Assessment and Plan (1) Acute exacerbation of CHF (congestive heart failure): Status: Acute Plan 89 year-old woman with HTN, paroxysmal AF and SSS s/p PPM and on apixaban, MARIELA not on CPAP, PVD, breast CA s/p lumpectomy, bladder CA, GERD, HLD, and gout presenting with leg edema and weight gain, found to have pulmonary edema likely due to CHF new-onset CHF, EF 60 to 65 continue IV Lasix 40 bid and monitor I/O, thus far negative 2600 continue Aldactone 25 mg daily monitor lytes/BNP + weights, cardiology following she had a normal myocardial perfusion study (MPS) on 03/03/23. Replace mag and K as needed. acute hypoxic respiratory failure - supplemental O2, wean as tolerated cellulitis - PO doxycycline 07/16- CKD3 - unclear baseline, monitor SCr with diuresis [stable since admission] paroxysmal AF - continue apixaban, metoprolol succinate HTN - continue amlodipine, metoprolol succinate chronic vertigo - continue meclizine GERD - continue PPI HLD - continue statin VTE prophylaxis - apixaban dispo - eventual home with VNA In my clinical judgment, the patient requires continued inpatient hospitalization for the following reasons: IV diuresis, hypoxia Total time managing care of this patient today: 35 minutes. Quality Stroke Does the patient have a stroke diagnosis?: No VTE Prior VTE?: No VTE Risk Level:: Medical - moderate - high VTE Device Contraindication: N/A - Device Ordered VTE Drug Contraindication: N/A - Med Ordered
[2024-07-20 09:43] LABS: Anion Gap 14 (12-20); Blood Urea Nitrogen 29 mg/dL (9-16); Calcium 9.2 mg/dL (8.4-10.2); Carbon Dioxide 34 mmol/L (22-29); Chloride 94 mmol/L (96-108); Creatinine Clr Calc Pharmacy 31.9; Estimated Glomerular Filt Rate 42; Glucose Random 85 mg/dL (60-115); Sodium 139 mmol/L (135-145)
[2024-07-20 09:46] LABS: Potassium 2.8 mmol/L (3.3-5.1)
[2024-07-20] MEDS: Potassium Chloride ER 20 MEQ TAB.ER.PRT 40 MEQ PO (09:54)
[2024-07-20] MEDS: Potassium Chloride/H20 10 MEQ/100 ML PIGGYBACK 100 MEQ IV ×4 (10:52→15:36)
--- NOTE | 2024-07-20 16:22 | PM.PNCARD ---
Subjective Subjective Date of Service: 07/20/24 Interval history: Seen examined at bedside. Feeling little better compared to yesterday. Physical Exam Vital Signs: Last Vital Signs Temp 97.4 F 07/20/24 15:26 Pulse 60 07/20/24 15:26 Resp 18 07/20/24 15:26 BP 109/68 07/20/24 15:26 Pulse Ox 93 07/20/24 15:26 O2 Del Method Room Air 07/20/24 15:26 O2 Flow Rate 2 07/20/24 07:29 BMI result Body Mass Index 35.7 GENERAL APPEARANCE: in no acute distress. NECK: no carotid bruit, + jugular venous distention to angle of jaw. SKIN: no suspicious lesions, warm and dry. HEART: no murmurs, regular rate and rhythm. LUNGS: Bilateral crackles at bases. ABDOMEN: soft, nontender. EXTREMITIES: 1 +edema. She also has lymphedema. PERIPHERAL PULSES: equal. NEUROLOGIC: No gross deficits, AAO X 3 Objective Labs and Meds 07/15/24 12:23 07/20/24 09:06 Lab results: Laboratory Results - last 24 hr 07/20/24 09:06 Sodium 139 Potassium 2.8 L* Chloride 94 L Carbon Dioxide 34 H Anion Gap 14 BUN 29 H Creatinine 1.21 Estim Creat Clear Calc 31.9 Estimated GFR 42 Random Glucose 85 Calcium 9.2 Progress Note: A&P Assessment and plan (1) Acute diastolic (congestive) heart failure: Status: Acute Plan Pleasant 89 year female with acute diastolic heart failure. Due to hypokalemia and hypomagnesemia her diuretics were held for 1 day but she developed significant shortness of breath and wheezing. She was started back on IV diuretics along with spironolactone. Potassium continues to be low and she is getting repletion. Titrating spironolactone 25 mg twice a day. Overall clinically she is improving and feeling better and her breathing has improved significantly but she continues to be volume overloaded at this point. We will continue to diurese her for now. Monitor electrolytes closely. Ppi has been held because of hypomagnesemia. Thank you for allowing me to participate in the care of your patient. Please feel free to contact me if you have any questions. Time Spent With Patient Time: Total time managing care of this patient today ____ minutes. Progress Note: Quality Stroke Does the patient have a stroke diagnosis?: No Procedures Date of Service Date of Service: 07/20/24
[2024-07-20] MEDS: Gabapentin 300 MG CAPSULE PO (20:23)
[2024-07-20] MEDS: Atorvastatin Calcium 10 MG TABLET PO (20:23)
[2024-07-20 22:20] LABS: Anion Gap 15 (12-20); Carbon Dioxide 33 mmol/L (22-29); Chloride 95 mmol/L (96-108); Potassium 3.7 mmol/L (3.3-5.1); Sodium 139 mmol/L (135-145)
[2024-07-21] VITALS (7 sets, daily range): BP systolic 98–135; BP diastolic 47–64; PULSE 50–87; RESP 17–20; TEMP 36.3–37.1; O2SAT 93–96
[2024-07-21 07:42] LABS: Anion Gap 13 (12-20); Blood Urea Nitrogen 31 mg/dL (9-16); Calcium 8.6 mg/dL (8.4-10.2); Carbon Dioxide 33 mmol/L (22-29); Chloride 98 mmol/L (96-108); Creatinine Clr Calc Pharmacy 31.6; Estimated Glomerular Filt Rate 42; Glucose Random 77 mg/dL (60-115); Potassium 3.8 mmol/L (3.3-5.1); Sodium 140 mmol/L (135-145)
[2024-07-21] MEDS: Cyanocobalamin (Vitamin B-12) 1,000 MCG TABLET 1000 MCG PO (09:03)
[2024-07-21] MEDS: Cholecalciferol (Vitamin D3) 25 MCG TABLET PO (09:03)
[2024-07-21] MEDS: Doxycycline Monohydrate 100 MG CAPSULE PO ×2 (09:03→20:25)
[2024-07-21] MEDS: Apixaban 2.5 MG TABLET PO ×2 (09:03→20:25)
[2024-07-21] MEDS: Meclizine HCl 25 MG TABLET PO (09:03)
[2024-07-21] MEDS: 0.9 % Sodium Chloride Flush 3 ML SYRINGE IVFLUSH ×2 (09:05→20:25)
--- NOTE | 2024-07-21 10:31 | MHC.CM.PN ---
Per ROUNDS discussion, Patient is not yet medically cleared for dc (IV Lasix); PT is recommending home with services and CM will continue to follow.
--- NOTE | 2024-07-21 11:42 | HO.PM.IMPN ---
Subjective Subjective Date of Service: 07/21/24 Interval History: Clinically fluid overloaded blood pressure on low side K is better, so far negative 3570 Physical Exam Vital Signs: Vital Signs: Last Vital Signs Temp 98.0 F 07/21/24 07:29 Pulse 50 07/21/24 07:29 Resp 18 07/21/24 07:29 BP 98/50 L 07/21/24 07:29 Pulse Ox 96 07/21/24 07:29 O2 Del Method Nasal Cannula 07/21/24 07:29 O2 Flow Rate 2 07/21/24 07:29 BMI result Body Mass Index 35.7 Const: Other: General: AO X 3, no acute distress Resp: CTA bilateral CVS: S1,S2,RRR, + jvd, tense leg edema juan miguel GI: +BS, NT, no distention Skin: No rash Neuro: motor grossly intact Psych: appropriate affect Objective Data Active Medications Acetaminophen (Acetaminophen 325 Mg Tablet) 650 mg PO Q6H PRN PRN Reason: Pain, Mild 1-3,fever,headache Apixaban (Apixaban 2.5 Mg Tablet) 2.5 mg PO BID [facility] Last Admin: 07/21/24 09:03 Dose: 2.5 mg Documented By: ARIANNA Atorvastatin Calcium (Atorvastatin Calcium 10 Mg Tablet) 10 mg PO BEDTIME [facility] Last Admin: 07/20/24 20:23 Dose: 10 mg Documented By: HOWIEZEKellie Calcium Carbonate (Calcium Carbonate 750 Mg Tab.Chew) 750 mg PO Q4H PRN PRN Reason: Heartburn Cyanocobalamin (Cyanocobalamin (Vitamin B-12) 1,000 Mcg Tablet) 1,000 mcg PO DAILY [facility] Last Admin: 07/21/24 09:03 Dose: 1,000 mcg Documented By: ARIANNA Doxycycline Monohydrate (Doxycycline Monohydrate 100 Mg Capsule) 100 mg PO BID [facility] Last Admin: 07/21/24 09:03 Dose: 100 mg Documented By: ARIANNA Furosemide (Furosemide 40 Mg/4 Ml Vial) 40 mg IVPUSH BID@0900,1800 [facility]; Protocol Last Admin: 07/20/24 19:05 Dose: Not Given Documented By: ARIANNA Non-Admin Reason: Decreased Blood Pressure Gabapentin (Gabapentin 300 Mg Capsule) 300 mg PO BEDTIME [facility] Last Admin: 07/20/24 20:23 Dose: 300 mg Documented By: DHARA Magnesium Hydroxide (Milk Of Magnesia 30 Ml Oral.Susp) 30 ml PO DAILY PRN PRN Reason: Constipation Meclizine HCl (Meclizine Hcl 25 Mg Tablet) 25 mg PO DAILY [facility] Last Admin: 07/21/24 09:03 Dose: 25 mg Documented By: ARIANNA Melatonin (Melatonin 3 Mg Tablet) 6 mg PO BEDTIME PRN PRN Reason: Insomnia Metoprolol Succinate (Metoprolol Succinate Er 25 Mg Tab.Er.24h) 25 mg PO DAILY [facility]; Protocol Last Admin: 07/20/24 08:10 Dose: 25 mg Documented By: ARIANNA Omeprazole (Omeprazole 20 Mg Capsule.Dr) 20 mg PO DAILY@0630 [facility] Last Admin: 07/21/24 06:20 Dose: Not Given Documented By: DHARA Non-Admin Reason: Patient Refused Ondansetron HCl (Ondansetron Hcl 4 Mg/2 Ml Vial) 4 mg IVPUSH Q4H PRN PRN Reason: Nausea and Vomiting Polyethylene Glycol (Polyethylene Glycol 3350 17 Gm Powd.Pack) 17 gm PO DAILY PRN PRN Reason: Constipation Potassium Chloride (Potassium Chloride Er 20 Meq Tab.Er.Prt) 40 meq PO DAILY [facility] Sodium Chloride (0.9 % Sodium Chloride Flush 3 Ml Syringe) 3 ml IVFLUSH QSHIFT [facility] Last Admin: 07/21/24 09:05 Dose: 3 ml Documented By: ARIANNA Spironolactone (Spironolactone 25 Mg Tablet) 25 mg PO BID [facility]; Protocol Last Admin: 07/20/24 20:23 Dose: 25 mg Documented By: DHARA Vitamin D (Cholecalciferol (Vitamin D3) 25 Mcg Tablet) 25 mcg PO DAILY [facility] Last Admin: 07/21/24 09:03 Dose: 25 mcg Documented By: ARIANNA Labs 07/15/24 12:23 07/21/24 06:31 Labs: Laboratory Results - last 24 hr 07/20/24 07/21/24 21:53 06:31 Hold Purple Top SEE NOTE Anion Gap 15 13 Estim Creat Clear Calc 31.6 Estimated GFR 42 Random Glucose 77 Calcium 8.6 D Assessment and Plan (1) Acute exacerbation of CHF (congestive heart failure): Status: Acute Plan 89 year-old woman with HTN, paroxysmal AF and SSS s/p PPM and on apixaban, MARIELA not on CPAP, PVD, breast CA s/p lumpectomy, bladder CA, GERD, HLD, and gout presenting with leg edema and weight gain, found to have pulmonary edema likely due to CHF new-onset CHF, EF 60 to 65 continue IV Lasix 40 bid and monitor I/O, thus far negative 3570 continue Aldactone 25 mg daily, watch K monitor lytes/BNP + weights, cardiology following she had a normal myocardial perfusion study (MPS) on 03/03/23. Replace mag and K as needed. acute hypoxic respiratory failure supplemental O2, wean as tolerated cellulitis, improved PO doxycycline 07/16-, stop tomorrow CKD3 unclear baseline, monitor SCr with diuresis [stable since admission] paroxysmal AF - continue apixaban, metoprolol succinate (hold with bradycardia) HTN amlodipine stopped d/t low bp, metoprolol succinate as above chronic vertigo - continue meclizine GERD - continue PPI HLD - continue statin VTE prophylaxis - apixaban dispo - eventual home with [facility]NA In my clinical judgment, the patient requires continued inpatient hospitalization for the following reasons: IV diuresis, hypoxia Total time managing care of this patient today: 35 minutes. Quality Stroke Does the patient have a stroke diagnosis?: No VTE Prior VTE?: No VTE Risk Level:: Medical - moderate - high VTE Device Contraindication: N/A - Device Ordered VTE Drug Contraindication: N/A - Med Ordered
[2024-07-21] MEDS: Potassium Chloride ER 20 MEQ TAB.ER.PRT 40 MEQ PO (11:52)
[2024-07-21] MEDS: Furosemide 40 MG/4 ML VIAL IVPUSH ×2 (11:53→17:56)
[2024-07-21] MEDS: Spironolactone 25 MG TABLET PO ×2 (11:53→20:25)
[2024-07-21 12:31] LABS: Magnesium 1.2 mg/dL (1.6-2.6)
[2024-07-21] MEDS: Magnesium Sulfate/H2O 2 GM/50 ML PIGGYBACK IV ×2 (14:39→16:56)
[2024-07-21] MEDS: Atorvastatin Calcium 10 MG TABLET PO (20:25)
[2024-07-21] MEDS: Gabapentin 300 MG CAPSULE PO (20:25)
--- NOTE | 2024-07-21 22:23 | PM.PNCARD ---
Subjective Subjective Date of Service: 07/21/24 Interval history: Seen examined at bedside. Clinically improving. Creatinine stable. Potassium is better than yesterday. Physical Exam Vital Signs: Last Vital Signs Temp 97.6 F 07/21/24 19:20 Pulse 61 07/21/24 19:20 Resp 18 07/21/24 19:20 BP 110/59 L 07/21/24 19:20 Pulse Ox 95 07/21/24 19:20 O2 Del Method Room Air 07/21/24 19:20 O2 Flow Rate 2 07/21/24 11:48 BMI result Body Mass Index 35.7 GENERAL APPEARANCE: in no acute distress. NECK: no carotid bruit, + jugular venous distention to angle of jaw. SKIN: no suspicious lesions, warm and dry. HEART: no murmurs, regular rate and rhythm. LUNGS: Bilateral crackles at bases. ABDOMEN: soft, nontender. EXTREMITIES: 1 +edema. She also has lymphedema. PERIPHERAL PULSES: equal. NEUROLOGIC: No gross deficits, AAO X 3 Objective Labs and Meds 07/15/24 12:23 07/21/24 06:31 Lab results: Laboratory Results - last 24 hr 07/21/24 06:31 Hold Purple Top SEE NOTE Sodium 140 Potassium 3.8 Chloride 98 Carbon Dioxide 33 H Anion Gap 13 BUN 31 H Creatinine 1.22 Estim Creat Clear Calc 31.6 Estimated GFR 42 Random Glucose 77 Calcium 8.6 D Magnesium 1.2 L* Progress Note: A&P Assessment and plan (1) Acute diastolic (congestive) heart failure: Status: Acute Plan Pleasant 89 year female with acute diastolic heart failure. Due to hypokalemia and hypomagnesemia her diuretics were held for 1 day but she developed significant shortness of breath and wheezing. She was started back on IV diuretics along with spironolactone. Potassium improving spironolactone 25 mg twice a day. Continue to diurese for now. Hopefully she can be transitioned to oral diuretics tomorrow. We will follow along with you. Thank you for allowing me to participate in the care of your patient. Please feel free to contact me if you have any questions. Time Spent With Patient Time: Total time managing care of this patient today ____ minutes. Progress Note: Quality Stroke Does the patient have a stroke diagnosis?: No Procedures Date of Service Date of Service: 07/21/24
[2024-07-22] VITALS (8 sets, daily range): BP systolic 118–138; BP diastolic 48–67; PULSE 50–52; RESP 12–20; TEMP 36.1–36.6; O2SAT 91–98
[2024-07-22 07:38] LABS: Anion Gap 13 (12-20); Blood Urea Nitrogen 28 mg/dL (9-16); Calcium 8.7 mg/dL (8.4-10.2); Carbon Dioxide 35 mmol/L (22-29); Chloride 95 mmol/L (96-108); Creatinine Clr Calc Pharmacy 29.9; Estimated Glomerular Filt Rate 39; Glucose Random 80 mg/dL (60-115); Magnesium 1.9 mg/dL (1.6-2.6); Potassium 4.1 mmol/L (3.3-5.1); Sodium 139 mmol/L (135-145)
--- NOTE | 2024-07-22 08:46 | P.PNIM_ITS ---
Subjective Subjective Date of Service: 07/22/24 Interval History: Clinically fluid overloaded blood pressure is better K is better, so far negative > 5000 cc Physical Exam 2 Vital Signs: Vital Signs: Last Vital Signs Temp 97.6 F 07/22/24 07:36 Pulse 52 07/22/24 07:36 Resp 20 07/22/24 07:36 BP 118/56 L 07/22/24 07:36 Pulse Ox 94 07/22/24 07:36 O2 Del Method Nasal Cannula 07/22/24 07:36 O2 Flow Rate 2 07/22/24 07:36 BMI result Body Mass Index 35.7 GENERAL APPEARANCE: in no acute distress. NECK: no carotid bruit, + jugular venous distention to angle of jaw. SKIN: no suspicious lesions, warm and dry. HEART: no murmurs, regular rate and rhythm. LUNGS: Bilateral crackles at bases. ABDOMEN: soft, nontender. EXTREMITIES: 1 +edema. She also has lymphedema. PERIPHERAL PULSES: equal. NEUROLOGIC: No gross deficits, AAO X 3 Objective Data Active Medications Acetaminophen (Acetaminophen 325 Mg Tablet) 650 mg PO Q6H PRN PRN Reason: Pain, Mild 1-3,fever,headache Apixaban (Apixaban 2.5 Mg Tablet) 2.5 mg PO BID [facility] Last Admin: 07/21/24 20:25 Dose: 2.5 mg Documented By: TRINI Atorvastatin Calcium (Atorvastatin Calcium 10 Mg Tablet) 10 mg PO BEDTIME [facility] Last Admin: 07/21/24 20:25 Dose: 10 mg Documented By: TRINI Calcium Carbonate (Calcium Carbonate 750 Mg Tab.Chew) 750 mg PO Q4H PRN PRN Reason: Heartburn Cyanocobalamin (Cyanocobalamin (Vitamin B-12) 1,000 Mcg Tablet) 1,000 mcg PO DAILY [facility] Last Admin: 07/21/24 09:03 Dose: 1,000 mcg Documented By: ARIANNA Doxycycline Monohydrate (Doxycycline Monohydrate 100 Mg Capsule) 100 mg PO BID [facility] Last Admin: 07/21/24 20:25 Dose: 100 mg Documented By: TRINI Furosemide (Furosemide 40 Mg/4 Ml Vial) 40 mg IVPUSH BID@0900,1800 [facility]; Protocol Last Admin: 07/21/24 17:56 Dose: 40 mg Documented By: MICHAEL Gabapentin (Gabapentin 300 Mg Capsule) 300 mg PO BEDTIME [facility] Last Admin: 07/21/24 20:25 Dose: 300 mg Documented By: TRINI Magnesium Hydroxide (Milk Of Magnesia 30 Ml Oral.Susp) 30 ml PO DAILY PRN PRN Reason: Constipation Meclizine HCl (Meclizine Hcl 25 Mg Tablet) 25 mg PO DAILY [facility] Last Admin: 07/21/24 09:03 Dose: 25 mg Documented By: ARIANNA Melatonin (Melatonin 3 Mg Tablet) 6 mg PO BEDTIME PRN PRN Reason: Insomnia Metoprolol Succinate (Metoprolol Succinate Er 25 Mg Tab.Er.24h) 25 mg PO DAILY [facility]; Protocol Last Admin: 07/21/24 12:47 Dose: Not Given Documented By: ARIANNA Non-Admin Reason: Physician Held Med Omeprazole (Omeprazole 20 Mg Capsule.Dr) 20 mg PO DAILY@0630 [facility] Last Admin: 07/22/24 05:31 Dose: Not Given Documented By: TRINI Non-Admin Reason: Pt declined. Ondansetron HCl (Ondansetron Hcl 4 Mg/2 Ml Vial) 4 mg IVPUSH Q4H PRN PRN Reason: Nausea and Vomiting Polyethylene Glycol (Polyethylene Glycol 3350 17 Gm Powd.Pack) 17 gm PO DAILY PRN PRN Reason: Constipation Potassium Chloride (Potassium Chloride Er 20 Meq Tab.Er.Prt) 40 meq PO DAILY [facility] Last Admin: 07/21/24 11:52 Dose: 40 meq Documented By: ARIANNA Sodium Chloride (0.9 % Sodium Chloride Flush 3 Ml Syringe) [facility] Admin: 07/21/24 20:25 Dose: 3 ml Documented By: TRINI Spironolactone (Spironolactone 25 Mg Tablet) 25 mg PO BID [facility]; Protocol Last Admin: 07/21/24 20:25 Dose: 25 mg Documented By: TRINI Vitamin D (Cholecalciferol (Vitamin D3) 25 Mcg Tablet) 25 mcg PO DAILY [facility] Last Admin: 07/21/24 09:03 Dose: 25 mcg Documented By: ARIANNA Labs 07/15/24 12:23 07/22/24 06:45 Labs: Laboratory Results - last 24 hr 07/21/24 07/22/24 06:31 06:45 Hold Purple Top SEE NOTE Anion Gap 13 Estim Creat Clear Calc 29.9 Estimated GFR 39 Random Glucose 80 Calcium 8.7 Magnesium 1.2 L* 1.9 Assessment and Plan (1) Acute exacerbation of CHF (congestive heart failure): Status: Acute Plan 89 year-old woman with HTN, paroxysmal AF and SSS s/p PPM and on apixaban, MARIELA not on CPAP, PVD, breast CA s/p lumpectomy, bladder CA, GERD, HLD, and gout presenting with leg edema and weight gain, found to have pulmonary edema likely due to CHF new-onset acute diastolic CHF, EF 60 to 65 continue IV Lasix 40 bid and monitor I/O, thus far negative > 5000 continue Aldactone 25 mg daily, watch K monitor lytes/BNP + weights, cardiology following she had a normal myocardial perfusion study (MPS) on 03/03/23. Replace mag and K as needed. acute hypoxic respiratory failure supplemental O2, wean as today cellulitis, improved PO doxycycline 07/16-, stop tomorrow CKD3 unclear baseline, monitor SCr with diuresis [stable since admission] paroxysmal AF - continue apixaban, metoprolol succinate (hold with bradycardia) HTN amlodipine stopped d/t low bp, metoprolol succinate as above chronic vertigo - continue meclizine GERD - continue PPI HLD - continue statin VTE prophylaxis - apixaban dispo - eventual home with VNA In my clinical judgment, the patient requires continued inpatient hospitalization for the following reasons: IV diuresis, hypoxia Total time managing care of this patient today: 35 minutes. Quality Stroke Does the patient have a stroke diagnosis?: No VTE Prior VTE?: No VTE Risk Level:: Medical - moderate - high VTE Device Contraindication: N/A - Device Ordered VTE Drug Contraindication: N/A - Med Ordered
[2024-07-22] MEDS: Furosemide 40 MG/4 ML VIAL IVPUSH ×2 (08:49→18:10)
[2024-07-22] MEDS: Apixaban 2.5 MG TABLET PO ×2 (08:50→20:17)
[2024-07-22] MEDS: Cholecalciferol (Vitamin D3) 25 MCG TABLET PO (08:50)
[2024-07-22] MEDS: Potassium Chloride ER 20 MEQ TAB.ER.PRT 40 MEQ PO (08:50)
[2024-07-22] MEDS: Meclizine HCl 25 MG TABLET PO (08:50)
[2024-07-22] MEDS: Doxycycline Monohydrate 100 MG CAPSULE PO ×2 (08:50→20:17)
[2024-07-22] MEDS: Metoprolol Succinate ER 25 MG TAB.ER.24H PO (08:50)
[2024-07-22] MEDS: Cyanocobalamin (Vitamin B-12) 1,000 MCG TABLET 1000 MCG PO (08:50)
[2024-07-22] MEDS: Spironolactone 25 MG TABLET PO ×2 (08:50→20:17)
[2024-07-22] MEDS: 0.9 % Sodium Chloride Flush 3 ML SYRINGE IVFLUSH (08:52)
--- NOTE | 2024-07-22 11:43 | PM.PNCARD ---
Subjective Subjective Date of Service: 07/22/24 Interval history: Patient was seen and examined at bedside. Denying any symptoms currently. Looks quite comfortable. Electrolytes stable on recent blood workup. Physical Exam Vital Signs: Last Vital Signs Temp 97.4 F 07/22/24 11:05 Pulse 52 07/22/24 11:05 Resp 18 07/22/24 11:05 BP 132/59 L 07/22/24 11:05 Pulse Ox 96 07/22/24 11:05 O2 Del Method Room Air 07/22/24 11:05 O2 Flow Rate 2 07/22/24 07:36 BMI result Body Mass Index 35.7 GENERAL APPEARANCE: in no acute distress. NECK: no carotid bruit, mild jugular venous distention. SKIN: no suspicious lesions, warm and dry. HEART: no murmurs, regular rate and rhythm. LUNGS: Lungs clear to auscultation. ABDOMEN: soft, nontender. EXTREMITIES: No edema. She also has lymphedema. PERIPHERAL PULSES: equal. NEUROLOGIC: No gross deficits, AAO X 3 Objective Labs and Meds 07/15/24 12:23 07/22/24 06:45 Lab results: Laboratory Results - last 24 hr 07/21/24 07/22/24 06:31 06:45 Hold Purple Top SEE NOTE Sodium 139 Potassium 4.1 Chloride 95 L Carbon Dioxide 35 H Anion Gap 13 BUN 28 H Creatinine 1.29 Estim Creat Clear Calc 29.9 Estimated GFR 39 Random Glucose 80 Calcium 8.7 Magnesium 1.2 L* 1.9 Progress Note: A&P Assessment and plan (1) Acute diastolic (congestive) heart failure: Status: Acute (2) Persistent atrial fibrillation: Status: Acute Plan Pleasant 89 year female with acute diastolic heart failure. Clinically stable. Change to PO Lasix 40 mg BID. Spironlactone 25 mg BID. Stop potassium supplements. Toprol XL 25 mg daily. Thank you for allowing me to participate in the care of your patient. Please feel free to contact me if you have any questions. Time Spent With Patient Time: Total time managing care of this patient today ____ minutes. Progress Note: Quality Stroke Does the patient have a stroke diagnosis?: No Procedures Date of Service Date of Service: 07/22/24
[2024-07-22] MEDS: Atorvastatin Calcium 10 MG TABLET PO (20:17)
[2024-07-22] MEDS: Gabapentin 300 MG CAPSULE PO (20:17)
[2024-07-23 03:07] VITALS: BP 103/55; PULSE 50; RESP 18; TEMP 36.4; O2SAT 93
[2024-07-23 06:00] VITALS: BMI 33.7
[2024-07-23] MEDS: Omeprazole 20 MG CAPSULE.DR PO (06:07)
[2024-07-23 07:39] VITALS: BP 102/53; PULSE 52; RESP 18; TEMP 36.6; O2SAT 94
[2024-07-23 07:53] VITALS: BP 102/53; PULSE 52
[2024-07-23] MEDS: Cholecalciferol (Vitamin D3) 25 MCG TABLET PO (07:53)
[2024-07-23] MEDS: Metoprolol Succinate ER 25 MG TAB.ER.24H PO (07:53)
[2024-07-23 07:54] VITALS: BP 102/53
[2024-07-23] MEDS: Spironolactone 25 MG TABLET PO (07:54)
[2024-07-23] MEDS: Apixaban 2.5 MG TABLET PO (07:54)
[2024-07-23] MEDS: Cyanocobalamin (Vitamin B-12) 1,000 MCG TABLET 1000 MCG PO (07:54)
[2024-07-23] MEDS: Doxycycline Monohydrate 100 MG CAPSULE PO (07:54)
[2024-07-23] MEDS: Furosemide 40 MG TABLET PO (07:54)
[2024-07-23] MEDS: 0.9 % Sodium Chloride Flush 3 ML SYRINGE IVFLUSH (07:54)
[2024-07-23] MEDS: Meclizine HCl 25 MG TABLET PO (07:54)
[2024-07-23 08:01] LABS: Anion Gap 13 (12-20); Blood Urea Nitrogen 26 mg/dL (9-16); Calcium 8.7 mg/dL (8.4-10.2); Carbon Dioxide 36 mmol/L (22-29); Chloride 95 mmol/L (96-108); Creatinine Clr Calc Pharmacy 30.4; Estimated Glomerular Filt Rate 41; Glucose Random 75 mg/dL (60-115); Potassium 3.7 mmol/L (3.3-5.1); Sodium 140 mmol/L (135-145)
--- NOTE | 2024-07-23 09:10 | MHC.CM.PN ---
Second IMM 07/23/24, Pt. has been medically cleared for DC, she will go home via private transport and have home care services from [facility], and task submitted to [facility], pt. agreeable to an eval from them for their services.
--- NOTE | 2024-07-23 09:53 | P.DS_ITS ---
DS: Providers Provider Date of Service: 07/23/24 Date of admission: 07/15/24 15:53 Date of discharge: 07/23/24 Primary care physician: Román Naik MD Consults: 07/15/24 15:34 Consult to Cardiology Routine Consulting Provider: [facility] Reason for consultation: chf, new 07/17/24 18:39 Consult to Wound Care Routine Reason for consultation: ?MASD DS: Diagnosis Discharge Diagnosis (1) Acute diastolic (congestive) heart failure: Status: Acute (2) Persistent atrial fibrillation: Status: Acute DS: Summary Hospital Course Hospital Course: History of Present Illness: An 89-year-old female with a complex medical history including HTN, paroxysmal AF with SSS status post permanent pacemaker, MARIELA, PVD, and malignancy history, presented with 3?4 days of worsening bilateral leg swelling, more prominent on the right side with some associated redness, and reported a 12-lb weight gain. She denied dyspnea, orthopnea, chest pain, or systemic symptoms. Workup in the ED showed signs of pulmonary congestion on CXR, elevated BNP of 2304, Cr 1.66, Mg 1.4, and negative venous duplex. She was given IV magnesium sulfate and IV furosemide, with a good diuretic response (>5 L net negative). Echocardiogram confirmed preserved EF (60?65%), consistent with acute decompensated diastolic heart failure (HFpEF). Hospital Course: Acute Diastolic CHF (HFpEF): Initiated on IV Lasix 40 mg BID, continued through discharge. Aldactone 25 mg daily continued. Strict monitoring of I/Os, she has diuressed over 6 liters, daily weights were followed she is down to 81 kilo from 84, , electrolytes including potassium within ormal limit. Cardiology followed during admission and recommends transitioning to oral Lasix 40 mg twice daily and aldactone 25 mg daily. HCTZ has been discontinued. Norvasc stopped due low blood pressure, and Toprolol Xla reduced from 50 mg daily to 25 mg daily. Notably, she had a normal MPS on 03/03/2023. Echocardiogram showed an EF of 60 to 65 %. Will follow up with cardiology on outpatient basis Acute Hypoxic Respiratory Failure--Likely secondary to fluid overload; improved with diuresis. Oxygen was weaned off successfully by discharge. Cellulitis: Treated empirically with PO doxycycline (started 07/16) for right leg redness; has clinically improved. Last dose given 07/22. CKD Stage 3: Baseline renal function unclear; creatinine has remained stable during aggressive diuresis. Electrolytes replaced as needed, Creat presently 1.23 Paroxysmal Atrial Fibrillation with PPM: Continued on apixaban and metoprolol succinate 25 mg daily, with caution due to occasional bradycardia. Hypertension: Amlodipine discontinued due to low blood pressures; metoprolol adjusted as above MARIELA: History of MARIELA, not on CPAP. Re-discussed potential benefit of compliance. Chronic vertigo: Stable on meclizine. GERD, HLD, Gout: Continued home PPI, statin, and gout medications without issue. Electrolytes and renal function to be monitored by PCP, Hypokalemia while on IV lasix correct Discharge Condition: Improved. Ambulating with assistance. At mental baseline. Oxygenating well on room air. Leg swelling significantly reduced. Follow-Up Plans: * Primary care provider (PCP) within 3?5 days * Cardiology follow-up as outpatient * [facility] for weight checks, medication adherence, and lab draws as needed * Monitor renal function, potassium, magnesium, and BNP * Re-discuss CPAP compliance on outpatient bassis Discharge Disposition: Home [facility] Discharge Diagnosis: * New-onset acute diastolic congestive heart failure (HFpEF, EF 60?65%) * Acute hypoxic respiratory failure * Bilateral lower extremity edema with cellulitis, improved * Chronic kidney disease (CKD) stage 3 * Paroxysmal atrial fibrillation with sick sinus syndrome, s/p pacemaker * Hypertension * Obstructive sleep apnea (MARIELA), not on CPAP * History of breast cancer s/p lumpectomy * History of bladder cancer * GERD * Hyperlipidemia * Gout * Chronic vertigo Time Attestation Discharge Coordination Time (in mins): 45 Quality: Safe Use of Opioids Does Pt have an Active Cancer Diagnosis on the Problem List?: No Quality: Stroke Does the patient have a stroke diagnosis?: No Physical Exam Vital Signs: Vital Signs: Last Vital Signs Temp 97.8 F 07/23/24 07:39 Pulse 52 07/23/24 07:53 Resp 18 07/23/24 07:39 BP 102/53 L 07/23/24 07:54 Pulse Ox 94 07/23/24 07:39 O2 Del Method Room Air 07/23/24 07:39 O2 Flow Rate 2 07/22/24 07:36 BMI result Body Mass Index 33.7 Const: Other: General: AO X 3, no acute distress Resp: CTA bilateral CVS: S1,S2,RRR, -- jvd, 1 to 2 leg edema GI: +BS, NT, no distention Skin: No rash Neuro: motor grossly intact Psych: appropriate affect DS: Data Data Completed and Pending Labs on day of discharge: Laboratory Results - last 24 hr 07/23/24 07/23/24 06:49 07:05 Hold Purple Top SEE NOTE Sodium 140 Potassium 3.7 Chloride 95 L Carbon Dioxide 36 H Anion Gap 13 BUN 26 H Creatinine 1.23 Estim Creat Clear Calc 30.4 Estimated GFR 41 Random Glucose 75 Calcium 8.7 Discharge Plan Discharge Anticipated Discharge Date/Time: 07/23/24 09:42 Patient Disposition: Home Health Service Discharge Diagnosis: Acute diastolic CHF, Hypokalemia Referrals: Jamil Youssef MD [Physician] - 2 Weeks Po,Román Leslie MD [Primary Care Provider] - 1 Week Discharge Medications: New furosemide 40 mg Tablet 40 mg PO BID Qty: 180 0RF Protocol: Hold for SBP< HOLD for SBP < : 90 spironolactone 25 mg Tablet 25 mg PO BID Qty: 90 0RF Protocol: Hold for SBP< HOLD for SBP < : 90 metoprolol succinate 25 mg Tablet Extended Release 24 Hr 25 mg PO DAILY Qty: 90 0RF Protocol: Hold for SBP/HR < HOLD for SBP < : 90 HOLD for HR < : 60 Continued meclizine 25 mg tablet 25 mg PO DAILY Qty: 30 0RF simvastatin 20 mg tablet 20 mg PO BEDTIME Qty: 90 3RF cyanocobalamin (vitamin B-12) 1,000 mcg capsule 1,000 mcg PO DAILY Qty: 90 3RF Eliquis 5 mg tablet 5 mg PO BID Qty: 60 5RF cyclosporine [Restasis] 0.05 % dropperette 1 drp ophthalmic (eye) BID omeprazole 20 mg capsule,delayed release(DR/EC) 20 mg PO DAILY@0630 nystatin 100,000 unit/gram powder 1 appl topical DAILY Rx Instructions: Apply 2 times per day thin coat of topical powder to affected area cholecalciferol (vitamin D3) 25 mcg (1,000 unit) capsule 25 mcg PO DAILY coenzyme Q10 [Co Q-10] 100 mg capsule 100 mg PO DAILY gabapentin 300 mg capsule 300 mg PO BEDTIME Qty: 90 3RF polyethylene glycol 3350 [Miralax] 17 gram powder in packet 17 g PO DAILY PRN (Reason: Constipation) Discontinued hydrochlorothiazide 12.5 mg tablet 12.5 mg PO DAILY amlodipine 5 mg tablet 5 mg PO DAILY Qty: 90 3RF metoprolol succinate 50 mg tablet extended release 24 hr 50 mg PO DAILY 90 Days Qty: 90 2RF Discharge Orders: Discharge Order (Routine); Ordered 07/23/24 Ordered By: Abelino Garza Diet: Low salt diet Activity on Discharge: As tolerated Stand Alone Forms: Patient Portal Discharge page Print Language: Ukrainian Care Plan Goals: recovery from heart failure, and prevent of hospitalization from heart failure Health Concerns: Acute heart failure Plan of Treatment: stop taking amlodipine Toprol xl (metoprolol) dose has been reduced from 50 mg to 25 mgs stop taking Hydrochlorothiazide take Lasix 40 mg twice daily morning and evening follow up with your doctor in a week The heart doctor will arrage for follow up visit * Weigh yourself every morning after using the bathroom and before eating * Keep a log of your weight * Call your doctor if you gain more than 2?3 pounds in one day or 5 pounds in one week Diet: * Limit salt (sodium) to less than 2,000 mg per day * Avoid processed foods, canned soups, salty snacks, and fast food * Follow a fluid restriction if recommended (usually around 1.5?2 liters per day) * Visiting nurses will come see you at home Assessment: see above
--- NOTE | 2024-07-23 10:09 | P.F2F_ITS ---
Service Date Service Date: 07/23/24 Encounter Date of encounter: 07/23/24 Reasons for Services Signs and symptoms assessed: heart failure with sob, hypoxia Reason for custodial: medication management, medication treatment and teach disease management Homebound: Leaving the home is medically contraindicated at this time without the asist of a device and/or another person due th the listed conditions above and below. Reason homebound: fall risk related to blood pressure changes and weakness rela [place] to hospital stay Homebound supporting statement: homebound due to weakness and deconditioning from hospitalization from heart failure, sob with minimal effort, does not drive and therefore needs the assitance of another person Certification: Based on the above findings, I certify that this patient is confined to the home and needs intermittent custodial care, physical therapy and/or speech therapy, or continues to need occupational therapy. The patient is under my care, and I have initiated the establishment of the plan of care. The patient will be followed by a physician who will periodically review the plan of care. Time Spent With Patient Time: Total time managing care of this patient today ____ minutes.
== END 2024-07-23 11:07 | disposition home health service (06) | DRG 291 ==
LOC: HO.ED 12:11 → HO.EDOVER 16:00 → HO.IMC 07-16 17:09
PROVIDERS: Physician Assistant Medical; Admitting Provider Family Medicine; Emergency Provider Emergency Medicine Emergency Medical Services; PCP Internal Medicine; Visit Provider Internal Medicine
DX: I13.0 Hypertensive heart and chronic kidney disease with heart failure and stage 1 through stage 4 chronic kidney disease, or unspecified chronic kidney disease (principal); I50.31 Acute diastolic (congestive) heart failure; L03.115 Cellulitis of right lower limb; L03.116 Cellulitis of left lower limb; E78.5 Hyperlipidemia, unspecified; E87.6 Hypokalemia; E83.42 Hypomagnesemia; G47.33 Obstructive sleep apnea (adult) (pediatric); I48.0 Paroxysmal atrial fibrillation; M10.9 Gout, unspecified; R42 Dizziness and giddiness; I49.5 Sick sinus syndrome; K21.9 Gastro-esophageal reflux disease without esophagitis; Z95.0 Presence of cardiac pacemaker; Z79.01 Long term (current) use of anticoagulants; Z79.899 Other long term (current) drug therapy
CPT/HCPCS: 36415; 71046; 73590; 80048; 80051; 80053; 81001; 83735; 83880; 85025; 86140; 87086; 87088; 87186; 93005; 93306; 93971; 97110; 97116; 97162; 99285; J1940; J3475; J3480; Q9957

== ENCOUNTER → 2024-07-15 12:33 | Outpatient (BNV) | payer MEDICARE, SELFPAY | PROVIDERS: Emergency Provider Emergency Medicine Emergency Medical Services; PCP Internal Medicine; Visit Provider Radiology Diagnostic Radiology | DX: R22.41 Localized swelling, mass and lump, right lower limb (principal); R79.89 Other specified abnormal findings of blood chemistry | CPT/HCPCS: 71046; 73590; 93971 ==

== ENCOUNTER 2024-07-15 15:53 | Outpatient (BNV) | payer MEDICARE, SELFPAY | END 2024-07-17 07:00 | PROVIDERS: Admitting Provider Family Medicine; Emergency Provider Emergency Medicine Emergency Medical Services; PCP Internal Medicine; Visit Provider Internal Medicine Cardiovascular Disease | DX: I42.8 Other cardiomyopathies (principal); Z95.0 Presence of cardiac pacemaker; I34.1 Nonrheumatic mitral (valve) prolapse; I27.20 Pulmonary hypertension, unspecified | CPT/HCPCS: 93306 ==

== ENCOUNTER → 2024-07-15 15:53 | Outpatient (BNV) | payer MEDICARE, SELFPAY | PROVIDERS: Admitting Provider Family Medicine; Emergency Provider Emergency Medicine Emergency Medical Services; PCP Internal Medicine; Visit Provider Internal Medicine | DX: I50.31 Acute diastolic (congestive) heart failure (principal); I48.19 Other persistent atrial fibrillation | CPT/HCPCS: 93010; 99223 ==

== ENCOUNTER → 2024-07-15 15:53 | Outpatient (BNV) | payer MEDICARE, SELFPAY | PROVIDERS: Admitting Provider Family Medicine; Emergency Provider Emergency Medicine Emergency Medical Services; PCP Internal Medicine; Visit Provider Family Medicine | DX: I50.9 Heart failure, unspecified (principal) | CPT/HCPCS: 99223; 99232 ==

== ENCOUNTER 2024-08-02 08:39 | Outpatient (REF) | payer MEDICARE, SELFPAY ==
[2024-08-02 10:39] LABS: MANUAL DIFF FLAG NO
[2024-08-02 11:14] LABS: Basophils Absolute Auto 0.1 X10*3/uL (0.0-0.2); Eosinophils Absolute Auto 0.2 X10*3/uL (0.0-0.4); Eosinophils Percent Auto 2.6 % (0-4); Hematocrit 41.3 % (37.0-47.0); Hemoglobin 13.2 g/dl (12.0-16.0); Imm Gran Abs Auto 0.04 X10*3/uL (0.00-0.03); Imm Gran Pct Auto 0.6 % (0.0-0.4); Lymphocytes Absolute Auto 1.2 X10*3/uL (1.2-4.9); Lymphocytes Percent Auto 19.8 % (20-40); Mean Corpuscular Hemoglobin 27.5 pg (27.0-33.0); Mean Platelet Volume 9.9 fL (9.4-12.3); Monocytes Absolute Auto 0.6 X10*3/uL (0.1-1.2); Monocytes Percent Auto 9.7 % (2-11); NRBC Pct Auto 0.3 /100WBC (0.0-0.2); Neutrophils Absolute Auto 4.2 x10*3/uL (2.0-8.3); Neutrophils Percent Auto 66.3 % (45-73); Platelet Count 468 X10*3/uL (160-400); Red Cell Distribution Width 15.2 % (11.0-16.0); White Blood Count 6.3 X10*3/uL (4.8-10.8)
[2024-08-02 11:24] LABS: Appearance Urine Clear; Color Urine Yellow; Glucose Urine UA Negative (Negative); Leukocyte Esterase Urine Large (3+) (Negative); Nitrite Urine Negative (Negative); UMIC TRIGGER UACC YES; Urine Blood Negative (Negative); Urine Ketones Negative (Negative); Urine Protein Negative (Neg-Trace)
[2024-08-02 11:37] LABS: B Type Natriuretic Peptide 844 pg/mL (<100)
[2024-08-02 11:52] LABS: Alanine Aminotransferase 8 U/L (0-31); Albumin Level 3.6 g/dL (3.5-5.0); Alkaline Phosphatase 87 U/L (39-117); Anion Gap 14 (12-20); Aspartate Amino Transferase 33 U/L (5-31); Bilirubin Total 0.7 mg/dL (0.0-1.0); Blood Urea Nitrogen 28 mg/dL (9-16); Calcium 9.8 mg/dL (8.4-10.2); Carbon Dioxide 32 mmol/L (22-29); Chloride 97 mmol/L (96-108); Estimated Glomerular Filt Rate 32; Glucose Random 96 mg/dL (60-115); Magnesium 1.4 mg/dL (1.6-2.6); Potassium 3.9 mmol/L (3.3-5.1); Sodium 139 mmol/L (135-145); Total Protein 7.5 g/dL (6.5-8.0)
[2024-08-02 11:57] LABS: Bacteria Urine Trace (None Seen); Hyaline Casts Urine 0-2 /LPF (0-2); RBC Urine 0-2 /HPF (0-2); UACC Culture Trigger YES
== END 2024-08-02 08:40 | disposition home or self-care (01) ==
LOC: HO.LAB 08:39
PROVIDERS: PCP Internal Medicine; Visit Provider Internal Medicine
DX: I48.19 Other persistent atrial fibrillation (principal); I11.0 Hypertensive heart disease with heart failure; I50.31 Acute diastolic (congestive) heart failure; C67.9 Malignant neoplasm of bladder, unspecified; R73.01 Impaired fasting glucose; K21.9 Gastro-esophageal reflux disease without esophagitis; E78.00 Pure hypercholesterolemia, unspecified; E04.1 Nontoxic single thyroid nodule; G47.33 Obstructive sleep apnea (adult) (pediatric)
CPT/HCPCS: 36415; 80053; 81001; 83735; 83880; 85025; 87086; 99212

== ENCOUNTER 2024-08-02 08:39 | Outpatient (AMB) | payer MEDICARE, SELFPAY ==
--- NOTE | 2024-08-02 08:45 | MHC.PC.OV ---
Vital Signs 08/02/24 08:46 Height 5 ft 1 in Weight 152 lb BMI 28.7 BP 112/62 Blood Pressure Location Lt brachial Position Sitting Pulse 73 Pulse Source Pulse Oximeter Pulse Oximetry (%) 97 Oxygen Delivery Method Room Air Intake Visit Reasons: [facility] CHF 07/23 Allergies No Known Allergies [No Known Allergies*] Allergy (Verified 08/02/24 08:46) Tobacco use date assessed: 05/04/24 Fall risk assessment: No Falls in past year Last assessed Fall Risk: 08/02/24 Dental Screening Dental Screen Date: 05/04/24 [facility] Medical History (Updated 08/02/24 @ 09:25 by Román Naik MD) Persistent atrial fibrillation Multinodular goiter (nontoxic) Paroxysmal atrial fibrillation Pedal edema Removal of staple Visit for suture removal Complicated urinary tract infection Dysphagia Screening for breast cancer Abnormal ultrasound of breast Abnormal mammogram of left breast Multiple falls Physical deconditioning Breast cancer, left Breast cancer Chronic renal insufficiency HTN (hypertension) Cardiac pacemaker in situ AV block Leg edema Screening for diabetes mellitus On beta jake at home Arthritis Vertigo MARIELA (obstructive sleep apnea) Sick sinus syndrome Peripheral vascular disease Menieres disease Urinary bladder cancer Obesity Gout GERD (gastroesophageal reflux disease) Hypercholesterolemia Surgical History History of lumpectomy of left breast (03/10/23) History of esophagogastroduodenoscopy (EGD) S/P cardiac pacemaker procedure Hx of colonoscopy History of cystoscopy S/P MARION-BSO (total abdominal hysterectomy and bilateral salpingo-oophorectomy) History of cataract surgery History of knee replacement History of tonsillectomy History of appendectomy History of cholecystectomy Family History Father Stroke Mother Heart disease Social History Household Members: None Housing: Apartment Are you a primary caretaker resort to a significant other at home: No Do you presently have visiting nurse or other home services: No Alcohol intake: never Comment: patient refusing alarms Patient Tobacco Use Status: Former Tobacco user Tobacco use type: Cigarette e-Cigarette/Vaping Use: Never Used Second Hand Smoke Exposure: No Advance Directives Date on File: 09/15/21 service: No Current occupational status: retired Cognitive needs: No Hearing needs: Yes Vision needs: Yes Questionnaire Thrive Questionnaire Date Thrive assessed: 07/16/24 DESI-7 AMB Questionnaire DESI-7 Date DESI - 7 assessed: 05/04/24 Source: Developed by Drs. Wilver Hightower, Tanya Bardales, Thomas Perry and colleagues, with an educational mike from [employer]. Physical exam (Primary Care) Vital Signs: Last Vital Signs Pulse 73 08/02/24 08:46 BP 112/62 08/02/24 08:46 Pulse Ox 97 08/02/24 08:46 Oxygen Delivery Method Room Air 08/02/24 08:46 BMI result Body Mass Index 28.7 Tobacco/Smoking Status: Tobacco use Status Tobacco use date assessed 05/04/24 08/02/24 08:52 Patient Tobacco Use Status Former Tobacco user 08/02/24 08:52 Tobacco use type Cigarette 08/02/24 08:52 e-Cigarette/Vaping Use Never Used 08/02/24 08:52 Thrive Assessment: Date of Thrive Assessment Date Thrive assessed 07/16/24 08/02/24 08:52 Const General: alert; No acute distress Eyes Conjunctivae: conjunctivae normal Resp Auscultation: clear to auscultation bilaterally GI Inspection: Yes normal to inspection Extrem General: Yes normal to inspection and No edema Coding Level of Care Code Est Pt Level 4 (21134) Complex EM visit Add On G2211 Diagnoses Acute diastolic (congestive) heart failure I50.31 Malignant neoplasm of urinary bladder, unspecified site C67.9 Bladder location: unspecified site Impaired fasting blood sugar R73.01 Gastroesophageal reflux disease without esophagitis K21.9 Esophagitis presence: without esophagitis Hypercholesterolemia E78.00 HTN (hypertension) I10 Thyroid nodule E04.1 Persistent atrial fibrillation I48.19 MARIELA (obstructive sleep apnea) G47.33 Assessment & Plan Assessment & Plan (1) Acute diastolic (congestive) heart failure: Code(s): I50.31 - Acute diastolic (congestive) heart failure Category: Medical Plan: Patient has been diuresed and maintained on spironolactone and furosemide (2) Urinary bladder cancer: Comment: TURBT superficial high-grade Dr. Meza TURBT Dr. 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 (4) GERD (gastroesophageal reflux disease): Code(s): K21.9 - Gastro-esophageal reflux disease without esophagitis Category: Medical Qualifiers: Esophagitis presence: without esophagitis Qualified Code(s): K21.9 - Gastro-esophageal reflux disease without esophagitis Plan: Avoid the foods that causes that usually spicy foods, tomato products, juices, coffee, soda and foods that your sensitive to. After eating do not lie down, allow 3-4 hours before in lie down. And keep the head of bed above 30 degrees to avoid the acid from going up. (5) Hypercholesterolemia: Code(s): E78.00 - Pure hypercholesterolemia, unspecified Category: Medical Plan: Avoid fried foods, chicken skin, eggs, butter margarine, pastries and meat. Be it pork or beef they have a lot of cholesterol LDL goal of less than 100 and triglyceride of less than 150 on simvastatin 20 mg once a day (6) HTN (hypertension): Code(s): I10 - Essential (primary) hypertension Category: Medical Plan: Continue with blood pressure medication. Decrease salt intake and exercise patient on metoprolol 25 mg once a day (7) Thyroid nodule: Comment: May 2024 There is a right lower pole 2.7 cm TR category 3 nodule. FNA advised. 2. There is a right upper pole 1.0 cm TR category 4 nodule. Recommend follow-up as per below. 3. There is a 0.8 cm right mid pole TR category 3 nodule. No follow-up recommended. 4. The surrounding thyroid parenchyma is normal. Code(s): E04.1 - Nontoxic single thyroid nodule Category: Medical Plan: Patient has seen endocrinology and planned biopsy (8) Persistent atrial fibrillation: Code(s): I48.19 - Other persistent atrial fibrillation Category: Medical Plan: Continue with anticoagulation and beta jake right now (9) MARIELA (obstructive sleep apnea): Comment: 2015 o CPAP - claustrophobia-states no sleep apnea anymore Code(s): G47.33 - Obstructive sleep apnea (adult) (pediatric) Category: Medical Plan History of Present Illness The patient is an 89-year-old female presenting with congestive heart failure management and evaluation. She was last seen for congestive heart failure in April 2024 and was admitted on July 23 for exacerbation due to fluid overload. Hospitalization was marked by symptoms of leg swelling and pulmonary congestion, with elevated BNP and low magnesium levels. The patient experienced improvement with diuretic management, and alterations were made to her antihypertensive regimen to optimize control. The patient's medical history is significant for obstructive sleep apnea, previously diagnosed in 2016 as moderately severe, without CPAP therapy. There is also a history of bladder cancer, GERD, and hypercholesterolemia, which is currently being managed with simvastatin. She had a lumpectomy for left breast cancer in 2022. Notably, she suffered a fall on June 26, diagnosed as a non-traumatic closed head injury. Health Maintenance - Hypercholesterolemia monitored with simvastatin 20 mg daily, with last LDL goal set below 100 mg/dL and triglycerides below 150 mg/dL. - Ongoing management of hypertension with adjusted doses of metoprolol. - Arrangements made for fine needle aspiration biopsy for thyroid nodule detection. - Sleep apnea assessment notes and weight management strategies discussed. - Regular monitoring of kidney function due to diuretic therapy. - Monitoring of urinary tract infections encouraged, given recent urine analysis findings. Social History - Weight history: Recent loss of approximately 30 pounds. - CPAP therapy not initiated despite obstructive sleep apnea diagnosis; sleep quality improved with weight loss. - Declines having significant issues with falls; reports functional independence aside from recent episode in June. - Lifestyle: Likely independent, no indications of assistance requirements in detailed history. Review of Systems - Cardiovascular: Reports leg swelling, denies chest pain. - Respiratory: Reports shortness of breath with fluid overload episodes. - Gastrointestinal: Denies issues; GERD noted as historical. - Genitourinary: Denies dysuria; recent urinary white blood cells found. - Neurological: Denies dizziness post-fall. - General: Reports significant weight loss. Physical Exam - Cardiovascular- Noted presence of leg swelling; lung auscultation revealed clear sound. - Vital Signs- Stable follow-up vitals not stated but implied during examination (specific readings not noted). Results - Labs: Elevated BNP during hospitalization; magnesium 1.4; creatinine 1.66 on recent exam. - Urine Analysis: Presence of white blood cells reported on July 15. - Imaging: Pulmonary congestion observed on chest x-ray. Plan The congestive heart failure management involves continuing spironolactone and modifying diuretics according to symptomatology and laboratory findings. Anticoagulation for atrial fibrillation will be maintained to continue stroke prevention. Metoprolol has been adjusted for hypertension control, aiding uncomplicated rhythms. The patient's recent weight loss necessitates the diuretics to be used cautiously, adjusting doses based on daily weights. Future discussion including thyroid biopsy requires optimized heart rates and breathing patterns, with follow-up arranged as needed. Patient was informed and verbally consented to the use of an ambient scribe for clinic note documentation during this visit. Discussion Notes The patient and I discussed the ongoing management of congestive heart failure, emphasizing the importance of maintaining the current weight through vigilant monitoring and adjusting diuretics accordingly. The rationale behind anticoagulation in atrial fibrillation was reviewed, highlighting its preventative purpose against stroke. We reviewed the benefits of sleep apnea management via weight reduction, recognizing its positive implications on cardiac rhythm. I addressed the necessity of careful diuretic balance and kidney function surveillance, clarifying medication changes and plans. Considering the thyroid nodule, I advised that stabilization of heart condition is prerequisite to a biopsy. Patient Instructions - Monitor your weight daily; report if you gain more than 3 pounds or lose more than 2 pounds in a day. - Take prescribed medications as directed. Especially note Lasix adjustments. - Keep track of any symptoms such as dizziness or difficulty breathing and contact us if they worsen. - Schedule and attend the laboratory tests as recommended, particularly kidney and magnesium check-ups. - Follow a heart-healthy diet to support weight maintenance. - Plan to visit for follow-up on the to review progress and make adjustments if necessary. Orders: Orders B Type Natriuretic Peptide Today I48.19 - Other persistent atrial fibrillation Magnesium Today I48.19 - Other persistent atrial fibrillation Complete Blood Count Auto Diff Today I48.19 - Other persistent atrial fibrillation Comprehensive Met. Panel Today I48.19 - Other persistent atrial fibrillation UA CC w/rflx Micro + Cult Today I48.19 - Other persistent atrial fibrillation, R30.0 - Dysuria Medications: Changed From furosemide 40 mg See Protocol PO BID 180 tabs 0RF To furosemide (advised to take 40 mg in am and 20 mg in pm) 40 mg See Protocol PO BID 180 tabs 0RF
[2024-08-02 08:46] VITALS: BP 112/62; PULSE 73; O2SAT 97; BMI 28.7
== END 2024-08-02 09:48 | disposition home or self-care (01) ==
LOC: HO.HMCH 08:39
PROVIDERS: PCP Internal Medicine; Visit Provider Internal Medicine
DX: I11.0 Hypertensive heart disease with heart failure (principal); I50.31 Acute diastolic (congestive) heart failure; C67.9 Malignant neoplasm of bladder, unspecified; I48.19 Other persistent atrial fibrillation; R73.01 Impaired fasting glucose; K21.9 Gastro-esophageal reflux disease without esophagitis; E78.00 Pure hypercholesterolemia, unspecified; E04.1 Nontoxic single thyroid nodule; G47.33 Obstructive sleep apnea (adult) (pediatric)

== ENCOUNTER 2024-08-25 09:53 | Outpatient (AMB) | payer MEDICARE, SELFPAY ==
--- NOTE | 2024-08-25 09:56 | MHC.OFFVIS ---
Vital Signs 08/25/24 10:05 Height 5 ft 1 in Weight 149 lb BMI 28.2 BP 129/72 Blood Pressure Location Lt brachial Position Sitting Pulse 84 Intake Visit Reasons: 6 month follow up breast exam Intake Note: Patient is seen in office for breast exam. Pt c/o: denies any concerns us/mm:03/06/24 Skate Boarder Required: No Applications Support Analyst: Applications Support Analyst Present Accompanied by: Sister Allergies No Known Allergies [No Known Allergies*] Allergy (Verified 08/25/24 10:02) HPI Comments Details: 89-year-old female patient returning for follow-up breast examination. She was found to have a suspicious density in the left breast at the upper outer quadrant subsequently underwent ultrasound-guided biopsy at the [facility] on 10/12/2022. 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 She underwent a left breast lumpectomy with localizer, sentinel node biopsy using Mag trace on 03/10/2023. Pathology revealed: Invasive ductal carcinoma, MSBR grade 3, 2.5 cm in size; negative margins (1.5 mm to anterior). - Biopsy site changes. - pT2 N0(sn)(i-) AJCC Stage 8th ed. B. Soft tissue, axillary contents: Fibrovascular and adipose tissue within normal limits; no lymph nodes identified. C. Lymph node, sentinel #1, excision: One lymph node negative for metastatic carcinoma. D. Lymph node, sentinel #2, excision: Fibrovascular and adipose tissue within normal limits; no lymph nodes identified. Ancillary studies: ER positive, AZ positive, HER2 negative, high proliferation Oncotype DX recurrence score is 14 with a 4% 9 year distant recurrence risk and absolute benefit of chemotherapy at less than 1%. Her family history is positive for a sister having breast cancer. She is G0. Her most recent mammogram performed on 03/06/2024 revealed She was evaluated by Medical Oncology (Dr. Smith) and letrozole was offered but declined by the patient. In addition radiation therapy was declined. She continues to be followed by Dr. Smith. Her most recent mammogram and ultrasound performed on 03/06/2024 revealed left axillary seroma with postoperative changes but no mammographic evidence of malignancy (BI-RADS 2). She was recently admitted to the hospital for congestive heart failure. [facility] Medical History Persistent atrial fibrillation Multinodular goiter (nontoxic) Paroxysmal atrial fibrillation Pedal edema Removal of staple Visit for suture removal Complicated urinary tract infection Dysphagia Screening for breast cancer Abnormal ultrasound of breast Abnormal mammogram of left breast Multiple falls Physical deconditioning Breast cancer, left Breast cancer Chronic renal insufficiency HTN (hypertension) Cardiac pacemaker in situ AV block Leg edema Screening for diabetes mellitus On beta jake at home Arthritis Vertigo MARIELA (obstructive sleep apnea) Sick sinus syndrome Peripheral vascular disease Menieres disease Urinary bladder cancer Obesity Gout GERD (gastroesophageal reflux disease) Hypercholesterolemia Surgical History History of lumpectomy of left breast (03/10/23) History of esophagogastroduodenoscopy (EGD) S/P cardiac pacemaker procedure Hx of colonoscopy History of cystoscopy S/P MARION-BSO (total abdominal hysterectomy and bilateral salpingo-oophorectomy) History of cataract surgery History of knee replacement History of tonsillectomy History of appendectomy History of cholecystectomy Family History Father Stroke Mother Heart disease Social History Household Members: None Housing: Apartment Are you a primary primary care physician to a significant other at home: No Do you presently have visiting nurse or other home services: No Alcohol intake: never Comment: patient refusing alarms Patient Tobacco Use Status: Former Tobacco user Tobacco use type: Cigarette e-Cigarette/Vaping Use: Never Used Second Hand Smoke Exposure: No Advance Directives Date on File: 09/15/21 service: No Current occupational status: retired Cognitive needs: No Hearing needs: Yes Vision needs: Yes Review of Systems Const All systems reviewed & are unremarkable except as noted in HPI and below Denies chills, Denies fever(s), Denies poor appetite and Denies weakness Resp Denies cough and Denies excessive phlegm production Skin/Breast Denies breast swelling, Denies breast skin changes, Denies breast pain, Denies breast mass, Denies changing lesions and Denies unusual bruising Neuro Denies paresthesias and Denies weakness Psych Denies anxiety and Denies depression Arsenio/Lymph Denies lymphadenopathy Physical Exam Const General: comfortable Nutritional Appearance: well nourished Orientation/consciousness: patient oriented x3 Chest Other: Well-healed incision in the left axilla and left breast. There is residual seroma in the left axilla which has not changed significantly since last examination and in fact may be slightly smaller. No other new palpable masses appreciated in the left breast. Right breast reveals no new skin change, nipple discharge, palpable mass or enlarged lymph nodes. Resp Effort & Inspection: normal respiratory effort Skin General skin exam: no rashes or lesions noted Neuro Other: Mobility Assessment: 1. 3 meter assessment time (seconds) 8 2. Gait observations: slow tentative pace General: patient oriented x3 Assessment & Plan Assessment & Plan (1) Invasive ductal carcinoma of left breast: Comment: Left breast lumpectomy February 2023 Code(s): C50.912 - Malignant neoplasm of unspecified site of left female breast Category: Medical Plan 89-year-old female presenting with a left breast carcinoma status post lumpectomy LOCalizer and sentinel node biopsy. She was evaluated by Medical Oncology (Luis) for possible adjuvant antiestrogen therapy but has subsequently declined any further therapy including radiation therapy. She will follow-up in 6 months for follow-up examination. Her most recent mammogram performed on 03/06/2024 revealed postoperative changes but no suspicious findings (BI-RADS 2). Exam today reveals postoperative changes in the left breast with a small residual seroma in the left axilla. No new suspicious findings were noted in either breast. I recommended follow-up examination in 6 months. Coding Level of Care Code Est Pt Level 3 (69948) Complex EM visit Add On G2211 Diagnoses Invasive ductal carcinoma of left breast C50.912
[2024-08-25 10:05] VITALS: BP 129/72; PULSE 84; BMI 28.2
== END 2024-08-25 10:16 | disposition home or self-care (01) ==
LOC: HO.HGS 09:53
PROVIDERS: PCP Internal Medicine; Visit Provider Surgery
DX: C50.912 Malignant neoplasm of unspecified site of left female breast (principal)
CPT/HCPCS: 99213; G2211

== ENCOUNTER → 2024-08-25 09:53 | Outpatient (BNVA) | payer MEDICARE, SELFPAY | PROVIDERS: PCP Internal Medicine; Visit Provider Surgery | DX: C50.912 Malignant neoplasm of unspecified site of left female breast (principal); Z80.3 Family history of malignant neoplasm of breast; Z98.890 Other specified postprocedural states | CPT/HCPCS: 99212 ==

== ENCOUNTER 2024-09-01 10:05 | Outpatient (AMB) | payer MEDICARE, SELFPAY ==
--- NOTE | 2024-09-01 10:15 | A.OFFVIS_ITS ---
Intake Visit Reasons: Cysto Intake Note: Patient is present for Cystoscopy Urology Medication:VITAMIN B12 Antibiotic Allergy:NONE Blood Thinner:NONE Lot:[id number] Exp:08/18/26 [employer] Supervisor Required: No Allergies No Known Allergies [No Known Allergies*] Allergy (Verified 09/01/24 10:15) HPI Comments Details: Gricelda is a pleasant female. She is a patient of Dr. Niak. She seen for the following urologic conditions - bladder cancer high-grade superficial Here for interval surveillance Bladder appears stable - submucosal changes but no new definitive areas of bladder cancer Last upper tract imaging 2019 Accompanied by niece Four month follow-up check cysto Bladder cancer initial diagnosis February 2019 - last TURBT September 2021 high-grade Bladder cancer diagnosed TURBT December 2019 - high-grade noninvasive Further follow-up was postponed secondary to COVID Bladder procedures - December 2019 TURBT - June 2020 TURBT high-grade noninvasive - January 2021 TURBT high-grade noninvasive - 10/01 TURBT high-grade noninvasive - 08/03 TURBT low-grade multifocal Cystoscopy - 08/02 NAD, 03/04 NAD, 05/06 NAD Adjuvant therapy - June 2020 - induction gemcitabine, February 2021 repeat induction gemcitabine - Boost 01/01 gemcitabine, 05/04 gemcitabine, 10/02 gemcitabine , 08/03 induction with mitomycin-C and cytarabine Cytology - 01/01 NAD, 05/04 NAD, 05/06 NAD PFSH Medical History Persistent atrial fibrillation Multinodular goiter (nontoxic) Paroxysmal atrial fibrillation Pedal edema Removal of staple Visit for suture removal Complicated urinary tract infection Dysphagia Screening for breast cancer Abnormal ultrasound of breast Abnormal mammogram of left breast Multiple falls Physical deconditioning Breast cancer, left Breast cancer Chronic renal insufficiency HTN (hypertension) Cardiac pacemaker in situ AV block Leg edema Screening for diabetes mellitus On beta jake at home Arthritis Vertigo MARIELA (obstructive sleep apnea) Sick sinus syndrome Peripheral vascular disease Menieres disease Urinary bladder cancer Obesity Gout GERD (gastroesophageal reflux disease) Hypercholesterolemia Surgical History History of lumpectomy of left breast (03/10/23) History of esophagogastroduodenoscopy (EGD) S/P cardiac pacemaker procedure Hx of colonoscopy History of cystoscopy S/P MARION-BSO (total abdominal hysterectomy and bilateral salpingo-oophorectomy) History of cataract surgery History of knee replacement History of tonsillectomy History of appendectomy History of cholecystectomy Family History Father Stroke Mother Heart disease Social History Household Members: None Housing: Apartment Are you a primary medicare coordinator to a significant other at home: No Do you presently have visiting nurse or other home services: No Alcohol intake: never Comment: patient refusing alarms Patient Tobacco Use Status: Former Tobacco user Tobacco use type: Cigarette e-Cigarette/Vaping Use: Never Used Second Hand Smoke Exposure: No Advance Directives Date on File: 09/15/21 service: No Current occupational status: retired Cognitive needs: No Hearing needs: Yes Vision needs: Yes Review of Systems Const Denies chills and Denies fever(s) Card Reports no additional complaints and Denies syncope Resp Denies cough GI Denies abdominal pain and Denies heartburn Reports as per HPI and Denies change in libido Neuro Denies syncope Psych Denies change in libido Endo Denies change in libido Physical Exam Const General: cooperative, healthy appearing, comfortable and no acute distress Orientation/consciousness: patient oriented x3 HEENT Face and sinus: Yes normal facial exam Mouth: moist mucous membranes Neck Neck: Yes normal visual inspection, Yes full ROM and Yes trachea midline Chest Chest palpation & inspection: normal inspection of the chest Resp Effort & Inspection: normal respiratory effort, able to speak in complete sentences and no respiratory distress GI Inspection: Yes normal to inspection Back/Spine/Pelvis Cervical Spine: normal cervical lordosis Thoracic/Lumbar Spine: thoracic and lumbar spine normal to inspection Skin General skin exam: no rashes or lesions noted Neuro General: patient oriented x3, gait normal, tone normal and moves all extremities Extrem General: Yes normal to inspection and Yes capillary refill normal Office Procedures Cystoscopy Consent Discussed risk and benefit or proposed procedure with the patient. Information consent for procedure given to the patient. Discussed technical aspects, risks, benefits and alternatives in full. Addressed all of the patient's questions and concerns regarding the procedure. The patient demonstrated knowledge and u nderstanding. They wish to proceed with this procedure. Preparation The patient was prepped in the usual manner. A duplicating machine mechanic was present and in the room. Genitalia was prepped with betadine solution in a sterile manner. Lidocaine Jelly 2% was placed into the urethra and 16Fr flexible Olympus cystoscope was inserted into the meatus after adequate lubrication. Procedure Meatus normal Urethra normal Bladder examination with retroflexion of cystoscope Bladder Orifices normal shape and position Trigone normal Bladder Capacity small Trabeculations grade 1 Cellule Formation None Diverticulum Formation None Mucosal Erythema mucosal changes patchy consistent with prior chemotherapy effect Bladder Tumor None [id number] DISPOSABLE SCOPE URO-G FLEXIBLE SCOPE Procedure code (CPT) selection complete Office Meds lidocaine HCl 2 % mucosal jelly in applicator Performing Provider: Francisco Dowell MD Performing [facility] Administered by: Korey Pedro LPN on 09/01/24 10:32 Dose Route Admin Location Dispensed Lot Number Expiration Date ND [employer] 10 mL intra-urethral 10 mL nitrofurantoin monohydrate/macrocrystals 100 mg capsule Performing Provider: Francisco Dowell MD Performing [facility] [place] Administered by: Korey Pedro LPN on 09/01/24 10:32 Dose Route Admin Location Dispensed Lot Number Expiration Date ND Hoisting Engineer P[employer] D[employer] 100 mg PO 1 cap Assessment & Plan Assessment & Plan (1) Urinary bladder cancer: Comment: TURBT superficial high-grade Dr. Meza TURBT Dr. 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, 06/30 HG Superficial September 2021 TURBT and gemcitabine installation Code(s): C67.9 - Malignant neoplasm of bladder, unspecified Category: Medical Qualifiers: Bladder location: unspecified site Qualified Code(s): C67.9 - Malignant neoplasm of bladder, unspecified Plan Four month follow-up check cysto Orders: Orders AMB Cystoscopy Today C67.9 - Malignant neoplasm of bladder, unspecified Patient Instructions: This note is constructed using voice recognition software. While every effort has been made to ensure accuracy body joiner errors may have been included. Imaging studies, laboratory and physical exam results were discussed and reviewed in detail. No major barriers to patient understanding were identified. An opportunity to ask questions regarding the treatment plan was provided. All questions were answered. The patient expressed understanding and agreement with the above treatment plan. The patient is aware they should contact our office by phone for worsening of their current condition or the appearance of new urologic symptoms. Compliance is encouraged with any medications and followup testing that is ordered. It is a privilege to participate in the urologic care of your patient. If you have any questions or concerns regarding treatment for the above conditions, or other urologic issues, please do not hesitate to contact me. The office telephone contact is [phone]. Sincerely, Dr Francisco Dowell MD, [facility] - Urology Compassionate Specialist Care for the Genitourinary System Coding Level of Care Code Est Pt Level 3 (87101) Complex EM visit Add On G2211 Diagnoses Malignant neoplasm of urinary bladder, unspecified site C67.9 Bladder location: unspecified site CPT Codes Cystoscopy - CPT: [id number] ([id number])
== END 2024-09-01 10:54 | disposition home or self-care (01) ==
LOC: HO.HUSH 10:06
PROVIDERS: PCP Internal Medicine; Visit Provider Urology
DX: C67.9 Malignant neoplasm of bladder, unspecified (principal); Z13.9 Encounter for screening, unspecified
CPT/HCPCS: 52000; 99213

== ENCOUNTER 2024-09-01 10:05 | Outpatient (REF) | payer MEDICARE, SELFPAY ==
[2024-09-01 16:36] LABS: Urine Cytology See Pathology rpt
== END 2024-09-01 10:06 | disposition home or self-care (01) ==
LOC: HO.LAB 10:05
PROVIDERS: PCP Internal Medicine; Visit Provider Urology
DX: C67.9 Malignant neoplasm of bladder, unspecified (principal)
CPT/HCPCS: 52000; 81003; 88112; 99212

== ENCOUNTER 2024-09-13 14:49 | Outpatient (AMB) | payer MEDICARE, SELFPAY ==
[2024-09-13 14:51] VITALS: BP 106/62; PULSE 67; BMI 28.1
--- NOTE | 2024-09-13 14:51 | MHC.OFFVIS ---
Vital Signs 09/13/24 14:51 Height 5 ft 1 in Weight 148 lb 9.465 oz BMI 28.1 BP 106/62 Blood Pressure Location Lt brachial Position Sitting Pulse 67 Pulse Source Pulse Oximeter Intake Visit Reasons: Discuss Biopsy procedure Intake Note: Patient present today to discuss biopsy procedure. 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 Here with sister Beth Otherwise history significant for left breast cancer s/p lumpectomy 2022 and bladder cancer diagnosed 2019, s/P TURBT 2020 and then chemotherapy over the past 3-4 years . Patient had a cervical spine CT in March 2024 for a fall which showed a hypodense 3 cm lesion in the right thyroid lobe. Ultrasound thyroid from 05/22/2024, I reviewed the images myself which showed a right superior 1 cm, solid hyperechoic taller than wide TR 4 category nodule, a right midpole 0.8 cm TR 3 category nodule, and a right inferior dominant 2.7 cm solid, hypoechoic nodule with microcalcifications, TR 4/TR 5 category. This meets criteria for FNA. Never been on any thyroid medicine. Patient currently denies heat or cold intolerance, diarrhea or constipation, hair loss, , anxiety, mood changes, low energy, changes in appearance of eyes or vision changes, tremors, increased diaphoresis or dry skin. ? No palpitations, has Afib Gained 15 lbs over the past 3-4 months, has initally lost over 30 lbs over the past 3-4 years while she was having chemo Endorses dysphagia with dry foods. Patient denies, pain on swallowing or voice changes or difficulty breathing. Patient denies any history of childhood neck radiation. Denies having ever used lithium, amiodarone or biotin supplements. Patient denies any family history of thyroid cancer or thyroid disease. Normal TSH from July 2024. Physical exam General: sitting comfortably in no acute distress HEENT: normocephalic/atraumatic, moist oral mucosa Neck: supple, symmetrical Cardiac: normal heart sounds Pulm: normal breath sounds B/L, no added breath sounds Abd: not distended, no tenderness Extremities: no edema, no signs of myxedema Laboratory Tests 12/21/23 10:39 TSH 2.28 Free T4 1.02 Laboratory Tests 07/11/24 15:48 TSH 2.60 US THYROID 05/22/24 CLINICAL INFORMATION: Nontoxic single thyroid nodule. COMPARISON: None available. TECHNIQUE: Linear transducer grayscale and color Doppler examination with attention to the region of the thyroid. FINDINGS: SIZE: Measurements of the thyroid lobes and nodules are given in sagittal, anteroposterior and transverse dimensions respectively. Right Thyroid Lobe: 4.5 x 2.1 x 1.7 cm, volume 9.0 mL. Parenchyma: The gland echotexture is homogeneous. Thyroid vascularity is normal. Left Thyroid Lobe: 3.5 x 1.3 x 1.1 cm, volume 3.0 mL. Parenchyma: The gland echotexture is homogeneous. Thyroid vascularity is normal. Isthmus: 0.4 cm in maximum AP dimension. Estimated total number of nodules greater than or equal to 1 cm: 2. Plate Developer nodules are described as follows: 1. Location: Right upper pole. Size: 0.9 x 1.0 x 0.9 cm, volume 0.4 mL. Nodule characteristics: Composition: Solid (2). Echogenicity: Hyperechoic (1). Shape: Taller than wide (3). Margins: Smooth (0). Echogenic Foci: None (0). ACR TI-RADS total points: 6 ACR TI-RADS category: 4 2. Location: Right mid pole. Size: 0.6 x 0.7 x 0.8 cm, volume 0.2 mL. Nodule characteristics: Composition: Solid (2). Echogenicity: Hyperechoic (1). Shape: Not taller than wide (0). Margins: Smooth (0). Echogenic Foci: None (0). ACR TI-RADS total points: 3 ACR TI-RADS category: 3 3. Location: Right lower pole. Size: 2.7 x 2.4 x 2.6 cm, volume 8.9 mL. Nodule characteristics: Composition: Solid/almost completely solid (2). Echogenicity: Cannot be determined (1). Shape: Not taller than wide (0). Margins: Smooth (0). Echogenic Foci: None (0). ACR TI-RADS total points: 3 ACR TI-RADS category: 3 NODES: No lymphadenopathy is seen in the tissue surrounding the thyroid gland. US/US thyroid IMPRESSION: 1. There is a right lower pole 2.7 cm TR category 3 nodule. FNA advised. 2. There is a right upper pole 1.0 cm TR category 4 nodule. Recommend follow-up as per below. 3. There is a 0.8 cm right mid pole TR category 3 nodule. No follow-up recommended. 4. The surrounding thyroid parenchyma is normal. [facility] Medical History Persistent atrial fibrillation Multinodular goiter (nontoxic) Paroxysmal atrial fibrillation Pedal edema Removal of staple Visit for suture removal Complicated urinary tract infection Dysphagia Screening for breast cancer Abnormal ultrasound of breast Abnormal mammogram of left breast Multiple falls Physical deconditioning Breast cancer, left Breast cancer Chronic renal insufficiency HTN (hypertension) Cardiac pacemaker in situ AV block Leg edema Screening for diabetes mellitus On beta jake at home Arthritis Vertigo MARIELA (obstructive sleep apnea) Sick sinus syndrome Peripheral vascular disease Menieres disease Urinary bladder cancer Obesity Gout GERD (gastroesophageal reflux disease) Hypercholesterolemia Surgical History History of lumpectomy of left breast (03/10/23) History of esophagogastroduodenoscopy (EGD) S/P cardiac pacemaker procedure Hx of colonoscopy History of cystoscopy S/P MARION-BSO (total abdominal hysterectomy and bilateral salpingo-oophorectomy) History of cataract surgery History of knee replacement History of tonsillectomy History of appendectomy History of cholecystectomy Family History Father Stroke Mother Heart disease Social History Household Members: None Housing: Apartment Are you a primary rn progressive care to a significant other at home: No Do you presently have visiting nurse or other home services: No Alcohol intake: never Comment: patient refusing alarms Patient Tobacco Use Status: Former Tobacco user Tobacco use type: Cigarette e-Cigarette/Vaping Use: Never Used Second Hand Smoke Exposure: No Advance Directives Date on File: 09/15/21 service: No Current occupational status: retired Cognitive needs: No Hearing needs: Yes Vision needs: Yes Assessment & Plan Assessment & Plan (1) Multinodular goiter (nontoxic): Code(s): E04.2 - Nontoxic multinodular goiter Category: Medical Plan: 89-year-old female with no family history of thyroid cancer, with no personal history of head or neck radiation coming in today for 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 Ultrasound thyroid from 05/22/2024, I reviewed the images myself which showed a right superior 1 cm, solid hyperechoic taller than wide TR 4 category nodule, a right midpole 0.8 cm TR 3 category nodule, and a right inferior dominant 2.7 cm solid, hypoechoic nodule with microcalcifications, TR 4/TR 5 category. This meets criteria for FNA. She has mild intermittent dysphagia, nothing significant. I explained that it is common to have thyroid nodules. About 95% of the time these nodules are benign. However if the nodule is > 1 cm in size or suspicious on ultrasound then a fine need aspiration biopsy is recommended. Previously we had book the patient for FNA biopsy, however recently she has had multiple hospitalizations for CHF, and she states her in 10 that even if fever defined thyroid cancer on her biopsy, she would not want to have any surgery. So there is not much utilization to doing a biopsy. Patient understands there is a 5-10% risk of thyroid cancer in these nodules which could spread and be fatal, however at this time she would prefer to proceed with ultrasound surveillance. Last TSH normal from July 2024. Plan: -ordered repeat thyroid ultrasound to be done in August 2025 prior to follow up in 1 year in September 2025 -ordered TSH, free T4 to be done prior to follow up in September 2025 Plan See above Orders: Orders Thyroid Stimulating Hormone 1 Year E04.2 - Nontoxic multinodular goiter Free T4 (Free Thyroxine) 1 Year E04.2 - Nontoxic multinodular goiter US thyroid 08/20/25 E04.2 - Nontoxic multinodular goiter Patient Instructions: Do thyroid ultrasound in August 2025 and follow up in September 2025 with me in clinic Someone will call you to schedule the ultrasound Do blood work 3 day prior to appointment orders in place Coding Level of Care Code Est Pt Level 3 (87028) Diagnoses Multinodular goiter (nontoxic) E04.2
== END 2024-09-13 15:17 | disposition home or self-care (01) ==
LOC: HO.ENCR 14:49
PROVIDERS: PCP Internal Medicine; Visit Provider Student in an Organized Health Care Education/Training Program
DX: E04.2 Nontoxic multinodular goiter (principal)
CPT/HCPCS: 99213

== ENCOUNTER → 2024-09-13 14:49 | Outpatient (BNVA) | payer MEDICARE, SELFPAY | PROVIDERS: PCP Internal Medicine; Visit Provider Student in an Organized Health Care Education/Training Program | DX: E04.2 Nontoxic multinodular goiter (principal) | CPT/HCPCS: 99212 ==

== ENCOUNTER 2024-10-24 14:18 | Outpatient (AMB) | payer MEDICARE, SELFPAY ==
[2024-10-24 14:36] VITALS: BP 120/76; PULSE 68; BMI 27.1
--- NOTE | 2024-10-24 14:36 | MHC.OFFVIS ---
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: No Allergies No Known Allergies (No Known Allergies*) Allergy (Verified 09/13/24 14:57) Medication List - Last Reconciled 10/24/24 by Facundo Solis MD apixaban (Eliquis) 5 mg PO BID cholecalciferol (vitamin D3) 25 mcg PO DAILY coenzyme Q10 (Co Q-10) 100 mg PO DAILY cyanocobalamin (vitamin B-12) 1,000 mcg PO DAILY cyclosporine 0.05% (Restasis) 1 drp ophthalmic (eye) BID furosemide 40 mg See Protocol PO BID gabapentin 300 mg PO BEDTIME magnesium oxide 400 mg PO BID meclizine 25 mg PO DAILY metoprolol succinate ER 25 mg See Protocol PO DAILY nystatin 1 appl topical DAILY omeprazole 20 mg PO DAILY@0630 polyethylene glycol 3350 (Miralax) 17 grams PO DAILY PRN simvastatin 20 mg PO BEDTIME spironolactone 25 mg See Protocol PO BID HPI Comments Details: Gricelda comes for follow-up, accompanied by her daughter. She was admitted in July with decompensated congestive heart failure. She had an echocardiogram at that time which had shown normal LV ejection fraction with significantly elevated right atrial pressures. This was new onset CHF for her. Since then she was started on high dose Lasix 40 mg b.i.d. along with spironolactone therapy 25 mg b.i.d.. She has been doing well. She has not had much significant worsening heart failure symptoms. Today she comes in and last time when we had seen her in March she was in persistent atrial fibrillation. In the time we decided to pursue rate control. However she comes in today he is noted to be in atrially paced rhythm and has been atrially paced rhythm with the last few months. She is limited in activity level and does get exertional shortness of breath. She is currently on full oral anticoagulation with Eliquis 5 mg b.i.d.. No bleeding issues or neurologic events. No lightheadedness, syncope. Takes all her medications regularly. [facility] Medical History (Updated 10/25/24 @ 14:47 by Facundo Solis MD) Paroxysmal atrial fibrillation Acute diastolic (congestive) heart failure Persistent atrial fibrillation Multinodular goiter (nontoxic) Pedal edema Removal of staple Visit for suture removal Complicated urinary tract infection Dysphagia Screening for breast cancer Abnormal ultrasound of breast Abnormal mammogram of left breast Multiple falls Physical deconditioning Breast cancer, left Breast cancer Chronic renal insufficiency HTN (hypertension) Cardiac pacemaker in situ AV block Leg edema Screening for diabetes mellitus On beta jake at home Arthritis Vertigo MARIELA (obstructive sleep apnea) Sick sinus syndrome Peripheral vascular disease Menieres disease Urinary bladder cancer Obesity Gout GERD (gastroesophageal reflux disease) Hypercholesterolemia Surgical History History of lumpectomy of left breast (03/10/23) History of esophagogastroduodenoscopy (EGD) S/P cardiac pacemaker procedure Hx of colonoscopy History of cystoscopy S/P MARION-BSO (total abdominal hysterectomy and bilateral salpingo-oophorectomy) History of cataract surgery History of knee replacement History of tonsillectomy History of appendectomy History of cholecystectomy Family History Father Stroke Mother Heart disease Social History Household Members: None Housing: Apartment Are you a primary certified caregiver to a significant other at home: No Do you presently have visiting nurse or other home services: No Alcohol intake: never Comment: patient refusing alarms Patient Tobacco Use Status: Former Tobacco user Tobacco use type: Cigarette e-Cigarette/Vaping Use: Never Used Second Hand Smoke Exposure: No Advance Directives Date on File: 09/15/21 service: No Current occupational status: retired Cognitive needs: No Hearing needs: Yes Vision needs: Yes Review of Systems Const Denies chills, Denies fatigue, Denies fever(s), Denies frequent falls, Denies weakness, Denies weight gain and Denies weight loss ENT Denies dizziness Card Denies chest pain, Denies leg edema, Denies lightheadedness, Denies palpitations, Denies dyspnea, Denies dyspnea on exertion, Denies orthopnea and Denies other (loss of consciousness) Resp Denies cough, Denies dyspnea and Denies dyspnea on exertion GI Denies hematochezia and Denies change in stool character Musc Denies abnormal gait, Denies muscle weakness, Denies numbness, Denies radiating pain into limb and Denies tingling Neuro Denies Abnormal speech present, Denies abnormal gait, Denies dizziness, Denies frequent falls, Denies numbness, Denies tingling and Denies weakness Endo Denies fatigue and Denies palpitations Physical Exam Vital Signs: Last Vital Signs Pulse 68 10/24/24 14:36 BP 120/76 10/24/24 14:36 BMI result Body Mass Index 27.1 Const General: comfortable, alert and awake Nutritional Appearance: other (Frail elderly woman) Limitations: ambulation with walker HEENT Other: Unremarkable Neck Neck: Yes trachea midline, Yes supple and No no JVD Chest Chest palpation & inspection: normal inspection of the chest Resp Effort & Inspection: normal respiratory effort Auscultation: clear to auscultation bilaterally, no crackles, no wheezes and diminished lung sounds Cardio Jugular venous distension: no JVD Palpation: normal PMI Rate: regular rate Rhythm: regular rhythm Heart sounds: S1 normal heart sound present, S2 normal heart sound present, no gallops, no murmurs and no rubs GI Palpation (GI): Soft to palpation Back/Spine/Pelvis Other: unremarkable Skin General skin exam: no rashes or lesions noted Neuro Cranial nerves: Yes Other cranial nerve findings present Speech: No Abnormal speech present Extrem General: No clubbing, No cyanosis and Yes edema ( Bilateral lymphedema, right greater than left) Psych Mental Status: other Office Procedures Cardiac Device Check Cardiac Device Check Details: Dual-chamber Medtronic pacemaker in place. Programmed in VVI was reprogrammed to DDDR at 60 beats per minute. Overall minimal burden of atrial fibrillation noted. Atrial ventricular pacing thresholds are adequate. Atrial ventricular sensing is adequate. Pacing lead impedance is stable. Battery life is at average of 3 months. [id number] Cardiac Device Check, pacemaker dual lead Procedure code (CPT) selection complete Assessment & Plan Assessment & Plan (1) Heart failure with preserved ejection fraction: Code(s): I50.30 - Unspecified diastolic (congestive) heart failure Category: Medical Plan: Heart failure preserved ejection fraction, clinically euvolemic and well compensated. At this point time we discussed about management well. She is currently on high dose Lasix as well as spironolactone therapy. Continue the same. Will check BNP today although no change in therapy will be pursued based on that. Check BNP. Signs and symptoms of heart failure were discussed. Daily weight monitoring avoidance salt loading was discussed. Increase activity level gradually was discussed with her. Improve nutrition and muscle strengthening exercises was discussed. (2) Paroxysmal atrial fibrillation: Comment: Incidentally found on pacer therapy no treatment(patient has seen Cardiology) Code(s): I48.0 - Paroxysmal atrial fibrillation Category: Medical Plan: Paroxysmal atrial fibrillation currently suppressed and converted back to sinus rhythm after recent prolonged episode of persistent atrial fibrillation. Will take the benefit of maintaining rhythm and started on amiodarone therapy to maintain rhythm in the long run which will help her heart failure syndrome. Continue full oral anticoagulation, currently on Eliquis 5 mg b.i.d.. Quarterly renal function test should be pursued. (3) Cardiac pacemaker in situ: Comment: Medtronic dual-chamber pacemaker in place Code(s): Z95.0 - Presence of cardiac pacemaker Category: Medical Plan: Cardiac pacemaker in-situ. Pacemaker is working well. Reprogrammed for adequate function. Low battery life noted. Will follow up in the clinic in 6 weeks for follow-up. Thank you for allowing me to partake in her care Orders: Orders Basic Metabolic Panel 10/24/24 I50.30 - Unspecified diastolic (congestive) heart failure B Type Natriuretic Peptide 10/24/24 I50.30 - Unspecified diastolic (congestive) heart failure Medications: New amiodarone 200 mg PO DAILY 30 tabs 5RF Coding Level of Care Code Est Pt Level 4 (80921) Complex EM visit Add On G2211 Diagnoses Heart failure with preserved ejection fraction I50.30 Paroxysmal atrial fibrillation I48.0 Cardiac pacemaker in situ Z95.0 CPT Codes Cardiac Device Check - Cardiac Device 2: [id number]-[id number] Cardiac Device Check, pacemaker dual lead ([id number])
== END 2024-10-24 15:13 | disposition home or self-care (01) ==
PROVIDERS: PCP Internal Medicine; Visit Provider Internal Medicine Cardiovascular Disease
DX: I50.30 Unspecified diastolic (congestive) heart failure (principal); I48.0 Paroxysmal atrial fibrillation; Z95.0 Presence of cardiac pacemaker
CPT/HCPCS: 93280; 99214; G2211

== ENCOUNTER 2024-10-24 14:18 | Outpatient (REF) | payer MEDICARE, SELFPAY ==
[2024-10-24 16:53] LABS: B Type Natriuretic Peptide 1430 pg/mL (<100)
[2024-10-24 16:57] LABS: Anion Gap 15 (12-20); Blood Urea Nitrogen 24 mg/dL (9-16); Calcium 9.0 mg/dL (8.4-10.2); Carbon Dioxide 32 mmol/L (22-29); Chloride 99 mmol/L (96-108); Estimated Glomerular Filt Rate 40; Potassium 3.1 mmol/L (3.3-5.1); Sodium 143 mmol/L (135-145)
== END 2024-10-24 14:19 | disposition home or self-care (01) ==
LOC: HO.LAB 14:18
PROVIDERS: PCP Internal Medicine; Visit Provider Internal Medicine Cardiovascular Disease
DX: I48.0 Paroxysmal atrial fibrillation (principal); I50.30 Unspecified diastolic (congestive) heart failure; Z95.0 Presence of cardiac pacemaker; Z79.01 Long term (current) use of anticoagulants; Z79.899 Other long term (current) drug therapy
CPT/HCPCS: 36415; 80048; 83880; 93280; 99212

== ENCOUNTER 2024-11-13 11:17 | Outpatient (AMB) | payer MEDICARE, SELFPAY ==
--- NOTE | 2024-11-13 11:19 | MHC.PC.OV ---
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 Required: No Accompanied by: Self / Same As Patient Allergies No Known Allergies (No Known Allergies*) Allergy (Verified 11/13/24 11:27) Medication List - Last Reconciled 11/13/24 by Gracie Barone PA-C amiodarone 200 mg PO DAILY apixaban (Eliquis) 5 mg PO BID cholecalciferol (vitamin D3) 25 mcg PO DAILY coenzyme Q10 (Co Q-10) 100 mg PO DAILY cyanocobalamin (vitamin B-12) 1,000 mcg PO DAILY cyclosporine 0.05% (Restasis) 1 drp ophthalmic (eye) BID furosemide 40 mg See Protocol PO BID gabapentin 300 mg PO BEDTIME magnesium oxide 400 mg PO BID meclizine 25 mg PO DAILY metoprolol succinate ER 25 mg See Protocol PO DAILY nystatin 1 appl topical DAILY omeprazole 20 mg PO DAILY@0630 polyethylene glycol 3350 (Miralax) 17 grams PO DAILY PRN simvastatin 20 mg PO BEDTIME spironolactone 25 mg See Protocol PO BID Tobacco use date assessed: 11/13/24 Fall risk assessment: 2 + Falls in past year Last assessed Fall Risk: 11/13/24 Dental Screening Dental Screen Date: 11/13/24 Did you have a dental visit in the last 12 months?: No Did you have a dental problem in the last 6 months where you did not have access to dental care?: No Was dental information given to patient?: No HPI 1 [facility] f/u HPI Details 89-year-old female with past medical history of hypercholesterolemia, GERD, gout, urinary bladder cancer, peripheral vascular disease, impaired glucose tolerance, hypertension, renal insufficiency, history of invasive ductal carcinoma of the left breast, obstructive sleep apnea, atrial fibrillation, heart failure last seen 07/[address] Naik coming in for follow up. In review of the notes, patient was seen by Cardiology 10/2024 continued on Lasix and spironolactone and continued on Eliquis. Seen by endocrinology 09/2024 ordered for repeat thyroid ultrasound and additional blood work. Seen by urology 08/2024 bladder appears stable advised follow up in 4 months with repeat cystoscopy. Seen by General surgery 08/2024 recommended repeat breast exam in 6 months. Presenting with follow-up on multiple health issues. The patient began experiencing hearing difficulties approximately two months ago, with intermittent improvement and worsening. A hearing test is scheduled for December 12. The patient reports difficulty with bowel movements, often going days without a bowel movement. She has not been adhering to dietary recommendations such as eating prunes and drinking water. The patient experiences dark red bleeding when wiping, likely due to hemorrhoids or an anal fissure from constipation. There is a noted decline in memory, with a need for a cognitive issue diagnosis to access services. An MRI has shown changes, and a referral to a neurologist is planned. The patient has bilateral knee replacements and reports pain, possibly due to changes in seating posture. She recently fell but did not sustain significant injury. Recent blood work indicated low potassium levels, likely due to diuretic use. Dietary adjustments are recommended. [facility] Medical History Paroxysmal atrial fibrillation Acute diastolic (congestive) heart failure Persistent atrial fibrillation Multinodular goiter (nontoxic) Pedal edema Removal of staple Visit for suture removal Complicated urinary tract infection Dysphagia Screening for breast cancer Abnormal ultrasound of breast Abnormal mammogram of left breast Multiple falls Physical deconditioning Breast cancer, left Breast cancer Chronic renal insufficiency Cardiac pacemaker in situ AV block Leg edema Screening for diabetes mellitus On beta jake at home Arthritis Vertigo MARIELA (obstructive sleep apnea) Sick sinus syndrome Peripheral vascular disease Menieres disease Urinary bladder cancer Obesity Gout GERD (gastroesophageal reflux disease) Hypercholesterolemia Surgical History History of lumpectomy of left breast (03/10/23) History of esophagogastroduodenoscopy (EGD) S/P cardiac pacemaker procedure Hx of colonoscopy History of cystoscopy S/P MARION-BSO (total abdominal hysterectomy and bilateral salpingo-oophorectomy) History of cataract surgery History of knee replacement History of tonsillectomy History of appendectomy History of cholecystectomy Family History Father Stroke Mother Heart disease Social History Household Members: None Housing: Apartment Are you a primary nursing care partner to a significant other at home: No Do you presently have visiting nurse or other home services: No Alcohol intake: never Comment: patient refusing alarms Patient Tobacco Use Status: Former Tobacco user Tobacco use type: Cigarette e-Cigarette/Vaping Use: Never Used Second Hand Smoke Exposure: No Advance Directives Date on File: 09/15/21 service: No Current occupational status: retired Cognitive needs: No Hearing needs: Yes Vision needs: Yes Questionnaire PHQ-9 Over the last 2 weeks, how often have you been bothered by any of the following problems? 1. Little interest or pleasure in doing things: not at all 2. Feeling down, depressed, or hopeless: not at all 3. Trouble falling or staying asleep, or sleeping too much: not at all Source: Developed by Drs. Wilver Hightower, Tanya Bardales, Thomas Perry and colleagues, with an educational mike from [employer]. Thrive Questionnaire Date Thrive assessed: 11/13/24 DESI-7 AMB Questionnaire DESI-7 Date DESI - 7 assessed: 11/13/24 Source: Developed by Drs. Wilver Hightower, Tanya Bardales, Thomas Perry and colleagues, with an educational mike from [employer]. Review of Systems Const Denies body aches, Denies chills, Denies fever(s) and Denies poor appetite Eyes Reports no additional complaints ENT Denies dizziness Card Denies chest pain, Denies edema, Denies irregular heart rhythm, Denies lightheadedness and Denies dyspnea Resp Denies dyspnea GI Reports constipation, Denies diarrhea, Denies nausea and Denies vomiting Reports no additional complaints Musc Reports no additional complaints and Denies abnormal gait Skin/Breast Reports system reviewed and no additional complaints, except as documented Neuro Denies abnormal gait and Denies dizziness Psych Reports no additional complaints Physical exam (Primary Care) Vital Signs: Last Vital Signs Pulse 88 11/13/24 11:21 BP 122/68 11/13/24 11:21 Pulse Ox 96 11/13/24 11:21 Oxygen Delivery Method Room Air 11/13/24 11:21 BMI result Body Mass Index 28.1 Tobacco/Smoking Status: Tobacco use Status Tobacco use date assessed 11/13/24 11/13/24 11:27 Patient Tobacco Use Status Former Tobacco user 11/13/24 11:27 Tobacco use type Cigarette 11/13/24 11:27 e-Cigarette/Vaping Use Never Used 11/13/24 11:27 Thrive Assessment: Date of Thrive Assessment Date Thrive assessed 11/13/24 11/13/24 11:27 Const General: cooperative, healthy appearing, comfortable and no acute distress Orientation/consciousness: patient oriented x3 HENMT Head: Yes normocephalic Ears: hearing grossly normal bilaterally and Abnormal EAC present excessive cerumen bilateral General nose exam: Normal external nose present Eyes General: appearance normal, both eyes and all related structures Conjunctivae: conjunctivae normal Neck Neck: Yes full ROM and Yes no lymphadenopathy Resp Effort & Inspection: normal respiratory effort Auscultation: clear to auscultation bilaterally, no crackles, no rales, no rhonchi and no wheezes Cardio Rate: regular rate Rhythm: regular rhythm Skin General skin exam: no rashes or lesions noted Neuro General: patient oriented x3 Gait exam (Neuro): Normal gait present Extrem General: Yes normal to inspection, Yes full ROM and No edema Psych Affect: normal affect Attitude: cooperative Insight: Good insight present (Psych) Judgement: Good judgement present (Psych) Office Procedures Cerumen Removal From which ear canal was the cerumen removed: bilateral Removal: cerumen loop/spoon Notes: patient tolerated procedure well, no complications and ear canal clear [id number] Wax Removal by Spoon/Curette Coding Level of Care Code Est Pt Level 4 (27741) Diagnoses Essential hypertension I10 Heart failure with preserved ejection fraction I50.30 Paroxysmal atrial fibrillation I48.0 Impaired fasting blood sugar R73.01 Thyroid nodule E04.1 Invasive ductal carcinoma of left breast C50.912 Malignant neoplasm of urinary bladder, unspecified site C67.9 Bladder location: unspecified site Memory impairment R41.3 Hearing difficulty H91.90 Impacted cerumen of right ear H61.21 Left knee pain M25.562 Constipation K59.00 CPT Codes Office Procedure - CPT: 05129-Uap Wax Removal by Spoon/Curette ([id number]) Assessment & Plan Assessment & Plan (1) Essential hypertension: Code(s): I10 - Essential (primary) hypertension Category: Medical Plan: Continue on current blood pressure medication. Avoid salt intake and encourage healthy diet and regular exercise. (2) Heart failure with preserved ejection fraction: Code(s): I50.30 - Unspecified diastolic (congestive) heart failure Category: Medical Plan: Recently seen by Cardiology advised to stay on the high does Lasix and spironolactone. Advised patient to monitor her daily weights. Clinically euvolemic today (3) Paroxysmal atrial fibrillation: Comment: Incidentally found on pacer therapy no treatment(patient has seen Cardiology) Code(s): I48.0 - Paroxysmal atrial fibrillation Category: Medical Plan: Patient is currently following with Cardiology on rate control with metoprolol and full oral anticoagulation with Eliquis. Asymptomatic at this time (4) Impaired fasting blood sugar: Code(s): R73.01 - Impaired fasting glucose Category: Medical Plan: Decrease the amount of carbohydrates such as pasta, bread, rice, and potatoes and limit the amount of sweets. Although fruits are generally healthy they should be eaten in moderation as they are still high in sugar. (5) Thyroid nodule: Comment: May 2024 There is a right lower pole 2.7 cm TR category 3 nodule. FNA advised. 2. There is a right upper pole 1.0 cm TR category 4 nodule. Recommend follow-up as per below. 3. There is a 0.8 cm right mid pole TR category 3 nodule. No follow-up recommended. 4. The surrounding thyroid parenchyma is normal. Code(s): E04.1 - Nontoxic single thyroid nodule Category: Medical Plan: Per endocrinology recommending repeat imaging with a appointment to follow. (6) Invasive ductal carcinoma of left breast: Comment: Left breast lumpectomy February 2023 Code(s): C50.912 - Malignant neoplasm of unspecified site of left female breast Category: Medical Plan: Seen by Dr. Correia recommended a six-month follow up for breast exam. Last imaging revealed benign findings. (7) Urinary bladder cancer: Comment: TURBT superficial high-grade Dr. Meza TURBT Dr. 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, / HG Superficial September 2021 TURBT and gemcitabine installation Code(s): C67.9 - Malignant neoplasm of bladder, unspecified Category: Medical Qualifiers: Bladder location: unspecified site Qualified Code(s): C67.9 - Malignant neoplasm of bladder, unspecified Plan: Continue to follow with Dr. Dowell plan to have repeat cystoscopy with a appointment in the upcoming months. (8) Memory impairment: Code(s): R41.3 - Other amnesia Category: Medical Plan: Patient has been struggling with memory impairment had imaging performed of the brain previously without any acute findings. Recommending Neurology referral which has been placed today. In [facility] [facility] services as she is having difficulty performing ADLs due to memory. (9) Hearing difficulty: Code(s): H91.90 - Unspecified hearing loss, unspecified ear Category: Medical Plan: Patient having hearing difficulty. She has an appointment in December for hearing test and hearing aid adjustment. (10) Impacted cerumen of right ear: Code(s): H61.21 - Impacted cerumen, right ear Category: Medical Plan: Bilateral ears were cleaned today using a lighted curette. Patient tolerated the procedure well and canal was atraumatic. TMs were visualized as intact with well aerated middle ear spaces without perforation or retraction. Advised patient against the use of Q-tips. (11) Left knee pain: Code(s): M25.562 - Pain in left knee Category: Medical Plan: Patient having left knee pain and does have a history of left knee replacement. She has been using Biofreeze which has been helping. She believes it to be related to new recent activity from rocking in her chair. Advised against this activity and continue use Biofreeze as needed. Offered x-ray which was declined today (12) Constipation: Code(s): K59.00 - Constipation, unspecified Category: Medical Plan: Reminded patient of the 3 rows of constipation; stay well hydrated, increase fiber intake and walking as tolerated. Sent prescription for MiraLax to be used as needed Plan The patient will undergo a hearing test on December 12 to further evaluate her hearing loss. A referral to a neurologist will be made to assess cognitive decline and determine the need for additional services. For constipation, the patient is advised to increase fluid intake and adhere to dietary recommendations, including consuming prunes and drinking water. MiraLax has been prescribed to aid bowel movements. The patient is encouraged to avoid using Q-tips for ear cleaning to prevent further cerumen impaction. For knee pain, the patient should monitor symptoms and consider an x-ray if pain persists or worsens. Dietary adjustments are recommended to address potassium deficiency, with an emphasis on consuming potassium-rich foods. The patient is advised to follow up with her armor officer regarding spironolactone use. This note was constructed using voice recognition software. While every effort has been made to ensure accuracy and chemistry lecturer, still areas may have been included sometimes these areas may affect the content or meeting of the given symptoms. Total time spent caring for the patient today was 20 minutes. This includes time spent before the visit reviewing the chart, time spent during the visit, and time spent after the visit and documentation. Patient was informed and verbally consented to the use of an ambient scribe for clinic note documentation during this visit. Orders: Orders Magnesium Today I50.30 - Unspecified diastolic (congestive) heart failure Comprehensive Met. Panel Today I50.30 - Unspecified diastolic (congestive) heart failure, Z00.00 - Encounter for general adult medical examination without abnormal findings Referrals Neurology Referral R41.3 - Other amnesia Medications: New polyethylene glycol 3350 (Miralax) 17 grams PO DAILY 238 grams 0RF Refilled spironolactone 25 mg See Protocol PO BID 90 tabs 0RF
[2024-11-13 11:21] VITALS: BP 122/68; PULSE 88; O2SAT 96; BMI 28.1
== END 2024-11-13 12:12 | disposition home or self-care (01) ==
LOC: HO.HMCH 11:17
PROVIDERS: PCP Internal Medicine
DX: H61.21 Impacted cerumen, right ear (principal)

== ENCOUNTER 2024-11-13 11:17 | Outpatient (REF) | payer MEDICARE, SELFPAY ==
[2024-11-13 15:05] LABS: Alanine Aminotransferase 7 U/L (0-31); Albumin Level 3.8 g/dL (3.5-5.0); Alkaline Phosphatase 103 U/L (39-117); Anion Gap 18 (12-20); Aspartate Amino Transferase 36 U/L (5-31); Blood Urea Nitrogen 29 mg/dL (9-16); Calcium 8.9 mg/dL (8.4-10.2); Carbon Dioxide 33 mmol/L (22-29); Chloride 95 mmol/L (96-108); Estimated Glomerular Filt Rate 28; Magnesium 1.2 mg/dL (1.6-2.6); Potassium 3.0 mmol/L (3.3-5.1); Sodium 143 mmol/L (135-145); Total Protein 7.6 g/dL (6.5-8.0)
== END 2024-11-13 11:18 | disposition home or self-care (01) ==
LOC: HO.LAB 11:17
PROVIDERS: PCP Internal Medicine
DX: I11.0 Hypertensive heart disease with heart failure (principal); I50.30 Unspecified diastolic (congestive) heart failure; R73.01 Impaired fasting glucose; I48.0 Paroxysmal atrial fibrillation; E04.1 Nontoxic single thyroid nodule; R41.3 Other amnesia; H61.21 Impacted cerumen, right ear; M25.562 Pain in left knee; C50.912 Malignant neoplasm of unspecified site of left female breast; C67.9 Malignant neoplasm of bladder, unspecified; K59.00 Constipation, unspecified
CPT/HCPCS: 36415; 69210; 80053; 83735; 99212

== ENCOUNTER 2024-11-29 08:18 | Outpatient (AMB) | payer MEDICARE, SELFPAY ==
--- NOTE | 2024-11-29 08:19 | AM.OFFWIN_ITS ---
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 Is last menstrual period known: No Post menopausal: Yes Patient : No Allergies No Known Allergies (No Known Allergies*) Allergy (Verified 11/29/24 08:26) Do you need a note to return to daycare/school/sports/work: No HPI HPI Comments History of Present Illness Details Patient is an 89yo F who presents to office with constipation Ongoing x 1 week She said hx of constipation similar to this Should be taking prines and miralax; has been not good at taking this No abdominal pain + rectal pain, /10 for one weke intermi ttently Last flatulence unsure + very small bowel movement and when wip es notices stool; last one was this am No nausea or vomiting No fever or chills She noticed slight red blood on toilet paper x 2 days; unsure if hemorrhoids Blood not in toilet bowl Only notices after straining for BM On Elaquis for afib PFSH Medical History Paroxysmal atrial fibrillation Acute diastolic (congestive) heart failure Persistent atrial fibrillation Multinodular goiter (nontoxic) Pedal edema Removal of staple Visit for suture removal Complicated urinary tract infection Dysphagia Screening for breast cancer Abnormal ultrasound of breast Abnormal mammogram of left breast Multiple falls Physical deconditioning Breast cancer, left Breast cancer Chronic renal insufficiency Cardiac pacemaker in situ AV block Leg edema Screening for diabetes mellitus On beta jake at home Arthritis Vertigo MARIELA (obstructive sleep apnea) Sick sinus syndrome Peripheral vascular disease Menieres disease Urinary bladder cancer Obesity Gout GERD (gastroesophageal reflux disease) Hypercholesterolemia Surgical History History of lumpectomy of left breast (03/10/23) History of esophagogastroduodenoscopy (EGD) S/P cardiac pacemaker procedure Hx of colonoscopy History of cystoscopy S/P MARION-BSO (total abdominal hysterectomy and bilateral salpingo-oophorectomy) History of cataract surgery History of knee replacement History of tonsillectomy History of appendectomy History of cholecystectomy Family History Father Stroke Mother Heart disease Social History Household Members: None Housing: Apartment Are you a primary pet caretaker to a significant other at home: No Do you presently have visiting nurse or other home services: No Alcohol intake: never Comment: patient refusing alarms Patient Tobacco Use Status: Former Tobacco user Tobacco use type: Cigarette e-Cigarette/Vaping Use: Never Used Second Hand Smoke Exposure: No Advance Directives Date on File: 09/15/21 Patient : No service: No Current occupational status: retired Cognitive needs: No Hearing needs: Yes Vision needs: Yes Review of Systems Const Denies chills, Denies fever(s) and Denies weakness ENT Denies dizziness Card Denies chest pain Resp Denies cough GI Denies abdominal pain, Denies melena, Reports hematochezia (not in stool. + on toilet paper on occasion. small amount), Reports constipation, Denies GI cramping, Denies fecal incontinence, Denies diarrhea, Denies loose stools, Denies nausea and Denies vomiting Musc Denies back pain and Denies myalgias Skin/Breast Denies rash Neuro Denies dizziness and Denies weakness Physical Exam Exam Exam: General: Non-toxic, NAD. Speaking full sentences. Skin: Warm dry throughout Eye: EOMI HENT: Airway patent. Uvula midline. No pharyngeal erythema or edema. No MENDING CARRIER. Respiratory: CTA bilaterally. No wheezes, rales or rhonchi Cardiac: RRR. Abdominal: BS diminished throughout. No distension. No ttp, rebound or guarding. Rectal: No external hemorrhoids noted. No active rectal bleeding. No perirecal masses or abscess noted MSK: Full ROM extremities. Neurology: Alert. No aphasia or facial droop. Gait without abnormality with aid of walker Psych: Good mood and affect Vital Signs: Last Vital Signs Temp 97.5 F 11/29/24 08:20 Pulse 86 08/20/25 08:20 BP 130/84 11/29/24 08:20 Pulse Ox 99 11/29/24 08:20 Oxygen Delivery Method Room Air 11/29/24 08:20 BMI result Body Mass Index 29.4 Assessment & Plan Assessment & Plan (1) Constipation: Code(s): K59.00 - Constipation, unspecified Qualifiers: Constipation type: unspecified constipation type Qualified Code(s): K59.00 - Constipation, unspecified Plan: Patient seen and evaluated. Sister present with patient Vital signs stable and she is in no acute distress No external rectal bleeding, masses or abscess noted KUB in office: I viewed as no obstruction. Large amount of stool in transverse colon Discussed with pt and her sister that she should: 1. Continue miralax; increase her fluid hydration due to mechanism of action 2. Increase fibre in diet 3. Continue daily exercise 4. Try to bowel train and attempt BM within 2 hours of eating meals 5. Prescribed enema but she then said she took one yesterday without relief, she will try again and if no sucess 6. Take Bisycodyl x 1 dose and a second ose in 24 hours if unsucessful DIscussed warning signs such as rectal bleeding in toilet bowl, black stool, abdominal pain, weakness, inability to have BM etc then she needs to go to ER We discussed maintance meds for constipation to ensure this doesnt happen again + PCP follow up Patient gave verbal understanding and had no additional questions or concerns at time of discharge All questions answered Orders: Orders XR KUB Today K59.00 - Constipation, unspecified Medications: New mineral oil (Fleet Mineral Oil enema) discard any unused portion 118 mL MD DAILY PRN 118 mL 0RF constipation bisacodyl Take 5mg and if unsuccessful take the second tablet the next day 5 mg PO DAILY 2 tabs 0RF 2 days Coding Level of Care Code Est Pt Level 3 (60664) Diagnoses Constipation, unspecified constipation type K59.00 Constipation type: unspecified constipation type
[2024-11-29 08:20] VITALS: BP 130/84; PULSE 86; TEMP 36.4; O2SAT 99; BMI 29.4
== END 2024-11-29 10:01 | disposition home or self-care (01) ==
PROVIDERS: PCP Internal Medicine; Visit Provider Physician Assistant
DX: K59.00 Constipation, unspecified (principal)

== ENCOUNTER 2024-11-29 08:18 | Outpatient (REF) | payer MEDICARE, SELFPAY ==
--- NOTE | ~2024-11-29 | XR_ITS ---
EXAMINATION: XR ABDOMEN KUB CLINICAL INDICATION: K59.00 - Constipation, unspecified COMPARISON: None available. TECHNIQUE: AP view of the abdomen. FINDINGS: There are surgical clips in the right upper quadrant likely from cholecystectomy. There is gaseous distention of the transverse colon. There is a small amount of stool in the right, transverse and descending colon. There is moderate to large bowel stool in the rectum. There is mild to moderate axial narrowing of the right hip joint and marginal osteophyte formation. There is moderate narrowing, sclerosis, and osteophytes involving the pubic symphysis joint. There is a metallic clip projecting above the left acetabular roof region. XR/XR KUB IMPRESSION: Moderate to large amount stool in the rectum. Mild to moderate axial joint space and osteophyte formation involving the right hip joint. Moderate degenerative changes involving the pubic symphysis joint. Electronically signed by: Chris Wagner MD 11/29/2024 10:21 AM EDT
== END 2024-11-29 08:19 | disposition home or self-care (01) ==
LOC: HO.HMGCX 08:18
PROVIDERS: PCP Internal Medicine; Visit Provider Physician Assistant
DX: K59.00 Constipation, unspecified (principal)
CPT/HCPCS: 74018; 99212

== ENCOUNTER → 2024-11-29 08:57 | Outpatient (BNV) | payer MEDICARE, SELFPAY | PROVIDERS: PCP Internal Medicine; Visit Provider Radiology Diagnostic Radiology | DX: K59.00 Constipation, unspecified (principal) | CPT/HCPCS: 74018 ==

== ENCOUNTER 2024-12-05 15:31 | Outpatient (REF) | payer MEDICARE, SELFPAY ==
[2024-12-05 18:00] LABS: Anion Gap 12 (12-20); B Type Natriuretic Peptide 260 pg/mL (<100); Blood Urea Nitrogen 17 mg/dL (9-16); Calcium 9.4 mg/dL (8.4-10.2); Carbon Dioxide 26 mmol/L (22-29); Chloride 107 mmol/L (96-108); Estimated Glomerular Filt Rate 30; Magnesium 1.9 mg/dL (1.6-2.6); Potassium 5.6 mmol/L (3.3-5.1); Sodium 139 mmol/L (135-145)
== END 2024-12-05 15:32 | disposition home or self-care (01) ==
LOC: HO.LAB 15:31
PROVIDERS: PCP Internal Medicine; Visit Provider Internal Medicine Cardiovascular Disease
DX: Z45.02 Encounter for adjustment and management of automatic implantable cardiac defibrillator (principal); I50.30 Unspecified diastolic (congestive) heart failure; I50.810 Right heart failure, unspecified; I48.0 Paroxysmal atrial fibrillation; I49.5 Sick sinus syndrome; Z79.01 Long term (current) use of anticoagulants; Z79.899 Other long term (current) drug therapy
CPT/HCPCS: 36415; 80048; 83735; 83880; 93280; 99212

== ENCOUNTER 2024-12-05 15:31 | Outpatient (AMB) | payer MEDICARE, SELFPAY ==
[2024-12-05 15:37] VITALS: BP 142/78; PULSE 72; BMI 28.3
--- NOTE | 2024-12-05 15:37 | A.OFFVIS_ITS ---
Vital Signs 12/05/24 15:37 Height 5 ft 1 in Weight 149 lb 14.629 oz BMI 28.3 BP 142/78 H Blood Pressure Location Lt brachial Position Sitting Pulse 72 Intake Visit Reasons: 6 wk w/ device ck per NS Intake Note: 6 week follow-up with [facility] - Recurrence Backofficetronic check feeling ok Behavioral Health Consultant Required: No Allergies No Known Allergies (No Known Allergies*) Allergy (Verified 11/29/24 08:26) Medication List - Last Reconciled 12/05/24 by Facundo Solis MD amiodarone 200 mg PO DAILY apixaban (Eliquis) 5 mg PO BID bisacodyl 5 mg PO DAILY 2 days cholecalciferol (vitamin D3) 25 mcg PO DAILY coenzyme Q10 (Co Q-10) 100 mg PO DAILY cyanocobalamin (vitamin B-12) 1,000 mcg PO DAILY cyclosporine 0.05% (Restasis) 1 drp ophthalmic (eye) BID gabapentin 300 mg PO BEDTIME meclizine 25 mg PO DAILY mineral oil (Fleet Mineral Oil enema) 118 mL AL DAILY PRN nystatin 1 appl topical DAILY omeprazole 20 mg PO DAILY@0630 simvastatin 20 mg PO BEDTIME spironolactone 25 mg See Protocol PO BID HPI Comments Details: Gricelda comes for follow-up. She has run out of her furosemide since yesterday. He has not had any significant weight gain of fluid gain since yesterday. Few weeks ago she had blood work which showed elevated creatinine and low magnesium level. She is currently out of magnesium supplementation as well. She has not had any worsening heart failure symptoms. No prolonged palpitation irregular heartbeat. No lightheadedness, syncope. Activity level is pretty low. [facility] Medical History Paroxysmal atrial fibrillation Acute diastolic (congestive) heart failure Persistent atrial fibrillation Multinodular goiter (nontoxic) Pedal edema Removal of staple Visit for suture removal Complicated urinary tract infection Dysphagia Screening for breast cancer Abnormal ultrasound of breast Abnormal mammogram of left breast Multiple falls Physical deconditioning Breast cancer, left Breast cancer Chronic renal insufficiency Cardiac pacemaker in situ AV block Leg edema Screening for diabetes mellitus On beta jake at home Arthritis Vertigo MARIELA (obstructive sleep apnea) Sick sinus syndrome Peripheral vascular disease Menieres disease Urinary bladder cancer Obesity Gout GERD (gastroesophageal reflux disease) Hypercholesterolemia Surgical History History of lumpectomy of left breast (03/10/23) History of esophagogastroduodenoscopy (EGD) S/P cardiac pacemaker procedure Hx of colonoscopy History of cystoscopy S/P MARION-BSO (total abdominal hysterectomy and bilateral salpingo-oophorectomy) History of cataract surgery History of knee replacement History of tonsillectomy History of appendectomy History of cholecystectomy Family History Father Stroke Mother Heart disease Social History Household Members: None Housing: Apartment Are you a primary healthcare market consultant to a significant other at home: No Do you presently have visiting nurse or other home services: No Alcohol intake: never Comment: patient refusing alarms Patient Tobacco Use Status: Former Tobacco user Tobacco use type: Cigarette e-Cigarette/Vaping Use: Never Used Second Hand Smoke Exposure: No Advance Directives Date on File: 09/15/21 service: No Current occupational status: retired Cognitive needs: No Hearing needs: Yes Vision needs: Yes Review of Systems Const Denies chills, Denies fatigue, Denies fever(s), Denies frequent falls, Denies weakness, Denies weight gain and Denies weight loss ENT Denies dizziness Card Denies chest pain, Denies leg edema, Denies lightheadedness, Denies palpitations, Denies dyspnea, Denies dyspnea on exertion, Denies orthopnea and Denies other (loss of consciousness) Resp Denies cough, Denies dyspnea and Denies dyspnea on exertion GI Denies hematochezia and Denies change in stool character Musc Denies abnormal gait, Denies muscle weakness, Denies numbness, Denies radiating pain into limb and Denies tingling Neuro Denies Abnormal speech present, Denies abnormal gait, Denies dizziness, Denies frequent falls, Denies numbness, Denies tingling and Denies weakness Endo Denies fatigue and Denies palpitations Physical Exam Vital Signs: Last Vital Signs Pulse 72 12/05/24 15:37 BP 142/78 H 12/05/24 15:37 BMI result Body Mass Index 28.3 Const General: comfortable, alert and awake Nutritional Appearance: other (Frail elderly woman) Limitations: ambulation with walker HEENT Other: Unremarkable Neck Neck: Yes trachea midline, Yes supple and No no JVD Chest Chest palpation & inspection: normal inspection of the chest Resp Effort & Inspection: normal respiratory effort Auscultation: clear to auscultation bilaterally, no crackles, no wheezes and diminished lung sounds Cardio Jugular venous distension: no JVD Palpation: normal PMI Rate: regular rate Rhythm: regular rhythm Heart sounds: S1 normal heart sound present, S2 normal heart sound present, no gallops, no murmurs and no rubs GI Palpation (GI): Soft to palpation Back/Spine/Pelvis Other: unremarkable Skin General skin exam: no rashes or lesions noted Neuro Cranial nerves: Yes Other cranial nerve findings present Speech: No Abnormal speech present Extrem General: No clubbing, No cyanosis and Yes edema ( Bilateral lymphedema, right greater than left) Psych Mental Status: other Office Procedures Cardiac Device Check Cardiac Device Check Details: Dual-chamber Medtronic pacemaker in place. Programmed in MVP mode with rate response with battery life is about 1 month. No episodes of atrial fibrillation noted. Atrial pacing 80% of the time. Ventricular pacing greater than 99% of the time. Atrial and ventricular sensing could not be checked. Atrial ventricular pacing thresholds adequate and reprogrammed to enhance battery life. Pacing lead impedance is stable. 48826-UV Cardiac Device Check, pacemaker dual lead Procedure code (CPT) selection complete Assessment & Plan Assessment & Plan (1) Heart failure with preserved ejection fraction: Code(s): I50.30 - Unspecified diastolic (congestive) heart failure Category: Medical Plan: Heart failure preserved ejection fraction with multiple comorbidities including advanced age, frailty, chronic kidney disease with worsening creatinine, paroxysmal atrial fibrillation suppressed as well as pacemaker. Patient clinically currently is looking euvolemic. Had run out of her diuretic regimen. Importance of not missing her diuretic drugs were discussed. Will prescribe her bumetanide given her predominantly right heart failure syndrome in the setting of chronic kidney disease. Discussed how to use bumetanide. Obtain blood work today and next week. Check magnesium today and next week. Have provided her with magnesium supplementation as well. Importance of electrolyte supplementation was discussed. Will hold off on potassium supplementation given that she is on spironolactone therapy till we obtain blood work results. Follow up in the clinic in a month's time. (2) Paroxysmal atrial fibrillation: Comment: Incidentally found on pacer therapy no treatment(patient has seen Cardiology) Code(s): I48.0 - Paroxysmal atrial fibrillation Category: Medical Plan: Paroxysmal atrial fibrillation currently suppressed on amiodarone therapy. Continue to pursue rhythm control approach. Continue check for amiodarone toxicity. Currently on Eliquis 5 mg b.i.d.. If she continues to have elevated creatinine will drop Eliquis dose to 2.5 mg b.i.d.. Will follow up after renal function test. Renal function needs to be closely followed. Avoidance of stimulants was discussed. (3) Cardiac pacemaker in situ: Comment: Medtronic dual-chamber pacemaker in place Code(s): Z95.0 - Presence of cardiac pacemaker Category: Medical Plan: Cardiac pacemaker in-situ for sick sinus syndrome. Pacemaker is coming close to replacement indicator. Will follow up in the clinic in 1 month's time. Follow up in the clinic in 1 month's time, sooner p.r.n.. Thank you for allowing me to partake in her care Orders: Orders Basic Metabolic Panel 1 Week I50.30 - Unspecified diastolic (congestive) heart failure B Type Natriuretic Peptide 1 Week I50.30 - Unspecified diastolic (congestive) heart failure Magnesium 1 Week I50.30 - Unspecified diastolic (congestive) heart failure B Type Natriuretic Peptide Today I50.30 - Unspecified diastolic (congestive) heart failure Basic Metabolic Panel Today I50.30 - Unspecified diastolic (congestive) heart failure Magnesium Today I50.30 - Unspecified diastolic (congestive) heart failure Medications: New 2 bumetanide Take additional 1 mg for CHF symptoms 2 mg (2 x 1 mg) PO DAILY 75 tabs 3RF I50.30 - Unspecified diastolic (congestive) heart failure magnesium oxide 400 mg PO DAILY 30 tabs 3RF I50.30 - Unspecified diastolic (congestive) heart failure Coding Level of Care Code Est Pt Level 4 (90913) Complex EM visit Add On G2211 Diagnoses Heart failure with preserved ejection fraction I50.30 Paroxysmal atrial fibrillation I48.0 Cardiac pacemaker in situ Z95.0 CPT Codes Cardiac Device Check - Cardiac Device 2: 22725-HR Cardiac Device Check, pacemaker dual lead ([id number])
== END 2024-12-05 15:59 | disposition home or self-care (01) ==
LOC: HO.HCS 15:32
PROVIDERS: PCP Internal Medicine; Visit Provider Internal Medicine Cardiovascular Disease
DX: I50.30 Unspecified diastolic (congestive) heart failure (principal); I48.0 Paroxysmal atrial fibrillation; Z95.0 Presence of cardiac pacemaker
CPT/HCPCS: 93280; 99214; G2211

== ENCOUNTER 2024-12-13 07:25 | Outpatient (AMB) | payer MEDICARE, SELFPAY ==
--- NOTE | 2024-12-13 07:27 | MHC.OFFVIS ---
Vital Signs 12/13/24 07:28 Height 5 ft 1 in Weight 145 lb 4 oz BMI 27.4 BP 138/72 Blood Pressure Location Rt brachial Position Sitting Pulse 71 Pulse Source Pulse Oximeter Pulse Oximetry (%) 96 Oxygen Delivery Method Room Air Intake Visit Reasons: INP- Other Amnesia Intake Note: Amnesia Button Grader Required: No Accompanied by: niece Allergies No Known Allergies (No Known Allergies*) Allergy (Verified 12/13/24 07:28) HPI Comments Details: 89y/o female comes for evaluation of memory issues. She is accompanied by her niece. The family noticed that she has been having short term memory issues are noticeable. she had some problems before but it worsened in the past 6 mths.she frequently repeats , forgets conversations. forgot she was in the hospitalized for 1 week recently etc. she lives alone and her sister arranges her pill box and reminds her to take meds.she still misses some doses. she has some confusions with ages of her grand children and has trouble with time.she gets melas on wheels but does not eat them and says he is not hungry. she is independent with her personal hygiene . No known history of head injury NO fh/o dementia PFSH Medical History Dementia Paroxysmal atrial fibrillation Acute diastolic (congestive) heart failure Persistent atrial fibrillation Multinodular goiter (nontoxic) Pedal edema Removal of staple Visit for suture removal Complicated urinary tract infection Dysphagia Screening for breast cancer Abnormal ultrasound of breast Abnormal mammogram of left breast Multiple falls Physical deconditioning Breast cancer, left Breast cancer Chronic renal insufficiency Cardiac pacemaker in situ AV block Leg edema Screening for diabetes mellitus On beta jake at home Arthritis Vertigo MARIELA (obstructive sleep apnea) Sick sinus syndrome Peripheral vascular disease Menieres disease Urinary bladder cancer Obesity Gout GERD (gastroesophageal reflux disease) Hypercholesterolemia Surgical History History of lumpectomy of left breast (03/10/23) History of esophagogastroduodenoscopy (EGD) S/P cardiac pacemaker procedure Hx of colonoscopy History of cystoscopy S/P MARION-BSO (total abdominal hysterectomy and bilateral salpingo-oophorectomy) History of cataract surgery History of knee replacement History of tonsillectomy History of appendectomy History of cholecystectomy Family History Father Stroke Mother Heart disease Social History Household Members: None Housing: Apartment Are you a primary managed care manager to a significant other at home: No Do you presently have visiting nurse or other home services: No Alcohol intake: never Comment: patient refusing alarms Patient Tobacco Use Status: Former Tobacco user Tobacco use type: Cigarette e-Cigarette/Vaping Use: Never Used Second Hand Smoke Exposure: No Advance Directives Date on File: 09/15/21 service: No Current occupational status: retired Cognitive needs: No Hearing needs: Yes Vision needs: Yes Physical Exam Vital Signs: Last Vital Signs Pulse 71 12/13/24 07:28 BP 138/72 12/13/24 07:28 Pulse Ox 96 12/13/24 07:28 Oxygen Delivery Method Room Air 12/13/24 07:28 BMI result Body Mass Index 27.4 Const General: cooperative, healthy appearing, comfortable and no acute distress Nutritional Appearance: average body habitus Orientation/consciousness: patient oriented x3 Neuro General: patient oriented x3, tone normal, moves all extremities and no focal motor deficits Cranial nerves: Yes Bilaterally intact EOM present, Yes Nystagmus not present, Yes Normal facial strength present, Yes Midline tongue present and Yes Ability to bilaterally elevate shoulders present Gait exam (Neuro): Antalgic gait present Motor exam (neuro): 5/5 motor strength present throughout and Normal motor muscle tone present throughout Deep tendon reflexes (DTR's): Right triceps reflex intensity grade: 1+, Left triceps reflex intensity grade: 1+, Rt Biceps (C5, C6): 1+, Left biceps reflex intensity grade: 1+, Right brachioradialis reflex intensity grade: 1+, Left brachioradialis reflex intensity grade: 1+, Right patellar reflex intensity grade: 1+ and Left patellar reflex intensity grade: 1+ Coordination: [id number] test normal Orientation What is the (year) (season) (date) (day) (month)?: year, season, date, day and month Where are we (state) (county) (town or city) (hospital) (floor)?: state, county, town or city, hospital/clinic and floor Registration Name of 3 unrelated objects clearly and slowly, then ask patient to repeat all 3 of them. (1st repeat determines score. Make sure they can repeat all three): object 1, object 2 and object 3 Attention & Calculation (CHOOSE ONE) Spell WORLD backwards (DLROW): 1 letter Recall Ask patient to repeat the 3 items from question #3.: object 1, object 2 and object 3 Language Show patient a wristwatch & ask what it is. Repeat for pencil.: watch and pencil Ask the patient to repeat the phrase 'No ifs, ands, or buts' after you.: correct Ask the patient to 'take a piece of paper with their right hand' 'fold paper in half' 'place paper on floor': take paper in right hand, fold paper in half and place paper on floor Print the sentence 'CLOSE YOUR EYES' on a piece. If patient actually closes eyes then score.: followed written direction Give patient a blank piece of paper & ask to write a sentence. Score if it contains a noun & verb.: sentence contains subject and verb Ask patient to copy figure of intersecting pentagons exactly. Score if all 10 angles & 2 intersects are included.: all 10 angles present & 2 are intersected Score Score: 26 Assessment & Plan Assessment & Plan (1) Dementia: Comment: Mixed Code(s): F03.90 - Unspecified dementia, unspecified severity, without behavioral disturbance, psychotic disturbance, mood disturbance, and anxiety Category: Medical Plan Reviewed labs and CT I will trial her on memantine XR 7 mg qd and titrate to 28 mg qd Increase social activity Patient will need assistanec with making decisions about her care and financial decisions. Medications: New memantine after 4 weeks on namenda 7 mg 14 mg PO DAILY 30 ea 0RF memantine 7 mg PO DAILY 30 ea 0RF Coding Level of Care Code New Pt Level 4 (21059) Diagnoses Dementia F03.90
[2024-12-13 07:28] VITALS: BP 138/72; PULSE 71; O2SAT 96; BMI 27.4
--- OUTSIDE RECORDS SUMMARY | 2024-12-13 07:28 | XMS_ITS ---
Author Organization [facility] Care Team Providers Care Fruit And Vegetable Packer Name Role Phone Harrison Hou Unavailable Unavailable Kell Smith Unavailable Unavailable Levheim Natacha Unavailable Unavailable Allergies and adverse reactions No Known Allergies Care Team Name Role Address Phone Organization Dates Harrison Hou PCP [address], [address], [place] (Office): : [facility] 03/29/2023 - 04/02/2023 Kell Smith [address], [address], [place] (Office): : [facility] 03/29/2023 - 04/02/2023 Natachasean Holloway [address], [address], [place] (Office): [facility] 03/29/2023 - 04/02/2023 Immunizations Immunization Status Vaccine Details Vaccine Code CodeSystem Date Notes Influenza completed Influenza, split virus, trivalent, injectable, contains preservative 141 CVX created date: 03/29/2023 administere d date: 01/12/2023 (COVID-19) [facility] Original Primary Dose Vaccine 2 of 2 completed SARS-COV-2 (COVID-19) vaccine, mRNA, spike protein, LNP, preservative free, 30 mcg/0.3mL dose 208 CVX created date: 03/29/2023 administere d date: 05/22/2020 (COVID-19) [facility] Original Primary Dose Vaccine 1 of 2 completed SARS-COV-2 (COVID-19) vaccine, mRNA, spike protein, LNP, preservative free, 30 mcg/0.3mL dose 208 CVX created date: 03/29/2023 administere d date: 05/01/2020 (COVID-19) [facility] Original Booster Vaccine completed SARS-COV-2 (COVID-19) vaccine, mRNA, spike protein, LNP, preservative free, 30 mcg/0.3mL dose 208 CVX created date: 03/29/2023 administere d date: 07/30/2021 (COVID-19) [facility] Original Booster Vaccine completed SARS-COV-2 (COVID-19) vaccine, mRNA, spike protein, LNP, preservative free, 30 mcg/0.3mL dose 208 CVX created date: 03/29/2023 consent date: 03/29/2023 administere d date: 02/04/2021 (COVID-19) [facility] Bivalent Vaccine completed SARS-COV-2 (COVID-19) vaccine, mRNA, spike protein, LNP, bivalent, preservative free, 30 mcg/0.3 mL dose, sanjiv-sucrose formulation 300 CVX created date: 03/29/2023 administere d date: 09/25/2022 (Tetanus, Diphtheria, and Acellular Pertussis) Tdap completed tetanus toxoid, reduced diphtheria toxoid, and acellular pertussis vaccine, adsorbed 115 CVX created date: 03/29/2023 administere d date: 01/08/2023 (Pneumococcal) PCV20- Conjugate 20-valent Vaccine completed Pneumococcal conjugate vaccine 20-valent (PCV20), polysaccharide [id number] conjugate, adjuvant, preservative free 216 CVX created date: 03/29/2023 administere d date: 02/15/2023 Mental Status Section Date Assessment Total Score Description 04/02/2023 BIMS 15 cognitively int act CAM 0 No delirium ind icated PHQ-9 00 03/31/2023 BIMS 15 cognitively int act CAM 0 No delirium ind icated PHQ-9 00 Problems Problem # Description Date of onset Resolved Date Code CodeSystem Concern Status 1 COVID-19 03/31/[address] active 2 CHRONIC KIDNEY DISEASE, STAGE 4 (SEVERE) 03/29/[address] active 3 ESSENTIAL (PRIMARY) HYPERTENSION 03/29/[address] active 4 GASTRO-ESOPHAGEAL REFLUX DISEASE WITHOUT ESOPHAGITIS 03/29/[address] active 5 HYPOKALEMIA 03/29/[address] active 6 MENIERE'S DISEASE, UNSPECIFIED EAR 03/29/[address] active 7 MUSCLE WASTING AND ATROPHY, NOT ELSEWHERE CLASSIFIED, MULTIPLE SITES 03/29/[address] active 8 OBSTRUCTIVE SLEEP APNEA (ADULT) (PEDIATRIC) 03/29/[address] active 9 OTHER LACK OF COORDINATION 03/29/[address] active 10 PERIPHERAL VASCULAR DISEASE, UNSPECIFIED 03/29/[address] active 11 PRESENCE OF CARDIAC PACEMAKER 03/29/[address] active 12 REPEATED FALLS 03/29/[address] ac tive 13 RHABDOMYOLYSIS 03/29/[address] ac tive 14 SICK SINUS SYNDROME 03/29/[address]23 [address] T active 15 TRAUMATIC ISCHEMIA OF MUSCLE, SUBSEQUENT ENCOUNTER 03/29/[address] active 16 UNSPECIFIED ABNORMALITIES OF GAIT AND MOBILITY 03/29/[address] active 17 UNSPECIFIED FALL, SUBSEQUENT ENCOUNTER 03/29/[address] active 18 UNSPECIFIED LACK OF COORDINATION 03/29/[address] active 19 VERTIGO OF CENTRAL ORIGIN 03/29/[address] active Reason for Referral No Reasons for Referral Entered Social History Social History Observation Description Start Date End Date Code Code System Current Smoking Status Tobacco smoking consumption unknown 809193593 SNOMED CT Sex Assigned At Female 1935 72567-6 [facility] Gender Identity Vital Signs Code Code System Vitals Name Values and Units Timing Information 92537-1 [facility] Pain Level Value=0.0 04/02/2023 9279-1 [facility] Respiratory Rate Value=16.0 Units=/m in 04/01/2023 8462-4 [facility] Blood Pressure-Diastolic Value=65 Un its=mmHg 04/01/2023 8480-6 [facility] Blood Pressure-Systolic Nqeka=694 Un its=mmHg 04/01/2023 8310-5 [facility] Body Temperature Value=98.6 Units= F 04/01/2023 8867-4 [facility] Heart rate Value=58.0 Units=/min 01742-9 [facility] O2 % BldC Oximetry Value=97.0 Units= % 04/01/2023 8302-2 [facility] Height Value=65.0 Units=Inches 03/29/2023 95402-3 [facility] Weight Hgbgg=626.0 Units=Lbs
== END 2024-12-13 08:28 | disposition home or self-care (01) ==
LOC: HO.HSMS 07:26
PROVIDERS: PCP Internal Medicine; Visit Provider Psychiatry & Neurology Neurology
DX: F03.90 Unspecified dementia, unspecified severity, without behavioral disturbance, psychotic disturbance, mood disturbance, and anxiety (principal)
CPT/HCPCS: 99204

== ENCOUNTER → 2024-12-13 07:25 | Outpatient (BNVA) | payer MEDICARE, SELFPAY | PROVIDERS: PCP Internal Medicine; Visit Provider Psychiatry & Neurology Neurology | DX: F03.90 Unspecified dementia, unspecified severity, without behavioral disturbance, psychotic disturbance, mood disturbance, and anxiety (principal) | CPT/HCPCS: 99202 ==

== ENCOUNTER 2025-01-04 10:51 | Outpatient (AMB) | payer MEDICARE, SELFPAY ==
--- NOTE | 2025-01-04 11:22 | A.OFFVIS_ITS ---
Intake Visit Reasons: cysto Intake Note: patient presents today for: cystoscopy urology medications: vit b12 blood thinners: eliquis Breakfast Manager Required: No Accompanied by: Sister Allergies No Known Allergies (No Known Allergies*) Allergy (Verified 01/04/25 11:23) HPI Comments Details: Gricelda is a pleasant female. She is a patient of Dr. Naik. She seen for the following urologic conditions - bladder cancer high-grade superficial Here for interval surveillance Bladder appears stable - submucosal changes but no new definitive areas of bladder cancer Last upper tract imaging 2019 Accompanied by sister Space surveillance to six-month Bladder cancer initial diagnosis February 2019 - last TURBT September 2021 high-grade Bladder cancer diagnosed TURBT December 2019 - high-grade noninvasive Further follow-up was postponed secondary to COVID Bladder procedures - December 2019 TURBT - June 2020 TURBT high-grade noninvasive - January 2021 TURBT high-grade noninvasive - 10/01 TURBT high-grade noninvasive - 08/03 TURBT low-grade multifocal Cystoscopy - 08/02 NAD, 03/04 NAD, 05/06 NAD Adjuvant therapy - June 2020 - induction gemcitabine, February 2021 repeat induction gemcitabine - Boost 01/01 gemcitabine, 05/04 gemcitabine, 10/02 gemcitabine , 08/03 induction with mitomycin-C and cytarabine Cytology - 01/01 NAD, 05/04 NAD, 05/06 NAD, 09/03 rare atypical cells PFSH Medical History Dementia Paroxysmal atrial fibrillation Acute diastolic (congestive) heart failure Persistent atrial fibrillation Multinodular goiter (nontoxic) Pedal edema Removal of staple Visit for suture removal Complicated urinary tract infection Dysphagia Screening for breast cancer Abnormal ultrasound of breast Abnormal mammogram of left breast Multiple falls Physical deconditioning Breast cancer, left Breast cancer Chronic renal insufficiency Cardiac pacemaker in situ AV block Leg edema Screening for diabetes mellitus On beta jake at home Arthritis Vertigo MARIELA (obstructive sleep apnea) Sick sinus syndrome Peripheral vascular disease Menieres disease Urinary bladder cancer Obesity Gout GERD (gastroesophageal reflux disease) Hypercholesterolemia Surgical History History of lumpectomy of left breast (03/10/23) History of esophagogastroduodenoscopy (EGD) S/P cardiac pacemaker procedure Hx of colonoscopy History of cystoscopy S/P MARION-BSO (total abdominal hysterectomy and bilateral salpingo-oophorectomy) History of cataract surgery History of knee replacement History of tonsillectomy History of appendectomy History of cholecystectomy Family History Father Stroke Mother Heart disease Social History Household Members: None Housing: Apartment Are you a primary critical care paramedic to a significant other at home: No Do you presently have visiting nurse or other home services: No Alcohol intake: never Comment: patient refusing alarms Patient Tobacco Use Status: Former Tobacco user Tobacco use type: Cigarette e-Cigarette/Vaping Use: Never Used Second Hand Smoke Exposure: No Advance Directives Date on File: 09/15/21 service: No Current occupational status: retired Cognitive needs: No Hearing needs: Yes Vision needs: Yes Review of Systems Const Denies chills and Denies fever(s) Card Reports no additional complaints and Denies syncope Resp Denies cough GI Denies abdominal pain and Denies heartburn Reports as per HPI and Denies change in libido Neuro Denies syncope Psych Denies change in libido Endo Denies change in libido Physical Exam Const General: cooperative, healthy appearing, comfortable and no acute distress Orientation/consciousness: patient oriented x3 HEENT Face and sinus: Yes normal facial exam Mouth: moist mucous membranes Neck Neck: Yes normal visual inspection, Yes full ROM and Yes trachea midline Chest Chest palpation & inspection: normal inspection of the chest Resp Effort & Inspection: normal respiratory effort, able to speak in complete sentences and no respiratory distress GI Inspection: Yes normal to inspection Back/Spine/Pelvis Cervical Spine: normal cervical lordosis Thoracic/Lumbar Spine: thoracic and lumbar spine normal to inspection Skin General skin exam: no rashes or lesions noted Neuro General: patient oriented x3, gait normal, tone normal and moves all extremities Extrem General: Yes normal to inspection and Yes capillary refill normal Office Procedures Cystoscopy Consent Discussed risk and benefit or proposed procedure with the patient. Information consent for procedure given to the patient. Discussed technical aspects, risks, benefits and alternatives in full. Addressed all of the patient's questions and concerns regarding the procedure. The patient demonstrated knowledge and understanding. They wish to proceed with this procedure. Preparation The patient was prepped in the usual manner. A payroll analyst was present and in the room. Genitalia was prepped with betadine solution in a sterile manner. Lidocaine Jelly 2% was placed into the urethra and 16Fr flexible Olympus cystos cope was inserted into the meatus after adequate lubrication. Procedure Meatus caruncle Urethra normal Bladder examination with retroflexion of cystoscope Bladder Orifices normal shape and position Trigone normal Bladder Capacity normal Trabeculations grade 1 Cellule Formation None Diverticulum Formation None Mucosal Erythema treatment effect erythema Bladder Tumor None [id number] DISPOSABLE SCOPE URO-G FLEXIBLE SCOPE Procedure code (CPT) selection complete Office Meds lidocaine HCl 2 % mucosal jelly in applicator Performing Provider: Francisco Dowell MD Performing Location: [facility] Administered by: Korey Pedro LPN on 01/04/25 11:49 Dose Route Admin Location Dispensed Lot Number Expiration Date [facility] Poundmaster 10 mL intra-urethral 10 mL nitrofurantoin monohydrate/macrocrystals 100 mg capsule Performing Provider: Francisco Dowell MD Performing Location: [facility] Administered by: Korey Pedro LPN on 01/04/25 11:49 Dose Route Admin Location Dispensed Lot Number Expiration Date [facility] Poundmaster 100 mg PO 1 cap phenazopyridine 200 mg tablet Performing Provider: Francisco Dowell MD Performing Location: [facility] Documented (not given) by: Korey Pedro LPN on 01/04/25 11:49 Reason Not Given: Not Medically Necessary Results AMB Urinalysis, Automated UA Leukoctes 500 Stephanie/uL Last Edit by KIKI Mercer on 01/04/25 13:19 UA Nitrite Last Edit by KIKI Mercer on 01/04/25 13:19 UA Urobilinogen 3.5 mg/dL Last Edit by KIKI Mercer on 01/04/25 13:1 9 UA Protein 1 mg/dL Last Edit by KIKI Mercer on 01/04/25 13:19 UA pH 6.0 Last Edit by KIKI Mercer on 01/04/25 13:19 UA Blood 10 Dc/uL Last Edit by KIKI Mercer on 01/04/25 13:19 UA Specific Egan 1.015 Last Edit by KIKI Mercer on 01/04/25 13: 19 UA Ketone Last Edit by KIKI Mercer on 01/04/25 13:19 UA Bilirubin 0 mg/dL Last Edit by KIKI Mercer on 01/04/25 13:19 UA Glucose 0 mg/dL Last Edit by KIKI Mercer on 01/04/25 13:19 Results Reviewed Results Reviewed: Laboratory Last Values Urine pH (Auto) 6.0 01/04/25 13:13 Specific Egan (Auto) 1.015 01/04/25 13:13 Urine Protein (Auto) 1 mg/dL 01/04/25 13:13 Glucose (UA)(Auto) 0 mg/dL 01/04/25 13:13 Urine Blood (Auto) 10 Dc/uL 01/04/25 13:13 Urine Bilirubin (Auto) 0 mg/dL 01/04/25 13:13 Urine Urobilinogen (Auto) 3.5 mg/dL 01/04/25 13:13 Leukocyte Esterase (Auto) 500 Stephanie/uL 01/04/25 13:13 Assessment & Plan Assessment & Plan (1) Urinary bladder cancer: Comment: TURBT superficial high-grade Dr. Meza TURBT Dr. 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, 06/30 HG Superficial September 2021 TURBT and gemcitabine installation Code(s): C67.9 - Malignant neoplasm of bladder, unspecified Category: Medical Qualifiers: Bladder location: unspecified site Qualified Code(s): C67.9 - Malignant neoplasm of bladder, unspecified Plan Six-month follow-up check cystoscopy Orders: Orders AMB Urinalysis Automated Today Z13.9 - Encounter for screening, unspecified AMB Cystoscopy Today C67.9 - Malignant neoplasm of bladder, unspecified Patient Instructions: This note is constructed using voice recognition software. While every effort has been made to ensure accuracy carriage operator errors may have been included. Imaging studies, laboratory and physical exam results were discussed and reviewed in detail. No major barriers to patient understanding were identified. An opportunity to ask questions regarding the treatment plan was provided. All questions were answered. The patient expressed understanding and agreement with the above treatment plan. The patient is aware they should contact our office by phone for worsening of their current condition or the appearance of new urologic symptoms. Compliance is encouraged with any medications and followup testing that is ordered. It is a privilege to participate in the urologic care of your patient. If you have any questions or concerns regarding treatment for the above conditions, or other urologic issues, please do not hesitate to contact me. The office telephone contact is [phone]. Sincerely, Dr Francisco Dowell MD, [facility] - Urology Compassionate Specialist Care for the Genitourinary System Coding Level of Care Code Procedure Only Diagnoses Malignant neoplasm of urinary bladder, unspecified site C67.9 Bladder location: unspecified site CPT Codes Cystoscopy - CPT: [id number] ([id number])
== END 2025-01-04 12:10 | disposition home or self-care (01) ==
LOC: HO.HUSH 10:51
PROVIDERS: PCP Internal Medicine; Visit Provider Urology
DX: C67.9 Malignant neoplasm of bladder, unspecified (principal); Z13.9 Encounter for screening, unspecified
CPT/HCPCS: 52000

== ENCOUNTER → 2025-01-04 10:51 | Outpatient (BNVA) | payer MEDICARE, SELFPAY | PROVIDERS: PCP Internal Medicine; Visit Provider Urology | DX: Z08 Encounter for follow-up examination after completed treatment for malignant neoplasm (principal); Z85.51 Personal history of malignant neoplasm of bladder; Z90.6 Acquired absence of other parts of urinary tract; Z87.891 Personal history of nicotine dependence; Z13.9 Encounter for screening, unspecified | CPT/HCPCS: 52000; 81003 ==

== ENCOUNTER 2025-01-15 12:15 | Outpatient (AMB) | payer MEDICARE, SELFPAY ==
[2025-01-15 12:29] VITALS: BP 116/60; PULSE 87; TEMP 36.1; O2SAT 97; BMI 28.5
--- NOTE | 2025-01-15 12:29 | AM.OFFVISMDC ---
Intake Vital Signs 01/15/25 12:29 Height 5 ft 1 in Weight 150 lb 12.739 oz BMI 28.5 BP 116/60 Blood Pressure Location Lt brachial Position Sitting Pulse 87 Pulse Source Pulse Oximeter Temp 97.0 F Temp Source Temporal Artery Scan Pulse Oximetry (%) 97 Oxygen Delivery Method Room Air Intake Visit Reasons: SWV Accompanied by: Sister Allergies No Known Allergies (No Known Allergies*) Allergy (Verified 01/15/25 12:33) Medication List - Last Reconciled 01/15/25 by Román Naik MD amiodarone 200 mg PO DAILY apixaban 2.5 mg PO BID bisacodyl 5 mg PO DAILY 2 days bumetanide 2 mg (2 x 1 mg) PO DAILY cholecalciferol (vitamin D3) 25 mcg PO DAILY coenzyme Q10 (Co Q-10) 100 mg PO DAILY cyanocobalamin (vitamin B-12) 1,000 mcg PO DAILY cyclosporine 0.05% (Restasis) 1 drp ophthalmic (eye) BID gabapentin 300 mg PO BEDTIME magnesium oxide 400 mg PO DAILY memantine 14 mg PO DAILY memantine 7 mg PO DAILY mineral oil (Fleet Mineral Oil enema) 118 mL MS DAILY PRN nystatin 1 appl topical DAILY omeprazole 20 mg PO DAILY@0630 simvastatin 20 mg PO BEDTIME spironolactone 25 mg See Protocol PO BID HPI SWV HPI Details [place] of care urology Dr. Dowell, neurology DrOliverio 3, cardi[place] [facility] [place] [facility] Dr. Schneider, surgery Dr. Correia, [facility] Dr. Arce/[facility] Medical History Dementia Paroxysmal atrial fibrillation Acute diastolic (congestive) heart failure Persistent atrial fibrillation Multinodular goiter (nontoxic) Pedal edema Removal of staple Visit for suture removal Complicated urinary tract infection Dysphagia Screening for breast cancer Abnormal ultrasound of breast Abnormal mammogram of left breast Multiple falls Physical deconditioning Breast cancer, left Breast cancer Chronic renal insufficiency Cardiac pacemaker in situ AV block Leg edema Screening for diabetes mellitus On beta jake at home Arthritis Vertigo MARIELA (obstructive sleep apnea) Sick sinus syndrome Peripheral vascular disease Menieres disease Urinary bladder cancer Obesity Gout GERD (gastroesophageal reflux disease) Hypercholesterolemia Surgical History History of lumpectomy of left breast (03/10/23) History of esophagogastroduodenoscopy (EGD) S/P cardiac pacemaker procedure Hx of colonoscopy History of cystoscopy S/P MARION-BSO (total abdominal hysterectomy and bilateral salpingo-oophorectomy) History of cataract surgery History of knee replacement History of tonsillectomy History of appendectomy History of cholecystectomy Family History Father Stroke Mother Heart disease Social History Household Members: None Housing: Apartment Are you a primary career services officer to a significant other at home: No Do you presently have visiting nurse or other home services: No Alcohol intake: never Comment: patient refusing alarms Patient Tobacco Use Status: Former Tobacco user Tobacco use type: Cigarette e-Cigarette/Vaping Use: Never Used Second Hand Smoke Exposure: No Advance Directives Date on File: 09/15/21 service: No Current occupational status: retired Cognitive needs: No Hearing needs: Yes Vision needs: Yes Questionnaire Medicare Wellness Checkup What is your age?: 81 or older What gender do you identify with?: female During the past 4 weeks, how much have you been bothered by emotional problems such as feeling anxious, depressed, irritable, sad or downhearted, and blue?: not at all During the past 4 weeks, has your physical & emotional health limited your social activities with family, friends, neighbors, or groups?: not at all During the past 4 weeks, how much bodily pain have you generally had?: no pain During the past 4 weeks, was someone available to help you if you needed & wanted help?: yes, as much as I wanted During the past 4 weeks, what was the hardest physical activity you could do for at least 2 minutes?: moderate Can you get to places out of walking distance without help? (For eg., can you travel alone on buses, taxis or drive your car?): Yes Can you go shopping for groceries or clothes without someone's help?: Yes Can you prepare your own meals?: Yes Can you do your housework without help?: Yes Because of any health problems, do you need the help of another person with your personal care needs such as eating, bathing, dressing or getting around the house?: No Can you handle your own money without help?: Yes During the past 4 weeks, how would you rate your health in general?: very good During the past 4 weeks how have things been going for you?: pretty well Are you having difficulties driving your car?: no Do you always fasten your seat belt when you are in a car?: yes, usually During past 4 weeks, have you been bothered by the following: never: Falling or dizzy when standing up, Sexual problems?, Trouble eating well?, Teeth or denture problems?, Problems using the telephone? and Tiredness or fatigue? Have you fallen 2 or more times in the past year?: No Are you afraid of falling?: Yes Are you a smoker?: no During the past 4 weeks, how many drinks of wine, beer, or other alcoholic beverages did you have?: no alcohol at all Do you exercise for about 20 minutes 3 or more times a week?: no, I usually do not exercise this much Have you been given information to help with the following?: no: Hazards in your house that might hurt you? and no: Keeping track of your medications? How often do you have trouble taking medicines the way you have been told to take them?: I always take medicine as prescribed How confident are you that you can control & manage most of your health problems?: very confident What is your race?: White PHQ-9 Over the last 2 weeks, how often have you been bothered by any of the following problems? 1. Little interest or pleasure in doing things: not at all 2. Feeling down, depressed, or hopeless: not at all 3. Trouble falling or staying asleep, or sleeping too much: not at all 4. Feeling tired or having little energy: not at all 5. Poor appetite or overeating: not at all 6. Feeling bad about yourself - or that you are a failure or have let yourself or your family down: not at all 7. Trouble concentrating on things, such as reading the newspaper or watching television: not at all 8. Moving or speaking so slowly that other people could have noticed. Or the opposite - being so fidgety or restless that you have been moving around a lot more than usual: not at all 9. Thoughts that you would be better off or of hurting yourself in some way: not at all Total score: 0 Depression Screening Interpretation: Negative Depression Screening Done: Yes 29829 - PHQ-9 Billing: Yes Source: Developed by Drs. Wilver Hightower, Tanya Bardales, Thomas Perry and colleagues, with an educational mike from [employer]. Review of Systems Const Denies poor appetite and Denies weakness Eyes Denies no additional complaints ENT Reports Normal hearing present, Denies dizziness, Denies nasal congestion, Denies tinnitus and Denies sore throat Card Denies chest pain, Denies syncope, Denies rapid heart rate and Denies dyspnea Resp Denies cough and Denies dyspnea GI Denies change in stool character, Reports constipation, Denies diarrhea, Denies nausea and Denies vomiting Denies urinary frequency, Denies difficulty voiding and Denies dysuria Neuro Reports Normal hearing present, Denies confusion, Denies dizziness, Denies syncope and Denies weakness Psych Denies confusion Physical Exam Vital Signs: Last Vital Signs Temp 97.0 F 01/15/25 12:29 Pulse 87 01/15/25 12:29 BP 116/60 01/15/25 12:29 Pulse Ox 97 01/15/25 12:29 Oxygen Delivery Method Room Air 01/15/25 12:29 BMI result Body Mass Index 28.5 Const General: alert and awake; No confusion Orientation/consciousness: No confusion HEENT Head: Yes normocephalic Ears: external ears normal and TM's normal bilaterally Face and sinus: Yes normal facial exam Mouth: moist mucous membranes Throat: Yes tonsils normal Eyes Conjunctivae: conjunctivae normal Pupils: Equal, round and reactive pupils present and Pupil accommodation reflex normal Direct Ophthalmoscopy: normal light reflex Neck Neck: No lymphadenopathy Thyroid: Thyroid normal Chest Chest palpation & inspection: normal inspection of the chest Resp Effort & Inspection: normal respiratory effort and no audible wheezes Auscultation: clear to auscultation bilaterally, no crackles, no wheezes and lung sounds not diminished Cardio Rate: regular rate Rhythm: regular rhythm Peripheral pulses: radial pulses present and dorsalis pedis present GI Palpation (GI): no masses Auscultation: normal bowel sounds and normoactive bowel sounds Rectal Exam - Female: deferred Skin General skin exam: no rashes or lesions noted Rashes: no rashes Neuro General: deep tendon reflexes 2+ bilaterally and No confusion Cranial nerves: Yes Equal, round and reactive pupils present, Yes Midline tongue present, Yes Normal hearing present and Yes Ability to bilaterally elevate shoulders present Cognition (Neuro): normal cognition Gait exam (Neuro): Normal gait present Motor exam (neuro): 5/5 motor strength present throughout Deep tendon reflexes (DTR's): Right brachioradialis reflex intensity grade: 2+, Left brachioradialis reflex intensity grade: 2+, Right patellar reflex intensity grade: 2+ and Left patellar reflex intensity grade: 2+ Extrem General: No edema Assessment & Plan Assessment & Plan (1) Medicare annual wellness visit, subsequent: Code(s): Z00.00 - Encounter for general adult medical examination without abnormal findings Plan: Patient is advised to eat healthy, keep well hydrated, keep active and have adequate sleep. (2) Essential hypertension: Code(s): I10 - Essential (primary) hypertension Plan: Continue with blood pressure medication. Decrease salt intake and exercise patient is on spironolactone 25 mg twice a day (3) Heart failure with preserved ejection fraction: Code(s): I50.30 - Unspecified diastolic (congestive) heart failure Plan: Weigh daily placed on bumetanide + spironolactone (4) Paroxysmal atrial fibrillation: Comment: Incidentally found on pacer therapy no treatment(patient has seen Cardiology) Code(s): I48.0 - Paroxysmal atrial fibrillation Plan: On amiodarone and anticoagulation with Eliquis with Eliquis decreased in dose due to renal function (5) Cardiac pacemaker in situ: Comment: Medtronic dual-chamber pacemaker in place Code(s): Z95.0 - Presence of cardiac pacemaker Plan: Continue to follow up with Cardiology (6) Hypercholesterolemia: Code(s): E78.00 - Pure hypercholesterolemia, unspecified Plan: Avoid fried foods, chicken skin, eggs, butter margarine, pastries and meat. Be it pork or beef they have a lot of cholesterol LDL goal of less than 70 and triglyceride of less than 150 on simvastatin 20 mg at bedtime (7) Impaired fasting blood sugar: Code(s): R73.01 - Impaired fasting glucose Plan: Decrease the amount of carbohydrate intake, pasta, bread, rice and potatoes are all sugar and that is aside from all the sweet stuff, remember that fruits are good but they are Sweet also. (8) Thyroid nodule: Comment: May 2024 There is a right lower pole 2.7 cm TR category 3 nodule. FNA advised. 2. There is a right upper pole 1.0 cm TR category 4 nodule. Recommend follow-up as per below. 3. There is a 0.8 cm right mid pole TR category 3 nodule. No follow-up recommended. 4. The surrounding thyroid parenchyma is normal. Code(s): E04.1 - Nontoxic single thyroid nodule Plan: Patient is being followed up by Endocrinology. Limited utilization on biopsies. (9) GERD (gastroesophageal reflux disease): Code(s): K21.9 - Gastro-esophageal reflux disease without esophagitis Qualifiers: Esophagitis presence: without esophagitis Qualified Code(s): K21.9 - Gastro-esophageal reflux disease without esophagitis Plan: Avoid the foods that causes that usually spicy foods, tomato products, juices, coffee, soda and foods that your sensitive to. After eating do not lie down, allow 3-4 hours before in lie down. And keep the head of bed above 30 degrees to avoid the acid from going up. (10) Invasive ductal carcinoma of left breast: Comment: Left breast lumpectomy February 2023 Code(s): C50.912 - Malignant neoplasm of unspecified site of left female breast Plan: Continue to have the mammogram as well as follow-up with the surgeon and Hematology-Oncology (11) Urinary bladder cancer: Comment: TURBT superficial high-grade Dr. Meza TURBT Dr. 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, 06/30 HG Superficial September 2021 TURBT and gemcitabine installation Code(s): C67.9 - Malignant neoplasm of bladder, unspecified Qualifiers: Bladder location: unspecified site Qualified Code(s): C67.9 - Malignant neoplasm of bladder, unspecified Plan: Patient continue surveillance under urology (12) Dementia: Comment: Mixed Code(s): F03.90 - Unspecified dementia, unspecified severity, without behavioral disturbance, psychotic disturbance, mood disturbance, and anxiety Plan: Supportive treatment and has been started on memantine Plan History of Present Illness The patient is an 89-year-old female presenting for an annual wellness visit and management of multiple chronic conditions. The patient has a history of hypercholesterolemia, managed with simvastatin, and her cholesterol levels are within the desired range. She has a history of gout and gastroesophageal reflux disease, the latter managed with omeprazole. The patient was diagnosed with urinary bladder cancer in 2019 and is under regular surveillance by urology. She also has a history of left breast cancer, status post lumpectomy, with ongoing follow-up care. Her cardiovascular history includes peripheral vascular disease, atrioventricular block with a pacemaker, congestive heart failure, and atrial fibrillation. Her anticoagulation therapy with Eliquis was adjusted due to renal function concerns. The patient has impaired glucose tolerance and hypertension, and she is diagnosed with dementia, managed with Memantine. She has a multinodular goiter under endocrinology care, with no current surgical intervention planned. The patient experiences constipation, managed with mineral oil and advised hydration. 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 Health Maintenance - Cardiovascular: Regular follow-up with cardiology for pacemaker check and heart failure management - Oncology: Follow-up with urology for bladder cancer surveillance and with surgery for breast cancer management - Neurology: Follow-up for dementia management with Memantine titration - Endocrinology: Monitoring of multinodular goiter, no surgical intervention planned - Vaccinations: Up-to-date with flu, pneumonia, and COVID-19 vaccinations Social History - Living Situation: Patient lives independently but requires assistance with medication management. - Nutrition: Drinks tea regularly, advised to increase water intake. Review of Systems - General: Denies fever, nausea, or vomiting. - Cardiovascular: Denies chest pain, reports regular follow-up for heart conditions. - Respiratory: Denies dyspnea or cough. - Gastrointestinal: Reports constipation, denies difficulty swallowing with small food portions. - Neurological: Denies dizziness, reports visual impairment. Physical Exam General: Cooperative, healthy appearing, comfortable, no acute distress and well developed Orientation: Patient oriented x3 Limitations: No limitations Head: Normal to inspection Ears: Hearing difficulties noted Nose: Normal external nose present Face and sinus: Normal facial exam Eyes: Legally blind in one eye, referred to blind services Neck: Normal visual inspection and Yes full ROM Respiratory: Normal respiratory effort and able to speak in complete sentences. Clear to auscultation bilaterally Cardiovascular: Regular rate and rhythm. Normal S1 and S2 GI: Normal to inspection. Soft to palpation and nontender Skin: No rashes or lesions noted Neuro: Patient oriented x3 Extremities: Swelling noted, advised to increase movement and exercise Results - Labs: Total cholesterol 129 mg/dL, potassium 5.6 mmol/L, creatinine 1.6 mg/dL, GFR 30 mL/min/1.73 m?. - Imaging: Chest X-ray performed in July, no new imaging required at this time. Plan Patient was informed and verbally consented to the use of an ambient scribe for clinic note documentation during this visit. 1. Hypercholesterolemia The patient's hypercholesterolemia is managed with simvastatin 20 mg at bedtime, and her cholesterol levels are within the desired range. 2. Gout The patient has a history of gout, which is monitored for flare-ups and managed as needed. 3. Gastroesophageal Reflux Disease (Gerd) GERD is managed with omeprazole, and the patient is advised to continue this medication. 4. Urinary Bladder Cancer The patient is under regular surveillance with urology, including cystoscopies, for urinary bladder cancer. 5. Left Breast Cancer The patient is status post lumpectomy for left breast cancer and continues follow-up with her surgeon. 6. Peripheral Vascular Disease The patient has peripheral vascular disease, which is monitored as part of her cardiovascular care. 7. Atrioventricular Block With Pacemaker The patient has an atrioventricular block managed with a pacemaker, with regular follow-up in cardiology. 8. Congestive Heart Failure The patient has congestive heart failure with preserved ejection fraction, managed with bumetanide and spironolactone. 9. Atrial Fibrillation Atrial fibrillation is managed with amiodarone and anticoagulation therapy, with Eliquis dose adjusted due to renal function. 10. Dementia The patient is under neurology care for dementia, with Memantine titration to 28 mg once a week. 11. Multinodular Goiter The patient has a multinodular goiter under endocrinology care, with no surgical intervention planned. 12. Constipation Constipation is managed with mineral oil and advised hydration to improve bowel movements. 13. Visual Impairment The patient is legally blind in one eye and is under ophthalmology care for visual impairment. Discussion Notes During the visit, we discussed the management of the patient's chronic conditions, including adjustments to her anticoagulation therapy due to renal function. We reviewed her medication regimen, emphasizing the importance of adherence and regular follow-ups with her specialists. We also addressed her constipation management and the need for adequate hydration. The patient was advised to continue her current medications and follow up with her healthcare providers as scheduled. Patient Instructions - Continue taking all prescribed medications as directed. - Follow up with cardiology, urology, neurology, endocrinology, and surgery as scheduled. - Maintain adequate hydration to help manage constipation. - Monitor for any new symptoms and report them to your healthcare provider. - Ensure regular blood work is completed as advised. Orders: Orders Lipid Panel 2 Months E78.00 - Pure hypercholesterolemia, unspecified, I48.0 - Paroxysmal atrial fibrillation Vitamin D 25-OH Total 2 Months I48.0 - Paroxysmal atrial fibrillation NT Pro B Type Natriuretic Pept 2 Months I48.0 - Paroxysmal atrial fibrillation Complete Blood Count Auto Diff 2 Months I48.0 - Paroxysmal atrial fibrillation Comprehensive Met. Panel 2 Months I48.0 - Paroxysmal atrial fibrillation Free T4 (Free Thyroxine) 2 Months I48.0 - Paroxysmal atrial fibrillation Hemoglobin A1c 2 Months I48.0 - Paroxysmal atrial fibrillation Thyroid Stimulating Hormone 2 Months I48.0 - Paroxysmal atrial fibrillation Vitamin B12 and Folate 2 Months I48.0 - Paroxysmal atrial fibrillation UA w Microscopic 2 Months I48.0 - Paroxysmal atrial fibrillation Magnesium 2 Months I48.0 - Paroxysmal atrial fibrillation Medications: Changed From apixaban (Eliquis) 5 mg PO BID 180 tabs 3RF To apixaban 2.5 mg PO BID 60 tabs 3RF Quality Reporting (2020) Depression/Bipolar (159/160/161/177) PHQ-9: Total score: 0 Coding Level of Care Code Medicare Subsequent (G0439) Diagnoses Medicare annual wellness visit, subsequent Z00.00 Essential hypertension I10 Heart failure with preserved ejection fraction I50.30 Paroxysmal atrial fibrillation I48.0 Cardiac pacemaker in situ Z95.0 Hypercholesterolemia E78.00 Impaired fasting blood sugar R73.01 Thyroid nodule E04.1 Gastroesophageal reflux disease without esophagitis K21.9 Esophagitis presence: without esophagitis Invasive ductal carcinoma of left breast C50.912 Malignant neoplasm of urinary bladder, unspecified site C67.9 Bladder location: unspecified site Dementia F03.90 Additional Codes PHQ-9 - 98761 - PHQ-9 Billing: Yes ([id number])
== END 2025-01-15 13:13 | disposition home or self-care (01) ==
LOC: HO.HMCH 12:15
PROVIDERS: PCP Internal Medicine; Visit Provider Internal Medicine
DX: Z00.00 Encounter for general adult medical examination without abnormal findings (principal); I50.30 Unspecified diastolic (congestive) heart failure; I48.0 Paroxysmal atrial fibrillation; C50.912 Malignant neoplasm of unspecified site of left female breast; C67.9 Malignant neoplasm of bladder, unspecified; I10 Essential (primary) hypertension; Z95.0 Presence of cardiac pacemaker; F03.90 Unspecified dementia, unspecified severity, without behavioral disturbance, psychotic disturbance, mood disturbance, and anxiety; E78.00 Pure hypercholesterolemia, unspecified; R73.01 Impaired fasting glucose; E04.1 Nontoxic single thyroid nodule; K21.9 Gastro-esophageal reflux disease without esophagitis

== ENCOUNTER → 2025-01-15 12:15 | Outpatient (BNVA) | payer MEDICARE, SELFPAY | PROVIDERS: PCP Internal Medicine; Visit Provider Internal Medicine | DX: Z00.00 Encounter for general adult medical examination without abnormal findings (principal); I11.0 Hypertensive heart disease with heart failure; I50.30 Unspecified diastolic (congestive) heart failure; I48.0 Paroxysmal atrial fibrillation; E78.00 Pure hypercholesterolemia, unspecified; R73.01 Impaired fasting glucose; E04.1 Nontoxic single thyroid nodule; K21.9 Gastro-esophageal reflux disease without esophagitis; C50.912 Malignant neoplasm of unspecified site of left female breast; C67.9 Malignant neoplasm of bladder, unspecified; F03.90 Unspecified dementia, unspecified severity, without behavioral disturbance, psychotic disturbance, mood disturbance, and anxiety; M10.9 Gout, unspecified; I73.9 Peripheral vascular disease, unspecified; E04.2 Nontoxic multinodular goiter; K59.00 Constipation, unspecified; Z95.0 Presence of cardiac pacemaker | CPT/HCPCS: 96127 ==

== ENCOUNTER 2025-01-23 14:57 | Outpatient (AMB) | payer MEDICARE, SELFPAY ==
[2025-01-23 15:15] VITALS: BP 110/70; PULSE 71; BMI 28.3
--- NOTE | 2025-01-23 15:15 | MHC.OFFVIS ---
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 Tender Starch Spraying Required: No Clinical Exercise Specialist: Clinical Exercise Specialist Present Accompanied by: Friend Allergies No Known Allergies (No Known Allergies*) Allergy (Verified 01/15/25 12:33) Medication List - Last Reconciled 01/23/25 by Facundo Solis MD amiodarone 200 mg PO DAILY apixaban 2.5 mg PO BID bisacodyl 5 mg PO DAILY 2 days bumetanide 2 mg (2 x 1 mg) PO DAILY cholecalciferol (vitamin D3) 25 mcg PO DAILY coenzyme Q10 (Co Q-10) 100 mg PO DAILY cyanocobalamin (vitamin B-12) 1,000 mcg PO DAILY cyclosporine 0.05% (Restasis) 1 drp ophthalmic (eye) BID gabapentin 300 mg PO BEDTIME magnesium oxide 400 mg PO DAILY memantine 14 mg PO DAILY memantine 7 mg PO DAILY mineral oil (Fleet Mineral Oil enema) 118 mL LA DAILY PRN nystatin 1 appl topical DAILY omeprazole 20 mg PO DAILY@0630 simvastatin 20 mg PO BEDTIME spironolactone 25 mg See Protocol PO BID HPI Comments Details: Gricelda comes for follow-up. No new symptoms. Her pacer today shows TONI reached yesterday. Patient has no symptoms. Denies any prolonged palpitation irregular heartbeat. Tolerating her increase amiodarone now. No heart failure symptoms. No bleeding issues or neurologic events. [facility] Medical History Dementia Paroxysmal atrial fibrillation Acute diastolic (congestive) heart failure Persistent atrial fibrillation Multinodular goiter (nontoxic) Pedal edema Removal of staple Visit for suture removal Complicated urinary tract infection Dysphagia Screening for breast cancer Abnormal ultrasound of breast Abnormal mammogram of left breast Multiple falls Physical deconditioning Breast cancer, left Breast cancer Chronic renal insufficiency Cardiac pacemaker in situ AV block Leg edema Screening for diabetes mellitus On beta jake at home Arthritis Vertigo MARIELA (obstructive sleep apnea) Sick sinus syndrome Peripheral vascular disease Menieres disease Urinary bladder cancer Obesity Gout GERD (gastroesophageal reflux disease) Hypercholesterolemia Surgical History History of lumpectomy of left breast (03/10/23) History of esophagogastroduodenoscopy (EGD) S/P cardiac pacemaker procedure Hx of colonoscopy History of cystoscopy S/P MARION-BSO (total abdominal hysterectomy and bilateral salpingo-oophorectomy) History of cataract surgery History of knee replacement History of tonsillectomy History of appendectomy History of cholecystectomy Family History Father Stroke Mother Heart disease Social History Household Members: None Housing: Apartment Are you a primary resident care associate to a significant other at home: No Do you presently have visiting nurse or other home services: No Alcohol intake: never Comment: patient refusing alarms Patient Tobacco Use Status: Former Tobacco user Tobacco use type: Cigarette e-Cigarette/Vaping Use: Never Used Second Hand Smoke Exposure: No Advance Directives Date on File: 09/15/21 service: No Current occupational status: retired Cognitive needs: No Hearing needs: Yes Vision needs: Yes Review of Systems Const Denies chills, Denies fatigue, Denies fever(s), Denies frequent falls, Denies weakness, Denies weight gain and Denies weight loss ENT Denies dizziness Card Denies chest pain, Denies leg edema, Denies lightheadedness, Denies palpitations, Denies dyspnea, Denies dyspnea on exertion, Denies orthopnea and Denies other (loss of consciousness) Resp Denies cough, Denies dyspnea and Denies dyspnea on exertion GI Denies hematochezia and Denies change in stool character Musc Denies abnormal gait, Denies muscle weakness, Denies numbness, Denies radiating pain into limb and Denies tingling Neuro Denies Abnormal speech present, Denies abnormal gait, Denies dizziness, Denies frequent falls, Denies numbness, Denies tingling and Denies weakness Endo Denies fatigue and Denies palpitations Physical Exam Vital Signs: Last Vital Signs Pulse 71 01/23/25 15:15 BP 110/70 01/23/25 15:15 BMI result Body Mass Index 28.3 Const General: comfortable, alert and awake Nutritional Appearance: other (Frail elderly woman) Limitations: ambulation with walker HEENT Other: Unremarkable Neck Neck: Yes trachea midline, Yes supple and No no JVD Chest Chest palpation & inspection: normal inspection of the chest Resp Effort & Inspection: normal respiratory effort Auscultation: clear to auscultation bilaterally, no crackles, no wheezes and diminished lung sounds Cardio Jugular venous distension: no JVD Palpation: normal PMI Rate: regular rate Rhythm: regular rhythm Heart sounds: S1 normal heart sound present, S2 normal heart sound present, no gallops, no murmurs and no rubs GI Palpation (GI): Soft to palpation Back/Spine/Pelvis Other: unremarkable Skin General skin exam: no rashes or lesions noted Neuro Cranial nerves: Yes Other cranial nerve findings present Speech: No Abnormal speech present Extrem General: No clubbing, No cyanosis and Yes edema ( Bilateral lymphedema, right greater than left) Psych Mental Status: other Office Procedures Cardiac Device Check Cardiac Device Check Details: Dual-chamber Medtronic pacemaker which has reached BRAZING FURNACE OPERATOR yesterday. No episodes of atrial fibrillation noted which was sustained. Ventricular pacing 100% of the time. Atrial and ventricular pacing thresholds adequate. Pacing lead impedance is stable. [id number] Cardiac Device Check, pacemaker dual lead Procedure code (CPT) selection complete EKG Details: EKGs shows AV dual paced rhythm 29861-[id number], Complete Assessment & Plan Assessment & Plan (1) Heart failure with preserved ejection fraction: Code(s): I50.30 - Unspecified diastolic (congestive) heart failure Category: Medical Plan: Heart failure preserved ejection fraction, clinically euvolemic and well compensated current diuretic therapy as well as with rhythm control approach. Continue pursue rhythm control approach. Continue current diuretic regimen. Heart failure management was discussed. Daily weight monitoring avoidance salt loading was discussed. Continue aggressive blood pressure control. She is very well optimized at this point time. (2) Cardiac pacemaker in situ: Comment: Medtronic dual-chamber pacemaker in place Code(s): Z95.0 - Presence of cardiac pacemaker Category: Medical Plan: Cardiac pacemaker in-situ which has reached BRAZING FURNACE OPERATOR. Patient's ventricularly pacer dependent. Will discuss with EP to pursue pulse generator change. Patient is agreeable. Risk and benefits were discussed. Will see her in follow-up after pulse generator change. (3) Paroxysmal atrial fibrillation: Comment: Incidentally found on pacer therapy no treatment(patient has seen Cardiology) Code(s): I48.0 - Paroxysmal atrial fibrillation Category: Medical Plan: Paroxysmal atrial fibrillation now suppressed on higher dose of amiodarone doing well from heart failure perspective. Continue amiodarone. Currently on lower dose of apixaban based on her age and renal function. Continue the same. Continue avoidance of stimulants. Will follow up in the clinic in 4 weeks, 10 days after pulse generator change. Coding Level of Care Code Est Pt Level 4 (56823) Complex EM visit Add On G2211 Diagnoses Heart failure with preserved ejection fraction I50.30 Cardiac pacemaker in situ Z95.0 Paroxysmal atrial fibrillation I48.0 CPT Codes Cardiac Device Check - Cardiac Device 2: [id number] Cardiac Device Check, pacemaker dual lead ([id number]) EKG - CPT: 04503-[id number], Complete ([id number])
--- OUTSIDE RECORDS SUMMARY | 2025-03-15 20:00 | XMS_ITS | Clinical Summary ---
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 Active 2024-04 006 00:00: 00 Allergies, Adverse Reactions, Alerts Allergy Name Allergy Type Status Severity Reaction(s) Onset Date Inactive Date Treating Clinician Comments NKA Propensity to adverse reactions Active 2025-01 11:44:4 6 Immunizations Ordered Immunization Name Filled Immunization Name Date Status Comments Refusal Reason INFLUENZA, TIV (INACTIVATED) 2024-12-15 00:00:00 Vital Signs Vital Name Observation Time Observation Value Commen ts Temperature 2025-01-23 09:25:00.000 99 [degF] Temperature 2025-01-16 11:31:00.000 99 [degF] BMI (%) 2025-01-16 11:31:00.000 28 kg/m2 Height 2025-01-16 11:31:00.000 61 [in_us] Pulse 2025-01-23 09:25:00.000 68 /min Pulse 2025-01-16 11:31:00.000 60 /min Respirations 2025-01-23 09:25:00.000 18 /min Respirations 2025-01-16 11:31:00.000 18 /min Weight (lbs) 2025-01-16 11:31:00.000 150 [lb_av] Systolic Blood Pressure 2025-01-23 09:25:00.000 124 mm [Hg] Systolic Blood Pressure 2025-01-16 11:31:00.000 104 mm [Hg] Diastolic Blood Pressure 2025-01-23 09:25:00.000 [...] NOTIFY AGENCY OR PHYSICIAN/PROVIDER OF ANY CONCERNS.] Future Scheduled Test PATIENT OVALLE S A [...] MAINTAIN SITUATIONAL AWARENESS AND WILL NOTIFY CLINICAL PRESIDENT AND CMO AND PHYSICIAN/PROVIDER WITH ANY CHANGE IN CONDITION. [code = SKILLED NURSE TO PERFORM ENVIRONMENTAL SAFETY RISK ASSESSMENT AND FALL RISK ASSESSMENT AND PROVIDE INSTRUCTION TO IMPLEMENT ENVIRONMENTAL SAFETY AND FALL PREVENTION STRATEGIES THROUGHOUT THE CERTIFICATION PERIOD. SKILLED NURSE WILL MAINTAIN SITUATIONAL AWARENESS AND WILL NOTIFY CLINICAL PRESIDENT AND CMO AND PHYSICIAN/PROVIDER WITH ANY CHANGE IN CONDITION.] [...] CARE.] Future Scheduled Test SKILLED NU RSE TO INSTRUCT PATIENT/CAREGIVER ON SIGNS AND SYMPTOMS, RISK FACTORS, COMPLICATIONS, AND MANAGEMENT OF ATRIAL FIBRILLATION. [code = SKILLED NURSE TO INSTRUCT PATIENT/CAREGIVER ON SIGNS AND SYMPTOMS, RISK FACTORS, COMPLICATIONS, AND MANAGEMENT OF ATRIAL FIBRILLATION.] Future Scheduled Test SKILLED NU RSE FOR [...] STATUS.] Future Scheduled Test SKILLED NU RSE TO PREFILL MEDIPLANNER AND INSTRUCT PATIENT/CAREGIVER ON FILLING MEDIPLANNER DEVICE WEEKLY [code = SKILLED NURSE TO PREFILL MEDIPLANNER AND INSTRUCT PATIENT/CAREGIVER ON FILLING MEDIPLANNER DEVICE WEEKLY] Future Scheduled Test SKILLED NU RSE FOR O/A AND SKILLED TEACHING IN MANAGEMENT OF LYMPHEDEMA CIRCULATORY/VASCULAR DISEASE. [code = SKILLED NURSE FOR O/A AND SKILLED TEACHING IN MANAGEMENT OF LYMPHEDEMA CIRCULATORY/VASCULAR DISEASE.] Goal Patient Goal - STAY HOME Goal Provider Goal - A PLAN OF CARE WILL BE ESTABLISHED THAT MEETS PATIENT'S SHELTER NEEDS AND INCLUDES PATIENT GOAL FOR HOME HEALTH. Goal Provider Goal - PATIENT/CAREGIVER WILL VERBALIZE UNDERSTANDING OF EDUCATION PROVIDED ON MEDICATIONS BY THE END OF THE CERTIFICATION PERIOD. Goal Provider Goal - PATIENT WILL HAVE [...] OF THE EPISODE. Goal Provider Goal - PATIENT / [...] FOR EARLY INTERVENTION THROUGHOUT THE CERTIFICATION PERIOD. Progress Notes Progress Notes <paragraph>[Visit Date: 2024 by MANNY FOLEY LPN]:</paragraph><paragraph>SNV 01/23</paragraph><paragraph></paragraph><paragraph>ABNORMAL VITALS: WITHIN PTS ESTABLISHED PARAMETERS </paragraph><paragraph></paragraph><paragraph>FALLS: N </paragraph><paragraph></paragraph><paragraph>MEDICATION CHANGES: N</paragraph><paragraph></paragraph><paragraph>OBSERVATION AND ASSESSMENT PROVIDED: PATIENT IS ALERT AND ORIENTED X3, FORGETFUL, BUT PLEASANT AND COOPERATIVE DURING VISIT. PT DENIES ANY NEW OR WORSENING SYMPTOMS. VSS, LSCTA, TEMP 99 BUT APARTMENT WAS QUITE WARM, DENIES PAIN, ABD SOFT NONTENDER, +BSX4, NO PAIN OR BURNING WITH URINATION, LBM 2 DAYS AGO. PT EATS DRIED PRUNES AND PRUNE JUICE BUT ADMITS NOT DRINKING ENOUGH WATER. MEDIPLANNER WAS PREFILLED FOR THE WEEK, ASSISTED PT IN TAKING AM MEDS WITH WATER AND ADMIN EYE DROPS. ALARM SET UP FOR DAILY REMINDERS TO TAKE A.M. MEDICATIONS. APPETITE ADEQUATE </paragraph><paragraph></paragraph><paragraph>EDUCATION: CONSTIPATION PREVENTION AND TREATMENT; PUSH H2O INTAKE. FALL PREVENTION; WEAR NON SLIP FOOTWEAR </paragraph><paragraph></paragraph><paragraph>INTERVENTIONS NEEDED AT NEXT VISIT: ASSESSMENT, MEDIPLANNER</paragraph><paragraph></paragraph><paragraph>COMMUNICATION WITH MD: N.A </paragraph><paragraph></paragraph><paragraph>PT AND CAREGIVER INSTRUCTED TO CALL NATASHA SOTO WITH ANY QUESTIONS OR CONCERNS AND/OR CHANGES IN CONDITION. </paragraph><paragraph></paragraph><paragraph>MANNY FOLEY LPN</paragraph> Encounters Start Date/Time End Date/Time Encounter Type Admission Type Attending [facility] Facility Care Department Encounter ID Discharge Date Discharge Status Discharge Condition Discharge Reason Percent Goals Met 2025-01-16 00:00:00 2025-03-16 00:00:00 Outpatient NEW ADMISSION CARRIE LICEA [facility] [id number] 27.27
== END 2025-01-23 15:48 | disposition home or self-care (01) ==
LOC: HO.HCS 14:58
PROVIDERS: PCP Internal Medicine; Visit Provider Internal Medicine Cardiovascular Disease
DX: I50.30 Unspecified diastolic (congestive) heart failure (principal); Z95.0 Presence of cardiac pacemaker; I48.0 Paroxysmal atrial fibrillation
CPT/HCPCS: 93010; 93280; 99214; G2211

== ENCOUNTER → 2025-01-23 14:57 | Outpatient (BNVA) | payer MEDICARE, SELFPAY | PROVIDERS: PCP Internal Medicine; Visit Provider Internal Medicine Cardiovascular Disease | DX: Z45.010 Encounter for checking and testing of cardiac pacemaker pulse generator [battery] (principal); I48.0 Paroxysmal atrial fibrillation; I50.30 Unspecified diastolic (congestive) heart failure | CPT/HCPCS: 93005; 93280; 99212 ==

== ENCOUNTER 2025-03-08 12:15 | Inpatient (IN) | payer MEDICARE, SELFPAY ==
--- NOTE | ~2025-03-08 | CT_ITS ---
CLINICAL HISTORY: abd distention no bm two weeks CT abdomen and pelvis without contrast Comparison: None provided Findings: There is a cardiac pacemaker. There is no consolidation or pleural effusion. Small focus of bronchiolar inflammation within the right middle lobe. Bandlike area of scarring within the anterior aspect of the right lower lobe. There is moderately severe pancreatic volume loss. 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 There is no calculus or hydronephrosis. The liver, spleen and adrenal glands are unremarkable. There has been a prior cholecystectomy. Severe distention of the rectum with fecal material. Mild thickening of the wall of the rectum with mild infiltration of the adjacent fat. Fluid, gas and mild fecal material within the rest of the colon. No small bowel dilatation. There is distention of the urinary bladder. There has been a prior hysterectomy. The appendix is not definitively seen. There are no secondary findings to suggest appendicitis. The bones are intact. IMPRESSION: 1. Severe distention of the rectum with fecal material with an appearance suggesting possible impaction. Mild associated proctitis. 2. There is distention of the urinary bladder. This document has been electronically signed by: Yadi Barber MD on 03/08/2025 15:50:57
[2025-03-08 12:25] VITALS: BP 132/65; BP 137/74; PULSE 103; PULSE 76; RESP 16; TEMP 36.5; O2SAT 95; O2SAT 97; BMI 25.9
[2025-03-08 12:31] VITALS: BP 132/65; PULSE 76; RESP 16; TEMP 36.5; O2SAT 95
[2025-03-08 12:45] LABS: Hemoglobin 15.3 g/dl (12.0-16.0); Imm Gran Abs Auto 0.08 X10*3/uL (0.00-0.03); Imm Gran Pct Auto 0.5 % (0.0-0.4); Lymphocytes Absolute Auto 0.6 X10*3/uL (1.2-4.9); MANUAL DIFF FLAG SCAN; Mean Corpuscular HGB Conc 33.9 g/dl (31.0-35.0); Mean Corpuscular Hemoglobin 29.5 pg (27.0-33.0); Mean Corpuscular Volume 86.9 fL (80.0-98.0); NRBC Abs Auto 0.000 X10*3/uL (0.0-0.012); NRBC Pct Auto 0.0 /100WBC (0.0-0.2); Platelet Count 435 X10*3/uL (160-400); Red Blood Count 5.19 X10*6/uL (4.20-5.50); SCAN SMEAR FLAG 1; White Blood Count 16.5 X10*3/uL (4.8-10.8)
--- NOTE | 2025-03-08 12:47 | ED.GENADULT ---
HPI - General Adult General Chief complaint: General Medical Stated complaint: CONSTIPATION X2W,HH AIDE NOTICED BLOOD TODAY Time Seen by Provider: 03/08/25 12:19 Source: patient, family, EMS and RN notes reviewed Mode of arrival: EMS Limitations: no limitations History of Present Illness ED Provider: RAJ Simpson HPI narrative: Chief Complaint: ?Constipation for two weeks.? History of Present Illness: 89-year-old female presents with two weeks of constipation. She reports no bowel movements and inability to pass flatus during this period. She denies abdominal pain but endorses nausea and vomiting. Patient describes her abdomen as ?very distended and indurated.? She has tried tmdm-roi-[id number] therapies including suppositories, enemas, and MiraLAX with minimal relief. Past episodes of constipation have occurred but previous episodes have not lasted two weeks. Relevant history includes breast cancer, bladder cancer, and prior total hysterectomy. Concern today is for severe constipation versus bowel obstruction. Review of Systems: ? Gastrointestinal: +constipation, +nausea, +vomiting, unable to pass gas, denies abdominal pain. ? All other systems not specifically reviewed were not discussed. Related Data Home Medications ?Medication ?Instructions ?Recorded ?Confirmed cholecalciferol (vitamin D3) 25 25 mcg PO DAILY 03/11/20 01/23/25 mcg (1,000 unit) capsule coenzyme Q10 100 mg capsule (Co 100 mg PO DAILY 03/11/20 01/23/25 Q-10) cyclosporine 0.05 % eye drops in a 1 drp ophthalmic (eye) BID 07/15/24 01/23/25 dropperette (Restasis) Previous Rx's ?Medication ?Instructions ?Recorded simvastatin 20 mg tablet 20 mg PO BEDTIME #90 tabs 10/15/23 cyanocobalamin (vitamin B-12) 1,000 mcg PO DAILY #90 caps 04/19/24 1,000 mcg capsule gabapentin 300 mg capsule 300 mg PO BEDTIME #90 caps 05/04/24 amiodarone 200 mg tablet 200 mg PO DAILY #30 tabs 10/24/24 omeprazole 20 mg capsule,delayed 20 mg PO DAILY@0630 #90 caps 11/06/24 release nystatin 100,000 unit/gram topical 1 appl topical DAILY #60 grams 11/18/24 powder bisacodyl 5 mg tablet 5 mg PO DAILY 2 days #2 tabs 11/29/24 mineral oil (Fleet Mineral Oil 118 ml NM DAILY PRN constipation 11/29/24 enema) #118 mL bumetanide 1 mg tablet 2 mg (2 x 1 mg) PO DAILY #75 tabs 12/05/24 magnesium oxide 400 mg (241.3 mg 400 mg PO DAILY #30 tabs 12/05/24 magnesium) tablet memantine 7 mg capsule 7 mg PO DAILY #30 ea 12/13/24 sprinkle,extended release 24hr spironolactone 25 mg tablet 25 mg PO BID #90 tabs 12/27/24 apixaban 2.5 mg tablet 2.5 mg PO BID #60 tabs 01/15/25 memantine 14 mg capsule 14 mg PO DAILY #30 caps 02/07/25 sprinkle,extended release 24hr Allergies Allergy/AdvReac Type Severity Reaction Status Date / Time No Known Allergies (No Known Allergy Verified 03/08/25 12:27 Allergies*) Review of Systems Review of Systems: Yes all other systems are reviewed and are negative PMFSH Past Medical History Attestation statement: The following information was validated with the patient. Source: old records reviewed and nursing notes reviewed Medical History Dementia Paroxysmal atrial fibrillation Acute diastolic (congestive) heart failure Persistent atrial fibrillation Multinodular goiter (nontoxic) Pedal edema Removal of staple Visit for suture removal Complicated urinary tract infection Dysphagia Screening for breast cancer Abnormal ultrasound of breast Abnormal mammogram of left breast Multiple falls Physical deconditioning Breast cancer, left Breast cancer Chronic renal insufficiency Cardiac pacemaker in situ AV block Leg edema Screening for diabetes mellitus On beta jake at home Arthritis Vertigo MARIELA (obstructive sleep apnea) Sick sinus syndrome Peripheral vascular disease Menieres disease Urinary bladder cancer Obesity Gout GERD (gastroesophageal reflux disease) Hypercholesterolemia Surgical History History of lumpectomy of left breast (03/10/23) History of esophagogastroduodenoscopy (EGD) S/P cardiac pacemaker procedure Hx of colonoscopy History of cystoscopy S/P MARION-BSO (total abdominal hysterectomy and bilateral salpingo-oophorectomy) History of cataract surgery History of knee replacement History of tonsillectomy History of appendectomy History of cholecystectomy Family History Family History Father Stroke Mother Heart disease Social History Social History Household Members: None Housing: Apartment Are you a primary career based intervention coordinator to a significant other at home: No Do you presently have visiting nurse or other home services: No Alcohol intake: never Comment: patient refusing alarms Patient Tobacco Use Status: Former Tobacco user Tobacco use type: Cigarette Smoked in Last 30 Days: No e-Cigarette/Vaping Use: Never Used Second Hand Smoke Exposure: No Use of substances other than those prescribed or required for medical reasons: No Advance Directives: Yes Advance Directives on File: Yes Advance Directives Date on File: 09/15/21 Do you have a plan to hurt others: No Plan service: No Current occupational status: retired Cognitive needs: No Hearing needs: Yes Vision needs: Yes Physical Exam ED Exam Exam: Physical Exam: ? General: Well appearing elderly female. ? Cardiovascular: Regular rate and rhythm. ? Respiratory: Lungs clear to auscultation bilaterally. ? Abdomen: Markedly distended and indurated; no tenderness; hypoactive bowel sounds; no peritoneal signs. ? Neurologic: Cranial nerves II?XII grossly intact. Vital Signs: Vital Signs - 24 hr 03/08/25 12:25 03/08/25 12:31 03/08/25 15:03 Temperature 97.7 F 97.7 F 98.2 F Pulse Rate 76 76 77 Respiratory Rate 16 16 14 Blood Pressure 132/65 132/65 105/48 L Pulse Oximetry 95 95 95 Oxygen Delivery Method Room Air Room Air Room Air 03/08/25 21:58 Temperature Pulse Rate 69 Respiratory Rate 17 Blood Pressure 119/60 Pulse Oximetry 97 Oxygen Delivery Method Room Air BMI result Body Mass Index 25.9 vss Course Reevaluation(s) Reevaluation #1: CBC with leukocytosis 16.5 with left shift. Chemistry with elevated anion gap elevated kidney function 59 and 3.51 BUN and creatinine respectively. Infection suspected blood cultures lactic acid fluids and antibiotics ordered Time: 13:39 Reevaluation #2: CT abdomen pelvis with severe distention of the rectum with fecal material within appearance suggesting possible impaction mild associated proctitis. Distention of urinary bladder. Urine still pending. I did have a long conversation with patient about disimpaction she does not want to be disimpacted. Will try lactulose enema. I did give signed out to my colleague Alysa. Time: 18:04 Reevaluation #3: 03/08/2025: 1806 Provider: Alysa Leon PA-C; I received this patient in sign-out from the daytime [place]. Briefly this is an 89-year-old female who presented the ED with complain about constipation for the last 2 weeks. She has noticed bright red blood per rectum and is on Eliquis. Her labs demonstrated leukocytosis with the elevation in lactate her CT scan shows a consider amount of stool impaction but she has declined a bedside digital disimpaction. I have recommended a lactulose enema for this patient. Day RAJ has ordered. If this is unsuccessful, as patient meets criteria for admission with her STACI, would recommend hospitalist team consult with GI for sigmoidoscopy for disimpaction. Will continue to monitor and update plan. UA and repeat BNP pending. She does not appear septic, but given labs Zosyn was given prior and IVFs. Trended lactate normalized at 1.3 from 3.0. 2100: Attending physician Dr. Jaeger apperciably helped at bedside to initiate digital disimpaction. soft and firm stool removed, approx 50 cc worth. Patient is now on commode attempting to pass more. Tolerated well. UA still pending. 1216: UA shows 1+ leuks, 1+ protein, 1+ blood, Last U cx on 07/15/24 grew E coli s. Given patient's STACI which is likely prerenal /obstructive along with her leukocytosis and fecal impaction I do feel she would best be suited for admission to the hospital for trending of her kidney function continued IV fluids/ antibiotics and potential sigmoidoscopy if needed. hospital consult placed. 1246: Patient accepted to medicine. Time: 18:06 Medications Administered Generic Name Dose Route Start Last Admin Trade Name Freq PRN Reason Stop Dose Admin Lactated Ringer's 1,000 mls @ 125 mls/hr 03/09/25 01:15 03/09/25 01:32 Lr IVCONT 03/09/25 09:14 125 mls/hr .Q8H ABEBE Administration Discontinued Medications Generic Name Dose Route Start Last Admin Trade Name Freq PRN Reason Stop Dose Admin Piperacillin Sod/Tazobactam 50 mls @ 100 mls/hr 03/08/25 13:39 03/08/25 15:05 Sod 3.375 gm/ Sodium Chloride IV 03/08/25 14:08 Infused ONCE ONE Infusion Sodium Chloride 1,869 mls @ 1,869 mls/hr 03/08/25 13:43 03/08/25 15:39 Ns 30 ml/kg infuse over 1 hr (1869 ml) 03/08/25 14:42 Infused IV Infusion .Q1H STA Lactulose 200 gm 03/08/25 18:00 03/08/25 18:49 Lactulose 320 Gm/480 Ml Solution NM 03/08/25 18:01 200 gm ONCE ONE Administration Procedures Rectal Disimpaction Time out performed rectal disimpaction: Yes Indication: fecal impaction Procedural Sedation: No Sedation/Analgesia: none Technique: manual disimpaction with gloved finger Result: significant stool output Patient Tolerated Procedure: well Complications: pain Medical Decision Making Medical Decision Making [facility] Narrative: 1250 Assessment & Plan Elderly female with prolonged constipation and abdominal distension; differential includes severe constipation vs bowel obstruction. Problem #1: Constipation vs Bowel Obstruction Assessment: Two-week history of no bowel movements or flatus with significant abdominal distension. No peritoneal signs on exam. Concern for possible obstruction requiring further evaluation. Plan: CT abdomen/pelvis without contrast ordered for further evaluation. If imaging is inconclusive and/or patient fails to improve, administer soapsuds enema. Consider additional treatment options as clinically indicated based on imaging results and patient response. Disposition and follow-up to be determined after imaging and therapeutic response. Imaging data relevant for visit: CT abdomen/pelvis without contrast ordered ? results pending. Differential Diagnosis Differential Diagnoses: The differential diagnosis associated with the presentation includes Differential Diagnosis for Prolonged Constipation and Abdominal Distension: Severe constipation/fecal impaction Large bowel obstruction (malignancy, volvulus, stricture) Small bowel obstruction Medication-induced constipation Metabolic causes (hypokalemia, hypothyroidism) Post-surgical adhesions Malignancy recurrence/metastatic disease Other less common causes (e.g., pseudo-obstruction, neurologic disorders) Admission/Observation Consideration of admission/observation: Escalation of care including admission/observation considered Lab Data [facility] Lab Attestation statement: I reviewed the patient's lab results. 03/09/25 05:24 03/09/25 05:24 Labs: Lab Results 03/08/25 03/08/25 03/08/25 Range/Units 12:40 14:06 17:06 WBC 16.5 H (4.8-10.8) X10*3/uL RBC 5.19 (4.20-5.50) X10*6/uL Hgb 15.3 (12.0-16.0) g/dl Hct 45.1 (37.0-47.0) % MCV 86.9 (80.0-98.0) fL MCH 29.5 (27.0-33.0) pg MCHC 33.9 (31.0-35.0) g/dl RDW 14.8 (11.0-16.0) % Plt Count 435 H (160-400) X10*3/uL MPV 9.2 L (9.4-12.3) fL Immature Gran % (Auto) 0.5 H (0.0-0.4) % Neut % (Auto) 90.1 H (45-73) % Lymph % (Auto) 3.3 L (20-40) % [place] % (Auto) 5.9 (2-11) % Eos % (Auto) 0.0 (0-4) % Baso % (Auto) 0.2 (0-2) % Lymph # (Auto) 0.6 L (1.2-4.9) X10*3/uL [place] # (Auto) 1.0 (0.1-1.2) X10*3/uL Eos # (Auto) 0.0 (0.0-0.4) X10*3/uL Baso # (Auto) 0.0 (0.0-0.2) X10*3/uL Abs Immat Gran (auto) 0.08 H (0.00-0.03) X10*3/uL Absolute Neuts (auto) 14.9 H (2.0-8.3) x10*3/uL Absolute Nucleated RBC 0.000 (0.0-0.012) X10*3/uL Nucleated RBC % (auto) 0.0 (0.0-0.2) /100WBC Smear Tech's Comments VERIFIED PT 17.6 H (11.2-13.5) SEC INR 1.5 H (0.9-1.1) Sodium 138 (135-145) mmol/L Potassium 3.8 D (3.3-5.1) mmol/L Chloride 89 L (96-108) mmol/L Carbon Dioxide 30 H (22-29) mmol/L Anion Gap 23 H (12-20) BUN 59 H (9-16) mg/dL Creatinine 3.51 H (0.5-1.4) mg/dL Estim Creat Clear Calc 9.4 Estimated GFR 12 Random Glucose 136 H (60-115) mg/dL Lactic Acid 3.0 H* (0.5-2.0) mmol/L Lactic Acid F/U @ 2Hr 1.3 (0.5-2.0) mmol/L Calcium 10.4 H D (8.4-10.2) mg/dL Total Bilirubin 0.9 (0.0-1.0) mg/dL AST 42 H (5-31) U/L ALT 21 (0-31) U/L Alkaline Phosphatase 122 H (39-117) U/L Total Creatine Kinase 56 (26-140) U/L Total Protein 7.5 (6.5-8.0) g/dL Albumin 4.1 (3.5-5.0) g/dL Lipase 24 (8-78) U/L Urine Color Urine Appearance Urine pH (5.0-9.0) Ur Specific [place] (1.005-1.025) Urine Protein (Neg-Trace) mg/dL Urine Glucose (UA) (Negative) mg/dL Urine Ketones (Negative) mg/dL Urine Blood (Negative) Urine Nitrite (Negative) Ur Leukocyte Esterase (Negative) Urine RBC (0-2) /HPF Urine WBC (0-5) /HPF Ur Squamous Epith Cells (0-2) /HPF Urine Bacteria (None Seen) Hyaline Casts (0-2) /LPF 03/08/25 03/08/25 Range/Units 22:05 23:40 WBC (4.8-10.8) X10*3/uL RBC (4.20-5.50) X10*6/uL Hgb (12.0-16.0) g/dl Hct (37.0-47.0) % MCV (80.0-98.0) fL MCH (27.0-33.0) pg MCHC (31.0-35.0) g/dl RDW (11.0-16.0) % Plt Count (160-400) X10*3/uL MPV (9.4-12.3) fL Immature Gran % (Auto) (0.0-0.4) % Neut % (Auto) (45-73) % Lymph % (Auto) (20-40) % [place] % (Auto) (2-11) % Eos % (Auto) (0-4) % Baso % (Auto) (0-2) % Lymph # (Auto) (1.2-4.9) X10*3/uL [place] # (Auto) (0.1-1.2) X10*3/uL Eos # (Auto) (0.0-0.4) X10*3/uL Baso # (Auto) (0.0-0.2) X10*3/uL Abs Immat Gran (auto) (0.00-0.03) X10*3/uL Absolute Neuts (auto) (2.0-8.3) x10*3/uL Absolute Nucleated RBC (0.0-0.012) X10*3/uL Nucleated RBC % (auto) (0.0-0.2) /100WBC Smear Tech's Comments PT (11.2-13.5) SEC INR (0.9-1.1) Sodium 140 (135-145) mmol/L Potassium 3.9 (3.3-5.1) mmol/L Chloride 96 (96-108) mmol/L Carbon Dioxide 24 (22-29) mmol/L Anion Gap 24 H (12-20) BUN 58 H (9-16) mg/dL Creatinine 3.07 H (0.5-1.4) mg/dL Estim Creat Clear Calc 10.7 Estimated GFR 14 Random Glucose 133 H (60-115) mg/dL Lactic Acid (0.5-2.0) mmol/L Lactic Acid F/U @ 2Hr (0.5-2.0) mmol/L Calcium 10.2 (8.4-10.2) mg/dL Total Bilirubin (0.0-1.0) mg/dL AST (5-31) U/L ALT (0-31) U/L Alkaline Phosphatase (39-117) U/L Total Creatine Kinase (26-140) U/L Total Protein (6.5-8.0) g/dL Albumin (3.5-5.0) g/dL Lipase (8-78) U/L Urine Color Dark Yellow Urine Appearance Clear Urine pH 5.0 (5.0-9.0) Ur Specific [place] 1.015 (1.005-1.025) Urine Protein 30 (1+) H (Neg-Trace) mg/dL Urine Glucose (UA) Negative (Negative) mg/dL Urine Ketones Trace (Negative) mg/dL Urine Blood Small (1+) H (Negative) Urine Nitrite Negative (Negative) Ur Leukocyte Esterase Trace H (Negative) Urine RBC 3-5 H (0-2) /HPF Urine WBC 0-5 (0-5) /HPF Ur Squamous Epith Cells 0-2 (0-2) /HPF Urine Bacteria None Seen (None Seen) Hyaline Casts 3-5 (0-2) /LPF Independent Interpretation I performed an independent interpretation of an: CT Scan Radiology Impression Discussion of test interpretation with radiology: I have reviewed the radiologist's reading. External Record Review External record reviewed: Inpatient record, Office record, Outpatient record, Prior outpatient labs, Prior outpatient radiology, Primary care record and Outside ED record Critical Care Time Critical Care Time Critical Care Time: Yes Total Critical Care Time: 35 Attestation: I attest to this time spent taking care of the patient, obtaining history, physical, reviewing labs, imaging, treatment of patients condition +/- specialist/hospitalist consult +/- procedure Discharge Plan Discharge Clinical Impression: Fecal impaction, Pain, rectal, STACI (acute kidney injury) Leukocytosis Qualifiers: Leukocytosis type: bandemia Qualified Code(s): D72.825 - Bandemia Patient Disposition: Admitted As Inpatient
[2025-03-08 12:57] LABS: Hematocrit 45.1 % (37.0-47.0)
[2025-03-08 12:58] LABS: INTERNATIONAL NORM RATIO 1.5 (0.9-1.1); Prothrombin Time 17.6 SEC (11.2-13.5)
[2025-03-08 13:27] LABS: Alanine Aminotransferase 21 U/L (0-31); Albumin Level 4.1 g/dL (3.5-5.0); Alkaline Phosphatase 122 U/L (39-117); Anion Gap 23 (12-20); Aspartate Amino Transferase 42 U/L (5-31); Blood Urea Nitrogen 59 mg/dL (9-16); Calcium 10.4 mg/dL (8.4-10.2); Carbon Dioxide 30 mmol/L (22-29); Chloride 89 mmol/L (96-108); Creatinine Clr Calc Pharmacy 9.4; Estimated Glomerular Filt Rate 12; Lipase 24 U/L (8-78); Potassium 3.8 mmol/L (3.3-5.1); Sodium 138 mmol/L (135-145); Total Protein 7.5 g/dL (6.5-8.0)
[2025-03-08 15:03] VITALS: BP 105/48; PULSE 77; RESP 14; TEMP 36.8; O2SAT 95
--- NOTE | 2025-03-08 15:13 | PC.NURSE ---
Assumed care of patient at this time. Pt side lying in bed, awake and alert. Family at bedside. Denies pain. Breathing equal and unlabored. IVF continue to infuse. No acute distress noted at this time
[2025-03-08 16:11] LABS: Reflex Lactate? Lactic Acid Added
[2025-03-08 17:29] LABS: ~Lactic Acid-LAB USE ONLY 1.3 mmol/L (0.5-2.0)
[2025-03-08] MEDS: Lactulose 320 GM/480 ML SOLUTION 200 GM PR (18:49)
[2025-03-08 21:58] VITALS: BP 119/60; PULSE 69; RESP 17; O2SAT 97
[2025-03-08 22:24] LABS: Anion Gap 24 (12-20); Blood Urea Nitrogen 58 mg/dL (9-16); Calcium 10.2 mg/dL (8.4-10.2); Carbon Dioxide 24 mmol/L (22-29); Chloride 96 mmol/L (96-108); Creatinine Clr Calc Pharmacy 10.7; Estimated Glomerular Filt Rate 14; Potassium 3.9 mmol/L (3.3-5.1); Sodium 140 mmol/L (135-145)
[2025-03-08 23:53] LABS: Appearance Urine Clear; Glucose Urine UA Negative (Negative); PH 5.0 (5.0-9.0); Specific Gravity - Urine 1.015 (1.005-1.025); UMIC TRIGGER UACC YES
[2025-03-09] VITALS (7 sets, daily range): BP systolic 100–128; BP diastolic 49–84; PULSE 60–70; RESP 12–16; TEMP 36.1–36.4; O2SAT 96–99; BMI 25.6
--- NOTE | 2025-03-09 01:07 | P.HPHOSP_ITS ---
History of Present Illness Date of Service: 03/09/25 Attending physician on admission: Carolyn Ortega Chief Complaint: Constipation X 2 weeks HPI mainly obtained from ED notes. Gricelda Fischer is 89 years old woman with past medical history significant for CKD stage 3B, multiple abdominal surgeries: Appendectomy, cholecystectomy, total abdominal hysterectomy with bilateral salpingo-oophorectomy), permanent pacemaker, paroxysmal atrial fibrillation on Eliquis, HFpEF, dementia, bladder cancer s/p TURBT and mitomycin-C with cytarabine and left breast cancer status post lumpectomy presents to the emergency department complaining of 2 weeks' history of constipation. Patient is a poor historian. Her niece was at bedside and provide limited information. The patient denied abdominal pain but describes distention. She tried multiple lati-uji-zhtiepz medications. Did not report nausea, vomiting, fever, chills or acute urinary changes. Knees and patient unable to name patient's home medications. Per dispense history the patient takes diuretics: Spironolactone and Bumex. In the ED she was found to have stable vital signs. Blood workup showed leukocytosis of 16.5. Hemoglobin is 15.3 and platelets 435. Initially CO2 was elevated but normalized after IV fluids. There was also hypochloremia. Calcium is slightly elevated at 10.4. Anion gap is 23, BUN 53 and creatinine 3.51; repeat labs showed no significant changes. Initial lactic acid was 3.0 and has normalized. LFTs are unremarkable except for mild elevation of AST and alk- phos. Lipase is normal. UA showed protein 1+, ketones trace, blood 1+, nitrites negative, leukocyte steroids trace, RBCs 3-5 and WBCs 0-5. There is no bacteria. Abdominal pelvis CT scan without contrast showed severe distention of the rectum and fecal material with an appearance suggesting possible impaction with mild associated proctitis; urinary bladder is distended. ED Tx: Zosyn 3.375 g IV, NS approximately 2 L IV bolus and lactulose 200 g per rectum Review of Systems 2 Review of Systems: limited, poor historian [facility] Medical History Dementia Paroxysmal atrial fibrillation Acute diastolic (congestive) heart failure Persistent atrial fibrillation Multinodular goiter (nontoxic) Pedal edema Removal of staple Visit for suture removal Complicated urinary tract infection Dysphagia Screening for breast cancer Abnormal ultrasound of breast Abnormal mammogram of left breast Multiple falls Physical deconditioning Breast cancer, left Breast cancer Chronic renal insufficiency Cardiac pacemaker in situ AV block Leg edema Screening for diabetes mellitus On beta jake at home Arthritis Vertigo MARIELA (obstructive sleep apnea) Sick sinus syndrome Peripheral vascular disease Menieres disease Urinary bladder cancer Obesity Gout GERD (gastroesophageal reflux disease) Hypercholesterolemia Family History Father Stroke Mother Heart disease Surgical History History of lumpectomy of left breast (03/10/23) History of esophagogastroduodenoscopy (EGD) S/P cardiac pacemaker procedure Hx of colonoscopy History of cystoscopy S/P MARION-BSO (total abdominal hysterectomy and bilateral salpingo-oophorectomy) History of cataract surgery History of knee replacement History of tonsillectomy History of appendectomy History of cholecystectomy Social History Household Members: None Housing: Apartment Are you a primary home visit field care manager to a significant other at home: No Do you presently have visiting nurse or other home services: No Alcohol intake: never Comment: patient refusing alarms Patient Tobacco Use Status: Former Tobacco user Tobacco use type: Cigarette Smoked in Last 30 Days: No e-Cigarette/Vaping Use: Never Used Second Hand Smoke Exposure: No Use of substances other than those prescribed or required for medical reasons: No Advance Directives: Yes Advance Directives on File: Yes Advance Directives Date on File: 09/15/21 Do you have a plan to hurt others: No Plan service: No Current occupational status: retired Cognitive needs: No Hearing needs: Yes Vision needs: Yes Meds Allergies Allergy/AdvReac Type Severity Reaction Status Date / Time No Known Allergies (No Known Allergy Verified 03/08/25 12:27 Allergies*) Active Medications: Current Medications Acetaminophen (Acetaminophen 325 Mg Tablet) 975 mg PO Q6H PRN PRN Reason: Pain, Mild 1-3,fever,headache Calcium Carbonate (Calcium Carbonate 750 Mg Tab.Chew) 750 mg PO Q4H PRN PRN Reason: Heartburn Lactated Ringer's (Lr) 1,000 mls @ 125 mls/hr IVCONT .Q8H ABEBE Stop: 03/09/25 09:14 Magnesium Hydroxide (Milk Of Magnesia 30 Ml Oral.Susp) 30 ml PO DAILY PRN PRN Reason: Constipation Melatonin (Melatonin 3 Mg Tablet) 6 mg PO BEDTIME PRN PRN Reason: Insomnia Sodium Chloride (0.9 % Sodium Chloride Flush 3 Ml Syringe) 3 ml IVFLUSH QSHIFT [facility] Home Medications ?Medication ?Instructions ?Recorded ?Confirmed ?Last Taken ?Type cholecalciferol (vitamin D3) 25 25 mcg PO DAILY 01/23/25 07/15/24 09:00 History mcg (1,000 unit) capsule coenzyme Q10 100 mg capsule (Co 100 mg PO DAILY 01/23/25 07/15/24 09:00 History Q-10) cyclosporine 0.05 % eye drops in a 1 drp ophthalmic (e ye) BID 07/15/24 01/23/25 07/15/24 09:00 History dropperette (Restasis) Physical Exam 2 Vital Signs and Narrative: Vital Signs: Last Vital Signs Temp 98.2 F 03/08/25 15:03 Pulse 69 03/08/25 21:58 Resp 17 03/08/25 21:58 BP 119/60 03/08/25 21:58 Pulse Ox 97 03/08/25 21:58 O2 Del Method Room Air 03/08/25 21:58 BMI result Body Mass Index 25.9 General: Alert, oriented, in no acute distress. Cooperative. Afebrile. HEENT: Head normocephalic, atraumatic. PER, EOMI. Sclerae anicteric, conjunctiva clear. Oropharynx without erythema or exudate. Mucous membranes dry. Neck: Supple. Heart: RRR, no murmurs, rubs or gallops. Lungs: Clear to auscultation bilaterally. No wheezes, rales, or rhonchi. Normal respiratory effort. Abdomen: Soft, non tenderness, nondistended, increased bowel sounds. Extremities: No calf tenderness bilaterally, no swelling Rectal exam: Abundant light brown liquid feces coming out spontaneously without blood or clots Musculoskeletal: Full range of motion. No joint swelling, deformity, or tenderness. Normal muscle tone and strength. Skin: Warm/Dry. No pallor. No jaundice. Neurologic: Alert & oriented x4. Moving all extremities spontaneously. Normal speech. Psychological: Normal mood and affect. Thought process coherent. Results Labs 03/08/25 12:40 03/08/25 22:05 Labs: Laboratory Results - last 24 hr 03/08/25 03/08/25 03/08/25 12:40 14:06 17:06 MCV 86.9 MCH 29.5 MCHC 33.9 RDW 14.8 Plt Count 435 H MPV 9.2 L Immature Gran % (Auto) 0.5 H Neut % (Auto) 90.1 H Lymph % (Auto) 3.3 L Rhea % (Auto) 5.9 Eos % (Auto) 0.0 Baso % (Auto) 0.2 Lymph # (Auto) 0.6 L Rhea # (Auto) 1.0 Eos # (Auto) 0.0 Baso # (Auto) 0.0 Abs Immat Gran (auto) 0.08 H Absolute Neuts (auto) 14.9 H Absolute Nucleated RBC 0.000 Nucleated RBC % (auto) 0.0 Smear Tech's Comments VERIFIED PT 17.6 H INR 1.5 H Anion Gap 23 H Estim Creat Clear Calc 9.4 Estimated GFR 12 Random Glucose 136 H Lactic Acid 3.0 H* Lactic Acid F/U @ 2Hr 1.3 Calcium 10.4 H D Total Bilirubin 0.9 AST 42 H ALT 21 Alkaline Phosphatase 122 H Total Creatine Kinase 56 Total Protein 7.5 Albumin 4.1 Lipase 24 Urine Color Urine Appearance Urine pH Ur Specific [place] Urine Protein Urine Glucose (UA) Urine Ketones Urine Blood Urine Nitrite Ur Leukocyte Esterase Urine RBC Urine WBC Ur Squamous Epith Cells Urine Bacteria Hyaline Casts 03/08/25 03/08/25 22:05 23:40 MCV MCH MCHC RDW Plt Count MPV Immature Gran % (Auto) Neut % (Auto) Lymph % (Auto) Rhea % (Auto) Eos % (Auto) Baso % (Auto) Lymph # (Auto) Rhea # (Auto) Eos # (Auto) Baso # (Auto) Abs Immat Gran (auto) Absolute Neuts (auto) Absolute Nucleated RBC Nucleated RBC % (auto) Smear Tech's Comments PT INR Anion Gap 24 H Estim Creat Clear Calc 10.7 Estimated GFR 14 Random Glucose 133 H Lactic Acid Lactic Acid F/U @ 2Hr Calcium 10.2 Total Bilirubin AST ALT Alkaline Phosphatase Total Creatine Kinase Total Protein Albumin Lipase Urine Color Dark Yellow Urine Appearance Clear Urine pH 5.0 Ur Specific [place] 1.015 Urine Protein 30 (1+) H Urine Glucose (UA) Negative Urine Ketones Trace Urine Blood Small (1+) H Urine Nitrite Negative Ur Leukocyte Esterase Trace H Urine RBC 3-5 H Urine WBC 0-5 Ur Squamous Epith Cells 0-2 Urine Bacteria None Seen Hyaline Casts 3-5 Assessment and Plan (1) Qagcl-cs-udnsxdy kidney injury: Qualifiers: Acute renal failure type: unspecified Chronic kidney disease stage: s tage 3 (moderate) Chronic kidney disease stage 3 subtype: stage 3b (GFR 30-44) Qualified Code(s): N17.9 - Acute kidney failure, unspecified; N18.32 - Chronic kidney disease, stage 3b Status: Acute (2) Fecal impaction: Status: Acute Plan Gricelda Fischer is 89 y/o woman with a PMHx significant for CKD stage 3B, multiple abdominal surgeries: Appendectomy, cholecystectomy, total abdominal hysterectomy with bilateral salpingo-oophorectomy), bladder cancer s/p TURBT and mitomycin-C with cytarabine and left breast cancer status post lumpectomy who presents with: Acute on chronic kidney injury (stage 3B), likely multifactorial: Diuretics + poor p.o. intake (ketones in urine, elevated CO2 and leukocytosis. Continue IV fluids. Hold diuretics. Continue to monitor renal function. Avoid nephrotoxic agents. Constipation/fecal impaction, resolved after digital disimpaction by ED. High- fiber diet, IV fluids, encourage p.o. intake, laxative as needed and stool softeners. Mild proctitis, due to severe constipation. Treatment supportive: High-fiber diet, IV fluids, encourage p.o. intake and stool softeners. Acute lactic acidosis and leukocytosis. Likely secondary to vomiting --> dehydration/volume depletion. Continue to monitor. Paroxysmal atrial fibrillation. Continue Eliquis and amiodarone. GERD. Continue PPI. Dementia. Continue memantine. Hyperlipidemia. Continue statin. HFpEF. No acute symptoms. Diuretics on hold due to STACI. Permanent pacemaker. Code status: Full DVT prophylaxis: On Eliquis med rec pending Patient will need hospitalization for at least 2 midnights for STACI treatment with IV fluids and close monitoring of renal function. Quality Stroke Does the patient have a stroke diagnosis?: No VTE Prior VTE?: No VTE Risk Level:: Medical - moderate - high VTE Device Contraindication: N/A - Device Ordered VTE Drug Contraindication: Treatment Not Indicated
[2025-03-09] MEDS: Lactated Ringers 1,000 ML 125 ML IVCONT (01:32)
--- NOTE | 2025-03-09 05:04 | PC.NURSE ---
Pt from home with reports of constipation for 2 weeks. Pt states she has tried multiple OTC medications with no effect. Pt reports abd distention but denies abd pain, n/v, fever/chills, or any other symptoms of concern. While in the ED pt was disimpacted by ED provider, received lactulose enema with some effect, IVF and IV abx. Pt has 22G IV in right forearm. Pt is h[place] x2 to self and place, a poor historian. PT being admitted for STACI and further monitoring. CT abdomen/pelvis: IMPRESSION: 1. Severe distention of the rectum with fecal material with an appearance suggesting possible impaction. Mild associated proctitis. 2. There is distention of the urinary bladder.
[2025-03-09 05:29] LABS: Hematocrit 39.7 % (37.0-47.0); Hemoglobin 13.4 g/dl (12.0-16.0); Imm Gran Abs Auto 0.07 X10*3/uL (0.00-0.03); Imm Gran Pct Auto 0.5 % (0.0-0.4); Lymphocytes Absolute Auto 0.8 X10*3/uL (1.2-4.9); MANUAL DIFF FLAG NO; Mean Corpuscular HGB Conc 33.8 g/dl (31.0-35.0); Mean Corpuscular Hemoglobin 29.7 pg (27.0-33.0); Mean Corpuscular Volume 88.0 fL (80.0-98.0); NRBC Abs Auto 0.000 X10*3/uL (0.0-0.012); NRBC Pct Auto 0.0 /100WBC (0.0-0.2); Platelet Count 324 X10*3/uL (160-400); Red Blood Count 4.51 X10*6/uL (4.20-5.50); White Blood Count 15.3 X10*3/uL (4.8-10.8)
[2025-03-09 05:47] LABS: Anion Gap 17 (12-20); Blood Urea Nitrogen 55 mg/dL (9-16); Calcium 9.3 mg/dL (8.4-10.2); Carbon Dioxide 30 mmol/L (22-29); Chloride 97 mmol/L (96-108); Creatinine Clr Calc Pharmacy 11.2; Estimated Glomerular Filt Rate 15; Magnesium 3.5 mg/dL (1.6-2.6); Potassium 4.2 mmol/L (3.3-5.1); Sodium 140 mmol/L (135-145)
--- NOTE | 2025-03-09 10:40 | PHA.MEDREC ---
Addendum entered by Yo Whitaker, PharmD 03/09/25 12:17: MED REC CHECKED BY [facility] Original Note: Pharmacy Consult ? Medication Reconciliation Pharmacy has completed the medication reconciliation. Spoke with pt and she confirmed her medications; pt unsure if she was still taking Spironolactone and told us to call her sister (Beth [phone]) for help. I spoke with Beth and she was able to verify medications confirmed and states pt no longer taking Spironolactone or any diuretics at this time per
--- NOTE | 2025-03-09 12:58 | HO.PM.IMPN ---
Subjective Subjective Date of Service: 03/09/25 Interval History: had large BM overnight poor PO intake last few days SCr improving Review of Systems Review of Systems: Yes all other systems are reviewed and are negative Physical Exam Vital Signs: Vital Signs: Last Vital Signs Temp 97.1 F 03/09/25 12:00 Pulse 60 03/09/25 12:00 Resp 16 03/09/25 12:00 BP 113/56 L 03/09/25 12:00 Pulse Ox 99 03/09/25 12:00 O2 Del Method Room Air 03/09/25 12:00 BMI result Body Mass Index 25.9 Gen: in no acute distress HEENT: sclera anicteric, moist mucus membranes Neck: supple Lungs: clear to auscultation bilaterally Heart: regular rate and rhythm, no murmurs Abd: soft, non-tender, non-distended Ext: no edema Skin: warm/well-perfused Neuro: alert and oriented x3, no focal findings Psych: appropriate affect Objective Data Active Medications Acetaminophen (Acetaminophen 325 Mg Tablet) 975 mg PO Q6H PRN PRN Reason: Pain, Mild 1-3,fever,headache Calcium Carbonate (Calcium Carbonate 750 Mg Tab.Chew) 750 mg PO Q4H PRN PRN Reason: Heartburn Magnesium Hydroxide (Milk Of Magnesia 30 Ml Oral.Susp) 30 ml PO DAILY PRN PRN Reason: Constipation Melatonin (Melatonin 3 Mg Tablet) 6 mg PO BEDTIME PRN PRN Reason: Insomnia Sodium Chloride (0.9 % Sodium Chloride Flush 3 Ml Syringe) 3 ml IVFLUSH QSHIFT [facility] Last Admin: 03/09/25 07:19 Dose: Not Given Documented By: SANDRA Non-Admin Reason: IV Running Labs 03/09/25 05:24 03/09/25 05:24 Labs: Laboratory Results - last 24 hr 03/08/25 03/08/25 03/08/25 12:40 14:06 17:06 MCV 86.9 MCH 29.5 MCHC 33.9 RDW 14.8 Plt Count 435 H MPV 9.2 L Immature Gran % (Auto) 0.5 H Neut % (Auto) 90.1 H Lymph % (Auto) 3.3 L Long % (Auto) 5.9 Eos % (Auto) 0.0 Baso % (Auto) 0.2 Lymph # (Auto) 0.6 L Long # (Auto) 1.0 Eos # (Auto) 0.0 Baso # (Auto) 0.0 Abs Immat Gran (auto) 0.08 H Absolute Neuts (auto) 14.9 H Absolute Nucleated RBC 0.000 Nucleated RBC % (auto) 0.0 Smear Tech's Comments VERIFIED PT 17.6 H INR 1.5 H Anion Gap 23 H Estim Creat Clear Calc 9.4 Estimated GFR 12 Random Glucose 136 H Lactic Acid 3.0 H* Lactic Acid F/U @ 2Hr 1.3 Calcium 10.4 H D Magnesium Total Bilirubin 0.9 AST 42 H ALT 21 Alkaline Phosphatase 122 H Total Creatine Kinase 56 Total Protein 7.5 Albumin 4.1 Lipase 24 Urine Color Urine Appearance Urine pH Ur Specific [place] Urine Protein Urine Glucose (UA) Urine Ketones Urine Blood Urine Nitrite Ur Leukocyte Esterase Urine RBC Urine WBC Ur Squamous Epith Cells Urine Bacteria Hyaline Casts 03/08/25 03/08/25 03/09/25 22:05 23:40 05:24 MCV 88.0 MCH 29.7 MCHC 33.8 RDW 15.0 Plt Count 324 D MPV 9.4 Immature Gran % (Auto) 0.5 H Neut % (Auto) 86.6 H Lymph % (Auto) 5.1 L Long % (Auto) 7.7 Eos % (Auto) 0.0 Baso % (Auto) 0.1 Lymph # (Auto) 0.8 L Long # (Auto) 1.2 Eos # (Auto) 0.0 Baso # (Auto) 0.0 Abs Immat Gran (auto) 0.07 H Absolute Neuts (auto) 13.2 H Absolute Nucleated RBC 0.000 Nucleated RBC % (auto) 0.0 Smear Tech's Comments PT INR Anion Gap 24 H 17 Estim Creat Clear Calc 10.7 11.2 Estimated GFR 14 15 Random Glucose 133 H 94 Lactic Acid Lactic Acid F/U @ 2Hr Calcium 10.2 9.3 D Magnesium 3.5 H* Total Bilirubin AST ALT Alkaline Phosphatase Total Creatine Kinase Total Protein Albumin Lipase Urine Color Dark Yellow Urine Appearance Clear Urine pH 5.0 Ur Specific [place] 1.015 Urine Protein 30 (1+) H Urine Glucose (UA) Negative Urine Ketones Trace Urine Blood Small (1+) H Urine Nitrite Negative Ur Leukocyte Esterase Trace H Urine RBC 3-5 H Urine WBC 0-5 Ur Squamous Epith Cells 0-2 Urine Bacteria None Seen Hyaline Casts 3-5 Assessment and Plan (1) STACI (acute kidney injury): Status: Acute Assessment and Plan: d1, 89yo F with CKD3b, pAF on Eliquis and s/p PPM, HFpEF, dementia, bladder CA s/p TURBT + chemotherapy, breast CA s/p lumpectomy, hx appendectomy/cholecystectomy, MARION presenting with 2 wk of constipation, found to have STACI/CKD3b prerenal STACI/CKD3b - improving with holding diuretics and will continue IV fluid resuscitation and recheck BMP tomorrow constipation/fecal impaction/proctitis - resolved after digital disimpaction, continue prn stool softeners acute lactic acidosis - due to dehydration, not sepsis pAF: amiodarone, apixaban GERD: PPI dementia: memantine HLD: statin HFpEF: not on diuretics, repleting volume VTE ppx: apixaban dispo: PT eval In my clinical judgment, the patient requires continued inpatient hospitalization for the following reasons: IV fluids Total time managing care of this patient today: 35 minutes. Quality Stroke Does the patient have a stroke diagnosis?: No VTE Prior VTE?: No VTE Risk Level:: Medical - moderate - high VTE Device Contraindication: N/A - Device Ordered VTE Drug Contraindication: Treatment Not Indicated
--- NOTE | 2025-03-09 13:56 | MHC.CLN ---
CONSULT CONSULT FOR QUESTION OF WEIGHT LOSS. REVIEW OF WEIGHT HX SHOWS WEIGHT LOSS X 6 MONTHS -9%, NOT SIGNIFICANT. DIET RX: CARDIAC, HIGH FIBER. RD TO MONITOR WEEKLY.
[2025-03-09] MEDS: Lactated Ringers 1,000 ML 100 ML IVCONT (14:28)
--- NOTE | 2025-03-09 15:22 | MHC.CM.PN ---
IMM 03/09/25, EMR REVIEWED PT W/STACI, CM MET W/PT WHO REPORTS SHE LIVES ALONE, USES A 3 WHEELED WALKER FOR MOBILITY, PT ALSO HAS GRAB BARS IN [place], PT REPORTS SHE HAS A CLEANING LADY ONCE A WK AND A NURSE WHO VISITS [facility] AND DOES PT'S VS, PT UNABLE TO RECALL NAME. PT'S GOAL FOR DC IS HOME ONCE MEDICALLY CLEARED. PT VERIFIES PCP IS DR. ORO AND HCP ON FILE FROM PREVIOUS ADMIT. DP: HOME W/RESUMP OF SERVICES, PT MAY NEED ASSIST W/TRANSPORT
[2025-03-10] VITALS (7 sets, daily range): BP systolic 100–120; BP diastolic 50–68; PULSE 60–86; RESP 12–16; TEMP 36–36.6; O2SAT 96–98
[2025-03-10] MEDS: Lactated Ringers 1,000 ML 100 ML IVCONT ×3 (00:14→23:17)
[2025-03-10 06:24] LABS: Hematocrit 38.0 % (37.0-47.0); Hemoglobin 12.6 g/dl (12.0-16.0); Mean Corpuscular HGB Conc 33.2 g/dl (31.0-35.0); Mean Corpuscular Hemoglobin 29.2 pg (27.0-33.0); Mean Corpuscular Volume 88.2 fL (80.0-98.0); NRBC Abs Auto 0.000 X10*3/uL (0.0-0.012); NRBC Pct Auto 0.0 /100WBC (0.0-0.2); Platelet Count 343 X10*3/uL (160-400); Red Blood Count 4.31 X10*6/uL (4.20-5.50); White Blood Count 10.5 X10*3/uL (4.8-10.8)
[2025-03-10 06:44] LABS: Alanine Aminotransferase 16 U/L (0-31); Albumin Level 3.1 g/dL (3.5-5.0); Alkaline Phosphatase 97 U/L (39-117); Aspartate Amino Transferase 43 U/L (5-31); Blood Urea Nitrogen 48 mg/dL (9-16); Calcium 9.0 mg/dL (8.4-10.2); Creatinine Clr Calc Pharmacy 15.8; Estimated Glomerular Filt Rate 23; Magnesium 2.6 mg/dL (1.6-2.6); Total Protein 5.8 g/dL (6.5-8.0)
[2025-03-10 06:55] LABS: Anion Gap 16 (12-20); Carbon Dioxide 27 mmol/L (22-29); Chloride 99 mmol/L (96-108); Potassium 3.2 mmol/L (3.3-5.1); Sodium 139 mmol/L (135-145)
[2025-03-10] MEDS: Potassium Chloride ER 20 MEQ TAB.ER.PRT 40 MEQ PO (08:47)
--- NOTE | 2025-03-10 10:31 | HO.PM.IMPN ---
Subjective Subjective Date of Service: 03/10/25 Interval History: no abd pain, having BMs, SCr improving Review of Systems Review of Systems: Yes all other systems are reviewed and are negative Physical Exam Vital Signs: Vital Signs: Last Vital Signs Temp 96.8 F 03/10/25 07:31 Pulse 60 03/10/25 08:43 Resp 12 03/10/25 08:43 BP 111/53 L 03/10/25 08:43 Pulse Ox 96 03/10/25 08:43 O2 Del Method Room Air 03/10/25 08:43 BMI result Body Mass Index 25.6 Gen: in no acute distress HEENT: sclera anicteric, moist mucus membranes Neck: supple Lungs: clear to auscultation bilaterally Heart: regular rate and rhythm, no murmurs Abd: soft, non-tender, non-distended Ext: no edema Skin: warm/well-perfused Neuro: alert and oriented x3, no focal findings Psych: appropriate affect Objective Data Active Medications Acetaminophen (Acetaminophen 325 Mg Tablet) 975 mg PO Q6H PRN PRN Reason: Pain, Mild 1-3,fever,headache Amiodarone HCl (Amiodarone Hcl 200 Mg Tablet) 200 mg PO DAILY [facility] Last Admin: 03/10/25 08:47 Dose: 200 mg Documented By: VIVEK Apixaban (Apixaban 2.5 Mg Tablet) 2.5 mg PO BID [facility] Last Admin: 03/10/25 08:47 Dose: 2.5 mg Documented By: VIVEK Atorvastatin Calcium (Atorvastatin Calcium 10 Mg Tablet) 10 mg PO DAILY [facility] Last Admin: 03/10/25 08:47 Dose: 10 mg Documented By: VIVEK Calcium Carbonate (Calcium Carbonate 750 Mg Tab.Chew) 750 mg PO Q4H PRN PRN Reason: Heartburn Cyanocobalamin (Cyanocobalamin (Vitamin B-12) 1,000 Mcg Tablet) 1,000 mcg PO DAILY [facility] Last Admin: 03/10/25 08:47 Dose: 1,000 mcg Documented By: VIVEK Gabapentin (Gabapentin 300 Mg Capsule) 300 mg PO BEDTIME [facility] Last Admin: 03/09/25 20:48 Dose: 300 mg Documented By: TRISTIN Lactated Ringer's (Lr) 1,000 mls @ 100 mls/hr IVCONT .Q10H [facility] Last Infusion: 03/10/25 08:55 Dose: 100 mls/hr Documented By: VIVEK Magnesium Hydroxide (Milk Of Magnesia 30 Ml Oral.Susp) 30 ml PO DAILY PRN PRN Reason: Constipation Magnesium Oxide (Magnesium Oxide 400 Mg Tablet) 400 mg PO DAILY [facility] Last Admin: 03/10/25 08:47 Dose: 400 mg Documented By: VIVEK Melatonin (Melatonin 3 Mg Tablet) 6 mg PO BEDTIME PRN PRN Reason: Insomnia Pt Own (Memantine 14 Mg Capsule,Sprinkle ,Er 24hr) 14 mg PO DAILY [facility] Last Admin: 03/10/25 08:48 Dose: 14 mg Documented By: VIVEK Nystatin (Nystatin Powder 15 Gm Bottle) 1 appl TOPICAL DAILY PRN; Protocol PRN Reason: Rash Last Admin: 03/10/25 08:48 Dose: 1 appl Documented By: VIVEK Omeprazole (Omeprazole 20 Mg Capsule.Dr) 20 mg PO DAILY@0630 [facility] Last Admin: 03/10/25 05:59 Dose: 20 mg Documented By: TRISTIN Sodium Chloride (0.9 % Sodium Chloride Flush 3 Ml Syringe) 3 ml IVFLUSH QSHIFT [facility] Last Admin: 03/10/25 08:54 Dose: Not Given Documented By: VIVEK Non-Admin Reason: Unable to Scan Barcode Vitamin D (Cholecalciferol (Vitamin D3) 25 Mcg Tablet) 25 mcg PO DAILY [facility] Last Admin: 03/10/25 08:47 Dose: 25 mcg Documented By: VIVEK Labs 03/10/25 05:58 03/10/25 05:58 Labs: Laboratory Results - last 24 hr 03/10/25 05:58 MCV 88.2 MCH 29.2 MCHC 33.2 RDW 15.3 Plt Count 343 MPV 9.8 Absolute Nucleated RBC 0.000 Nucleated RBC % (auto) 0.0 Anion Gap 16 Estim Creat Clear Calc 15.8 Estimated GFR 23 Random Glucose 70 Calcium 9.0 Phosphorus 2.6 L Magnesium 2.6 Total Bilirubin 0.6 AST 43 H ALT 16 Alkaline Phosphatase 97 Total Protein 5.8 L Albumin 3.1 L Microbiology Microbiology Results: Microbiology 03/08/25 14:06 Blood Culture - Preliminary Blood - Venous No growth after 24 hours. 03/08/25 14:06 Blood Culture - Preliminary Blood - Venous No growth after 24 hours. Assessment and Plan (1) STACI (acute kidney injury): Status: Acute Assessment and Plan: d2, 89yo F with CKD3b, pAF on Eliquis and s/p PPM, HFpEF, dementia, bladder CA s/p TURBT + chemotherapy, breast CA s/p lumpectomy, hx appendectomy/cholecystectomy, MARION presenting with 2 wk of constipation, found to have STACI/CKD3b prerenal STACI/CKD3b - continue IV fluid resuscitation and recheck BMP tomorrow hypoK - replete constipation/fecal impaction/proctitis - resolved after digital disimpaction, continue prn stool softeners acute lactic acidosis - due to dehydration, not sepsis pAF: amiodarone, apixaban GERD: PPI dementia: memantine HLD: statin HFpEF: not on diuretics, repleting volume VTE ppx: apixaban dispo: PT eval- plan home with VNA In my clinical judgment, the patient requires continued inpatient hospitalization for the following reasons: IV fluids Total time managing care of this patient today: 35 minutes. Quality Stroke Does the patient have a stroke diagnosis?: No VTE Prior VTE?: No VTE Risk Level:: Medical - moderate - high VTE Device Contraindication: N/A - Device Ordered VTE Drug Contraindication: Treatment Not Indicated
--- NOTE | 2025-03-10 12:12 | HO.SKINPHOTO ---
Location: buttock Buttock pink is blanchable, small excoriated area as shown in picture on left buttock- triad cream applied. Low airloss machine applied to bed and utilized. Waffle cushion placed on chair. Patient encouraged to turn and reposition. Patient also c/o discomfort on right heel, heel pink but blanchable, foam dressings applied, heels elevated off bed with pillow. Patient reported improved discomfort after floating heels. Education provided to patient regarding pressure ulcer prevention.
--- NOTE | 2025-03-10 15:30 | PC.NURSE ---
Patient has not voided during shift, previous attempt up to bathroom with no void. Bladder scanned patient >400 (refer to flowsheet), patient up to bathroom and was unable to void, reached out to provider Gerson and informed provider of bladder scan amount and inability to void, straight cath ordered. Patient straight cath using sterile technique and tolerated well. 500 cc of concentrated urine.
[2025-03-10] MEDS: 0.9 % Sodium Chloride Flush 3 ML SYRINGE IVFLUSH (20:13)
[2025-03-11] VITALS (9 sets, daily range): BP systolic 90–134; BP diastolic 48–57; PULSE 60–64; RESP 16–18; TEMP 36.1–37.4; O2SAT 94–99; BMI 25.7
--- NOTE | 2025-03-11 04:11 | PM.EVENT ---
Event Note Date of Service: 03/11/25 Event Note: 0400 Nursing reporting repeat episode of urinary retention, BS 458 mls, after requiring earlier straight catheterization for retention at 1530 on 03/10. Pt attempted to void but was not able to do so. Order placed for betancourt catheter and will send repeat UA. Time Spent With Patient Time: Total time managing care of this patient today ____ minutes.
[2025-03-11 04:58] LABS: Appearance Urine Clear; Glucose Urine UA Negative (Negative); PH 6.0 (5.0-9.0); Specific Gravity - Urine 1.015 (1.005-1.025); UMIC TRIGGER UA YES
--- NOTE | 2025-03-11 07:15 | PC.NURSE ---
pt BS for 458 mL at 0345 Provider Chrissy notified. pt ambulated to bathroom - no urine. Order for betancourt obtained. Betancourt placed with initial output 410 mL dark yellow urine.
[2025-03-11 07:46] LABS: Anion Gap 12 (12-20); Blood Urea Nitrogen 36 mg/dL (9-16); Calcium 8.4 mg/dL (8.4-10.2); Carbon Dioxide 27 mmol/L (22-29); Chloride 104 mmol/L (96-108); Creatinine Clr Calc Pharmacy 20.1; Estimated Glomerular Filt Rate 30; Potassium 3.7 mmol/L (3.3-5.1); Sodium 139 mmol/L (135-145)
--- NOTE | 2025-03-11 14:23 | PC.NURSE ---
Rivera removed around 10:30am, patient has been up to bathroom but has not been able to void. Bladder scan performed, only 76cc scanned. Provider Gerson notified of bladder scan amount. IV fluids ordered for bladder scan amount.
--- NOTE | 2025-03-11 16:01 | PC.NURSE ---
Patient up to bathroom, only voided 50cc, post void bladder scan 340cc. Provider Gerson aware via tigerconnect. IV bolus still infusing due to IV issues with downstream occlusions, infusing now with no issues.
--- NOTE | 2025-03-11 16:03 | P.PNIM_ITS ---
Subjective Subjective Date of Service: 03/11/25 Interval History: betancourt removed, awaiting void Review of Systems Review of Systems: Yes all other systems are reviewed and are negative Physical Exam 2 Vital Signs: Vital Signs: Last Vital Signs Temp 97.3 F 03/11/25 15:13 Pulse 60 03/11/25 15:13 Resp 18 03/11/25 15:13 BP 103/51 L 03/11/25 15:13 Pulse Ox 99 03/11/25 15:13 O2 Del Method Room Air 03/11/25 15:13 BMI result Body Mass Index 25.7 Gen: in no acute distress HEENT: sclera anicteric, moist mucus membranes Neck: supple Lungs: clear to auscultation bilaterally Heart: regular rate and rhythm, no murmurs Abd: soft, non-tender, non-distended Ext: no edema Skin: warm/well-perfused Neuro: alert and oriented x3, no focal findings Psych: appropriate affect Objective Data Active Medications Acetaminophen (Acetaminophen 325 Mg Tablet) 975 mg PO Q6H PRN PRN Reason: Pain, Mild 1-3,fever,headache Amiodarone HCl (Amiodarone Hcl 200 Mg Tablet) 200 mg PO DAILY [facility] Last Admin: 03/11/25 08:41 Dose: 200 mg Documented By: VIVEK Apixaban (Apixaban 2.5 Mg Tablet) 2.5 mg PO BID [facility] Last Admin: 03/11/25 08:41 Dose: 2.5 mg Documented By: VIVEK Atorvastatin Calcium (Atorvastatin Calcium 10 Mg Tablet) 10 mg PO DAILY [facility] Last Admin: 03/11/25 08:41 Dose: 10 mg Documented By: VIVEK Calcium Carbonate (Calcium Carbonate 750 Mg Tab.Chew) 750 mg PO Q4H PRN PRN Reason: Heartburn Cyanocobalamin (Cyanocobalamin (Vitamin B-12) 1,000 Mcg Tablet) 1,000 mcg PO DAILY [facility] Last Admin: 03/11/25 08:41 Dose: 1,000 mcg Documented By: VIVEK Gabapentin (Gabapentin 300 Mg Capsule) 300 mg PO BEDTIME [facility] Last Admin: 03/10/25 20:13 Dose: 300 mg Documented By: JASMYN Magnesium Hydroxide (Milk Of Magnesia 30 Ml Oral.Susp) 30 ml PO DAILY PRN PRN Reason: Constipation Magnesium Oxide (Magnesium Oxide 400 Mg Tablet) 400 mg PO DAILY [facility] Last Admin: 03/11/25 08:41 Dose: 400 mg Documented By: VIVEK Melatonin (Melatonin 3 Mg Tablet) 6 mg PO BEDTIME PRN PRN Reason: Insomnia Pt Own (Memantine 14 Mg Capsule,Sprinkle ,Er 24hr) 14 mg PO DAILY [facility] Last Admin: 03/11/25 08:41 Dose: 14 mg Documented By: VIVEK Nystatin (Nystatin Powder 15 Gm Bottle) 1 appl TOPICAL DAILY PRN; Protocol PRN Reason: Rash Last Admin: 03/10/25 08:48 Dose: 1 appl Documented By: VIVEK Omeprazole (Omeprazole 20 Mg Capsule.Dr) 20 mg PO DAILY@0630 [facility] Last Admin: 03/11/25 05:58 Dose: 20 mg Documented By: JASMYN Sodium Chloride (0.9 % Sodium Chloride Flush 3 Ml Syringe) 3 ml IVFLUSH QSHIFT [facility] Last Admin: 03/11/25 11:21 Dose: Not Given Documented By: VIVEK Non-Admin Reason: IV Running Vitamin D (Cholecalciferol (Vitamin D3) 25 Mcg Tablet) 25 mcg PO DAILY [facility] Last Admin: 03/11/25 08:41 Dose: 25 mcg Documented By: VIVEK Labs 03/10/25 05:58 03/11/25 05:58 Labs: Laboratory Results - last 24 hr 03/11/25 03/11/25 04:35 05:58 Anion Gap 12 Estim Creat Clear Calc 20.1 Estimated GFR 30 Random Glucose 91 Calcium 8.4 D Urine Color Yellow Urine Appearance Clear Urine pH 6.0 Ur Specific [place] 1.015 Urine Protein 30 (1+) H Urine Glucose (UA) Negative Urine Ketones Negative Urine Blood Trace H Urine Nitrite Negative Ur Leukocyte Esterase Small (1+) H Urine RBC 3-5 H Urine WBC 11-20 H Ur Squamous Epith Cells 3-5 Urine Bacteria Trace Hyaline Casts 0-2 Urine Yeast Present Microbiology Microbiology Results: Microbiology 03/08/25 14:06 Blood Culture - Preliminary Blood - Venous No growth after 48 hours. 03/08/25 14:06 Blood Culture - Preliminary Blood - Venous No growth after 48 hours. Assessment and Plan (1) STACI (acute kidney injury): Status: Acute Assessment and Plan: d3, 89yo F with CKD3b, pAF on Eliquis and s/p PPM, HFpEF, dementia, bladder CA s/p TURBT + chemotherapy, breast CA s/p lumpectomy, hx appendectomy/cholecystectomy, MARION presenting with 2 wk of constipation, found to have STACI/CKD3b prerenal STACI/CKD3b - Cr close to baseline, recheck tomorrow acute urinary retention - trial to void, if fails may need to d/c with Betancourt in place with Urology follow up hypoK - repleted constipation/fecal impaction/proctitis - resolved after digital disimpaction, continue prn stool softeners acute lactic acidosis - due to dehydration, not sepsis pAF: amiodarone, apixaban GERD: PPI dementia: memantine HLD: statin HFpEF: not on diuretics, repleting volume VTE ppx: apixaban dispo: PT eval- plan home with VNA In my clinical judgment, the patient requires continued inpatient hospitalization for the following reasons: IV fluids Total time managing care of this patient today: 35 minutes. Quality Stroke Does the patient have a stroke diagnosis?: No VTE Prior VTE?: No VTE Risk Level:: Medical - moderate - high VTE Device Contraindication: N/A - Device Ordered VTE Drug Contraindication: Treatment Not Indicated
--- NOTE | 2025-03-11 18:12 | PC.NURSE ---
patient up to bathroom - voided 250cc - post void bladder scan was 299.
[2025-03-11] MEDS: 0.9 % Sodium Chloride Flush 3 ML SYRINGE IVFLUSH (22:04)
[2025-03-12] VITALS (9 sets, daily range): BP systolic 91–129; BP diastolic 44–78; PULSE 60–83; RESP 16–18; TEMP 36.1–36.4; O2SAT 95–99; BMI 30.8
[2025-03-12] MEDS: 0.9 % Sodium Chloride Flush 3 ML SYRINGE IVFLUSH ×3 (08:52→19:58)
[2025-03-12 09:11] LABS: Anion Gap 9 (12-20); Blood Urea Nitrogen 26 mg/dL (9-16); Calcium 8.5 mg/dL (8.4-10.2); Carbon Dioxide 29 mmol/L (22-29); Chloride 107 mmol/L (96-108); Creatinine Clr Calc Pharmacy 28.1; Estimated Glomerular Filt Rate 40; Potassium 3.9 mmol/L (3.3-5.1); Sodium 141 mmol/L (135-145)
--- NOTE | 2025-03-12 12:18 | W.MHC.F2F ---
Service Date Service Date: 03/12/25 Encounter Date of encounter: 03/12/25 Reasons for Services Signs and symptoms assessed: attach PT evaluation Reason for chcf: medication management, medication treatment and teach disease management Reason for physical therapy: home safety and mobility, therapeutic exercises, gait/transfer training, assess need for DME, ADL training and energy conservation MD Overseeing Care: Román Naik Homebound: Leaving the home is medically contraindicated at this time without the asist of a device and/or another person due th the listed conditions above and below. Reason homebound: fall risk related to blood pressure changes and weakness related to hospital stay Certification: Based on the above findings, I certify that this patient is confined to the home and needs intermittent chcf care, physical therapy and/or speech therapy, or continues to need occupational therapy. The patient is under my care, and I have initiated the establishment of the plan of care. The patient will be followed by a physician who will periodically review the plan of care. Time Spent With Patient Time: Total time managing care of this patient today ____ minutes.
--- NOTE | 2025-03-12 12:37 | PM.DS ---
DS: Providers Provider Date of Service: 03/12/25 Date of admission: 03/09/25 01:01 Date of discharge: 03/12/25 Primary care physician: Román Naik MD Consults: 03/09/25 05:49 Consult to Nephrology Routine Consulting Provider: [facility] Reason for consultation: Acute on chronic kidney injury Has provider been notified: No 03/10/25 00:46 Consult to Wound Care Routine Consulting Provider: [facility] Reason for consultation: redness to buttocks and inner thighs DS: Diagnosis Discharge Diagnosis (1) STACI (acute kidney injury): Status: Acute (2) CKD stage 3b, GFR 30-44 ml/min: Status: Acute (3) Fecal impaction: Status: Acute (4) Urinary retention: Status: Acute (5) Hypokalemia: Status: Acute (6) Acute lactic acidosis: Status: Acute DS: Summary Hospital Course Hospital Course: From the history and physical by the admitting hospitalist, Carolyn Levi, 03/09/25: Azul Fischer is 89 years old woman with past medical history significant for CKD stage 3B, multiple abdominal surgeries: Appendectomy, cholecystectomy, total abdominal hysterectomy with bilateral salpingo-oophorectomy), permanent pacemaker, paroxysmal atrial fibrillation on Eliquis, HFpEF, dementia, bladder cancer s/p TURBT and mitomycin-C with cytarabine and left breast cancer status post lumpectomy presents to the emergency department complaining of 2 weeks' history of constipation. Patient is a poor historian. Her niece was at bedside and provide limited information. The patient denied abdominal pain but describes distention. She tried multiple [id number] medications. Did not report nausea, vomiting, fever, chills or acute urinary changes. Knees and patient unable to name patient's home medications. Per dispense history the patient takes diuretics: Spironolactone and Bumex. In the ED she was found to have stable vital signs. Blood workup showed leukocytosis of 16.5. Hemoglobin is 15.3 and platelets 435. Initially CO2 was elevated but normalized after IV fluids. There was also hypochloremia. Calcium is slightly elevated at 10.4. Anion gap is 23, BUN 53 and creatinine 3.51; repeat labs showed no significant changes. Initial lactic acid was 3.0 and has normalized. LFTs are unremarkable except for mild elevation of AST and alk-phos. Lipase is normal. UA showed protein 1+, ketones trace, blood 1+, nitrites negative, leukocyte steroids trace, RBCs 3-5 and WBCs 0-5. There is no bacteria. Abdominal pelvis CT scan without contrast showed severe distention of the rectum and fecal material with an appearance suggesting possible impaction with mild associated proctitis; urinary bladder is distended. ED Tx: Zosyn 3.375 g IV, NS approximately 2 L IV bolus and lactulose 200 g per rectum' 89yo F with CKD3b, pAF on Eliquis and s/p PPM, HFpEF, dementia, bladder CA s/p TURBT + chemotherapy, breast CA s/p lumpectomy, hx appendectomy/cholecystectomy, MARION presenting with 2 wk of constipation, found to have STACI/CKD3b admitted to the hospitalist service/medical-surgical unit Hospital course by problem: prerenal STACI/CKD3b - resolved with IV fluid resuscitation acute urinary retention - was straight-cathed; underwent voiding trial and able to void but still with PVR around 300 mL; should follow up with Urology regarding her incomplete bladder emptying hypoK - repleted constipation/fecal impaction/proctitis - resolved after digital disimpaction, continue prn stool softeners acute lactic acidosis - due to dehydration, not sepsis She was discharged home with VNA services/home PT. Time Attestation Discharge Coordination Time (in mins): 35 Quality: Safe Use of Opioids Does Pt have an Active Cancer Diagnosis on the Problem List?: No Quality: Stroke Does the patient have a stroke diagnosis?: No Physical Exam Vital Signs: Vital Signs: Last Vital Signs Temp 97.4 F 03/12/25 07:54 Pulse 60 03/12/25 12:00 Resp 16 03/12/25 12:00 BP 105/53 L 03/12/25 12:00 Pulse Ox 95 03/12/25 12:00 O2 Del Method Room Air 03/12/25 12:00 BMI result Body Mass Index 30.8 Gen: in no acute distress HEENT: sclera anicteric, moist mucus membranes Neck: supple Lungs: clear to auscultation bilaterally Heart: regular rate and rhythm, no murmurs Abd: soft, non-tender, non-distended Ext: no edema Skin: warm/well-perfused Neuro: alert and oriented x3, no focal findings Psych: appropriate affect DS: Data Data Completed and Pending Completed studies during hospitalization [Text1]: Laboratory Results WBC 10.5 X10*3/uL (4.8-10.8) 03/10/25 05:58 RBC 4.31 X10*6/uL (4.20-5.50) 03/10/25 05:58 Hgb 12.6 g/dl (12.0-16.0) 03/10/25 05:58 Hct 38.0 % (37.0-47.0) 03/10/25 05:58 MCV 88.2 fL (80.0-98.0) 03/10/25 05:58 MCH 29.2 pg (27.0-33.0) 03/10/25 05:58 MCHC 33.2 g/dl (31.0-35.0) 03/10/25 05:58 RDW 15.3 % (11.0-16.0) 03/10/25 05:58 Plt Count 343 X10*3/uL (160-400) 03/10/25 05:58 MPV 9.8 fL (9.4-12.3) 03/10/25 05:58 Immature Gran % (Auto) 0.5 % (0.0-0.4) H 03/09/25 05:24 Neut % (Auto) 86.6 % (45-73) H 03/09/25 05:24 Lymph % (Auto) 5.1 % (20-40) L 03/09/25 05:24 [place] % (Auto) 7.7 % (2-11) 03/09/25 05:24 Eos % (Auto) 0.0 % (0-4) 03/09/25 05:24 Baso % (Auto) 0.1 % (0-2) 03/09/25 05:24 Lymph # (Auto) 0.8 X10*3/uL (1.2-4.9) L 03/09/25 05:24 [place] # (Auto) 1.2 X10*3/uL (0.1-1.2) 03/09/25 05:24 Eos # (Auto) 0.0 X10*3/uL (0.0-0.4) 03/09/25 05:24 Baso # (Auto) 0.0 X10*3/uL (0.0-0.2) 03/09/25 05:24 Abs Immat Gran (auto) 0.07 X10*3/uL (0.00-0.03) H 03/09/25 05:24 Absolute Neuts (auto) 13.2 x10*3/uL (2.0-8.3) H 03/09/25 05:24 Absolute Nucleated RBC 0.000 X10*3/uL (0.0-0.012) 03/10/25 05:58 Nucleated RBC % (auto) 0.0 /100WBC (0.0-0.2) 03/10/25 05:58 Smear Tech's Comments VERIFIED 03/08/25 12:40 Hold Purple Top SEE NOTE 03/12/25 07:55 PT 17.6 SEC (11.2-13.5) H 03/08/25 12:40 INR 1.5 (0.9-1.1) H 03/08/25 12:40 Sodium 141 mmol/L (135-145) 03/12/25 07:55 Potassium 3.9 mmol/L (3.3-5.1) 03/12/25 07:55 Chloride 107 mmol/L (96-108) 03/12/25 07:55 Carbon Dioxide 29 mmol/L (22-29) 03/12/25 07:55 Anion Gap 9 (12-20) L 03/12/25 07:55 BUN 26 mg/dL (9-16) H 03/12/25 07:55 Creatinine 1.27 mg/dL (0.5-1.4) 03/12/25 07:55 Estim Creat Clear Calc 28.1 03/12/25 07:55 Estimated GFR 40 03/12/25 07:55 Random Glucose 72 mg/dL (60-115) 03/12/25 07:55 Lactic Acid 3.0 mmol/L (0.5-2.0) H* 03/08/25 14:06 Lactic Acid F/U @ 2Hr 1.3 mmol/L (0.5-2.0) 03/08/25 17:06 Calcium 8.5 mg/dL (8.4-10.2) 03/12/25 07:55 Phosphorus 2.6 mg/dL (2.7-4.5) L 03/10/25 05:58 Magnesium 2.6 mg/dL (1.6-2.6) 03/10/25 05:58 Total Bilirubin 0.6 mg/dL (0.0-1.0) 03/10/25 05:58 AST 43 U/L (5-31) H 03/10/25 05:58 ALT 16 U/L (0-31) 03/10/25 05:58 Alkaline Phosphatase 97 U/L (39-117) 03/10/25 05:58 Total Creatine Kinase 56 U/L (26-140) 03/08/25 12:40 Total Protein 5.8 g/dL (6.5-8.0) L 03/10/25 05:58 Albumin 3.1 g/dL (3.5-5.0) L 03/10/25 05:58 Lipase 24 U/L (8-78) 03/08/25 12:40 Urine Color Yellow 03/11/25 04:35 Urine Appearance Clear 03/11/25 04:35 Urine pH 6.0 (5.0-9.0) 03/11/25 04:35 Ur Specific [place] 1.015 (1.005-1.025) 03/11/25 04:35 Urine Protein 30 (1+) mg/dL (Neg-Trace) H 03/11/25 04:35 Urine Glucose (UA) Negative mg/dL (Negative) 03/11/25 04:35 Urine Ketones Negative mg/dL (Negative) 03/11/25 04:35 Urine Blood Trace (Negative) H 03/11/25 04:35 Urine Nitrite Negative (Negative) 03/11/25 04:35 Ur Leukocyte Esterase Small (1+) (Negative) H 03/11/25 04:35 Urine RBC 3-5 /HPF (0-2) H 03/11/25 04:35 Urine WBC 11-20 /HPF (0-5) H 03/11/25 04:35 Ur Squamous Epith Cells 3-5 /HPF (0-2) 03/11/25 04:35 Urine Bacteria Trace (None Seen) 03/11/25 04:35 Hyaline Casts 0-2 /LPF (0-2) 03/11/25 04:35 Urine Yeast Present 03/11/25 04:35 Discharge Plan Discharge Anticipated Discharge Date/Time: 03/12/25 12:22 Patient Disposition: Home Health Service Discharge Diagnosis: acute/chronic kidney injury urinary retention fecal impaction/constipation Referrals: Francisco Dowell MD [Physician, Urology] - 2 Weeks Po,Román Leslie MD [Primary Care Provider, Internal Medicine] - 1 Week Discharge Medications: New sennosides-docusate sodium 8.6-50 mg tablet 1 tab-cap PO BID Qty: 60 0RF polyethylene glycol 3350 [Miralax] 17 gram powder in packet 17 g PO DAILY Qty: 30 0RF Continued simvastatin 20 mg tablet 20 mg PO BEDTIME Qty: 90 3RF cyanocobalamin (vitamin B-12) 1,000 mcg capsule 1,000 mcg PO DAILY Qty: 90 3RF omeprazole 20 mg capsule,delayed release(DR/EC) 20 mg PO DAILY@0630 Qty: 90 1RF memantine 14 mg capsule,sprinkle,ER 24hr 14 mg PO DAILY Qty: 30 0RF cyclosporine [Restasis] 0.05 % dropperette 1 drp ophthalmic (eye) BID nystatin 100,000 unit/gram powder 1 appl topical DAILY PRN (Reason: Rash) Rx Instructions: Apply 2 times per day thin coat of topical powder to affected area cholecalciferol (vitamin D3) 25 mcg (1,000 unit) capsule 25 mcg PO DAILY coenzyme Q10 [Co Q-10] 100 mg capsule 100 mg PO DAILY gabapentin 300 mg capsule 300 mg PO BEDTIME Qty: 90 3RF apixaban 2.5 mg tablet 2.5 mg PO BID Qty: 60 3RF magnesium oxide 400 mg (241.3 mg magnesium) tablet 400 mg PO DAILY Qty: 30 3RF amiodarone 200 mg tablet 200 mg PO DAILY Qty: 30 5RF Discharge Orders: Discharge Order (Routine); Ordered 03/12/25 Ordered By: Malgorzata Nieto Diet: Advance to usual diet Activity on Discharge: As tolerated Stand Alone Forms: Patient Portal Discharge page Print Language: [place] Care Plan Goals: kidney health urinary health avoid constipation Health Concerns: acute/chronic kidney injury urinary retention fecal impaction/constipation Plan of Treatment: avoid NSAIDs like naproxen and ibuprofen recheck labs [basic metablic panel] in 1 [address] up [address] Dr Dowell [facility] avoid constipation; take stool softeners/laxatives Please follow up with your primary care doctor within 1 week. Return to the hospital if you experience recurrent or worsening symptoms. Assessment: See Discharge Summary.
--- NOTE | 2025-03-12 13:25 | MHC.CM.PN ---
pt is dcd today hvns is notified
--- NOTE | 2025-03-12 14:29 | P.PNIM_ITS ---
Subjective Subjective Date of Service: 03/12/25 Interval History: urinating on own, however PVR 300 cc SCr back to baseline Review of Systems Review of Systems: Yes all other systems are reviewed and are negative Physical Exam 2 Vital Signs: Vital Signs: Last Vital Signs Temp 97.4 F 03/12/25 07:54 Pulse 60 03/12/25 12:00 Resp 16 03/12/25 12:00 BP 105/53 L 03/12/25 12:00 Pulse Ox 95 03/12/25 12:00 O2 Del Method Room Air 03/12/25 12:00 BMI result Body Mass Index 30.8 Gen: in no acute distress HEENT: sclera anicteric, moist mucus membranes Neck: supple Lungs: clear to auscultation bilaterally Heart: regular rate and rhythm, no murmurs Abd: soft, non-tender, non-distended Ext: no edema Skin: warm/well-perfused Neuro: alert and oriented x3, no focal findings Psych: appropriate affect Objective Data Active Medications Acetaminophen (Acetaminophen 325 Mg Tablet) 975 mg PO Q6H PRN PRN Reason: Pain, Mild 1-3,fever,headache Amiodarone HCl (Amiodarone Hcl 200 Mg Tablet) 200 mg PO DAILY [facility] Last Admin: 03/12/25 08:52 Dose: 200 mg Documented By: MAYO Apixaban (Apixaban 2.5 Mg Tablet) 2.5 mg PO BID [facility] Last Admin: 03/12/25 08:52 Dose: 2.5 mg Documented By: MAYO Atorvastatin Calcium (Atorvastatin Calcium 10 Mg Tablet) 10 mg PO DAILY [facility] Last Admin: 03/12/25 08:52 Dose: 10 mg Documented By: MYAO Calcium Carbonate (Calcium Carbonate 750 Mg Tab.Chew) 750 mg PO Q4H PRN PRN Reason: Heartburn Cyanocobalamin (Cyanocobalamin (Vitamin B-12) 1,000 Mcg Tablet) 1,000 mcg PO DAILY [facility] Last Admin: 03/12/25 08:52 Dose: 1,000 mcg Documented By: MAYO Gabapentin (Gabapentin 300 Mg Capsule) 300 mg PO BEDTIME [facility] Last Admin: 03/11/25 22:03 Dose: 300 mg Documented By: DAV Magnesium Hydroxide (Milk Of Magnesia 30 Ml Oral.Susp) 30 ml PO DAILY PRN PRN Reason: Constipation Magnesium Oxide (Magnesium Oxide 400 Mg Tablet) 400 mg PO DAILY [facility] Last Admin: 03/12/25 08:52 Dose: 400 mg Documented By: MAYO Melatonin (Melatonin 3 Mg Tablet) 6 mg PO BEDTIME PRN PRN Reason: Insomnia Pt Own (Memantine 14 Mg Capsule,Sprinkle ,Er 24hr) 14 mg PO DAILY [facility] Last Admin: 03/12/25 08:53 Dose: 14 mg Documented By: MAYO Nystatin (Nystatin Powder 15 Gm Bottle) 1 appl TOPICAL DAILY PRN; Protocol PRN Reason: Rash Last Admin: 03/10/25 08:48 Dose: 1 appl Documented By: COLBURRadha Omeprazole (Omeprazole 20 Mg Capsule.) 20 mg PO DAILY@0630 [facility] Last Admin: 03/12/25 05:54 Dose: 20 mg Documented By: TRISTIN Sodium Chloride (0.9 % Sodium Chloride Flush 3 Ml Syringe) 3 ml IVFLUSH QSHIFT [facility] Last Admin: 03/12/25 08:52 Dose: 3 ml Documented By: MAYO Vitamin D (Cholecalciferol (Vitamin D3) 25 Mcg Tablet) 25 mcg PO DAILY [facility] Last Admin: 03/12/25 08:52 Dose: 25 mcg Documented By: MAYO Labs 03/10/25 05:58 03/12/25 07:55 Labs: Laboratory Results - last 24 hr 03/12/25 07:55 Hold Purple Top SEE NOTE Anion Gap 9 L Estim Creat Clear Calc 28.1 Estimated GFR 40 Random Glucose 72 Calcium 8.5 Assessment and Plan (1) STACI (acute kidney injury): Status: Acute Assessment and Plan: d4, 89yo F with CKD3b, pAF on Eliquis and s/p PPM, HFpEF, dementia, bladder CA s/p TURBT + chemotherapy, breast CA s/p lumpectomy, hx appendectomy/cholecystectomy, MARION presenting with 2 wk of constipation, found to have STACI/CKD3b prerenal STACI/CKD3b - Cr back at baseline after IV fluids acute urinary retention - PVR borderline at 300 cc; if 450cc+ place Rivera; needs Urology followup hypoK - repleted constipation/fecal impaction/proctitis - resolved after digital disimpaction, continue prn stool softeners acute lactic acidosis - due to dehydration, not sepsis pAF: amiodarone, apixaban GERD: PPI dementia: memantine HLD: statin HFpEF: not on diuretics, repleting volume VTE ppx: apixaban dispo: family concerned that pt unsafe to go home. Request psychiatry evaluation for capacity as well as OT evaluation for MOCA In my clinical judgment, the patient requires continued inpatient hospitalization for the following reasons: placement Total time managing care of this patient today: 35 minutes. Quality Stroke Does the patient have a stroke diagnosis?: No VTE Prior VTE?: No VTE Risk Level:: Medical - moderate - high VTE Device Contraindication: N/A - Device Ordered VTE Drug Contraindication: Treatment Not Indicated
--- NOTE | 2025-03-12 15:20 | MHC.CM.PN ---
pt dcd today with hvns
--- NOTE | 2025-03-12 16:31 | HO.WOUND ---
Wound Consult: Initial 89yr old?female admitted to [facility] [place]- See progress notes and H&P for detailed history.? Wound consult placed for buttock and inner thighs.? Patient agreeable to assessment and photo documentation.? Chart review reveals patient has elevated INR 1.5 and elevated platelets on admission. These two factors could be impacting skin pigmentation changes noted to coccyx, but at this time mostly consistent with pressure injury. 03/10/25 03/12/25 Coccyx Etiology: ?Deep Tissue Injury Measurements: 2 x 1.5cm x 0 cm Wound Bed: intact purple nonblanchable tissue Drainage / Odor: None Edges: ? well defined Lolis wound: red pink intact tissue small open area to left buttock consistent with friction - old injury suspected to left buttock ? No Induration, Fluctuance or Warmth noted Pain: paint reported to coccyx Goals of Treatment: ?off load pressure Q2hr turns and repositions. Recommendations: 1. Turn and Reposition every 2 hours and as needed for patient comfort.? Use pillows or wedges to support off loading positions. 2. Off Load all bony prominences with use of pillows and heel boots if needed.? Apply Preventative foams where needed. ? 3. Monitor for incontinence and moisture control, use barrier creams when needed for prevention and treatment. 4. Provide adequate and supplemental nutrition.? 5. Continue low air loss mattress. 6. When applicable maintain blood glucose levels per Providers order. Sacrum? - Off Load Pressure with Q2 hr turns and use of pillows - Routine cleansing.? Apply skin prep allow to dry.? Cover with foam dressing to aid in off loading and protection from friction. Change every 3 days and PRN. Re-consult wound care Nurse for wound deterioration or wound changes.
--- NOTE | 2025-03-12 22:18 | PC.NURSE ---
During 20:00 vitals pt's BP noted to be 102/48. BPs have been soft. Pt has no complaints at this time, asymptomatic. RAJ Leal notified via [facility]. Per RAJ Leal, encourage PO intake and continue to monitor.
[2025-03-13 04:00] VITALS: BP 101/49; PULSE 68; RESP 16; TEMP 36.2; O2SAT 95
[2025-03-13 06:00] VITALS: BMI 30.2
[2025-03-13 08:00] VITALS: BP 101/58; PULSE 77; RESP 18; TEMP 36.3; O2SAT 92
[2025-03-13] MEDS: 0.9 % Sodium Chloride Flush 3 ML SYRINGE IVFLUSH ×3 (09:25→20:48)
--- NOTE | 2025-03-13 09:46 | P.PNIM_ITS ---
Subjective Subjective Date of Service: 03/14/25 Interval History: Doing better Review of Systems Review of Systems: Yes all other systems are reviewed and are negative Physical Exam 2 Vital Signs: Vital Signs: Last Vital Signs Temp 97.3 F 03/13/25 08:00 Pulse 77 03/13/25 08:00 Resp 18 03/13/25 08:00 BP 101/58 L 03/13/25 08:00 Pulse Ox 92 03/13/25 08:00 O2 Del Method Room Air 03/13/25 08:00 BMI result Body Mass Index 30.2 Objective Data Active Medications Acetaminophen (Acetaminophen 325 Mg Tablet) 975 mg PO Q6H PRN PRN Reason: Pain, Mild 1-3,fever,headache Amiodarone HCl (Amiodarone Hcl 200 Mg Tablet) 200 mg PO DAILY [facility] Last Admin: 03/13/25 09:26 Dose: 200 mg Documented By: MAYO Apixaban (Apixaban 2.5 Mg Tablet) 2.5 mg PO BID [facility] Last Admin: 03/13/25 09:26 Dose: 2.5 mg Documented By: MAYO Atorvastatin Calcium (Atorvastatin Calcium 10 Mg Tablet) 10 mg PO DAILY [facility] Last Admin: 03/13/25 09:26 Dose: 10 mg Documented By: MAYO Calcium Carbonate (Calcium Carbonate 750 Mg Tab.Chew) 750 mg PO Q4H PRN PRN Reason: Heartburn Cyanocobalamin (Cyanocobalamin (Vitamin B-12) 1,000 Mcg Tablet) 1,000 mcg PO DAILY [facility] Last Admin: 03/13/25 09:26 Dose: 1,000 mcg Documented By: MAYO Gabapentin (Gabapentin 300 Mg Capsule) 300 mg PO BEDTIME [facility] Last Admin: 03/12/25 19:58 Dose: 300 mg Documented By: SMOOTH Magnesium Hydroxide (Milk Of Magnesia 30 Ml Oral.Susp) 30 ml PO DAILY PRN PRN Reason: Constipation Magnesium Oxide (Magnesium Oxide 400 Mg Tablet) 400 mg PO DAILY [facility] Last Admin: 03/13/25 09:26 Dose: 400 mg Documented By: MAYO Melatonin (Melatonin 3 Mg Tablet) 6 mg PO BEDTIME PRN PRN Reason: Insomnia Pt Own (Memantine 14 Mg Capsule,Sprinkle ,Er 24hr) 14 mg PO DAILY [facility] Last Admin: 03/13/25 09:26 Dose: 14 mg Documented By: MAYO Nystatin (Nystatin Powder 15 Gm Bottle) 1 appl TOPICAL DAILY PRN; Protocol PRN Reason: Rash Last Admin: 03/10/25 08:48 Dose: 1 appl Documented By: VIVEK Omeprazole (Omeprazole 20 Mg Capsule.) 20 mg PO DAILY@0630 [facility] Last Admin: 03/13/25 06:17 Dose: 20 mg Documented By: ANDRZEJ Sodium Chloride (0.9 % Sodium Chloride Flush 3 Ml Syringe) 3 ml IVFLUSH QSHIFT [facility] Last Admin: 03/13/25 09:25 Dose: 3 ml Documented By: MAYO Vitamin D (Cholecalciferol (Vitamin D3) 25 Mcg Tablet) 25 mcg PO DAILY [facility] Last Admin: 03/13/25 09:26 Dose: 25 mcg Documented By: MAYO Labs 03/10/25 05:58 03/14/25 05:53 Labs: Laboratory Results - last 24 hr 03/12/25 07:55 Hold Purple Top SEE NOTE Anion Gap 9 L Estim Creat Clear Calc 28.1 Estimated GFR 40 Random Glucose 72 Calcium 8.5 Assessment and Plan (1) STACI (acute kidney injury): Status: Acute Assessment and Plan: 89yo F with CKD3b, pAF on Eliquis and s/p PPM, HFpEF, dementia, bladder CA s/p TURBT + chemotherapy, breast CA s/p lumpectomy, hx appendectomy/cholecystectomy, MARION presenting with 2 wk of constipation, found to have STACI/CKD3b prerenal STACI/CKD3b - Cr back to baseline after IV fluids acute urinary retention - PVR borderline at 300 cc; if 450cc+ place Rivera; needs Urology followup hypoK - repleted constipation/fecal impaction/proctitis - resolved after digital disimpaction, continue prn stool softeners acute lactic acidosis - due to dehydration, not sepsis pAF: amiodarone, apixaban GERD: PPI dementia: memantine HLD: statin HFpEF: not on diuretics, repleting volume VTE ppx: apixaban dispo: family concerned that pt unsafe to go home. Request psychiatry evaluation for capacity as well as OT evaluation for MOCA In my clinical judgment, the patient requires continued inpatient hospitalization for the following reasons: placement Total time managing care of this patient today: 35 minutes. Quality Stroke Does the patient have a stroke diagnosis?: No VTE Prior VTE?: No VTE Risk Level:: Medical - moderate - high VTE Device Contraindication: N/A - Device Ordered VTE Drug Contraindication: Treatment Not Indicated
--- NOTE | 2025-03-13 10:25 | MHC.CM.PN ---
waiting on capacity for pt for competeionof dc plannuing
[2025-03-13 10:44] LABS: Anion Gap 9 (12-20); Blood Urea Nitrogen 23 mg/dL (9-16); Calcium 8.3 mg/dL (8.4-10.2); Carbon Dioxide 28 mmol/L (22-29); Chloride 106 mmol/L (96-108); Creatinine Clr Calc Pharmacy 23.0; Estimated Glomerular Filt Rate 32; Potassium 3.9 mmol/L (3.3-5.1); Sodium 139 mmol/L (135-145)
[2025-03-13 12:00] VITALS: BP 109/56; PULSE 67; RESP 18; TEMP 36.9; O2SAT 97
--- NOTE | 2025-03-13 14:56 | MHC.CM.PN ---
pt receommending str referrals made
[2025-03-13 15:24] VITALS: BP 100/51; PULSE 62; RESP 18; TEMP 36.6; O2SAT 95
--- NOTE | 2025-03-13 15:25 | MHC.CM.PN ---
pt recepmmende str pt and hcp agreeable to str dc today to [facility]
--- NOTE | 2025-03-13 15:54 | MHC.CM.PN ---
md aretha malik nathaly tomorrow wants to watch kidney funcion hcp aware
--- NOTE | 2025-03-13 16:04 | P.CNPS_ITS ---
History of Present Illness Date of Service: 03/13/2025 Chief Complaint: acute kidney injury Reason for Consult: capacity to care for herself. Requesting physician: Abelino Garza Discussed with referring provider: Yes Sources of Information: patient interviewed, chart reviewed and crisis/core team assessment reviewed HPI Narrative: Ms. Dickinson is an 89 year-old woman with hx of dementia who was admitted to medical floor due to acute on chronic renal disease. Psychiatry has been asked to assess patient given concerns raised from family in terms of her ability to live on her own. This sheet writer spoke with Ms. Fischer's HCP, Yadi Irwin ([phone]) who reports in the past year pt has lost about 100Lbs, some part to poor appetite but others due to forgetfulness in that Yadi reports that patient has meals on wheels and when she comes to see her pt reports she has not had food as there is no food without realizing that there is food in the fridge. Yadi reports when food is brought to her she eats but clearly appetite is poor. Yadi reports patient forgets taking night time medications. Pt reports she has [facility]NA that sets up pill box but still patient forgets to take them as prescribed consistently. Yadi also tells this sheet writer that Mrs. Fischer has had multiple falls. Yadi worries that patient may need more assistance and is not safe alone at home. Pt seen in the room. She is lying in bed, in no acute distress. Pt reports she is doing well. When this sheet writer asked about concerns that Yadi reported, pt does report that she forgets to take medications sometimes but otherwise that she does not have any concerns about taking them as prescribed. She reports her appetite is poor. She also has some degree of awareness that there have been incidents when Yadi has come to visit her and reminded her that she had food. She also notes that she does have frequent falls. When asked about understanding of this admission, pt reports she is not sure why PT would recommend STR. She does know the month, year, date and place but some difficulties recounting reasons for medical admission. However, she has agreed to go STR at this point. MOCA was completed by OT scored 21/30 with most impairments in visuospatial skills and delayed recall, language fluency. She had intact orientation, naming, executive function. Medical Evaluation Reviewed: Yes [facility] Medical History Dementia Paroxysmal atrial fibrillation Acute diastolic (congestive) heart failure Persistent atrial fibrillation Multinodular goiter (nontoxic) Pedal edema Removal of staple Visit for suture removal Complicated urinary tract infection Dysphagia Screening for breast cancer Abnormal ultrasound of breast Abnormal mammogram of left breast Multiple falls Physical deconditioning Breast cancer, left Breast cancer Chronic renal insufficiency Cardiac pacemaker in situ AV block Leg edema Screening for diabetes mellitus On beta jake at home Arthritis Vertigo MARIELA (obstructive sleep apnea) Sick sinus syndrome Peripheral vascular disease Menieres disease Urinary bladder cancer Obesity Gout GERD (gastroesophageal reflux disease) Hypercholesterolemia Surgical History History of lumpectomy of left breast (03/10/23) History of esophagogastroduodenoscopy (EGD) S/P cardiac pacemaker procedure Hx of colonoscopy History of cystoscopy S/P MARION-BSO (total abdominal hysterectomy and bilateral salpingo-oophorectomy) History of cataract surgery History of knee replacement History of tonsillectomy History of appendectomy History of cholecystectomy Diagnostics Vital Signs (24Hr): Vital Signs - 24 hr 03/12/25 20:00 03/12/25 23:52 03/13/25 04:00 Temperature 96.9 F 97.4 F 97.2 F Pulse Rate 60 77 68 Respiratory Rate 16 16 16 Blood Pressure 102/48 L 129/56 L 101/49 L Pulse Oximetry 98 96 95 Oxygen Delivery Method Room Air Room Air Room Air 03/13/25 08:00 03/13/25 12:00 03/13/25 15:24 Temperature 97.3 F 98.4 F 97.8 F Pulse Rate 77 67 62 Respiratory Rate 18 18 18 Blood Pressure 101/58 L 109/56 L 100/51 L Pulse Oximetry 92 97 95 Oxygen Delivery Method Room Air Room Air Room Air BMI result Body Mass Index 30.2 Labs 03/10/25 05:58 03/13/25 10:11 Labs: Laboratory Results - last 48 hr 03/12/25 03/13/25 07:55 10:11 Hold Purple Top SEE NOTE SEE NOTE Sodium 141 139 Potassium 3.9 3.9 Chloride 107 106 Carbon Dioxide 29 28 Anion Gap 9 L 9 L BUN 26 H 23 H Creatinine 1.27 1.54 H Estim Creat Clear Calc 28.1 23.0 Estimated GFR 40 32 Random Glucose 72 120 H Calcium 8.5 8.3 L Mental Status Exam Mental Status Exam Narrative: Appearance: wearing hospital gown, thin, in NAD Behavior: cooperative and friendly Psychomotor: no agitation or retardation noted Speech: clear, normal rate/rhythm/volume, spontaneous TP: linear TC: hoping to go home soon Mood: okay Affect: congruent VH/AH: none Delusions: none Insight/judgment: poor x 2. may be impaired s/s to cognition. Memory/cog: alert, oriented to place, months, year and date. vague about orientation to medical situation. Medications Medications Current Medications Acetaminophen (Acetaminophen 325 Mg Tablet) 975 mg PO Q6H PRN PRN Reason: Pain, Mild 1-3,fever,headache Amiodarone HCl (Amiodarone Hcl 200 Mg Tablet) 200 mg PO DAILY [facility] Last Admin: 03/13/25 09:26 Dose: 200 mg Apixaban (Apixaban 2.5 Mg Tablet) 2.5 mg PO BID [facility] Last Admin: 03/13/25 09:26 Dose: 2.5 mg Atorvastatin Calcium (Atorvastatin Calcium 10 Mg Tablet) 10 mg PO DAILY [facility] Last Admin: 03/13/25:26 Dose: 10 mg Calcium Carbonate (Calcium Carbonate 750 Mg Tab.Chew) 750 mg PO Q4H PRN PRN Reason: Heartburn Cyanocobalamin (Cyanocobalamin (Vitamin B-12) 1,000 Mcg Tablet) 1,000 mcg PO DAILY [facility] Last Admin: 03/13/25 09:26 Dose: 1,000 mcg Gabapentin (Gabapentin 300 Mg Capsule) 300 mg PO BEDTIME [facility] Last Admin: 03/12/25 19:58 Dose: 300 mg Magnesium Hydroxide (Milk Of Magnesia 30 Ml Oral.Susp) 30 ml PO DAILY PRN PRN Reason: Constipation Magnesium Oxide (Magnesium Oxide 400 Mg Tablet) 400 mg PO DAILY [facility] Last Admin: 03/13/25:26 Dose: 400 mg Melatonin (Melatonin 3 Mg Tablet) 6 mg PO BEDTIME PRN PRN Reason: Insomnia Pt Own (Memantine 14 Mg Capsule,Sprinkle ,Er 24hr) 14 mg PO DAILY [facility] Last Admin: 03/13/25 09:26 Dose: 14 mg Nystatin (Nystatin Powder 15 Gm Bottle) 1 appl TOPICAL DAILY PRN; Protocol PRN Reason: Rash Last Admin: 03/10/25 08:48 Dose: 1 appl Omeprazole (Omeprazole 20 Mg Capsule.Dr) 20 mg PO DAILY@0630 [facility] Last Admin: 03/13/25 06:17 Dose: 20 mg Sodium Chloride (0.9 % Sodium Chloride Flush 3 Ml Syringe) 3 ml IVFLUSH QSHIFT [facility] Last Admin: 03/13/25 15:23 Dose: 3 ml Vitamin D (Cholecalciferol (Vitamin D3) 25 Mcg Tablet) 25 mcg PO DAILY [facility] Last Admin: 03/13/25 09:26 Dose: 25 mcg Allergies Allergies Allergy/AdvReac Type Severity Reaction Status Date / Time No Known Allergies (No Known Allergy Verified 03/08/25 12:27 Allergies*) Assessment & Plan Assessment & Plan (1) Encounter for assessment of decision-making capacity: Status: Acute Code(s): Z00.8 - Encounter for other general examination Plan Mrs. Fischer is an 89 year-old woman with hx of dementia who was admitted for STACI on chronic CKD. Psychiatry asked to assess capacity to care for herself. Yadi, who is pt's niece and HCP reports number of concerns which pts agree are a problem but may minimize impact on her overall safety including forgetting to take medications from pill box that [facility] leaves for her for the week. Although she does have poor appetite, oral intake seems worsened by forgetting that there may be food brought by meals on wheels. MOCA does not show extend of impairment but shows moderate impairments with a score of 21/30. Spoke with HCP to continue assessing patient in the community while she steps down to [facility] and completing further assessment like ACL. Pt does have difficulty retaining information and clinical information should be conveyed to her HCP as well as pt may not be able to retain gage medical information about her care. Total time managing care of this patient today ____ minutes.
[2025-03-13 19:28] VITALS: BP 133/61; PULSE 62; RESP 18; TEMP 36.8; O2SAT 95
[2025-03-13 23:13] VITALS: BP 104/66; PULSE 61; RESP 18; TEMP 36.8; O2SAT 95
[2025-03-14 03:37] VITALS: BP 119/58; PULSE 61; RESP 18; TEMP 36.8; O2SAT 93
--- NOTE | 2025-03-14 03:50 | PC.NURSE ---
Pt urinated 275ml in the bathroom. Pt has hx of retention. Post void bladder scan: 19ml.
[2025-03-14 05:53] VITALS: BMI 27.1
[2025-03-14 06:33] LABS: Anion Gap 9 (12-20); Blood Urea Nitrogen 22 mg/dL (9-16); Calcium 8.5 mg/dL (8.4-10.2); Carbon Dioxide 28 mmol/L (22-29); Chloride 108 mmol/L (96-108); Creatinine Clr Calc Pharmacy 22.8; Estimated Glomerular Filt Rate 34; Potassium 4.2 mmol/L (3.3-5.1); Sodium 141 mmol/L (135-145)
[2025-03-14 08:00] VITALS: BP 110/56; PULSE 60; RESP 18; TEMP 36.2; O2SAT 92
[2025-03-14] MEDS: 0.9 % Sodium Chloride Flush 3 ML SYRINGE IVFLUSH (09:43)
--- NOTE | 2025-03-14 11:35 | MHC.CM.PN ---
IMM 03/14/25 Discharge to [facility] via BLS. All dc info sent to the SNF.
[2025-03-14 12:00] VITALS: BP 105/53; PULSE 65; RESP 18; TEMP 36; O2SAT 95
[2025-03-14 15:40] VITALS: BP 105/52; PULSE 67; RESP 16; TEMP 36.2
[2025-03-14 17:49] VITALS: BP 120/57; PULSE 64; RESP 18; TEMP 36.6; O2SAT 97
--- OUTSIDE RECORDS SUMMARY | 2025-03-15 19:00 | XMS_ITS | Clinical Summary ---
Author Organization Unknown Care Team Providers Care Private Client Advisor Name Role Phone PREETHI HARDEN, MARCUS Unavailable Unavailable ANUJA RN, CARRIE Unavailable Unavailable ROLAND IND[employer]RIAL CONTROLLER, KWESI Unavailable Unavailable FELECIA FOLEY LPN, MANNY Unavailable Toneyi labchidi Payers Payer Name Policy Type Policy Number Effective Date Expira tion Date MEDICARE - [facility] [place] - [facility] [id number] Problems Condition Name Condition Details Condition Category [...] [BMI] 28.0-28.9, ADULT Active 04-12 00:00: 00 [facility] (CURRENT) USE OF ANTICOAGULAN TS Active 04-12 [...] 2024-04 00:00: 00 01-16 00:00 :00 No [id number] Per instruc tions Per instructio ns (route: oral) Med Classific ation: Hematolog ical Agents spironolact one 25 mg tablet 12-28 00:00: 00 01-16 00:00 :00 No [id number] Per instruc tions TWICE DAILY Per instructio ns TWICE DAILY (route: oral) Med Classific ation: Cardiovas cular Therapy Agents amiodarone 200 mg tablet 12-23 00:00: 00 01-16 00:00 :00 No [id number] Per instruc tions DAILY Per instructio ns DAILY (route: oral) Med Classific ation: Cardiovas cular Therapy Agents amiodarone 200 mg tablet 2024-04 00:00: 00 Yes [id number] 1 tablet DAILY 1 tablet DAILY (route: oral) Med Classific ation: Cardiovas cular Therapy Agents bumetanide 1 mg tablet 2024-04 00:00: 00 Yes [id number] 1 tablet 2 TIMES DAILY 1 tablet 2 TIMES DAILY (route: oral) Med Classific ation: Cardiovas cular Therapy Agents cholecalcif sean (vitamin D3) 25 mcg (1,000 unit) capsule 2024-04 00:00: 00 Yes [id number] 1 capsule DAILY 1 capsule DAILY (route: oral) Med Classific ation: Electroly te Balance-N utritiona l Products coenzyme Q10 100 mg tablet 2024-04 00:00: 00 Yes [id number] 1 tablet DAILY 1 tablet DAILY (route: oral) Med Classific ation: Alternati ve Therapy cyanocobala min (vit B-12) 1,000 mcg tablet 2024-04 00:00: 00 Yes [id number] 1 tablet DAILY 1 tablet DAILY (route: oral) Med Classific ation: Electroly te Balance-N utritiona l Products Eliquis 5 mg tablet 2024-04 00:00: 00 Yes [id number] 0.5 tablet 2 TIMES DAILY 0.5 tablet 2 TIMES DAILY (route: oral) Med Classific ation: Hematolog ical Agents gabapentin 300 mg capsule 2024-04 00:00: 00 Yes [id number] 1 capsule DAILY 1 capsule DAILY (route: oral) Med Classific ation: Central Nervous System Agents magnesium 400 mg (as magnesium oxide) tablet 2024-04 0 00:00: 00 Yes [id number] 1 tablet DAILY 1 tablet DAILY (route: oral) Med Classific ation: Electroly te Balance-N utritiona l Products meclizine 25 mg tablet 2024-04 0 00:00: 00 Yes [id number] 1 tablet NEEDED 1 tablet NEEDED (route: oral) Med Classific ation: Gastroint estinal Therapy Agents memantine 14 mg capsule sprinkle,ex tended release 24hr 2024-04 00:00: 00 Yes [id number] 1 capsule DAILY 1 capsule DAILY (route: oral) Med Classific ation: Cognitive Disorder Therapy mineral oil enema 2024-04 00:00: 00 Yes [id number] Per instruc tions NEEDED Per instructio ns NEEDED (route: rectal) Med Classific ation: Gastroint estinal Therapy Agents nystatin 1 billion unit powder 2024-04 00:00: 00 Yes [id number] Per instruc tions NEEDED Per instructio ns NEEDED (route: miscellane ous) Med Classific ation: Anti-Infe ctive Agents omeprazole 20 mg capsule,del ayed release 2024-04 00:00: 00 Yes [id number] 1 capsule DAILY 1 capsule DAILY (route: oral) Med Classific ation: Gastroint estinal Therapy Agents Restasis MultiDose 0.05 % eye drops 2024-04 00:00: 00 Yes [id number] 1 drops 2 TIMES DAILY 1 drops 2 TIMES DAILY (route: ophthalmic (eye)) Med Classific ation: Ophthalmi c Agents simvastatin 20 mg tablet 2024-04 00:00: 00 Yes [id number] 1 tablet BEDTIME 1 tablet BEDTIME (route: oral) Med Classific ation: Cardiovas cular Therapy Agents spironolact one 25 mg tablet 2024-04 00:00: 00 Yes [id number] 1 tablet 2 TIMES DAILY 1 tablet [...] MAINTAIN SITUATIONAL AWARENESS AND WILL NOTIFY CLINICAL VASCULAR PHYSICIAN AND PHYSICIAN/PROVIDER WITH ANY CHANGE IN CONDITION. [code = SKILLED NURSE TO PERFORM ENVIRONMENTAL SAFETY RISK ASSESSMENT AND FALL RISK ASSESSMENT AND PROVIDE INSTRUCTION TO IMPLEMENT ENVIRONMENTAL SAFETY AND FALL PREVENTION STRATEGIES THROUGHOUT THE CERTIFICATION PERIOD. SKILLED NURSE WILL MAINTAIN SITUATIONAL AWARENESS AND WILL NOTIFY CLINICAL VASCULAR PHYSICIAN AND PHYSICIAN/PROVIDER WITH ANY CHANGE IN CONDITION.] [...] CARE WILL BE ESTABLISHED THAT MEETS PATIENT'S CARE HOME NEEDS AND INCLUDES PATIENT GOAL FOR HOME [...] BY THE END OF THE CERTIFICATION PERIOD. Progress Notes Progress Notes <paragraph>[Visit Date: 2024 by MANNY FOLEY LPN]:</paragraph><paragraph>SNV 11/25</paragraph><paragraph></paragraph><paragraph>ABNORMAL VITALS: WDL</paragraph><paragraph></paragraph><paragraph>FALLS: NO RECENT FALLS </paragraph><paragraph></paragraph><paragraph>MEDICATION CHANGES: NONE </paragraph><paragraph></paragraph><paragraph>OBSERVATION AND ASSESSMENT PROVIDED: PATIENT IS ALERT AND ORIENTED X3, VERY FORGETFUL, PLEASANT AND COOPERATIVE DURING VISIT. SISTER, JAYJAY, IS ALSO PRESENT DURING VISIT. PATIENT REPORTS RECTAL DISCOMFORT WHEN SITTING. NO VISIBLE OPEN AREAS OR BRUISING ON LOWER BACK/SACRUM OR BUTTOCK AREA. PATIENT UNSURE OF LBM, ATTEMPTED TO HAVE A BM DURING SNV WITH NO RESULTS. PATIENT HAS DRIED PRUNES AND PRUNE JUICE IN HOME BUT INCONSISTENT WITH USE. PATIENT IS COMPLIANT WITH MORNING MEDICATIONS, PM MEDS REMAIN IN MEDIPLANNER, DESPITE REMINDERS FROM LACIE DEVICE AND SISTER CALLING. PREFILLED MEDIPLANNER, SISTER ABLE AND WILLING TO PREFILL MEDIPLANNER UPON DISCHARGE. MEDICATIONS REVIEWED, NO CHANGES. VSS, LSCTA, SKIN IS CLEAN DRY AND INTACT, ADVISED DAILY MOISTURIZING LOTION TO BLE TO PREVENT SKIN CRACKING. REVEWED PLAN TO DISCHARGE, PT AND SISTER/POA IN AGREEMENT. NOMNOC SIGNED. DISCUSSED ONE MORE VISIT FOR DISCHARGE. CALENDAR REVIEWED, NURSE TO CALL THE DAY PRIOR TO CONFIRM VISIT TIME. </paragraph><paragraph></paragraph><paragraph>EDUCATION: REVIEWED MEDICATION COMPLIANCE. CONSTIPATION PREVENTION AND TREATMENT; WARM PRUNE JUICE, HIGH FIBER DIET, INCREASE H2O HYDRATION. SAFETY, WEARING PROPER FITTING FOOTWEAR TO AMBULATE. PTS SISTER RECEPTIVE TO INFORMATION AND VERBALIZED UNDERSTANDING. </paragraph><paragraph></paragraph><paragraph>INTERVENTIONS NEEDED AT NEXT VISIT: DISCHARGE </paragraph><paragraph></paragraph><paragraph>COMMUNICATION WITH MD: N.A</paragraph><paragraph></paragraph><paragraph>PT AND CAREGIVER INSTRUCTED TO CALL NATASHA SOTO WITH ANY QUESTIONS OR CONCERNS AND/OR CHANGES IN CONDITION. </paragraph><paragraph></paragraph><paragraph>MANNY FOLEY LPN</paragraph> Encounters Start Date/Time End Date/Time Encounter Type Admission Type Attending [facility] Care Facility Care Department Encounter ID Discharge Date Discharge Status Discharge Condition Discharge Reason Percent Goals Met 2025-01-16 00:00:00 2025-03-16 00:00:00 Outpatient NEW ADMISSION CARRIE LICEA [facility] [id number] 73.81
== END 2025-03-14 18:03 | disposition skilled nursing facility (03) | DRG 389 ==
LOC: HO.ED 03-09 01:08 → HO.EDOVER 03-09 01:11 → HO.S3 03-09 07:38
PROVIDERS: Family Medicine; Nurse Practitioner Family; Physician Assistant; Physician Assistant Medical; Admitting Provider Internal Medicine; Emergency Provider Emergency Medicine; PCP Internal Medicine; Visit Provider Internal Medicine
DX: K56.41 Fecal impaction (principal); E87.21 Acute metabolic acidosis; N17.9 Acute kidney failure, unspecified; I50.32 Chronic diastolic (congestive) heart failure; K62.89 Other specified diseases of anus and rectum; I48.0 Paroxysmal atrial fibrillation; N18.32 Chronic kidney disease, stage 3b; E86.0 Dehydration; E78.5 Hyperlipidemia, unspecified; R33.9 Retention of urine, unspecified; F03.90 Unspecified dementia, unspecified severity, without behavioral disturbance, psychotic disturbance, mood disturbance, and anxiety; Z95.0 Presence of cardiac pacemaker; Z87.891 Personal history of nicotine dependence; Z79.01 Long term (current) use of anticoagulants; Z79.899 Other long term (current) drug therapy
CPT/HCPCS: 36415; 74176; 80048; 80053; 81001; 81003; 82550; 83605; 83690; 83735; 84100; 85025; 85027; 85610; 87040; 97163; 97166; 97530; 99285; J2543; J7120

== ENCOUNTER → 2025-03-08 12:47 | Outpatient (BNV) | payer MEDICARE, SELFPAY | PROVIDERS: Emergency Provider Emergency Medicine; PCP Internal Medicine; Visit Provider Radiology Diagnostic Radiology | DX: K62.89 Other specified diseases of anus and rectum (principal); N32.89 Other specified disorders of bladder | CPT/HCPCS: 74176 ==

== ENCOUNTER → 2025-03-09 01:01 | Outpatient (BNV) | payer MEDICARE, SELFPAY | PROVIDERS: Admitting Provider Internal Medicine; Emergency Provider Emergency Medicine; PCP Internal Medicine; Visit Provider Social Worker | DX: F03.90 Unspecified dementia, unspecified severity, without behavioral disturbance, psychotic disturbance, mood disturbance, and anxiety (principal); Z13.30 Encounter for screening examination for mental health and behavioral disorders, unspecified | CPT/HCPCS: 99222 ==

== ENCOUNTER → 2025-03-09 01:01 | Outpatient (BNV) | payer MEDICARE, SELFPAY | PROVIDERS: Admitting Provider Internal Medicine; Emergency Provider Emergency Medicine; PCP Internal Medicine; Visit Provider Internal Medicine | DX: N17.9 Acute kidney failure, unspecified (principal) | CPT/HCPCS: 99232 ==

== ENCOUNTER 2025-03-22 23:32 | Inpatient (IN) | payer MEDICARE, SELFPAY ==
--- NOTE | 2025-03-22 23:50 | ECG_ITS ---
Test Reason : weakness Blood Pressure : */* mmHG Vent. Rate : 66 BPM Atrial Rate : 66 BPM P-R Int : 238 ms QRS Dur : 178 ms QT Int : 518 ms P-R-T Axes : * 257 70 degrees QTcB Int : 543 ms AV dual-paced rhythm with prolonged AV conduction Abnormal ECG When compared with ECG of 15-Jul-2024 14:27, Vent. rate has increased by 12 bpm Referred By: Albina Cabrera Electronically Signed By: ЕКАТЕРИНА PIERCE MD
--- NOTE | 2025-03-22 23:52 | ED.GENADULT ---
HPI - General Adult General Chief complaint: Weakness Stated complaint: weakness/falls Time Seen by Provider: 03/22/25 23:36 Source: patient and EMS Mode of arrival: EMS Limitations: no limitations History of Present Illness ED Provider: Dr. Albina Cabrera HPI narrative: Patient comes to the emergency room via ambulance from home. Patient was recently discharged approximately 9 days ago from this hospital from the inpatient floor. According to EMS, the patient went to rehab. Family state that the patient was in bed all the time in rehab, was really never were able to work out with physical therapy, patient was weak the whole time, then they discharged her home. When patient got home, patient tried going to the bathroom wheezing her walker and ended up falling in her buttocks. Patient states that she did not hit her head or lost consciousness, patient does take Eliquis for atrial fibrillation. Patient states that at this time, she has no pain in her head neck back or buttocks. Patient states that she is feels overall weak. Related Data Home Medications ?Medication ?Instructions ?Recorded ?Confirmed cholecalciferol (vitamin D3) 25 25 mcg PO DAILY 03/11/20 03/09/25 mcg (1,000 unit) capsule coenzyme Q10 100 mg capsule (Co 100 mg PO DAILY 03/11/20 03/09/25 Q-10) cyclosporine 0.05 % eye drops in a 1 drp ophthalmic (eye) BID 07/15/24 03/09/25 dropperette (Restasis) nystatin 100,000 unit/gram topical 1 appl topical DAILY PRN Rash 03/09/25 03/09/25 powder Previous Rx's ?Medication ?Instructions ?Recorded simvastatin 20 mg tablet 20 mg PO BEDTIME #90 tabs 10/15/23 cyanocobalamin (vitamin B-12) 1,000 mcg PO DAILY #90 caps 04/19/24 1,000 mcg capsule gabapentin 300 mg capsule 300 mg PO BEDTIME #90 caps 05/04/24 amiodarone 200 mg tablet 200 mg PO DAILY #30 tabs 10/24/24 omeprazole 20 mg capsule,delayed 20 mg PO DAILY@0630 #90 caps 11/06/24 release magnesium oxide 400 mg (241.3 mg 400 mg PO DAILY #30 tabs 12/05/24 magnesium) tablet apixaban 2.5 mg tablet 2.5 mg PO BID #60 tabs 01/15/25 polyethylene glycol 3350 17 gram 17 g PO DAILY #30 ea 03/12/25 oral powder packet (Miralax) sennosides 8.6 mg-docusate sodium 1 tab-cap PO BID #60 tabs 03/12/25 50 mg tablet memantine 14 mg capsule 14 mg PO DAILY #30 caps 03/15/25 sprinkle,extended release 24hr Allergies Allergy/AdvReac Type Severity Reaction Status Date / Time No Known Allergies (No Known Allergy Verified 03/22/25 23:58 Allergies*) Review of Systems Review of Systems: Constitutional : No Weight loss, No Fever, No Chills, No Night Sweats, complaining of fatigue and weakness ENT/Mouth : No Hearing loss, No Ear Pain, No Nasal Congestion, No Sinus Pain, No Hoarseness, No sore throat, No Rhinorrhea, No Swallowing Difficulty Eyes: No Eye Pain, No Swelling, No Redness, No Foreign Body, No Discharge, No Vision Changes Cardiovascular : No Chest Pain, No SOB, No Dyspnea on Exertion, No Orthopnea, No Edema, No Palpitations Respiratory : No Cough, No Sputum, No Wheezing, No Smoke Exposure, No Dyspnea Gastrointestinal : No Nausea, No Vomiting, No Diarrhea, No Constipation, No abdominal Pain, No Hematochezia, No Melena Genitourinary : no irregular bleeding, No Dysuria, No Urinary Frequency, No Hematuria, No Urinary Incontinence, No Urgency, No Flank Pain, No Urinary Flow Changes, No Hesitancy Musculoskeletal : Complaining of generalized weakness Skin : No Skin Lesions, No rash Neuro : No Weakness, No Numbness, No Paresthesias, No Loss of Consciousness, No Dizziness, No Headache Psych : No Anxiety/Panic, No Depression, No SI/HI/AH/VH, No Social Issues, Heme/Lymph: No Bruising, No Bleeding,No Lymphadenopathy Endocrine : No Polyuria, No Polydipsia, No Temperature Intolerance PMFSH Past Medical History Medical History Dementia Paroxysmal atrial fibrillation Acute diastolic (congestive) heart failure Persistent atrial fibrillation Multinodular goiter (nontoxic) Pedal edema Removal of staple Visit for suture removal Complicated urinary tract infection Dysphagia Screening for breast cancer Abnormal ultrasound of breast Abnormal mammogram of left breast Multiple falls Physical deconditioning Breast cancer, left Breast cancer Chronic renal insufficiency Cardiac pacemaker in situ AV block Leg edema Screening for diabetes mellitus On beta jake at home Arthritis Vertigo MARIELA (obstructive sleep apnea) Sick sinus syndrome Peripheral vascular disease Menieres disease Urinary bladder cancer Obesity Gout GERD (gastroesophageal reflux disease) Hypercholesterolemia Surgical History History of lumpectomy of left breast (03/10/23) History of esophagogastroduodenoscopy (EGD) S/P cardiac pacemaker procedure Hx of colonoscopy History of cystoscopy S/P MARION-BSO (total abdominal hysterectomy and bilateral salpingo-oophorectomy) History of cataract surgery History of knee replacement History of tonsillectomy History of appendectomy History of cholecystectomy Family History Family History Father Stroke Mother Heart disease Social History Social History Household Members: None Housing: Apartment Are you a primary insurance healthcare consultant to a significant other at home: No Do you presently have visiting nurse or other home services: Yes (occasional SOCIAL MEDIA MARKETING ANALYST) Alcohol intake: never Comment: patient refusing alarms Patient Tobacco Use Status: Former Tobacco user Tobacco use type: Cigarette Smoked in Last 30 Days: No e-Cigarette/Vaping Use: Never Used Second Hand Smoke Exposure: No Use of substances other than those prescribed or required for medical reasons: No Advance Directives: Yes Advance Directives on File: Yes Advance Directives Date on File: 09/15/21 Do you have a plan to hurt others: No Plan service: No Current occupational status: retired Cognitive needs: No Hearing needs: Yes Vision needs: Yes Physical Exam ED Exam Exam: Appearance: Alert. Oriented X3. No acute distress. Eyes: Pupils equal, round and reactive to light. ENT: Pharynx normal. Neck: Normal inspection. Neck supple. No lymph nodes noted. No crepitus CVS: Normal heart rate and rhythm. Pulses normal. Normal S1 and S2 Respiratory: No respiratory distress. Breath sounds normal. No Wheezing. No rales Abdomen: Soft and nontender. No rigidity. No distention. Skin: Skin warm and dry. Normal skin color. Normal skin turgor. No obvious ecchymosis in the buttocks. Patient's seems to have a small stage I pressure ulcer in the gluteal cleft Extremities: No lower extremity edema. No Lacerations. No Rash Neuro: Oriented X 3. No motor deficit. No sensory deficit. Moving all extremities. No slurred speech. CN 2 through 12 grossly intact Psych: calm, cooperative, normal affect Vital Signs: Vital Signs - 24 hr 03/22/25 23:57 03/23/25 06:39 Temperature 97.6 F 97.5 F Pulse Rate 69 76 Respiratory Rate 12 20 Blood Pressure 125/50 L 128/67 Pulse Oximetry 99 99 Oxygen Delivery Method Room Air Room Air BMI result Body Mass Index 29.5 Course Course Course Narrative: We will obtain blood work again, urinalysis. Overall, patient can not return home by herself. Patient is too weak Medications Administered Discontinued Medications Generic Name Dose Route Start Last Admin Trade Name Freq PRN Reason Stop Dose Admin Sodium Chloride 1,000 mls @ 999 mls/hr 03/23/25 02:23 03/23/25 04:15 Ns IVCONT 03/23/25 03:23 Infused .Q1H1M ONE Infusion Medical Decision Making Medical Decision Making [facility] Narrative: My interpretation of EKG: Dual paced rhythm, heart rate 66, no ST segment depression or elevation, QTC 543 My interpretation of labs: Patient's white blood cell count 16.7, today patient's hemoglobin slightly a bit decreased 11.6, magnesium normal, serology negative for influenza RSV and COVID Patient has not been able to provide a urine sample yet, patient being straight cath. After IV fluids, patient's creatinine did not improve much, no 2.1. Still not at baseline. Also, patient has a UTI. Patient was given IV ceftriaxone. Patient is not septic. Patient's blood pressure 128/67, heart rate 76, temperature 97.5 degrees I discussed the patient with our hospitalist team, patient being admitted Differential Diagnosis Differential Diagnoses: The differential diagnosis associated with the presentation includes (Acute dehydration, STACI, feel to thrive) Admission/Observation Consideration of admission/observation: Escalation of care including admission/observation considered Consult Healthcare Provider Management of the patient was discussed with: Hospitalist Lab Data [facility] Lab Attestation statement: I reviewed the patient's lab results. 03/23/25 01:15 03/23/25 04:50 Labs: Lab Results 03/23/25 03/23/25 03/23/25 Range/Units 01:15 04:50 06:42 WBC 16.7 H (4.8-10.8) X10*3/uL RBC 3.97 L (4.20-5.50) X10*6/uL Hgb 11.6 L (12.0-16.0) g/dl Hct 36.4 L (37.0-47.0) % MCV 91.7 (80.0-98.0) fL MCH 29.2 (27.0-33.0) pg MCHC 31.9 (31.0-35.0) g/dl RDW 16.0 (11.0-16.0) % Plt Count 361 (160-400) X10*3/uL MPV 9.2 L (9.4-12.3) fL Immature Gran % (Auto) 0.5 H (0.0-0.4) % Neut % (Auto) 88.8 H (45-73) % Lymph % (Auto) 4.5 L (20-40) % [place] % (Auto) 5.6 (2-11) % Eos % (Auto) 0.2 (0-4) % Baso % (Auto) 0.4 (0-2) % Lymph # (Auto) 0.8 L (1.2-4.9) X10*3/uL [place] # (Auto) 0.9 (0.1-1.2) X10*3/uL Eos # (Auto) 0.0 (0.0-0.4) X10*3/uL Baso # (Auto) 0.1 (0.0-0.2) X10*3/uL Abs Immat Gran (auto) 0.08 H (0.00-0.03) X10*3/uL Absolute Neuts (auto) 14.9 H (2.0-8.3) x10*3/uL Absolute Nucleated RBC 0.000 (0.0-0.012) X10*3/uL Nucleated RBC % (auto) 0.0 (0.0-0.2) /100WBC Sodium 138 138 (135-145) mmol/L Potassium 4.5 4.0 (3.3-5.1) mmol/L Chloride 101 106 (96-108) mmol/L Carbon Dioxide 28 23 (22-29) mmol/L Anion Gap 14 13 (12-20) BUN 28 H 26 H (9-16) mg/dL Creatinine 2.35 H 2.10 H (0.5-1.4) mg/dL Estim Creat Clear Calc 14.9 16.7 Estimated GFR 20 22 Random Glucose 113 89 (60-115) mg/dL Calcium 9.2 D 8.4 D (8.4-10.2) mg/dL Magnesium 2.8 H (1.6-2.6) mg/dL Total Bilirubin 0.3 (0.0-1.0) mg/dL Direct Bilirubin 0.2 (0.0-0.5) mg/dL AST 36 H (5-31) U/L ALT 18 (0-31) U/L Alkaline Phosphatase 110 (39-117) U/L Total Protein 6.3 L (6.5-8.0) g/dL Albumin 3.3 L (3.5-5.0) g/dL Urine Color Yellow Urine Appearance Turbid Urine pH 5.5 (5.0-9.0) Ur Specific [place] 1.010 (1.005-1.025) Urine Protein 30 (1+) H (Neg-Trace) mg/dL Urine Glucose (UA) Negative (Negative) mg/dL Urine Ketones Negative (Negative) mg/dL Urine Blood Moderate (2+) H (Negative) Urine Nitrite Negative (Negative) Ur Leukocyte Esterase Large (3+) H (Negative) Influenza Type A (PCR) NEGATIVE (Negative) Influenza Type B (PCR) NEGATIVE (Negative) RSV RNA Qual (PCR) NEGATIVE (Negative) SARS-CoV-2 RNA (RT-PCR) NEGATIVE (Negative) Independent Interpretation I performed an independent interpretation of an: EKG Critical Care Time Critical Care Time Critical Care Time: Yes Total Critical Care Time: 50 Attestation: I have personally provided critical care time. Time includes review of lab data, radiology results, discussion with consultants, and monitoring for potential decompensation. Intervention performed as documented. Discharge Plan Discharge Clinical Impression: Acute renal failure superimposed on chronic kidney disease, Weakness generalized, Dehydration, Acute UTI Patient Disposition: Admitted As Inpatient Print Language: Nigerien
[2025-03-22 23:57] VITALS: BP 120/55; BP 125/50; PULSE 69; PULSE 96; RESP 12; TEMP 36.4; O2SAT 98; O2SAT 99; BMI 29.5
[2025-03-23 01:27] LABS: MANUAL DIFF FLAG NO
[2025-03-23 01:28] LABS: Hematocrit 36.4 % (37.0-47.0); Hemoglobin 11.6 g/dl (12.0-16.0); Imm Gran Abs Auto 0.08 X10*3/uL (0.00-0.03); Imm Gran Pct Auto 0.5 % (0.0-0.4); Lymphocytes Absolute Auto 0.8 X10*3/uL (1.2-4.9); Mean Corpuscular HGB Conc 31.9 g/dl (31.0-35.0); Mean Corpuscular Hemoglobin 29.2 pg (27.0-33.0); Mean Corpuscular Volume 91.7 fL (80.0-98.0); NRBC Abs Auto 0.000 X10*3/uL (0.0-0.012); NRBC Pct Auto 0.0 /100WBC (0.0-0.2); Platelet Count 361 X10*3/uL (160-400); Red Blood Count 3.97 X10*6/uL (4.20-5.50); White Blood Count 16.7 X10*3/uL (4.8-10.8)
[2025-03-23 01:49] LABS: Alanine Aminotransferase 18 U/L (0-31); Albumin Level 3.3 g/dL (3.5-5.0); Alkaline Phosphatase 110 U/L (39-117); Anion Gap 14 (12-20); Aspartate Amino Transferase 36 U/L (5-31); Blood Urea Nitrogen 28 mg/dL (9-16); Calcium 9.2 mg/dL (8.4-10.2); Carbon Dioxide 28 mmol/L (22-29); Chloride 101 mmol/L (96-108); Creatinine Clr Calc Pharmacy 14.9; Estimated Glomerular Filt Rate 20; Magnesium 2.8 mg/dL (1.6-2.6); Potassium 4.5 mmol/L (3.3-5.1); Sodium 138 mmol/L (135-145); Total Protein 6.3 g/dL (6.5-8.0)
[2025-03-23 02:04] LABS: Resp Syncy Virus RNA Qual PCR NEGATIVE (Negative); SARS COV2 PCR INHOUSE NEGATIVE (Negative)
[2025-03-23 05:44] LABS: Anion Gap 13 (12-20); Blood Urea Nitrogen 26 mg/dL (9-16); Calcium 8.4 mg/dL (8.4-10.2); Carbon Dioxide 23 mmol/L (22-29); Chloride 106 mmol/L (96-108); Creatinine Clr Calc Pharmacy 16.7; Estimated Glomerular Filt Rate 22; Potassium 4.0 mmol/L (3.3-5.1); Sodium 138 mmol/L (135-145)
[2025-03-23 06:39] VITALS: BP 128/67; PULSE 76; RESP 20; TEMP 36.4; O2SAT 99
[2025-03-23 07:11] LABS: Appearance Urine Turbid; Glucose Urine UA Negative (Negative); PH 5.5 (5.0-9.0); Specific Gravity - Urine 1.010 (1.005-1.025); UMIC TRIGGER UACC YES
[2025-03-23 07:27] LABS: UACC Culture Trigger YES
--- NOTE | 2025-03-23 07:43 | HO.NURTONUR ---
Patient is a 89 year old female who presented to ED via EMS s/p fall due to weakness. Patient was discharged from [facility] 9 days ago, sent to rehab where she was too weak to get OOB and went home. Patient denied any head strike or LOC on fall. Here patients UA + and getting IV abx through right arm IV. Labs remarkable for STACI. Patient received 1L fluid bolus. Voiding in commode using stand pivot 1 assist. VSS on RA.
--- NOTE | 2025-03-23 07:54 | PM.IMHP ---
History of Present Illness Date of Service: 03/23/25 Attending physician on admission: Abelino [facility] Chief Complaint: fall, weakness This is an 89-year-old female with history of bladder cancer status post TURBT and chemotherapy among others with recent admission for constipation, urinary retention, STACI who presents to the emergency department after a fall. Patient was admitted March 09 and was discharged to short term rehab on March 13. Per emergency room documentation the family reported that the patient did not get out of bed much at the rehab facility and remained weak but was discharged home. When the patient got home she attempted to walk to the bathroom with her walker but fell backward onto her buttocks. She did not lose consciousness or hit her head. The patient herself is a poor history and her history is limited due to underlying dementia. In the emergency department workup was significant for leukocytosis of 16.7, elevated creatinine of 2.35. She was treated with IV fluid for STACI and repeat labs were obtained which showed persistent STACI. Urinalysis was obtained which was consistent with UTI and she was started on IV ceftriaxone. Admission was requested for management of STACI and UTI. Review of Systems Review of Systems: Yes all other systems are reviewed and are negative Constitutional: Constitutional: Denies chills and Denies fever(s) Cardiovascular: Cardiovascular: Denies chest pain, Denies palpitations and Denies dyspnea Respiratory: Respiratory: Denies cough and Denies dyspnea Gastrointestinal: Gastrointestinal: Denies abdominal pain, Denies diarrhea, Denies nausea and Denies vomiting Endocrine: Endocrine: Denies palpitations [facility] Medical History Dementia Paroxysmal atrial fibrillation Acute diastolic (congestive) heart failure Persistent atrial fibrillation Multinodular goiter (nontoxic) Pedal edema Removal of staple Visit for suture removal Complicated urinary tract infection Dysphagia Screening for breast cancer Abnormal ultrasound of breast Abnormal mammogram of left breast Multiple falls Physical deconditioning Breast cancer, left Breast cancer Chronic renal insufficiency Cardiac pacemaker in situ AV block Leg edema Screening for diabetes mellitus On beta jake at home Arthritis Vertigo MARIELA (obstructive sleep apnea) Sick sinus syndrome Peripheral vascular disease Menieres disease Urinary bladder cancer Obesity Gout GERD (gastroesophageal reflux disease) Hypercholesterolemia Family History Father Stroke Mother Heart disease Surgical History History of lumpectomy of left breast (03/10/23) History of esophagogastroduodenoscopy (EGD) S/P cardiac pacemaker procedure Hx of colonoscopy History of cystoscopy S/P MARION-BSO (total abdominal hysterectomy and bilateral salpingo-oophorectomy) History of cataract surgery History of knee replacement History of tonsillectomy History of appendectomy History of cholecystectomy Social History Household Members: None Housing: Apartment Are you a primary rn palliative care to a significant other at home: No Do you presently have visiting nurse or other home services: Yes (vna) Alcohol intake: never Comment: patient refusing alarms Patient Tobacco Use Status: Former Tobacco user Tobacco use type: Cigarette Smoked in Last 30 Days: No e-Cigarette/Vaping Use: Never Used Second Hand Smoke Exposure: No Use of substances other than those prescribed or required for medical reasons: No Have you been hit, kicked, punched, or otherwise hurt by someone within the past year? If so, by whom?: No Do you feel safe in your current relationship?: No Current Relationship Is there a partner from a previous relationship who is making you feel unsafe now?: No Are you made to feel afraid or neglected: No Advance Directives: Yes Advance Directives on File: Yes Advance Directives Date on File: 09/15/21 Do you have a plan to hurt others: No Plan Nutrition Risks: No Nutritional Risk Patient : No : No Poor oral hygiene: No service: No Current occupational status: retired Cognitive needs: No Hearing needs: Yes Vision needs: Yes Meds Allergies Allergy/AdvReac Type Severity Reaction Status Date / Time No Known Allergies (No Known Allergy Verified 03/22/25 23:58 Allergies*) Home Medications ?Medication ?Instructions ?Recorded ?Confirmed ?Last Taken ?Type cholecalciferol (vitamin D3) 25 25 mcg PO DAILY 03/11/20 03/09/25 03/07/25 History mcg (1,000 unit) capsule coenzyme Q10 100 mg capsule (Co 100 mg PO DAILY 03/11/20 03/09/25 03/07/25 History Q-10) cyclosporine 0.05 % eye drops in a 1 drp ophthalmic (eye) BID 07/15/24 03/09/25 03/07/25 History dropperette (Restasis) nystatin 100,000 unit/gram topical 1 appl topical DAILY PRN Rash 03/09/25 03/09/25 03/07/25 History powder Physical Exam Vital Signs and Narrative: Vital Signs: Last Vital Signs Temp 97.5 F 03/23/25 06:39 Pulse 76 03/23/25 06:39 Resp 20 03/23/25 06:39 BP 128/67 03/23/25 06:39 Pulse Ox 99 03/23/25 06:39 O2 Del Method Room Air 03/23/25 06:39 BMI result Body Mass Index 29.5 Const: General: cooperative, comfortable, no acute distress, alert and awake Nutritional Appearance: thin Orientation/consciousness: oriented to person and oriented to place Resp: Effort & Inspection: normal respiratory effort, able to speak in complete sentences, no respiratory distress and no use of accessory muscles Cardio: Rate: regular rate GI: Inspection: No distended Palpation (GI): Soft to palpation and nontender Neuro: General: oriented to person, oriented to place, moves all extremities and CN's II-XI intact bilaterally Extrem: Other: trace LLE edema Results Labs 03/23/25 01:15 03/23/25 04:50 Labs: Laboratory Results - last 24 hr 03/23/25 03/23/25 03/23/25 01:15 04:50 06:42 MCV 91.7 MCH 29.2 MCHC 31.9 RDW 16.0 Plt Count 361 MPV 9.2 L Immature Gran % (Auto) 0.5 H Neut % (Auto) 88.8 H Lymph % (Auto) 4.5 L [place] % (Auto) 5.6 Eos % (Auto) 0.2 Baso % (Auto) 0.4 Lymph # (Auto) 0.8 L [place] # (Auto) 0.9 Eos # (Auto) 0.0 Baso # (Auto) 0.1 Abs Immat Gran (auto) 0.08 H Absolute Neuts (auto) 14.9 H Absolute Nucleated RBC 0.000 Nucleated RBC % (auto) 0.0 Anion Gap 14 13 Estim Creat Clear Calc 14.9 16.7 Estimated GFR 20 22 Random Glucose 113 89 Calcium 9.2 D 8.4 D Magnesium 2.8 H Total Bilirubin 0.3 Direct Bilirubin 0.2 AST 36 H ALT 18 Alkaline Phosphatase 110 Total Protein 6.3 L Albumin 3.3 L Urine Color Yellow Urine Appearance Turbid Urine pH 5.5 Ur Specific [place] 1.010 Urine Protein 30 (1+) H Urine Glucose (UA) Negative Urine Ketones Negative Urine Blood Moderate (2+) H Urine Nitrite Negative Ur Leukocyte Esterase Large (3+) H Urine RBC 3-5 H Urine WBC >50 H Urine WBC Clumps Present Ur Squamous Epith Cells >20 Ur Transition Epith Cell Present Ur Renal Epithelial Cell Present Urine Bacteria 3+ Hyaline Casts 11-20 Influenza Type A (PCR) NEGATIVE Influenza Type B (PCR) NEGATIVE RSV RNA Qual (PCR) NEGATIVE SARS-CoV-2 RNA (RT-PCR) NEGATIVE Assessment and Plan (1) Acute renal failure superimposed on chronic kidney disease: Status: Acute Plan This is an 89yo F with CKD3b, pAF on Eliquis and s/p PPM, HFpEF, dementia, bladder CA s/p TURBT + chemotherapy, breast CA s/p lumpectomy, hx appendectomy/cholecystectomy, MARION, recent admission for constipation/STACI discharged to rehab and now returns with generalized weakness, recurrent STACI and possible UTI. STACI on CKD3b IVF trend BMP UTI started on IV ceftriaxone follow urine cultures mechanical fall PT evaluation for safe disposition h/o urinary retention if PVF 450cc+ place [facility] outpatient Urology followup h/o constipation reports BM recently continue bowel regimen pAF: amiodarone, apixaban GERD: PPI dementia: memantine HLD: statin HFpEF: not on diuretics med rec pending at the time of admission VTE ppx: apixaban Patient will likely require two midnight stay in the hospital for management of UTI and STACI requiring IV rehydration and antibiotics Quality Stroke Does the patient have a stroke diagnosis?: No VTE Prior VTE?: No VTE Risk Level:: Medical - moderate - high VTE Device Contraindication: Treatment Not Indicated VTE Drug Contraindication: N/A - Med Ordered
[2025-03-23] MEDS: Lactated Ringers 1,000 ML 100 ML IVCONT ×2 (08:14→22:04)
[2025-03-23 09:18] VITALS: BP 112/54; PULSE 69; RESP 16; TEMP 36.6; O2SAT 99
--- NOTE | 2025-03-23 11:48 | PHA.MEDREC ---
Pharmacy Consult ? Medication Reconciliation Pharmacy has completed the medication reconciliation. Spoke to patient and sister Beth at bedside and both confirmed nothing has changed since last discharge on 03/14/25. Last dose of medications was yesterday 03/22/25.
--- NOTE | 2025-03-23 14:45 | MHC.CM.PN ---
CM MET WITH PTS SISTER, JAYJAY AT BEDSIDE SHE REPORTS THE PT LIVES ALONE JAYJAY AND HER NIECE, ALEN, ASSIST PT NEEDED PT HAS [facility] FOR WEEKLY V/S AND MED MANAGEMENT SHE HAS A RELIEF MAP MODELER ONCE PER WEEK FOR 2 HOURS PT USES A WALKER, BUT HAS FALLEN PER SISTER HCP ON FILE ([facility]EN [phone]) PCP: [facility] DELIVERED DCP: PER NANCYS REPORT, THEY ARE HOPING PT CAN DC TO STR WITH A PLAN TO RETURN HOME THEY HAVE SUBMITTED A MH TOR[facility] TO GET MORE HOME CARE SERVICES SHE SAYS THEY WOULD LIKE TO KEEP HER IN THE MOST FAMILIAR AND LEAST RESTRICTIVE ENVIRONMENT LONG POSSIBLE SHE SAYS PT WENT TO [facility] LAST TIME, BUT STATES THE CARE WAS NOT VERY GOOD THEY ARE REQUESTING REFERRALS TO [facility], AND [facility]
[2025-03-23 15:45] VITALS: BP 109/46; PULSE 61; RESP 16; TEMP 36.1; O2SAT 100
[2025-03-23 19:52] VITALS: BP 97/65; PULSE 65; RESP 18; TEMP 36.1; O2SAT 100
[2025-03-24] VITALS (8 sets, daily range): BP systolic 111–139; BP diastolic 50–67; PULSE 61–108; RESP 14–18; TEMP 36–36.2; O2SAT 95–99
[2025-03-24 06:57] LABS: Anion Gap 10 (12-20); Blood Urea Nitrogen 25 mg/dL (9-16); Calcium 8.5 mg/dL (8.4-10.2); Carbon Dioxide 28 mmol/L (22-29); Chloride 106 mmol/L (96-108); Creatinine Clr Calc Pharmacy 20.7; Estimated Glomerular Filt Rate 29; Potassium 4.3 mmol/L (3.3-5.1); Sodium 140 mmol/L (135-145)
[2025-03-24] MEDS: Lactated Ringers 1,000 ML 100 ML IVCONT (07:29)
[2025-03-24] MEDS: 0.9 % Sodium Chloride Flush 3 ML SYRINGE IVFLUSH ×3 (07:53→20:54)
--- NOTE | 2025-03-24 08:21 | HO.PM.IMPN ---
Subjective Subjective Date of Service: 03/24/25 Interval History: uti,staci Review of Systems seems generalised weak no new c/o Review of Systems: Yes all other systems are reviewed and are negative Physical Exam Exam: Exam: Appearance:semilar to H&P cvs: rrr, [id number]. res: clear to auscultation ,no rhonchii or wheezing abd: no rebound or guarding ,nt, bs present. ext pulses present , no cyanosis . neuro: nonfocal. Vital Signs: Vital Signs: Last Vital Signs Temp 96.9 F 03/24/25 08:00 Pulse 75 03/24/25 08:00 Resp 18 03/24/25 08:00 BP 126/57 L 03/24/25 08:00 Pulse Ox 99 03/24/25 08:00 O2 Del Method Room Air 03/24/25 08:00 BMI result Body Mass Index 29.5 Objective Data Active Medications Acetaminophen (Acetaminophen 325 Mg Tablet) 650 mg PO Q6H PRN PRN Reason: Pain, Mild 1-3,fever,headache Amiodarone HCl (Amiodarone Hcl 200 Mg Tablet) 200 mg PO DAILY [facility] Last Admin: 03/24/25 07:59 Dose: 200 mg Documented By: STEPHANIE Apixaban (Apixaban 2.5 Mg Tablet) 2.5 mg PO BID [facility] Last Admin: 03/24/25 07:59 Dose: 2.5 mg Documented By: STEPHANIE Atorvastatin Calcium (Atorvastatin Calcium 10 Mg Tablet) 10 mg PO BEDTIME [facility] Last Admin: 03/23/25 21:50 Dose: 10 mg Documented By: ALINA Calcium Carbonate (Calcium Carbonate 750 Mg Tab.Chew) 750 mg PO Q4H PRN PRN Reason: Heartburn Cyanocobalamin (Cyanocobalamin (Vitamin B-12) 1,000 Mcg Tablet) 1,000 mcg PO DAILY [facility] Last Admin: 03/24/25 07:59 Dose: 1,000 mcg Documented By: STEPHANIE Gabapentin (Gabapentin 300 Mg Capsule) 300 mg PO BEDTIME [facility] Last Admin: 03/23/25 21:50 Dose: 300 mg Documented By: ALINA Lactated Ringer's (Lr) 1,000 mls @ 100 mls/hr IVCONT .Q10H [facility] Last Infusion: 03/24/25 07:59 Dose: 0 mls/hr Documented By: STEPHANIE Ceftriaxone Sodium 1 gm/ (Sodium Chloride) 50 mls @ 100 mls/hr IV Q24H [facility] Last Admin: 03/24/25 07:52 Dose: 100 mls/hr Documented By: STEPHANIE Magnesium Hydroxide (Milk Of Magnesia 30 Ml Oral.Susp) 30 ml PO DAILY PRN PRN Reason: Constipation Magnesium Oxide (Magnesium Oxide 400 Mg Tablet) 400 mg PO DAILY [facility] Last Admin: 03/24/25 07:59 Dose: 400 mg Documented By: STEPHANIE Melatonin (Melatonin 3 Mg Tablet) 6 mg PO BEDTIME PRN PRN Reason: Insomnia Non-Formulary Medication (Cyclosporine [Restasis]) 1 drop EYE-BOTH BID [facility] Non-Formulary Medication (Memantine) 14 mg PO DAILY [facility] Nystatin (Nystatin Powder 15 Gm Bottle) 1 appl TOPICAL DAILY PRN; Protocol PRN Reason: Rash Omeprazole (Omeprazole 20 Mg Capsule.Dr) 20 mg PO DAILY@0630 [facility] Last Admin: 03/24/25 06:33 Dose: 20 mg Documented By: ALINA Polyethylene Glycol (Polyethylene Glycol 3350 17 Gm Powd.Pack) 17 gm PO DAILY [facility] Last Admin: 03/24/25 07:59 Dose: 17 gm Documented By: STEPHANIE Senna/Docusate Sodium (Sennosides/Docusate Sodium Tablet) 1 tab PO BID [facility] Last Admin: 03/24/25 07:59 Dose: 1 tab Documented By: STEPHANIE Sodium Chloride (0.9 % Sodium Chloride Flush 3 Ml Syringe) 3 ml IVFLUSH QSHIFT [facility] Last Admin: 03/24/25 07:53 Dose: 3 ml Documented By: STEPHANIE Vitamin D (Cholecalciferol (Vitamin D3) 25 Mcg Tablet) 25 mcg PO DAILY [facility] Last Admin: 03/24/25 07:59 Dose: 25 mcg Documented By: STEPHANIE Labs 03/24/25 08:34 03/24/25 05:31 Labs: Laboratory Results - last 24 hr 03/24/25 05:31 Anion Gap 10 L Estim Creat Clear Calc 20.7 Estimated GFR 29 Random Glucose 75 Calcium 8.5 Assessment and Plan (1) Acute renal failure superimposed on chronic kidney disease: Status: Acute (2) Acute UTI: Status: Acute Plan 89yo F with CKD3b, pAF on Eliquis and s/p PPM, HFpEF, dementia, bladder CA s/p TURBT + chemotherapy, breast CA s/p lumpectomy, hx appendectomy/cholecystectomy, MARION, recent admission for constipation/STACI discharged to rehab and now returns with generalized weakness, recurrent STACI and possible UTI. STACI on CKD3b improving plan : dc IVF, encouraged for po intake and hydration trend BMP UTI started on IV ceftriaxone follow urine cultures -pending mechanical fall PT evaluation for safe disposition h/o urinary retention moniter pvr outpatient Urology followup h/o constipation reports BM recently continue bowel regimen pAF: amiodarone, apixaban GERD: PPI dementia: memantine HLD: statin HFpEF: not on diuretics med rec pending at the time of admission VTE ppx: apixaban Ongoing need of stay in the hospital for management of UTI and STACI requiring IV rehydration and antibiotics, as well as pt eval Quality Stroke Does the patient have a stroke diagnosis?: No VTE Prior VTE?: No VTE Risk Level:: Medical - moderate - high VTE Device Contraindication: Treatment Not Indicated VTE Drug Contraindication: N/A - Med Ordered
[2025-03-24 08:54] LABS: Hematocrit 33.6 % (37.0-47.0); Hemoglobin 10.7 g/dl (12.0-16.0); Mean Corpuscular HGB Conc 31.8 g/dl (31.0-35.0); Mean Corpuscular Hemoglobin 29.2 pg (27.0-33.0); Mean Corpuscular Volume 91.6 fL (80.0-98.0); NRBC Abs Auto 0.000 X10*3/uL (0.0-0.012); NRBC Pct Auto 0.0 /100WBC (0.0-0.2); Platelet Count 311 X10*3/uL (160-400); Red Blood Count 3.67 X10*6/uL (4.20-5.50); White Blood Count 8.3 X10*3/uL (4.8-10.8)
--- NOTE | 2025-03-24 22:51 | PC.NURSE ---
1999- patient able to void only 50ml to bedside commode at this time, PVR was 163ml, therefore, no action taken and will continue to monitor output and PVR's
[2025-03-25] VITALS (7 sets, daily range): BP systolic 97–148; BP diastolic 48–68; PULSE 60–87; RESP 15–18; TEMP 36–37.3; O2SAT 93–99
[2025-03-25] MEDS: 0.9 % Sodium Chloride Flush 3 ML SYRINGE IVFLUSH ×3 (09:11→21:03)
--- NOTE | 2025-03-25 11:54 | MHC.CM.PN ---
Addendum entered by Marlene Puga 03/25/25 12:49: CM RECEIVED A RETURN CALL FROM PTS SISTER, JAYJAY SHE SAYS SHE IS SCARED TO HAVE PT RETURN HOME AT DC SHE STATES SHE WAS PLANNING TO COME IN TOMORROW, SHE DOES NOT WANT TO GO OUT TODAY SHE IS AFRAID OF FALLING HERSELF PER DISCUSSION, AN UPDATED PT EVAL WILL BE REQUESTED AND FAMILY WILL BE PRESENT TO DISCUSS DCP ALONG WITH PT TOMORROW Original Note: HOME WITH SERVICES HAS BEEN RECOMMENDED, HOWEVER FAMILY HAS INDICATED CONCERN FOR PTS SAFETY AT HOME AND FEEL SHE NEEDS STR CM ATTEMPTED TO CONTACT PTS SISTER TO DISCUSS DCP FURTHER, A VM WAS LEFT REQUESTING A RETURN CALL
--- NOTE | 2025-03-25 13:21 | HO.PM.IMPN ---
Subjective Subjective Date of Service: 03/25/25 Interval History: uti, staci Review of Systems no new c/o. Generalized weak Physical Exam Exam: Exam: Appearance:semilar to H&P cvs: rrr, [id number]. res: clear to auscultation ,no rhonchii or wheezing abd: no rebound or guarding ,nt, bs present. ext pulses present , no cyanosis . neuro: nonfocal. Vital Signs: Vital Signs: Last Vital Signs Temp 99.2 F 03/25/25 11:58 Pulse 60 03/25/25 11:58 Resp 16 03/25/25 11:58 BP 99/55 L 03/25/25 11:58 Pulse Ox 95 03/25/25 11:58 O2 Del Method Room Air 03/25/25 11:58 BMI result Body Mass Index 29.5 Objective Data Active Medications Acetaminophen (Acetaminophen 325 Mg Tablet) 650 mg PO Q6H PRN PRN Reason: Pain, Mild 1-3,fever,headache Amiodarone HCl (Amiodarone Hcl 200 Mg Tablet) 200 mg PO DAILY [facility] Last Admin: 03/25/25 09:10 Dose: 200 mg Documented By: AYE Apixaban (Apixaban 2.5 Mg Tablet) 2.5 mg PO BID [facility] Last Admin: 03/25/25 09:10 Dose: 2.5 mg Documented By: AYE Atorvastatin Calcium (Atorvastatin Calcium 10 Mg Tablet) 10 mg PO BEDTIME [facility] Last Admin: 03/24/25 20:54 Dose: 10 mg Documented By: ALINA Calcium Carbonate (Calcium Carbonate 750 Mg Tab.Chew) 750 mg PO Q4H PRN PRN Reason: Heartburn Cefuroxime Axetil (Cefuroxime Axetil 250 Mg Tablet) 250 mg PO Q12H [facility] Last Admin: 03/25/25 09:10 Dose: 250 mg Documented By: AYE Cyanocobalamin (Cyanocobalamin (Vitamin B-12) 1,000 Mcg Tablet) 1,000 mcg PO DAILY [facility] Last Admin: 03/25/25 09:10 Dose: 1,000 mcg Documented By: AYE Gabapentin (Gabapentin 300 Mg Capsule) 300 mg PO BEDTIME [facility] Last Admin: 03/24/25 20:54 Dose: 300 mg Documented By: ALINA Magnesium Hydroxide (Milk Of Magnesia 30 Ml Oral.Susp) 30 ml PO DAILY PRN PRN Reason: Constipation Magnesium Oxide (Magnesium Oxide 400 Mg Tablet) 400 mg PO DAILY [facility] Last Admin: 03/25/25 09:10 Dose: 400 mg Documented By: AYE Melatonin (Melatonin 3 Mg Tablet) 6 mg PO BEDTIME PRN PRN Reason: Insomnia Pt Own (Cyclosporine [Restasis] 0.05 % Dropperette) 1 drop EYE-BOTH BID [facility] Last Admin: 03/25/25 09:11 Dose: Not Given Documented By: AYE Non-Admin Reason: Med Not Available Non-Formulary Medication (Memantine) 14 mg PO DAILY [facility] Nystatin (Nystatin Powder 15 Gm Bottle) 1 appl TOPICAL DAILY PRN; Protocol PRN Reason: Rash Omeprazole (Omeprazole 20 Mg Capsule.Dr) 20 mg PO DAILY@0630 [facility] Last Admin: 03/25/25 06:27 Dose: 20 mg Documented By: ALINA Polyethylene Glycol (Polyethylene Glycol 3350 17 Gm Powd.Pack) 17 gm PO DAILY [facility] Last Admin: 03/25/25 09:10 Dose: 17 gm Documented By: AYE Senna/Docusate Sodium (Sennosides/Docusate Sodium Tablet) 1 tab PO BID [facility] Last Admin: 03/25/25 09:10 Dose: 1 tab Documented By: AYE Sodium Chloride (0.9 % Sodium Chloride Flush 3 Ml Syringe) 3 ml IVFLUSH QSHIFT [facility] Last Admin: 03/25/25 09:11 Dose: 3 ml Documented By: AYE Vitamin D (Cholecalciferol (Vitamin D3) 25 Mcg Tablet) 25 mcg PO DAILY [facility] Last Admin: 03/25/25 09:10 Dose: 25 mcg Documented By: AYE Labs 03/24/25 08:34 03/24/25 05:31 Microbiology Microbiology Results: Microbiology 03/23/25 Unknown Urine Culture - Final Urine clean catch - Clean Catch Midstream Escherichia coli Corynebacterium species Assessment and Plan (1) Acute renal failure superimposed on chronic kidney disease: Status: Acute (2) Acute UTI: Status: Acute Plan 89yo F with CKD3b, pAF on Eliquis and s/p PPM, HFpEF, dementia, bladder CA s/p TURBT + chemotherapy, breast CA s/p lumpectomy, hx appendectomy/cholecystectomy, MARION, recent admission for constipation/STACI discharged to rehab and now returns with generalized weakness, recurrent STACI and possible UTI. STACI on CKD3b improving plan : dc IVF, encouraged for po intake and hydration trend BMP UTI started on IV ceftriaxone follow urine cultures -ecoli sensitive to ceftriaxone Switched to p.o. Ceftin mechanical fall Repeat PT evaluation for safe disposition h/o urinary retention moniter pvr outpatient Urology followup h/o constipation reports BM recently continue bowel regimen pAF: amiodarone, apixaban GERD: PPI dementia: memantine HLD: statin HFpEF: not on diuretics VTE ppx: apixaban Ongoing need of stay : Repeat PT evaluation-for safe for disposition. Quality Stroke Does the patient have a stroke diagnosis?: No VTE Prior VTE?: No VTE Risk Level:: Medical - moderate - high VTE Device Contraindication: Treatment Not Indicated VTE Drug Contraindication: N/A - Med Ordered
[2025-03-26 03:37] VITALS: BP 110/55; PULSE 64; RESP 18; TEMP 36.3; O2SAT 95
[2025-03-26 08:03] VITALS: BP 125/59; PULSE 77; RESP 15; TEMP 36.3; O2SAT 93
[2025-03-26] MEDS: 0.9 % Sodium Chloride Flush 3 ML SYRINGE IVFLUSH (08:08)
--- NOTE | 2025-03-26 11:16 | P.DS_ITS ---
DS: Providers Provider Date of admission: 03/23/25 07:33 Date of discharge: 03/26/25 Primary care physician: Román Naik MD Attending physician on discharge: Evelyne Patterson Discharging clinician: Evelyne Patterson DS: Diagnosis Discharge Diagnosis (1) Acute renal failure superimposed on chronic kidney disease: Status: Acute (2) Acute UTI: Status: Acute DS: Summary Hospital Course Hospital Course: HPI: 89-year-old female with history of bladder cancer status post TURBT and chemotherapy among others with recent admission for constipation, urinary retention, STACI who presents to the emergency department after a fall. Patient was admitted March 09 and was discharged to short term rehab on March 13. Per emergency room documentation the family reported that the patient did not get out of bed much at the rehab facility and remained weak but was discharged home. When the patient got home she attempted to walk to the bathroom with her walker but fell backward onto her buttocks. She did not lose consciousness or hit her head. The patient herself is a poor history and her history is limited due to underlying dementia. In the emergency department workup was significant for leukocytosis of 16.7, elevated creatinine of 2.35. She was treated with IV fluid for STACI and repeat labs were obtained which showed persistent STACI. Urinalysis was obtained which was consistent with UTI and she was started on IV ceftriaxone. Admission was requested for management of STACI and UTI. Hospital course: 89yo F with CKD3b, pAF on Eliquis and s/p PPM, HFpEF, dementia, bladder CA s/p TURBT + chemotherapy, breast CA s/p lumpectomy, hx appendectomy/cholecystectomy, MARION, recent admission for constipation/STACI discharged to rehab and now returns with generalized weakness, recurrent STACI and possible UTI. Patient admitted for STACI on CKD3b and UTI:Patient was admitted for generalized weak, STACI and UTI: Patient was given hydration and IV antibiotics, urine cultures sent. With the above supportive care patient seems to be improved significantly. Switched to p.o. Ceftin upon discharge. Patient will be going to rehab. follow urine cultures -ecoli sensitive to ceftriaxone mechanical fall PT evaluation recommended rehab h/o urinary retention moniter pvr outpatient Urology followup h/o constipation inital ct abd -showed possible stool impaction - on Bowel regimen-passing BMs. Patient is tolerating diet, no abdominal pain Plan Complete antibiotic course Bowel regimen Monitor for urinary retention with a PVR if needed consider Rivera and outpatient urology evaluation. Assessment and plan coordination time spent 45 minute Time Attestation Total time managing care of this patient today: 45 mintues. Discharge Coordination Time (in mins): 45min Quality: Safe Use of Opioids Does Pt have an Active Cancer Diagnosis on the Problem List?: No Quality: Stroke Does the patient have a stroke diagnosis?: No Physical Exam Exam: Exam: Appearance:semilar to H&P cvs: rrr, [id number]. res: clear to auscultation ,no rhonchii or wheezing abd: no rebound or guarding ,nt, bs present. ext pulses present , no cyanosis . neuro: nonfocal. Vital Signs: Vital Signs: Last Vital Signs Temp 97.4 F 03/26/25 08:03 Pulse 77 03/26/25 08:03 Resp 15 03/26/25 08:03 BP 125/59 L 03/26/25 08:03 Pulse Ox 93 03/26/25 08:03 O2 Del Method Room Air 03/26/25 08:03 BMI result Body Mass Index 29.5 DS: Data Imaging Chest x-ray: My impression: ct abd: 1. Severe distention of the rectum with fecal material with an appearance suggesting possible impaction. Mild associated proctitis. 2. There is distention of the urinary bladder. Discharge Plan Discharge Anticipated Discharge Date/Time: 03/26/25 11:09 Patient Disposition: Xfer SNF Discharge Diagnosis: uti,staci Referrals: [facility] [Outside] - 1 Day Referral Note: short term rehab Po,Román Leslie MD [Primary Care Provider, Internal Medicine] - 1 Week Discharge Medications: New cefuroxime axetil 250 mg Tablet 250 mg PO Q12H Qty: 12 0RF Continued simvastatin 20 mg tablet 20 mg PO BEDTIME Qty: 90 3RF cyanocobalamin (vitamin B-12) 1,000 mcg capsule 1,000 mcg PO DAILY Qty: 90 3RF omeprazole 20 mg capsule,delayed release(DR/EC) 20 mg PO DAILY@0630 Qty: 90 1RF memantine 14 mg capsule,sprinkle,ER 24hr 14 mg PO DAILY Qty: 30 0RF cyclosporine [Restasis] 0.05 % dropperette 1 drp ophthalmic (eye) BID nystatin 100,000 unit/gram powder 1 appl topical DAILY PRN (Reason: Rash) Rx Instructions: Apply 2 times per day thin coat of topical powder to affected area sennosides-docusate sodium 8.6-50 mg tablet 1 tab-cap PO BID Qty: 60 0RF polyethylene glycol 3350 [Miralax] 17 gram powder in packet 17 g PO DAILY Qty: 30 0RF cholecalciferol (vitamin D3) 25 mcg (1,000 unit) capsule 25 mcg PO DAILY coenzyme Q10 [Co Q-10] 100 mg capsule 100 mg PO DAILY gabapentin 300 mg capsule 300 mg PO BEDTIME Qty: 90 3RF apixaban 2.5 mg tablet 2.5 mg PO BID Qty: 60 3RF magnesium oxide 400 mg (241.3 mg magnesium) tablet 400 mg PO DAILY Qty: 30 3RF amiodarone 200 mg tablet 200 mg PO DAILY Qty: 30 5RF Discharge Orders: Discharge Order (Routine); Ordered 03/26/25 Ordered By: Evelyne Patterson Diet: Advance to usual diet Activity on Discharge: As tolerated Stand Alone Forms: Patient Portal Discharge page Print Language: Hungarian Care Plan Goals: Patient was admitted for generalized weak, STACI and UTI: Patient was given hydration and IV antibiotics, urine cultures sent. With the above supportive care patient seems to be improved significantly. Switched to p.o. Ceftin upon discharge. Patient will be going to rehab. Health Concerns: As above. Plan of Treatment: As above. Assessment: As above.
--- NOTE | 2025-03-26 11:31 | MHC.CM.PN ---
Patient medically cleared for dc to [facility]. HCP/lisa Grullon accepted bed at [facility]. BLS booked for 1230. MD/RN aware. IMM delivered.
== END 2025-03-26 12:54 | disposition skilled nursing facility (03) | DRG 690 ==
LOC: HO.ED 03-23 05:55 → HO.EDOVER 03-23 07:43 → HO.S3 03-23 08:20
PROVIDERS: Admitting Provider Physician Assistant Medical; Emergency Provider Emergency Medicine; PCP Internal Medicine; Visit Provider Internal Medicine
DX: N39.0 Urinary tract infection, site not specified (principal); N17.9 Acute kidney failure, unspecified; I50.32 Chronic diastolic (congestive) heart failure; I49.5 Sick sinus syndrome; E86.0 Dehydration; N18.32 Chronic kidney disease, stage 3b; I48.0 Paroxysmal atrial fibrillation; B96.20 Unspecified Escherichia coli [E. coli] as the cause of diseases classified elsewhere; F03.90 Unspecified dementia, unspecified severity, without behavioral disturbance, psychotic disturbance, mood disturbance, and anxiety; W19.XXXA Unspecified fall, initial encounter; Z20.822 Contact with and (suspected) exposure to COVID-19; Z95.0 Presence of cardiac pacemaker; Z85.51 Personal history of malignant neoplasm of bladder; Z87.891 Personal history of nicotine dependence; Z79.899 Other long term (current) drug therapy
CPT/HCPCS: 36415; 80048; 80076; 81001; 81003; 83735; 85025; 85027; 87086; 87088; 87186; 87637; 93005; 97162; 97530; 99285; J0696; J7120

== ENCOUNTER → 2025-03-22 23:50 | Outpatient (BNV) | payer MEDICARE, SELFPAY | PROVIDERS: Admitting Provider Physician Assistant Medical; Emergency Provider Emergency Medicine; PCP Internal Medicine; Visit Provider Internal Medicine Cardiovascular Disease | DX: R94.31 Abnormal electrocardiogram [ECG] [EKG] (principal); Z95.0 Presence of cardiac pacemaker | CPT/HCPCS: 93010 ==

== ENCOUNTER → 2025-03-23 07:33 | Outpatient (BNV) | payer MEDICARE, SELFPAY | PROVIDERS: Admitting Provider Physician Assistant Medical; Emergency Provider Emergency Medicine; PCP Internal Medicine; Visit Provider Internal Medicine | DX: N17.9 Acute kidney failure, unspecified (principal); N18.9 Chronic kidney disease, unspecified; N39.0 Urinary tract infection, site not specified | CPT/HCPCS: 99231; 99232 ==

== ENCOUNTER 2025-03-27 06:46 | Outpatient (REF) | payer SELFPAY ==
[2025-03-27 06:50] LABS: MANUAL DIFF FLAG NO
[2025-03-27 07:03] LABS: Hematocrit 30.5 % (37.0-47.0); Hemoglobin 9.6 g/dl (12.0-16.0); Imm Gran Abs Auto 0.02 X10*3/uL (0.00-0.03); Imm Gran Pct Auto 0.4 % (0.0-0.4); Lymphocytes Absolute Auto 1.8 X10*3/uL (1.2-4.9); Mean Corpuscular HGB Conc 31.5 g/dl (31.0-35.0); Mean Corpuscular Hemoglobin 29.1 pg (27.0-33.0); Mean Corpuscular Volume 92.4 fL (80.0-98.0); NRBC Abs Auto 0.000 X10*3/uL (0.0-0.012); NRBC Pct Auto 0.0 /100WBC (0.0-0.2); Platelet Count 328 X10*3/uL (160-400); Red Blood Count 3.30 X10*6/uL (4.20-5.50); White Blood Count 5.7 X10*3/uL (4.8-10.8)
[2025-03-27 07:24] LABS: Alanine Aminotransferase 10 U/L (0-31); Albumin Level 2.5 g/dL (3.5-5.0); Alkaline Phosphatase 104 U/L (39-117); Anion Gap 9 (12-20); Aspartate Amino Transferase 34 U/L (5-31); Blood Urea Nitrogen 19 mg/dL (9-16); Calcium 8.2 mg/dL (8.4-10.2); Carbon Dioxide 26 mmol/L (22-29); Chloride 110 mmol/L (96-108); Estimated Glomerular Filt Rate 38; Potassium 4.1 mmol/L (3.3-5.1); Sodium 141 mmol/L (135-145); Total Protein 4.8 g/dL (6.5-8.0)
== END 2025-03-27 06:47 | disposition home or self-care (01) ==
LOC: HO.MMNH1L 06:46
PROVIDERS: Visit Provider Physician Assistant Medical
DX: I11.0 Hypertensive heart disease with heart failure (principal); I50.9 Heart failure, unspecified; I48.91 Unspecified atrial fibrillation; Z13.1 Encounter for screening for diabetes mellitus
CPT/HCPCS: 36415; 80053; 83036; 85025

== ENCOUNTER 2025-03-29 10:57 | Day surgery (SDC) | payer MEDICARE, SELFPAY ==
--- OUTSIDE RECORDS SUMMARY | 2025-03-15 19:00 | XMS_ITS | Clinical Summary ---
Author Organization Unknown Care Team Providers Care Twisthand Name Role Phone PREETHI HARDEN, MARCUS Unavailable Unavailable ANUJA RN, CARRIE Unavailable Unavailable ROLAND APPOINTMENT SPECIALIST, KWESI Unavailable Unavailable FELECIA FOLEY LPN, MANNY Unavailable Toneyi girish Payers Payer Name Policy Type Policy Number Effective Date Expira tion Date MEDICARE - [facility] [place] - PDGM [id number] Problems Condition Name Condition Details Condition Category Status Onset Date Resolution Date Last Treatment Date Treating Clinician Comments UNSP DEMENTIA, UNSP SEVERITY, WITH OTHER BEHAVIORAL DISTURB Active 04-12 00:00: 00 OBSTRUCTIVE SLEEP APNEA (ADULT) (PEDIATRIC) Active 04-12 00:00: 00 LYMPHEDEMA, NOT ELSEWHERE CLASSIFIED Active 04-12 00:00: 00 HYP HRT AND CHR KDNY DIS W HRT FAIL AND STG 1-4/UNSP CHR KDNY Active 04-12 00:00: 00 UNSPECIFIED DIASTOLIC (CONGESTIVE) HEART FAILURE Active 04-12 00:00: 00 CHRONIC KIDNEY DISEASE, UNSPECIFIED Active 04-12 00:00: 00 ATRIOVENTRIC ULAR BLOCK, COMPLETE Active 04-12 00:00: 00 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 Active 04-12 00:00: 00 MALIGNANT NEOPLASM OF BLADDER, UNSPECIFIED Active 04-12 00:00: 00 OTHER PERSISTENT ATRIAL FIBRILLATION Active 04-12 00:00: 00 UNSPECIFIED OSTEOARTHRIT IS, UNSPECIFIED SITE Active 04-12 00:00: 00 GOUT, UNSPECIFIED Active 04-12 00:00: 00 PERIPHERAL VASCULAR DISEASE, UNSPECIFIED Active 04-12 00:00: 00 GASTRO-ESOPH AGEAL REFLUX DISEASE WITHOUT ESOPHAGITIS Active 04-12 00:00: 00 PURE HYPERCHOLEST EROLEMIA, UNSPECIFIED Active 04-12 00:00: 00 NONTOXIC MULTINODULAR GOITER Active 04-12 00:00: 00 CONSTIPATION , UNSPECIFIED Active 04-12 00:00: 00 MENIERE'S DISEASE, UNSPECIFIED EAR Active 04-12 00:00: 00 UNQUALIFIED VISUAL LOSS, ONE EYE, UNSPECIFIED Active 04-12 00:00: 00 OBESITY, UNSPECIFIED Active 04-12 00:00: 00 BODY MASS INDEX [BMI] 28.0-28.9, ADULT Active 04-12 00:00: 00 CUSTODIAL (CURRENT) USE OF ANTICOAGULAN TS Active 04-12 00:00: 00 PROBLEMS RELATED TO LIVING ALONE Active 04-12 00:00: 00 Problems related to health literacy Active 04-12 00:00: 00 PERSONAL HISTORY OF URINARY (TRACT) INFECTIONS Active 04-12 00:00: 00 PRESENCE OF CARDIAC PACEMAKER Active 04-12 00:00: 00 ACQUIRED ABSENCE OF BOTH CERVIX AND UTERUS Active 04-12 00:00: 00 ACQUIRED ABSENCE OF OVARIES, BILATERAL Active 04-12 00:00: 00 ACQUIRED ABSENCE OF OTHER SPECIFIED PARTS OF DIGESTIVE TRACT Active 04-12 00:00: 00 ACQUIRED ABSENCE OF OTHER ORGANS Active 04-12 00:00: 00 PRESENCE OF LEFT ARTIFICIAL KNEE JOINT Active 04-12 00:00: 00 PERSONAL HISTORY OF NICOTINE DEPENDENCE Active 04-12 00:00: 00 ENCOUNTER FOR THERAPEUTIC DRUG LEVEL MONITORING Active 04-12 00:00: 00 HISTORY OF FALLING Active 04-12 00:00: 00 Allergies, Adverse Reactions, Alerts Allergy Name Allergy Type Status Severity Reaction(s) Onset Date Inactive Date Treating Clinician Comments NKA Propensity to adverse reactions Active 2025-01 11:44:4 6 Medications Ordered Medication Name Filled Medication Name Start Date Stop Date Current Medication? Ordering Clinician Indication Dosage Frequency Signature (SIG) Comments Components Eliquis 2.5 mg tablet 2024-04 00:00: 00 01-16 00:00 :00 No [id number] Per instruc tions Per instructio ns (route: oral) Med Classific ation: Hematolog ical Agents spironolact one 25 mg tablet 12-28 00:00: 00 01-16 00:00 :00 No [id number] Per instruc tions TWICE DAILY Per instructio ns TWICE DAILY (route: oral) Med Classific ation: Cardiovas cular Therapy Agents amiodarone 200 mg tablet 12-23 00:00: 00 01-16 00:00 :00 No [id number] Per instruc tions DAILY Per instructio ns DAILY (route: oral) Med Classific ation: Cardiovas cular Therapy Agents amiodarone 200 mg tablet 2024-04 00:00: 00 Yes [id number] 1 tablet DAILY 1 tablet DAILY (route: oral) Med Classific ation: Cardiovas cular Therapy Agents bumetanide 1 mg tablet 2024-04 00:00: 00 Yes [id number] 1 tablet 2 TIMES DAILY 1 tablet 2 TIMES DAILY (route: oral) Med Classific ation: Cardiovas cular Therapy Agents cholecalcif sean (vitamin D3) 25 mcg (1,000 unit) capsule 2024-04 00:00: 00 Yes [id number] 1 capsule DAILY 1 capsule DAILY (route: oral) Med Classific ation: Electroly te Balance-N utritiona l Products coenzyme Q10 100 mg tablet 2024-04 00:00: 00 Yes [id number] 1 tablet DAILY 1 tablet DAILY (route: oral) Med Classific ation: Alternati ve Therapy cyanocobala min (vit B-12) 1,000 mcg tablet 2024-04 00:00: 00 Yes [id number] 1 tablet DAILY 1 tablet DAILY (route: oral) Med Classific ation: Electroly te Balance-N utritiona l Products Eliquis 5 mg tablet 2024-04 00:00: 00 Yes [id number] 0.5 tablet 2 TIMES DAILY 0.5 tablet 2 TIMES DAILY (route: oral) Med Classific ation: Hematolog ical Agents gabapentin 300 mg capsule 2024-04 00:00: 00 Yes [id number] 1 capsule DAILY 1 capsule DAILY (route: oral) Med Classific ation: Central Nervous System Agents magnesium 400 mg (as magnesium oxide) tablet 2024-04 0 00:00: 00 Yes [id number] 1 tablet DAILY 1 tablet DAILY (route: oral) Med Classific ation: Electroly te Balance-N utritiona l Products meclizine 25 mg tablet 2024-04 0 00:00: 00 Yes [id number] 1 tablet NEEDED 1 tablet NEEDED (route: oral) Med Classific ation: Gastroint estinal Therapy Agents memantine 14 mg capsule sprinkle,ex tended release 24hr 2024-04 00:00: 00 Yes [id number] 1 capsule DAILY 1 capsule DAILY (route: oral) Med Classific ation: Cognitive Disorder Therapy mineral oil enema 2024-04 00:00: 00 Yes [id number] Per instruc tions NEEDED Per instructio ns NEEDED (route: rectal) Med Classific ation: Gastroint estinal Therapy Agents nystatin 1 billion unit powder 2024-04 00:00: 00 Yes [id number] Per instruc tions NEEDED Per instructio ns NEEDED (route: miscellane ous) Med Classific ation: Anti-Infe ctive Agents omeprazole 20 mg capsule,del ayed release 2024-04 00:00: 00 Yes [id number] 1 capsule DAILY 1 capsule DAILY (route: oral) Med Classific ation: Gastroint estinal Therapy Agents Restasis MultiDose 0.05 % eye drops 2024-04 00:00: 00 Yes [id number] 1 drops 2 TIMES DAILY 1 drops 2 TIMES DAILY (route: ophthalmic (eye)) Med Classific ation: Ophthalmi c Agents simvastatin 20 mg tablet 2024-04 00:00: 00 Yes [id number] 1 tablet BEDTIME 1 tablet BEDTIME (route: oral) Med Classific ation: Cardiovas cular Therapy Agents spironolact one 25 mg tablet 2024-04 00:00: 00 Yes [id number] 1 tablet 2 TIMES DAILY 1 tablet 2 TIMES DAILY (route: oral) Med Classific ation: Cardiovas cular Therapy Agents Immunizations Ordered Immunization Name Filled Immunization Name Date Status Comments Refusal Reason INFLUENZA, TIV (INACTIVATED) 2024-12-15 00:00:00 Vital Signs Vital Name Observation Time Observation Value Commen ts Temperature 2025-03-06 14:46:00.000 98.2 [degF] Temperature 2025-02-27 09:58:00.000 98.7 [degF] Temperature 2025-02-22 09:50:00.000 98 [degF] Temperature 2025-02-20 10:30:00.000 97.4 [degF] Temperature 2025-02-13 17:26:00.000 97.4 [degF] Temperature 2025-02-12 12:18:00.000 97 [degF] Temperature 2025-02-06 17:38:00.000 97 [degF] Temperature 2025-01-30 09:15:00.000 98.4 [degF] Temperature 2025-01-23 09:25:00.000 99 [degF] Temperature 2025-01-16 11:31:00.000 99 [degF] BMI (%) 2025-01-16 11:31:00.000 28 kg/m2 Height 2025-01-16 11:31:00.000 61 [in_us] Pulse 2025-03-06 14:46:00.000 71 /min Pulse 2025-02-27 09:58:00.000 62 /min Pulse 2025-02-22 09:50:00.000 62 /min Pulse 2025-02-20 10:30:00.000 60 /min Pulse 2025-02-13 17:26:00.000 62 /min Pulse 2025-02-12 12:18:00.000 60 /min Pulse 2025-02-06 17:38:00.000 62 /min Pulse 2025-01-30 09:15:00.000 64 /min Pulse 2025-01-23 09:25:00.000 68 /min Pulse 2025-01-16 11:31:00.000 60 /min O2 Saturation (%) 2025-03-06 14:46:00.000 95 % O2 Saturation (%) 2025-02-27 09:58:00.000 96 % O2 Saturation (%) 2025-02-22 09:50:00.000 97 % O2 Saturation (%) 2025-02-20 10:30:00.000 97 % O2 Saturation (%) 2025-02-13 17:26:00.000 97 % O2 Saturation (%) 2025-02-12 12:18:00.000 97 % O2 Saturation (%) 2025-02-06 17:38:00.000 97 % O2 Saturation (%) 2025-01-30 09:15:00.000 97 % Respirations 2025-03-06 14:46:00.000 18 /min Respirations 2025-02-27 09:58:00.000 18 /min Respirations 2025-02-22 09:50:00.000 17 /min Respirations 2025-02-20 10:30:00.000 18 /min Respirations 2025-02-13 17:26:00.000 18 /min Respirations 2025-02-12 12:18:00.000 18 /min Respirations 2025-02-06 17:38:00.000 18 /min Respirations 2025-01-30 09:15:00.000 18 /min Respirations 2025-01-23 09:25:00.000 18 /min Respirations 2025-01-16 11:31:00.000 18 /min Weight (lbs) 2025-02-13 17:26:00.000 151 [lb_av] Weight (lbs) 2025-01-16 11:31:00.000 150 [lb_av] Systolic Blood Pressure 2025-03-06 14:46:00.000 114 mm [Hg] Systolic Blood Pressure 2025-02-27 09:58:00.000 124 mm [Hg] Systolic Blood Pressure 2025-02-22 09:50:00.000 124 mm [Hg] Systolic Blood Pressure 2025-02-20 10:30:00.000 128 mm [Hg] Systolic Blood Pressure 2025-02-13 17:26:00.000 122 mm [Hg] Systolic Blood Pressure 2025-02-12 12:31:00.000 118 mm [Hg] Systolic Blood Pressure 2025-02-06 17:38:00.000 126 mm [Hg] Systolic Blood Pressure 2025-01-30 09:15:00.000 122 mm [Hg] Systolic Blood Pressure 2025-01-23 09:25:00.000 124 mm [Hg] Systolic Blood Pressure 2025-01-16 11:31:00.000 104 mm [Hg] Diastolic Blood Pressure 2025-03-06 14:46:00.000 70 mm [Hg] Diastolic Blood Pressure 2025-02-27 09:58:00.000 70 mm [Hg] Diastolic Blood Pressure 2025-02-22 09:50:00.000 64 mm [Hg] Diastolic Blood Pressure 2025-02-20 10:30:00.000 70 mm [Hg] Diastolic Blood Pressure 2025-02-13 17:26:00.000 74 mm [Hg] Diastolic Blood Pressure 2025-02-12 12:31:00.000 60 mm [Hg] Diastolic Blood Pressure 2025-02-06 17:38:00.000 62 mm [Hg] Diastolic Blood Pressure 2025-01-30 09:15:00.000 70 mm [Hg] Diastolic Blood Pressure 2025-01-23 09:25:00.000 72 mm [Hg] Diastolic Blood Pressure 2025-01-16 11:31:00.000 64 mm [Hg] Plan of Treatment Planned Activity Planned Date Details Comments Future Scheduled Test SKILLED NU RSE TO EVALUATE PATIENT, IDENTIFY PRIMARY AND CO-MORBID CONDITIONS CODED PER CODING GUIDELINES, AND DEVELOP PATIENT SPECIFIC PLAN OF CARE THAT INCLUDES PATIENT GOAL FOR HOME HEALTH. [code = SKILLED NURSE TO EVALUATE PATIENT, IDENTIFY PRIMARY AND CO-MORBID CONDITIONS CODED PER CODING GUIDELINES, AND DEVELOP PATIENT SPECIFIC PLAN OF CARE THAT INCLUDES PATIENT GOAL FOR HOME HEALTH.] Future Scheduled Test SKILLED NU RSE TO PREFILL MEDIPLANNER AND INSTRUCT PATIENT/CAREGIVER ON FILLING MEDIPLANNER DEVICE WEEKLY [code = SKILLED NURSE TO PREFILL MEDIPLANNER AND INSTRUCT PATIENT/CAREGIVER ON FILLING MEDIPLANNER DEVICE WEEKLY] Future Scheduled Test SKILLED NU RSE MAY COLLECT URINE SAMPLE FOR URINE REAGENT STRIP TESTING AND/OR URINALYSIS WITH C S 1-3 PRN IF INDICATED FOR SIGNS AND SYMPTOMS OF UTI. IF REAGENT STRIP TEST IS POSITIVE FOR UTI, SKILLED NURSE TO TAKE URINE SAMPLE TO LAB FOR URINE C S AND REPORT RESULTS TO PHYSICIAN. [code = SKILLED NURSE MAY COLLECT URINE SAMPLE FOR URINE REAGENT STRIP TESTING AND/OR URINALYSIS WITH C S 1-3 PRN IF INDICATED FOR SIGNS AND SYMPTOMS OF UTI. IF REAGENT STRIP TEST IS POSITIVE FOR UTI, SKILLED NURSE TO TAKE URINE SAMPLE TO LAB FOR URINE C S AND REPORT RESULTS TO PHYSICIAN.] Future Scheduled Test SKILLED NU RSE FOR O/A AND TEACHING RELATED TO BREAST/BLADDER CANCER/NEOPLASM INCLUDING SIGNS AND SYMPTOMS OF DISEASE PROGRESSION, TREATMENT, AND MANAGEMENT OF POTENTIAL SIDE EFFECTS. [code = SKILLED NURSE FOR O/A AND TEACHING RELATED TO BREAST/BLADDER CANCER/NEOPLASM INCLUDING SIGNS AND SYMPTOMS OF DISEASE PROGRESSION, TREATMENT, AND MANAGEMENT OF POTENTIAL SIDE EFFECTS.] Future Scheduled Test SKILLED NU RSE FOR O/A, TEACHING RELATED TO GERD, CONSTIPATION FOR EARLY IDENTIFICATION OF EXACERBATION OF DISEASE PROCESS. [code = SKILLED NURSE FOR O/A, TEACHING RELATED TO GERD, CONSTIPATION FOR EARLY IDENTIFICATION OF EXACERBATION OF DISEASE PROCESS.] Future Scheduled Test SKILLED NU RSE FOR O/A, TEACHING AND MANAGEMENT OF UTI FOR EARLY IDENTIFICATION OF EXACERBATION OF DISEASE PROCESS [code = SKILLED NURSE FOR O/A, TEACHING AND MANAGEMENT OF UTI FOR EARLY IDENTIFICATION OF EXACERBATION OF DISEASE PROCESS] Future Scheduled Test SKILLED NU RSE FOR O/A OF RESPIRATORY SYSTEM TO IDENTIFY CHANGES ASSOCIATED WITH EXACERBATION AND TO PROVIDE SKILLED TEACHING ON MANAGEMENT OF MARIELA PROCESS. [code = SKILLED NURSE FOR O/A OF RESPIRATORY SYSTEM TO IDENTIFY CHANGES ASSOCIATED WITH EXACERBATION AND TO PROVIDE SKILLED TEACHING ON MANAGEMENT OF MARIELA PROCESS.] Future Scheduled Test SKILLED NU RSE TO INSTRUCT/REINFORCE MEASURES TO PREVENT BARRIERS TO CARE. [code = SKILLED NURSE TO INSTRUCT/REINFORCE MEASURES TO PREVENT BARRIERS TO CARE.] Future Scheduled Test SKILLED NU RSE FOR O/A AND SKILLED TEACHING IN MANAGEMENT OF PVD, LYMPHEDEMA CIRCULATORY/VASCULAR DISEASE. [code = SKILLED NURSE FOR O/A AND SKILLED TEACHING IN MANAGEMENT OF PVD, LYMPHEDEMA CIRCULATORY/VASCULAR DISEASE.] Future Scheduled Test SKILLED NU RSE TO INSTRUCT PATIENT/CAREGIVER ON SIGNS AND SYMPTOMS, RISK FACTORS, COMPLICATIONS, AND MANAGEMENT OF ATRIAL FIBRILLATION. [code = SKILLED NURSE TO INSTRUCT PATIENT/CAREGIVER ON SIGNS AND SYMPTOMS, RISK FACTORS, COMPLICATIONS, AND MANAGEMENT OF ATRIAL FIBRILLATION.] Future Scheduled Test SKILLED NU RSE TO PROVIDE TEACHING ON SIGNS AND SYMPTOMS AND MANAGEMENT OF HYPERTENSION. [code = SKILLED NURSE TO PROVIDE TEACHING ON SIGNS AND SYMPTOMS AND MANAGEMENT OF HYPERTENSION.] Future Scheduled Test SKILLED NU RSE FOR OBSERVATION AND ASSESSMENT TO IDENTIFY CHANGES ASSOCIATED WITH DEMENTIA AND TEACHING RELATED TO SAFETY MEASURES TO PREVENT INJURY, ELOPEMENT RISKS, BEHAVIOR CHANGES, ACTIVITIES, AND ENVIRONMENTAL CHANGES ALL SECONDARY TO IMPAIRED COGNITIVE STATUS. [code = SKILLED NURSE FOR OBSERVATION AND ASSESSMENT TO IDENTIFY CHANGES ASSOCIATED WITH DEMENTIA AND TEACHING RELATED TO SAFETY MEASURES TO PREVENT INJURY, ELOPEMENT RISKS, BEHAVIOR CHANGES, ACTIVITIES, AND ENVIRONMENTAL CHANGES ALL SECONDARY TO IMPAIRED COGNITIVE STATUS.] Future Scheduled Test SKILLED NU RSE FOR O/A, TEACHING AND SELF-MANAGEMENT RELATED TO HEART FAILURE. INSTRUCT PATIENT/CAREGIVER ON SIGNS AND SYMPTOMS OF EXACERBATION TO REPORT AND IMPORTANCE OF OBTAINING AND RECORDING DAILY WEIGHT AND/OR MEASUREMENTS. SN OR TRAINED PATIENT/CAREGIVER TO OBTAIN WEIGHT DAILY AND WEIGHT GAIN OF 2 LBS OVERNIGHT OR 5 LBS IN 1 WEEK TO BE REPORTED TO PHYSICIAN/PROVIDER. IF UNABLE TO WEIGH PATIENT, SN OR TRAINED PATIENT/CAREGIVER TO OBTAIN MEASUREMENT OF CALF IN CM DAILY AND REPORT AN INCREASE OF 2 CM TO PHYSICIAN/PROVIDER. [code = SKILLED NURSE FOR O/A, TEACHING AND SELF-MANAGEMENT RELATED TO HEART FAILURE. INSTRUCT PATIENT/CAREGIVER ON SIGNS AND SYMPTOMS OF EXACERBATION TO REPORT AND IMPORTANCE OF OBTAINING AND RECORDING DAILY WEIGHT AND/OR MEASUREMENTS. SN OR TRAINED PATIENT/CAREGIVER TO OBTAIN WEIGHT DAILY AND WEIGHT GAIN OF 2 LBS OVERNIGHT OR 5 LBS IN 1 WEEK TO BE REPORTED TO PHYSICIAN/PROVIDER. IF UNABLE TO WEIGH PATIENT, SN OR TRAINED PATIENT/CAREGIVER TO OBTAIN MEASUREMENT OF CALF IN CM DAILY AND REPORT AN INCREASE OF 2 CM TO PHYSICIAN/PROVIDER.] Future Scheduled Test SKILLED NU RSE FOR O/A AND SKILLED TEACHING RELATED TO SIGNS AND SYMPTOMS AND MANAGEMENT OF OA, GOUT. [code = SKILLED NURSE FOR O/A AND SKILLED TEACHING RELATED TO SIGNS AND SYMPTOMS AND MANAGEMENT OF OA, GOUT.] Future Scheduled Test PATIENT OVALLE S A RISK OF HOSPITALIZATION AND ED USE. SKILLED NURSE TO ESTABLISH SUPPORT MEASURES TO MINIMIZE RISK OF HOSPITALIZATION AND ED USE, AND INSTRUCT PATIENT/CAREGIVER ON METHODS TO REDUCE AVOIDABLE HOSPITALIZATION AND ED USE. [code = PATIENT HAS A RISK OF HOSPITALIZATION AND ED USE. SKILLED NURSE TO ESTABLISH SUPPORT MEASURES TO MINIMIZE RISK OF HOSPITALIZATION AND ED USE, AND INSTRUCT PATIENT/CAREGIVER ON METHODS TO REDUCE AVOIDABLE HOSPITALIZATION AND ED USE.] Future Scheduled Test SKILLED NU RSE TO PROVIDE INSTRUCTION TO PATIENT/CAREGIVER RELATED TO DISCHARGE PLANNING. [code = SKILLED NURSE TO PROVIDE INSTRUCTION TO PATIENT/CAREGIVER RELATED TO DISCHARGE PLANNING.] Future Scheduled Test SKILLED NU RSE TO PERFORM ENVIRONMENTAL SAFETY RISK ASSESSMENT AND FALL RISK ASSESSMENT AND PROVIDE INSTRUCTION TO IMPLEMENT ENVIRONMENTAL SAFETY AND FALL PREVENTION STRATEGIES THROUGHOUT THE CERTIFICATION PERIOD. SKILLED NURSE WILL MAINTAIN SITUATIONAL AWARENESS AND WILL NOTIFY CLINICAL [employer] AND PHYSICIAN/PROVIDER WITH ANY CHANGE IN CONDITION. [code = SKILLED NURSE TO PERFORM ENVIRONMENTAL SAFETY RISK ASSESSMENT AND FALL RISK ASSESSMENT AND PROVIDE INSTRUCTION TO IMPLEMENT ENVIRONMENTAL SAFETY AND FALL PREVENTION STRATEGIES THROUGHOUT THE CERTIFICATION PERIOD. SKILLED NURSE WILL MAINTAIN SITUATIONAL AWARENESS AND WILL NOTIFY CLINICAL [employer] AND PHYSICIAN/PROVIDER WITH ANY CHANGE IN CONDITION.] Future Scheduled Test SKILLED NU RSE FOR OBSERVATION AND ASSESSMENT OF PATIENT S PAIN LEVEL AND EFFECTIVENESS OF PAIN MANAGEMENT REGIMEN. SKILLED NURSE TO INSTRUCT PATIENT/CAREGIVER REGARDING PHARMACOLOGIC AND NON-PHARMACOLOGIC PAIN CONTROL MEASURES. SKILLED NURSE TO REPORT TO PHYSICIAN IF PAIN LEVEL IS OUTSIDE OF ESTABLISHED PARAMETERS. [code = SKILLED NURSE FOR OBSERVATION AND ASSESSMENT OF PATIENT S PAIN LEVEL AND EFFECTIVENESS OF PAIN MANAGEMENT REGIMEN. SKILLED NURSE TO INSTRUCT PATIENT/CAREGIVER REGARDING PHARMACOLOGIC AND NON-PHARMACOLOGIC PAIN CONTROL MEASURES. SKILLED NURSE TO REPORT TO PHYSICIAN IF PAIN LEVEL IS OUTSIDE OF ESTABLISHED PARAMETERS.] Future Scheduled Test SKILLED NU RSE TO ASSESS PATIENT'S SKIN INTEGRITY AND INSTRUCT PATIENT/CAREGIVER ON MEASURES TO PREVENT PRESSURE ULCERS. [code = SKILLED NURSE TO ASSESS PATIENT'S SKIN INTEGRITY AND INSTRUCT PATIENT/CAREGIVER ON MEASURES TO PREVENT PRESSURE ULCERS.] Future Scheduled Test SKILLED NU RSE TO REVIEW PATIENT MEDICATIONS (PRESCRIPTION/OTC). INSTRUCT PATIENT/CAREGIVER ON ALL MEDICATIONS INCLUDING PURPOSE, WHEN TO TAKE, IMPORTANCE OF MEDICATION ADHERENCE, MONITORING OF EFFECTIVENESS, ADVERSE DRUG REACTIONS, POSSIBLE SIDE EFFECTS, AND WHEN TO NOTIFY AGENCY OR PHYSICIAN/PROVIDER OF ANY CONCERNS. [code = SKILLED NURSE TO REVIEW PATIENT MEDICATIONS (PRESCRIPTION/OTC). INSTRUCT PATIENT/CAREGIVER ON ALL MEDICATIONS INCLUDING PURPOSE, WHEN TO TAKE, IMPORTANCE OF MEDICATION ADHERENCE, MONITORING OF EFFECTIVENESS, ADVERSE DRUG REACTIONS, POSSIBLE SIDE EFFECTS, AND WHEN TO NOTIFY AGENCY OR PHYSICIAN/PROVIDER OF ANY CONCERNS.] Goal Patient Goal - STAY HOME Goal Provider Goal - A PLAN OF CARE WILL BE ESTABLISHED THAT MEETS PATIENT'S INTERMEDIATE NEEDS AND INCLUDES PATIENT GOAL FOR HOME HEALTH. Goal Provider Goal - PATIENT/CAREGIVER WILL DEMONSTRATE UNDERSTANDING OF PREFILLING MEDIPLANNER DEVICE BY THE END OF EPISODE. Goal Provider Goal - URINE SPECIMEN WILL BE OBTAINED PRN FOR SIGNS AND SYMPTOMS OF UTI AND RESULTS WILL BE REPORTED TO PHYSICIAN THROUGHOUT THE CERTIFICATION PERIOD. Goal Provider Goal - PATIENT/CAREGIVER WILL VERBALIZE/DEMONSTRATE MANAGEMENT OF CANCER/NEOPLASM DISEASE AND THE SIDE EFFECTS OF TREATMENTS DURING THIS EPISODE. Goal Provider Goal - EXACERBATIONS OF GASTROINTESTINAL DISEASE WILL BE PROMPTLY IDENTIFIED AND INTERVENTIONS IMPLEMENTED TO MINIMIZE RISKS TO PATIENT BY END OF EPISODE. Goal Provider Goal - PATIENT/CAREGIVER WILL VERBALIZE UNDERSTANDING OF GENITOURINARY DISEASE PROCESS, AND EXACERBATIONS OF GENITOURINARY DISEASE WILL BE PROMPTLY IDENTIFIED FOR EARLY INTERVENTION THROUGHOUT THE CERTIFICATION PERIOD. Goal Provider Goal - PATIENT/CAREGIVER WILL VERBALIZE/DEMONSTRATE MANAGEMENT OF RESPIRATORY DISEASE PROCESS. CHANGES IN RESPIRATORY STATUS WILL BE IDENTIFIED AND REPORTED TO PHYSICIAN FOR PROMPT INTERVENTION THROUGHOUT THE CERTIFICATION PERIOD. Goal Provider Goal - PATIENT / CAREGIVER WILL VERBALIZE UNDERSTANDING OF BARRIERS PREVENTING PROPER CARE AND DEMONSTRATE MEASURES TO ELIMINATE THOSE BARRIERS DURING THIS EPISODE. Goal Provider Goal - PATIENT/CAREGIVER WILL VERBALIZE/DEMONSTRATE THE ABILITY TO MANAGE LYMPHEDEMA CIRCULATORY DISEASE PROCESS AND EXACERBATIONS WILL BE IDENTIFIED FOR EARLY INTERVENTION THROUGHOUT THE CERTIFICATION PERIOD. Goal Provider Goal - PATIENT/CAREGIVER WILL VERBALIZE UNDERSTANDING OF SIGNS AND SYMPTOMS, COMPLICATIONS, AND MANAGEMENT OF ATRIAL FIBRILLATION THROUGHOUT THE CERTIFICATION PERIOD. Goal Provider Goal - PATIENT/CAREGIVER WILL VERBALIZE SIGNS AND SYMPTOMS OF HYPERTENSION AND WILL BE ABLE TO DEMONSTRATE ABILITY TO MANAGE EXACERBATION BY END OF THE EPISODE. Goal Provider Goal - PATIENT/CAREGIVER WILL VERBALIZE /DEMONSTRATE APPROPRIATE ENVIRONMENTAL/SAFETY MODIFICATIONS IN RESPONSE TO BEHAVIOR/COGNITIVE CHANGES ASSOCIATED WITH DEMENTIA DIAGNOSIS THROUGHOUT THE CERTIFICATION PERIOD. Goal Provider Goal - PATIENT/CAREGIVER WILL VERBALIZE/DEMONSTRATE KNOWLEDGE AND MANAGEMENT OF HEART FAILURE DISEASE PROCESS BY END OF EPISODE. Goal Provider Goal - PATIENT/CAREGIVER WILL VERBALIZE UNDERSTANDING OF MUSCULOSKELETAL DISEASE INCLUDING SIGNS AND SYMPTOMS, MANAGEMENT, AND PRESCRIBED TREATMENT REGIMEN BY END OF EPISODE. Goal Provider Goal - PATIENT WILL HAVE SUPPORT MEASURES ESTABLISHED TO PREVENT HOSPITALIZATION AND ED USE AND PATIENT/CAREGIVER WILL VERBALIZE/DEMONSTRATE METHODS TO REDUCE AVOIDABLE HOSPITALIZATION AND ED USE BY END OF EPISODE. Goal Provider Goal - PATIENT/CAREGIVER WILL VERBALIZE UNDERSTANDING OF DISCHARGE PLANNING INSTRUCTIONS BY DATE OF DISCHARGE. Goal Provider Goal - PATIENT/CAREGIVER WILL VERBALIZE/DEMONSTRATE EFFECTIVE ENVIRONMENTAL SAFETY AND FALL PREVENTION STRATEGIES, WILL REMAIN SAFE IN THE COMMUNITY, AND WILL BE FREE OF DANGER TO SELF AND OTHERS THROUGHOUT THE CERTIFICATION PERIOD. Goal Provider Goal - PATIENT/CAREGIVER WILL DEMONSTRATE UNDERSTANDING OF PHARMACOLOGIC AND NONPHARMACOLOGIC PAIN CONTROL MEASURES AND PATIENT WILL HAVE IMPROVEMENT IN PAIN INTERFERING WITH ACTIVITY EVIDENCED BY PAIN AT A LEVEL THAT IS ACCEPTABLE TO THE PATIENT AND PAIN LEVEL WITHIN ESTABLISHED PARAMETERS BY END OF CERTIFICATION PERIOD. Goal Provider Goal - PATIENT/CAREGIVER WILL VERBALIZE UNDERSTANDING OF PRESSURE ULCER PREVENTION BY END OF THE EPISODE. Goal Provider Goal - PATIENT/CAREGIVER WILL VERBALIZE UNDERSTANDING OF EDUCATION PROVIDED ON MEDICATIONS BY THE END OF THE CERTIFICATION PERIOD. Encounters Start Date/Time End Date/Time Encounter Type Admission Type Attending [facility] Care Department Encounter ID Discharge Date Discharge Status Discharge Condition Discharge Reason Percent Goals Met 2025-01-16 00:00:00 2025-03-16 00:00:00 Outpatient NEW ADMISSION CARRIE LICEA [facility] [id number]
[2025-03-28 14:50] VITALS: BMI 29.2
[2025-03-29] VITALS (16 sets, daily range): BP systolic 104–127; BP diastolic 43–76; PULSE 60–90; RESP 10–17; TEMP 36.9–37.2; O2SAT 96–100
--- NOTE | 2025-03-29 14:02 | W.PM.OPN ---
Operative Note Operative Note Date of Service: 03/29/25 Narrative: Indication: Dual chamber pacemaker generator TONI Sinus node dysfunction Summary: 1. Generator replacement of [employer] dual chamber pacemaker (CPT 49963) 2. Moderate sedation provided by wy for 39 minutes (CPT 42788, +26166 x1) Narrative: Patient presented to the EP lab in a fasting, nonsedated state after written informed consent was verified. The procedure was performed under moderate sedation provided by wy. 2g IV Ancef was administered prior to skin incision. The patient was prepped and draped in the usual sterile manner. A 1-inch incision was made over the existing pacemaker generator. The pacemaker pocket was exposed using a combination of electrocautery and blunt dissection. The existing generator was removed from the pocket. The new pacemaker generator was brought to the field. The leads were detached from the existing pacemaker and promptly inserted into the respective ports of the new generator. The leads were secured in the header using the provided torque wrench. The pocket was flushed with an antibiotic irrigant. Any bleeders within the pocket were controlled with electrocautery. The leads were wrapped underneath the new generator and the pacemaker was placed back within the existing pocket. A TYRX envelope was placed within the pocket. Pacemaker testing showed lead parameters to be within the desirable range. The pocket was closed in two layers using 2-0 followed by 4-0 V-Loc. Dermabond was applied over the incision site. Gauze and tegaderm dressing was then placed over the incision site followed by a pressure dressing. Patient was then transported back to recovery in a stable condition. Procedure start: 12:59 Procedure end: 1:38
--- NOTE | 2025-03-29 14:07 | PM.CNCAR ---
History of Present Illness History of Present Illness Date of Service: 03/29/25 Requesting physician: Facundo Solis Chief complaint: Encounter for adjustment and management of other Narrative: 89-year old female with medical histor significant for sinus node dysfunction s/p DC PPM, atrial fibrillation, CKD 3, HTN, and GERD is referred to EP for generator replacement of DC PPM reaching TONI. Pt denies recent episodes of cp, sob, palpitations, or syncope. Review of Systems Review of Systems: Yes all other systems are reviewed and are negative [facility] Past Medical History Medical History Dementia Paroxysmal atrial fibrillation Acute diastolic (congestive) heart failure Persistent atrial fibrillation Multinodular goiter (nontoxic) Pedal edema Removal of staple Visit for suture removal Complicated urinary tract infection Dysphagia Screening for breast cancer Abnormal ultrasound of breast Abnormal mammogram of left breast Multiple falls Physical deconditioning Breast cancer, left Breast cancer Chronic renal insufficiency Cardiac pacemaker in situ AV block Leg edema Screening for diabetes mellitus On beta jake at home Arthritis Vertigo MARIELA (obstructive sleep apnea) Sick sinus syndrome Peripheral vascular disease Menieres disease Urinary bladder cancer Obesity Gout GERD (gastroesophageal reflux disease) Hypercholesterolemia Family History Family History Father Stroke Mother Heart disease Surgical History Surgical History History of lumpectomy of left breast (03/10/23) History of esophagogastroduodenoscopy (EGD) S/P cardiac pacemaker procedure Hx of colonoscopy History of cystoscopy S/P MARION-BSO (total abdominal hysterectomy and bilateral salpingo-oophorectomy) History of cataract surgery History of knee replacement History of tonsillectomy History of appendectomy History of cholecystectomy Social History Social History Household Members: None Housing: Apartment Are you a primary child care sitter to a significant other at home: No Do you presently have visiting nurse or other home services: Yes (vna) Alcohol intake: never Comment: patient refusing alarms Patient Tobacco Use Status: Former Tobacco user Tobacco use type: Cigarette e-Cigarette/Vaping Use: Never Used Second Hand Smoke Exposure: No Have you been hit, kicked, punched, or otherwise hurt by someone within the past year? If so, by whom?: No Are you DNR?: Yes Advance Directives: No Advance Directives Information Provided: Yes Advance Directives Date on File: 09/15/21 service: No Current occupational status: retired Cognitive needs: No Hearing needs: Yes Vision needs: Yes Meds Allergies Allergy/AdvReac Type Severity Reaction Status Date / Time No Known Allergies (No Known Allergy Verified 03/22/25 23:58 Allergies*) Home Medications ?Medication ?Instructions ?Recorded ?Confirmed ?Last Taken ?Type cholecalciferol (vitamin D3) 25 25 mcg PO DAILY 03/11/20 03/29/25 03/22/25 History mcg (1,000 unit) capsule coenzyme Q10 100 mg capsule (Co 100 mg PO DAILY 03/11/20 03/29/25 03/22/25 History Q-10) cyclosporine 0.05 % eye drops in a 1 drp ophthalmic (eye) BID 07/15/24 03/29/25 03/22/25 History dropperette (Restasis) nystatin 100,000 unit/gram topical 1 appl topical DAILY PRN Rash 03/09/25 03/29/25 03/22/25 History powder Physical Exam Exam: Exam: General: NAD Eyes: anicteric Neck: supple Heart: RRR Abd: soft Exts: warm Neuro: no gross focal deficits Psych: stable Vital Signs: Vital Signs: Last Vital Signs Temp 98.4 F 03/29/25 11:01 Pulse 60 03/29/25 13:35 Resp 11 L 03/29/25 13:35 BP 116/50 L 03/29/25 13:35 Pulse Ox 99 03/29/25 13:35 O2 Del Method Room Air 03/29/25 13:35 O2 Flow Rate 2 03/29/25 13:30 BMI result Body Mass Index 29.2 Assessment and Plan (1) Essential hypertension: Status: Acute (2) Heart failure with preserved ejection fraction: Status: Acute (3) AV block: Status: Acute (4) Cardiac pacemaker in situ: Status: Acute (5) Paroxysmal atrial fibrillation: Status: Acute (6) Peripheral vascular disease: Status: Acute (7) Sinus node dysfunction: Status: Acute Plan I discussed the indication, risks, and alternatives of generator replacement of DC PPM with the patient. We mutually decided to proceed forward with the procedure. Total time managing care of this patient today: 41 minutes. Procedures Date of Service Date of Service: 03/29/25
--- NOTE | 2025-03-29 15:56 | PC.NURSE ---
Discharge teaching with patient and written instructions sent with patient for rehab facility ([facility]) Pt verbalizes understanding of instructions.
== END 2025-03-29 15:42 | disposition home or self-care (01) ==
PROVIDERS: PCP Internal Medicine; Visit Provider Student in an Organized Health Care Education/Training Program
DX: Z45.018 Encounter for adjustment and management of other part of cardiac pacemaker (principal); I50.30 Unspecified diastolic (congestive) heart failure; I11.0 Hypertensive heart disease with heart failure; I48.0 Paroxysmal atrial fibrillation; I44.30 Unspecified atrioventricular block; I13.0 Hypertensive heart and chronic kidney disease with heart failure and stage 1 through stage 4 chronic kidney disease, or unspecified chronic kidney disease; N18.30 Chronic kidney disease, stage 3 unspecified; Z87.891 Personal history of nicotine dependence; F03.90 Unspecified dementia, unspecified severity, without behavioral disturbance, psychotic disturbance, mood disturbance, and anxiety; G47.33 Obstructive sleep apnea (adult) (pediatric); Z79.01 Long term (current) use of anticoagulants; Z79.899 Other long term (current) drug therapy; Z66 Do not resuscitate; Z85.3 Personal history of malignant neoplasm of breast
CPT/HCPCS: 33228; 99152; 99153; C1785; C1889; J0690; J2003; J2250; J3010; J3374; Q9967

== ENCOUNTER 2025-04-06 17:13 | Outpatient (REF) | payer MEDICARE, SELFPAY ==
[2025-04-07 11:25] LABS: Chlamydia pneumoniae PCR Not Detected (Not Detect.); Coronavirus 229E PCR Not Detected (Not Detect.); Coronavirus HKU1 PCR Not Detected (Not Detect.); Coronavirus NL63 PCR Not Detected (Not Detect.); Coronavirus OC43 PCR Not Detected (Not Detect.); RSV PCR Detected (Not Detect.); Rhino/Enterovirus PCR Not Detected (Not Detect.)
[2025-04-07 11:31] LABS: Influenza A H1 PCR Not Detected (Not Detect.); Influenza A H1-2009 PCR Not Detected (Not Detect.); Influenza A H3 PCR Not Detected (Not Detect.); SARS-CoV-2 PCR Not Detected (Not Detect.)
== END 2025-04-06 17:14 | disposition home or self-care (01) ==
LOC: HO.MMNH1L 17:13
PROVIDERS: Visit Provider Hospitalist
DX: N17.9 Acute kidney failure, unspecified (principal); N18.4 Chronic kidney disease, stage 4 (severe); N39.0 Urinary tract infection, site not specified
CPT/HCPCS: 87633

== ENCOUNTER 2025-04-10 11:11 | Emergency (ER) | payer MEDICARE, SELFPAY ==
[2025-04-10] VITALS (7 sets, daily range): BP systolic 130–144; BP diastolic 48–80; PULSE 60–90; RESP 16–18; TEMP 36.4–37.3; O2SAT 90–99; BMI 31.9
--- NOTE | ~2025-04-10 | CT_ITS ---
EXAMINATION: CT HEAD WITHOUT CONTRAST CLINICAL INFORMATION: Fall off couch. COMPARISON: Numerous priors, most recently 06/26/2024. TECHNIQUE: Contiguous axial imaging was performed from the skull base to vertex without intravenous administration of contrast. This CT examination was performed using dose optimization techniques as appropriate, variously including the following: *Automated exposure control *Adjustment of mA and/or kV according to patient size (this includes techniques or standardized protocols for targeted exams where dose is matched to indication/reason for exam; i.e. extremities or head) *Use of iterative reconstruction technique FINDINGS: There is no evidence of intracranial hemorrhage or extra-axial fluid collection. There is no mass effect, or edema. No CT evidence of acute territorial infarct. Ventricles, sulci, and cisterns are mildly diffusely prominent, in keeping with age related cerebral and cerebellar volume loss. No hydrocephalus. No midline shift. Negative hyperdense MCA sign. Negative insular ribbon sign. Patchy periventricular and deep white matter hypoattenuation is consistent with mild small vessel ischemic changes. 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 Normal pituitary. Atheromatous calcification of the bilateral carotid siphons and V4 segments vertebral arteries bilaterally. Globes and orbital contents demonstrate bilateral lens replacements. No extracranial soft tissue abnormalities. The paranasal sinuses, mastoid air cells, and tympanic cavities are normally aerated. No suspicious bony abnormalities. There are no acute fractures evident. CT/CT head/brain wo IV con IMPRESSION: No acute intracranial abnormality. No fracture evident. Electronically signed by: Allan Wick MD 04/10/2025 01:[address] [facility]
--- NOTE | ~2025-04-10 | XR_ITS ---
EXAMINATION: XR CHEST CLINICAL INFORMATION: Dyspnea COMPARISON: 07/15/2024. TECHNIQUE: Frontal view of the chest was obtained. FINDINGS: Left-sided dual-lead pacer device in place, with leads extending into the right ventricle and right atrium. Mildly elevated left hemidiaphragm, unchanged. The cardiac, hilar, and mediastinal contours are normal. Aortic mural calcification. The lungs appear clear bilaterally. No pneumothorax or effusion. No focal osseous or soft tissue abnormality. Cholecystectomy clips noted. XR/XR chest 1V IMPRESSION: Dual-lead pacer device in place. No active pulmonary disease. Electronically signed by: Allan Wick MD 04/10/2025 11:41 AM [facility]
--- NOTE | 2025-04-10 11:25 | ECG_ITS ---
Test Reason : WEAKNESS Blood Pressure : */* mmHG Vent. Rate : 60 BPM Atrial Rate : 60 BPM P-R Int : 238 ms QRS Dur : 164 ms QT Int : 474 ms P-R-T Axes : * 220 42 degrees QTcB Int : 474 ms AV dual-paced rhythm with prolonged AV conduction Abnormal ECG When compared with ECG of 23-Mar-2025 00:28, Vent. rate has decreased by 6 bpm Referred By: Catie Estes Electronically Signed By: AUDREY ROCHE
[2025-04-10 12:23] LABS: MANUAL DIFF FLAG NO
[2025-04-10 12:25] LABS: Hematocrit 33.5 % (37.0-47.0); Hemoglobin 10.6 g/dl (12.0-16.0); Imm Gran Abs Auto 0.03 X10*3/uL (0.00-0.03); Imm Gran Pct Auto 0.4 % (0.0-0.4); Lymphocytes Absolute Auto 1.1 X10*3/uL (1.2-4.9); Mean Corpuscular HGB Conc 31.6 g/dl (31.0-35.0); Mean Corpuscular Hemoglobin 28.7 pg (27.0-33.0); Mean Corpuscular Volume 90.8 fL (80.0-98.0); NRBC Abs Auto 0.000 X10*3/uL (0.0-0.012); NRBC Pct Auto 0.0 /100WBC (0.0-0.2); Platelet Count 370 X10*3/uL (160-400); Red Blood Count 3.69 X10*6/uL (4.20-5.50); White Blood Count 7.5 X10*3/uL (4.8-10.8)
[2025-04-10 12:43] LABS: Alanine Aminotransferase 29 U/L (0-31); Albumin Level 3.1 g/dL (3.5-5.0); Alkaline Phosphatase 135 U/L (39-117); Anion Gap 11 (12-20); Aspartate Amino Transferase 84 U/L (5-31); Blood Urea Nitrogen 27 mg/dL (9-16); Calcium 8.8 mg/dL (8.4-10.2); Carbon Dioxide 27 mmol/L (22-29); Chloride 106 mmol/L (96-108); Creatinine Clr Calc Pharmacy 28.8; Estimated Glomerular Filt Rate 40; Potassium 3.8 mmol/L (3.3-5.1); Sodium 140 mmol/L (135-145); Total Protein 6.2 g/dL (6.5-8.0)
[2025-04-10 12:50] LABS: Troponin-I High Sensitivity 14.6 ng/L (<3.5-17.0)
[2025-04-10 13:02] LABS: Resp Syncy Virus RNA Qual PCR POSITIVE (Negative); SARS COV2 PCR INHOUSE NEGATIVE (Negative)
--- NOTE | 2025-04-10 13:15 | ED.GENADULT ---
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 She comes in after leaving rehab on Wednesday since then she has been having cold symptoms when she was at [facility] they diagnosed with RSV on 04/06/2025. She has been getting weaker and weaker since being at home on Wednesday. She tried to get up and go to the bathroom but she was not strong enough so she ended up trying to get herself on the couch and then slid off last night. She has been on the floor since she denies any injury. Her family found her on the floor. She feels very weak and she has had a poor p.o. intake MD complaint: RSV cold symptoms weakness Onset (ago): day(s) (Few) Radiation: non-radiation Severity: moderate Pain Consistency: constant Relieving factors: none Exacerbating factors: movement Associated symptoms: cough, loss of appetite and malaise Treatments prior to arrival: none Related Data Home Medications ?Medication ?Instructions ?Recorded ?Confirmed cholecalciferol (vitamin D3) 25 25 mcg PO DAILY 03/11/20 03/29/25 mcg (1,000 unit) capsule coenzyme Q10 100 mg capsule (Co 100 mg PO DAILY 03/11/20 03/29/25 Q-10) cyclosporine 0.05 % eye drops in a 1 drp ophthalmic (eye) BID 07/15/24 03/29/25 dropperette (Restasis) nystatin 100,000 unit/gram topical 1 appl topical DAILY PRN Rash 03/09/25 03/29/25 powder Previous Rx's ?Medication ?Instructions ?Recorded simvastatin 20 mg tablet 20 mg PO BEDTIME #90 tabs 10/15/23 cyanocobalamin (vitamin B-12) 1,000 mcg PO DAILY #90 caps 04/19/24 1,000 mcg capsule gabapentin 300 mg capsule 300 mg PO BEDTIME #90 caps 05/04/24 amiodarone 200 mg tablet 200 mg PO DAILY #30 tabs 10/24/24 omeprazole 20 mg capsule,delayed 20 mg PO DAILY@0630 #90 caps 11/06/24 release apixaban 2.5 mg tablet 2.5 mg PO BID #60 tabs 01/15/25 polyethylene glycol 3350 17 gram 17 g PO DAILY #30 ea 03/12/25 oral powder packet (Miralax) sennosides 8.6 mg-docusate sodium 1 tab-cap PO BID #60 tabs 03/12/25 50 mg tablet memantine 14 mg capsule 14 mg PO DAILY #30 caps 03/15/25 sprinkle,extended release 24hr cefuroxime axetil 250 mg tablet 250 mg PO Q12H #12 tabs 03/26/25 magnesium oxide 400 mg (241.3 mg 400 mg PO DAILY #90 tabs 04/03/25 magnesium) tablet Allergies Allergy/AdvReac Type Severity Reaction Status Date / Time No Known Allergies (No Known Allergy Verified 04/10/25 11:31 Allergies*) Review of Systems Review of Systems: Yes all other systems are reviewed and are negative [facility] Past Medical History Attestation statement: The following information was validated with the patient. Source: old records reviewed Medical History Dementia Paroxysmal atrial fibrillation Acute diastolic (congestive) heart failure Persistent atrial fibrillation Multinodular goiter (nontoxic) Pedal edema Removal of staple Visit for suture removal Complicated urinary tract infection Dysphagia Screening for breast cancer Abnormal ultrasound of breast Abnormal mammogram of left breast Multiple falls Physical deconditioning Breast cancer, left Breast cancer Chronic renal insufficiency Cardiac pacemaker in situ AV block Leg edema Screening for diabetes mellitus On beta jake at home Arthritis Vertigo MARIELA (obstructive sleep apnea) Sick sinus syndrome Peripheral vascular disease Menieres disease Urinary bladder cancer Obesity Gout GERD (gastroesophageal reflux disease) Hypercholesterolemia Surgical History History of lumpectomy of left breast (03/10/23) History of esophagogastroduodenoscopy (EGD) S/P cardiac pacemaker procedure Hx of colonoscopy History of cystoscopy S/P MARION-BSO (total abdominal hysterectomy and bilateral salpingo-oophorectomy) History of cataract surgery History of knee replacement History of tonsillectomy History of appendectomy History of cholecystectomy Family History Family History Father Stroke Mother Heart disease Social History Social History Household Members: None Housing: Apartment Are you a primary reservoir caretaker to a significant other at home: No Do you presently have visiting nurse or other home services: Yes (vna) Alcohol intake: never Patient Tobacco Use Status: Former Tobacco user Tobacco use type: Cigarette Smoked in Last 30 Days: No e-Cigarette/Vaping Use: Never Used Second Hand Smoke Exposure: No Advance Directives: Yes Advance Directives on File: Yes Advance Directives Date on File: 09/15/21 service: No Current occupational status: retired Cognitive needs: No Hearing needs: Yes Vision needs: Yes Physical Exam ED Vital Signs: Vital Signs - 24 hr 04/10/25 14:33 04/10/25 14:40 04/10/25 20:29 Temperature 97.5 F 97.6 F Pulse Rate 60 60 Respiratory Rate 18 18 Blood Pressure 144/50 H 137/49 L Pulse Oximetry 99 90 L 96 Oxygen Delivery Method Room Air Room Air 04/11/25 04:35 04/11/25 06:12 Temperature 97.7 F Pulse Rate 59 Respiratory Rate 16 18 Blood Pressure 121/48 L Pulse Oximetry 95 Oxygen Delivery Method Room Air BMI result Body Mass Index 31.9 Appearance: Alert. Oriented X3. No acute distress. Eyes: Pupils equal, round and reactive to light. ENT: Pharynx normal. Neck: Normal inspection. Neck supple. CVS: Normal heart rate and rhythm. Pulses normal. Respiratory: No respiratory distress. Breath sounds coarse and diminished she is 95% on room air Abdomen: Soft and nontender. Skin: Skin warm and dry. Normal skin color. Extremities: Bilateral pitting edema right leg greater than left leg Neuro: Oriented X 3. No motor deficit. No sensory deficit. CN2-12 intact Course Course Course Narrative: 2:00 PM 04/10/2025 (JILL LEE): At this time patient to be placed in observation she does not require any admission she is not hypoxic she has no other acute abnormality plan to refer her back to PT case management discussed with patient and family she is a DNR DNI She has elevation in BNP but other than what I suspect is chronic leg swelling she has no hypoxia no signs of edema on x-ray Reevaluation(s) Reevaluation #1: Time: 13:44 Date: 04/11/25 Provider: Jagjit Parra PA-C Patient in physician observation for STR needs. no overnight events reported by nursing. Patient will discharge to [facility] for STR. Will continue to monitor as we await transportation for discharge at 3:30 via BLS. Medications Administered Discontinued Medications Generic Name Dose Route Start Last Admin Trade Name Freq PRN Reason Stop Dose Admin Acetaminophen 975 mg 04/11/25 03:27 04/11/25 03:32 Acetaminophen 325 Mg Tablet PO 04/11/25 03:28 975 mg ONCE ONE Administration Albuterol Sulfate 2.5 mg/ 0 mg 04/10/25 13:18 04/10/25 13:21 Albuterol/Ipratropium 3 ml INHALE 04/10/25 13:19 1 dose ONCE ONE Administration Medical Decision Making Medical Decision Making MDM Narrative: This is a pleasant 89-year-old female with a past medical history of bladder cancer status post TURBT, AFib on Eliquis, permanent pacemaker, urinary retention , 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 She is not hypoxic. She did fall out of bed I am going to obtain basic labs as well as CPK and a CT head to rule out trauma given her Eliquis use. She will get a breathing treatment given her rhonchi. She will also get a chest x-ray to rule out pneumonia. If there is no abnormal medical workup or change in vital signs and she will need to be referred back to short-term rehab she can not stay at home like this. Differential Diagnosis Differential Diagnoses: The differential diagnosis associated with the presentation includes RSV, pneumonia, STACI on CKD, dehydration Admission/Observation Consideration of admission/observation: Escalation of care including admission/observation considered Consult Healthcare Provider Management of the patient was discussed with: Greenhouse Assistant Lab Data MDM Lab Attestation statement: I reviewed the patient's lab results. 04/10/25 12:10 04/10/25 12:10 Labs: Lab Results 12/30/25 12/30/25 12/30/25 Range/Units 12:10 12:10 20:46 WBC 7.5 (4.8-10.8) X10*3/uL RBC 3.69 L (4.20-5.50) X10*6/uL Hgb 10.6 L (12.0-16.0) g/dl Hct 33.5 L (37.0-47.0) % MCV 90.8 (80.0-98.0) fL MCH 28.7 (27.0-33.0) pg MCHC 31.6 (31.0-35.0) g/dl RDW 16.3 H (11.0-16.0) % Plt Count 370 (160-400) X10*3/uL MPV 9.6 (9.4-12.3) fL Immature Gran % (Auto) 0.4 (0.0-0.4) % Neut % (Auto) 69.2 (45-73) % Lymph % (Auto) 15.0 L (20-40) % [place] % (Auto) 11.1 H (2-11) % Eos % (Auto) 3.5 (0-4) % Baso % (Auto) 0.8 (0-2) % Lymph # (Auto) 1.1 L (1.2-4.9) X10*3/uL [place] # (Auto) 0.8 (0.1-1.2) X10*3/uL Eos # (Auto) 0.3 (0.0-0.4) X10*3/uL Baso # (Auto) 0.1 (0.0-0.2) X10*3/uL Abs Immat Gran (auto) 0.03 (0.00-0.03) X10*3/uL Absolute Neuts (auto) 5.2 (2.0-8.3) x10*3/uL Absolute Nucleated RBC 0.000 (0.0-0.012) X10*3/uL Nucleated RBC % (auto) 0.0 (0.0-0.2) /100WBC Hold Purple Top SEE NOTE SEE NOTE Sodium 140 (135-145) mmol/L Potassium 3.8 (3.3-5.1) mmol/L Chloride 106 (96-108) mmol/L Carbon Dioxide 27 (22-29) mmol/L Anion Gap 11 L (12-20) BUN 27 H (9-16) mg/dL Creatinine 1.26 (0.5-1.4) mg/dL Estim Creat Clear Calc 28.8 Estimated GFR 40 Random Glucose 80 (60-115) mg/dL Calcium 8.8 D (8.4-10.2) mg/dL Total Bilirubin 0.3 (0.0-1.0) mg/dL AST 84 H (5-31) U/L ALT 29 (0-31) U/L Alkaline Phosphatase 135 H (39-117) U/L Total Creatine Kinase 396 H (26-140) U/L Troponin I High Sens 14.6 (<3.5-17.0) ng/L NT-Pro-B Natriuret Pep 796.4 H (<300) pg/mL Total Protein 6.2 L (6.5-8.0) g/dL Albumin 3.1 L (3.5-5.0) g/dL Urine Color Dark Yellow Urine Appearance Clear Urine pH 5.5 (5.0-9.0) Ur Specific [place] 1.020 (1.005-1.025) Urine Protein 30 (1+) H (Neg-Trace) mg/dL Urine Glucose (UA) Negative (Negative) mg/dL Urine Ketones Negative (Negative) mg/dL Urine Blood Moderate (2+) H (Negative) Urine Nitrite Negative (Negative) Ur Leukocyte Esterase Small (1+) H (Negative) Urine RBC >20 H (0-2) /HPF Urine WBC 6-10 H (0-5) /HPF Ur Squamous Epith Cells 6-10 (0-2) /HPF Urine Bacteria None Seen (None Seen) Hyaline Casts 0-2 (0-2) /LPF Influenza Type A (PCR) NEGATIVE (Negative) Influenza Type B (PCR) NEGATIVE (Negative) RSV RNA Qual (PCR) POSITIVE A (Negative) SARS-CoV-2 RNA (RT-PCR) NEGATIVE (Negative) Independent Interpretation I performed an independent interpretation of an: EKG, Plain X-Ray (No pneumonia) and CT Scan (No intracranial hemorrhage) Interpretation: Rate: 60 Rhythm: Ventricular paced [place]: Left Wide QRS paced ST T wave : Paced appearance of STT wave changes no ST-elevation qTC: 474 prior studies: No change The study has been interpreted contemporaneously by me. . Radiology Impression Discussion of test interpretation with radiology: I have reviewed the radiologist's reading. Independent Historian Clinical information obtained from an independent historian. History obtained from or confirmed by: EMS and Other (Daughter) External Record Review External record reviewed: Inpatient record, Office record, Outpatient record and Prior outpatient labs Discharge Plan Discharge Clinical Impression: Weakness, RSV bronchiolitis Patient Disposition: Xfer Inpatient Rehab Fac Transfer Details: TO [facility] ACCEPTING Instructions: Weakness (ED), RSV (Respiratory Syncytial Virus) Infection (ED) Additional Instructions: Patient is positive for RSV, with weakness and physical deconditioning and is a high fall risk Prescriptions: No Action simvastatin 20 mg tablet 20 mg PO BEDTIME Qty: 90 3RF cyanocobalamin (vitamin B-12) 1,000 mcg capsule 1,000 mcg PO DAILY Qty: 90 3RF omeprazole 20 mg capsule,delayed release(DR/EC) 20 mg PO DAILY@0630 Qty: 90 1RF memantine 14 mg capsule,sprinkle,ER 24hr 14 mg PO DAILY Qty: 30 0RF magnesium oxide 400 mg (241.3 mg magnesium) tablet 400 mg PO DAILY Qty: 90 3RF cyclosporine [Restasis] 0.05 % dropperette 1 drp ophthalmic (eye) BID cefuroxime axetil 250 mg Tablet 250 mg PO Q12H Qty: 12 0RF nystatin 100,000 unit/gram powder 1 appl topical DAILY PRN (Reason: Rash) Rx Instructions: Apply 2 times per day thin coat of topical powder to affected area sennosides-docusate sodium 8.6-50 mg tablet 1 tab-cap PO BID Qty: 60 0RF polyethylene glycol 3350 [Miralax] 17 gram powder in packet 17 g PO DAILY Qty: 30 0RF cholecalciferol (vitamin D3) 25 mcg (1,000 unit) capsule 25 mcg PO DAILY coenzyme Q10 [Co Q-10] 100 mg capsule 100 mg PO DAILY gabapentin 300 mg capsule 300 mg PO BEDTIME Qty: 90 3RF apixaban 2.5 mg tablet 2.5 mg PO BID Qty: 60 3RF amiodarone 200 mg tablet 200 mg PO DAILY Qty: 30 5RF Referrals: [facility] [Outside] Po,Román Leslie MD [Primary Care Provider, Internal Medicine] Print Language: Croatian
[2025-04-10] MEDS: Albuterol Sulfate 2.5 MG, Albuterol/Iprat 2.5/0.5MG 3 ML 3 ML INHALE (13:21)
[2025-04-10 13:48] LABS: NT Pro B Type Natriuretic Pept 796.4 pg/mL (<300)
--- NOTE | 2025-04-10 14:45 | MHC.CM.ED ---
Received consult for assessment of d/c needs: Met with pt and dtr: pt recently d/c'd from [facility] - lives w/dtr, has no services and uses a rollator walker. Pt fell at home - no injury or medical reason for admission. PT eval supports STR: pt would like to return to [facility] - referral made. Awaiting acceptance / bed offer and transportation arrangements at this time. ED CM to follow
--- OUTSIDE RECORDS SUMMARY | 2025-04-10 15:51 | XMS_ITS ---
Author Organization [facility] Care Team Providers Care Animal Trainer Name Role Phone Alvina Mays Unavailable Unavailable Lalitha Julien Unavailable Unavailable Didperri Lalitha Unavailable Unavailable Bzdel Richy Unavailable Unavailable Jean, Danyel Unavailable Unavailable Allergies and adverse reactions No Known Allergies Care Team Name Role Address Phone Organization Dates Danyel Jean PCP [address] [facility] [address], [facility] (Office): : [facility] 03/26/2025 - 04/08/2025 Alvina Mays [address] [facility] [address], [place], [address], [facility] (Office): : [facility] 03/26/2025 - 04/08/2025 Lalitha Julien [address] [place] [address], [address], [facility] (Office): : [facility] 03/26/2025 - 04/08/2025 Lalitha Julien [address] [place] [id number] [place] [address] (Office): : [facility] 03/26/2025 - 04/08/2025 Richy Bernard [address] [place], [place], [address] (Office): : [facility] 03/26/2025 - 04/08/2025 Encounters Encounter Type Code Code System Description Performer Discharge Disposition Service Delivery Location Date Ambulatory Encounter CPT Code = [id number] Acute kidney injury Mohan Marrufo Discharge to other destination [facility] Address: [address] [place] [address]. 03/26 Ambulatory Encounter CPT Code = [id number] Urinary tract infectious disease Mohan Marrufo Discharge to other destination [facility] Address: [address] [place] [address]. 03/26 Ambulatory Encounter CPT Code = [id number] Chronic kidney disease stage 4 Mohan Marrufo Discharge to other destination [facility] Address: [address] [place] [address]. 03/26 Ambulatory Encounter CPT Code = [id number] Essential hypertension Mohan Marrufo Discharge to other destination [facility] Address: [address] [place] [address]. 03/26 Ambulatory Encounter CPT Code = [id number] Peripheral vascular disease Mohan Marrufo Discharge to other destination [facility] Address: [address] [place] [address]. 03/26 Ambulatory Encounter CPT Code = [id number] Obstructive sleep apnea syndrome Mohan Marrufo Discharge to other destination [facility] Address: [address] [place] [address]. 03/26 Ambulatory Encounter CPT Code = [id number] Vertigo of central origin Mohan Marrufo Discharge to other destination [facility] Address: [address] [place] [address]. 03/26 Ambulatory Encounter CPT Code = [id number] M ni re''s disease Mohan Marrufo Discharge to other destination [facility] Address: [address] [place] [address]. 03/26 Ambulatory Encounter CPT Code = [id number] Undernutrition Mohan Marrufo Discharge to other destination [facility] Address: [address] [place] [address]. 03/26 Ambulatory Encounter CPT Code = [id number] Gastroesophageal reflux disease without esophagitis Mohan Marrufo Discharge to other destination [facility] Address: [address] [place] [address]. 03/26 Ambulatory Encounter CPT Code = [id number] Sick sinus syndrome Mohan Marrufo Discharge to other destination [facility] Address: [address] [place] [address]. 03/26 Ambulatory Encounter CPT Code = [id number] Implantation procedure Mohan Marrufo Discharge to other destination [facility] Address: [address] [place] [address]. 03/26 Goals Section Goals Description Status Target Date I plan to discharge to: Spec mary jo- To community alone, To Community with Family, [facility], LTC Placement, Other- Undecided at current time. Pending outcome of therapy sessions, clinical medical stability progress reviewed weekly. Active 06/19/2025 I will be able to communicat e effectively and with dignity with my care team, and to have my needs met through the review Active 06/19/2025 I will be able to communicat e effectively and with dignity with my care team, and to have my needs met through the review. Active 06/19/2025 I will be at reduced risk fo r complications of self care performance deficit and impaired mobility daily through the review date. Active 06/19/2025 I will be at reduced risk fo r new or worsened impaired skin integrity daily through the review date. Active 06/19/2025 I will be free from discomfo rt or adverse side effects of antibiotic therapy through the review date. Active 06/19/2025 I will be free from discomfo rt or adverse side effects of anticoagulant therapy through the review date. Active 026 I will be free from infection through the next r eview date. Active 06/19/2025 I will be free from s/s/x of fluid deficit by/through the review date. Active 06/19/2025 I will be free from s/sx of dehydration through next review date. Active 06/19/2025 I will be free of complications of PVD through t he review date. Active 06/19/2025 I will be free of fall relat ed injury through the next review date. Active 06/19/2025 I will maintain adequate nut ritional status as evidenced by maintaining weight within +/-5% of CBW, no s/sx of malnutrition, and consuming at least 76% of all meals daily through review date. Active 06/19/2025 I will maintain or improve m y independence and mobility through review date. Active 06/19/2025 I will not have discomfort r elated to side effects of analgesia through the review date. Active 06/19/2025 I will not have skin breakdo wn due to incontinence through the review date. Active 06/19/2025 I will not have skin breakdo wn due to incontinence through the review date. Active 06/19/2025 I will participate in activi ties of choice 1-3 times per week by review date Active 06/19/2025 I will remain free from disc omfort and complications related to gastro-esophageal reflux through the review date. Active 06/10 I will remain free from sign s/ symptoms of hypertension complications through review date. Active 06/19/2025 I will show effectiveness of medication use as evidenced by a reduction in convulsionsymptoms by the review date. Active I will verbalize adequate re lief of pain or ability to cope with incompletely relieved pain through the review date. Active My risk for respiratory comp lications and infections will be mitigated through the review date. Active 06/19/2025 My skin integrity will be im proved or maintained by next review date. Active 06/19/2025 My urinary tract infection w ill resolve without complications by the review date. Active 06/19/2025 Resident will maintain heart rate within acceptable limits as determined by MD/ pacemaker settings through review date. Active 06/19/2025 The resident will have intac t skin, free of redness, blisters, or discoloration through review date. Active 06/19/2025 The resident's advance direc tives are in effect and their wishes will be carried out through the next review. Active Functional Status Code Name Recorded Time Value Entered By Eating 04/08/2025 Independent jocab Lying to sitting on side of bed 04/08/2025 Supervision or touching assistance jocab Oral hygiene 04/08/2025 Supervision or t ouching assistance jocab Personal hygiene 04/08/2025 Supervision or touching assistance jocab Shower/bathe self 04/08/2025 Supervision or touching assistance jocab Sit to lying 04/08/2025 Supervision or t ouching assistance jocab Toilet transfer 04/08/2025 Supervision or t ouching assistance jocab Toileting hygiene 04/08/2025 Independent jocab Immunizations Immunization Status Vaccine Details Vaccine Code CodeSystem Date Notes Influenza completed Influenza, split virus, trivalent, injectable, contains preservative 141 CVX created date: 03/29/2023 administer ed date: 01/12/2023 (Shingles) Vaccine completed zoster vaccine recombinant 187 CVX created date: 03/27/2025 administer ed date: 06/04/2013 (COVID-19) [employer] Original Primary Dose Vaccine 2 of 2 completed SARS-COV-2 (COVID-19) vaccine, mRNA, spike protein, LNP, preservative free, 30 mcg/0.3mL dose 208 CVX created date: 03/29/2023 administer ed date: 05/22/2020 (COVID-19) [employer] Original Primary Dose Vaccine 1 of 2 completed SARS-COV-2 (COVID-19) vaccine, mRNA, spike protein, LNP, preservative free, 30 mcg/0.3mL dose 208 CVX created date: 03/29/2023 administer ed date: 05/01/2020 (COVID-19) [facility] Original Booster Vaccine completed SARS-COV-2 (COVID-19) vaccine, mRNA, spike protein, LNP, preservative free, 30 mcg/0.3mL dose 208 CVX created date: 03/29/2023 administer ed date: 07/30/2021 (COVID-19) [facility] Original Booster Vaccine completed SARS-COV-2 (COVID-19) vaccine, mRNA, spike protein, LNP, preservative free, 30 mcg/0.3mL dose 208 CVX created date: 03/29/2023 consent date: 03/29/2023 administer ed date: 02/04/2021 (COVID-19) [facility] Bivalent Vaccine completed SARS-COV-2 (COVID-19) vaccine, mRNA, spike protein, LNP, bivalent, preservative free, 30 mcg/0.3 mL dose, sanjiv-sucrose formulation 300 CVX created date: 03/29/2023 administer ed date: 09/25/2022 (Pneumococcal) PCV13- Conjugate 13-valent Vaccine completed pneumococcal conjugate vaccine, 13 valent 133 CVX created date: 03/27/2025 administer ed date: 05/29/2015 (Tetanus, Diphtheria, and Acellular Pertussis) Tdap completed tetanus toxoid, reduced diphtheria toxoid, and acellular pertussis vaccine, adsorbed 115 CVX created date: 03/29/2023 administer ed date: 01/08/2023 (Pneumococcal) PCV20- Conjugate 20-valent Vaccine completed Pneumococcal conjugate vaccine 20-valent (PCV20), polysaccharide [id number] conjugate, adjuvant, preservative free 216 CVX created date: 03/29/2023 administer ed date: 02/15/2023 (Pneumococcal) PPSV23- Polysaccharide 23-valent Vaccine completed pneumococcal polysaccharide vaccine, 23 valent 33 CVX created date: 03/27/2025 administer ed date: 01/12/2018 (Influenza) FLUAD - Adjuvanted - High Dose - 65+ cancelled Influenza, adjuvanted, inactivated, trivalent, injectable, preservative free 168 CVX created date: 03/27/2025 consent date: 03/27/2025 Educated by on 03/27/2025 (COVID-19) Updated Moderna Vaccine completed SARS-COV-2 (COVID-19) vaccine, mRNA, spike protein, LNP, preservative free, 50 mcg/0.5 mL dose 312 CVX created date: 03/29/2025 administer ed date: 01/13/2024 (COVID-19) [id number] Updated Moderna Vaccine cancelled SARS-COV-2 (COVID-19) vaccine, mRNA, spike protein, LNP, preservative free, 50 mcg/0.5 mL dose 312 CVX created date: 03/27/2025 consent date: 03/27/2025 Educated by on 03/27/2025 Medications Section Medication Name Status Code CodeSystem Dose Route Frequency Admin Type Sig Text Start Date End Date Indication Amiodarone HCl Tablet 200 MG active 52477 8 RXNORM 1 table t Oral one time a day Routin e Give 1 table t by mouth one time a day for abnor mal heart rhyth m 2024 - abnormal heart rhythm Cholecalcif sean Tablet 1000 UNIT active 47588 2 RXNORM 1 table t Oral one time a day Routin e Give 1 table t by mouth one time a day for Suppl ement 2024 - Supplement Eliquis Tablet 2.5 MG active 28088 41 RXNORM 1 table t Oral every 12 hours Routin e Give 1 table t by mouth every 12 hours for Antic oagul ant Monit or for S/S bleed ing 2024 - Anticoagula nt Coenzyme Q10 Oral Tablet 100 MG active 48552 6 RXNORM 100 mg Oral one time a day Routin e Give 100 mg by mouth one time a day for Suppl ement 2024 - Supplement Cyanocobala min Tablet 1000 MCG active 37100 3 RXNORM 1 table t Oral one time a day Routin e Give 1 table t by mouth one time a day for Suppl ement 2024 - Supplement Esomeprazol e Magnesium Capsule Delayed Release 20 MG aborted 90387 6 RXNORM 1 capsu le Oral one time a day Routin e Give 1 capsu le by mouth one time a day for GERD 03/26 GERD CycloSPORIN E Emulsion 0.05 % active 95946 1 RXNORM 1 drop Ophtha lmic two times a day Routin e Insti ll 1 drop in both eyes two times a day for dry eyes due to infla mmati on 2024 - dry eyes due to inflammatio n Gabapentin Oral Capsule 300 MG active 41459 1 RXNORM 1 capsu le Oral at bedtime Routin e Give 1 capsu le by mouth at bedti la for Pain 2024 - Pain Magnesium Oxide Tablet 400 MG active 31801 1 RXNORM 1 table t Oral one time a day Routin e Give 1 table t by mouth one time a day for Suppl ement 2024 - Supplement Memantine HCl ER Oral Capsule Extended Release 24 Hour 14 MG active 40399 4 RXNORM 1 capsu le Oral one time a day Routin e Give 1 capsu le by mouth one time a day for to treat Alzhe gary' s 2024 - to treat Alzheimer's Omeprazole Tablet Delayed Release 20 MG active 84609 4 RXNORM 1 table t Oral in the morning Routin e Give 1 table t by mouth in the morni ng for acid indig estio n Give at least 1/2 hour prior to meals , DO NOT CRUSH or CHEW 2024 - acid indigestion GlycoLax Powder active 70330 3 RXNORM 17 gram Oral one time a day Routin e Give 17 gram by mouth one time a day for const ipati on mix powde r in 6 ounce s of fluid of [facility] e 2024 - constipatio n Nystatin Powder 425263 UNIT/GM aborted 91748 6 RXNORM n/a n/a Topica l as needed PRN Apply to [facility] [place] [facility] topic ally every 12 hours as neede d for 2 times a day to [facility] [place] area 03/26 2 times a day to affected area Sennosides- Docusate Sodium Tablet 8.6-50 MG active 19074 0 RXNORM 1 table t Oral two times a day Routin e Give 1 table t by mouth two times a day for Const ipati on 2024 - Constipatio n Nystatin Powder 518283 UNIT/GM aborted 81665 6 RXNORM n/a n/a Topica l as needed PRN Apply to [facility] [place] [facility] topic ally every 12 hours as neede d for 2 times a day to [facility] [place] area 04/04 2 times a day to affected area Simvastatin Tablet 20 MG active 01466 1 RXNORM 1 table t Oral at bedtime Routin e Give 1 table t by mouth at bedti me for jennifer stero l contr ol 2024 - cholesterol control Cefuroxime Axetil Oral Tablet 250 [place] [address] 7 RXNORM 1 table t Oral every 12 hours Routin e Give 1 table t by mouth every 12 hours for UTI for 6 Days 04/02 UTI Tubersol Solution 5 UNIT/0[place] [address] 5 RXNORM 0.1 ml Intrad ermal one time only One Time Only Injec t 0.1 ml intra derma lly one time only for 1st PPD test until 03/27 23:59 Injec t 0.1ml [5TU] intra derma lly withi n 24 hours of admis lanette. Recor d site. Read in 48 hours . If negat janet, admin ister 2nd step in 7-10 days, read in 48 hours and recor d.... AND Injec t 0.1 ml intra derma lly one time only for 2nd PPD test until 04/06 23:59 Injec t 0.1ml [5TU] intra derma lly. Recor d site. Read in 48 hours and recor d... 03/28 1st PPD test 95384 5 RXNORM 0.1 ml Intrad ermal one time only One Time Only Injec t 0.1 ml intra derma lly one time only for 1st PPD test until 03/27 23:59 Injec t 0.1ml [5TU] intra derma lly withi n 24 hours of admis lanette. Recor d site. Read in 48 hours . If negat janet, admin ister 2nd step in 7-10 days, read in 48 hours and recor d.... AND Injec t 0.1 ml intra derma lly one time only for 2nd PPD test until 04/06 23:59 Injec t 0.1ml [5TU] intra derma lly. Recor d site. Read in 48 hours and recor d... 04/07 2nd PPD test Acetaminoph en Oral Tablet 325 MG active 99884 2 RXNORM 2 table t Oral as needed PRN Give 2 table t by mouth every 6 hours as neede d for Pain Total Dose 650mg * *DO NOT EXCEE D 3 grams in 24 hours AND Give 2 table t by mouth every 6 hours as neede d for Anamoose ratur e great er than 101.F Total Dose 650mg * *DO NOT EXCEE D 3 grams in 24 hours 2024 - Pain 12628 2 RXNORM 2 table t Oral as needed PRN Give 2 table t by mouth every 6 hours as neede d for Pain Total Dose 650mg * *DO NOT EXCEE D 3 grams in 24 hours AND Give 2 table t by mouth every 6 hours as neede d for Anamoose ratur e great er than 101.F Total Dose 650mg * *DO NOT EXCEE D 3 grams in 24 hours 2024 - Temperature greater than 101.F Milk of Magnesia Oral Suspension 400 MG/5ML aborted 7 RXNORM 30 ml Oral as needed PRN Give 30 ml by mouth every 24 hours as neede d for Const ipati on Give 30ml by mouth if no bowel movem ent in 3 days (9 Shift s). 03/26 Constipatio n Bisacodyl Rectal Suppository 10 MG active 9 RXNORM 1 suppo sitor y Rectal as needed PRN Inser t 1 suppo sitor y recta lly every 24 hours as neede d for Const ipati on Give 1 Suppo sitor y (10mg ) via rectu m if no resul ts from Milk of Magne [place] after 24 hours . 2024 - Constipatio n Fleet Enema Rectal Enema 7-19 GM/118ML aborted 88148 5 RXNORM 1 appli cator Rectal as needed PRN Inser t 1 appli cator recta lly as neede d for Const ipati on Give 1 appli cator full (118 ml)if no resul ts from Bisac odyl suppo sitor y. 03/26 Constipatio n Zinc Oxide External Paste 25 % active 9 RXNORM n/a n/a Topica l every shift Routin e Apply to [facility] topic ally every shift for wound 2024 - wound Multivitami n Adult (Minerals) Oral Tablet active 1 table t Oral one time a day Routin e Give 1 table t by mouth one time a day for wound heali ng 2024 - wound healing Ascorbic Acid Tablet 250 MG active 3 RXNORM 1 table t Oral one time a day Routin e Give 1 table t by mouth one time a day for wound heali ng 2024 - wound healing Nystatin Powder 917709 UNIT/GM active 29506 6 RXNORM n/a n/a Topica l as needed PRN Apply to [facility] [place] [facility] topic ally every 12 hours as neede d for 2 times a day to [facility] [place] rash area re-ev aluat e in 14 days until 04/10 23:59 start ed on 03/26 is to stop on 04/10 with re-ev al 04/11 2 times a day to affected rash area re-evaluate in 14 days Furosemide Tablet 20 MG active 25643 9 RXNORM 1 table t Oral one time a day Routin e Give 1 table t by mouth one time a day for Lower ext edema Monit or for Side Effec ts Diure tics for signs and sympt oms of dehyd ratio n, elect rolyt es, acute kidne y injur y, monit or for edema , conge stion , weigh t moore es. 2024 - Lower ext edema guaiFENesin ER Oral Tablet Extended Release 12 Hour 600 MG active 30316 2 RXNORM 600 mg Oral two times a day Routin e Give 600 mg by mouth two times a day for Conge stion for 5 Days 04/13 Congestion Mental Status Section Date Assessment Total Score Description 04/02/2023 BIMS 15 cognitively int act CAM 0 No delirium ind icated PHQ-9 00 03/31/2023 BIMS 15 cognitively int act CAM 0 No delirium ind icated PHQ-9 00 Insurance Providers Coverage Status Coverage Type Relationship to Subscriber Member Identifier Subscriber Identifier Group Identifier Payer Identifier and Other information 2025 Code: 1 Code System OID:[id number] [id number]. 3.221.5 Code System Name: Source of Payment Typology (PHDSC) Display: Medicare Translation : Code: [place] Code System: OID:[id number]. 6.255.1336 Code System Name: Insurance Type Code ([id number]) Display Name: Medicare Part A Code: SELF Code System Name: HL7 RoleCode Code System OID:[id number] .[id number] Display Name: Self Root: [id number] Address: Plan of Treatment Section Interventions Intervention Code Code System Display Name Proposed D ate Problems Problem # Description Date of onset Resolved Date Code CodeSystem Concern Status 1 ACUTE KIDNEY FAILURE, UNSPECIFIED 03/26/[address] active 2 UNSPECIFIED PROTEIN-CALORIE MALNUTRITION 03/26/[address] active 3 URINARY TRACT INFECTION, SITE NOT SPECIFIED 03/26/[address] active 4 COVID-19 03/31/2023 03/25/[address] compl eted 5 CHRONIC KIDNEY DISEASE, STAGE 4 (SEVERE) 03/29/[address] active 6 ESSENTIAL (PRIMARY) HYPERTENSION 03/29/[address] active 7 GASTRO-ESOPHAGEAL REFLUX DISEASE WITHOUT ESOPHAGITIS 03/29/[address] active 8 HYPOKALEMIA 03/29/2023 03/25/[address] com pleted 9 MENIERE'S DISEASE, UNSPECIFIED EAR 03/29/[address] active 10 MUSCLE WASTING AND ATROPHY, NOT ELSEWHERE CLASSIFIED, MULTIPLE SITES 03/29/2023 03/25/[address] completed 11 OBSTRUCTIVE SLEEP APNEA (ADULT) (PEDIATRIC) 03/29/[address] active 12 OTHER LACK OF COORDINATION 03/29/2023 03/25/[address] completed 13 PERIPHERAL VASCULAR DISEASE, UNSPECIFIED 03/29/[address] active 14 PRESENCE OF CARDIAC PACEMAKER 03/29/[address] active 15 REPEATED FALLS 03/29/2023 03/25/[address] completed 16 RHABDOMYOLYSIS 03/29/2023 03/25/[address] completed 17 SICK SINUS SYNDROME 03/29/[address] T active 18 TRAUMATIC ISCHEMIA OF MUSCLE, SUBSEQUENT ENCOUNTER 03/29/2023 03/25/[address] completed 19 UNSPECIFIED ABNORMALITIES OF GAIT AND MOBILITY 03/29/2023 03/25/[address] completed 20 UNSPECIFIED FALL, SUBSEQUENT ENCOUNTER 03/29/2023 03/25/[address] completed 21 UNSPECIFIED LACK OF COORDINATION 03/29/2023 03/25/[address] completed 22 VERTIGO OF CENTRAL ORIGIN 03/29/[address] active Reason for Referral No Reasons for Referral Entered Social History Social History Observation Description Start Date End Date Code Code System Current Smoking Status Tobacco smoking consumption unknown 306589436 SNOMED CT Sex Assigned At Female 1935 29183-[address] [facility] Gender Identity Sexual Orientation Vital Signs Code Code System Vitals Name Values and Units Timing Information 9279-[address] [facility] Respiratory Rate Value=20.0 Units=/m in 04/08/2025 8462-[address] [facility] Blood Pressure-Diastolic Value=92 Un its=mmHg 04/08/2025 8480-[address] [facility] Blood Pressure-Systolic Jpgzi=612 Un its=mmHg 04/08/2025 8310-[address] [facility] Body Temperature Value=98.2 Units= F 04/08/2025 8867-[address] [facility] Heart rate Value=74.0 Units=/min 05274-[address] [facility] O2 % BldC Oximetry Value=94.0 Units= % 04/08/2025 25287-[address] [facility] Pain Level Value=0.0 04/08/2025 76636-[address] [facility] Weight Oheri=637.2 Units=Lbs 8302-2 [facility] Height Value=65.0 Units=Inches 03/29/2023
[2025-04-10 21:04] LABS: Appearance Urine Clear; Glucose Urine UA Negative (Negative); PH 5.5 (5.0-9.0); Specific Gravity - Urine 1.020 (1.005-1.025); UMIC TRIGGER UACC YES
[2025-04-10 21:47] LABS: UACC Culture Trigger YES
[2025-04-11 04:35] VITALS: RESP 16
[2025-04-11 06:12] VITALS: BP 121/48; PULSE 59; RESP 18; TEMP 36.5; O2SAT 95
--- NOTE | 2025-04-11 10:59 | MHC.CM.PN ---
Addendum entered by Rae Herndon 04/11/25 11:53: THIS CM MET WITH PATIENT TO DISCUSS STR BED OFFERS, SHE ACCEPTS A BED AT [facility] TODAY, SHE WILL TRANSPORT THERE VIA [facility] [employer] AT 3PM. Original Note: STR REFERRAL REVIEWED, 4 BED OFFERS RECEIVED. THIS CM PLACED CALL TO PATIENTS DAUGHTER/HCP ALEN TO OBTAIN STR PREFERENCE, VOICEMAIL LEFT, AWAITING RETURN CALL.
[2025-04-11 14:17] VITALS: BP 116/41; PULSE 65; RESP 20; TEMP 36.9; O2SAT 95
[2025-04-11 14:58] VITALS: BP 116/41; PULSE 65; RESP 20; TEMP 36.9; O2SAT 95
== END 2025-04-11 14:58 ==
PROVIDERS: Emergency Provider Emergency Medicine; PCP Internal Medicine
DX: R53.1 Weakness (principal); J21.0 Acute bronchiolitis due to respiratory syncytial virus; R05.9 Cough, unspecified; R60.0 Localized edema; R06.00 Dyspnea, unspecified; I48.0 Paroxysmal atrial fibrillation; E78.00 Pure hypercholesterolemia, unspecified; Z95.0 Presence of cardiac pacemaker; Z03.818 Encounter for observation for suspected exposure to other biological agents ruled out; Z79.02 Long term (current) use of antithrombotics/antiplatelets; Z79.899 Other long term (current) drug therapy
CPT/HCPCS: 36415; 70450; 71045; 80053; 81001; 81003; 82550; 83880; 84484; 85025; 87086; 87637; 93005; 94640; 97162; 99285

== ENCOUNTER → 2025-04-10 11:25 | Outpatient (BNV) | payer MEDICARE, SELFPAY | PROVIDERS: Emergency Provider Emergency Medicine; PCP Internal Medicine; Visit Provider Internal Medicine | DX: R94.31 Abnormal electrocardiogram [ECG] [EKG] (principal); Z95.0 Presence of cardiac pacemaker | CPT/HCPCS: 93010 ==

== ENCOUNTER → 2025-04-10 11:28 | Outpatient (BNV) | payer MEDICARE, SELFPAY | PROVIDERS: Emergency Provider Emergency Medicine; PCP Internal Medicine; Visit Provider Radiology Diagnostic Radiology | DX: Z04.3 Encounter for examination and observation following other accident (principal); R06.00 Dyspnea, unspecified; Z95.0 Presence of cardiac pacemaker | CPT/HCPCS: 70450; 71045 ==